=== PATIENT | female | born 1960 | race Caucasian/White ===

== ENCOUNTER → 2020-11-07 16:28 | Outpatient (CLI) | payer MEDICARE, SELFPAY ==
[2020-11-07 17:39] LABS: White Blood Count 5.6 K/mm3 (4.8-10.8)
[2020-11-07 17:40] LABS: Basophils % 0.4 % (0.1-2.0); Eosinophils % 0.1 % (0.1-12.0); Hematocrit 42.1 % (37.0-47.0); Hemoglobin 13.2 g/dL (12.2-16.2); Lymphocytes # 2.1 K/mm3 (0.7-4.5); Lymphocytes % 37.4 % (10-50); Mean Corpuscular HGB Conc 31.3 g/dL (31.8-35.4); Mean Corpuscular Volume 92.4 fl (81-99); Mean Platelet Volume 7.6 fl (7.4-10.4); Monocytes # 0.4 K/mm3 (0.1-1.0); Monocytes % 6.9 % (1.7-9.3); Neutrophils # 3.1 K/mm3 (1.8-7.8); Neutrophils % 55.1 % (37.0-80.0); Platelet Count 271 K/mm3 (142-424); Red Blood Count 4.56 M/mm3 (4.20-5.40); Red Cell Distribution Width 13.4 % (11.5-17.5)
[2020-11-07 21:51] LABS: Alanine Aminotransferase 14 U/L (12-78); Albumin Level 3.7 g/dl (3.5-5.0); Albumin/Globulin Ratio 1.2 (1.1-1.8); Alkaline Phosphatase 194 U/L (38-126); Anion Gap 14.1 mEq/L (5-15); Aspartate Amino Transferase 29 U/L (14-36); Bilirubin,Total 0.5 mg/dl (0.2-1.3); Blood Urea Nitrogen 15 mg/dl (7-17); Calcium 9.1 mg/dl (8.4-10.2); Carbon Dioxide 25 mmol/L (22.0-30.0); Chloride 107 mmol/L (98-107); Cholesterol 174 mg/dl (140-200); Estimated Glomerular Filt Rate 27 ml/min (>60); GFR (African American) 32 ML/MIN (>60); Globulin 3.1 g/dL (1.3-3.2); Glucose 82 mg/dl (74-100); HDL Cholesterol 43 mg/dl (40-60); Magnesium 1.7 mg/dl (1.6-2.3); Potassium 3.1 mmoL/L (3.5-5.1); Sodium 143 mmol/L (136-145); Total Protein,Serum 6.8 g/dl (6.3-8.2); Triglycerides 220 mg/dl (30-150); VLDL Cholesterol 44 mg/dL (0-40)
[2020-11-07 22:02] LABS: Direct LDL Cholesterol 85.76 mg/dL (100-129)
[2020-11-07 22:22] LABS: Thyroid Stimulating Hormone 2.36 uIU/mL (0.465-4.68)
[2020-11-08 09:29] LABS: Ferritin 74.4 ng/ml (11.1-264)
[2020-11-11 08:04] LABS: Levetiracetam (Keppra) 39.8 ug/mL (10.0-40.0)
== END ==
PROVIDERS: Visit Provider Internal Medicine Adolescent Medicine
DX: R19.7 Diarrhea, unspecified (principal); R56.9 Unspecified convulsions; G25.81 Restless legs syndrome; Z51.81 Encounter for therapeutic drug level monitoring; Z79.899 Other long term (current) drug therapy
CPT/HCPCS: 36415; 80053; 80061; 80177; 82728; 83036; 83735; 84443; 85025

== ENCOUNTER → 2021-01-25 16:27 | Outpatient (CLI) | payer MEDICARE, SELFPAY ==
[2021-01-25 17:25] LABS: Chloride 108 mmol/L (98-107); Sodium 140 mmol/L (136-145)
[2021-01-25 17:28] LABS: Blood Urea Nitrogen 13 mg/dl (7-17); Carbon Dioxide 25 mmol/L (22.0-30.0); Estimated Glomerular Filt Rate 33 ml/min (>60); GFR (African American) 40 ML/MIN (>60)
[2021-01-25 17:29] LABS: Calcium 8.9 mg/dl (8.4-10.2); Glucose 88 mg/dl (74-100)
== END ==
PROVIDERS: Visit Provider Internal Medicine Adolescent Medicine
DX: E11.69 Type 2 diabetes mellitus with other specified complication (principal); Z79.4 Long term (current) use of insulin
CPT/HCPCS: 36415; 80048

== ENCOUNTER 2021-01-26 19:05 | Emergency (ER) | payer MEDICARE, SELFPAY ==
--- NOTE | 2021-01-26 19:01 | ECG_ITS ---
APPROVED REPORT Exam: Resting ECG HR:76 bpm ECG Measurements Heart Rate 76 AXES [place] 166 P 65 QRSd 90 QRS 41 QT 430 T 71 QTc 483 Conclusion Normal sinus rhythm Normal ECG Electronically signed by : Zachariah Mercado MD 01/28/2021 08:58:40
[2021-01-26 19:03] VITALS: BP 113/63; PULSE 88; RESP 16; TEMP 36.9; O2SAT 99; BMI 44.6
--- NOTE | 2021-01-26 19:21 | CT_ITS ---
PROCEDURE INFORMATION: Exam: CT Cervical Spine Without Contrast Exam date and time: 01/26/2021 7:21 PM Age: 60 years old Clinical indication: Injury or trauma; Fall TECHNIQUE: Imaging protocol: Computed tomography images of the cervical spine without contrast. Radiation optimization: All CT scans at this facility use at least one of these dose optimization techniques: automated exposure control; mA and/or kV adjustment per patient size (includes targeted exams where dose is matched to clinical indication); or iterative reconstruction. COMPARISON: CT HEAD/BRAIN WO CON 01/26/2021 7:37 PM FINDINGS: Bones/joints: No cervical fracture or subluxation. Severe osteopenia and advanced degenerative changes. No CT evidence of critical stenosis. Discs/Spinal canal/Neural foramina: See Bones/joints finding. Lungs: Lung apices are normal. Soft tissues: Unremarkable. IMPRESSION: No cervical fracture or subluxation.
--- NOTE | 2021-01-26 19:21 | CT_ITS ---
PROCEDURE INFORMATION: Exam: CT Head Without Contrast Exam date and time: 01/26/2021 7:21 PM Age: 60 years old Clinical indication: Injury or trauma; Fall TECHNIQUE: Imaging protocol: Computed tomography of the head without contrast. 3D rendering (Not supervised by radiologist): MIP and/or 3D reconstructed images were created by the technologist. Radiation optimization: All CT scans at this facility use at least one of these dose optimization techniques: automated exposure control; mA and/or kV adjustment per patient size (includes targeted exams where dose is matched to clinical indication); or iterative reconstruction. COMPARISON: No relevant prior studies available. FINDINGS: Brain: No intracranial bleed, suspicious mass, or mass effect. Ventricles appear unremarkable. Cerebral ventricles: See Brain finding. Paranasal sinuses: Visualized sinuses are unremarkable. No fluid levels. Mastoid air cells: Visualized mastoid air cells are well aerated. Bones/joints: Unremarkable. No acute fracture. Soft tissues: Unremarkable. IMPRESSION: No intracranial bleed, suspicious mass, or mass effect. Ventricles appear unremarkable.
--- NOTE | 2021-01-26 19:21 | XR_ITS ---
PROCEDURE INFORMATION: Exam: XR Pelvis Exam date and time: 01/26/2021 7:21 PM Age: 60 years old Clinical indication: Injury or trauma; Fall; Blunt trauma (contusions or hematomas); Bilateral; Hip TECHNIQUE: Imaging protocol: XR pelvis. Views: 1 or 2 view. COMPARISON: CT LUMBAR SPINE WO CON 01/26/2021 7:46 PM FINDINGS: Limitations: External rotation of hip joints limits evaluation of proximal femurs. Bones/joints: No acute fracture or malalignment. Pubic symphysis and bilateral sacroiliac joints are congruent. Soft tissues: Unremarkable. IMPRESSION: No acute osseous abnormality in the pelvis.
--- NOTE | 2021-01-26 19:21 | CT_ITS ---
PROCEDURE INFORMATION: Exam: CT Thoracic Spine Without Contrast Exam date and time: 01/26/2021 7:21 PM Age: 60 years old Clinical indication: Injury or trauma; Fall TECHNIQUE: Imaging protocol: Computed tomography images of the thoracic spine without contrast. Radiation optimization: All CT scans at this facility use at least one of these dose optimization techniques: automated exposure control; mA and/or kV adjustment per patient size (includes targeted exams where dose is matched to clinical indication); or iterative reconstruction. COMPARISON: CT CERVICAL SPINE WO CON 01/26/2021 7:40 PM FINDINGS: Vertebrae: Multilevel bridging osteophytes in the spine, compatible with diffuse idiopathic skeletal hyperostosis (DISH). Dextrocurvature in the midthoracic spine. No acute fracture or malalignment. Discs/Spinal canal/Neural foramina: Multilevel degenerative disc disease. Soft tissues: Unremarkable. IMPRESSION: 1. No acute osseous abnormality in the thoracic spine. 2. Diffuse idiopathic skeletal hyperostosis (DISH). 3. Multilevel degenerative disc disease.
--- NOTE | 2021-01-26 19:21 | XR_ITS ---
PROCEDURE INFORMATION: Exam: XR Chest Exam date and time: 01/26/2021 7:21 PM Age: 60 years old Clinical indication: Injury or trauma; Fall; Blunt trauma (contusions or hematomas) TECHNIQUE: Imaging protocol: XR of the chest. Views: 1 view. COMPARISON: CT THORACIC SPINE WO CON 01/26/2021 7:43 PM FINDINGS: Lungs: Lungs are clear. Pleural spaces: No pleural effusion. No pneumothorax. Heart/Mediastinum: Cardiomediastinal silouhette is within normal limits. Bones/joints: No acute osseous abnormality. Soft tissues: Unremarkable. IMPRESSION: No acute findings.
--- NOTE | 2021-01-26 19:22 | [facility].EDGENADL ---
ED Disposition Condition on Discharge: Fair - Critical Care Critical Care Time: No <RafyJason bates - Last Filed: 01/26/21 20:20> Condition on Discharge: Fair Time of Disposition: 21:41 - Critical Care Critical Care Time: No <Carson Bangura - Last Filed: 01/26/21 21:41> Clinical Impression: Syncope and collapse, Hypokalemia Disposition: Left Against Medical Advice Referrals: Provider,Referral, [Referring] - Zachariah Mercado MD [Primary Care Provider] - 01/27/21 Attestation: On 01/26/21, the high probability of a clinically significant, sudden or life threatening deterioration of the following system(s) required my full and direct attention, intervention and personal management. The time I documented below is in addition to time spent performing reported procedures but includes the following listed in this critical care notation. Medical Decision Making - Harjinder Inquiry Pt receiving controlled substance: No - Lab Data Result diagrams: 01/26/21 19:19 01/26/21 19:19 <Ana MariaJason - Last Filed: 01/26/21 20:20> - Medical Records Medical records reviewed: Yes: I reviewed the patient's medical records. - Harjinder Inquiry Pt receiving controlled substance: No - Lab Data Lab results reviewed: Yes: I reviewed the patient's lab results. Result diagrams: 01/26/21 19:19 01/26/21 19:19 <Carson Bangura - Last Filed: 01/26/21 21:41> Vital Signs: 01/26/21 19:03 Temperature 98.4 F Temperature Source Oral Pulse Rate [Right] 88 Respiratory Rate 16 Blood Pressure [Right Arm] 113/63 Blood Pressure Mean [Right Arm] 79 02 Sat by Pulse Oximetry 99 - Lab Data Lab Results 01/26/21 19:19: WBC 5.1, RBC 4.15 L, Hgb 12.4, Hct 39.2, MCV 94.6, MCH 29.9, MCHC 31.6 L, RDW 14.2, Plt Count 235, MPV 8.1, Neut % (Auto) 59.6, Lymph % (Auto) 33.2, [place] % (Auto) 6.0, Eos % (Auto) 0.3, Baso % (Auto) 1.0, Neut # (Auto) 3.0, Lymph # (Auto) 1.7, [place] # (Auto) 0.3, Eos # (Auto) 0.0, Baso # (Auto) 0.1 01/26/21 19:19: Sodium 140, Potassium 2.8 L*, Chloride 109 H, Carbon Dioxide 27, Anion Gap 6.8, BUN 15, Creatinine 1.80 H, Estimated Creat Clear 28, Estimated GFR 29 L, Est GFR ( Amer) 34 L, Glucose 101 H, Calcium 8.3 L, Total Bilirubin 0.2, AST 32, ALT 10 L, Alkaline Phosphatase 169 H, Troponin I < 0.01, Total Protein 5.8 L, Albumin 2.8 L, Globulin 3.0, Albumin/Globulin Ratio 0.9 L 01/26/21 19:19: Lipase 27 Orders (Tests/Meds): ED MEDICATIONS Discontinued Medications Generic Name Dose Route Start Last Admin Trade Name Freq PRN Reason Stop Dose Admin Potassium Chloride 60 meq 01/26/21 20:03 01/26/21 20:23 Potassium Chloride 20meq Tab PO 01/26/21 20:04 60 meq ONCE ONE Administration Sodium Chloride 1,000 ml 01/26/21 20:00 01/26/21 20:22 Sodium Chloride 0.9% 1000ml Bag IV 01/26/21 20:01 1,000 ml BOLUS ONE Administration ORDERS Category Date Time Status Lactic Acid Stat Lab 01/26/21 19:37 Ordered Rapid PCR Covid and Flu A/B Stat Lab 01/26/21 19:38 Ordered Troponin I Q3H Lab 01/26/21 22:30 Ordered Troponin I Q3H Lab 01/27/21 01:30 Ordered Urinalysis and Microscopic Stat Lab 01/26/21 19:38 Ordered Blood Culture Stat Micro 01/26/21 19:37 Ordered - ECG Data Tracing #1 EKG interpreted by Jason Rodgers MD: Rhythm: sinus Rate: 76 [place]: normal Ectopy: none Conduction: normal ST Segment Changes: none T Wave Changes: none Q Waves: none No evidence of acute ischemia or injury (Jason Rodgers) Medical Decision Narrative: I assumed care of the pt at shift change. She has received 1L bolus and K+ 60meq PO for her hypokalemia. Her BP is normal. She denies any recent illness to me, which is very different from what Dr. Rodgers was told on initial exam. All of her imaging is benign for acute pathology. I have shared the pt's findings with her a bedside. I have also d/w Dr. Cantu. He agrees with admission for reported syncopal episode. When discussed w/ the pt, sanya
[2021-01-26 19:33] LABS: Basophils # 0.1 K/mm3 (0-0.2); Eosinophils % 0.3 % (0.1-12.0); Hematocrit 39.2 % (37.0-47.0); Hemoglobin 12.4 g/dL (12.2-16.2); Lymphocytes # 1.7 K/mm3 (0.7-4.5); Lymphocytes % 33.2 % (10-50); Mean Corpuscular HGB Conc 31.6 g/dL (31.8-35.4); Mean Corpuscular Hemoglobin 29.9 pg (27.0-31.2); Mean Corpuscular Volume 94.6 fl (81-99); Mean Platelet Volume 8.1 fl (7.4-10.4); Monocytes # 0.3 K/mm3 (0.1-1.0); Neutrophils % 59.6 % (37.0-80.0); Platelet Count 235 K/mm3 (142-424); Red Blood Count 4.15 M/mm3 (4.20-5.40); Red Cell Distribution Width 14.2 % (11.5-17.5); White Blood Count 5.1 K/mm3 (4.8-10.8)
--- NOTE | 2021-01-26 19:35 | CT_ITS ---
PROCEDURE INFORMATION: Exam: CT Lumbar Spine Without Contrast Exam date and time: 01/26/2021 7:35 PM Age: 60 years old Clinical indication: Injury or trauma; Additional info: Fall TECHNIQUE: Imaging protocol: Computed tomography images of the lumbar spine without contrast. Radiation optimization: All CT scans at this facility use at least one of these dose optimization techniques: automated exposure control; mA and/or kV adjustment per patient size (includes targeted exams where dose is matched to clinical indication); or iterative reconstruction. COMPARISON: CT THORACIC SPINE WO CON 01/26/2021 7:43 PM FINDINGS: Vertebrae: There are 5 lumbar type vertebral bodies with standard lumbosacral anatomy. No acute fracture or malalignment. Minor anterior wedging at T11, likely physiologic. Lumbar vertebral body heights are maintained. No spondylolisthesis. Discs/Spinal canal/Neural foramina: Multi-level degenerative disc disease. L1-L2: No significant spinal canal stenosis or neuroforaminal narrowing. L2-L3: Mild spinal canal stenosis secondary to epidural lipomatosis and ligamentum flavum hypertrophy. No significant neuroforaminal narrowing. L3-L4: Mild spinal canal stenosis secondary to epidural lipomatosis and ligamentum flavum hypertrophy. No significant neuroforaminal narrowing. L4-L5: Moderate spinal canal stenosis secondary to broad-based posterior disc bulge, epidural lipomatosis and ligamentum flavum hypertrophy. Mild bilateral neuroforaminal narrowing secondary to facet hypertrophy. L5-S1: No significant spinal canal stenosis. Moderate bilateral neuroforaminal narrowing secondary to facet hypertrophy. Soft tissues: Unremarkable. IMPRESSION: 1. No acute osseous abnormality in the lumbar spine. 2. Multi-level degenerative changes, as detailed above.
--- NOTE | 2021-01-26 19:36 | XR_ITS ---
PROCEDURE INFORMATION: Exam: XR Right Knee Exam date and time: 01/26/2021 7:36 PM Age: 60 years old Clinical indication: Injury or trauma; Fall; Blunt trauma; Knee; Right TECHNIQUE: Imaging protocol: XR Right knee. Views: 3 views. COMPARISON: No relevant prior studies available. FINDINGS: Bones/joints: Bones are poorly mineralized. No significant joint effusion. No acute fracture or malalignment. Tricompartmental osteoarthrosis, most prominent in the medial compartment with there is severe joint space narrowing with suggestion of of physiologic varus on this nonweightbearing exam. Soft tissues: Soft tissue edema noted. IMPRESSION: 1. No acute osseous abnormality in the right knee. 2. Tricompartmental osteoarthrosis, most prominent in the medial compartment with there is severe joint space narrowing.
--- NOTE | 2021-01-26 19:36 | XR_ITS ---
PROCEDURE INFORMATION: Exam: XR Left Knee Exam date and time: 01/26/2021 7:36 PM Age: 60 years old Clinical indication: Injury or trauma; Fall; Blunt trauma; Knee; Left TECHNIQUE: Imaging protocol: XR Left knee. Views: 3 views. COMPARISON: No relevant prior studies available. FINDINGS: Bones/joints: Bones are poorly mineralized. No significant joint effusion. No acute fracture or malalignment. Tricompartmental osteoarthrosis, most prominent in the medial compartment where there is severe joint space narrowing. Soft tissues: Soft tissue edema noted. IMPRESSION: 1. No acute osseous abnormality in the left knee. 2. Tricompartmental osteoarthrosis, most prominent in the medial compartment where there is severe joint space narrowing.
--- NOTE | 2021-01-26 19:37 | CT_ITS ---
PROCEDURE INFORMATION: Exam: CT Abdomen And Pelvis Without Contrast Exam date and time: 01/26/2021 7:37 PM Age: 60 years old Clinical indication: Abdominal pain; Patient HX: Fall, abd pain generalized TECHNIQUE: Imaging protocol: Computed tomography of the abdomen and pelvis without contrast. Radiation optimization: All CT scans at this facility use at least one of these dose optimization techniques: automated exposure control; mA and/or kV adjustment per patient size (includes targeted exams where dose is matched to clinical indication); or iterative reconstruction. COMPARISON: CR XR PELVIS 1-2V 01/26/2021 7:59 PM FINDINGS: Liver: Within normal limits. Gallbladder and bile ducts: Status post cholecystectomy. Pancreas: Within normal limits. Spleen: Within normal limits. Adrenal glands: Within normal limits. Kidneys and ureters: Coarse calcification in the mid right renal cortex compatible with chronic sequelae of prior trauma. Punctate (2-3 mm) non-obstructing stone in the lower pole of the left kidney. No hydronephrosis bilaterally. Stomach and bowel: Cecum located in the right upper quadrant. Appendix: Appendix is normal. Intraperitoneal space: No free fluid. No pneumoperitoneum. Vasculature: Mild amount of calcified and non-calcified arterial atherosclerosis. No abdominal aortic aneurysm. Lymph nodes: No enlarged lymph nodes by CT criteria. Urinary bladder: Within normal limits. Reproductive: Within normal limits. Bones/joints: Multiple chronic rib fracture deformities in the posterolateral lower right thorax. No acute osseous abnormality or suspicious bone lesions. Soft tissues: Unremarkable. IMPRESSION: 1. No acute findings in the abdomen or pelvis. 2. Punctate (2-3 mm) non-obstructing stone in the lower pole of the left kidney. 3. Cecum located in the right upper quadrant, compatible with hypermobile cecum. 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 Please correlate with patient history.
[2021-01-26 19:39] LABS: Alanine Aminotransferase 10 U/L (12-78); Albumin Level 2.8 g/dl (3.5-5.0); Albumin/Globulin Ratio 0.9 (1.1-1.8); Alkaline Phosphatase 169 U/L (38-126); Anion Gap 6.8 mEq/L (5-15); Aspartate Amino Transferase 32 U/L (14-36); Bilirubin,Total 0.2 mg/dl (0.2-1.3); Blood Urea Nitrogen 15 mg/dl (7-17); Calcium 8.3 mg/dl (8.4-10.2); Carbon Dioxide 27 mmol/L (22.0-30.0); Chloride 109 mmol/L (98-107); Creatinine Clearance Estimated 28 mL/min (50-200); Estimated Glomerular Filt Rate 29 ml/min (>60); GFR (African American) 34 ML/MIN (>60); Glucose 101 mg/dl (74-100); Sodium 140 mmol/L (136-145); Total Protein,Serum 5.8 g/dl (6.3-8.2)
[2021-01-26 20:00] LABS: Troponin I < 0.01 ng/ml (0.00-0.034)
[2021-01-26 20:01] LABS: Potassium 2.8 mmoL/L (3.5-5.1)
[2021-01-26 20:38] LABS: Lipase 27 U/L (23-300)
--- NOTE | 2021-01-26 21:42 | PC.NURSE ---
pt requesting to leave ama. PELLETIER at bedside and pt pt continues to request to leave.
[2021-01-26 22:33] VITALS: BP 124/75; PULSE 80; RESP 16; TEMP 36.9; O2SAT 99
== END 2021-01-26 22:35 | disposition left against medical advice (07) ==
PROVIDERS: Emergency Provider Emergency Medicine; PCP Internal Medicine Adolescent Medicine
DX: R55 Syncope and collapse (principal); E87.6 Hypokalemia; W01.0XXA Fall on same level from slipping, tripping and stumbling without subsequent striking against object, initial encounter; Y92.129 Unspecified place in nursing home as the place of occurrence of the external cause; S00.90XA Unspecified superficial injury of unspecified part of head, initial encounter; M25.561 Pain in right knee; M25.562 Pain in left knee; M54.50 Low back pain, unspecified
CPT/HCPCS: 70450; 71045; 72125; 72128; 72131; 72170; 73562; 74176; 80053; 83690; 84484; 85025; 93005; 96365; 99282

== ENCOUNTER → 2021-02-08 17:44 | Outpatient (CLI) | payer MEDICARE, SELFPAY ==
--- NOTE | 2021-02-08 | XR_ITS ---
PROCEDURE INFORMATION: Exam: XR Lumbosacral Spine Exam date and time: 02/08/2021 12:00 AM Age: 60 years old Clinical indication: Patient HX: Low back pain; Obesity TECHNIQUE: Imaging protocol: XR of the lumbosacral spine. Views: 4 or 5 views. COMPARISON: CT LUMBAR SPINE WO CON 01/26/2021 7:46 PM FINDINGS: Bones/joints: The lumbar spine demonstrates mild degenerative changes at multiple levels. The facet joints demonstrate mild degenerative hypertrophy and sclerosis. Anterior compression deformity of T12 is present similar to the prior study. Soft tissues: Unremarkable. IMPRESSION: 1. The lumbar spine demonstrates mild degenerative changes at multiple levels. 2. Anterior compression deformity of T12 is present similar to the prior study.
== END ==
PROVIDERS: PCP Internal Medicine Adolescent Medicine; Visit Provider Internal Medicine Adolescent Medicine
DX: M54.50 Low back pain, unspecified (principal)
CPT/HCPCS: 72110

== ENCOUNTER → 2021-03-15 13:29 | Outpatient (CLI) | payer MEDICARE, SELFPAY ==
--- NOTE | 2021-03-15 13:34 | XR_ITS ---
PROCEDURE: XR WRIST RT MIN 3V CLINICAL INDICATION: PAIN IN RT WRIST COMPARISON: No exams were available for comparison FINDINGS: No fracture or dislocation. No lytic or blastic change. There is normal mineralization. Minimal osteoarthritic change 1st carpal metacarpal joint Other findings:There is prominence of the scapholunate space. IMPRESSION: Mild osteoarthritis 1st metacarpal-carpal joint otherwise negative Prominent scapholunate space which may be seen with ligamentous injury. Dictated by: Allan Katz MD 03/15/2021 15:36 Allan Katz MD in [facility] 03/15/2021 15:36
--- NOTE | 2021-03-15 13:34 | XR_ITS ---
PROCEDURE: XR WRIST LT MIN 3V CLINICAL INDICATION: PAIN IN LT WRIST COMPARISON: No exams were available for comparison FINDINGS: Severe osteoarthritic changes are present at the 1st carpal metacarpal junction with bony hypertrophy medially. The scaphoid appears somewhat rotated lying more horizontal with the distal radius than normal. Lunate is abnormal. There appears to be an old lunate fracture with fragments displaced anteriorly and posteriorly. Suggest CT of the wrist for for further evaluation. IMPRESSION: Suspected old lunate fracture with fragments displaced anteriorly and posteriorly with rotated scaphoid. Recommend CT of the wrist for more thorough evaluation. 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
== END ==
PROVIDERS: PCP Internal Medicine Adolescent Medicine; Visit Provider Internal Medicine Adolescent Medicine
DX: M25.531 Pain in right wrist (principal); M25.532 Pain in left wrist
CPT/HCPCS: 73110

== ENCOUNTER → 2021-04-10 14:51 | Outpatient (CLI) | payer MEDICARE, SELFPAY ==
[2021-04-10 15:36] LABS: Basophils % 0.6 % (0.1-2.0); Eosinophils % 0.3 % (0.1-12.0); Hematocrit 40.1 % (37.0-47.0); Hemoglobin 12.5 g/dL (12.2-16.2); Lymphocytes # 1.6 K/mm3 (0.7-4.5); Lymphocytes % 24.9 % (10-50); Mean Corpuscular HGB Conc 31.1 g/dL (31.8-35.4); Mean Corpuscular Hemoglobin 30.1 pg (27.0-31.2); Mean Platelet Volume 8.1 fl (7.4-10.4); Monocytes # 0.3 K/mm3 (0.1-1.0); Monocytes % 4.1 % (1.7-9.3); Neutrophils # 4.5 K/mm3 (1.8-7.8); Neutrophils % 70.2 % (37.0-80.0); Platelet Count 226 K/mm3 (142-424); Red Blood Count 4.13 M/mm3 (4.20-5.40); Red Cell Distribution Width 13.8 % (11.5-17.5); White Blood Count 6.4 K/mm3 (4.8-10.8)
[2021-04-10 16:03] LABS: Albumin Level 3.5 g/dl (3.5-5.0); Anion Gap 12.3 mEq/L (5-15); Blood Urea Nitrogen 22 mg/dl (7-17); Carbon Dioxide 21 mmol/L (22.0-30.0); Chloride 111 mmol/L (98-107); Estimated Glomerular Filt Rate 25 ml/min (>60); GFR (African American) 31 ML/MIN (>60); Glucose 109 mg/dl (74-100); Potassium 4.3 mmoL/L (3.5-5.1); Sodium 140 mmol/L (136-145)
[2021-04-10 16:09] LABS: 25-OH Vitamin D, Total 40.3 ng/mL (30-100)
[2021-04-10 16:14] LABS: Intact Parathyroid Hormone 79.5 pg/mL (7.5-53.5)
== END ==
PROVIDERS: PCP Internal Medicine Adolescent Medicine; Visit Provider Internal Medicine
DX: I12.9 Hypertensive chronic kidney disease with stage 1 through stage 4 chronic kidney disease, or unspecified chronic kidney disease (principal); N18.4 Chronic kidney disease, stage 4 (severe); R79.89 Other specified abnormal findings of blood chemistry; Z72.0 Tobacco use
CPT/HCPCS: 36415; 80069; 82306; 83970; 85025

== ENCOUNTER → 2021-04-11 15:37 | Outpatient (CLI) | payer MEDICARE, SELFPAY ==
[2021-04-11 15:39] LABS: Microscopic, Urine URINE MICROSCOPIC (MICROSCOPIC)
[2021-04-11 16:57] LABS: Appearance,Urine CLEAR (Clear); Bilirubin,Urine Negative (Negative); Blood, Urine Negative (Negative); Color,Urine YELLOW (Yellow); Glucose,Urine (UA) Negative (Negative); Ketones,Urine Negative (Negative); Leukocyte Esterase,Urine 1+ (Negative); Nitrate,Urine Negative (Negative); PH,Urine 5.5 (5.0-8.5); Protein,Urine Negative (Negative); Specific Gravity, Urine >= 1.030 (1.005-1.030); Urobilinogen,Urine 0.2 EU/dl (0.2)
[2021-04-11 17:18] LABS: Bacteria,Urine 1+ /lpf
[2021-04-11 20:37] LABS: Creatinine,Urine Random 142 mg/dL (Not Estab.)
[2021-04-11 20:38] LABS: Microalbumin/Creatinine Ratio 26.1
== END ==
PROVIDERS: Visit Provider Internal Medicine
DX: N18.4 Chronic kidney disease, stage 4 (severe) (principal); I12.9 Hypertensive chronic kidney disease with stage 1 through stage 4 chronic kidney disease, or unspecified chronic kidney disease; R79.89 Other specified abnormal findings of blood chemistry; B96.1 Klebsiella pneumoniae [K. pneumoniae] as the cause of diseases classified elsewhere; B96.20 Unspecified Escherichia coli [E. coli] as the cause of diseases classified elsewhere; Z72.0 Tobacco use; R82.90 Unspecified abnormal findings in urine
CPT/HCPCS: 81001; 82043; 82570; 87086; 87088; 87186

== ENCOUNTER 2021-07-20 22:39 | Observation (INO) | payer MEDICARE, SELFPAY ==
[2021-07-20 22:38] VITALS: BP 105/56; PULSE 65; RESP 16; TEMP 37.3; O2SAT 98; BMI 49.4
--- NOTE | 2021-07-20 22:52 | [facility].EDGENADL ---
ED Disposition Clinical Impression: Osteoarthritis Qualifiers: Osteoarthritis location: knee Osteoarthritis type: primary Laterality: right Qualified Code(s): M17.11 - Unilateral primary osteoarthritis, right knee Disposition: Home, Self-Care Condition on Discharge: Good Additional Instructions: Continue taking home medications as previously directed. Okay to take Tylenol for pain. Follow-up with orthopedics as an outpatient, they will contact you for an appointment time. Return with new, worsening, concerning symptoms. Referrals: Zachariah Mercado MD [Primary Care Provider] - Abelardo Blake MD [Staff Physician] - - Critical Care Critical Care Time: No Attestation: On 07/20/21, the high probability of a clinically significant, sudden or life threatening deterioration of the following system(s) required my full and direct attention, intervention and personal management. The time I documented below is in addition to time spent performing reported procedures but includes the following listed in this critical care notation. Medical Decision Making - Medical Records Medical records reviewed: Yes: I reviewed the patient's medical records. - Harjinder Inquiry Pt receiving controlled substance: No Vital Signs: 07/20/21 22:38 Temperature 99.1 F Temperature Source Oral Pulse Rate [Left] 65 Respiratory Rate 16 Blood Pressure [Right Arm] 105/56 L Blood Pressure Mean [Right Arm] 72 02 Sat by Pulse Oximetry 98 Orders (Tests/Meds): ED MEDICATIONS Discontinued Medications Generic Name Dose Route Start Last Admin Trade Name Freq PRN Reason Stop Dose Admin Acetaminophen 1,000 mg 07/20/21 23:02 07/20/21 23:40 Acetaminophen 500mg Tab PO 07/20/21 23:03 1,000 mg ONCE ONE Administration - Radiology Data #1 Image(s): Pelvis Image Reviewed: Yes I reviewed the patient's radiology results, Yes I reviewed the patient's radiology image FINDINGS: Bones/joints: Unremarkable. No acute fracture. Soft tissues: Unremarkable. IMPRESSION: No acute findings. #2 Image(s): Knee Image Reviewed: Yes I reviewed the patient's radiology results, Yes I reviewed the patient's radiology image FINDINGS: Bones/joints: Moderate tricompartmental primary osteoarthritis is present. Soft tissues: Unremarkable. IMPRESSION: Moderate tricompartmental primary osteoarthritis is present. No acute fracture identified. IMPRESSION: No acute fracture identified. Medical Decision Narrative: 61-year-old female with history of obesity, COPD, chronic back pain, chronic knee pain presenting to the ED with pain in her right leg. Differential diagnoses include patella fracture, tibia fracture, musculoskeletal strain, knee dislocation, deconditioning, osteoarthritis. Given this work-up will include x-rays of the right tibia, femur, knee, pelvis. Vital signs are stable. No other abnormalities on exam, she does have tenderness with flexion of her right knee. I do not feel the labs or further studies are currently indicated. She was given 1 g of Tylenol for pain, 30 mg intramuscular Toradol, 10 mg oral Decadron x-ray with no acute fracture or dislocation, patient does have tricompartmental osteoarthritis of the right knee which is likely why she is experiencing this pain. Patient does not need admission, she is sleeping and appears comfortable on repeat exam. At this point I feel that she is okay for discharge. I will provide referral for outpatient orthopedics for her severe osteoarthritis. She is comfortable this plan. She was subsequently discharged in stable condition. General Adult HPI - General Stated complaint: Pain Time Seen by Provider: 07/20/21 22:52 Mode of Arrival: EMS Source of Information: Patient Limitations: No Limitations - History of Present Illness HPI narrative: 61-year-old female with history of COPD, obesity, chronic back pain, chronic knee pain who is presenting to the E
--- NOTE | 2021-07-20 23:00 | XR_ITS ---
PROCEDURE INFORMATION: Exam: XR Right Femur Exam date and time: 07/20/2021 11:05 PM Age: 61 years old Clinical indication: Pain; Lower leg; Right; Additional info: Right knee pain, diff walking, fell on Saturday TECHNIQUE: Imaging protocol: XR Right femur. Views: 2 views. Total images: 4 COMPARISON: CR XR LUMBAR SPINE MIN 4V 02/08/2021 5:49 PM FINDINGS: Bones/joints: Osseous demineralization is evident. Moderate tricompartmental primary osteoarthritis is present at the knee. Soft tissues: Unremarkable. IMPRESSION: No acute fracture identified.
--- NOTE | 2021-07-20 23:00 | XR_ITS ---
PROCEDURE INFORMATION: Exam: XR Pelvis Exam date and time: 07/20/2021 11:05 PM Age: 61 years old Clinical indication: Hip pain; Right hip; Additional info: Fall, diff walking TECHNIQUE: Imaging protocol: XR pelvis. Views: 1 or 2 view. Total images: 2 COMPARISON: CT ABDOMEN PELVIS WO CON 01/26/2021 8:17 PM FINDINGS: Bones/joints: Unremarkable. No acute fracture. Soft tissues: Unremarkable. IMPRESSION: No acute findings.
--- NOTE | 2021-07-20 23:00 | XR_ITS ---
PROCEDURE INFORMATION: Exam: XR Right Tibia and Fibula Exam date and time: 07/20/2021 11:05 PM Age: 61 years old Clinical indication: Pain; Lower leg; Right; Additional info: Fall, diff walking TECHNIQUE: Imaging protocol: XR Right tibia and fibula. Views: 2 views. Total images: 4 COMPARISON: CR XR KNEE RT 3V 01/26/2021 7:59 PM FINDINGS: Bones/joints: Moderate tricompartmental primary osteoarthritis is present. Osseous demineralization is evident. Degeneration of the dorsal midfoot is present. Soft tissues: Subcutaneous edema diffusely worsens more distal in the lower leg. No soft tissue emphysema. Other findings: Incidental venous phlebolith noted. IMPRESSION: No acute fracture identified.
--- NOTE | 2021-07-20 23:00 | XR_ITS ---
PROCEDURE INFORMATION: Exam: XR Right Knee Exam date and time: 07/20/2021 11:05 PM Age: 61 years old Clinical indication: Pain; Lower leg; Right; Additional info: Fall, diff walking TECHNIQUE: Imaging protocol: XR Right knee. Views: 1 or 2 views. Total images: 2 COMPARISON: CR XR KNEE RT 3V 01/26/2021 7:59 PM FINDINGS: Bones/joints: Moderate tricompartmental primary osteoarthritis is present. Soft tissues: Unremarkable. IMPRESSION: Moderate tricompartmental primary osteoarthritis is present. No acute fracture identified.
[2021-07-21] VITALS (9 sets, daily range): BP systolic 96–140; BP diastolic 52–91; PULSE 51–68; RESP 18–22; TEMP 36.4–37; O2SAT 92–98; BMI 56.4
--- NOTE | 2021-07-21 00:42 | PC.NURSE ---
PT given a drink and crackers
--- NOTE | 2021-07-21 01:42 | PC.NURSE ---
Dr. Marly cuello
--- NOTE | 2021-07-21 01:43 | PC.NURSE ---
attempted to get pt to ambulate. pt was unable to move the left leg and was complaining about pain in the right leg. pt was given a im injection of ketorlac and there was a second attempt to move her. the pt was able to stand but not ambulate. she ultimately decided to be admitted
--- NOTE | 2021-07-21 01:44 | PC.NURSE ---
Dr. Kruger s/w Dr. Luke for poss admission
--- NOTE | 2021-07-21 01:46 | PC.NURSE ---
Dr. Luke agrees to adx, laundry marker supervisor notified for bed assignment.
--- NOTE | 2021-07-21 01:47 | XR_ITS ---
PROCEDURE INFORMATION: Exam: XR Chest Exam date and time: 07/21/2021 1:55 AM Age: 61 years old Clinical indication: Shortness of breath; Additional info: SOA TECHNIQUE: Imaging protocol: XR of the chest. Views: 1 view. Total images: 1 COMPARISON: CR XR CHEST PORTABLE 01/26/2021 7:59 PM FINDINGS: Lungs: Nonspecific bibasilar opacities, favoring atelectasis over pneumonia. Question pulmonary hyperinflation. Pleural spaces: Unremarkable. No pleural effusion. No pneumothorax. Heart/Mediastinum: Mild cardiomegaly. Bones/joints: Unremarkable. IMPRESSION: 1. Nonspecific bibasilar opacities, favoring atelectasis over pneumonia. 2. Question pulmonary hyperinflation. Recommend correlation with smoking history.
[2021-07-21 01:48] LABS: Coronavirus 19, PCR Not Detected (NotDetected); Influenza A, PCR Not Detected (NotDetected); Influenza B, PCR Not Detected (NotDetected)
[2021-07-21 02:00] LABS: Basophils # 0.1 K/mm3 (0-0.2); Basophils % 1.6 % (0.1-2.0); Eosinophils % 0.3 % (0.1-12.0); Hematocrit 39.2 % (37.0-47.0); Hemoglobin 12.6 g/dL (12.2-16.2); Lymphocytes # 1.3 K/mm3 (0.7-4.5); Lymphocytes % 18.3 % (10-50); Mean Corpuscular HGB Conc 32.1 g/dL (31.8-35.4); Mean Corpuscular Hemoglobin 31.2 pg (27.0-31.2); Mean Corpuscular Volume 97.2 fl (81-99); Mean Platelet Volume 9.1 fl (7.4-10.4); Monocytes # 0.4 K/mm3 (0.1-1.0); Monocytes % 5.5 % (1.7-9.3); Neutrophils # 5.3 K/mm3 (1.8-7.8); Neutrophils % 74.3 % (37.0-80.0); Platelet Count 205 K/mm3 (142-424); Red Blood Count 4.03 M/mm3 (4.20-5.40); Red Cell Distribution Width 13.6 % (11.5-17.5); White Blood Count 7.1 K/mm3 (4.8-10.8)
--- NOTE | 2021-07-21 02:06 | PC.NURSE ---
pt has been incontinent during stay, per MD place dia cath. Pt cleaned up and placed in a gown.
[2021-07-21 02:07] LABS: Alanine Aminotransferase 22 U/L (12-78); Albumin Level 3.7 g/dl (3.5-5.0); Albumin/Globulin Ratio 1.2 (1.1-1.8); Alkaline Phosphatase 178 U/L (38-126); Anion Gap 8.5 mEq/L (5-15); Aspartate Amino Transferase 28 U/L (14-36); Bilirubin,Total 0.4 mg/dl (0.2-1.3); Blood Urea Nitrogen 28 mg/dl (7-17); Calcium 8.7 mg/dl (8.4-10.2); Carbon Dioxide 28 mmol/L (22.0-30.0); Chloride 105 mmol/L (98-107); Creatinine Clearance Estimated 20 mL/min (50-200); Estimated Glomerular Filt Rate 24 ml/min (>60); GFR (African American) 29 ML/MIN (>60); Glucose 117 mg/dl (74-100); Potassium 3.5 mmoL/L (3.5-5.1); Sodium 138 mmol/L (136-145); Total Protein,Serum 6.7 g/dl (6.3-8.2)
[2021-07-21 02:16] LABS: NT Pro Brain Natriuretic Pep. 256 pg/mL (0-125)
[2021-07-21 02:43] LABS: Microscopic, Urine URINE MICROSCOPIC (MICROSCOPIC)
--- NOTE | 2021-07-21 03:07 | INFXCTL.NOTE ---
patient up to floor via stretcher @ this time.
[2021-07-21 04:02] LABS: Appearance,Urine CLEAR (Clear); Blood, Urine Negative (Negative); Color,Urine YELLOW (Yellow); Glucose,Urine (UA) Negative (Negative); Ketones,Urine Negative (Negative); Leukocyte Esterase,Urine Negative (Negative); Nitrate,Urine POSITIVE (Negative); PH,Urine 5.5 (5.0-8.5); Protein,Urine Negative (Negative); Specific Gravity, Urine >= 1.030 (1.005-1.030); Urobilinogen,Urine 0.2 EU/dl (0.2)
[2021-07-21 04:03] LABS: Bilirubin,Urine 1+ (Negative)
[2021-07-21 04:15] LABS: Bacteria,Urine Trace /lpf; Squamous Epithelial Cell,Urine Occasional #/hpf (0-5)
--- NOTE | 2021-07-21 07:24 | HMH.PHAVTE ---
[facility] Pharmacy VTE Monitoring - Patient Demographics Admission date: 07/20/21 Report Date: 07/21/21 Time: 07:24 Allergies/Adverse Reactions: Patient Allergies Penicillins Allergy (Verified 01/26/21 19:10) Height: 1.52 m Weight: 130.294 kg Patient Problems: Current Active Problems Osteoarthritis (Acute) - VTE Risk Labs: VTE Related Lab Results Hgb 12.6 g/dL (12.2-16.2) 07/21/21 01:50 Hct 39.2 % (37.0-47.0) 07/21/21 01:50 Plt Count 205 K/mm3 (142-424) 07/21/21 01:50 BUN 28 mg/dl (7-17) H 07/21/21 01:50 Creatinine 2.10 mg/dl (0.52-1.04) H 07/21/21 01:50 Estimated Creat Clear 20 mL/min (50-200) 07/21/21 01:50 Was VTE Risk Assessment Performed: Yes VTE Score: 3 VTE Risk Level: Low Risk - Prophylaxis VTE Prophylaxis Ordered?: Yes Types of VTE Prophylaxis: TEDS Knee High Location of Applied Device: Bilateral Lower Extremeties
--- NOTE | 2021-07-21 08:13 | CA_ITS ---
APPROVED REPORT EXAM: Comprehensive 2D, Doppler, and color-flow Echocardiogram [employer] Sales Manager: Felicia Henderson RVT Ht: 4 ft 11 in Wt: 287lbs BSA: 2.15 BP: 105/56 mmHg Indications: COPD,OBESITY,FLUID RETENTION 2D Dimensions LVOT 2.20 cm (M/F) 1.5-2.5 LA Volume 29.60 mL LA Volume Index 13.76 mL/m2 (M/F) 16-34 M-Mode Dimensions RVDd 2.53 cm (0.9-2.6) LA Diam 3.27 cm (1.9-4.0) LVDd 4.34 cm (3.5-5.7) Ao Diam 3.15 cm (2.0-3.7) LVDs 3.21 cm (3.5-5.7) IVSd 1.24 cm (0.6-1.1) PWd 0.80 cm (0.6-1.1) EF (Teich) 51.40% FS 26.00% EDV (Teich) 84.90 mL TAPSE 2.65 (<1.7) ESV (Teich) 41.30 mL LV Diastology E Decel Time 230.00 (160-240 msec) E/A Ratio 0.8 MED E' 4.60 (< 7 cm/sec) E'/MED E' Ratio 18.85 (>14) LAT E' 9.70 (<10 cm/sec) E/LAT E' Ratio 8.94 (>14) Aortic Valve AO Peak GR. 6.80 mmHg Mitral Valve MV E Max Dale. 87.00 (40-130 cm/s) MV A Velocity 107.00 (40-130 cm/s) E/A Ratio 0.81 MV Decel. Time 230.00 (160-240 ms) MV PHT 67.00 ms Pulmonary Valve PV Peak Velocity 91.00 (50-150 cm/s) Tricuspid Valve TR P. Velocity 266.00 cm/s RAP Estimate 10.00 mmHg RVSP 38.30 mmHg Left Ventricle Left atrium is mildly enlarged, left ventricle is normal size, mild concentric left ventricular hypertrophy, estimated ejection fraction 55% with no regional wall motion abnormality, grade 1 diastolic dysfunction seen without tissue Doppler evidence of raise left atrial pressure. Right Ventricle Right atrium and right ventricle are normal size and contractility. Aortic Valve Aortic valve is minimally thickened and fibrosed there is no aortic stenosis or aortic insufficiency. Mitral Valve Mitral valve grossly normal, there is trace mitral regurgitation. Tricuspid Valve Tricuspid grossly normal, there is trace tricuspid regurgitation, tricuspid regurgitation jet velocity is inadequate for calculation of the right ventricular systolic pressure. Pulmonic Valve Pulmonic valve is poorly visualized. Great Vessels Aortic root is normal size. Inferior vena cava is mildly dilated without significant inspiratory collapse. Pericardium No significant pericardial effusion noted. Conclusion 1. Mildly enlarged left atrium, normal left ventricular size, mild concentric left ventricular hypertrophy, estimated ejection fraction 55% with no regional wall motion abnormality, grade 1 diastolic dysfunction seen without tissue Doppler evidence of raise left atrial pressure. 2. Trace mitral and tricuspid regurgitation. 3. No significant pericardial effusion. 4. Inferior vena cava is mildly dilated without significant inspiratory collapse. Electronically signed by : George Ace MD 07/21/2021 17:00:20
--- NOTE | 2021-07-21 08:31 | HMH.HP ---
*Admission Date: 07/20/21 *Chief complaint: weakness, SOA, SHAYLA on CKD *History of present illness: 61-year-old female with history of obesity, COPD, chronic back pain, chronic knee pain presenting to the ED with pain in her right leg. Work-up initially relatively unremarkable other than significant edema on exam. She was given 1 g of Tylenol for pain, 30 mg intramuscular Toradol, 10 mg oral Decadron x-ray with no acute fracture or dislocation, patient does have tricompartmental osteoarthritis of the right knee which is likely why she is experiencing this pain. Appeared comfortable after treatment in the ER. Unfortunately when attempts were made to walk her to get her home, she was unable to bear weight and therefore felt to be unsafe to go home. Admitted for further assessment and work-up. On exam this morning, she states that she has been having a hard time getting around at home. Has been falling regularly. Has had increased swelling over the past several weeks in her legs. States that she is been having a hard time getting to the bathroom and having accidents with incontinence at home. Lives with her who helps care for her. Is somnolent on exam this morning wakes answers questions but easily falls back to sleep. Has 3+ edema in her lower extremities. Complains of orthopnea. [facility] History I have reviewed the patient's past medical history: Yes Medical History: Reports:: Chronic Obstructive Pulmonary Disease (COPD) Denies:: Cancer, Diabetes Mellitus Type 1, Diabetes Mellitus Type 2, MRSA *Have you ever received a pneumonia vaccine?: Yes *Have you received a flu vaccine this season?: Yes Other Medical History: Reports: Arthritis Other Surgeries: Yes: Cholecystectomy, Amputation: No Fractures: No - *Social History Last grade of school completed: GED Smoking Status: Current every day smoker Tobacco Type: cigarettes # Packs/Day (cigarettes): 1 Alcohol Intake: never *Occupational Status:: disabled Household Members: spouse *Travel in the last 8 weeks: None Family Hx:: No significant family history Review of Systems - Review of Systems Review of systems:: pertinent systems reviewed and negative unless documented below (14 point review of systems performed, pertinent positives and negatives as per HPI) Meds Home Medications Medication Instructions Recorded Confirmed Type ARIPiprazole [Aripiprazole] 10 mg pe PO DAILY 01/26/21 07/21/21 History Buspirone HCl [Buspirone 30mg 30 mg PO BID 01/26/21 07/21/21 History Tablets] Omeprazole [Omeprazole 40mg 40 mg PO DAILY 01/26/21 07/21/21 History Capsule] Topiramate 50 mg PO BID 01/26/21 07/21/21 History Trazodone HCl 100 mg PO HS 01/26/21 07/21/21 History Verapamil HCl [Verapamil ER] 120 mg PO HS 01/26/21 07/21/21 History levETIRAcetam [Levetiracetam] 500 mg PO DAILY 01/26/21 07/21/21 History Duloxetine HCl [Cymbalta] 60 mg PO DAILY 07/21/21 07/21/21 History Furosemide [Furosemide 20mg Tab*] 20 mg PO DAILY 07/21/21 07/21/21 History LORazepam [Lorazepam 0.5mg Tablet] 0.5 mg PO DAILYP PRN 07/21/21 07/21/21 History Potassium Chloride [Klor-Con 10mEq 20 meq PO DAILY 07/21/21 07/21/21 History tab] Propranolol HCl [Inderal 20mg 20 mg PO 1700 07/21/21 07/21/21 History Tablet] Ropinirole HCl [Requip 1mg Tablet] 1 mg PO DAILY 07/21/21 07/21/21 History Venlafaxine HCl [Venlafaxine HCl 150 mg PO DAILY 07/21/21 07/21/21 History ER] Allergies Allergy/AdvReac Type Severity Reaction Status Date / Time Penicillins Allergy Verified 01/26/21 19:10 Exam Vital signs and Labs for Last 24 Hours: Temp Pulse Resp BP Pulse Ox 97.5 F L 65 18 140/91 H 92 L 07/21/21 03:31 07/21/21 06:39 07/21/21 03:31 07/21/21 03:31 07/21/21 03:32 Laboratory Results - last 24 hr 07/21/21 01:44: SARS-CoV-2 (PCR) Not detected, Influenza A Untype (PCR) Not detected, Influenza Type B (PCR) Not detected 07/21/21 01:50: WBC 7.1, RBC 4.03 L, Hgb 12.6,
--- NOTE | 2021-07-21 08:32 | CA_ITS ---
FINAL REPORT CLINICAL HISTORY: PITTING EDEMA TAMEKA,BILATERAL LEG PAIN,OBESITY FINDINGS: Color Doppler, duplex Doppler and compression sonography of the bilateral lower extremities was performed. There is no evidence of deep venous thrombosis from the level of the groin to the calf. The deep veins are patent and compressible. IMPRESSION: No evidence of deep venous thrombosis bilateral lower extremities. Reviewed, Interpreted and Dictated by Levar Shah III, MD Transcribed by Becka Sevilla Authenticated by Levar Shah III, MD on 07/21/2021 11:11:52 AM [facility]
--- NOTE | 2021-07-21 09:55 | HMH.OTEV ---
OT Inpatient Evaluation Rehab OT IP Evaluation Start: 07/21/21 07:13 Freq: ONCE Status: Complete Protocol: Document 07/21/21 09:40 [facility] (Rec: 07/21/21 09:55 [facility] [id number]) Rehab OT IP Assessment Subjective History Pt oriented x 2 on arrival. Pt agreeable to engage in therapy evaluation. Pt was admitted via ED on 07/20/21 due to weakness, SOA, SHAYLA and CKD. Pt reports prior to being admitted she lived at home with her . Pt claims she was able to transfer herself independently from wheelchair. However, pt required assistance from with all ADLs such a dressing and bathing. Pt was able to feed herself with set up. Pt was dependent upon to complete all IADLs. The following information was copied from history and physical report: 61-year-old female with history of obesity, COPD, chronic back pain, chronic knee pain presenting to the ED with pain in her right leg. Work-up initially relatively unremarkable other than significant edema on exam. She was given 1 g of Tylenol for pain, 30 mg intramuscular Toradol, 10 mg oral Decadron x -ray with no acute fracture or dislocation, patient does have tricompartmental osteoarthritis of the right knee which is likely why she is experiencing this pain. Appeared comfortable after treatment in the ER. Unfortunately when attempts were made to walk her to get her home, she was unable to bear weight and therefore felt to be unsafe to go home. Admitted for further assessment and work-up.
[2021-07-21 10:27] LABS: Ammonia < 9 umol/L (9-30)
--- NOTE | 2021-07-21 10:43 | HMH.PHAINT ---
MEDICATION RECONCILIATION COMPLETED ON PATIENT USING EXTERNAL FILL HISTORY FROM PHARMACY. -MILLICENT PONCE, AYLEEND
--- NOTE | 2021-07-21 10:55 | SW/DCPLANNER ---
Addendum entered by [facility] 07/24/21 10:54: COVID is negative and has been faxed. Addendum entered by [facility] 07/24/21 09:31: This patient has been approved for [facility] today per Ryann. Patient will require an additional COVID swab prior to discharge. Patient stated that her will be transporting her. Addendum entered by [facility] 07/21/21 15:15: Ryann mcleod/ [facility] once medically stable for discharge. I have called and updated patient's and MD. Addendum entered by [facility] 07/21/21 14:10: Ananya mcleod/ [facility] has denied this patient at this time. Addendum entered by [facility] 07/21/21 11:44: is now present in patient's room and concurs with the plan of discharging to placement. prefers [facility] or [facility]. understands that I will need to find a facility in network with patient's insurance. Patient information has been faxed to the following facilities: [facility] in [place], [facility] and [facility] and [facility]. I will continue to follow up with facilities. Original Note: PT/OT evaluated this patient and has recommended placement at this time. I attempted to speak with patient this morning regarding discharge plans. Patient was confused and unable to answer any questions at this time. I also have attempted to contact patient's regarding placement: no answer/VM left at this time.
--- NOTE | 2021-07-21 11:36 | HMH.PTEV ---
Physical Therapy Evaluation Rehab PT IP Evaluation Start: 07/21/21 07:13 Freq: ONCE Status: Active Protocol: Document 07/21/21 11:25 [facility] (Rec: 07/21/21 11:36 [facility] [id number]) Subjective/History History History Patient is a 61 year old female admitted to [facility] secondary to COPD exacerbations. Per patient, she previously was independent with transfer but required a wheelchair for locomotion. Her is required for assistance with all ADL's. Subjective Subjective I just have a lot of pain in my legs right now. Rehab PT IP Eval Objective Appearance Patient Behavior Fatigued,Confused Patient Orientation Person,Birthday Difficulty following instructions mild Speech Pattern Delayed Ambulation Patient Able to Ambulate No Balance Ability to Arise Unable Sitting Balance Leans or slides in chair Dynamic Sitting Balance Ability Fair Dynamic Standing Balance Ability Fair Transfers Bed Transfer Ability Moderate x 2 (50% assist) ROM All Extremities PT ROM Status WFL MMT RLE PT MMT ABN Abnormal MMT Grade 3+/5 LLE PT MMT ABN Abnormal MMT Grade 3+/5 Rehab PT IP prob,goals,plan Problems Date of Evaluation: 07/21/21 PT IP Problems Bed Mobility,Transfers,Gait, Balance,Self care,Safety Rehab Potential Rehab Potential Fair Plan PT Intervention Plan Bed Mobility,Transfers,Gait, Balance,Self care,Safety, Therapeutic Exercise PT Plan Frequency BID Duration LOS Discharge Goals Bed Transfer Ability Minimal x 2 (25% assist) Sit to Stand Chair Transfer Ability Minimal x 2 (25% assist) Ambulation Assistive Device Rolling Walker Discharge Plan PT Discharge Plan Patient would benefit from continuing skilled PT services for LOS to address safety/ functional concerns until found medically stable to return home. G -code Required No Eval Complexity Eval Charge Codes 19354 - High Complexity PHYSICIAN CERTIFICATION: I certify the specified therapy services for Destiny
[2021-07-21 14:54] LABS: ABG Base Excess -0.7 mmol/L (-2.4-2.3); ABG HCO3 24.7 mmhg (22.0-26.0); ABG Oxygen Saturation 93 % (90-100); ABG PCO2 44.3 mmhg (35.0-45.0); ABG PH 7.36 mmol/L (7.35-7.45); ABG PO2 61.1 mmhg (80-100); ABG TCO2 26.1 mmhg (23-27)
[2021-07-21 14:58] LABS: Allen's Test ACCEPTABLE; Oxygen ROOM AIR %; Source R RADIAL
[2021-07-21 18:32] LABS: Chloride 105 mmol/L (98-107); Potassium 3.7 mmoL/L (3.5-5.1); Sodium 138 mmol/L (136-145)
[2021-07-21 18:35] LABS: Anion Gap 9.7 mEq/L (5-15); Blood Urea Nitrogen 29 mg/dl (7-17); Calcium 7.9 mg/dl (8.4-10.2); Carbon Dioxide 27 mmol/L (22.0-30.0); Creatinine Clearance Estimated 20 mL/min (50-200); Estimated Glomerular Filt Rate 25 ml/min (>60); GFR (African American) 30 ML/MIN (>60); Glucose 100 mg/dl (74-100)
[2021-07-22] VITALS (9 sets, daily range): BP systolic 94–115; BP diastolic 35–78; PULSE 64–78; RESP 18–20; TEMP 36.8–36.9; O2SAT 91–99; BMI 56.2
[2021-07-22 07:16] LABS: Basophils % 0.6 % (0.1-2.0); Eosinophils % 0.4 % (0.1-12.0); Hematocrit 33.9 % (37.0-47.0); Lymphocytes # 1.5 K/mm3 (0.7-4.5); Lymphocytes % 24.9 % (10-50); Mean Corpuscular HGB Conc 32.3 g/dL (31.8-35.4); Mean Corpuscular Volume 95.9 fl (81-99); Mean Platelet Volume 8.4 fl (7.4-10.4); Monocytes # 0.4 K/mm3 (0.1-1.0); Monocytes % 6.7 % (1.7-9.3); Neutrophils # 4.1 K/mm3 (1.8-7.8); Neutrophils % 67.3 % (37.0-80.0); Platelet Count 190 K/mm3 (142-424); Red Blood Count 3.53 M/mm3 (4.20-5.40); Red Cell Distribution Width 13.5 % (11.5-17.5); White Blood Count 6.1 K/mm3 (4.8-10.8)
[2021-07-22 07:19] LABS: Chloride 107 mmol/L (98-107); Sodium 137 mmol/L (136-145)
[2021-07-22 07:20] LABS: Potassium 3.7 mmoL/L (3.5-5.1)
[2021-07-22 07:22] LABS: Alanine Aminotransferase 15 U/L (12-78); Albumin Level 2.9 g/dl (3.5-5.0); Albumin/Globulin Ratio 1.1 (1.1-1.8); Alkaline Phosphatase 151 U/L (38-126); Anion Gap 7.7 mEq/L (5-15); Aspartate Amino Transferase 27 U/L (14-36); Bilirubin,Total 0.5 mg/dl (0.2-1.3); Blood Urea Nitrogen 30 mg/dl (7-17); Calcium 7.6 mg/dl (8.4-10.2); Carbon Dioxide 26 mmol/L (22.0-30.0); Creatinine Clearance Estimated 20 mL/min (50-200); Estimated Glomerular Filt Rate 25 ml/min (>60); GFR (African American) 30 ML/MIN (>60); Globulin 2.7 g/dL (1.3-3.2); Glucose 90 mg/dl (74-100); Total Protein,Serum 5.6 g/dl (6.3-8.2)
[2021-07-22 07:23] LABS: Magnesium 1.6 mg/dl (1.6-2.3)
--- NOTE | 2021-07-22 08:41 | HMH.ACPN2 ---
Internal Medicine - PN: Subj *Date: 07/22/21 *Time: 08:41 Interval history: Overnight patient did well. Vital signs were normal. This morning she is awake, recognizes me. Alert, responds to commands. Reports that she continues to have right-sided hip pain. Exam Vital signs and Labs for Last 24 Hours: Temp Pulse Resp BP Pulse Ox 98.3 F 73 20 94/35 L 91 L 07/22/21 08:00 07/22/21 08:00 07/22/21 08:00 07/22/21 08:00 07/22/21 08:00 Laboratory Results - last 24 hr 07/21/21 10:00: Ammonia < 9 L 07/21/21 12:28: Specimen Source R radial, O2 % Room air, ABG pH 7.36, ABG pCO2 44.3, ABG pO2 61.1 L, ABG HCO3 24.7, ABG Total CO2 26.1, ABG O2 Saturation 93, ABG Base Excess -0.7, Allan Test Acceptable 07/21/21 18:20: Sodium 138, Potassium 3.7, Chloride 105, Carbon Dioxide 27, Anion Gap 9.7, BUN 29 H, Creatinine 2.00 H, Estimated Creat Clear 20, Estimated GFR 25 L, Est GFR ( Amer) 30 L, Glucose 100, Calcium 7.9 L 07/22/21 06:55: WBC 6.1, RBC 3.53 L, Hgb 11.0 L, Hct 33.9 L, MCV 95.9, MCH 31.0, MCHC 32.3, RDW 13.5, Plt Count 190, MPV 8.4, Neut % (Auto) 67.3, Lymph % (Auto) 24.9, Sherman % (Auto) 6.7, Eos % (Auto) 0.4, Baso % (Auto) 0.6, Neut # (Auto) 4.1, Lymph # (Auto) 1.5, Sherman # (Auto) 0.4, Eos # (Auto) 0.0, Baso # (Auto) 0.0 07/22/21 06:55: Sodium 137, Potassium 3.7, Chloride 107, Carbon Dioxide 26, Anion Gap 7.7, BUN 30 H, Creatinine 2.00 H, Estimated Creat Clear 20, Estimated GFR 25 L, Est GFR ( Amer) 30 L, Glucose 90, Calcium 7.6 L, Magnesium 1.6, Total Bilirubin 0.5, AST 27, ALT 15 D, Alkaline Phosphatase 151 H, Total Protein 5.6 L, Albumin 2.9 L D, Globulin 2.7, Albumin/Globulin Ratio 1.1 I & O for Last 24 hours: Intake & Output 07/19/21 07/20/21 07/21/21 07/22/21 11:59 11:59 11:59 11:59 Intake Total 240 / 240 762 / 762 Output Total 775 / 775 1100 / 1100 Balance -535 / -535 -338 / -338 Weight 287 lb 4 oz 286 lb 3.2 oz Narrative: Alert. Oriented x2. Facial nerves intact. Oropharynx clear. Heart rate regular with previously noted systolic murmur. Lung santos are clear but poor air entry secondary to her morbid obesity which limits her exam and complicates her care. Pérez catheter draining clear yellow urine. 2+ ankle edema which is improved over yesterday's exam. Assessment and Plan (1) Acute kidney injury superimposed on chronic kidney disease Status: Acute Category: Medical Code(s): N17.9 - Acute kidney failure, unspecified; N18.9 - Chronic kidney disease, unspecified (2) Acute worsening of stage 3 chronic kidney disease Status: Acute Category: Medical Code(s): N18.30 - Chronic kidney disease, stage 3 unspecified (3) Edema Status: Acute Category: Medical Code(s): R60.9 - Edema, unspecified (4) Class 3 obesity Status: Chronic Category: Medical Code(s): E66.9 - Obesity, unspecified (5) Weakness Status: Acute Category: Medical Code(s): R53.1 - Weakness - Assessment and plan all Dx Assessment and Plan for all problems:: 1. Creatinine is stabilized. This seems to be her baseline. 2. Edema. Multifactorial secondary to sedentary lifestyle, obesity, possible diastolic heart failure, ejection fraction is hyperdynamic. 3. Orthopedic pain, no evidence of fracture. Arthritis and obesity make this dramatically worse. Agree with need for long-term care placement.
--- NOTE | 2021-07-22 18:35 | PC.NURSE ---
MORE ALERT TODAY. ABLE TO MAKE NEEDS KNOWN TO STAFF AND ANSWER QUESTIONS APPROPRIATELY. DESAT NOTED THIS AM O2 APPLIED AT [facility].
[2021-07-23] VITALS (9 sets, daily range): BP systolic 117–138; BP diastolic 58–68; PULSE 63–87; RESP 15–19; TEMP 36.7–37.6; O2SAT 95–99; BMI 56.7
--- NOTE | 2021-07-23 08:58 | HMH.ACPN2 ---
Internal Medicine - PN: Subj *Date: 07/23/21 *Time: 08:58 Interval history: Patient is much more alert and oriented over the last 24 hours. I wonder if this has to do with her stopping her psych medication such as trazodone, Abilify and BuSpar. She feels better, her IV came out yesterday and she is refused blood draws and IVs restick this morning. She is able to eat and drink well. Exam Vital signs and Labs for Last 24 Hours: Temp Pulse Resp BP Pulse Ox 98.4 F 71 15 117/58 L 98 07/23/21 03:48 07/23/21 08:09 07/23/21 03:48 07/23/21 03:48 07/23/21 08:09 I & O for Last 24 hours: Intake & Output 07/20/21 07/21/21 07/22/21 07/23/21 11:59 11:59 11:59 11:59 Intake Total 240 / 240 762 / 762 720 / 720 Output Total 775 / 775 1100 / 1100 301 / 301 Balance -535 / -535 -338 / -338 419 / 419 Weight 287 lb 4 oz 286 lb 3.2 oz 288 lb 14.4 oz Narrative: Alert, oriented x1. Little fuzzy about the date and the actual name of the hospital. Much more conversant than yesterday. Still globally very weak. Heart rate regular. Lungs are clear, abdomen soft but her morbid obesity limits accurate examination. Distal edema is at baseline. Pérez catheter draining clear yellow urine. Assessment and Plan (1) Acute kidney injury superimposed on chronic kidney disease Status: Acute Category: Medical Code(s): N17.9 - Acute kidney failure, unspecified; N18.9 - Chronic kidney disease, unspecified (2) Acute worsening of stage 3 chronic kidney disease Status: Acute Category: Medical Code(s): N18.30 - Chronic kidney disease, stage 3 unspecified (3) Edema Status: Acute Category: Medical Code(s): R60.9 - Edema, unspecified (4) Class 3 obesity Status: Chronic Category: Medical Code(s): E66.9 - Obesity, unspecified (5) Weakness Status: Acute Category: Medical Code(s): R53.1 - Weakness - Assessment and plan all Dx Assessment and Plan for all problems:: Labs were stable yesterday. Continue supportive care. Restart Abilify cautiously and hold her other medications. Hold her blood pressure medicine today given her relatively low pressures. [facility] if precertification and bed availability is okay for tomorrow.
[2021-07-24 00:05] VITALS: PULSE 81; PULSE 83
[2021-07-24 04:00] VITALS: BP 135/84; PULSE 84; RESP 16; TEMP 37.2; O2SAT 93
[2021-07-24 05:00] VITALS: BMI 43.6
[2021-07-24 06:19] VITALS: PULSE 79; PULSE 81
[2021-07-24 08:00] VITALS: BP 116/53; PULSE 85; RESP 18; TEMP 36.6; O2SAT 98
--- NOTE | 2021-07-24 08:56 | HMH.DCSUM ---
General - General Admission date:: 07/21/21 Discharge date: 07/24/21 HPI HPI: 61-year-old female with history of obesity, COPD, chronic back pain, chronic knee pain presenting to the ED with pain in her right leg. Work-up initially relatively unremarkable other than significant edema on exam. She was given 1 g of Tylenol for pain, 30 mg intramuscular Toradol, 10 mg oral Decadron x-ray with no acute fracture or dislocation, patient does have tricompartmental osteoarthritis of the right knee which is likely why she is experiencing this pain. Appeared comfortable after treatment in the ER. Unfortunately when attempts were made to walk her to get her home, she was unable to bear weight and therefore felt to be unsafe to go home. Admitted for further assessment and work-up. On exam this morning, she states that she has been having a hard time getting around at home. Has been falling regularly. Has had increased swelling over the past several weeks in her legs. States that she is been having a hard time getting to the bathroom and having accidents with incontinence at home. Lives with her who helps care for her. Is somnolent on exam this morning wakes answers questions but easily falls back to sleep. Has 3+ edema in her lower extremities. Complains of orthopnea. Hospital Course Hospital Course: Patient was admitted to hospital. Toradol and Decadron shots were given in the ER which seemed to help her pain over the next 24 hours. Work-up for causes of somnolence and metabolic causes of falls was essentially unrevealing with stable metabolic changes-she has chronic kidney disease stage IIIb with baseline creatinine of 2.0 which remained the same throughout her hospitalization. Chronic anemia was also noted but no worsening over baseline. She is on a host of psychiatric medicines at home including gabapentin, trazodone and Abilify, these were initially held and this seemed to improve her situation regarding cognitive status and cooperation with physical therapy. Patient had been on verapamil at home more so for kidney function help rather than blood pressure this was held during the hospitalization and will not be continued on discharge because of relatively low blood pressure. Her Abilify was restarted a couple of nights ago and this has seemed to go well for her. We have continued to keep her Pérez catheter in because of her fall risk and ongoing incontinence and need for skin care around her perineal and leg area. PT evaluated her and felt that she would be a good candidate for a short-term skilled care facility for strengthening and work on her ADL functioning. She is agreeable to this and her is able to transport her there today. Please note that her complicating factors include morbid obesity. She also has significant psychiatric disease with anxiety, bipolar disorder, major depression with multiple treatment resistant episodes as well as what appears to be baseline cognitive impairment of uncertain etiology. She and her are very nice people but they have very limited functional skills and moved to the [facility] from [facility] in search of cheaper rent. They live out in the [facility] and a small rental house with very limited social support structures. [facility] Would recommend follow-up labs in 1 week to reassess CBC and her kidney function. Would recommend bladder training and hopefully discontinued her Pérez catheter in the next week. Objective Vital signs: Temp Pulse Resp BP Pulse Ox 98.9 F 79 16 135/84 93 L 07/24/21 04:00 07/24/21 06:19 07/24/21 04:00 07/24/21 04:00 07/24/21 04:00 no acute distress, morbidly obese - *Routine HEENT Exam Head: Present: normocephalic Eye: Present: EOMI, PERRL ENT: Present: mucous membranes moist - *Routine Neck Exam Present: supple - *Routine Respiratory Exam Pr
[2021-07-24 09:05] LABS: Coronavirus 19, PCR Not Detected (NotDetected); Influenza A, PCR Not Detected (NotDetected); Influenza B, PCR Not Detected (NotDetected)
--- NOTE | 2021-07-25 16:07 | CARE MANAGER ---
Contacted [facility] and they stated patient is doing well. Denies any questions. RIOS Sibley
== END 2021-07-24 11:45 ==
LOC: ER 07-21 00:39 → 2ND 07-21 02:01
PROVIDERS: Admitting Provider Internal Medicine Adolescent Medicine; Emergency Provider Emergency Medicine; PCP Internal Medicine Adolescent Medicine; Visit Provider Internal Medicine Adolescent Medicine
DX: J44.1 Chronic obstructive pulmonary disease with (acute) exacerbation (principal); N18.30 Chronic kidney disease, stage 3 unspecified; N17.9 Acute kidney failure, unspecified; E66.01 Morbid (severe) obesity due to excess calories; Z68.41 Body mass index [BMI] 40.0-44.9, adult; R53.1 Weakness; Z91.19 Patient's noncompliance with other medical treatment and regimen; M17.11 Unilateral primary osteoarthritis, right knee; Z79.899 Other long term (current) drug therapy; R06.02 Shortness of breath
CPT/HCPCS: G0378; 36415; 51702; 71045; 72170; 73552; 73560; 73590; 80048; 80053; 81001; 82140; 82803; 83735; 83880; 85025; 93306; 93970; 94640; 94760; 96372; 97110; 97163; 97166; 97530; 99285; C9803; U0003; U0005

== ENCOUNTER 2021-08-22 15:25 | Observation (INO) | payer MEDICARE, SELFPAY ==
[2021-08-22 15:22] VITALS: BP 110/58; PULSE 81; RESP 18; TEMP 36.8; O2SAT 99; BMI 48.4
--- NOTE | 2021-08-22 15:31 | XR_ITS ---
PROCEDURE INFORMATION: Exam: XR Chest Exam date and time: 08/22/2021 4:24 PM Age: 61 years old Clinical indication: Shortness of breath; Additional info: AMS TECHNIQUE: Imaging protocol: XR of the chest. Views: 1 view. COMPARISON: CR XR CHEST PORTABLE 07/21/2021 1:55 AM FINDINGS: Lungs: Very faint infiltrate noted at the right lung base. Pleural spaces: Unremarkable. No pleural effusion. No pneumothorax. Heart/Mediastinum: Unremarkable. No cardiomegaly. Bones/joints: Unremarkable. IMPRESSION: Faint right lung base infiltrate may represent pneumonia.
--- NOTE | 2021-08-22 15:32 | HMH.EDGENADL ---
ED Disposition Clinical Impression: Weakness Stage II decubitus ulcer Qualifiers: Pressure injury location: buttock Laterality: unspecified laterality Qualified Code(s): L89.302 - Pressure ulcer of unspecified buttock, stage 2 Cellulitis Qualifiers: Site of cellulitis: buttock Qualified Code(s): L03.317 - Cellulitis of buttock Disposition: Admitted as Observation Condition on Discharge: Fair Time of Disposition: 17:18 - Critical Care Critical Care Time: No Attestation: On 08/22/21, the high probability of a clinically significant, sudden or life threatening deterioration of the following system(s) required my full and direct attention, intervention and personal management. The time I documented below is in addition to time spent performing reported procedures but includes the following listed in this critical care notation. Medical Decision Making - Medical Records Medical records reviewed: Yes: I reviewed the patient's medical records. - Harjinder Inquiry Pt receiving controlled substance: No Vital Signs: 08/22/21 15:22 08/22/21 18:24 08/22/21 18:36 Temperature 98.3 F Temperature Source Oral Pulse Rate 86 88 Pulse Rate [Right Radial] 81 Respiratory Rate 18 Blood Pressure 118/64 135/84 Blood Pressure [Right Arm] 110/58 L Blood Pressure Mean [Right Arm] 75 Blood Pressure Source Automatic Cuff Automatic Cuff Blood Pressure Source [Right Arm] Automatic Cuff Blood Pressure Position Sitting Sitting Blood Pressure Position [Right Arm] Sitting 02 Sat by Pulse Oximetry 99 99 99 Oxygen Delivery Method Room Air Room Air - Lab Data Lab Results 08/22/21 15:26: WBC 9.2, RBC 3.28 L, Hgb 10.1 L, Hct 31.3 L, MCV 95.4, MCH 30.7, MCHC 32.2, RDW 13.2, Plt Count 266, MPV 8.5, Neut % (Auto) 79.3, Lymph % (Auto) 14.7, Gooding % (Auto) 5.2, Eos % (Auto) 0.2, Baso % (Auto) 0.6, Neut # (Auto) 7.3, Lymph # (Auto) 1.4, Gooding # (Auto) 0.5, Eos # (Auto) 0.0, Baso # (Auto) 0.1 08/22/21 15:26: Sodium 138, Potassium 4.0, Chloride 112 H, Carbon Dioxide 21 L, Anion Gap 9.0, BUN 37 H, Creatinine 1.60 H, Estimated GFR 33 L, Est GFR ( Amer) 39 L, Glucose 116 H, Calcium 8.4, Total Bilirubin 0.3, AST 24, ALT 16, Alkaline Phosphatase 178 H, Total Protein 5.1 L, Albumin 2.2 L, Globulin 2.9, Albumin/Globulin Ratio 0.8 L, Procalcitonin 0.153 08/22/21 15:31: VBG pH 7.29 L, VBG pCO2 43.3, VBG pO2 133.8 H, VBG HCO3 20.4 L, VBG Total CO2 21.7 L, VBG O2 Saturation 98.5 H, VBG Base Excess -6.2 L 08/22/21 16:24: Lactate 1.4 08/22/21 17:16: SARS-CoV-2 (PCR) Not detected, Influenza A Untype (PCR) Not detected, Influenza Type B (PCR) Not detected Result diagrams: 08/22/21 15:26 08/22/21 15:26 Orders (Tests/Meds): ED MEDICATIONS Generic Name Dose Route Start Last Admin Trade Name Freq PRN Reason Stop Dose Admin Acetaminophen 650 mg 08/22/21 19:43 Acetaminophen 325mg Tab PO 09/21/21 19:42 Q4HP PRN Fever or Mild Pain Ibuprofen 400 mg 08/22/21 19:43 Ibuprofen 400 Mg Tablet PO 09/21/21 19:42 Q6HP PRN Mild Pain Sodium Chloride 10 ml 08/22/21 19:43 Sodium Chloride 0.9% 10ml Flush Syringe IV 09/21/21 17:08 NEEDED PRN Maintain IV Site Discontinued Medications Generic Name Dose Route Start Last Admin Trade Name Freq PRN Reason Stop Dose Admin Sodium Chloride 1,000 mls @ 250 mls/hr 08/22/21 17:15 08/22/21 18:53 Sod Chlor 0.9% 1000ml Bag IV 09/21/21 17:14 250 mls/hr .Q4H CARLY Administration Clindamycin Phosphate 600 mg/ 104 mls @ 100 mls/hr 08/22/21 17:06 08/22/21 18:53 Sodium Chloride IV 08/22/21 18:08 100 mls/hr ONCE ONE Administration Sodium Chloride 10 ml 08/22/21 17:09 Sodium Chloride 0.9% 10ml Flush Syringe IV 09/21/21 17:08 NEEDED PRN Maintain IV Site ORDERS Category Date Time Status Consult to Case Management [CONS] Routine Cons 08/22/21 19:43 Active Basic Metabolic Panel AMLAB Lab 08/23/21 06:00 Ordered Comple
--- NOTE | 2021-08-22 15:44 | SW/DCPLANNER ---
Addendum entered by [place] [id number] 14:36: Ryann has called stating this patient has been approved to discharge to [facility] today. Patient will require a COVID swab prior to discharge. Addendum entered by [facility] 08/25/21 09:36: Per Ryann w/ [facility] auth is still pending for this patient. Addendum entered by [facility] 08/24/21 11:58: Augusta mcleod/ [facility] has called and stated that Jaci SALAS would be here this afternoon to speak with this patient. Augusta is aware that patient is medically stable for discharge pending auth from insurance to go to [facility]. Addendum entered by [facility] 08/24/21 10:12: I spoke with Ryann from [facility] this AM: auth is still pending at this time. Addendum entered by [facility] 08/23/21 13:43: Ryann w/ [facility] has started a precert on this patient. Addendum entered by [facility] 08/23/21 09:50: Per Central Intake this case did meet criteria: assigned worker for the case is Michael Zeng [phone]. Dr Mercado did have discussion with this patient this AM regarding placement at [facility]. Patient is agreeable and information has been faxed. I will follow up with Michael SALAS. Addendum entered by [facility] 08/22/21 16:20: Patient came into ED covered in urine, feces and bedbugs per nursing staff. Patient is unable to care for herself at home. EMS crew stated that calls for EMS to come to home to assist with changing/cleaning patient every other day. However, has not called EMS for past two weeks and due to this patient has not been moved from mattress. Due to deplorable conditions of this patient I have made a report to Central Intake ID#[id number]. I will follow up with ID# once case is reviewed. Original Note: Per Ryann mcleod/ [facility] patient admitted SNF level of care from [facility] on 07/24/21-07/31/21. Ryann stated that patient left w/ prior to being discharged. yRann stated that she would be interested in patient returning to [facility] if needed once evaluated.
[2021-08-22 15:49] LABS: Chloride 112 mmol/L (98-107); Sodium 138 mmol/L (136-145)
[2021-08-22 15:51] LABS: Alanine Aminotransferase 16 U/L (12-78); Aspartate Amino Transferase 24 U/L (14-36); Blood Urea Nitrogen 37 mg/dl (7-17); Estimated Glomerular Filt Rate 33 ml/min (>60); GFR (African American) 39 ML/MIN (>60)
[2021-08-22 15:52] LABS: Albumin Level 2.2 g/dl (3.5-5.0); Albumin/Globulin Ratio 0.8 (1.1-1.8); Alkaline Phosphatase 178 U/L (38-126); Bilirubin,Total 0.3 mg/dl (0.2-1.3); Calcium 8.4 mg/dl (8.4-10.2); Carbon Dioxide 21 mmol/L (22.0-30.0); Globulin 2.9 g/dL (1.3-3.2); Glucose 116 mg/dl (74-100); Total Protein,Serum 5.1 g/dl (6.3-8.2)
[2021-08-22 15:53] LABS: Basophils # 0.1 K/mm3 (0-0.2); Basophils % 0.6 % (0.1-2.0); Eosinophils % 0.2 % (0.1-12.0); Hematocrit 31.3 % (37.0-47.0); Hemoglobin 10.1 g/dL (12.2-16.2); Lymphocytes # 1.4 K/mm3 (0.7-4.5); Lymphocytes % 14.7 % (10-50); Mean Corpuscular HGB Conc 32.2 g/dL (31.8-35.4); Mean Corpuscular Hemoglobin 30.7 pg (27.0-31.2); Mean Corpuscular Volume 95.4 fl (81-99); Mean Platelet Volume 8.5 fl (7.4-10.4); Monocytes # 0.5 K/mm3 (0.1-1.0); Monocytes % 5.2 % (1.7-9.3); Neutrophils # 7.3 K/mm3 (1.8-7.8); Neutrophils % 79.3 % (37.0-80.0); Platelet Count 266 K/mm3 (142-424); Red Blood Count 3.28 M/mm3 (4.20-5.40); Red Cell Distribution Width 13.2 % (11.5-17.5); White Blood Count 9.2 K/mm3 (4.8-10.8)
[2021-08-22 16:19] LABS: Procalcitonin 0.153 ng/mL (0.0-2.0)
--- NOTE | 2021-08-22 16:25 | ECG_ITS ---
APPROVED REPORT Exam: Resting ECG HR:86 bpm ECG Measurements Heart Rate 86 AXES SC 171 P 75 QRSd 96 QRS 64 QT 361 T 80 QTc 404 Conclusion SINUS RHYTHM NORMAL ECG UNCONFIRMED REPORT Electronically signed by : Zachariah Mercado MD 08/23/2021 17:37:46
[2021-08-22 16:40] VITALS: BMI 48.4
--- NOTE | 2021-08-22 16:42 | PC.NURSE ---
late entry: upon pt arrival to ED via EMS pt decontaminated at ED entrance upon first arrival. EMS brought pts mattress with them as they report they were unable to remove pt from the mattress safely. Upon arrival pt had a sheet between her and her mattress, the sheet was stuck to pts skin on her buttocks and tee legs. Pt was covered in feces and urine. Pt had a depends on that was saturated in urine and stool, pt has red rankin on her tee hip/waist areas when depends waistband was. Bed bugs also noted all over pt body, on her clothes and linens. Multiple staff members present to assist with pt decontamination. Upon pt transport to ED stretcher pt given an extensive bed bath. Pt has multiple wounds on her posterior surfaces from the middle of her back down to tee posterior calves. Wounds are in various stages of breakdown. Pt has weeping from wound on RLE. Pt has scratches on her L buttocks, reports she has been scratching at her skin. Pt has bruising noted on posterior surfaces as well along with multiple areas of excoriation. Pictures obtained of wounds with pt verbal consent per louie lilly witnessed by myself. ER MD into room to view pt wounds, also care management staff present to speak with pt. Pt reports to staff she has not gotten out of her bed in approx 2 weeks. Pt states she was unable to get up of bed, reports pain when trying to move. When bathing pt is she is not bed mobile with in BLE, pt is however able to move BUE independently and raise her head and shoulders off of the bed.
[2021-08-22 16:44] LABS: Lactic Acid 1.4 mmol/L (0.7-2.1)
[2021-08-22 16:49] LABS: VBG Base Excess -6.2 mmol/L (-2.4-2.3); VBG HCO3 20.4 mmol/L (23-30); VBG Oxygen Saturation 98.5 % (50-70); VBG PCO2 43.3 mmol/L (35-51); VBG PH 7.29 mmol/L (7.31-7.41); VBG PO2 133.8 mmol/L (28-40); VBG Total CO2 21.7 mmol/L (23-27)
--- NOTE | 2021-08-22 17:08 | PC.NURSE ---
pt at BS, ER MD at BS to speak with pt and .
--- NOTE | 2021-08-22 17:08 | PC.NURSE ---
DEANA PELLETIER speaking with patient and spouse at
--- NOTE | 2021-08-22 17:19 | PC.NURSE ---
paged framing consultant service for ED
--- NOTE | 2021-08-22 17:20 | PC.NURSE ---
Dr. Dubon speaking with Dr. Nunes
[2021-08-22 17:23] LABS: Coronavirus 19, PCR Not Detected (NotDetected); Influenza A, PCR Not Detected (NotDetected); Influenza B, PCR Not Detected (NotDetected)
--- NOTE | 2021-08-22 17:23 | PC.NURSE ---
Spoke to Rosemarie in care management regarding patients admission
[2021-08-22 17:52] VITALS: BMI 54.1
[2021-08-22 18:24] VITALS: BP 118/64; PULSE 86; O2SAT 99
[2021-08-22 18:36] VITALS: BP 135/84; PULSE 88; O2SAT 99
--- NOTE | 2021-08-22 18:46 | PC.NURSE ---
report called to RIOS Schultz, states she will send staff down to transport pt
[2021-08-22 18:55] VITALS: BP 135/84; PULSE 88; RESP 18; TEMP 36.8; O2SAT 99
--- NOTE | 2021-08-22 19:02 | INFXCTL.NOTE ---
Pt arrived to the floor at this time
[2021-08-22 20:00] VITALS: BP 118/59; PULSE 85; RESP 16; TEMP 37.1; O2SAT 93
[2021-08-22 22:43] LABS: Microscopic, Urine URINE MICROSCOPIC (MICROSCOPIC)
[2021-08-22 22:57] LABS: Appearance,Urine CLOUDY (Clear); Bilirubin,Urine Negative (Negative); Blood, Urine Negative (Negative); Color,Urine YELLOW (Yellow); Glucose,Urine (UA) Negative (Negative); Ketones,Urine Negative (Negative); Leukocyte Esterase,Urine TRACE (Negative); Nitrate,Urine Negative (Negative); Protein,Urine Negative (Negative); Specific Gravity, Urine >= 1.030 (1.005-1.030); Urobilinogen,Urine 0.2 EU/dl (0.2)
[2021-08-22 23:07] LABS: Bacteria,Urine 1+ /lpf; Barbiturates Screen,Urine Negative ng/ml (<200); RBC,Urine Occasional #/hpf (0-3)
[2021-08-22 23:08] LABS: Amphetamine/Metha Screen,Urine Negative ng/ml (<1000); Benzodiazepines Screen,Urine Negative ng/ml (<200)
[2021-08-22 23:09] LABS: Cannabinoid Screen,Urine Negative ng/ml (<50); Cocaine Screen,Urine Negative ng/ml (<300)
[2021-08-22 23:10] LABS: Methadone Screen,Urine Negative ng/ml (<300)
[2021-08-22 23:11] LABS: Opiate Screen,Urine Negative ng/ml (<300); Phencyclidine Screen,Urine Negative ng/ml (<25)
--- NOTE | 2021-08-22 23:16 | PC.NURSE ---
Patient unaware of home medications, unable to complete medication reconciliation at this time.
[2021-08-23 04:00] VITALS: BP 112/64; PULSE 74; RESP 17; TEMP 36.2; O2SAT 98
[2021-08-23 04:59] VITALS: BMI 54.1
--- NOTE | 2021-08-23 05:49 | PC.NURSE ---
Patient has rested well this shift. No acute problems. Pérez catheter placed this shift. Consultations ordered for nutrition and PT wound care. Pressure relieving dressings applied to buttox, bilateral posterior thighs, and pubic area, tolerated well. Staff performed hibaclens bath at 1900 last night, tolerated well. Continuing to reposition patient every 2 hours. Call light within reach and working properly.
[2021-08-23 06:26] LABS: Basophils % 0.3 % (0.1-2.0); Eosinophils % 0.5 % (0.1-12.0); Hematocrit 29.8 % (37.0-47.0); Hemoglobin 9.6 g/dL (12.2-16.2); Lymphocytes # 1.5 K/mm3 (0.7-4.5); Lymphocytes % 17.7 % (10-50); Mean Corpuscular HGB Conc 32.1 g/dL (31.8-35.4); Mean Corpuscular Hemoglobin 30.6 pg (27.0-31.2); Mean Corpuscular Volume 95.5 fl (81-99); Monocytes # 0.5 K/mm3 (0.1-1.0); Neutrophils # 6.2 K/mm3 (1.8-7.8); Neutrophils % 75.5 % (37.0-80.0); Platelet Count 273 K/mm3 (142-424); Red Blood Count 3.12 M/mm3 (4.20-5.40); Red Cell Distribution Width 13.2 % (11.5-17.5); White Blood Count 8.2 K/mm3 (4.8-10.8)
[2021-08-23 06:34] LABS: Anion Gap 8.6 mEq/L (5-15); Blood Urea Nitrogen 37 mg/dl (7-17); Calcium 8.1 mg/dl (8.4-10.2); Carbon Dioxide 22 mmol/L (22.0-30.0); Chloride 113 mmol/L (98-107); Creatinine Clearance Estimated 27 mL/min (50-200); Estimated Glomerular Filt Rate 33 ml/min (>60); GFR (African American) 39 ML/MIN (>60); Glucose 118 mg/dl (74-100); Potassium 3.6 mmoL/L (3.5-5.1); Sodium 140 mmol/L (136-145)
[2021-08-23 08:00] VITALS: BP 109/56; PULSE 75; RESP 18; TEMP 36.6; O2SAT 96; O2SAT 99
--- NOTE | 2021-08-23 08:47 | HMH.HP ---
*Admission Date: 08/22/21 *Chief complaint: Immobility/back/buttock wounds/psychiatric disease *History of present illness: 61-year-old female who started seeing our practice in the fall 2020, when she and her moved here from [facility] to obtain a house with cheaper rent. She and her have a long history of psychosocial difficulties, they both have a mild degree of cognitive impairment/intellectual disability and anxiety disorder and Ms. Diaz has been diagnosed with bipolar disease with depression. They also struggle with medical problems including obesity, poor self-care activities and Ms. Diaz in particular has problems with arthritis and chronic pain issues. She was admitted here last month for dehydration and immobility issues, was transferred to the [facility] [place] for [place], and she stayed there for 7 days before she demanded to be discharged home. She did not complete her physical therapy course at that facility. When she arrived home she essentially has been in bed for the past 2 weeks. She stools and urinates on herself in bed. Her is either unable or unwilling to clean her, and he has called EMS multiple times to come to the house and help get her out of bed to be cleaned. Home health agencies have been contacted multiple times to my office but because of a combination of service problems and insurance issues the only agency that was willing to look at her case was would go but they have not been able to enroll her. The comes to my office multiple times weekly to discuss her situation but has not been able to bring her to the office for a variety of psychosocial and patient body habitus reasons. Patient finally called EMS yesterday, and EMS found her to be lying in a pool/puddle of her own stool and urine. They were unable to get her out of the bed because she was literally stuck to her bed clothes and they had to wheel her out into the yard and with irrigation with water finally got the sheets and bed close off of her body and were able to transferred her to the ER. In the ER she was found to have significant wounds in her back and buttocks. Pérez catheter was placed. Labs were surprisingly normal, and she was admitted for further evaluation, wound care, antibiotics for wound issues and placement discussion. [facility] History I have reviewed the patient's past medical history: Yes Medical History: Reports:: Chronic Obstructive Pulmonary Disease (COPD), Hyperlipidemia, Hypertension Denies:: Cancer, Diabetes Mellitus Type 1, Diabetes Mellitus Type 2, MRSA *Have you ever received a pneumonia vaccine?: Yes *Have you received a flu vaccine this season?: Yes Other Medical History: Reports: Arthritis Other Surgeries: Yes: Cholecystectomy, Amputation: No Fractures: No - *Social History Smoking Status: Current every day smoker Tobacco Type: cigarettes # Packs/Day (cigarettes): 1 Alcohol Intake: never *Occupational Status:: retired Housing: house Household Members: spouse *Travel in the last 8 weeks: None Family Hx:: No significant family history Review of Systems - Review of Systems Review of systems:: pertinent systems reviewed and negative unless documented below - *Neurologic Reports weakness, Denies dizziness, Denies headache(s), Denies numbness Meds Home Medications Medication Instructions Recorded Confirmed Type ARIPiprazole [Aripiprazole] 10 mg pe PO DAILY 01/26/21 07/21/21 History Omeprazole [Omeprazole 40mg 40 mg PO DAILY 01/26/21 07/21/21 History Capsule] levETIRAcetam [Levetiracetam] 500 mg PO DAILY 01/26/21 07/21/21 History Furosemide [Furosemide 20mg Tab*] 20 mg PO DAILY 07/21/21 07/21/21 History Allergies Allergy/AdvReac Type Severity Reaction Status Date / Time Penicillins Allergy Verified 01/26/21 19:10 Exam Vital signs and Labs for Last 24 Hours: Temp Pulse Resp BP Pulse Ox 97.9 F 75 18 109/56 L 99
--- NOTE | 2021-08-23 09:54 | HMH.OTEV ---
OT Inpatient Evaluation Rehab OT IP Evaluation Start: 08/23/21 08:45 Freq: ONCE Status: Complete Protocol: Document 08/23/21 09:44 NIELS (Rec: 08/23/21 09:54 NIELS [id number]) Rehab OT IP Assessment Subjective History 61-year-old female who started seeing our practice in the fall 2020, when she and her moved here from [facility] to obtain a house with cheaper rent. She and her have a long history of psychosocial difficulties, they both have a mild degree of cognitive impairment/intellectual disability and anxiety disorder and Ms. Diaz has been diagnosed with bipolar disease with depression. They also struggle with medical problems including obesity, poor self-care activities and Ms. Diaz in particular has problems with arthritis and chronic pain issues. She was admitted here last month for dehydration and immobility issues, was transferred to the [facility] [place] for rehab, and she stayed there for 7 days before she demanded to be discharged home. She did not complete her physical therapy course at that facility. When she arrived home she essentially has been in bed for the past 2 weeks. She stools and urinates on herself in bed. Her is either unable or unwilling to clean her, and he has called EMS multiple times to come to the house and help get her out of bed to be cleaned. Home health agencies have been contacted multiple times to my office but because of a combination of service
[2021-08-23 10:00] VITALS: BMI 54.1
--- NOTE | 2021-08-23 10:25 | HMH.PHAVTE ---
[facility] Pharmacy VTE Monitoring - Patient Demographics Admission date: 08/22/21 Report Date: 08/23/21 Time: 10:25 Allergies/Adverse Reactions: Patient Allergies Penicillins Allergy (Verified 01/26/21 19:10) Height: 1.57 m Weight: 133.4 kg Patient Problems: Current Active Problems Osteoarthritis (Acute) Class 3 obesity (Chronic) Weakness (Chronic) Stage II decubitus ulcer (Acute) Cellulitis (Acute) - VTE Risk Labs: VTE Related Lab Results Hgb 9.6 g/dL (12.2-16.2) L 08/23/21 06:01 Hct 29.8 % (37.0-47.0) L 08/23/21 06:01 Plt Count 273 K/mm3 (142-424) 08/23/21 06:01 BUN 37 mg/dl (7-17) H 08/23/21 06:01 Creatinine 1.60 mg/dl (0.52-1.04) H 08/23/21 06:01 Estimated Creat Clear 27 mL/min (50-200) 08/23/21 06:01 VTE Score: 5 VTE Risk Level: Low Risk - Prophylaxis VTE Prophylaxis Ordered?: Yes Types of VTE Prophylaxis: TEDS Knee High Location of Applied Device: Bilateral Lower Extremeties
--- NOTE | 2021-08-23 12:06 | HMH.PTEV ---
Physical Therapy Evaluation Rehab PT IP Evaluation Start: 08/23/21 08:45 Freq: ONCE Status: Active Protocol: Document 08/23/21 12:02 MICHELJANINA (Rec: 08/23/21 12:06 PHOJEREMIAH [id number]) Subjective/History History History 61 yowf adm to [facility] with weakness, multiple wounds, and cellulitis. She reports she lives with significant other at home with no steps to enter and has previously been able to ambulate with a walker. Subjective Subjective Pt c/o pain in R hip with movement. Baseline appears to be poor historian. Rehab PT IP Eval Objective Appearance Patient Behavior Appropriate Patient Orientation Person,Place,Time Difficulty following instructions none Speech Pattern Clear Ambulation Patient Able to Ambulate No Balance Ability to Arise Able, uses arms to help Sitting Balance Steady, safe Standing Balance Unsteady Dynamic Sitting Balance Ability Fair Dynamic Standing Balance Ability Poor Transfers Bed Transfer Ability Moderate x 1 (50% assist) Chair Transfer Ability Total/Dependent (100%) Sit to Stand Bed Transfer Ability Maximum x 2 (75% assist) Sit to Stand Chair Transfer Ability Maximum x 2 (75% assist) Rehab PT IP prob,goals,plan Problems Date of Evaluation: 08/23/21 PT IP Problems Bed Mobility,Transfers,Gait, Balance,Self care Rehab Potential Rehab Potential Fair Plan PT Intervention Plan Bed Mobility,Transfers,Gait, Self care,Therapeutic Exercise PT Plan Frequency BID Duration LOS Discharge Goals Bed Transfer Ability Minimal x 2 (25% assist) Sit to Stand Chair Transfer Ability Maximum x 1 (75% assist) Discharge Plan PT Discharge Plan Pt is currently most appropriate for rehab placement once medically stable. G -code Required No Eval Complexity Eval Charge Codes 94132 - High Complexity PHYSICIAN CERTIFICATION: I certify the specified therapy services for Destiny Diaz are required, authorized, and reviewed every 30 days.
--- NOTE | 2021-08-23 12:09 | HMH.PTWOUND ---
Rehab Inpt Wound Evaluation Rehab IP Wound Evaluation Start: 08/23/21 05:26 Freq: ONCE Status: Active Protocol: Document 08/23/21 12:06 PHOJEREMIAH (Rec: 08/23/21 12:09 PHORNE [id number]) Rehab PT Wound Assessment Subjective Subjective 61 yowf adm to [facility] with weakness, multiple wounds, and cellulitis. She reports she lives with significant other at home with no steps to enter and has previously been able to ambulate with a walker. Wound Right Posterior Thigh Wound Type cellulitis Is This a Chronic Wound Yes Wound Staging Unstageable Query Text:Stage I - Unbroken, red skin, no blanching. Stage II - Skin broken, superficial skin loss involving epidermis alone or also dermis. Partial loss of skin layers. Stage III - Pressure area involves epidermis, dermis and subcutaneous tissue, full thickness skin loss. Stage IV - Pressure area involves epidermis, subcutaneous tissue, bone and other supportive tissue. Full thickness skin loss with extensive destruction of underlying tissue and structures. Wound Bed Appearance Yellow Percentage of Slough (%) 100 Wound Margins Description Indistinct Surrounding Tissue Appearance Bright Red Edema Appearance Open Sores,Red Wound Drainage Description Purulent Drainage Amount Small Drainage Odor Foul Odor Dressing Status Dry & Intact Primary Dressing Composite Dressing Change Patient Tolerance Tolerated Well Plan/Recommendation Comment sharp, excisional debridement may be necessary at a later time, will follow at a distance and debride in possible. Nsg to continue dressing changes as currently applied. Eval Complexity Eval Charge Codes 35312 - High Complexity PHYSICIAN CERTIFICATION: I certify the specified therapy services for Destiny Diaz are required, authorized, and reviewed every 30 days.
--- NOTE | 2021-08-23 12:59 | DIET.NUTRFU ---
RD consulted secondary to low rafat scale, multiple areas of skin breakdown. patient is on cardiac diet, poor po intake. Increased protein needs to promote healing. Started ensure even though it is calorie dense it will provide protein. She refused to try the boost breeze for less calories. Patient does not seem to have the desire to improve overall health she had candy bars and soda at bedside and wanted a grilled cheese for lunch. Reviewed and provided handout for high protein foods
[2021-08-23 16:00] VITALS: BP 127/65; PULSE 86; RESP 18; TEMP 37.2; O2SAT 100
--- NOTE | 2021-08-23 16:45 | PC.NURSE ---
PT IS AOX4, ABLE TO MAKE NEEDS KNOWN TO STAFF, SHE SPENT MOST OF THE AFTERNOON UP TO CHAIR AND TOLERATED WELL. REQUIRES LINK LIFT FOR TRANSFER TO BED AND CHAIR. ROMERO CATH REMAINS IN PLACE, SHE WAS MEDICATED WITH OWN TYLENOL ONCE WITH GOOD EFFECTIVENESS, SHE HAS NOT REQUIRED O2 SUPPORT THIS SHIFT. SHE HAS MULTIPLE SKIN ISSUES THAT REQUIRE DRESSINGS AND POSITION CHANGES. WOUND CARE WAS CONSULTED TODAY AND APPLIED DRESSINGS.
--- NOTE | 2021-08-23 18:50 | PC.NURSE ---
Pt is alert and oriented x4, spent most of the afternoon up to the chair per lift. Wound care consult and dressings applied to multiple ulcerations. Pt voices her desire to go home.
[2021-08-23 20:00] VITALS: BP 117/60; PULSE 94; RESP 18; TEMP 36.7; O2SAT 95; O2SAT 98
--- NOTE | 2021-08-24 01:58 | PC.NURSE ---
Patient has rested well this shift. Staff gave hibaclens bath, patient tolerated fairly. Gave PRN medication per JUN. Dressings were changed due to being soiled. Call light within reach and patient turned on side.
[2021-08-24 04:42] VITALS: BP 100/61; PULSE 78; RESP 22; TEMP 36.9; O2SAT 99
[2021-08-24 04:43] VITALS: BMI 54.1
--- NOTE | 2021-08-24 04:43 | PC.NURSE ---
Patient resting well this shift. Continues oxygen saturation >95 on room air. Bilateral lower extremity edema noted earlier shift. No acute changes. Call light within reach and working appropriately.
[2021-08-24 07:01] LABS: Basophils # 0.1 K/mm3 (0-0.2); Basophils % 0.7 % (0.1-2.0); Eosinophils % 0.2 % (0.1-12.0); Hematocrit 29.6 % (37.0-47.0); Hemoglobin 9.4 g/dL (12.2-16.2); Lymphocytes # 1.6 K/mm3 (0.7-4.5); Lymphocytes % 23.2 % (10-50); Mean Corpuscular HGB Conc 31.8 g/dL (31.8-35.4); Mean Corpuscular Hemoglobin 30.7 pg (27.0-31.2); Mean Corpuscular Volume 96.5 fl (81-99); Monocytes # 0.4 K/mm3 (0.1-1.0); Monocytes % 6.3 % (1.7-9.3); Neutrophils # 4.8 K/mm3 (1.8-7.8); Neutrophils % 69.6 % (37.0-80.0); Platelet Count 279 K/mm3 (142-424); Red Blood Count 3.07 M/mm3 (4.20-5.40); Red Cell Distribution Width 13.4 % (11.5-17.5); White Blood Count 6.9 K/mm3 (4.8-10.8)
[2021-08-24 07:04] LABS: Anion Gap 7.4 mEq/L (5-15); Blood Urea Nitrogen 34 mg/dl (7-17); Calcium 8.2 mg/dl (8.4-10.2); Carbon Dioxide 23 mmol/L (22.0-30.0); Chloride 113 mmol/L (98-107); Creatinine Clearance Estimated 26 mL/min (50-200); Estimated Glomerular Filt Rate 30 ml/min (>60); GFR (African American) 37 ML/MIN (>60); Glucose 98 mg/dl (74-100); Potassium 3.4 mmoL/L (3.5-5.1); Sodium 140 mmol/L (136-145)
[2021-08-24 07:20] VITALS: RESP 20; O2SAT 97
[2021-08-24 08:00] VITALS: BP 110/65; PULSE 83; RESP 15; TEMP 36.6; O2SAT 100
--- NOTE | 2021-08-24 11:03 | DIET.NUTRFU ---
reviewed meal intake at 50%, also bringing snacks in at bedside table. She plans to go to rehab at time of discharge, they can help patient continue to meet protein needs to promote healing.
--- NOTE | 2021-08-24 13:45 | HMH.ACPN2 ---
Internal Medicine - PN: Subj *Date: 08/24/21 *Time: 13:45 Interval history: Patient has had a very smooth last day in the hospital. She is slept fairly well at night. PT evaluation noted. Patient has been up in a chair. Wound care has started. Appreciate PT and nursing care for her wounds. Had a long talk with her today about possible disposition. Exam Vital signs and Labs for Last 24 Hours: Temp Pulse Resp BP Pulse Ox 97.9 F 83 15 110/65 100 08/24/21 08:00 08/24/21 08:00 08/24/21 08:00 08/24/21 08:00 08/24/21 08:00 Laboratory Results - last 24 hr 08/24/21 06:41: WBC 6.9, RBC 3.07 L, Hgb 9.4 L, Hct 29.6 L, MCV 96.5, MCH 30.7, MCHC 31.8, RDW 13.4, Plt Count 279, MPV 9.0, Neut % (Auto) 69.6, Lymph % (Auto) 23.2, Wilkin % (Auto) 6.3, Eos % (Auto) 0.2, Baso % (Auto) 0.7, Neut # (Auto) 4.8, Lymph # (Auto) 1.6, Wilkin # (Auto) 0.4, Eos # (Auto) 0.0, Baso # (Auto) 0.1 08/24/21 06:41: Sodium 140, Potassium 3.4 L, Chloride 113 H, Carbon Dioxide 23, Anion Gap 7.4, BUN 34 H, Creatinine 1.70 H, Estimated Creat Clear 26, Estimated GFR 30 L, Est GFR ( Amer) 37 L, Glucose 98, Calcium 8.2 L I & O for Last 24 hours: Intake & Output 08/22/21 08/23/21 08/24/21 08/25/21 11:59 11:59 11:59 11:59 Intake Total 240 / 240 360 / 360 Output Total 500 / 500 Balance 240 / 240 -140 / -140 Weight 294 lb 1.546 oz 294 lb 1.546 oz Narrative: Patient is talkative, alert. Gives me a lot more details of her previous home environment before she and her moved to [facility]. Lungs have good air movement. Heart rate regular. Abdomen soft. Wound care pictures reviewed from nursing staff. Distal edema related to obesity noted. Pérez catheter draining clear yellow urine. Assessment and Plan (1) Cellulitis Status: Acute Qualifiers: Site of cellulitis: buttock Qualified Code(s): L03.317 - Cellulitis of buttock Category: Medical Code(s): L03.90 - Cellulitis, unspecified (2) Stage II decubitus ulcer Status: Acute Qualifiers: Pressure injury location: buttock Laterality: unspecified laterality Qualified Code(s): L89.302 - Pressure ulcer of unspecified buttock, stage 2 Category: Medical Code(s): L89.92 - Pressure ulcer of unspecified site, stage 2 (3) Weakness Status: Chronic Category: Medical Code(s): R53.1 - Weakness (4) Osteoarthritis Status: Acute Qualifiers: Osteoarthritis location: knee Osteoarthritis type: primary Laterality: right Qualified Code(s): M17.11 - Unilateral primary osteoarthritis, right knee Category: Medical Code(s): M19.90 - Unspecified osteoarthritis, unspecified site (5) Class 3 obesity Status: Chronic Category: Medical Code(s): E66.9 - Obesity, unspecified - Assessment and plan all Dx Assessment and Plan for all problems:: Long talk with patient about her living arrangements. I do not think it is ethically or medically sound to discharge her home in the care of her who has demonstrated that he is unable to care for her. APS is involved. In talking with her it sounds like she and her were it at an assisted living situation her personal fdc in [facility]-she cannot remember the name but remembers that they were forced to leave when her brought home a cat. They still have the cat and he is reluctant to give the cat up. She is ready to be discharged to skilled care from my standpoint whenever insurance precertification has been done.
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
[2021-08-24 16:00] VITALS: BP 121/69; PULSE 79; RESP 20; TEMP 36.6; O2SAT 92
[2021-08-24 19:40] VITALS: BP 123/56; PULSE 90; RESP 20; TEMP 36.7; O2SAT 98
[2021-08-24 23:58] VITALS: BP 111/60; PULSE 87; RESP 21; TEMP 37.1; O2SAT 95
--- NOTE | 2021-08-25 03:12 | PC.NURSE ---
Staff gave hibaclens bath, patient tolerated fairly. Dressings changed during bath. Pérez cath in place. Patient A&0 x4. No complaints voiced at this time. Patient awaiting on insurance to approve placement at [place]. S
[2021-08-25 04:00] VITALS: BP 121/61; PULSE 76; RESP 21; TEMP 36.8; O2SAT 100
[2021-08-25 05:00] VITALS: BMI 54.1
--- NOTE | 2021-08-25 07:39 | HMH.DCSUM ---
General - General Admission date:: 08/22/21 Discharge date: 08/25/21 HPI HPI: 61-year-old female who started seeing our practice in the fall 2020, when she and her moved here from [facility] to obtain a house with cheaper rent. She and her have a long history of psychosocial difficulties, they both have a mild degree of cognitive impairment/intellectual disability and anxiety disorder and Ms. Diaz has been diagnosed with bipolar disease with depression. They also struggle with medical problems including obesity, poor self-care activities and Ms. Diaz in particular has problems with arthritis and chronic pain issues. She was admitted here last month for dehydration and immobility issues, was transferred to the [facility] for rehab, and she stayed there for 7 days before she demanded to be discharged home. She did not complete her physical therapy course at that facility. When she arrived home she essentially has been in bed for the past 2 weeks. She stools and urinates on herself in bed. Her is either unable or unwilling to clean her, and he has called EMS multiple times to come to the house and help get her out of bed to be cleaned. Home health agencies have been contacted multiple times to my office but because of a combination of service problems and insurance issues the only agency that was willing to look at her case was would go but they have not been able to enroll her. The comes to my office multiple times weekly to discuss her situation but has not been able to bring her to the office for a variety of psychosocial and patient body habitus reasons. Patient finally called EMS yesterday, and EMS found her to be lying in a pool/puddle of her own stool and urine. They were unable to get her out of the bed because she was literally stuck to her bed clothes and they had to wheel her out into the yard and with irrigation with water finally got the sheets and bed close off of her body and were able to transferred her to the ER. In the ER she was found to have significant wounds in her back and buttocks. Pérez catheter was placed. Labs were surprisingly normal, and she was admitted for further evaluation, wound care, antibiotics for wound issues and placement discussion. Hospital Course Hospital Course: 61-year-old female with obesity, debility, depression who has been at home in bed for extended period of time and become debilitated and weak. Unable to ambulate. Requiring Manoj lift to transfer. Admitted with significant decubitus wounds and edema. Initially received a single dose of clindamycin but has not had any fever, elevation white count, or other markers concerning for significant infection. Wound nurse assisting with decubitus wound management. Due to debility and nursing needs, patient is not safe to go home. Had previously been discharged to [facility] at her last hospitalization. Has been referred and accepted to the same facility for further management of her acute on chronic conditions. At this time she is medically stable for discharge for continued wound care and physical therapy. Diagnosed with cellulitis however in the setting of normal white cell count, low procalcitonin, no fever, and no clinical worsening with holding antibiotics during admission, did not discharge on antibiotics. Would have low threshold to add if symptoms change. 3+ edema, blood pressure normal. No diuretics during admission as patient is in no respiratory distress. Consider diuretics in the fpc/outpatient setting Examined on day of discharge. Medically stable for discharge to skilled care. Recommend PT/OT/speech eval and treatment Objective Vital signs: Temp Pulse Resp BP Pulse Ox 98.3 F 76 21 121/61 100 08/25/21 04:00 08/25/21 04:00 08/25/21 04:00 08/25/21 04:00 08/25/21 04:00 Narrative: - Constitutional
[2021-08-25 08:00] VITALS: BP 115/63; PULSE 82; RESP 20; TEMP 36.4; O2SAT 99
--- NOTE | 2021-08-25 10:34 | PC.NURSE ---
Pt is RA 86%
--- NOTE | 2021-08-25 11:58 | PC.NURSE ---
rounded on patient this morning. patient stating she has been pleased with stay. no concerns or questions in regards to medications or plan of care. awaiting approval for rehab.
[2021-08-25 12:00] VITALS: BP 122/63; PULSE 84; RESP 20; TEMP 36.9; O2SAT 100
[2021-08-25 14:58] LABS: Influenza A, PCR Not Detected (NotDetected); Influenza B, PCR Not Detected (NotDetected)
[2021-08-25 14:59] LABS: Coronavirus 19, PCR Not Detected (NotDetected)
--- NOTE | 2021-08-25 15:34 | PC.NURSE ---
Spoke with Des office we are keeping the dia in place for wound care healing.
[2021-08-25 16:00] VITALS: BP 114/57; PULSE 90; RESP 22; TEMP 36.9; O2SAT 97
--- NOTE | 2021-08-25 17:22 | PC.NURSE ---
Spoke with Marquita NATION at [facility]. I was on hold for over an hour attempting to give report.
--- NOTE | 2021-08-25 17:24 | PC.NURSE ---
Called EMS for transport.
--- NOTE | 2021-08-25 19:45 | PC.NURSE ---
Pt had a very uneventful day. She was transfered out to [facility]. She complained of a RODRIGUEZ twice which was resolved by po tylenol. She stayed A/Ox4, RA, and no issues. She was d/c'd with a dia per Markie. Her was contacted and told were she was an was given directions.
--- NOTE | 2021-08-28 15:07 | CARE MANAGER ---
Spoke with nurse at [facility], she states that patient is doing well and is up to the activity room watching tv.
== END 2021-08-25 18:11 ==
LOC: ER 15:26 → 2ND 17:49
PROVIDERS: Internal Medicine Adolescent Medicine; Admitting Provider Emergency Medicine; Emergency Provider Emergency Medicine; PCP Internal Medicine Adolescent Medicine; Visit Provider Internal Medicine Adolescent Medicine
DX: L89.312 Pressure ulcer of right buttock, stage 2 (principal); L03.317 Cellulitis of buttock; N18.30 Chronic kidney disease, stage 3 unspecified; M17.11 Unilateral primary osteoarthritis, right knee; J44.9 Chronic obstructive pulmonary disease, unspecified; I12.9 Hypertensive chronic kidney disease with stage 1 through stage 4 chronic kidney disease, or unspecified chronic kidney disease; E78.5 Hyperlipidemia, unspecified; F17.210 Nicotine dependence, cigarettes, uncomplicated; Z20.822 Contact with and (suspected) exposure to COVID-19; R53.1 Weakness; Z79.899 Other long term (current) drug therapy; Z59.1 Inadequate housing; Z63.8 Other specified problems related to primary support group; T74.01XA Adult neglect or abandonment, confirmed, initial encounter; Z74.2 Need for assistance at home and no other household member able to render care
CPT/HCPCS: G0378; 36415; 71045; 80048; 80053; 80305; 81001; 82803; 83605; 84145; 85025; 87040; 93005; 97110; 97163; 97165; 97530; 99285; C9803; U0003; U0005

== ENCOUNTER 2022-04-13 12:18 | Emergency (ER) | payer MEDICARE, MEDICAID, SELFPAY ==
[2022-04-13 12:21] VITALS: BP 135/88; PULSE 90; RESP 20; TEMP 36.6; O2SAT 98; BMI 52.7
--- NOTE | 2022-04-13 13:15 | XR_ITS ---
FINAL REPORT CLINICAL HISTORY: Fall, distal radius pain PT UNABLE TO SUPINATE HAND FINDINGS: RIGHT FOREARM 2 views were obtained. There is a nondisplaced fracture of the distal ulna. There are mild degenerative changes. There is soft tissue swelling. IMPRESSION: Nondisplaced fracture of the distal ulna. Reviewed, Interpreted and Dictated by Leavr Shah III, MD Transcribed by Becka Sevilla Authenticated and . [facility]
--- NOTE | 2022-04-13 13:15 | XR_ITS ---
FINAL REPORT CLINICAL HISTORY: fall, lateral elbow tendderness FINDINGS: RIGHT ELBOW 2 views were obtained. There is no acute fracture or dislocation. The joint spaces are intact. There is no soft tissue abnormality. IMPRESSION: No acute bony abnormality. Reviewed, Interpreted and Dictated by Levar Shah III, MD Transcribed by Becka Sevilla Authenticated and [facility]
--- NOTE | 2022-04-13 13:15 | XR_ITS ---
FINAL REPORT CLINICAL HISTORY: fall, tendernessdistal humerus COMPARISON: Chest radiograph dated July 21, 2021 FINDINGS: RIGHT HUMERUS 2 views were obtained. There is deformity of the proximal humerus felt to represent a chronic fracture. There is no definite acute fracture and no dislocation. There are mild degenerative changes. There is no soft tissue abnormality. IMPRESSION: No acute bony abnormality. Reviewed, Interpreted and Dictated by Levar Shah III, MD Transcribed by Becka Sevilla Authenticated and [facility]
--- NOTE | 2022-04-13 13:15 | XR_ITS ---
FINAL REPORT CLINICAL HISTORY: Fall, distal radius pain COMPARISON: March 15, 2021 FINDINGS: RIGHT WRIST Three views demonstrate a mildly displaced fracture of the distal ulna. The fracture line extends to the distal radioulnar joint. The visualized joint spaces are normally aligned. There are mild degenerative changes. There is soft tissue swelling. IMPRESSION: Mildly displaced fracture of the distal ulna. Reviewed, Interpreted and Dictated by Levar Shah III, MD Transcribed by Becka Sevilla Authenticated and [facility]
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
[2022-04-13 13:57] VITALS: BMI 52.7
[2022-04-13 15:30] VITALS: BP 123/78; PULSE 89; RESP 18; TEMP 36.8; O2SAT 98
== END 2022-04-13 15:30 | disposition home or self-care (01) ==
PROVIDERS: Emergency Provider Emergency Medicine; PCP Internal Medicine Adolescent Medicine
DX: M25.531 Pain in right wrist (principal); S52.601A Unspecified fracture of lower end of right ulna, initial encounter for closed fracture; W05.0XXA Fall from non-moving wheelchair, initial encounter
CPT/HCPCS: 29125; 73060; 73070; 73090; 73110; 96372; 99284

== ENCOUNTER → 2022-05-08 15:08 | Outpatient (CLI) | payer MEDICARE, MEDICAID, SELFPAY ==
--- NOTE | 2022-05-08 15:12 | XR_ITS ---
FINAL REPORT CLINICAL HISTORY: wrist fracture, f/u out of splint. COMPARISON: 04/13/2022 FINDINGS: Right wrist Three views were obtained. There is an oblique fracture of the distal ulna with mild displacement, similar to previous. There is generalized osteopenia. There is widening of the scapholunate space suggesting ligamentous injury. IMPRESSION: Stable appearance of the wrist. Reviewed, Interpreted and Dictated by Dwaine Cabrera MD Transcribed by Elodia Valdes Authenticated and [facility]
== END ==
PROVIDERS: PCP Internal Medicine Adolescent Medicine; Visit Provider Physician Assistant Surgical
DX: S52.601A Unspecified fracture of lower end of right ulna, initial encounter for closed fracture (principal)
CPT/HCPCS: 73110

== ENCOUNTER 2022-05-08 16:00 | Outpatient (RCR) | payer MEDICARE, SELFPAY | END 2022-05-08 17:00 | disposition home or self-care (01) | LOC: OT 16:00 | PROVIDERS: Visit Provider Orthopaedic Surgery | DX: S52.601A Unspecified fracture of lower end of right ulna, initial encounter for closed fracture (principal) ==

== ENCOUNTER 2022-08-06 13:19 | Observation (INO) | payer MEDICARE, MEDICAID, SELFPAY ==
[2022-08-06] VITALS (18 sets, daily range): BP systolic 63–136; BP diastolic 35–110; PULSE 61–80; RESP 16–20; TEMP 36.3–36.9; O2SAT 83–100; BMI 60.3; BMI 55.0
--- NOTE | 2022-08-06 13:49 | ECG_ITS ---
APPROVED REPORT Exam: Resting ECG HR:80 bpm ECG Measurements Heart Rate 80 AXES CA 176 P 83 QRSd 97 QRS 57 QT 350 T 61 QTc 386 Conclusion SINUS RHYTHM NORMAL ECG UNCONFIRMED REPORT Electronically signed by : Zachariah Mercado MD 08/06/2022 19:42:46
[2022-08-06 14:14] LABS: Microscopic,Cath URINE MICROSCOPIC (MICROSCOPIC)
--- NOTE | 2022-08-06 14:33 | PC.NURSE ---
Attempted to place ultrasound guided PIV without success. Patient has poor vascularities to BUE. Attending notified, and primary RN notified.
[2022-08-06 14:51] LABS: Appearance,Urine/Cath CLEAR (Clear); Bilirubin,Cath Negative (Negative); Blood, Urine/Cath Negative (Negative); Color,Urine/Cath YELLOW (Yellow); Glucose,Urine/Cath (UA) Negative (Negative); Ketones,Urine/Cath Negative (Negative); Leukocyte Esterase,Cath TRACE (Negative); Nitrate,Cath POSITIVE (Negative); PH,Urine/Cath 5.5 (5.0-8.5); Protein,Urine/Cath TRACE (Negative); Specific Gravity, Urine/Cath 1.025 (1.005-1.030); Urobilinogen,Cath 0.2 EU/dl (0.2)
[2022-08-06 14:52] LABS: Basophils % 0.2 % (0.1-2.0); Eosinophils # 0.5 K/mm3 (0.0-0.4); Eosinophils % 5.9 % (0.1-12.0); Lymphocytes # 1.2 K/mm3 (0.7-4.5); Lymphocytes % 15.5 % (10-50); Mean Corpuscular HGB Conc 28.8 g/dL (31.8-35.4); Mean Corpuscular Volume 97.2 fl (81-99); Mean Platelet Volume 9.2 fl (7.4-10.4); Monocytes # 0.5 K/mm3 (0.1-1.0); Neutrophils # 5.6 K/mm3 (1.8-7.8); Neutrophils % 72.5 % (37.0-80.0); Platelet Count 277 K/mm3 (142-424); Red Blood Count 2.37 M/mm3 (4.20-5.40); Red Cell Distribution Width 17.3 % (11.5-17.5); White Blood Count 7.7 K/mm3 (4.8-10.8)
--- NOTE | 2022-08-06 15:01 | HMH.EDGENADL ---
Discharge Plan Disposition Patient Disposition: Admitted As Inpatient Condition: Fair Prescriptions Prescriptions: No Action trazodone 100 mg tablet 200 mg PO QHS Qty: 60 1RF aripiprazole [Abilify] 20 mg tablet 20 mg PO DAILY Qty: 30 1RF verapamil 120 MG tablet 120 mg PO HS propranolol 20 MG tablet 20 mg PO 1700 duloxetine 60 MG capsule,delayed release(DR/EC) 60 mg PO DAILY multivitamin 1 EACH tablet 1 each PO DAILY ropinirole 1 MG tablet 1 mg PO DAILY sumatriptan succinate 100 MG tablet 100 mg PO NEEDED PRN (Reason: MIGRAINES) venlafaxine 150 MG capsule,extended release 24hr 150 mg PO DAILY potassium chloride 10 MEQ tablet extended release 20 meq PO DAILY magnesium oxide 400 MG tablet 400 mg PO DAILY buspirone 30 MG tablet 30 mg PO BID topiramate 50 MG tablet 50 mg PO BID levetiracetam 500 MG tablet 500 mg PO DAILY omeprazole 40 MG capsule,delayed release(DR/EC) 40 mg PO DAILY furosemide 20 MG tablet 20 mg PO DAILY Referrals Follow up/Referrals: Provider,Referral, MD [Referring] - See instructions Clinical Impressions Clinical Impression: Acute anemia, UTI (urinary tract infection), Falls, Bedbug bite, SHAYLA (acute kidney injury) Discharge ED Provider: Carson Bangura General Adult HPI General Chief complaint: Fall Stated complaint: fall Time Seen by Provider: 08/06/22 13:38 Mode of Arrival: EMS Source of Information: Patient Limitations: No Limitations Description of Symptoms (Recalled from ER Triage Doc. by RN): pt states she fell out of bed last night at 10pm and has been in the floor all night, denies LOC or hitting her head, denies chest pain or shortness of breath, denies any pain, just states her body is sore, states she rolls out of bed often History of Present Illness HPI narrative: 62yo F presents to the ER secondary to falling out of bed. Patient rolls out of bed frequently. Reports she fell out of bed last night at approximately 2200. Denies LOC or hitting her head. Denies chest pain or shortness of breath. Related Data Home Medications Medication Instructions Recorded Confirmed levetiracetam 500 mg tablet 500 mg PO DAILY SEIZURES 01/26/21 05/08/22 omeprazole 40 mg capsule,delayed 40 mg PO DAILY GERD 01/26/21 05/08/22 release furosemide 20 mg tablet 20 mg PO DAILY Fluid 07/21/21 05/08/22 buspirone 30 mg tablet 30 mg PO BID MOOD 08/23/21 05/08/22 duloxetine 60 mg capsule,delayed 60 mg PO DAILY MOOD 08/23/21 05/08/22 release magnesium oxide 400 mg (241.3 mg 400 mg PO DAILY Supplement 08/23/21 05/08/22 magnesium) tablet multivitamin 1 each PO DAILY Supplement 08/23/21 05/08/22 potassium chloride 10 mEq 20 meq PO DAILY POTASSIUM 08/23/21 05/08/22 tablet,extended release SUPPLEMENT propranolol 20 mg tablet 20 mg PO 1700 Tremors 08/23/21 05/08/22 ropinirole 1 mg tablet 1 mg PO DAILY RESTLESS LEG SYNDROME 08/23/21 05/08/22 sumatriptan succinate 100 mg tablet 100 mg PO NEEDED PRN MIGRAINES 08/23/21 05/08/22 topiramate 50 mg tablet 50 mg PO BID MIGRAINE 08/23/21 05/08/22 venlafaxine 150 mg 150 mg PO DAILY Depression 08/23/21 05/08/22 capsule,extended release 24 hr verapamil 120 mg tablet 120 mg PO HS BLOOD PRESSURE 08/23/21 05/08/22 Previous Rx's Medication Instructions Recorded aripiprazole 20 mg tablet (Abilify) 20 mg PO DAILY #30 tabs 04/20/22 trazodone 100 mg tablet 200 mg PO QHS #60 tabs 05/31/22 Allergies Allergy/AdvReac Type Severity Reaction Status Date / Time Penicillins Allergy Verified 08/06/22 14:11 [facility] Disclaimer: The information contained in this section may have been updated after the patient was seen, as this information can be updated by other users. Social History Smoking Status: Current every day smoker tobacco type: cigarettes packs per day: 1 second hand exposure: Yes alcohol
[2022-08-06 15:02] LABS: Alanine Aminotransferase 21 U/L (12-78); Albumin Level 2.4 g/dl (3.5-5.0); Albumin/Globulin Ratio 0.6 (1.1-1.8); Alkaline Phosphatase 272 U/L (38-126); Aspartate Amino Transferase 38 U/L (14-36); Bilirubin,Total 0.2 mg/dl (0.2-1.3); Blood Urea Nitrogen 32 mg/dl (7-17); Calcium 7.4 mg/dl (8.4-10.2); Carbon Dioxide 32 mmol/L (22.0-30.0); Chloride 106 mmol/L (98-107); Creatine Kinase 51 U/L (30-135); Creatinine Clearance Estimated 18 mL/min (50-200); Estimated Glomerular Filt Rate 19 ml/min (>60); GFR (African American) 23 ML/MIN (>60); Globulin 3.7 g/dL (1.3-3.2); Glucose 82 mg/dl (74-100); Hemoglobin 6.6 g/dL (12.2-16.2); Sodium 140 mmol/L (136-145); Total Protein,Serum 6.1 g/dl (6.3-8.2)
--- NOTE | 2022-08-06 15:03 | PC.NURSE ---
MD Bangura notified of critical hemoglobin of 6.6, see orders.
[2022-08-06 15:17] LABS: Bacteria,Urine/Cath 1+ /lpf
--- NOTE | 2022-08-06 15:19 | PC.NURSE ---
called care management for admission.
--- NOTE | 2022-08-06 15:20 | PC.NURSE ---
rehab aware of PT/OT consult.
[2022-08-06 15:27] LABS: Coronavirus 19, PCR Not Detected (NotDetected); Influenza A, PCR Not Detected (NotDetected); Influenza B, PCR Not Detected (NotDetected)
--- NOTE | 2022-08-06 15:56 | PC.NURSE ---
called report to Catrachita NATION.
--- NOTE | 2022-08-06 16:01 | PC.NURSE ---
ATTEMPTED TO UPDATE MED LIST ON PT. PT UNABLE TO TELL ME ALL OF HER HOME MEDS AND NO MED LIST AVAILABLE.
--- NOTE | 2022-08-06 16:16 | PC.NURSE ---
arrived to floor by stretcher from ED
--- NOTE | 2022-08-06 17:28 | PC.WOUNDNOTE ---
skin tear noted to the rle open area noted to the left buttock open area noted to lower back
--- NOTE | 2022-08-06 17:30 | EXP.HP ---
History of Present Illness *Admission Date: 08/06/22 *Reason for visit:: fall at home, anemia *History of present illness: pt states she fell out of bed last night at 10pm and has been in the floor all night, denies LOC or hitting her head, denies chest pain or shortness of breath, denies any pain, just states her body is sore, states she rolls out of bed often History of Present Illness HPI narrative: 62yo F presents to the ER secondary to falling out of bed.? Patient rolls out of bed frequently.? Reports she fell out of bed last night at approximately 2200.? Denies LOC or hitting her head.? Denies chest pain or shortness of breath. Above note per ER... Patient has a long history of poor self-care activities. She and her moved here from [facility] for a cheaper rental house about 2 years ago. Since that time they have been in and out of healthcare facilities because of events like the above. Their house is infested with roaches and bedbugs and EMS and home health services have both stopped going for nonemergency reasons because of the cleanliness issues. She and her both have psychological decision making problems. I have recommended multiple times in the past that they moved to a personal chcf but the has declined because of his wish to smoke and to have cats. [facility] Disclaimer: The information contained in this section may have been updated after the patient was seen, as this information can be updated by other users. Medical History (Updated 08/06/22 @ 16:49 by Catrachita Glez) COPD (chronic obstructive pulmonary disease) Seizure disorder Family History (Updated 08/06/22 @ 16:49 by Catrachita Glez) Family history of cancer Social History (Updated 08/06/22 @ 16:49 by Catrachita Glez) Smoking Status: Current every day smoker tobacco type: cigarettes packs per day: 1 second hand exposure: Yes alcohol intake: never counseling given: No substance use type: denies use counseling given: No current occupational status: retired and disabled Travel in the last 8 weeks: None adopted: No caregiver/support person: No foster care: No household members: spouse housing: house marital status: 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; 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 pets and animals: Yes pets and animals: cat(s) Hx Recent Travel: No sexually active: No caffeine: Yes physical activity: none cony/druze: [employer] special cony needs: No working smoke detector in home: Yes fire extinguisher in home: Yes carbon monox detector in home: No firearms in home: No do you feel safe at home: Yes victim of physical abuse: No victim of emotional abuse: No victim of sexual abuse: No would you like helpful sources: No Meds Home Medications and Allergies Home Medications Medication Instructions Recorded Confirmed Type levetiracetam 500 mg tablet 500 mg PO DAILY SEIZURES 01/26/21 05/08/22 History omeprazole 40 mg capsule,delayed 40 mg PO DAILY GERD 01/26/21 05/08/22 History release furosemide 20 mg tablet 20 mg PO DAILY Fluid 07/21/21 05/08/22 History buspirone 30 mg tablet 30 mg PO BID MOOD 08/23/21 05/08/22 History duloxetine 60 mg capsule,delayed 60 mg PO DAILY MOOD 08/23/21 05/08/22 History release magnesium oxide 400 mg (241.3 mg 400 mg PO DAILY Supplement 08/23/21 05/08/22 History magnesium) tablet multivitamin 1 each PO DAILY Supplement 08/23/21 05/08/22 History potassium chloride 10 mEq 20 meq PO DAILY POTASSIUM 08/23/21 05/08/22 History tablet,extended release SUPPLEMENT propranolol 20 mg tablet 20 mg PO 1700 Tremors 08/23/21 05/08/22 History ropinirole 1 mg tablet 1 mg PO DAILY RESTLESS LEG SYNDROME 08/23/21 05/08/22 History sumatriptan succinate 100 mg tablet 100 mg PO NEEDED PRN MIGRAINES 08/23/21 05/08/22 History topiramate 50 mg tablet 50 mg PO BID MIGRAINE 08/23/21 05/08/22 History venlafaxine 150 mg 150
--- NOTE | 2022-08-06 17:47 | PC.NURSE ---
Patient arrived from ER via stretcher. VSS. On 2L O2. Type and screen pending with order to transfuse 2 units PRBC's. Multiple skin issues noted with pictures on chart. Pérez patent. One soft BM. Case management consult ordered for multiple issues identified on screening
--- NOTE | 2022-08-06 18:35 | PC.NURSE ---
Patient informed of Medicare observation rules. Patient states that no one can bring her home meds. Home medications confirmed with spouse via phone using home medication bottles
[2022-08-07] VITALS (16 sets, daily range): BP systolic 87–133; BP diastolic 53–97; PULSE 74–94; RESP 16–22; TEMP 36.6–37.2; O2SAT 2–100; BMI 60.1
[2022-08-07 07:05] LABS: Basophils % 0.2 % (0.1-2.0); Lymphocytes # 1.4 K/mm3 (0.7-4.5); Monocytes # 0.4 K/mm3 (0.1-1.0)
[2022-08-07 07:09] LABS: Eosinophils # 0.7 K/mm3 (0.0-0.4); Hematocrit 27.5 % (37.0-47.0); Hemoglobin 8.4 g/dL (12.2-16.2); Lymphocytes % 21.1 % (10-50); Mean Corpuscular HGB Conc 30.6 g/dL (31.8-35.4); Mean Corpuscular Hemoglobin 27.9 pg (27.0-31.2); Mean Platelet Volume 9.1 fl (7.4-10.4); Monocytes % 6.6 % (1.7-9.3); Neutrophils # 3.9 K/mm3 (1.8-7.8); Neutrophils % 61.1 % (37.0-80.0); Platelet Count 212 K/mm3 (142-424); Red Blood Count 3.02 M/mm3 (4.20-5.40); Red Cell Distribution Width 18.4 % (11.5-17.5); White Blood Count 6.4 K/mm3 (4.8-10.8)
--- NOTE | 2022-08-07 07:26 | HMH.PHAINT1 ---
Pharmacy Intervention Comments: Reconciled patient's home medications using pharmacy fill history and patient interview.
[2022-08-07 08:04] LABS: Chloride 106 mmol/L (98-107); Potassium 4.2 mmoL/L (3.5-5.1); Sodium 140 mmol/L (136-145)
--- NOTE | 2022-08-07 08:05 | EXP.ACUTE.PN ---
Subjective *Date: 08/07/22 *Time: 08:05 Interval history: Patient is alert. Pleasant. States that she feels better. On low-flow oxygen with acceptable saturations and her vital signs are normal. She appears dysthymic but states that she would be willing to go to skilled care if warranted. Medical Exam Vital signs and Labs for Last 24 Hours: Vital Signs Temp Pulse Pulse Resp BP BP Pulse Ox 08/07/22 07:28 98.5 F 86 20 120/54 L 100 08/07/22 05:09 98.9 F 79 16 113/68 94 L 08/07/22 03:45 98.7 F 79 16 118/64 100 08/07/22 02:45 98.5 F 80 16 105/61 L 100 08/07/22 02:30 98.6 F 80 16 122/68 95 08/07/22 02:15 98.6 F 83 16 133/71 96 08/07/22 02:00 98.6 F 80 16 100/64 L 100 08/07/22 01:55 98.6 F 77 16 100/60 L 96 08/07/22 01:50 98.9 F 78 16 119/68 100 08/07/22 01:40 98.8 F 74 16 107/65 L 95 08/07/22 01:24 98 F 77 16 115/56 L 95 08/07/22 00:55 98.9 F 79 16 113/58 L 92 L 08/06/22 23:55 98.3 F 77 16 115/68 94 L 08/06/22 23:40 97.8 F 77 16 112/57 L 100 08/06/22 23:25 98 F 76 16 111/66 94 L 08/06/22 23:10 97.9 F 73 16 99/51 L 91 L 08/06/22 23:05 98.4 F 73 16 99/63 L 93 L 08/06/22 23:00 98 F 74 16 108/57 L 94 L 08/06/22 22:56 97.4 F L 73 16 120/55 L 94 L 08/06/22 22:44 97.9 F 74 16 96 08/06/22 19:52 97.7 F 80 18 98/35 L 83 L 08/06/22 16:40 98.1 F 73 18 136/70 91 L 08/06/22 16:01 74 20 119/56 L 96 08/06/22 15:57 97.9 F 78 18 115/63 08/06/22 15:30 78 18 115/63 100 08/06/22 15:00 76 18 124/67 100 08/06/22 14:44 61 109/73 L 99 08/06/22 14:13 78 18 63/49 L 95 08/06/22 14:01 68 18 130/110 H 89 L 08/06/22 13:30 97.7 F 78 18 118/67 100 Intake and Output 08/06/22 08/07/22 08/07/22 19:59 03:59 11:59 Intake Total 240 / 1490 1000 / 1490 250 / 1490 Output Total 1050 / 2150 900 / 2150 200 / 2150 Balance -810 / -660 100 / -660 50 / -660 Intake: Intake, Oral Amount 240 / 240 Intake, Total IV Amount 750 / 750 0.9 % Sodium Chloride 1000ML 1, 750 / 750 000 ml @ 150 mls/hr IV .[id number] [facility] Rx#:[id number] Intake (Blood Product) Amt 250 / 500 250 / 500 Red Blood Cells Unit 250 / 250 [id number] Red Blood Cells Unit 0 / 250 250 / 250 [id number] Output: Output, Urine Amount 1050 / 2150 900 / 2150 200 / 2150 Other: Number of Voids 0 Number of Unmeasured Voids 0 0 0 Number of Bowel Movements 1 Weight 301 lb 2.423 oz 326 lb 15.128 oz Patient Weight 08/07/22 11:59 Weight 326 lb 15.128 oz Laboratory Results - last 24 hr 08/06/22 13:57: Urine Color Yellow, Urine Appearance Clear, Urine pH 5.5, Ur Specific [place] 1.025, Urine Protein Trace, Urine Glucose (UA) Negative, Urine Ketones Negative, Urine Blood Negative, Urine Nitrate Positive, Urine Bilirubin Negative, Urine Urobilinogen 0.2, Ur Leukocyte Esterase Trace, Urine RBC None, Urine WBC 10-20 A, Ur Squamous Epith Cells 5-10, Urine Bacteria 1+ 08/06/22 14:20: WBC 7.7, RBC 2.37 L, Hgb 6.6 L*, Hct 23.0 L, MCV 97.2, MCH 28.0, MCHC 28.8 L, RDW 17.3, Plt Count 277, MPV 9.2, Neut % (Auto) 72.5, Lymph % (Auto) 15.5, [place] % (Auto) 6.0, Eos % (Auto) 5.9, Baso % (Auto) 0.2, Neut # (Auto) 5.6, Lymph # (Auto) 1.2, [place] # (Auto) 0.5, Eos # (Auto) 0.5 H, Baso # (Auto) 0.0 08/06/22 14:20: Sodium 140, Potassium 4.0, Chloride 106, Carbon Dioxide 32 H, Anion Gap 6.0, BUN 32 H, Creatinine 2.50 H, Estimated Creat Clear 18, Estimated GFR 19 L*, Est GFR ( Amer) 23 L, Glucose 82, Calcium 7.4 L, Total Bilirubin 0.2, AST 38 H, ALT 21, Alkaline Phosphatase 272 H, Total Creatine Kinase 51, Total Protein 6.1 L, Albumin 2.4 L, Globulin 3.7 H, Albumin/Globulin Ratio 0.6 L 08/06/22 14:20: Blood Type Confirm O Positive 08/06/22 15:14: Blood Type O Positive, Antibody Screen Negative, Crossmatch (AHG) See Detail 08/06/22
[2022-08-07 08:07] LABS: Blood Urea Nitrogen 31 mg/dl (7-17); Creatinine Clearance Estimated 19 mL/min (50-200); Estimated Glomerular Filt Rate 21 ml/min (>60); GFR (African American) 26 ML/MIN (>60)
[2022-08-07 08:08] LABS: Anion Gap 5.2 mEq/L (5-15); Calcium 7.1 mg/dl (8.4-10.2); Carbon Dioxide 33 mmol/L (22.0-30.0); Glucose 76 mg/dl (74-100)
--- NOTE | 2022-08-07 08:21 | SW/DCPLANNER ---
Addendum entered by Meghan Swain 08/08/22 07:43: Per [facility] patient has been approved via insurance and can admit today. I have updated MD this AM. Addendum entered by Meghan Swain 08/07/22 10:28: [facility] stated that she can accept this patient and precert will be started. Original Note: Patient has expressed an interest in [facility] level of care once medically stable for discharge. PT/OT will evaluate patient this AM. [facility] information [facility].
--- NOTE | 2022-08-07 08:28 | PC.NURSE ---
Called pts for patients medication list. Left message.
--- NOTE | 2022-08-07 10:01 | HMH.PTEV ---
Physical Therapy Evaluation Rehab PT IP Evaluation Start: 08/07/22 07:57 Freq: ONCE Status: Active Protocol: Document 08/07/22 08:44 PHOJEREMIAH (Rec: 08/07/22 08:57 PHORNE [id number]) Subjective/History History History 62 yowf adm to [facility] with anemia and S/P fall out of bed. No serious acute injuries on presentation, but extremely poor hygiene upon arrival to ED. Pt reports she falls out of bed a lot and has had extremely poor mobility for some time now. She reports she lives with , 2 steps to enter the home, and she uses a walker for ambulation at baseline. She reports she has been unable to ambulate in her home or get up/down her steps to leave the home for some time now. She also presents with several small open soreson extremities and one on her low back. Subjective Subjective Pt c/o feeling weak at this time, but no c/o pain. Rehab PT IP Eval Objective Appearance Patient Behavior Appropriate,Cooperative, Aggressive Patient Orientation Person,Place,Time Speech Pattern Clear Ambulation Patient Able to Ambulate No Balance Ability to Arise Able, uses arms to help Sitting Balance Leans or slides in chair Standing Balance Unsteady Dynamic Sitting Balance Ability Fair Dynamic Standing Balance Ability Poor Transfers Bed Transfer Ability Minimal x 1 (25% assist) Chair Transfer Ability Maximum x 2 (75% assist) Sit to Stand Bed Transfer Ability Maximum x 2 (75% assist) Sit to Stand Chair Transfer Ability Maximum x 2 (75% assist) ROM All Extremities PT ROM Status WFL MMT All Extremities PT MMT ABN Abnormal MMT Grade grossly 3/5 Rehab PT IP prob,goals,plan Problems Date of Evaluation: 08/07/22 PT IP Problems Bed Mobility,Transfers,Gait, Self care,Safety Rehab Potential Rehab Potential Fair Plan PT Intervention Plan Bed Mobility,Transfers,Gait, Self care,Safety,Therapeutic Exercise PT Plan Frequency Daily
--- NOTE | 2022-08-07 10:15 | HMH.OTEV ---
OT Inpatient Evaluation Rehab OT IP Evaluation Start: 08/07/22 07:57 Freq: ONCE Status: Active Protocol: Document 08/07/22 10:06 [email or web address] (Rec: 08/07/22 10:13 [facility] [id number]) Rehab OT IP Assessment Subjective History Pt oriented x 3 on arrival. Pt agreeable to engage in therapy evaluation. Pt was admitted on 08/06/22 due to a fall at home. Prior to being in the hospital, pt lived at home with her . Pt claims she was independent with all ADLs. However, she reports she has not been able to complete self care tasks for ~3 weeks because she has not been feeling well. Her did assist her with IADLs. Pt used a walker during functional transfers. However, after reading ER documentation, pt's information provided is not trustworthy due to the poor living circumstances: Patient has a long history of poor self-care activities. She and her moved here from [facility] for a cheaper rental house about 2 years ago. Since that time they have been in and out of healthcare facilities because of events like the above. Their house is infested with roaches and bedbugs and EMS and home health services have both stopped going for nonemergency reasons because of the cleanliness issues. She and her both have psychological decision making problems. I have recommended multiple times in the past that they moved to a personal assisted but the has declined because of his wish to smoke and to have cats. Pt has a past medical history of:
--- NOTE | 2022-08-07 11:31 | HMH.PTWOUND ---
Rehab Inpt Wound Evaluation Rehab IP Wound Evaluation Start: 08/07/22 07:57 Freq: AM Status: Active Protocol: Document 08/07/22 11:27 PHOFrancineJANINA (Rec: 08/07/22 11:31 PHORNE [id number]) Rehab PT Wound Assessment Subjective Subjective 62 yowf adm to [facility] with anemia and S/P fall out of bed. No serious acute injuries on presentation, but extremely poor hygiene upon arrival to ED. Pt reports she falls out of bed a lot and has had extremely poor mobility for some time now. She reports she lives with , 2 steps to enter the home, and she uses a walker for ambulation at baseline. She reports she has been unable to ambulate in her home or get up/down her steps to leave the home for some time now. She also presents with several small open soreson extremities and one on her low back. Wound Lower Back Wound Type Avulsion Is This a Chronic Wound Yes Wound Length (cm) 0.5 Wound Width (cm) 1.5 Wound Depth (cm) 0.1 Wound Bed Appearance [place] Percentage Granulated (%) 100 Wound Margins Description Well Defined Surrounding Tissue Appearance [place] Primary Dressing Composite Comment polymem 2 x 2 Wound Debridement Amount of Tissue None Removed Dressing Change Patient Tolerance Tolerated Well Plan/Recommendation Comment Multiple small wounds to B UE and LE in various stages of healing that appear to be excoriation related. Low back wound possible from pressure, but more likely shear/avulsion . No debridement necessary at this time. Recommend nsg to dress wounds with non-adherent foam or tegaderm as needed. No need for further PT wound care at this time. Eval Complexity Eval Charge Codes 01302 - Moderate Complexity PHYSICIAN CERTIFICATION: I certify the specified therapy
--- NOTE | 2022-08-07 14:38 | DIET.NUTRFU ---
RD saw patient today after breakfast, consumed 50% for breakfast and 75% for lunch. Patient reports she does not eat barely at all when at home. She lives with under poor health conditions. manager payroll working on placement for rehab. Based on labs patient has CKD stage 3 with GFR at 26. RD was consulted to review renal diet, multiple handouts were provided and reviewed. Patient seemed to be listening but may need further followup at rehab facility in order to practice at home. Currently if diet recall is accurate she is lacking in her nutritional needs. She reports she takes some kind of supplement but she could not recall name, may be a medication instead of supplement she was unsure
--- NOTE | 2022-08-07 16:42 | PC.NURSE ---
Pérez Catheter removed, purewick placed.
[2022-08-08] VITALS: BP 135/72; PULSE 92; RESP 18; TEMP 37; O2SAT 98
[2022-08-08 04:00] VITALS: BP 112/62; PULSE 90; RESP 18; TEMP 37; O2SAT 98; BMI 60.8
[2022-08-08 06:44] LABS: Basophils % 0.3 % (0.1-2.0); Eosinophils # 0.6 K/mm3 (0.0-0.4); Eosinophils % 10.7 % (0.1-12.0); Hemoglobin 7.6 g/dL (12.2-16.2); Lymphocytes # 1.3 K/mm3 (0.7-4.5); Lymphocytes % 24.1 % (10-50); Mean Corpuscular HGB Conc 30.5 g/dL (31.8-35.4); Mean Corpuscular Hemoglobin 27.8 pg (27.0-31.2); Mean Corpuscular Volume 91.1 fl (81-99); Mean Platelet Volume 8.9 fl (7.4-10.4); Monocytes # 0.4 K/mm3 (0.1-1.0); Monocytes % 8.3 % (1.7-9.3); Neutrophils % 56.7 % (37.0-80.0); Platelet Count 192 K/mm3 (142-424); Red Blood Count 2.74 M/mm3 (4.20-5.40); Red Cell Distribution Width 18.4 % (11.5-17.5); White Blood Count 5.3 K/mm3 (4.8-10.8)
[2022-08-08 06:55] LABS: Chloride 110 mmol/L (98-107)
[2022-08-08 06:56] LABS: Potassium 4.4 mmoL/L (3.5-5.1); Sodium 141 mmol/L (136-145)
[2022-08-08 06:58] LABS: Blood Urea Nitrogen 29 mg/dl (7-17); Creatinine Clearance Estimated 23 mL/min (50-200); Estimated Glomerular Filt Rate 27 ml/min (>60); GFR (African American) 32 ML/MIN (>60)
[2022-08-08 06:59] LABS: Anion Gap 4.4 mEq/L (5-15); Carbon Dioxide 31 mmol/L (22.0-30.0); Glucose 89 mg/dl (74-100)
[2022-08-08 07:55] VITALS: BP 138/57; PULSE 90; RESP 18; TEMP 37.3; O2SAT 100
--- NOTE | 2022-08-08 07:59 | EXP.DC.SUM ---
General Admission date:: 08/06/22 Discharge date: 08/08/22 HPI HPI HPI: pt states she fell out of bed last night at 10pm and has been in the floor all night, denies LOC or hitting her head, denies chest pain or shortness of breath, denies any pain, just states her body is sore, states she rolls out of bed often History of Present Illness HPI narrative: 62yo F presents to the ER secondary to falling out of bed.? Patient rolls out of bed frequently.? Reports she fell out of bed last night at approximately 2200.? Denies LOC or hitting her head.? Denies chest pain or shortness of breath. Above note per ER... Patient has a long history of poor self-care activities. She and her moved here from [facility] for a cheaper rental house about 2 years ago. Since that time they have been in and out of healthcare facilities because of events like the above. Their house is infested with roaches and bedbugs and EMS and home health services have both stopped going for nonemergency reasons because of the cleanliness issues. She and her both have psychological decision making problems. I have recommended multiple times in the past that they moved to a personal half-way but the has declined because of his wish to smoke and to have cats. Hospital Course Hospital Course Hospital Course: Patient was admitted to hospital. Found to have anemia related to chronic disease and given 2 packs of red cells. Did well and appropriately responded to transfusion. Over the last couple days with hydration her hemoglobin did slightly decline down to 7.6 but not yet meeting read transfusion criteria. No evidence of bleeding, and I feel that her anemia is from chronic disease and renal disease. I would recommend that she have a CBC and BMP in 4 days at her extended care facility. Found to be significantly weak and PT and OT recommended that she go to a skilled care facility. I think this is also a good idea given the absolute disaster of her home life with her inability to care for self, get out of bed or do even basic personal hygiene. I would like the social services aide at the [facility] to discuss with her going to a personal half-way when she meets her goals of skilled care. I absolutely do not think that it is appropriate for her to go home and live in the dirty and bug infested environment that her has chosen for her and himself. She was also found to have a UTI, E. coli, pansensitive. We will do cefdinir 300 twice daily for 5 days on discharge. Other medications remain the same. She will need PT/OT/dietary/consultations at the extended care facility. Exam Data for Last 24 hours Vital signs and Labs for Last 24 Hours: Temp Pulse Resp BP Pulse Ox 99.1 F 90 18 138/57 L 100 08/08/22 07:55 08/08/22 07:55 08/08/22 07:55 08/08/22 07:55 08/08/22 07:55 Laboratory Results - last 24 hr 08/07/22 06:55: Sodium 140, Potassium 4.2, Chloride 106, Carbon Dioxide 33 H, Anion Gap 5.2, BUN 31 H, Creatinine 2.30 H, Estimated Creat Clear 19, Estimated GFR 21 L, Est GFR ( Amer) 26 L, Glucose 76, Calcium 7.1 L 08/08/22 06:30: WBC 5.3, RBC 2.74 L, Hgb 7.6 L, Hct 25.0 L, MCV 91.1, MCH 27.8, MCHC 30.5 L, RDW 18.4 H, Plt Count 192, MPV 8.9, Neut % (Auto) 56.7, Lymph % (Auto) 24.1, [place] % (Auto) 8.3, Eos % (Auto) 10.7, Baso % (Auto) 0.3, Neut # (Auto) 3.0, Lymph # (Auto) 1.3, [place] # (Auto) 0.4, Eos # (Auto) 0.6 H, Baso # (Auto) 0.0 08/08/22 06:30: Sodium 141, Potassium 4.4, Chloride 110 H, Carbon Dioxide 31 H, Anion Gap 4.4 L, BUN 29 H, Creatinine 1.90 H, Estimated Creat Clear 23, Estimated GFR 27 L, Est GFR ( Amer) 32 L D, Glucose 89, Calcium 7.0 L I & O for Last 24 hours: Intake & Output 08/05/22 08/06/22 08/07/22 08/08/22 11:59 11:59 11:59 11:59 Intake Total 1610 / 1610 1040 / 1040 Output Total 2150 / 2150 600 / 600 Balance -540 / -540 440 / 440 Weight 326 lb 15.128 oz 330 lb 11.094 oz Microbiology
--- NOTE | 2022-08-08 10:28 | PC.NURSE ---
Called report to [facility], spoke to RIOS Wilson
--- NOTE | 2022-08-08 11:35 | PC.NURSE ---
EMS here for patient transport to [facility]
--- NOTE | 2022-08-08 11:45 | PC.NURSE ---
Called patient spouse, provided patient update, provided number to [facility].
--- NOTE | 2022-08-09 13:39 | CARE MANAGER ---
Contacted [facility] to follow up on patient following discharge from the hospital. They report she is doing well. RIOS Sibley
== END 2022-08-08 11:46 | DRG 812 ==
LOC: ER 15:22 → 2ND 15:49
PROVIDERS: Admitting Provider Internal Medicine Adolescent Medicine; Emergency Provider Family Medicine; PCP Internal Medicine Adolescent Medicine; Visit Provider Internal Medicine Adolescent Medicine
DX: D53.9 Nutritional anemia, unspecified (principal); N17.9 Acute kidney failure, unspecified; N39.0 Urinary tract infection, site not specified; F17.210 Nicotine dependence, cigarettes, uncomplicated; G43.909 Migraine, unspecified, not intractable, without status migrainosus; I10 Essential (primary) hypertension; R29.6 Repeated falls; W06.XXXA Fall from bed, initial encounter; Y92.013 Bedroom of single-family (private) house as the place of occurrence of the external cause; J44.9 Chronic obstructive pulmonary disease, unspecified; Z59.19 Other inadequate housing; T14.8XXA Other injury of unspecified body region, initial encounter; W57.XXXA Bitten or stung by nonvenomous insect and other nonvenomous arthropods, initial encounter; Z59.819 Housing instability, housed unspecified; Z79.899 Other long term (current) drug therapy
CPT/HCPCS: G0378; 36415; 51702; 80048; 80053; 81001; 82550; 85025; 86850; 87086; 87088; 87186; 93005; 97162; 97166; 97530; 99291; C9803; J0696; P9016; U0003; U0005

== ENCOUNTER 2023-04-17 12:43 | Outpatient (CLI) | payer MEDICARE, MEDICAID, SELFPAY ==
--- NOTE | 2023-04-17 13:12 | ECG_ITS ---
APPROVED REPORT Exam: Resting ECG HR:69 bpm ECG Measurements Heart Rate 69 AXES MS 173 P 51 QRSd 97 QRS 127 QT 407 T 26 QTc 426 Conclusion SINUS RHYTHM INDETERMINATE AXIS ABNORMAL ECG UNCONFIRMED REPORT Electronically signed by : Zachariah Mercado MD 04/18/2023 20:33:16
== END 2023-04-17 23:59 ==
LOC: RT 12:46
PROVIDERS: PCP Internal Medicine Adolescent Medicine; Visit Provider Internal Medicine Adolescent Medicine
DX: E11.69 Type 2 diabetes mellitus with other specified complication (principal)
CPT/HCPCS: 93005

== ENCOUNTER 2023-05-07 16:12 | Emergency (ER) | payer MEDICARE, MEDICAID, SELFPAY ==
[2023-05-07 16:31] VITALS: BP 143/79; PULSE 76; RESP 20; TEMP 36.9; O2SAT 97; BMI 51.9
--- NOTE | 2023-05-07 16:41 | XR_ITS ---
PROCEDURE INFORMATION: Exam: XR Chest Exam date and time: 05/07/2023 4:42 PM Age: 63 years old Clinical indication: Shortness of breath; Additional info: SOA TECHNIQUE: Imaging protocol: Radiologic exam of the chest. Views: 1 view. COMPARISON: CR XR CHEST PORTABLE 08/22/2021 4:24 PM FINDINGS: Lungs: No evidence of acute pulmonary disease or infiltrates Pleural spaces: No large effusion or pneumothorax. Heart/Mediastinum: No evidence of mediastinal widening or cardiac silhouette enlargement; the mediastinum and heart appear within normal limits for contour and size. Vasculature: There are calcifications of the aortic arch. Bones/joints: No evidence of acute osseous abnormalities within the visualized portions of the thoracic spine and ribs. Osseous structures appear appropriate for patient age. IMPRESSION: No dense parenchymal consolidation, pleural effusion, or pneumothorax.
--- NOTE | 2023-05-07 16:48 | ED_ITS ---
Discharge Plan Disposition Patient Disposition: Home, Self-Care Prescriptions Prescriptions: New prednisone 20 mg tablet 40 mg PO DAILY 5 Days Qty: 10 0RF cefdinir 300 mg capsule 300 mg PO BID 5 Days Qty: 10 0RF No Action verapamil 120 MG tablet 120 mg PO HS propranolol 20 MG tablet 20 mg PO 1700 duloxetine 60 MG capsule,delayed release(DR/EC) 60 mg PO DAILY multivitamin 1 EACH tablet 1 each PO DAILY ropinirole 1 MG tablet 1 mg PO DAILY sumatriptan succinate 100 MG tablet 100 mg PO NEEDED PRN (Reason: MIGRAINES) venlafaxine 150 MG capsule,extended release 24hr 150 mg PO DAILY potassium chloride 10 MEQ tablet extended release 10 meq PO DAILY magnesium oxide 400 MG tablet 400 mg PO DAILY buspirone 30 MG tablet 30 mg PO DAILY topiramate 50 MG tablet 50 mg PO BID trazodone 100 mg tablet 200 mg PO HS Patient Comments: TAKE TWO TABLETS BY MOUTH EVERY DAY AT BEDTIME MAY CAUSE DROWSINESS aripiprazole 5 mg tablet 5 mg PO DAILY Patient Comments: TAKE ONE TABLET BY MOUTH EVERY DAY cefdinir 300 mg capsule 300 mg PO BID Qty: 10 0RF levetiracetam 500 MG tablet 500 mg PO DAILY omeprazole 40 MG capsule,delayed release(DR/EC) 40 mg PO DAILY furosemide 20 MG tablet 20 mg PO DAILY Referrals Follow up/Referrals: Zachariah Mercado MD [Primary Care Provider] - See instructions Activity Restrictions/Add. Instructions Additional Instructions/Restrictions: Call your family doctor to establish care for this visit to the emergency department and schedule follow-up within 48 hours to ensure improvement. If you have any worsening of your condition or any other concerning signs or symptoms, return to the emergency department or your primary care doctor for further evaluation. Prednisone and cefdinir as prescribed for the next 5 days. Clinical Impressions Clinical Impression: CHF exacerbation, Acute exacerbation of chronic obstructive pulmonary disease Discharge ED Provider: Richmond Barkley General Chief Complaint: Shortness of Breath/Dyspnea Stated Complaint: SOA Time Seen by Provider: 05/07/23 16:17 Mode of Arrival: Wheelchair Source of Information: Patient and Spouse Limitations: No Limitations Description of Symptoms (Recalled from ER Triage Doc. by RN): Patient reports her home health nurse told her to come to the ED because her O2 sat was low. Patient reports increased SOA, denies fever, N/V/D. History of Present Illness HPI narrative: 63-year-old female history of hypertension, hyperlipidemia, obesity COPD not on home oxygen, CHF presenting with shortness of breath. Patient states that she had a home health visit today. Home health states that she had water on her lungs, worsening in the past couple of days, so told her to come to the emergency department. Patient does not wear oxygen at home, reportedly, oxygen saturation was low at home with home health as well. Patient states she been having worsening PND/orthopnea, but denies cough, nausea or vomiting, fevers or chills, lower extremity edema, productive cough, chest pain, or any other concerns. Related Data Home Medications Medication Instructions Recorded Confirmed levetiracetam 500 mg tablet 500 mg PO DAILY SEIZURES 01/26/21 08/23/22 omeprazole 40 mg capsule,delayed 40 mg PO DAILY Acid reflux 01/26/21 08/23/22 release furosemide 20 mg tablet 20 mg PO DAILY Fluid 07/21/21 08/23/22 buspirone 30 mg tablet 30 mg PO DAILY MOOD 08/23/21 08/23/22 duloxetine 60 mg capsule,delayed 60 mg PO DAILY MOOD 08/23/21 08/23/22 release magnesium oxide 400 mg (241.3 mg 400 mg PO DAILY Supplement 08/23/21 08/23/22 magnesium) tablet multivitamin 1 each PO DAILY Supplement 08/23/21 08/23/22 potassium chloride 10 mEq 10 meq PO DAILY POTASSIUM 08/23/21 08/23/22 tablet,extended release SUPPLEMENT propranolol 20 mg tablet 20 mg PO 1700 Tremors 08/23/21 08/23/22 ropinirole 1 mg tablet 1 mg PO DAILY RESTLESS LEG SYNDROME 08/23/21 08/23/22 sumatriptan succinate 100 mg tablet 100 mg PO NEEDED PRN MIGRAINES 08/23/21 08/23/22 topiramate 50 mg tablet 50 mg PO BID MIGRAINE 08/23/21 08/23/22 venlafaxine 150 mg 150 mg PO DAILY Migraine 08/23/21 08/23/22 capsule,extended release 24 hr verapamil 120 mg tablet 120 mg PO HS High blood pressure 08/23/21 08/23/22 aripiprazole 5 mg tablet 5 mg PO DAILY Mood 08/07/22 08/23/22 trazodone 100 mg tablet 200 mg PO HS Mood 08/07/22 08/23/22 Previous Rx's Medication Instructions Recorded cefdinir 300 mg capsule 300 mg PO BID #10 caps 08/08/22 cefdinir 300 mg capsule 300 mg PO BID 5 days #10 caps 05/07/23 prednisone 20 mg tablet 40 mg PO DAILY 5 days #10 tabs 05/07/23 Allergies Allergy/AdvReac Type Severity Reaction Status Date / Time Penicillins Allergy Verified 08/06/22 14:[address] [facility] Disclaimer: The information contained in this section may have been updated after the patient was seen, as this information can be updated by other users. Medical History (Updated 05/07/23 @ 18:20 by Richmond Barkley MD) COPD (chronic obstructive pulmonary disease) Seizure disorder Family History (Updated 08/06/22 @ 16:49 by Catrachita Glez) Other Family history of cancer Social History (Updated 08/06/22 @ 16:49 by Catrachita Glez) Smoking Status: Current every day smoker tobacco type: cigarettes packs per day: 1 second hand exposure: Yes alcohol intake: never counseling given: No substance use type: denies use counseling given: No current occupational status: retired and disabled Travel in the last 8 weeks: None adopted: No caregiver/support person: No foster care: No household members: spouse housing: house marital status: 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; 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 pets and animals: Yes pets and animals: cat(s) Hx Recent Travel: No sexually active: No caffeine: Yes physical activity: none cony/congregational: Muslim special cony needs: No working smoke detector in home: Yes fire extinguisher in home: Yes carbon monox detector in home: No firearms in home: No do you feel safe at home: Yes victim of physical abuse: No victim of emotional abuse: No victim of sexual abuse: No would you like helpful sources: No ROS Obtained: Yes All systems reviewed & no additional complaints except as do cumented Physical Exam General General appearance: alert Neck Neck exam: Present trachea midline Chest Chest inspection: Present normal inspection and symmetric chest wall rise Respiratory Respiratory exam: Present wheezes (diffuse, but primarily LLL santos. with associated inspiratory rales); Absent respiratory distress, stridor, accessory muscle use or prolonged expiratory phase Cardiovascular Cardiovascular exam: Present regular rate and normal rhythm Extremities Exam Extremities exam: Absent edema Neurological Exam Neurological exam: Present alert, oriented X3 and CN II-XII intact Skin Skin exam: Present warm and dry; Absent cyanosis, diaphoresis or pallor HEART Score HEART Score HEART Score assessment performed?: Yes History (anamnesis): Slightly suspicious ECG: Normal Age: 45-65 years Risk factors: 3 or more risk factors Troponin: </= normal limit HEART Score: 3 Critical Care Critical Care Time Critical Care Time: No Medical Decision Making Medical Records Medical records reviewed: Yes I reviewed the patient's medical records. Harjinder Inquiry Pt receiving controlled substance: No Harjinder was queried for this patient: No Vital Signs Vital Signs: 05/07/23 16:31 Temperature 98.5 F Temperature Source Oral Pulse Rate [Right Radial] 76 Respiratory Rate 20 Blood Pressure [Right Arm] 143/79 H Blood Pressure Mean [Right Arm] 100 Blood Pressure Source [Right Arm] Automatic Cuff Blood Pressure Position [Right Arm] Sitting 02 Sat by Pulse Oximetry 97 Oxygen Delivery Method Nasal Cannula Oxygen Flow Rate (LPM) 4 Lab Data Labs: Lab Results 05/07/23 16:40: WBC 4.3 L, RBC 4.24, Hgb 13.3, Hct 40.7, MCV 95.9, MCH 31.4 H, MCHC 32.8, RDW 12.9, Plt Count 156, MPV 8.2, Neut % (Auto) 62.1, Lymph % (Auto) 29.2, [place] % (Auto) 7.0, Eos % (Auto) 0.7, Baso % (Auto) 1.1, Neut # (Auto) 2.7, Lymph # (Auto) 1.3, [place] # (Auto) 0.3, Eos # (Auto) 0.0, Baso # (Auto) 0.1, Sodium 139, Potassium 4.2, Chloride 99, Carbon Dioxide 37 H, Anion Gap 7.2, BUN 41 H, Creatinine 2.30 H, Estimated Creat Clear 18, Estimated GFR 21 L, Est GFR ( Amer) 26 L, Glucose 99, Calcium 8.4, Total Bilirubin 0.4, AST 29, ALT 14, Alkaline Phosphatase 135 H, Troponin I 0.01, NT-Pro-B Natriuret Pep 1680 H, Total Protein 7.1, Albumin 3.6, Globulin 3.5 H, Albumin/Globulin Ratio 1.0 L 05/07/23 16:40 05/07/23 16:40 Response Orders (Tests/Meds): ED MEDICATIONS Discontinued Medications Generic Name Dose Route Start Last Admin Trade Name Zoey PRN Reason Stop Dose Admin Albuterol/Ipratropium 6 ml 05/07/23 16:41 05/07/23 16:52 Ipratropium/Albuterol 3 Ml Neb IH 05/07/23 16:42 6 ml ONCE ONE Administration Furosemide 40 mg 05/07/23 18:07 Furosemide 40mg/4ml Vial IV 05/07/23 18:08 ONCE ONE Methylprednisolone Sodium Succinate 125 mg 05/07/23 16:41 05/07/23 16:53 Methylprednisolone Sod Succ 125mg Vial IV 05/07/23 16:42 125 mg ONCE ONE Administration ORDERS Category Date Time Status XR chest portable Stat Exams 05/07/23 16:41 Completed Brain Natriuretic Peptide Stat Lab 05/07/23 16:40 Completed Complete Blood Count Auto Diff Stat Lab 05/07/23 16:40 Completed Comprehensive Metabolic Panel Stat Lab 05/07/23 16:40 Completed Troponin I Q3H Lab 05/07/23 19:45 Ordered Troponin I Q3H Lab 05/07/23 22:45 Ordered Troponin I Stat Lab 05/07/23 16:40 Completed MDM Narrative Medical Decision Narrative: 63-year-old female history of hypertension, hyperlipidemia, obesity COPD not on home oxygen, CHF presenting with shortness of breath. Patient states that she had a home health visit today. Home health states that she had water on her lungs, worsening in the past couple of days, so told her to come to the emergency department. Patient does not wear oxygen at home, reportedly, oxygen saturation was low at home with home health as well. Patient states she been having worsening PND/orthopnea, but denies cough, nausea or vomiting, fevers or chills, lower extremity edema, productive cough, chest pain, or any other concerns. History was obtained via conversation with patient. On arrival, patient hemodynamically stable, alert, oriented x4, appropriate, GCS 15, moving all extremities spontaneously, pupils equal and reactive to light. Full physical exam performed and significant for morbidly obese, chronically ill appearing patient in no acute distress. Wearing oxygen, but I turned it off and patient saturating appropriately on room air 95% and above. No increased work of breathing. Patient does have diffuse end expiratory wheezes, but she does also have associated left lower lung field inspiratory wheezes/Rales that are worse than the right. No lower extremity edema, abdominal tenderness. Hemodynamically stable and afebrile. Differential includes COPD, CHF, pneumonia, bronchitis, ACS, [place], pneumothorax, PE, dissection, pneumothorax, aortic aneurysm, among others. Patient was given DuoNeb x 2, Solu-Medrol for symptomatic management and correction of underlying abnormalities. Workup independently interpreted and significant for mild leukopenia, but largely nonactionable. Negative troponin. Patient does have mildly elevated BNP and kidney function, Lasix given. Because patient does have isolated wheezes on exam with associated rales, first dose of given here. Chest x-ray without acute cardiopulmonary or consolidative airspace disease. See radiology read for full review of final results. Independent interpretation of EKG shows sinus rhythm 69 beats a minute. No ST or T wave changes concerning for acute ischemia. Good R wave progression. [place] normal. [place], QRS, QT intervals within normal limits. Heart score 3. On reevaluation, patient feeling much better after DuoNebs and Solu-Medrol, cefdinir given without issue. Patient was also given 40 mg IV Lasix to help with BNP and shortness of breath. Given patient presentation, workup, history, this most likely represents mild fluid overloaded state and COPD exacerbation. Because patient at baseline without signs or symptoms of clinical decomp ensation, deemed appropriate for discharge. Results were relayed to patient who voiced understanding and were agreeable to outpatient management and follow up. At the time of discharge the patient was hemodynamically stable, tolerating PO, and mobilizing appropriately.
[2023-05-07] MEDS: IPRATROPIUM/ALBUTEROL 3 ML NEB 6 ML IH (16:52)
[2023-05-07] MEDS: METHYLPREDNISOLONE SOD SUCC 125MG VIAL 125 MG IV (16:53)
[2023-05-07 17:01] LABS: Basophils # 0.1 K/mm3 (0-0.2); Basophils % 1.1 % (0.1-2.0); Eosinophils % 0.7 % (0.1-12.0); Hematocrit 40.7 % (37.0-47.0); Hemoglobin 13.3 g/dL (12.2-16.2); Lymphocytes # 1.3 K/mm3 (0.7-4.5); Lymphocytes % 29.2 % (10-50); Mean Corpuscular HGB Conc 32.8 g/dL (31.8-35.4); Mean Corpuscular Hemoglobin 31.4 pg (27.0-31.2); Mean Corpuscular Volume 95.9 fl (81-99); Mean Platelet Volume 8.2 fl (7.4-10.4); Monocytes # 0.3 K/mm3 (0.1-1.0); Neutrophils # 2.7 K/mm3 (1.8-7.8); Neutrophils % 62.1 % (37.0-80.0); Platelet Count 156 K/mm3 (142-424); Red Blood Count 4.24 M/mm3 (4.20-5.40); Red Cell Distribution Width 12.9 % (11.5-17.5); White Blood Count 4.3 K/mm3 (4.8-10.8)
[2023-05-07 17:02] LABS: Chloride 99 mmol/L (98-107)
[2023-05-07 17:03] LABS: Potassium 4.2 mmoL/L (3.5-5.1); Sodium 139 mmol/L (136-145)
[2023-05-07 17:05] LABS: Alanine Aminotransferase 14 U/L (12-78); Alkaline Phosphatase 135 U/L (38-126); Aspartate Amino Transferase 29 U/L (14-36); Bilirubin,Total 0.4 mg/dl (0.2-1.3); Blood Urea Nitrogen 41 mg/dl (7-17); Creatinine Clearance Estimated 18 mL/min (50-200); Estimated Glomerular Filt Rate 21 ml/min (>60); GFR (African American) 26 ML/MIN (>60)
--- NOTE | 2023-05-07 17:05 | ECG_ITS ---
APPROVED REPORT Exam: Resting ECG HR:69 bpm ECG Measurements Heart Rate 69 AXES ME 172 P 70 QRSd 111 QRS 54 QT 430 T 66 QTc 448 Conclusion SINUS RHYTHM Normal ECG UNCONFIRMED REPORT Electronically signed by : Zachariah Mercado MD 05/10/2023 14:47:09
[2023-05-07 17:06] LABS: Albumin Level 3.6 g/dl (3.5-5.0); Anion Gap 7.2 mEq/L (5-15); Calcium 8.4 mg/dl (8.4-10.2); Carbon Dioxide 37 mmol/L (22.0-30.0); Globulin 3.5 g/dL (1.3-3.2); Glucose 99 mg/dl (74-100); Total Protein,Serum 7.1 g/dl (6.3-8.2)
[2023-05-07 17:15] LABS: NT Pro Brain Natriuretic Pep. 1680 pg/mL (0-125)
[2023-05-07 17:20] LABS: Troponin I 0.01 ng/ml (0.00-0.034)
[2023-05-07] MEDS: FUROSEMIDE 40MG/4ML VIAL 40 MG IV (18:19)
[2023-05-07] MEDS: CEFDINIR 300MG CAPSULE 300 MG PO (18:19)
--- NOTE | 2023-05-07 18:31 | PC.NURSE ---
Patient 92% on room air.
[2023-05-07 18:47] VITALS: BP 140/70; PULSE 72; RESP 20; TEMP 36.8; O2SAT 92
== END 2023-05-07 18:48 | disposition home or self-care (01) ==
PROVIDERS: Emergency Provider Emergency Medicine; PCP Internal Medicine Adolescent Medicine
DX: J44.1 Chronic obstructive pulmonary disease with (acute) exacerbation (principal); I11.0 Hypertensive heart disease with heart failure; I50.9 Heart failure, unspecified; E78.5 Hyperlipidemia, unspecified; R06.02 Shortness of breath; G40.909 Epilepsy, unspecified, not intractable, without status epilepticus; F17.210 Nicotine dependence, cigarettes, uncomplicated
CPT/HCPCS: 71045; 80053; 83880; 84484; 85025; 93005; 96374; 96375; 99285

== ENCOUNTER 2023-06-19 13:55 | Inpatient (IN) | payer MEDICARE, MEDICAID, SELFPAY ==
[2023-06-19] VITALS (14 sets, daily range): BP systolic 108–155; BP diastolic 57–89; PULSE 62–99; RESP 12–22; TEMP 36.4–37; O2SAT 89–98; BMI 51.7; BMI 54.8
--- NOTE | 2023-06-19 13:59 | ECG_ITS ---
APPROVED REPORT Exam: Resting ECG HR:97 bpm ECG Measurements Heart Rate 97 AXES PA 205 P 75 QRSd 103 QRS 73 QT 336 T 77 QTc 390 Conclusion SINUS RHYTHM INDETERMINATE AXIS NORMAL ECG UNCONFIRMED REPORT Electronically signed by : Michale Castillo, 06/19/2023 15:07:01
--- NOTE | 2023-06-19 14:01 | ED_ITS ---
<Statement entered by Abi Castillo MD - 06/20/23 07:18> I was consulted by the LARON, and we discussed the complexity of the problems being addressed. I approved the treatment and management plan for this patient's care in the emergency department, thus performing a substantive portion of the medical decision making. Abi Castillo MD, NAILA, FACEP Discharge Plan Disposition Chief Complaint: Chest Pain Prescriptions Prescriptions: No Action verapamil 120 MG tablet 120 mg PO HS propranolol 20 MG tablet 20 mg PO 1700 duloxetine 60 MG capsule,delayed release(DR/EC) 60 mg PO DAILY multivitamin 1 EACH tablet 1 each PO DAILY ropinirole 1 MG tablet 1 mg PO DAILY sumatriptan succinate 100 MG tablet 100 mg PO NEEDED PRN (Reason: MIGRAINES) venlafaxine 150 MG capsule,extended release 24hr 150 mg PO DAILY potassium chloride 10 MEQ tablet extended release 10 meq PO DAILY magnesium oxide 400 MG tablet 400 mg PO DAILY buspirone 30 MG tablet 30 mg PO DAILY topiramate 50 MG tablet 50 mg PO BID trazodone 100 mg tablet 200 mg PO HS Patient Comments: TAKE TWO TABLETS BY MOUTH EVERY DAY AT BEDTIME MAY CAUSE DROWSINESS aripiprazole 5 mg tablet 5 mg PO DAILY Patient Comments: TAKE ONE TABLET BY MOUTH EVERY DAY cefdinir 300 mg capsule 300 mg PO BID Qty: 10 0RF levetiracetam 500 MG tablet 500 mg PO DAILY omeprazole 40 MG capsule,delayed release(DR/EC) 40 mg PO DAILY furosemide 20 MG tablet 20 mg PO DAILY prednisone 20 mg tablet 40 mg PO DAILY 5 Days Qty: 10 0RF cefdinir 300 mg capsule 300 mg PO BID 5 Days Qty: 10 0RF Referrals Follow up/Referrals: Zachariah Mercado MD [Primary Care Provider] - See instructions Clinical Impressions Clinical Impression: Acute exacerbation of chronic obstructive pulmonary disease, Acute hypoxemic respiratory failure CHF exacerbation Qualifiers: Heart failure type: unspecified Qualified Code(s): I50.9 - Heart failure, unspecified Discharge ED Provider: Chely Hernandez HPI General Chief Complaint: Chest Pain Stated Complaint: CHEST PAIN Time Seen by Provider: 06/19/23 14:01 History of Present Illness HPI narrative: Patient presents for evaluation of cough wheezing and chest pain for 3 days. Patient is a pack-a-day smoker and does have a history of COPD but is not on chronic oxygen. Patient also has history of CHF. Patient denies sick contacts. She denies fever or chills hemoptysis hematochezia melena nausea vomiting diarrhea. She does endorse having increased swelling of her bilateral lower extremities, left greater than right and swelling of her left hand. Related Data Home Medications Medication Instructions Recorded Confirmed levetiracetam 500 mg tablet 500 mg PO DAILY SEIZURES 01/26/21 08/23/22 omeprazole 40 mg capsule,delayed 40 mg PO DAILY Acid reflux 01/26/21 08/23/22 release furosemide 20 mg tablet 20 mg PO DAILY Fluid 07/21/21 08/23/22 buspirone 30 mg tablet 30 mg PO DAILY MOOD 08/23/21 08/23/22 duloxetine 60 mg capsule,delayed 60 mg PO DAILY MOOD 08/23/21 08/23/22 release magnesium oxide 400 mg (241.3 mg 400 mg PO DAILY Supplement 08/23/21 08/23/22 magnesium) tablet multivitamin 1 each PO DAILY Supplement 08/23/21 08/23/22 potassium chloride 10 mEq 10 meq PO DAILY POTASSIUM 08/23/21 08/23/22 tablet,extended release SUPPLEMENT propranolol 20 mg tablet 20 mg PO 1700 Tremors 08/23/21 08/23/22 ropinirole 1 mg tablet 1 mg PO DAILY RESTLESS LEG SYNDROME 08/23/21 08/23/22 sumatriptan succinate 100 mg tablet 100 mg PO NEEDED PRN MIGRAINES 08/23/21 08/23/22 topiramate 50 mg tablet 50 mg PO BID MIGRAINE 08/23/21 08/23/22 venlafaxine 150 mg 150 mg PO DAILY Migraine 08/23/21 08/23/22 capsule,extended release 24 hr verapamil 120 mg tablet 120 mg PO HS High blood pressure 08/23/21 08/23/22 aripiprazole 5 mg tablet 5 mg PO DAILY Mood 08/07/22 08/23/22 trazodone 100 mg tablet 200 mg PO HS Mood 08/07/22 08/23/22 Previous Rx's Medication Instructions Recorded cefdinir 300 mg capsule 300 mg PO BID #10 caps 08/08/22 cefdinir 300 mg capsule 300 mg PO BID 5 days #10 caps 05/07/23 prednisone 20 mg tablet 40 mg (2 x 20 mg) PO DAILY 5 days 05/07/23 #10 tabs Allergies Allergy/AdvReac Type Severity Reaction Status Date / Time Penicillins Allergy Verified 08/06/22 14:11 [facility] Disclaimer: The information contained in this section may have been updated after the patient was seen, as this information can be updated by other users. Medical History (Updated 06/19/23 @ 15:39 by SEPIDEH Mitchell) Seizure disorder COPD (chronic obstructive pulmonary disease) Family History (Updated 08/06/22 @ 16:49 by Catrachita Glez) Other Family history of cancer Social History (Updated 08/06/22 @ 16:49 by Catrachita Glez) Smoking Status: Current every day smoker tobacco type: cigarettes packs per day: 1 second hand exposure: Yes alcohol intake: never counseling given: No substance use type: denies use counseling given: No current occupational status: retired and disabled Travel in the last 8 weeks: None adopted: No caregiver/support person: No foster care: No household members: spouse housing: house marital status: 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; 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 pets and animals: Yes pets and animals: cat(s) Hx Recent Travel: No sexually active: No caffeine: Yes physical activity: none cony/shinto: Mandaen special cony needs: No working smoke detector in home: Yes fire extinguisher in home: Yes carbon monox detector in home: No firearms in home: No do you feel safe at home: Yes victim of physical abuse: No victim of emotional abuse: No victim of sexual abuse: No would you like helpful sources: No ROS Obtained: Yes Systems reviewed as appropriate & no additional complaints except as documented Physical Exam General General appearance: alert and in no apparent distress Head Head exam: atraumatic and normal inspection Eye Eye exam: Present normal appearance, PERRL and EOMI ENT ENT exam: Present normal exam, normal oropharynx and mucous membranes moist Neck Neck exam: Present normal inspection, full ROM and trachea midline; Absent lymphadenopathy Chest Chest inspection: Present normal inspection and symmetric chest wall rise; Absent tenderness Respiratory Respiratory exam: Present other (Patient has diminished air entry in all 4 santos with end expiratory rales diffusely and end expiratory wheezes in the lower lung santos without accessory muscle use or tachypnea) Cardiovascular Cardiovascular exam: Present regular rate, normal rhythm and normal heart sounds Abdominal Exam Abdominal exam: Present soft (Obese) and normal bowel sounds; Absent tenderness, guarding or rebound Extremities Exam Extremities exam: Present normal inspection, full ROM and edema (Patient has left greater than right bilateral lower extremity pitting edema and +1 pitting edema in the left upper distal extremity without erythema) Back Exam Back exam: Present normal inspection and full ROM Neurological Exam Neurological exam: Present alert, oriented X3 and CN II-XII intact Psychiatric Psychiatric exam: Present normal affect and normal mood Skin Skin exam: Present warm, dry and normal color (Patient has chronic skin changes in the bilateral lower extremities with dark pigmentation but no evidence of erythema induration or fluctuance. Remainder of skin exam is warm and dry) HEART Score HEART Score HEART Score assessment performed?: Yes History (anamnesis): Slightly suspicious ECG: Normal Age: 45-65 years Risk factors: 3 or more risk factors Troponin: </= normal limit HEART Score: 3 Critical Care Critical Care Time Critical Care Time: Yes Attestation: On 06/19/23, the high probability of a clinically significant, sudden or life threatening deterioration of the following system(s) required my full and direct attention, intervention and personal management. The time I documented below is in addition to time spent performing reported procedures but includes the following listed in this critical care notation. Total Time Total Critical Care Time: 30 Medical Decision Making Medical Records Medical records reviewed: Yes I reviewed the patient's medical records. Harjinder Nathan Pt receiving controlled substance: No Vital Signs Vital Signs: 06/19/23 13:55 06/19/23 14:31 06/19/23 15:01 Temperature 98.4 F Temperature Source Oral Pulse Rate 81 80 Pulse Rate [Radial] 93 H Respiratory Rate 18 20 12 Blood Pressure 110/57 L 108/62 L Blood Pressure [Right Arm] 144/72 H Blood Pressure Mean [Right Arm] 96 Blood Pressure Source [Right Arm] Automatic Cuff Blood Pressure Position [Right Arm] Sitting 02 Sat by Pulse Oximetry 90 L 96 97 Oxygen Delivery Method Room Air Room Air Room Air 06/19/23 15:31 06/19/23 16:01 Temperature Temperature Source Pulse Rate 88 Pulse Rate [Radial] Respiratory Rate 21 20 Blood Pressure 130/60 155/68 H Blood Pressure [Right Arm] Blood Pressure Mean [Right Arm] Blood Pressure Source [Right Arm] Blood Pressure Position [Right Arm] 02 Sat by Pulse Oximetry 96 97 Oxygen Delivery Method Room Air Room Air Lab Data Lab results reviewed: Yes I reviewed the patient's lab results. Labs: Lab Results 06/19/23 14:12: WBC 6.0, RBC 4.37, Hgb 13.8, Hct 44.0, MCV 100.6 H, MCH 31.5 H, MCHC 31.3 L, RDW 12.8, Plt Count 166, MPV 8.4, Neut % (Auto) 62.1, Lymph % (Auto) 28.0, Kaufman % (Auto) 8.4, Eos % (Auto) 0.7, Baso % (Auto) 0.9, Neut # (Auto) 3.7, Lymph # (Auto) 1.7, Kaufman # (Auto) 0.5, Eos # (Auto) 0.0, Baso # (Auto) 0.1, PT 10.2, INR 0.94, D-Dimer 1.19 H, Sodium 140, Potassium 4.3, Chloride 102, Carbon Dioxide 31 H, Anion Gap 11.3, BUN 28 H, Creatinine 2.20 H, Estimated Creat Clear 18, Estimated GFR 22 L, Est GFR ( Amer) 27 L, Glucose 96, Calcium 9.0, Magnesium 1.9, Total Bilirubin 0.4, AST 33, ALT 18, A lkaline Phosphatase 156 H, Troponin I < 0.01, NT-Pro-B Natriuret Pep 1320 H, Total Protein 7.4, Albumin 4.1, Globulin 3.3 H, Albumin/Globulin Ratio 1.2 06/19/23 14:21: SARS-CoV-2 (PCR) Not detected, Influenza A Untype (PCR) Not detected, Influenza Type B (PCR) Not detected 06/19/23 14:33: VBG pH 7.26 L, VBG pCO2 66.0 H, VBG pO2 50.3 H, VBG HCO3 29.0, V BG Total CO2 31.0 H, VBG O2 Saturation 86.1 H, VBG Base Excess 2.0 06/19/23 14:38: VBG Lactic Acid 3.0 H 06/19/23 14:12 06/19/23 14:12 Response Orders (Tests/Meds): ED MEDICATIONS Discontinued Medications Generic Name Dose Route Start Last Admin Trade Name Freq PRN Reason Stop Dose Admin Acetaminophen 1,000 mg 06/19/23 14:07 06/19/23 14:29 Acetaminophen 1,000mg/100ml Vial IV 06/19/23 14:08 1,000 mg ONCE ONE Administration Albuterol/Ipratropium 3 ml 06/19/23 14:07 06/19/23 14:29 Ipratropium/Albuterol 3 Ml Neb IH 06/19/23 14:08 3 ml ONCE ONE Administration Dexamethasone Sodium Phosphate 10 mg 06/19/23 14:07 06/19/23 14:30 Dexamethasone 4mg/Ml 1ml Vial IM 06/19/23 14:08 Not Given ONCE ONE Dexamethasone Sodium Phosphate 10 mg 06/19/23 14:29 06/19/23 14:33 Dexamethasone 4mg/Ml 1ml Vial IV 06/19/23 14:30 10 mg ONCE ONE Administration Furosemide 80 mg 06/19/23 15:45 06/19/23 16:13 Furosemide 100mg/10ml Vial IV 06/19/23 15:46 Not Given ONCE ONE Ketorolac Tromethamine 15 mg 06/19/23 14:07 06/19/23 14:27 Ketorolac 30mg/Ml Vial IV 06/19/23 14:08 15 mg ONCE ONE Administration ORDERS Category Date Time Status Chest XR -- portable [XR chest portable] Stat Exams 06/19/23 14:07 Completed BNP [Brain Natriuretic Peptide] Stat Lab 06/19/23 14:12 Completed CBC w/Auto Diff [Complete Blood Count Auto Diff] Stat Lab 06/19/23 14:12 Completed CMP [Comprehensive Metabolic Panel] Stat Lab 06/19/23 14:12 Completed Complete Blood Count Auto Diff AMLAB Lab 06/20/23 06:00 Ordered Comprehensive Metabolic Panel AMLAB Lab 06/20/23 06:00 Ordered D-Dimer Stat Lab 06/19/23 14:12 Completed INR [Prothrombin Time INR] Stat Lab 06/19/23 14:12 Completed Lactate Venous Stat Lab 06/19/23 14:38 Results Magnesium AMLAB Lab 06/20/23 06:00 Ordered Magnesium Stat Lab 06/19/23 14:12 Completed Rapid PCR Covid and Flu A/B Stat Lab 06/19/23 14:21 Completed Trop I [Troponin I] Stat Lab 06/19/23 14:12 Completed Troponin I Q3H Lab 06/19/23 17:15 Ordered Troponin I Q3H Lab 06/19/23 20:15 Ordered VBG [Venous Blood Gas] Stat RT 06/19/23 14:33 Completed VBG [Venous Blood Gas] Stat RT 06/19/23 14:38 Results MDM Narrative Medical Decision Narrative: In summary patient is a 63-year-old female who presents to the emergency department for evaluation of chest pain cough and shortness of breath. Patient is normotensive with heart rate of 93 and satting at 90% on room air upon arriva, and afebrile. Physical exam shows a morbidly obese 63-year-old female who is pursed lip breathing in the expiratory phase. Auscultation of breath sounds reveals diminished air entry diminished breath sounds at the bases end expiratory wheezes and slight rhonchi in all 4 santos. Heart sounds are normal. Rhythm on the bedside monitor appears to be normal sinus rhythm with a rate of 93. Patient has bilateral lower extremity edema, left greater than right brawny pigmentation of her bilateral lower extremities without evidence of erythema induration or infection, patient also has edema of the left upper extremity distally including the hand. Differential diagnosis includes ACS versus PE versus viral bacterial respiratory tract infection versus COPD exacerbation versus CHF exacerbation etc. Initial workup will be conducted with hematologic labs EKG plain film x-ray. Initial interventions include DuoNeb, Decadron, acetaminophen, Toradol, supplemental O2. Initial workup reviewed by me shows a creatinine of greater than 2 which is likely very close to her baseline with a GFR of 12, undetectable troponins, normal white count with no shift, elevated NT proBNP. Upon repeat evaluation patient reports improved subjective symptoms of chest pain and dyspnea however still was satting at 89% on room air/started her on 2 L by nasal cannula with coarse wet cough. Given this discussed with the patient her findings and whether or not she would be agreeable to hospital [facility] which she was. I then discussed patient management with Dr. Luke of [facility] medicine who agreed to accept the patient for admission.
--- NOTE | 2023-06-19 14:07 | XR_ITS ---
FINAL REPORT CLINICAL HISTORY: cough wheezing COMPARISON: 05/07/2023 FINDINGS: SINGLE-VIEW CHEST The heart size is normal. The mediastinum is normal. There are bibasilar opacities, may represent atelectasis versus pneumonia, somewhat worse. There is no pneumothorax. IMPRESSION: Worsening bibasilar atelectasis versus pneumonia. Reviewed, Interpreted and Dictated by Levar Shah III, MD Transcribed by Elodia Valdes Authenticated and [facility]
[2023-06-19] MEDS: KETOROLAC 30MG/ML VIAL 15 MG IV (14:27)
[2023-06-19 14:28] LABS: Coronavirus 19, PCR Not Detected (NotDetected); Influenza A, PCR Not Detected (NotDetected); Influenza B, PCR Not Detected (NotDetected)
[2023-06-19] MEDS: IPRATROPIUM/ALBUTEROL 3 ML NEB IH ×2 (14:29→19:04)
[2023-06-19] MEDS: ACETAMINOPHEN 1,000MG/100ML VIAL 1000 MG IV (14:29)
[2023-06-19 14:31] LABS: Basophils # 0.1 K/mm3 (0-0.2); Basophils % 0.9 % (0.1-2.0); Eosinophils % 0.7 % (0.1-12.0); Hemoglobin 13.8 g/dL (12.2-16.2); Lymphocytes # 1.7 K/mm3 (0.7-4.5); Mean Corpuscular HGB Conc 31.3 g/dL (31.8-35.4); Mean Corpuscular Hemoglobin 31.5 pg (27.0-31.2); Mean Corpuscular Volume 100.6 fl (81-99); Mean Platelet Volume 8.4 fl (7.4-10.4); Monocytes # 0.5 K/mm3 (0.1-1.0); Monocytes % 8.4 % (1.7-9.3); Neutrophils # 3.7 K/mm3 (1.8-7.8); Neutrophils % 62.1 % (37.0-80.0); Platelet Count 166 K/mm3 (142-424); Red Blood Count 4.37 M/mm3 (4.20-5.40); Red Cell Distribution Width 12.8 % (11.5-17.5)
[2023-06-19 14:33] LABS: VBG Oxygen Saturation 86.1 % (50-70); VBG PH 7.26 mmol/L (7.31-7.41); VBG PO2 50.3 mmol/L (28-40)
[2023-06-19] MEDS: DEXAMETHASONE 4MG/ML 1ML VIAL 10 MG IV (14:33)
[2023-06-19 14:37] LABS: Alanine Aminotransferase 18 U/L (12-78); Albumin Level 4.1 g/dl (3.5-5.0); Albumin/Globulin Ratio 1.2 (1.1-1.8); Alkaline Phosphatase 156 U/L (38-126); Anion Gap 11.3 mEq/L (5-15); Aspartate Amino Transferase 33 U/L (14-36); Bilirubin,Total 0.4 mg/dl (0.2-1.3); Blood Urea Nitrogen 28 mg/dl (7-17); Carbon Dioxide 31 mmol/L (22.0-30.0); Chloride 102 mmol/L (98-107); Creatinine Clearance Estimated 18 mL/min (50-200); Estimated Glomerular Filt Rate 22 ml/min (>60); GFR (African American) 27 ML/MIN (>60); Globulin 3.3 g/dL (1.3-3.2); Glucose 96 mg/dl (74-100); INR 0.94 (0.9-1.1); Magnesium 1.9 mg/dl (1.6-2.3); Potassium 4.3 mmoL/L (3.5-5.1); Prothrombin Time 10.2 seconds (10.1-12.5); Sodium 140 mmol/L (136-145); Total Protein,Serum 7.4 g/dl (6.3-8.2)
[2023-06-19 14:49] LABS: D-Dimer 1.19 ug/mL (0.0-0.5)
[2023-06-19 14:50] LABS: Troponin I < 0.01 ng/ml (0.00-0.034)
[2023-06-19 15:12] LABS: NT Pro Brain Natriuretic Pep. 1320 pg/mL (0-125)
[2023-06-19] MEDS: FUROSEMIDE 100MG/10ML VIAL 80 MG IV (15:37)
--- NOTE | 2023-06-19 16:43 | PC.NURSE ---
pt assigned to room 209. pt to be decon prior to admission to second floor.
--- NOTE | 2023-06-19 17:06 | PC.NURSE ---
Report called to Med Surg.
--- NOTE | 2023-06-19 17:38 | PC.NURSE ---
michelle kauffman prior to transport to [address] [place] [address]
--- NOTE | 2023-06-19 17:39 | PC.NURSE ---
PT WAS DECOMPOSED BY [facility] AND [facility] AND PT IS NOW BEING TRANSPORTED VIA WHEELCHAIR TO ROOM 209 BY [facility]
--- NOTE | 2023-06-19 17:40 | PC.NURSE ---
arrived by w/c from ED
--- NOTE | 2023-06-19 19:15 | PC.NURSE ---
Phone call made to patient's Zay to update on POC for tonight and that Dr. Luke will call him tomorrow after cardiology consult and give him update on POC
--- NOTE | 2023-06-19 19:22 | EXP.HP ---
History of Present Illness *Admission Date: 06/19/23 *Reason for visit:: shortnss of breath, leg swelling *History of present illness: Ms. Diaz is a 3-year old female with CKD 4, depression, through BCD, CHF, COPD who presented to the ER with worsening cough, wheeze, chest discomfort for 3 days. Smokes at least a pack a day. States she has been seeing significant swelling in her legs over the past several days to week. Does not wear oxygen at home. Legs have been more heavy. Denies any fever, nausea, vomiting, diarrhea. Said intermittent chest pressure but nothing persistent. Comes intermittently, not brought on by rest or work. Worse with her cough. Initial evaluation in the ER, found to be hypoxic. Initiated on supplemental oxygen. Chest imaging with bibasilar atelectasis, no focal pneumonia. Labs positive for elevated BNP of 1300, troponin less than 0.01. Creatinine elevated at 2.2. Electrolytes normal. White cell count normal at 6. Given oxygen requirement, volume overload, CHF exacerbation concern, ER consulted medicine for further management and admission. On evaluation after arriving to the floor, patient appears in no acute distress. Has had urine output since receiving diuretics in the ER. Tolerated breathing treatments well with improvement in her shortness of breath. No longer having any chest discomfort. On 1 L nasal cannula oxygen with sats in the mid 90s. [facility] Disclaimer: The information contained in this section may have been updated after the patient was seen, as this information can be updated by other users. Medical History (Updated 06/19/23 @ 19:29 by Michael Luke MD) Kidney stone Chronic kidney disease Sinus headache History of back pain History of gastroesophageal reflux (GERD) Congestive heart failure Seizure disorder COPD (chronic obstructive pulmonary disease) Surgical History History of cholecystectomy History of section Family History Family history of acute congestive heart failure Family history of cancer Family history of myocardial infarction Social History Smoking Status: Current every day smoker tobacco type: cigarettes packs per day: 1 second hand exposure: Yes alcohol intake: never counseling given: No substance use type: denies use counseling given: No current occupational status: retired and disabled Travel in the last 8 weeks: None adopted: No caregiver/support person: No foster care: No household members: spouse housing: house marital status: 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; 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 pets and animals: Yes pets and animals: cat(s) Hx Recent Travel: No sexually active: No caffeine: Yes physical activity: none cony/synagogue: Denominational special cony needs: No working smoke detector in home: Yes fire extinguisher in home: Yes carbon monox detector in home: No firearms in home: No do you feel safe at home: Yes victim of physical abuse: No victim of emotional abuse: No victim of sexual abuse: No would you like helpful sources: No Review of Systems Review of Systems Review of systems (narrative): 14 point review of systems performed, pertinent positives and negatives as per [facility] Meds Home Medications and Allergies Home Medications Medication Instructions Recorded Confirmed Type levetiracetam 500 mg tablet 500 mg PO BID SEIZURES 01/26/21 06/19/23 History omeprazole 40 mg capsule,delayed 40 mg PO DAILY Acid reflux 01/26/21 06/19/23 History release furosemide 20 mg tablet 40 mg PO DAILY Fluid 07/21/21 06/19/23 History buspirone 30 mg tablet 20 mg PO DAILY MOOD 08/23/21 06/19/23 History magnesium oxide 400 mg (241.3 mg 400 mg PO DAILY Supplement 08/23/21 06/19/23 History magnesium) tablet multivitamin 1 each PO DAILY Supplement 08/23/21 06/19/23 History potassium chloride 10 mEq 10 meq PO BID POTASSIUM SUPPLEMENT 08/23/21 06/19/23 History tablet,extended release propranolol 20 mg tablet 20 mg PO 1700 Tremors 08/23/21 06/19/23 History ropinirole 1 mg tablet 1 mg PO DAILY RESTLESS LEG SYNDROME 08/23/21 06/19/23 History sumatriptan succinate 100 mg tablet 100 mg PO NEEDED PRN MIGRAINES 08/23/21 06/19/23 History topiramate 50 mg tablet 50 mg PO BID MIGRAINE 08/23/21 06/19/23 History venlafaxine 150 mg 75 mg PO DAILY Migraine 08/23/21 06/19/23 History capsule,extended release 24 hr verapamil 120 mg tablet 120 mg PO HS High blood pressure 08/23/21 06/19/23 History aripiprazole 5 mg tablet 5 mg PO DAILY Mood 08/07/22 06/19/23 History trazodone 100 mg tablet 100 mg PO HS Mood 08/07/22 06/19/23 History New Prescriptions to Start Prescriptions: Allergies Allergy/AdvReac Type Severity Reaction Status Date / Time Penicillins Allergy Verified 08/06/22 14:11 Exam Data for Last 24 hours Vital signs and Labs for Last 24 Hours: Temp Pulse Resp BP Pulse Ox O2 Del Method O2 Flow Rate 97.6 F 62 22 137/74 96 Nasal Cannula 1 06/19/23 18:10 06/19/23 19:05 06/19/23 18:10 06/19/23 18:10 06/19/23 18:42 06/19/23 18:43 06/19/23 18:43 Laboratory Results - last 24 hr 06/19/23 14:12: WBC 6.0, RBC 4.37, Hgb 13.8, Hct 44.0, MCV 100.6 H, MCH 31.5 H, MCHC 31.3 L, RDW 12.8, Plt Count 166, MPV 8.4, Neut % (Auto) 62.1, Lymph % (Auto) 28.0, [place] % (Auto) 8.4, Eos % (Auto) 0.7, Baso % (Auto) 0.9, Neut # (Auto) 3.7, Lymph # (Auto) 1.7, [place] # (Auto) 0.5, Eos # (Auto) 0.0, Baso # (Auto) 0.1, PT 10.2, INR 0.94, D-Dimer 1.19 H, Sodium 140, Potassium 4.3, Chloride 102, Carbon Dioxide 31 H, Anion Gap 11.3, BUN 28 H, Creatinine 2.20 H, Estimated Creat Clear 18, Estimated GFR 22 L, Est GFR ( Amer) 27 L, Glucose 96, Calcium 9.0, Magnesium 1.9, Total Bilirubin 0.4, AST 33, ALT 18, Alkaline Phosphatase 156 H, Troponin I < 0.01, NT-Pro-B Natriuret Pep 1320 H, Total Protein 7.4, Albumin 4.1, Globulin 3.3 H, Albumin/Globulin Ratio 1.2 06/19/23 14:21: SARS-CoV-2 (PCR) Not detected, Influenza A Untype (PCR) Not detected, Influenza Type B (PCR) Not detected 06/19/23 14:33: VBG pH 7.26 L, VBG pCO2 66.0 H, VBG pO2 50.3 H, VBG HCO3 29.0, VBG Total CO2 31.0 H, VBG O2 Saturation 86.1 H, VBG Base Excess 2.0 06/19/23 14:38: VBG Lactic Acid 3.0 H I & O for Last 24 hours: Intake & Output 06/16/23 06/17/23 06/18/23 06/19/23 23:59 23:59 23:59 23:59 Weight 127.414 kg Constitutional Constitutional: no acute distress, morbidly obese, chronically ill appearing, disheveled and cooperative *Routine HEENT Exam Head: Present normocephalic Eye: Present EOMI and PERRL ENT: Present mucous membranes moist *Routine Neck Exam Neck: Present supple; Absent lymphadenopathy *Routine Respiratory Exam Respiratory: Present distant breath sounds and diminished air movement; Absent rhonchi, wheezes or crackles *Routine Cardiovascular Exam Cardiovascular: Present RRR *Routine Abdominal Exam Abdominal: Present soft and normoactive bowel sounds; Absent tenderness *Routine Rectal Exam Rectal:: deferred *Routine Genitalia Exam Genitalia:: deferred *Routine Extremities Exam Extremities: Present edema (3+ edema to thighs and legs); Absent cyanosis or clubbing *Routine Skin Exam Skin: Present warm; Absent rash *Routine Neurological Exam Neurological: Present alert, oriented X3 and moving all extremities; Absent altered mental status Assessment and Plan *Assessment and plan (1) Acute exacerbation of chronic obstructive pulmonary disease: Status: Acute Category: Medical Code(s): J44.1 - Chronic obstructive pulmonary disease with (acute) exacerbation (2) CHF exacerbation: Status: Acute Qualifiers: Heart failure type: unspecified Qualified Code(s): I50.9 - Heart failure, unspecified Category: Medical Code(s): I50.9 - Heart failure, unspecified (3) Chronic kidney disease: Status: Acute Qualifiers: Chronic kidney disease stage: stage 4 (severe) Qualified Code(s): N18.4 - Chronic kidney disease, stage 4 (severe) Category: Medical Code(s): N18.9 - Chronic kidney disease, unspecified (4) Major depression: Status: Chronic Qualifiers: Major depression recurrence: recurrent Active/Remission status: currently active Major depression episode severity: severe Psychotic features: with psychotic features Qualified Code(s): F33.3 - Major depressive disorder, recurrent, severe with psychotic symptoms Category: Medical Code(s): F32.9 - Major depressive disorder, single episode, unspecified (5) Class 3 obesity: Status: Chronic Category: Medical Code(s): E66.9 - Obesity, unspecified Plan 63-year-old female with multiple, these who presents with new oxygen or vent, edema, presentation consistent with CHF and COPD exacerbations. Discussed case with ER, request admission for diuresis, cardiology eval, and echo. Medicine agreed to admit for further management. Administered 80 mg Lasix in the ER. Problems addressed as follows: CHF exacerbation Hypertension - History of diastolic heart failure. EF 55% in 2021. Repeat echo pending. -Diurese aggressively, Lasix 80 mg IV x 1 in the ER, repeat 40 mg twice daily. Goal output 2 L a day, strict I's and O's -Monitor kidney function closely during admission, creatinine elevated 2.2. Repeat CBC, CMP, magnesium ordered for the morning - Potassium 4.3, BUN 1320 -Will set her cardiology consult in the morning pending patient's symptoms Mood disorder with major depression: Migraine disorder - Continue complex home regimen including trazodone 100 mg nightly, aripiprazole 5 mg daily, BuSpar 20 mg daily - venlafaxine 75 mg daily, Topamax 50 mg twice daily Hypertension: Continue verapamil 120 mg nightly Seizure disorder: Continue Keppra 500 mg twice daily Restless leg: Continue ropinirole 1 mg daily Tremor: Continue propranolol 20 mg nightly GERD: Continue PPI daily PT and OT to evaluate patient in the morning, patient may necessitate placement. Case management to assist with dispo recommendations Full code Cardiac diet lovenox 30mg subcu daily
[2023-06-19 19:37] LABS: Lactate Venous 2.9 mmol/L (0.4-2.0)
[2023-06-19 20:12] LABS: Troponin I < 0.01 ng/ml (0.00-0.034)
[2023-06-19 21:08] LABS: Troponin I < 0.01 ng/ml (0.00-0.034)
[2023-06-19] MEDS: POTASSIUM CHLORIDE 10 MEQ 10 EACH PO (21:27)
[2023-06-19] MEDS: PANTOPRAZOLE 40MG TABLET 40 MG PO (21:27)
[2023-06-19] MEDS: levETIRAcetam 500 MG TABLET PO (21:27)
[2023-06-19] MEDS: TOPIRAMATE 50 MG 50 EACH PO (21:28)
[2023-06-19] MEDS: VERAPAMIL 120 MG 120 EACH PO (21:29)
[2023-06-19] MEDS: FUROSEMIDE 40MG/4ML VIAL 80 MG IV (21:30)
[2023-06-20] VITALS (11 sets, daily range): BP systolic 94–140; BP diastolic 51–73; PULSE 60–87; RESP 16–22; TEMP 36.4–36.9; O2SAT 89–96; BMI 55.1
[2023-06-20] MEDS: IPRATROPIUM/ALBUTEROL 3 ML NEB IH ×5 (00:38→22:56)
--- NOTE | 2023-06-20 01:01 | PC.NURSE ---
RESTING IN BED. HOB UP 30 DEGREES. HAS MILD TREMORS TO HANDS. CONTACT PRECAUTIONS IN EFFECT DUE TO BED BUG INFESTATION UPON PATIENTS ED ARRIVAL. SEIZURE PRECATIONS. SIDE RAILS PADDED. 02 AT 1LNC IN USE. NO RESP DISTRESS. LUNGS C/D BILAT. DRY COUGH NOTED.
[2023-06-20 03:09] LABS: Lactate Venous 1.3 mmol/L (0.4-2.0)
[2023-06-20 06:07] LABS: Basophils % 0.4 % (0.1-2.0); Eosinophils % 0.2 % (0.1-12.0); Hemoglobin 12.5 g/dL (12.2-16.2); Lymphocytes # 0.9 K/mm3 (0.7-4.5); Lymphocytes % 19.5 % (10-50); Mean Corpuscular HGB Conc 31.3 g/dL (31.8-35.4); Mean Corpuscular Hemoglobin 30.7 pg (27.0-31.2); Mean Corpuscular Volume 98.2 fl (81-99); Mean Platelet Volume 8.9 fl (7.4-10.4); Monocytes # 0.3 K/mm3 (0.1-1.0); Monocytes % 5.6 % (1.7-9.3); Neutrophils # 3.3 K/mm3 (1.8-7.8); Neutrophils % 74.3 % (37.0-80.0); Platelet Count 142 K/mm3 (142-424); Red Blood Count 4.07 M/mm3 (4.20-5.40); White Blood Count 4.5 K/mm3 (4.8-10.8)
[2023-06-20 06:15] LABS: Alanine Aminotransferase 15 U/L (12-78); Albumin Level 3.4 g/dl (3.5-5.0); Albumin/Globulin Ratio 1.1 (1.1-1.8); Alkaline Phosphatase 120 U/L (38-126); Anion Gap 10.1 mEq/L (5-15); Aspartate Amino Transferase 28 U/L (14-36); Bilirubin,Total 0.3 mg/dl (0.2-1.3); Blood Urea Nitrogen 33 mg/dl (7-17); Calcium 8.4 mg/dl (8.4-10.2); Carbon Dioxide 31 mmol/L (22.0-30.0); Chloride 102 mmol/L (98-107); Creatinine Clearance Estimated 17 mL/min (50-200); Estimated Glomerular Filt Rate 21 ml/min (>60); GFR (African American) 26 ML/MIN (>60); Globulin 3.1 g/dL (1.3-3.2); Glucose 114 mg/dl (74-100); Magnesium 2.1 mg/dl (1.6-2.3); Potassium 5.1 mmoL/L (3.5-5.1); Sodium 138 mmol/L (136-145); Total Protein,Serum 6.5 g/dl (6.3-8.2)
--- NOTE | 2023-06-20 07:52 | EXP.ACUTE.PN ---
Subjective *Date: 06/20/23 *Time: 16:18 Interval history: Patient afebrile overnight. No nausea or vomiting. Tolerating diuresis well. Breathing somewhat better. On 9 L supplemental oxygen this morning. Denies any chest pain. Working with therapy Medical Exam Vital signs and Labs for Last 24 Hours: Vital Signs Temp Pulse Pulse Resp BP BP Pulse Ox 06/20/23 06:50 06/20/23 06:36 79 06/20/23 06:36 78 06/20/23 05:00 06/20/23 04:00 97.9 F 77 20 140/73 90 L 06/20/23 04:00 77 06/20/23 03:00 06/20/23 01:00 06/20/23 00:38 80 06/20/23 00:38 85 06/20/23 00:00 97.6 F 87 20 124/67 93 L 06/20/23 00:00 80 06/19/23 23:00 06/19/23 21:00 06/19/23 20:00 95 06/19/23 20:00 99 H 06/19/23 20:00 98.6 F 95 H 17 122/89 95 06/19/23 19:05 62 06/19/23 19:05 69 06/19/23 18:43 06/19/23 18:42 96 06/19/23 18:10 97.6 F 82 22 137/74 90 L 06/19/23 18:00 90 L 06/19/23 17:38 98.1 F 83 22 131/66 06/19/23 16:31 83 22 131/66 98 06/19/23 16:01 88 20 155/68 H 97 06/19/23 15:37 98 06/19/23 15:36 89 L 06/19/23 15:31 21 130/60 96 06/19/23 15:01 80 12 108/62 L 97 06/19/23 14:31 81 20 110/57 L 96 06/19/23 13:55 98.4 F 93 H 18 144/72 H 90 L O2 Del Method O2 Flow Rate 06/20/23 06:50 Nasal Cannula 1 06/20/23 06:36 06/20/23 06:36 06/20/23 05:00 Nasal Cannula 1 06/20/23 04:00 Nasal Cannula 06/20/23 04:00 06/20/23 03:00 Nasal Cannula 1 06/20/23 01:00 Nasal Cannula 1 06/20/23 00:38 06/20/23 00:38 06/20/23 00:00 Nasal Cannula 1 06/20/23 00:00 06/19/23 23:00 Nasal Cannula 2 06/19/23 21:00 Nasal Cannula 2 06/19/23 20:00 Nasal Cannula 2 06/19/23 20:00 06/19/23 20:00 Nasal Cannula 2 06/19/23 19:05 06/19/23 19:05 06/19/23 18:43 Nasal Cannula 1 06/19/23 18:42 Nasal Cannula 1 06/19/23 18:10 Room Air 06/19/23 18:00 Room Air 06/19/23 17:38 Room Air 06/19/23 16:31 Room Air 06/19/23 16:01 Room Air 06/19/23 15:37 Nasal Cannula 2 06/19/23 15:36 Room Air 06/19/23 15:31 Room Air 06/19/23 15:01 Room Air 06/19/23 14:31 Room Air 06/19/23 13:55 Room Air Intake and Output 06/19/23 06/19/23 06/20/23 15:59 23:59 07:59 Intake Total 240 / 240 Output Total 400 / 500 500 / 500 Balance -400 / -260 -260 / -260 Intake: Intake, Oral Amount 240 / 240 Output: Output, Urine Amount 400 / 500 500 / 500 Other: Number of Unmeasured Voids 0 1 Weight 120.202 kg 127.414 kg 127.416 kg Patient Weight 06/20/23 23:59 Weight 127.416 kg Laboratory Results - last 24 hr 06/19/23 14:12: WBC 6.0, RBC 4.37, Hgb 13.8, Hct 44.0, MCV 100.6 H, MCH 31.5 H, MCHC 31.3 L, RDW 12.8, Plt Count 166, MPV 8.4, Neut % (Auto) 62.1, Lymph % (Auto) 28.0, [place] % (Auto) 8.4, Eos % (Auto) 0.7, Baso % (Auto) 0.9, Neut # (Auto) 3.7, Lymph # (Auto) 1.7, [place] # (Auto) 0.5, Eos # (Auto) 0.0, Baso # (Auto) 0.1, PT 10.2, INR 0.94, D-Dimer 1.19 H, Sodium 140, Potassium 4.3, Chloride 102, Carbon Dioxide 31 H, Anion Gap 11.3, BUN 28 H, Creatinine 2.20 H, Estimated Creat Clear 18, Estimated GFR 22 L, Est GFR ( Amer) 27 L, Glucose 96, Calcium 9.0, Magnesium 1.9, Total Bilirubin 0.4, AST 33, ALT 18, Alkaline Phosphatase 156 H, Troponin I < 0.01, NT-Pro-B Natriuret Pep 1320 H, Total Protein 7.4, Albumin 4.1, Globulin 3.3 H, Albumin/Globulin Ratio 1.2 06/19/23 14:21: SARS-CoV-2 (PCR) Not detected, Influenza A Untype (PCR) Not detected, Influenza Type B (PCR) Not detected 06/19/23 14:33: VBG pH 7.26 L, VBG pCO2 66.0 H, VBG pO2 50.3 H, VBG HCO3 29.0, VBG Total CO2 31.0 H, VBG O2 Saturation 86.1 H, VBG Base Excess 2.0 06/19/23 14:38: VBG Lactic Acid 3.0 H 06/19/23 18:40: VBG Lactic Acid 2.9 H 06/19/23 19:09: Troponin I < 0.01 06/19/23 20:25: Troponin I < 0.01 06/19/23 22:40: VBG Lactic Acid 2.0 06/20/23 02:40: VBG Lactic Acid 1.3 06/20/23 05:48: WBC 4.5 L, RBC 4.07 L, Hgb 12.5, Hct 40.0, MCV 98.2, MCH 30.7, MCHC 31.3 L, RDW 13.0, Plt Count 142, MPV 8.9, Neut % (Auto) 74.3, Lymph % (Auto) 19.5, [place] % (Auto) 5.6, Eos % (Auto) 0.2, Baso % (Auto) 0.4, Neut # (Auto) 3.3, Lymph # (Auto) 0.9, [place] # (Auto) 0.3, Eos # (Auto) 0.0, Baso # (Auto) 0.0, Sodium 138, Potassium 5.1, Chloride 102, Carbon Dioxide 31 H, Anion Gap 10.1, BUN 33 H, Creatinine 2.30 H, Estimated Creat Clear 17, Estimated GFR 21 L, Est GFR ( Amer) 26 L, Glucose 114 H, Calcium 8.4, Magnesium 2.1 D, Total Bilirubin 0.3, AST 28, ALT 15, Alkaline Phosphatase 120, Total Protein 6.5, Albumin 3.4 L D, Globulin 3.1, Albumin/Globulin Ratio 1.1 I & O for Labs for Last 24 Hours: Intake & Output 06/17/23 06/18/23 06/19/23 06/20/23 23:59 23:59 23:59 23:59 Intake Total 240 / 240 Output Total 400 / 500 500 / 500 Balance -400 / -260 -260 / -260 Weight 127.414 kg 127.416 kg Constitutional: Present no acute distress, morbidly obese, chronically ill appearing and cooperative Head: Present atraumatic and normocephalic ENT: Present normal exam Neck: Present normal inspection Respiratory: Present crackles (bases) and normal respiratory effort; Absent rhonchi or wheezes Cardiac: Present Reg Rate and Rhythm GI: Present soft and normal bowel sounds; Absent distention or tenderness Extremities: Present normal inspection, full ROM and edema (2+ in BLE to thighs) Skin: Present intact; Absent erythema Comment:: dry, scale on BLE Neuro: Present Grossly Intact, alert, awake, oriented x 3 and moves all extremities Assessment and Plan *Assessment and plan (1) CHF exacerbation: Status: Acute Qualifiers: Heart failure type: unspecified Qualified Code(s): I50.9 - Heart failure, unspecified Category: Medical Code(s): I50.9 - Heart failure, unspecified (2) Acute exacerbation of chronic obstructive pulmonary disease: Status: Acute Category: Medical Code(s): J44.1 - Chronic obstructive pulmonary disease with (acute) exacerbation (3) Chronic kidney disease: Status: Acute Qualifiers: Chronic kidney disease stage: stage 4 (severe) Qualified Code(s): N18.4 - Chronic kidney disease, stage 4 (severe) Category: Medical Code(s): N18.9 - Chronic kidney disease, unspecified (4) Major depression: Status: Chronic Qualifiers: Major depression recurrence: recurrent Active/Remission status: currently active Major depression episode severity: severe Psychotic features: with psychotic features Qualified Code(s): F33.3 - Major depressive disorder, recurrent, severe with psychotic symptoms Category: Medical Code(s): F32.9 - Major depressive disorder, single episode, unspecified (5) Class 3 obesity: Status: Chronic Category: Medical Code(s): E66.9 - Obesity, unspecified Plan 63-year-old female with multiple, these who presents with new oxygen or vent, edema, presentation consistent with CHF and COPD exacerbations. Discussed case with ER, request admission for diuresis, cardiology eval, and echo. Medicine agreed to admit for further management. Tolerating diuresis. Continues to require oxygen, 1 L. Anticipate discharge in the next day or 2. Problems addressed as follows: CHF exacerbation Hypertension - History of diastolic heart failure. EF 55% in 2021. Repeat echo her obtained, [facility] shows elevated RVSP. -Diurese aggressively, Lasix 80 mg IV x 1 in the ER, transition to Bumex 1 mg IV twice daily. Goal output 2 L a day, strict I's and O's -Monitor kidney function closely during admission, creatinine elevated 2.3, appears at baseline. Repeat CBC, CMP, magnesium ordered for the morning -Potassium 5.1, Sodium 138. Mood disorder with major depression: Migraine disorder - Continue complex home regimen including trazodone 100 mg nightly, aripiprazole 5 mg daily, BuSpar 20 mg daily - venlafaxine 75 mg daily, Topamax 50 mg twice daily Hypertension: Continue verapamil 120 mg nightly Seizure disorder: Continue Keppra 500 mg twice daily Restless leg: Continue ropinirole 1 mg daily Tremor: Continue propranolol 20 mg nightly GERD: Continue PPI daily PT and OT working with patient, which safely discharge from the coming home. Full code Cardiac diet lovenox 30mg subcu daily
--- NOTE | 2023-06-20 08:26 | HMH.PHAINT1 ---
Pharmacy Intervention Comments: Verified home medications using external fill history and spoke with patient at bedside.
[2023-06-20] MEDS: VENLAFAXINE XR 75MG CAPSULE 75 MG PO (10:01)
[2023-06-20] MEDS: ENOXAPARIN 30MG/0.3ML SYRINGE 30 MG SQ (10:01)
[2023-06-20] MEDS: BUSPIRONE HCL 10 MG TABLET 20 MG PO (10:01)
[2023-06-20] MEDS: MAGNESIUM OXIDE 400MG TABLET 400 MG PO (10:02)
[2023-06-20] MEDS: TOPIRAMATE 100MG TABLET 50 MG PO ×2 (10:02→20:45)
[2023-06-20] MEDS: levETIRAcetam 500 MG TABLET PO ×2 (10:03→20:44)
[2023-06-20] MEDS: BUMETANIDE 1MG/4ML VIAL 1 MG IV ×2 (10:04→17:05)
[2023-06-20] MEDS: ARIPiprazole 10MG TABLET 5 MG PO (10:04)
--- NOTE | 2023-06-20 11:06 | HMH.OTEV ---
OT Inpatient Evaluation Rehab OT IP Evaluation Start: 06/20/23 07:52 Freq: ONCE Status: Active Protocol: Document 06/20/23 11:00 [facility] (Rec: 06/20/23 11:06 [facility] [id number]) Rehab OT IP Assessment Subjective History Pt oriented x 3 on arrival. Pt agreeable to engage in therapy evaluation. Pt admitted on 06/19/23 due to CHF and COPD. History and PHysical report: Ms. Diaz is a 3-year old female with CKD 4, depression, through BCD, CHF, COPD who presented to the ER with worsening cough, wheeze, chest discomfort for 3 days. Smokes at least a pack a day. States she has been seeing significant swelling in her legs over the past several days to week. Does not wear oxygen at home. Legs have been more heavy. Denies any fever, nausea, vomiting, diarrhea. Said intermittent chest pressure but nothing persistent. Comes intermittently, not brought on by rest or work. Worse with her cough. Initial evaluation in the ER, found to be hypoxic. Initiated on supplemental oxygen. Chest imaging with bibasilar atelectasis, no focal pneumonia. Labs positive for elevated BNP of 1300, troponin less than 0.01. Creatinine elevated at 2.2. Electrolytes normal. White cell count normal at 6. Given oxygen requirement, volume overload, CHF exacerbation concern, ER consulted medicine for further management and admission. Subjective I am tired this morning. Pt reports prior to being in the hospital, pt lived at home with her . Pt reports normally she requires assistance with ADLs such as dressing and bathing. However , she is dependent upon her for completion of all IADLs. Pt normally does not ambulate often, she uses a wheelchair to get around. Pt claims normally she is able to complete stand pivot transfers to and from wheelchair independently. Objective Patient Orientation Person,Place,Birthday Right Upper Extremity Gross ROM WFL Left Upper Extremity Gross ROM WFL Bed Mobility bed mobility-scooting,bed mobility - supine/sit Assist Level Minimal x 1 (25% assist) Transfer Training Sit/Stand Transfer Assist Level Minimal x 2 (25% assist) Rehab OT IP prob,goals,plan Problems Date of Evaluation: 06/20/23 OT IP Problems Bed Mobility,Transfers,Balance ,Self care,Safety Rehab Potential Rehab Potential Good Equipment Needs Assistive Devices Rolling / Wheeled Walker Plan OT intervention Plan Bed Mobility,Transfers,Balance ,Self care,Safety,Therapeutic Exercise OT Plan Frequency Daily Duration LOS Discharge Goals Bed Mobility Ability Standby Assistance Sit to Stand Chair Transfer Ability Minimal x 1 (25% assist) Chair Transfer Ability Minimal x 1 (25% assist) Chair Transfer Technique Sit to/from Ambulatory Chair Transfer Assistive Devices Rolling Walker Feeding Ability Assist with Tray Set Up Lower Body Dressing Ability Minimal Assistance Upper Body Dressing Ability Standby Assistance Bathing Ability Moderate Assistance Performing Toilet Hygiene Ability Minimal Assistance Overall Commode/Toilet Transfer Ability Minimal Assistance Commode/Toilet Transfer Technique Sit to/from Ambulatory Commode/Toilet Transfer Assistive Grab Bars Devices Oral Care Assist Standby Assistance Decrease in Endurance Yes Discharge Plan OT Discharge Plan Pt will continue to be seen for OT services while at [facility]. Pt appears to be close to baseline with functional transfers and ADL independence . Pt can return home with husbands assistance once she is medically stable per physician. Therapist recommends OT evaluation as needed. Eval Complexity Eval Charge Codes 77025 - Moderate Complexity PHYSICIAN CERTIFICATION: I certify the specified therapy services for Destiny Diaz are required, authorized, and reviewed every 30 days.
--- NOTE | 2023-06-20 12:37 | HMH.PTEV ---
Physical Therapy Evaluation Rehab PT IP Evaluation Start: 06/20/23 07:52 Freq: ONCE Status: Active Protocol: Document 06/20/23 12:31 ASHLEY (Rec: 06/20/23 12:36 ASHLEY [email or web address]) Subjective/History History History per H&P: Ms. Diaz is a 3-year old female with CKD 4, depression, through BCD, CHF, COPD who presented to the ER with worsening cough, wheeze, chest discomfort for 3 days. Smokes at least a pack a day. States she has been seeing significant swelling in her legs over the past several days to week. Does not wear oxygen at home. Legs have been more heavy. Denies any fever, nausea, vomiting, diarrhea. Said intermittent chest pressure but nothing persistent. Comes intermittently, not brought on by rest or work. Worse with her cough. Initial evaluation in the ER, found to be hypoxic. Initiated on supplemental oxygen. Chest imaging with bibasilar atelectasis, no focal pneumonia. Labs positive for elevated BNP of 1300, troponin less than 0.01. Creatinine elevated at 2.2. Electrolytes normal. White cell count normal at 6. Given oxygen requirement, volume overload, CHF exacerbation concern, ER consulted medicine for further management and admission. Subjective Subjective PLOF per pt report: Lives at home with . Needs assistance with ADLs. Reports using primarily w/c for mobility. Able to stand and transfer IND. No JANNY single story home. New diagnosis of cancer in past 12 No months? Rehab PT IP Eval Objective Appearance Patient Behavior Appropriate,Cooperative Patient Orientation Person,Place Difficulty following instructions none Speech Pattern Clear Ambulation Patient Able to Ambulate No Balance Ability to Arise Able, uses arms to help Sitting Balance Steady, safe Standing Balance Unsteady Transfers Bed Transfer Ability Minimal x 1 (25% assist) Sit to Stand Bed Transfer Ability Minimal x 2 (25% assist) Rehab PT IP prob,goals,plan Problems Date of Evaluation: 06/20/23 PT IP Problems Bed Mobility,Transfers,Gait, Balance,Safety Rehab Potential Rehab Potential Good Plan PT Intervention Plan Bed Mobility,Transfers,Gait, Balance,Safety,Therapeutic Exercise Other Intervention Plan 1-2 times PT Plan Frequency Daily Duration LOS Discharge Goals Bed Transfer Ability Supervision/Stand by Sit to Stand Chair Transfer Ability Moderate x 1 (50% assist) Ambulation Assistive Device Rolling Walker Discharge Plan PT Discharge Plan Pt safe to d/c home when deemed medically necessary d/t almost baseline mobility, home set-up, and support. PT recommending HH services to address deficits. Pt would benefit from skilled PT while at [facility] to prevent further functional decline and maximize safety with mobility . Eval Complexity Eval Charge Codes 72659 - High Complexity PHYSICIAN CERTIFICATION: I certify the specified therapy services for Destiny Diaz are required, authorized, and reviewed every 30 days.
--- NOTE | 2023-06-20 13:37 | SW/DCPLANNER ---
Addendum entered by Meghan Swain 06/21/23 09:52: Pream w/ [facility] stated they can accept this patient. Addendum entered by Meghan Swain 06/21/23 09:20: Patient information/order has been faxed to [facility]. Addendum entered by Meghan Swain 06/20/23 13:59: Patient and are not interested in SNF at time of discharge. I explained to patient and that we may not be able to established home health services: stated that if we can not find home health he will take care of her. I will continue to follow up w/ patient and until medically stable for discharge. I will set up home health services once medically stable. Original Note: I spoke w/ patient and her regarding plans once medically stable for discharge. Patient is currently established w/ [facility] and they stated they are unable to accept patient back for services due to needing higher level of care. I will relay information to patient and her . PT/OT evaluated patient and stated that she is safe to return home at time of discharge. Discharge date is unknown at this time.
[2023-06-20] MEDS: PROPRANOLOL 20MG TAB 20 MG PO (17:05)
[2023-06-20 17:46] LABS: Chloride 101 mmol/L (98-107); Potassium 4.3 mmoL/L (3.5-5.1); Sodium 137 mmol/L (136-145)
[2023-06-20 17:49] LABS: Anion Gap 4.3 mEq/L (5-15); Blood Urea Nitrogen 38 mg/dl (7-17); Carbon Dioxide 36 mmol/L (22.0-30.0); Creatinine Clearance Estimated 15 mL/min (50-200); Estimated Glomerular Filt Rate 18 ml/min (>60); GFR (African American) 22 ML/MIN (>60)
[2023-06-20 17:50] LABS: Calcium 8.4 mg/dl (8.4-10.2); Glucose 109 mg/dl (74-100)
[2023-06-20] MEDS: NICOTINE 21MG/24HR PATCH 21 MG TD (19:07)
--- NOTE | 2023-06-20 19:10 | PC.NURSE ---
patient remains alert and oriented x4, VSS. Pt remains on 2L NC, 96%. Pure wick in place, pt had 650ml UOP during my shift. Nicotine patch applied at 1908. Pt has been up to chair this afternoon, no complaints from pt, call light within reach.
--- NOTE | 2023-06-20 19:30 | CA_ITS ---
APPROVED REPORT EXAM: Comprehensive 2D, Doppler, and color-flow Echocardiogram Shrimp Peeler: Ade Cervantes CRT Ht: 5 ft 0 in Wt: 280lbs BSA: 2.15 BP: 137/74 mmHg Indications: Congestive Heart Failure, COPD, Peripheral Edema, smoker 2D Dimensions Left Atrium 3.41 cm LVEF (Nielson's) 55.90 % LVOT 1.88 cm (M/F) 1.5-2.5 LV Volume 143.20 mL LA Volume 32.70 mL LA Volume Index 15.20 mL/m2 (M/F) 16-34 EF AP4 52.50 % EF AP2 56.8 % EF BP 55.9 % GL Strain -11.0 % M-Mode Dimensions RVDd 2.71 cm (0.9-2.6) LVDd 5.53 cm (3.5-5.7) Ao Diam 4.27 cm (2.0-3.7) LVDs 3.64 cm (3.5-5.7) IVSd 1.37 cm (0.6-1.1) PWd 0.72 cm (0.6-1.1) EF (Teich) 62.60% FS 34.20% EDV (Teich) 149.30 mL TAPSE 2.35 (<1.7) ESV (Teich) 55.90 mL LV Diastology E Decel Time 247 (160-240 msec) E/A Ratio 0.76 MED E' 6.2 (>= 7 cm/sec) MED A' 15.80 cm/s E'/MED E' Ratio 12.87 (<= 14) LAT E' 9.3 (>= 10 cm/sec) LAT A' 16.10 cm/s E/LAT E' Ratio 8.58 (<= 14) Aortic Valve AoV Peak Dale. 160.0 (50-130 cm/s) AO Peak GR. 10.20 mmHg Mitral Valve MV E Max Dale. 80.0 (40-130 cm/s) MV A Velocity 105.0 (40-130 cm/s) E/A Ratio 0.76 MV Decel. Time 247 (160-240 ms) Tricuspid Valve TR P. Velocity 367.00 cm/s RAP Estimate 10.00 mmHg RVSP 63.80 mmHg Left Ventricle The left ventricle is normal size. The left ventricular systolic function is normal. The left ventricular ejection fraction is within the normal range. Proximal septal thickening is noted. There is normal LV segmental wall motion. Transmitral Doppler flow pattern suggests impaired LV relaxation. LVEF is 55%. Right Ventricle The right ventricle is mildly dilated. The right ventricular systolic function is mildly reduced. Atria The left atrium size is normal. The right atrium size is normal. There is no Doppler evidence of interatrial shunt. Aortic Valve The aortic valve is mildly thickened. There is no aortic valvular stenosis. Trace aortic regurgitation. Mitral Valve The mitral valve leaflets are mildly thickened. No evidence of mitral valve stenosis. Trace mitral regurgitation. Tricuspid Valve The tricuspid valve leaflets are thin and pliable. Trace tricuspid regurgitation. There is insufficient TR jet to estimate RVSP. Pulmonic Valve The pulmonary valve is normal in structure. Trace pulmonic regurgitation. Great Vessels The aortic root is normal in size. The ascending aorta is not well-visualized. The IVC is not well-visualized. Pericardium There is a small sized, anterior pericardial effusion present. The largest pocket measures 0.4 cm in diastole. No evidence of chamber collapse. Other Information Study Quality: Fair Conclusion Normal LV systolic function. Mild RV dilation with mild reduction in RV function. No significant valvular stenosis or regurgitation. Small, anterior pericardial effusion. No echo indications of tamponade. Electronically signed by : Santa Ramos MD 06/23/2023 00:34:15
[2023-06-20] MEDS: PANTOPRAZOLE 40MG TABLET 40 MG PO (20:44)
[2023-06-20] MEDS: TRAZODONE 50MG TABLET 100 MG PO (20:45)
[2023-06-20] MEDS: VERAPAMIL SR 120MG TABLET 120 MG PO (20:45)
[2023-06-20] MEDS: ROPINIROLE 1MG TABLET 1 MG PO (20:45)
--- NOTE | 2023-06-21 02:34 | PC.NURSE ---
PATIENT QUIET. DOES NOT OFFER CONVERSATION UNLESS QUESTIONED. A/O X 4. AFFECT FLAT. 02 IN USE AT 2LNC, 02 SAT 92 % WITH 02. VITALSIGNS STABLE. BREATH SOUND DECREASED THROUGHOUT. CHRONIC LYMPHEDEMA REMAINS IN BLEs. WAS UP IN CHAIR TILL 0100. TOOK 2 ASSIST TO TRANSFER FROM CHAIR TO BED.
[2023-06-21 04:00] VITALS: BP 110/63; PULSE 66; RESP 18; TEMP 36.4; O2SAT 96; BMI 55.1
[2023-06-21] MEDS: IPRATROPIUM/ALBUTEROL 3 ML NEB IH ×2 (06:51→11:47)
[2023-06-21 06:52] VITALS: PULSE 67; O2SAT 95
[2023-06-21 07:40] LABS: Basophils # 0.1 K/mm3 (0-0.2); Basophils % 1.1 % (0.1-2.0); Eosinophils # 0.1 K/mm3 (0.0-0.4); Eosinophils % 1.1 % (0.1-12.0); Hematocrit 39.7 % (37.0-47.0); Lymphocytes # 1.8 K/mm3 (0.7-4.5); Lymphocytes % 37.1 % (10-50); Mean Corpuscular HGB Conc 30.4 g/dL (31.8-35.4); Mean Corpuscular Hemoglobin 30.7 pg (27.0-31.2); Mean Corpuscular Volume 101.1 fl (81-99); Mean Platelet Volume 8.7 fl (7.4-10.4); Monocytes # 0.4 K/mm3 (0.1-1.0); Neutrophils # 2.6 K/mm3 (1.8-7.8); Neutrophils % 52.7 % (37.0-80.0); Platelet Count 133 K/mm3 (142-424); Red Blood Count 3.92 M/mm3 (4.20-5.40); Red Cell Distribution Width 12.7 % (11.5-17.5)
[2023-06-21 07:51] VITALS: O2SAT 85
--- NOTE | 2023-06-21 07:51 | P.DS_ITS ---
General Admission date:: 06/19/23 Discharge date: 06/21/23 HPI HPI HPI: Ms. Diaz is a 3-year old female with CKD 4, depression, through BCD, CHF, COPD who presented to the ER with worsening cough, wheeze, chest discomfort for 3 days. Smokes at least a pack a day. States she has been seeing significant swelling in her legs over the past several days to week. Does not wear oxygen at home. Legs have been more heavy. Denies any fever, nausea, vomiting, diarrhea. Said intermittent chest pressure but nothing persistent. Comes intermittently, not brought on by rest or work. Worse with her cough. Initial evaluation in the ER, found to be hypoxic. Initiated on supplemental oxygen. Chest imaging with bibasilar atelectasis, no focal pneumonia. Labs positive for elevated BNP of 1300, troponin less than 0.01. Creatinine elevated at 2.2. Electrolytes normal. White cell count normal at 6. Given oxygen requirement, volume overload, CHF exacerbation concern, ER consulted medicine for further management and admission. On evaluation after arriving to the floor, patient appears in no acute distress. Has had urine output since receiving diuretics in the ER. Tolerated breathing treatments well with improvement in her shortness of breath. No longer having any chest discomfort. On 1 L nasal cannula oxygen with sats in the mid 90s. Hospital Course Hospital Course Hospital Course: 63-year-old female with multiple, these who presents with new oxygen or vent, edema, presentation consistent with CHF and COPD exacerbations. Discussed case with ER, request admission for diuresis, cardiology eval, and echo. Medicine agreed to admit for further management. Tolerating diuresis. Continues to re quire oxygen, 1 L. Stable for discharge home with home health. Will continue oxygen at discharge. Problems addressed as follows: CHF exacerbation Hypertension - History of diastolic heart failure. EF 55% in 2021. Repeat echo her obtained, preliminary shows elevated RVSP. Diuresed aggressively during admission. Transitioned to oral Bumex at discharge. Kidney function elevated w/ creatinine 2.4 and BUN 44 on day of discharge, within the range of her normal baseline. Electrolytes stable with sodium and potassium in the normal range. Stable to discharge home for further outpatient diuresis. Recommend follow-up with PCP in the next 1 to 2 weeks and repeat labs. Mood disorder with major depression: Migraine disorder - Continue complex home regimen including trazodone 100 mg nightly, aripiprazole 5 mg daily, BuSpar 20 mg daily - venlafaxine 75 mg daily, Topamax 50 mg twice daily Hypertension: Continue verapamil 120 mg nightly Seizure disorder: Continue Keppra 500 mg twice daily Restless leg: Continue ropinirole 1 mg daily Tremor: Continue propranolol 20 mg nightly GERD: Continue PPI daily PT and OT working with patient, will discharge home with home health. Total time spent on discharge 35 minutes in counseling, documentation, chart review, and direct care with patient. Exam Data for Last 24 hours Vital signs and Labs for Last 24 Hours: Temp Pulse Resp BP Pulse Ox O2 Del Method O2 Flow Rate 97.6 F 67 18 110/63 95 Nasal Cannula 2.5 06/21/23 04:00 06/21/23 06:52 06/21/23 04:00 06/21/23 04:00 06/21/23 06:52 06/21/23 06:52 06/21/23 06:52 Laboratory Results - last 24 hr 06/20/23 17:03: Sodium 137, Potassium 4.3, Chloride 101, Carbon Dioxide 36 H, Anion Gap 4.3 L, BUN 38 H, Creatinine 2.60 H, Estimated Creat Clear 15, Estimated GFR 18 L*, Est GFR ( Amer) 22 L, Glucose 109 H, Calcium 8.4 06/21/23 06:40: WBC 5.0, RBC 3.92 L, Hgb 12.0 L, Hct 39.7, MCV 101.1 H, MCH 30.7, MCHC 30.4 L, RDW 12.7, Plt Count 133 L, MPV 8.7, Neut % (Auto) 52.7, Lymph % (Auto) 37.1, Winkler % (Auto) 8.0, Eos % (Auto) 1.1, Baso % (Auto) 1.1, Neut # (Auto) 2.6, Lymph # (Auto) 1.8, Winkler # (Auto) 0.4, Eos # (Auto) 0.1, Baso # (Auto) 0.1 I & O for Last 24 hours: Intake & Output 06/18/23 06/19/23 06/20/23 06/21/23 23:59 23:59 23:59 23:59 Intake Total 1060 / 1300 240 / 240 Output Total 400 / 500 1100 / 1100 0 / 0 Balance -400 / -260 -40 / 200 240 / 240 Weight 127.414 kg 127.416 kg 127.417 kg Constitutional Constitutional: no acute distress, morbidly obese and chronically ill appearing *Routine HEENT Exam Head: Present normocephalic Eye: Present EOMI and PERRL ENT: Present mucous membranes moist *Routine Neck Exam Neck: Present supple; Absent lymphadenopathy *Routine Respiratory Exam Respiratory: Present crackles (bases), distant breath sounds and diminished air movement; Absent rhonchi or wheezes *Routine Cardiovascular Exam Cardiovascular: Present RRR *Routine Abdominal Exam Abdominal: Present soft and normoactive bowel sounds; Absent tenderness *Routine Rectal Exam Patient deferred: visual exam *Routine Exam Patient deferred: external exam *Routine Extremities Exam Extremities: Present edema (2+ in LLE, 1+ in RLE); Absent cyanosis or clubbing *Routine Skin Exam Skin: Present dry and warm; Absent rash *Routine Neurological Exam Neurological: Present alert, oriented X3 and moving all extremities; Absent altered mental status Results Data Completed and Pending Labs on day of discharge: Labs from last 24 hours 06/21/23 06/20/23 06:40 17:03 WBC 5.0 RBC 3.92 L Hgb 12.0 L Hct 39.7 MCV 101.1 H MCH 30.7 MCHC 30.4 L RDW 12.7 Plt Count 133 L MPV 8.7 Neut % (Auto) 52.7 Lymph % (Auto) 37.1 Winkler % (Auto) 8.0 Eos % (Auto) 1.1 Baso % (Auto) 1.1 Neut # (Auto) 2.6 Lymph # (Auto) 1.8 Winkler # (Auto) 0.4 Eos # (Auto) 0.1 Baso # (Auto) 0.1 Sodium 137 Potassium 4.3 Chloride 101 Carbon Dioxide 36 H Anion Gap 4.3 L BUN 38 H Creatinine 2.60 H Estimated Creat Clear 15 Estimated GFR 18 L* Est GFR ( Amer) 22 L Glucose 109 H Calcium 8.4 DS: Diagnosis Discharge Diagnosis (1) CHF exacerbation: Status: Acute Code(s): I50.9 - Heart failure, unspecified Qualifiers: Heart failure type: unspecified Qualified Code(s): I50.9 - Heart failure, unspecified (2) Acute exacerbation of chronic obstructive pulmonary disease: Status: Acute Code(s): J44.1 - Chronic obstructive pulmonary disease with (acute) exacerbation (3) Chronic kidney disease: Status: Acute Code(s): N18.9 - Chronic kidney disease, unspecified Qualifiers: Chronic kidney disease stage: stage 4 (severe) Qualified Code(s): N18.4 - Chronic kidney disease, stage 4 (severe) (4) Major depression: Status: Chronic Code(s): F32.9 - Major depressive disorder, single episode, unspecified Qualifiers: Active/Remission status: currently active Major depression episode severity: severe Major depression recurrence: recurrent Psychotic features: with psychotic features Qualified Code(s): F33.3 - Major depressive disorder, recurrent, severe with psychotic symptoms (5) Class 3 obesity: Status: Chronic Code(s): E66.9 - Obesity, unspecified Meds Home Medications and Allergies Home Medications Medication Instructions Recorded Confirmed Type levetiracetam 500 mg tablet 500 mg PO BID SEIZURES 01/26/21 06/19/23 History magnesium oxide 400 mg (241.3 mg 400 mg PO DAILY Supplement 08/23/21 06/19/23 History magnesium) tablet multivitamin 1 each PO DAILY Supplement 08/23/21 06/19/23 History potassium chloride 10 mEq 10 meq PO BID 08/23/21 06/19/23 History tablet,extended release propranolol 20 mg tablet 20 mg PO 1700 Tremors 08/23/21 06/19/23 History ropinirole 1 mg tablet 1 mg PO DAILY RESTLESS LEG SYNDROME 08/23/21 06/19/23 History sumatriptan succinate 100 mg tablet 100 mg PO NEEDED PRN MIGRAINES 08/23/21 06/19/23 History topiramate 50 mg tablet 50 mg PO BID MIGRAINE 08/23/21 06/19/23 History verapamil 120 mg tablet 120 mg PO HS High blood pressure 08/23/21 06/19/23 History aripiprazole 5 mg tablet 5 mg PO DAILY Mood 08/07/22 06/19/23 History trazodone 100 mg tablet 100 mg PO HS 08/07/22 06/19/23 History budesonide-formoterol HFA 160 2 puff inhalation BID 06/20/23 06/20/23 History mcg-4.5 mcg/actuation aerosol inhaler buspirone 10 mg tablet 20 mg PO DAILY 06/20/23 06/20/23 History cholecalciferol (vitamin D3) 125 125 mcg PO DAILY 06/20/23 06/20/23 History mcg (5,000 unit) capsule ibuprofen 200 mg tablet (Advil) 200 mg PO DAILYP PRN Pain 06/20/23 06/20/23 History omeprazole 40 mg capsule,delayed 40 mg PO DAILY 06/20/23 06/20/23 History release venlafaxine 75 mg tablet 75 mg PO DAILY Mood 06/20/23 06/20/23 History azithromycin 250 mg tablet 500 mg (2 x 250 mg) PO DAILY 2 06/21/23 Rx days #4 tabs furosemide 40 mg tablet 40 mg PO BIDL 30 days #60 tabs 06/21/23 Rx prednisone 20 mg tablet 40 mg (2 x 20 mg) PO DAILY 4 days 06/21/23 Rx #8 tabs New Prescriptions to Start Prescriptions: Michael Pierre furosemide Marly,Michael prednisone Michael Luke Allergies Allergy/AdvReac Type Severity Reaction Status Date / Time Penicillins Allergy Verified 08/06/22 14:11 Discharge Plan Disposition Patient Disposition: Home Health Service Condition: Fair Discharge Order Discharge Orders: Discharge Order (Routine); Ordered 06/21/23 Ordered By: Michael Luke Follow up Plan Follow up with: Zachariah Mercado MD [Primary Care Provider] - 06/26/23 12:15 pm Prescriptions/Medication Reconciliation: New azithromycin 250 mg Tablet 500 mg PO DAILY 2 Days Qty: 4 0RF prednisone 20 mg Tablet 40 mg PO DAILY 4 Days Qty: 8 0RF Continued verapamil 120 MG tablet 120 mg PO HS propranolol 20 MG tablet 20 mg PO 1700 multivitamin 1 EACH tablet 1 each PO DAILY ropinirole 1 MG tablet 1 mg PO DAILY sumatriptan succinate 100 MG tablet 100 mg PO NEEDED PRN (Reason: MIGRAINES) potassium chloride 10 MEQ tablet extended release 10 meq PO BID magnesium oxide 400 MG tablet 400 mg PO DAILY topiramate 50 MG tablet 50 mg PO BID trazodone 100 mg tablet 100 mg PO HS Patient Comments: TAKE TWO TABLETS BY MOUTH EVERY DAY AT BEDTIME MAY CAUSE DROWSINESS aripiprazole 5 mg tablet 5 mg PO DAILY Patient Comments: TAKE ONE TABLET BY MOUTH EVERY DAY buspirone 10 mg tablet 20 mg PO DAILY Patient Comments: TAKE TWO TABLETS BY MOUTH EVERY DAY cholecalciferol (vitamin D3) 125 mcg (5,000 unit) capsule 125 mcg PO DAILY Patient Comments: TAKE ONE CAPSULE BY MOUTH EVERY DAY budesonide-formoterol 160-4.5 mcg/actuation HFA aerosol inhaler 2 puff INHALATION BID Patient Comments: INHALE TWO PUFFS BY MOUTH TWICE DAILY omeprazole 40 mg Capsule,Delayed Release(Dr/Ec) 40 mg PO DAILY ibuprofen [Advil] 200 mg Tablet 200 mg PO DAILYP PRN (Reason: Pain) Rx Instructions: Pt states taking 1-2 tablets per day. venlafaxine 75 mg tablet 75 mg PO DAILY Patient Comments: TAKE ONE TABLET BY MOUTH EVERY DAY levetiracetam 500 MG tablet 500 mg PO BID Changed furosemide 40 mg tablet 40 mg PO BIDL 30 Days Qty: 60 0RF Other Ambulatory Orders: Home Medical Equipment (Routine) Location: None Selected Ordered By: Michael Luke Problem Reconciliation Problems Reviewed?: Yes Patient Discharge Instructions ACTIVITY: Ambulate as tolerated and Up with assistance DIET: continue same diet Patient Instructions: DI for Heart Failure, DI for Chronic Obstructive Pulmonary Disease Providers Primary Care Provider: Zachariah Mercado Admit Provider: Michael Luke Attending Provider: Michael Luke
--- NOTE | 2023-06-21 07:52 | PC.NURSE ---
Patient in 85 % on room air. 2lnc reapplied
[2023-06-21 08:00] VITALS: BP 109/59; PULSE 66; RESP 18; TEMP 36.8; O2SAT 99
[2023-06-21 08:00] LABS: Alanine Aminotransferase 10 U/L (12-78); Albumin Level 3.4 g/dl (3.5-5.0); Albumin/Globulin Ratio 1.2 (1.1-1.8); Alkaline Phosphatase 119 U/L (38-126); Anion Gap 5.6 mEq/L (5-15); Aspartate Amino Transferase 30 U/L (14-36); Bilirubin,Total 0.3 mg/dl (0.2-1.3); Blood Urea Nitrogen 44 mg/dl (7-17); Calcium 8.2 mg/dl (8.4-10.2); Carbon Dioxide 34 mmol/L (22.0-30.0); Chloride 101 mmol/L (98-107); Creatinine Clearance Estimated 16 mL/min (50-200); Estimated Glomerular Filt Rate 20 ml/min (>60); GFR (African American) 25 ML/MIN (>60); Globulin 2.8 g/dL (1.3-3.2); Glucose 87 mg/dl (74-100); Magnesium 2.2 mg/dl (1.6-2.3); Potassium 4.6 mmoL/L (3.5-5.1); Sodium 136 mmol/L (136-145); Total Protein,Serum 6.2 g/dl (6.3-8.2)
[2023-06-21] MEDS: VENLAFAXINE XR 75MG CAPSULE 75 MG PO (08:20)
[2023-06-21] MEDS: TOPIRAMATE 100MG TABLET 50 MG PO (08:21)
[2023-06-21] MEDS: levETIRAcetam 500 MG TABLET PO (08:23)
[2023-06-21] MEDS: MAGNESIUM OXIDE 400MG TABLET 400 MG PO (08:23)
[2023-06-21] MEDS: ARIPiprazole 10MG TABLET 5 MG PO (08:23)
[2023-06-21] MEDS: ENOXAPARIN 30MG/0.3ML SYRINGE 30 MG SQ (08:24)
[2023-06-21] MEDS: BUMETANIDE 1MG/4ML VIAL 1 MG IV (08:24)
[2023-06-21] MEDS: BUSPIRONE HCL 10 MG TABLET 20 MG PO (08:24)
--- NOTE | 2023-06-21 09:54 | CARE MANAGER ---
Patient will require O2 at home. RA sat 85% at rest. Patient chose [facility] as provider. Information faxed. RIOS Sibley
[2023-06-21] MEDS: predniSONE 20MG TAB 40 MG PO (10:05)
[2023-06-21] MEDS: AZITHROMYCIN 250MG TABLET 500 MG PO (10:05)
--- NOTE | 2023-06-25 09:29 | CARE MANAGER ---
Attempted post-discharge follow-up phone call, no answer. Voicemail was left on [phone].
--- NOTE | 2023-06-25 09:34 | CARE MANAGER ---
Spoke with patient regarding recent discharge from [facility], reminded her of follow-up appointment with Dr. Mercado on 06/26/23. She states that she has it down and will go to the appointment. No issues noted.
== END 2023-06-21 13:47 | disposition home health service (06) | DRG 291 ==
LOC: ER 15:26 → 2ND 17:18
PROVIDERS: Physician Assistant; Admitting Provider Internal Medicine Adolescent Medicine; Emergency Provider Emergency Medicine; PCP Internal Medicine Adolescent Medicine; Visit Provider Internal Medicine Adolescent Medicine
DX: I13.0 Hypertensive heart and chronic kidney disease with heart failure and stage 1 through stage 4 chronic kidney disease, or unspecified chronic kidney disease (principal); I50.33 Acute on chronic diastolic (congestive) heart failure; J96.01 Acute respiratory failure with hypoxia; J44.1 Chronic obstructive pulmonary disease with (acute) exacerbation; F33.3 Major depressive disorder, recurrent, severe with psychotic symptoms; N18.4 Chronic kidney disease, stage 4 (severe); Z68.43 Body mass index [BMI] 50.0-59.9, adult; E66.9 Obesity, unspecified; G40.909 Epilepsy, unspecified, not intractable, without status epilepticus; F17.210 Nicotine dependence, cigarettes, uncomplicated; R25.1 Tremor, unspecified; K21.9 Gastro-esophageal reflux disease without esophagitis
CPT/HCPCS: 36415; 71045; 80048; 80053; 82803; 83605; 83735; 83880; 84484; 85025; 85378; 85610; 87636; 93005; 93306; 94640; 94761; 97110; 97163; 97166; 97530; 99291; J0131

== ENCOUNTER 2023-07-04 14:56 | Outpatient (CLI) | payer MEDICARE, MEDICAID, SELFPAY ==
--- NOTE | 2023-07-04 15:06 | XR_ITS ---
FINAL REPORT CLINICAL HISTORY: right knee pain FINDINGS: RIGHT KNEE 3 views of the right knee were obtained. There is no acute fracture or dislocation. There are moderate degenerative changes. Medial compartment joint space narrowing is seen. Visualized joint spaces are normally aligned. Soft tissues are unremarkable. IMPRESSION: No acute bony abnormality. Reviewed, Interpreted and Dictated by Levar Shah III, MD Transcribed by Lynnette Lopez Authenticated and [facility]
--- NOTE | 2023-07-04 15:06 | XR_ITS ---
FINAL REPORT CLINICAL HISTORY: left knee pain FINDINGS: LEFT KNEE: 3 views of the left knee were obtained. There is no acute fracture or dislocation. There are moderate degenerative changes. Medial compartment joint space narrowing is seen. Visualized joint spaces are normally aligned. Soft tissues are unremarkable. IMPRESSION: No acute bony abnormality. Reviewed, Interpreted and Dictated by Levar Shah III, MD Transcribed by Lynnette Lopez Authenticated and [facility]
== END 2023-07-04 23:59 ==
LOC: RAD 14:58
PROVIDERS: PCP Internal Medicine Adolescent Medicine; Visit Provider Orthopaedic Surgery
DX: M25.562 Pain in left knee (principal); M25.561 Pain in right knee
CPT/HCPCS: 73562

== ENCOUNTER 2023-08-08 23:45 | Inpatient (IN) | payer MEDICARE, MEDICAID, SELFPAY ==
[2023-08-08 23:45] VITALS: BP 128/81; PULSE 90; RESP 30; TEMP 36.9; O2SAT 94; BMI 62.4
--- NOTE | 2023-08-08 23:46 | XR_ITS ---
PROCEDURE INFORMATION: Exam: XR Chest Exam date and time: 08/09/2023 12:21 AM Age: 63 years old Clinical indication: Cough and shortness of breath; Additional info: SOA, rales, cough TECHNIQUE: Imaging protocol: Radiologic exam of the chest. Views: 1 view. COMPARISON: No relevant prior studies available. FINDINGS: Lungs: There is mild coarsening of the bronchovascular markings with hyperinflation suggesting underlying obstructive airways disease. Pleural spaces: No large effusion or pneumothorax. Heart/Mediastinum: No evidence of mediastinal widening or cardiac silhouette enlargement; the mediastinum and heart appear within normal limits for contour and size. Vasculature: There are calcifications of the aortic arch. Bones/joints: No evidence of acute osseous abnormalities within the visualized portions of the thoracic spine and ribs. Osseous structures appear appropriate for patient age. IMPRESSION: No dense parenchymal consolidation, pleural effusion, or pneumothorax.
--- NOTE | 2023-08-08 23:46 | CT_ITS ---
PROCEDURE INFORMATION: Exam: CTA Chest With Contrast Exam date and time: 08/09/2023 1:38 AM Age: 63 years old Clinical indication: Cough and shortness of breath; Additional info: SOA, rales, cough, hypoxia TECHNIQUE: Imaging protocol: Computed tomographic angiography of the chest with contrast. Exam focused on the arteries. 3D rendering (Not supervised by radiologist): MIP and/or 3D reconstructed images were created by the technologist. Radiation optimization: All CT scans at this facility use at least one of these dose optimization techniques: automated exposure control; mA and/or kV adjustment per patient size (includes targeted exams where dose is matched to clinical indication); or iterative reconstruction. Contrast material: ISOVUE; Contrast route: INTRAVENOUS (IV); COMPARISON: CR XR CHEST PORTABLE 08/09/2023 12:21 AM FINDINGS: Limitations: No significant contrast enhancement is seen. Pulmonary arteries: No pulmonary emboli. Aorta: No aortic aneurysm. No aortic dissection. Lungs: No acute consolidation or airspace disease. Mild atelectasis Chronic appearing peripheral interstitial changes. Pleural spaces: No pneumothorax. No pleural effusion. Heart: No cardiomegaly. No pericardial effusion. Lymph nodes: No pathologically enlarged lymph nodes. Gallbladder and bile ducts: The patient is status post cholecystectomy. Bones/joints: Dextrocurvature of the thoracic spine is noted with multilevel moderate degenerative changes. Chronic appearing left-sided rib deformities in the 10th and 11th ribs. Advanced degenerative changes in the bilateral glenohumeral joints. Soft tissues: No acute findings. IMPRESSION: 1. Limited evaluation for pulmonary embolus secondary to contrast extravasation. 2. No acute consolidation. Mild atelectasis. Chronic appearing peripheral interstitial changes.
[2023-08-08 23:47] VITALS: BP 128/81
--- NOTE | 2023-08-08 23:48 | ECG_ITS ---
APPROVED REPORT Exam: Resting ECG HR:88 bpm ECG Measurements Heart Rate [address] 176 P 70 QRSd 90 QRS 114 QT 363 T 56 QTc 409 Conclusion SINUS RHYTHM POSSIBLE RIGHT VENTRICULAR HYPERTROPHY [SOME/ALL OF: PROMINENT R IN V1, LATE TRANSITION, RAD, CALI, SSS] ABNORMAL ECG No STEMI Electronically signed by : LUIS CARLOS CORCORAN, 08/09/2023 05:11:21
--- NOTE | 2023-08-08 23:48 | [facility].EDCP ---
Discharge Plan Disposition Patient Disposition: Admitted Referrals Follow up/Referrals: Zachariah Mercado MD [Primary Care Provider] - See instructions Clinical Impressions Clinical Impression: Acute exacerbation of chronic obstructive pulmonary disease (COPD), Hypercarbia, Acute respiratory acidosis Discharge ED Provider: Noelle Earl General Chief Complaint: Shortness of Breath/Dyspnea Stated Complaint: SOA Time Seen by Provider: 08/08/23 23:46 History of Present Illness HPI narrative: 63-year-old female with history of obesity, lymphedema, heart failure who states she takes inhalers but has not taken them since yesterday presents to the ER with concerns of chest pain and shortness of breath. Patient reportedly wears 2 L nasal cannula at home at baseline. She lives at home with her who cares for her. Patient states she started having chest pain earlier today. Patient has also been having a dry cough. She reports subjective fevers. EMS was called this evening and found her at 74% on room air. Patient was placed on nonrebreather, they were unable to obtain IV access so patient did not receive any medications in route. Patient's oxygenation improved to 100% on nonrebreather. Patient states she does take a water pill. Related Data Allergies Allergy/AdvReac Type Severity Reaction Status Date / Time Penicillins AdvReac Verified 08/09/23 00:55 [facility] Disclaimer: The information contained in this section may have been updated after the patient was seen, as this information can be updated by other users. Social History Smoking Status: Current every day smoker alcohol intake: never current occupational status: other Travel in the last 8 weeks: None ROS Obtained: Yes All systems reviewed & no additional complaints except as documented Constitutional Constitutional: Denies chills, Reports fever(s), Denies headache(s) and Denies weakness Eyes Eyes: Denies change in vision ENT Ears, Nose, Mouth, and Throat: Denies dizziness, Denies headache(s), Denies nasal congestion and Denies sore throat Cardiovascular Cardiovascular: Reports chest pain, Reports dyspnea, Reports edema and Reports leg edema Respiratory Respiratory: Reports cough and Reports dyspnea Gastrointestinal Gastrointestingal: Denies constipation, diarrhea, nausea or vomiting Genitourinary Female Genitourinary: Denies dysuria Musculoskeletal Musculoskeletal: Denies arthralgias, Denies myalgias, Denies numbness and Denies tingling Integumentary/Breasts Skin/Breast: Denies change in pigmentation Neurologic Neurologic: Denies dizziness, Denies headache(s), Denies numbness, Denies tingling and Denies weakness Physical Exam General General appearance: alert and in distress (Obvious increased work of breathing) Comment: Chronically ill-appearing Head Head exam: atraumatic and normocephalic Eye Eye exam: Present PERRL and EOMI ENT ENT exam: Present mucous membranes moist Neck Neck exam: Present normal inspection and full ROM Chest Chest inspection: Present symmetric chest wall rise Respiratory Respiratory exam: Present wheezes, prolonged expiratory phase and other (Breath sounds diminished in all lung santos, wheezes throughout, Rales at bilateral bases); Absent stridor Cardiovascular Cardiovascular exam: Present regular rate and normal rhythm Abdominal Exam Abdominal exam: Present soft; Absent distention or tenderness Extremities Exam Extremities exam: Present full ROM and edema (Bilateral lower extremity pitting edema, worse on the left than the right) Neurological Exam Neurological exam: Present alert and oriented X3; Absent motor sensory deficit Psychiatric Psychiatric exam: Present normal affect and normal mood Skin Skin exam: Present warm, dry and rash (Erythematous patch with few punctate satellite lesions in the right axilla, under the left inframammary fold) HEART Score HEART Score HEART Score assessment performed?: Yes History (anamnesis): Slightly suspicious ECG: Non-specific disturbance Age: >65 years Risk factors: 3 or more risk factors Troponin: </= normal limit HEART Score: 5 Procedures Central Line Placement Left IJ: Time Out Performed: Yes Patient Placed on Monitor/Pulse Ox: Yes MD Prep: mask, gown, gloves and other (Bouffant) Central Line Prep: Chlorhexidine scrub (x2) and sterile drapes applied Local Anesthetic: lidocaine 1% Amount of anesthesia used (mL): 4 Ultrasound Used for Placement: Yes Central Line Lumen Inserted: triple Post Procedure: sutured in place, good blood return, all ports aspirated, flushed, capped and sterile dressing applied (Biopatch, Tegaderm) Post Procedure X-Ray: tip of catheter in good position and no pneumothorax seen Patient Tolerated Procedure: well Complications: none Additional Comments: Patient consented for procedure. Risks and benefits discussed. Catheter was placed successfully, patient had extremely tough tissues and it was difficult to enter the vessel wall, however this was done successfully. This was done under ultrasound guidance, wire also confirmed within the IJ prior to dilation and placement of the catheter. Procedure was done with patient partially upright due to her respiratory concerns. Patient not experience any hypoxia or other complications during the procedure. Critical Care Critical Care Time Critical Care Time: Yes Attestation: On , the high probability of a clinically significant, sudden or life threatening deterioration of the following system(s) (respiratory, cardiac) required my full and direct attention, intervention and personal management. The time I documented below is in addition to time spent performing reported procedures but includes the following listed in this critical care notation. Total Time Total Critical Care Time: 65 Medical Decision Making Harjinder Inquiry Pt receiving controlled substance: No Vital Signs Vital Signs: 08/08/23 23:45 08/08/23 23:47 08/09/23 00:00 Temperature 98.5 F Temperature Source Oral Pulse Rate 86 Pulse Rate [Right Radial] 90 Respiratory Rate 30 H Blood Pressure 128/81 Blood Pressure [Right Arm] 128/81 Blood Pressure Mean 97 Blood Pressure Mean [Right Arm] 96 Blood Pressure Source Blood Pressure Position 02 Sat by Pulse Oximetry 94 L Oxygen Delivery Method Non-Rebreather Oxygen Flow Rate (LPM) 10 08/09/23 00:25 08/09/23 00:56 08/09/23 02:51 Temperature Temperature Source Pulse Rate 96 H 92 H Pulse Rate [Right Radial] Respiratory Rate Blood Pressure Blood Pressure [Right Arm] Blood Pressure Mean 219 Blood Pressure Mean [Right Arm] Blood Pressure Source Blood Pressure Position 02 Sat by Pulse Oximetry Oxygen Delivery Method Oxygen Flow Rate (LPM) 08/09/23 02:54 08/09/23 03:32 08/09/23 03:41 Temperature Temperature Source Pulse Rate 93 H 95 H Pulse Rate [Right Radial] Respiratory Rate Blood Pressure 145/75 H Blood Pressure [Right Arm] Blood Pressure Mean 225 Blood Pressure Mean [Right Arm] Blood Pressure Source Manual Cuff/ Auscultation Blood Pressure Position Supine 02 Sat by Pulse Oximetry 98 Oxygen Delivery Method BiPAP Oxygen Flow Rate (LPM) 08/09/23 04:26 Temperature Temperature Source Pulse Rate 94 H Pulse Rate [Right Radial] Respiratory Rate Blood Pressure 120/70 Blood Pressure [Right Arm] Blood Pressure Mean Blood Pressure Mean [Right Arm] Blood Pressure Source Automatic Cuff Blood Pressure Position Supine 02 Sat by Pulse Oximetry 91 L Oxygen Delivery Method BiPAP Oxygen Flow Rate (LPM) Lab Data Labs: Lab Results 08/08/23 23:46: VBG pH 7.24 L, VBG pCO2 72.9 H, VBG pO2 196.2 H, VBG HCO3 30.5 H, VBG Total CO2 32.8 H, VBG O2 Saturation 99.1 H, VBG Base Excess 3.1 H, VBG Lactic Acid 0.9 08/09/23 00:01: Sodium 142, Potassium 5.3 H, Chloride 104, Carbon Dioxide 36 H, Anion Gap 7.3, BUN 40 H, Creatinine 2.30 H, Estimated Creat Clear 18, Estimated GFR 21 L, Est GFR ( Amer) 26 L, Glucose 108 H, Calcium 8.8, Total Bilirubin 0.4, AST 32, ALT 15, Alkaline Phosphatase 139 H, Troponin I < 0.01, NT-Pro-B Natriuret Pep 7950 H, Total Protein 6.9, Albumin 3.7, Globulin 3.2, Albumin/Globulin Ratio 1.2 08/09/23 01:07: WBC 4.7 L, RBC 4.19 L, Hgb 12.8, Hct 43.3, MCV 103.4 H, MCH 30.7, MCHC 29.6 L, RDW 14.5, Plt Count 137 L, MPV 8.4, Neut % (Auto) 69.2, Lymph % (Auto) 23.1, [place] % (Auto) 6.6, Eos % (Auto) 0.4, Baso % (Auto) 0.7, Neut # (Auto) 3.3, Lymph # (Auto) 1.1, [place] # (Auto) 0.3, Eos # (Auto) 0.0, Baso # (Auto) 0.0, Lactate 0.8 08/09/23 02:24: Urine Color Yellow, Urine Appearance Clear, Urine pH 5.5, Ur Specific Berger 1.025, Urine Protein Negative, Urine Glucose (UA) Negative, Urine Ketones Negative, Urine Blood Negative, Urine Nitrate Negative, Urine Bilirubin Negative, Urine Urobilinogen 0.2, Ur Leukocyte Esterase Negative, Urine RBC None, Urine WBC Occasional, Ur Squamous Epith Cells 3-5, Urine Bacteria Trace 08/09/23 02:48: VBG pH 7.17 L, VBG pCO2 78.8 H, VBG pO2 109.7 H, VBG HCO3 28.0, VBG Total CO2 30.4 H, VBG O2 Saturation 97.8 H, VBG Base Excess -0.6, VBG Lactic Acid 1.0 08/09/23 03:09: Troponin I < 0.01 08/09/23 03:53: VBG pH 7.19 L, VBG pCO2 66.1 H, VBG pO2 50.8 H, VBG HCO3 24.7, VBG Total CO2 26.8, VBG O2 Saturation 86.2 H, VBG Base Excess -3.4 L, VBG Lactic Acid 1.5 08/09/23 01:07 08/09/23 00:01 Response Orders (Tests/Meds): ED MEDICATIONS Generic Name Dose Route Start Last Admin Trade Name Freq PRN Reason Stop Dose Admin Heparin Sodium (Porcine) 5,000 unit 08/09/23 04:15 Heparin Sodium 5,000 Unit/Ml Vial SQ 09/08/23 04:14 Q8H CARLY Morphine Sulfate 4 mg 08/09/23 04:14 Morphine 4mg/Ml Syringe IV 09/08/23 04:13 Q4HP PRN Severe Pain (7-10) Ondansetron HCl 4 mg 08/09/23 04:14 Ondansetron 4mg/2ml Vial IV 09/08/23 04:13 Q8HP PRN Nausea Pantoprazole Sodium 40 mg 08/09/23 21:00 Pantoprazole 40mg Vial IV 09/08/23 20:59 HS [facility] Discontinued Medications Generic Name Dose Route Start Last Admin Trade Name Freq PRN Reason Stop Dose Admin Albuterol Sulfate 20 mg 08/09/23 00:29 08/09/23 00:42 Albuterol 0.083% 2.5 Mg/3 Ml [facility] 08/09/23 00:30 20 mg ONCE ONE Administration Albuterol Sulfate 20 mg 08/09/23 00:51 08/09/23 00:52 Albuterol 0.083% 2.5 Mg/3 Ml [facility] 08/09/23 00:52 20 mg ONCE ONE Administration Albuterol/Ipratropium 9 ml 08/08/23 23:46 08/09/23 00:00 Ipratropium/Albuterol 3 Ml [facility] 08/08/23 23:47 9 ml ONCE ONE Administration Fentanyl Citrate 50 mcg 08/09/23 04:11 08/09/23 04:13 Fentanyl 100mcg/2ml Vial IV 08/09/23 04:12 50 mcg ONCE ONE Administration Ceftriaxone Sodium 1 gm/ 50 mls @ 100 mls/hr 08/09/23 00:26 08/09/23 02:53 Sodium Chloride IV 08/09/23 00:55 100 mls/hr ONCE ONE Administration Azithromycin 500 mg/ Sodium 250 mls @ 250 mls/hr 08/09/23 00:29 08/09/23 03:00 Chloride IV 08/09/23 00:30 250 mls/hr ONCE ONE Administration Lactated Ringer's 500 mls @ 999 mls/hr 08/09/23 03:46 08/09/23 03:54 Lactated Ringer's 500ml IV 08/09/23 04:16 999 mls/hr .Q31M ONE Administration Levetiracetam 500 mg/ Sodium 105 mls @ 210 mls/hr 08/09/23 03:52 08/09/23 04:14 Chloride IV 08/09/23 03:53 210 mls/hr ONCE ONE Administration Iopamidol 70 ml 08/09/23 02:50 08/09/23 02:51 Iopamidol-370 (76%);100ml Bottle IV 08/09/23 02:51 70 ml ONCE ONE Administration Methylprednisolone Sodium Succinate 125 mg 08/09/23 00:25 08/09/23 01:01 Methylprednisolone Sod Succ 125mg Vial IV 08/09/23 00:26 125 mg ONCE ONE Administration Sodium Chloride 50 ml 08/09/23 02:50 08/09/23 02:52 0.9 % Sodium Chloride 50 Ml Vial IV 08/09/23 02:51 50 ml ONCE ONE Administration Sodium Chloride 10 ml 08/09/23 02:50 08/09/23 02:52 Sodium Chloride 0.9% 10ml Syr (Rad Only) IV 08/09/23 02:51 10 ml ONCE ONE Administration ORDERS Category Date Time Status CT angio chest PE protocol Stat Cat Scan 08/08/23 23:46 Completed Pulmonology Consult [Consult to Pulmonology] [CONS] Cons 08/09/23 04:14 Active Routine CXR --portable [XR chest portable] Stat Exams 08/08/23 23:46 Completed Chest XR -- portable [XR chest portable] Stat Exams 08/09/23 02:43 Completed BNP [NT Pro Brain Natriuretic Pep.] Stat Lab 08/08/23 23:48 Completed CBC w/Auto Diff [Complete Blood Count Auto Diff] Stat Lab 08/08/23 23:46 Completed CMP [Comprehensive Metabolic Panel] Stat Lab 08/08/23 23:46 Completed Complete Blood Count Auto Diff AMLAB Lab 08/09/23 06:00 Ordered Comprehensive Metabolic Panel AMLAB Lab 08/09/23 06:00 Ordered Lactic Acid Stat Lab 08/08/23 23:46 Completed Magnesium AMLAB Lab 08/09/23 06:00 Ordered Trop I [Troponin I] Stat Lab 08/08/23 23:46 Completed Troponin I Q3H Lab 08/09/23 03:09 Completed Troponin I Q3H Lab 08/09/23 06:00 Ordered Urinalysis and Microscopic Stat Lab 08/09/23 02:24 Completed VBG [Venous Blood Gas] Stat RT 08/08/23 23:46 Completed VBG [Venous Blood Gas] Stat RT 08/09/23 03:53 Completed Venous Blood Gas Stat RT 08/09/23 02:48 Completed MDM Narrative Medical Decision Narrative: In summary, this 63year old female presents to the emergency department today with chest pain, shortness of breath, fever, cough. On initial evaluation patient is hemodynamically stable, afebrile, she is hypoxic requiring nonrebreather on arrival, tachypnea, bilaterally diminished breath sounds with wheezes and rales at the bases, peripheral edema present. Differential diagnosis includes but is not limited to pneumonia, COPD exacerbation, heart failure exacerbation, fluid overload, I considered the possibility of sepsis but patient is not tachycardic or hypotensive, labs pending, also considered possibility of pneumothorax, ACS, PE. Based on these concerns, I ordered broad workup including CTA PE, cardiac workup, chest x-ray, metabolic panel, VBG. ECG personally interpreted demonstrates normal sinus rhythm, rate 88, normal axis, normal intervals, no STEMI. Patient received DuoNebs initially for treatment. Labs were personally reviewed. Initial blood gas according to nursing was likely arterial, pH 7.24, significant hypercarbia with pCO2 72.9. Patient started on BiPAP 28/11. XR personally interpreted demonstrates bilateral lower lobe infiltrates versus edema, see radiology read. Based on her clinical presentation with findings of COPD exacerbation and fluid overload with subjective fever at home, I am going to treat this as pneumonia with Rocephin and azithromycin. Patient is also receiving Solu-Medrol for COPD exacerbation. Patient was started on BiPAP but did not tolerate it, she became more hypoxic than she was on nonrebreather. She was switched back to nonrebreather and continuous albuterol treatment was started. Additional labs resulted demonstrate patient has significant underlying kidney disease. I was able to find patient's merged chart which demonstrates this is a baseline problem for her, her GFR today is similar to prior. I do believe patient requires contrasted exam though there is a chance for contrast-induced nephropathy. At this time I believe it is clinically significant to be able to identify intrathoracic pathology including pulmonary embolism because patient is having difficulties with oxygenation though she is not significantly tachycardic or hypotensive. Patient received contrast bolus but unfortunately had contrast extravasation. Ice was applied to the area. She has not had any distal neurovascular changes. We are having significant difficulties with IV access and IVs blowing, so I decided to place central line. See procedure note for details. CT chest interpretation was limited secondary to lack of contrast due to extravasation, however on my personal interpretation of the exam patient does not have obvious consolidation, she does have atelectasis, some interstitial changes, no other obvious acute intrathoracic abnormality. See radiology read for full interpretation. With initial troponin being less than 0.01, patient not having hypotension or tachycardia over 100, and is now having improved oxygenation, I have significantly decreased concern for hemodynamically significant PE at this time. I do not believe she requires contrasted scan. Further labs were reviewed, patient actually has mild leukopenia, on review of her other chart, she has previously had WBC of 5.0, today 4.7, no significant change, she also has slight hyperkalemia but she did not have any hyperacute changes on her ECG, initial troponin less than 0.01. BNP elevated to 7950. No previous BNP for comparison. On comparison to previous chest x-ray, the infiltrate present today is not significantly worse so since she received contrast and already has kidney dysfunction, I am not going to aggressively diurese her at this time. I am going to give her 500 mL fluid bolus to help flush the contrast from her system. Patient received Keppra in the ED because this is a daily baseline medication for her history of seizures. Patient has had tremors while in the ER, but she states these are baseline. 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 Repeat VBG after IJ was placed demonstrates worsening pH and hypercarbia. This is due to not having positive pressure due to lack of toleration of the BiPAP and inability to be on BiPAP while undergoing procedure. We now have better access on the patient and have had better success with continued oxygen monitoring. I again attempted placing the patient on BiPAP. She is currently on BiPAP 16/8, 30% FiO2 and tolerating it well with good oxygenation around 93-95%. Chest x-ray personally interpreted after left IJ placement does not demonstrate any new acute intrathoracic abnormality, no pneumothorax, left IJ CVC appears in appropriate position. See radiology read for final interpretation. Patient completed continuous albuterol treatment. Patient had been tolerating BiPAP for over 30 minutes a repeat VBG was sent again to assess her acidosis and hypercarbia. This demonstrates that patient is now having improvement in her pH and her hypercarbia. pH is up to 7.19 from 7.16, pCO2 down to 66.1 from 78.8. Patient did have an episode of desaturation again, I believe she has mucous plugging because I removed the circuit and had her cough, replace the BiPAP, and she quickly had improvement in her oxygenation again. I did increase her FiO2 to 35%. Due to concerns for mucous plugging, contacted respiratory therapy and discussed saline nebs and suction. Patient requires admission due to her significant burden of disease, needing BiPAP, and persistent hypercarbia and acidosis though they are improving. I discussed this patient with the hospitalist, we reviewed her labs, imaging, current status. She has been accepted for admission.
[2023-08-09] VITALS (30 sets, daily range): BP systolic 103–169; BP diastolic 36–80; PULSE 79–104; RESP 14–27; TEMP 36.7–37.4; O2SAT 90–98; BMI 62.7
[2023-08-09] MEDS: IPRATROPIUM/ALBUTEROL 3 ML NEB 9 ML IH
--- NOTE | 2023-08-09 | PC.NURSE ---
audiovisual lead technician notified RN with IV extravasation from 20G right A/C IV with contrast. notified. IV removed, Ice pack placed in area at this time.
[2023-08-09 00:15] LABS: Lactate Venous 0.9 mmol/L (0.4-2.0); VBG Base Excess 3.1 mmol/L (-2.4-2.3); VBG HCO3 30.5 mmol/L (23-30); VBG Oxygen Saturation 99.1 % (50-70); VBG PH 7.24 mmol/L (7.31-7.41); VBG PO2 196.2 mmol/L (28-40); VBG Total CO2 32.8 mmol/L (23-27)
[2023-08-09 00:16] LABS: VBG PCO2 72.9 mmol/L (35-51)
[2023-08-09] MEDS: ALBUTEROL 0.083% 2.5 MG/3 ML NEB 20 MG IH ×2 (00:42→00:52)
[2023-08-09 00:54] LABS: Alanine Aminotransferase 15 U/L (12-78); Albumin Level 3.7 g/dl (3.5-5.0); Albumin/Globulin Ratio 1.2 (1.1-1.8); Alkaline Phosphatase 139 U/L (38-126); Anion Gap 7.3 mEq/L (5-15); Aspartate Amino Transferase 32 U/L (14-36); Bilirubin,Total 0.4 mg/dl (0.2-1.3); Blood Urea Nitrogen 40 mg/dl (7-17); Calcium 8.8 mg/dl (8.4-10.2); Carbon Dioxide 36 mmol/L (22.0-30.0); Chloride 104 mmol/L (98-107); Creatinine Clearance Estimated 18 mL/min (50-200); Estimated Glomerular Filt Rate 21 ml/min (>60); GFR (African American) 26 ML/MIN (>60); Globulin 3.2 g/dL (1.3-3.2); Glucose 108 mg/dl (74-100); Potassium 5.3 mmoL/L (3.5-5.1); Sodium 142 mmol/L (136-145); Total Protein,Serum 6.9 g/dl (6.3-8.2)
--- NOTE | 2023-08-09 00:59 | PC.NURSE ---
Lab bedside to collect blood cultures and Lactic
[2023-08-09] MEDS: METHYLPREDNISOLONE SOD SUCC 125MG VIAL 125 MG IV (01:01)
[2023-08-09 01:04] LABS: NT Pro Brain Natriuretic Pep. 7950 pg/mL (0-125)
[2023-08-09 01:06] LABS: Troponin I < 0.01 ng/ml (0.00-0.034)
[2023-08-09 01:27] LABS: Lactic Acid 0.8 mmol/L (0.7-2.1)
[2023-08-09 01:28] LABS: Basophils % 0.7 % (0.1-2.0); Eosinophils % 0.4 % (0.1-12.0); Hematocrit 43.3 % (37.0-47.0); Hemoglobin 12.8 g/dL (12.2-16.2); Lymphocytes # 1.1 K/mm3 (0.7-4.5); Lymphocytes % 23.1 % (10-50); Mean Corpuscular HGB Conc 29.6 g/dL (31.8-35.4); Mean Corpuscular Hemoglobin 30.7 pg (27.0-31.2); Mean Corpuscular Volume 103.4 fl (81-99); Mean Platelet Volume 8.4 fl (7.4-10.4); Monocytes # 0.3 K/mm3 (0.1-1.0); Monocytes % 6.6 % (1.7-9.3); Neutrophils # 3.3 K/mm3 (1.8-7.8); Neutrophils % 69.2 % (37.0-80.0); Platelet Count 137 K/mm3 (142-424); Red Blood Count 4.19 M/mm3 (4.20-5.40); Red Cell Distribution Width 14.5 % (11.5-17.5); White Blood Count 4.7 K/mm3 (4.8-10.8)
--- NOTE | 2023-08-09 01:45 | PC.NURSE ---
pts IV infiltrated while receiving IV contrast
--- NOTE | 2023-08-09 02:43 | XR_ITS ---
PROCEDURE INFORMATION: Exam: XR Chest Exam date and time: 08/09/2023 2:42 AM Age: 63 years old Clinical indication: Device placement; Other: Line placement TECHNIQUE: Imaging protocol: Radiologic exam of the chest. Views: 1 view. COMPARISON: CT ANGIO CHEST PE PROTOCOL 08/09/2023 1:38 AM FINDINGS: Tubes, catheters and devices: Left IJ central venous catheter is seen with the tip at the level of the upper SVC. Lungs: No acute consolidation. Bibasilar atelectasis. Pleural spaces: No pleural effusion. No pneumothorax. Heart/Mediastinum: No acute findings or cardiomegaly. Bones/joints: Chronic changes in the left-sided ribs. IMPRESSION: Left IJ central venous catheter tip at the level of the upper SVC.
[2023-08-09] MEDS: IOPAMIDOL-370 (76%);100ML BOTTLE 70 ML IV (02:51)
[2023-08-09] MEDS: 0.9 % SODIUM CHLORIDE 50 ML VIAL IV (02:52)
[2023-08-09] MEDS: SODIUM CHLORIDE 0.9% 10ML SYR (RAD ONLY) 10 ML IV (02:52)
[2023-08-09 02:53] LABS: VBG Base Excess -0.6 mmol/L (-2.4-2.3); VBG Oxygen Saturation 97.8 % (50-70); VBG PO2 109.7 mmol/L (28-40); VBG Total CO2 30.4 mmol/L (23-27)
[2023-08-09] MEDS: CEFTRIAXONE SODIUM 1 GM in 0.9 % SODIUM CHLORIDE 50 ML IV (02:53)
[2023-08-09 02:54] LABS: VBG PCO2 78.8 mmol/L (35-51); VBG PH 7.17 mmol/L (7.31-7.41)
[2023-08-09] MEDS: AZITHROMYCIN 500 MG in 0.9 % SODIUM CHLORIDE 250 ML 250 MG IV ×2 (03:00→22:26)
[2023-08-09 03:38] LABS: Troponin I < 0.01 ng/ml (0.00-0.034)
[2023-08-09] MEDS: RINGERS SOLUTION,LACTATED 500 ML 999 ML IV (03:54)
[2023-08-09 04:01] LABS: Microscopic, Urine URINE MICROSCOPIC (MICROSCOPIC)
[2023-08-09 04:03] LABS: Appearance,Urine CLEAR (Clear); Bilirubin,Urine Negative (Negative); Blood, Urine Negative (Negative); Color,Urine YELLOW (Yellow); Glucose,Urine (UA) Negative (Negative); Ketones,Urine Negative (Negative); Leukocyte Esterase,Urine Negative (Negative); Nitrate,Urine Negative (Negative); PH,Urine 5.5 (5.0-8.5); Protein,Urine Negative (Negative); Specific Gravity, Urine 1.025 (1.005-1.030); Urobilinogen,Urine 0.2 EU/dl (0.2)
[2023-08-09 04:04] LABS: Lactate Venous 1.5 mmol/L (0.4-2.0); VBG Base Excess -3.4 mmol/L (-2.4-2.3); VBG HCO3 24.7 mmol/L (23-30); VBG Oxygen Saturation 86.2 % (50-70); VBG PO2 50.8 mmol/L (28-40); VBG Total CO2 26.8 mmol/L (23-27)
[2023-08-09 04:06] LABS: VBG PCO2 66.1 mmol/L (35-51); VBG PH 7.19 mmol/L (7.31-7.41)
[2023-08-09 04:13] LABS: Bacteria,Urine Trace /lpf; WBC,Urine Occasional #/hpf (0-3)
[2023-08-09] MEDS: FENTANYL 100MCG/2ML VIAL 50 MCG IV (04:13)
[2023-08-09] MEDS: levETIRAcetam 500 MG in 0.9 % SODIUM CHLORIDE 100 ML 210 MG IV (04:14)
--- NOTE | 2023-08-09 04:16 | EXP.HP ---
History of Present Illness *Admission Date: 08/09/23 *Reason for visit:: SOB *History of present illness: This is a 63-year-old female with PMHx of morbid obesity, lymphedema, heart failure who states she takes inhalers but has not taken them since yesterday presents to the ER with concerns of chest pain and shortness of breath. At the time of this evaluation patient on AMS, on continuous BIPAP. unable to contribute any history Per ED: Patient reportedly wears 2 L nasal cannula at home at baseline. She lives at home with her who cares for her. Patient states she started having chest pain earlier today. Patient has also been having a dry cough. She reports subjective fevers. EMS was called this evening and found her at 74% on room air. Patient was placed on nonrebreather, they were unable to obtain IV access so patient did not receive any medications in route. Patient's oxygenation improved to 100% on nonrebreather. Patient states she does take a water pill. Admitted for further work up and treatment. [facility] Disclaimer: The information contained in this section may have been updated after the patient was seen, as this information can be updated by other users. Medical History (Updated 08/09/23 @ 17:18 by Michael Luke MD) Pneumonia Respiratory failure with hypoxia and hypercapnia Kidney stone Chronic kidney disease Sinus headache History of back pain History of gastroesophageal reflux (GERD) Congestive heart failure Seizure disorder COPD (chronic obstructive pulmonary disease) Surgical History (System 08/09/23 @ 06:26 by Stanton Lizarraga) History of cholecystectomy History of section Family History Other Family history of acute congestive heart failure Family history of cancer Family history of myocardial infarction Social History (System 08/09/23 @ 06:26 by Stanton Lizarraga) Smoking Status: Current every day smoker tobacco type: cigarettes packs per day: 1 second hand exposure: Yes alcohol intake: never counseling given: No substance use type: denies use counseling given: No current occupational status: retired, disabled and other Travel in the last 8 weeks: None adopted: No caregiver/support person: No foster care: No household members: spouse housing: house marital status: 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; 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 pets and animals: Yes pets and animals: cat(s) Hx Recent Travel: No sexually active: No caffeine: Yes physical activity: none cony/synagogue: [employer] special cony needs: No working smoke detector in home: Yes fire extinguisher in home: Yes carbon monox detector in home: No firearms in home: No do you feel safe at home: Yes victim of physical abuse: No victim of emotional abuse: No victim of sexual abuse: No would you like helpful sources: No Review of Systems Review of Systems Review of systems:: unable to obtain Constitutional Constitutional: Denies headache(s) and Denies weakness ENT Ears, Nose, Mouth, and Throat: Denies dizziness and Denies headache(s) *Musculoskeletal Musculoskeletal: Denies numbness and Denies tingling *Neurologic Neurologic: Denies dizziness, Denies headache(s), Denies numbness, Denies tingling and Denies weakness Meds Home Medications and Allergies Home Medications Medication Instructions Recorded Confirmed Type levetiracetam 500 mg tablet 500 mg PO BID 01/26/21 08/09/23 History magnesium oxide 400 mg (241.3 mg 400 mg PO DAILY 08/23/21 08/09/23 History magnesium) tablet multivitamin 1 each PO DAILY 08/23/21 08/09/23 History potassium chloride 10 mEq 10 meq PO BID 08/23/21 08/09/23 History tablet,extended release propranolol 20 mg tablet 20 mg PO 1700 08/23/21 08/09/23 History ropinirole 1 mg tablet 1 mg PO HS 08/23/21 08/09/23 History sumatriptan succinate 100 mg tablet 100 mg PO DAILYP PRN Migraine 08/23/21 08/09/23 History Headache topiramate 50 mg tablet 50 mg PO BID 08/23/21 08/09/23 History verapamil 120 mg tablet 120 mg PO HS 08/23/21 08/09/23 History aripiprazole 5 mg tablet 5 mg PO DAILY 08/07/22 08/09/23 History trazodone 100 mg tablet 100 mg PO HS 08/07/22 08/09/23 History budesonide-formoterol HFA 160 2 puff inhalation BID 06/20/23 08/09/23 History mcg-4.5 mcg/actuation aerosol inhaler buspirone 10 mg tablet 20 mg PO DAILY 06/20/23 08/09/23 History cholecalciferol (vitamin D3) 125 125 mcg PO DAILY 06/20/23 08/09/23 History mcg (5,000 unit) capsule omeprazole 40 mg capsule,delayed 40 mg PO DAILY 06/20/23 08/09/23 History release venlafaxine 75 mg tablet 75 mg PO DAILY 06/20/23 08/09/23 History furosemide 40 mg tablet 40 mg PO BIDL 30 days #60 tabs 06/21/23 08/09/23 Rx nitroglycerin 0.4 mg sublingual 0.4 mg sublingual Q5MINP PRN Chest 08/09/23 08/09/23 History tablet Pain New Prescriptions to Start Prescriptions: Allergies Allergy/AdvReac Type Severity Reaction Status Date / Time Penicillins Allergy Verified 08/09/23 06:26 Exam Data for Last 24 hours Vital signs and Labs for Last 24 Hours: Temp Pulse Resp BP Pulse Ox O2 Del Method O2 Flow Rate 98.5 F 95 H 30 H 145/75 H 98 BiPAP 10 08/08/23 23:45 08/09/23 03:41 08/08/23 23:45 08/09/23 03:32 08/09/23 03:32 08/09/23 03:32 08/08/23 23:45 Laboratory Results - last 24 hr 08/08/23 23:46: VBG pH 7.24 L, VBG pCO2 72.9 H, VBG pO2 196.2 H, VBG HCO3 30.5 H, VBG Total CO2 32.8 H, VBG O2 Saturation 99.1 H, VBG Base Excess 3.1 H, VBG Lactic Acid 0.9 08/09/23 00:01: Sodium 142, Potassium 5.3 H, Chloride 104, Carbon Dioxide 36 H, Anion Gap 7.3, BUN 40 H, Creatinine 2.30 H, Estimated Creat Clear 18, Estimated GFR 21 L, Est GFR ( Amer) 26 L, Glucose 108 H, Calcium 8.8, Total Bilirubin 0.4, AST 32, ALT 15, Alkaline Phosphatase 139 H, Troponin I < 0.01, NT-Pro-B Natriuret Pep 7950 H, Total Protein 6.9, Albumin 3.7, Globulin 3.2, Albumin/Globulin Ratio 1.2 08/09/23 01:07: WBC 4.7 L, RBC 4.19 L, Hgb 12.8, Hct 43.3, MCV 103.4 H, MCH 30.7, MCHC 29.6 L, RDW 14.5, Plt Count 137 L, MPV 8.4, Neut % (Auto) 69.2, Lymph % (Auto) 23.1, [place] % (Auto) 6.6, Eos % (Auto) 0.4, Baso % (Auto) 0.7, Neut # (Auto) 3.3, Lymph # (Auto) 1.1, [place] # (Auto) 0.3, Eos # (Auto) 0.0, Baso # (Auto) 0.0, Lactate 0.8 08/09/23 02:24: Urine Color Yellow, Urine Appearance Clear, Urine pH 5.5, Ur Specific [place] 1.025, Urine Protein Negative, Urine Glucose (UA) Negative, Urine Ketones Negative, Urine Blood Negative, Urine Nitrate Negative, Urine Bilirubin Negative, Urine Urobilinogen 0.2, Ur Leukocyte Esterase Negative, Urine RBC None, Urine WBC Occasional, Ur Squamous Epith Cells 3-5, Urine Bacteria Trace 08/09/23 02:48: VBG pH 7.17 L, VBG pCO2 78.8 H, VBG pO2 109.7 H, VBG HCO3 28.0, VBG Total CO2 30.4 H, VBG O2 Saturation 97.8 H, VBG Base Excess -0.6, VBG Lactic Acid 1.0 08/09/23 03:09: Troponin I < 0.01 08/09/23 03:53: VBG pH 7.19 L, VBG pCO2 66.1 H, VBG pO2 50.8 H, VBG HCO3 24.7, VBG Total CO2 26.8, VBG O2 Saturation 86.2 H, VBG Base Excess -3.4 L, VBG Lactic Acid 1.5 I & O for Last 24 hours: Intake & Output 08/06/23 08/07/23 08/08/23 08/09/23 23:59 23:59 23:59 23:59 Weight 145.15 kg Constitutional Constitutional: morbidly obese, chronically ill appearing and obtunded *Routine HEENT Exam Head: Present normocephalic Eye: Present EOMI and PERRL ENT: Present mucous membranes moist *Routine Neck Exam Neck: Present supple; Absent lymphadenopathy *Routine Respiratory Exam Respiratory: Present decreased breath sounds, CTA bilaterally, rales, wheezes and diminished air movement *Routine Cardiovascular Exam Cardiovascular: Present RRR *Routine Abdominal Exam Abdominal: Present soft and normoactive bowel sounds; Absent tenderness *Routine Rectal Exam Rectal:: deferred *Routine Genitalia Exam Genitalia:: deferred *Routine Extremities Exam Extremities: Absent cyanosis, clubbing or edema *Routine Skin Exam Skin: Present warm; Absent rash *Routine Neurological Exam Neurological: Present altered mental status Routine Psychiatric Exam Psychiatric: Present unable to assess H&P: Result Imaging and Cardiology EKG: Status: image reviewed by me, Preliminary report and final report Chest x-ray: Status: image reviewed by me, Preliminary report and final report CT scan - chest: Status: image reviewed by me, Preliminary report and final report Assessment and Plan *Assessment and plan (1) Respiratory failure with hypoxia and hypercapnia: Status: Acute Category: Medical Code(s): J96.91 - Respiratory failure, unspecified with hypoxia; J96.92 - Respiratory failure, unspecified with hypercapnia (2) Pneumonia: Status: Acute Category: Medical Code(s): J18.9 - Pneumonia, unspecified organism (3) Morbid obesity: Status: Acute Category: Medical Code(s): E66.01 - Morbid (severe) obesity due to excess calories (4) SHALYA (acute kidney injury): Status: Acute Category: Medical Code(s): N17.9 - Acute kidney failure, unspecified (5) Congestive cardiac failure: Status: Acute Qualifiers: Heart failure chronicity: unspecified Heart failure type: unspecified Qualified Code(s): I50.9 - Heart failure, unspecified Category: Medical Code(s): I50.9 - Heart failure, unspecified (6) Chronic kidney disease: Status: Acute Qualifiers: Chronic kidney disease stage: stage 4 (severe) Qualified Code(s): N18.4 - Chronic kidney disease, stage 4 (severe) Category: Medical Code(s): N18.9 - Chronic kidney disease, unspecified (7) Major depression: Status: Chronic Qualifiers: Active/Remission status: currently active Major depression episode severity: severe Major depression recurrence: recurrent Psychotic features: with psychotic features Qualified Code(s): F33.3 - Major depressive disorder, recurrent, severe with psychotic symptoms Category: Medical Code(s): F32.9 - Major depressive disorder, single episode, unspecified (8) Seizure disorder: Status: Acute Category: Medical Code(s): G40.909 - Epilepsy, unspecified, not intractable, without status epilepticus Plan 63-year-old female with PMHx of morbid obesity, lymphedema, heart failure who states she takes inhalers but has not taken them since yesterday presents to the ER with concerns of chest pain and shortness of breath. Presented to the ER via EMS altered and respiratory distress. Placed on BiPAP. Medicine consulted for admission. Patient necessitating inpatient management. Medicine agreed to admit. Treated respiratory failure with BiPAP overnight. Pulmonology consulted. Problems addressed as follows: -Respiratory failure with hypercapnia: respiratory acidosis suspected COPD exacerbation versus pneumonia can not rule out Congestive cardiac failure: Pulmonology consulted, discussed case, recommend continuing BiPAP with current settings of 818, FiO2 40%, rate 20. Blood gas showing slow improvement. Hypercarbia improving. -Continue broad-spectrum antibiotics with ceftriaxone and azithromycin daily -Continue DuoNebs every 4 hour along with Pulmicort every 12 hours. -Continue methylprednisolone 60 mg IV daily -White cell count 6.5 this morning. -BNP elevated at 7000 -Repeat CBC, CMP, magnesium ordered for the morning. -Reevaluate need for Lasix in the morning. SHAYLA: BUN 38, creatinine 2.4. Slightly above her baseline but not far off. Caution with nephrotoxins. Renally dose medications. Mood disorder: Continue Abilify 5 mg daily, BuSpar 20 mg daily Seizure disorder: Continue Keppra 500 Tran twice daily Hypertension: Continue propranolol 20 mg nightly, verapamil 120 mg nightly Morbidly obese: Complicates all aspects of her care Heparin SQ twice daily Full code Protonix -N.p.o. while on BiPAP
--- NOTE | 2023-08-09 04:30 | PC.NURSE ---
House notified of admission
[2023-08-09] MEDS: SODIUM CHLORIDE 3% 15ML NEB 3 ML IH (04:45)
--- NOTE | 2023-08-09 04:45 | PC.NURSE ---
RT at bedside
--- NOTE | 2023-08-09 04:45 | PC.NURSE ---
Report given to RIOS Galeas at this time. ER staff will transport patient to second floor after RT suctions patient.
--- NOTE | 2023-08-09 04:54 | PC.NURSE ---
Patient arrived to floor via stretcher from ED at 4:53.
[2023-08-09] MEDS: HEPARIN SODIUM 5,000 UNIT/ML VIAL 5000 UNIT SQ ×2 (05:52→20:27)
[2023-08-09 06:02] LABS: Eosinophils % 0.1 % (0.1-12.0); Hematocrit 40.8 % (37.0-47.0); Hemoglobin 12.2 g/dL (12.2-16.2); Lymphocytes # 0.4 K/mm3 (0.7-4.5); Lymphocytes % 5.5 % (10-50); Mean Corpuscular HGB Conc 29.8 g/dL (31.8-35.4); Mean Corpuscular Hemoglobin 30.7 pg (27.0-31.2); Mean Corpuscular Volume 102.9 fl (81-99); Mean Platelet Volume 10.3 fl (7.4-10.4); Monocytes # 0.1 K/mm3 (0.1-1.0); Monocytes % 1.5 % (1.7-9.3); Neutrophils % 92.8 % (37.0-80.0); Platelet Count 137 K/mm3 (142-424); Red Blood Count 3.96 M/mm3 (4.20-5.40); Red Cell Distribution Width 14.6 % (11.5-17.5); White Blood Count 6.4 K/mm3 (4.8-10.8)
[2023-08-09 06:03] LABS: MANUAL DIFFERENTIAL MANUAL DIFFERENTIAL (MANUAL DIFF)
[2023-08-09 06:07] LABS: Chloride 105 mmol/L (98-107); Potassium 4.8 mmoL/L (3.5-5.1); Sodium 142 mmol/L (136-145)
[2023-08-09 06:09] LABS: Alanine Aminotransferase 18 U/L (12-78); Aspartate Amino Transferase 27 U/L (14-36); Blood Urea Nitrogen 38 mg/dl (7-17); Creatinine Clearance Estimated 17 mL/min (50-200); Estimated Glomerular Filt Rate 20 ml/min (>60); GFR (African American) 25 ML/MIN (>60)
[2023-08-09 06:10] LABS: Albumin Level 3.3 g/dl (3.5-5.0); Albumin/Globulin Ratio 1.1 (1.1-1.8); Alkaline Phosphatase 144 U/L (38-126); Anion Gap 6.8 mEq/L (5-15); Bilirubin,Total 0.3 mg/dl (0.2-1.3); Calcium 8.7 mg/dl (8.4-10.2); Carbon Dioxide 35 mmol/L (22.0-30.0); Globulin 3.1 g/dL (1.3-3.2); Glucose 155 mg/dl (74-100); Magnesium 1.9 mg/dl (1.6-2.3); Total Protein,Serum 6.4 g/dl (6.3-8.2)
[2023-08-09 06:17] LABS: Hypochromasia 1+; Lymphocytes % 6 % (10-50); Macrocytosis 1+; Monocytes % 3 % (2-9); Neutrophils % 91 % (42-76); Platelet Estimate Slight Decrease; Total Cells Counted 100
[2023-08-09] MEDS: FUROSEMIDE 40MG/4ML VIAL 40 MG IV (06:37)
--- NOTE | 2023-08-09 07:48 | HMH.PHAINT1 ---
Pharmacy Intervention Comments: MEDICATION RECONCILIATION COMPLETED ON PATIENT USING EXTERNAL FILL HISTORY FROM PHARMACY AND DISCHARGE SUMMARY FROM PREVIOUS ADMISSION. -MILLICENT PONCE, AYLEEND
[2023-08-09 08:07] LABS: Troponin I 0.01 ng/ml (0.00-0.034)
--- NOTE | 2023-08-09 09:02 | P.CONS_ITS ---
History of Present Illness History of present illness: Ms. Diaz is a 63-year-old female with reported history of COPD, CKD stage IV, morbid obesity, heart failure presented to the ER with worsening respiratory distress patient admitted noncompliance her inhaler therapy was admitted for further evaluation and management. [facility] Disclaimer: The information contained in this section may have been updated after the patient was seen, as this information can be updated by other users. Medical History (Updated 08/09/23 @ 10:03 by Armen Sheffield MD) Pneumonia Respiratory failure with hypoxia and hypercapnia Kidney stone Chronic kidney disease Sinus headache History of back pain History of gastroesophageal reflux (GERD) Congestive heart failure Seizure disorder COPD (chronic obstructive pulmonary disease) Surgical History (System 08/09/23 @ 06:26 by Stanton Lizarraga) History of cholecystectomy History of section Family History Other Family history of acute congestive heart failure Family history of cancer Family history of myocardial infarction Social History (System 08/09/23 @ 06:26 by Stanton Lizarraga) Smoking Status: Current every day smoker tobacco type: cigarettes packs per day: 1 second hand exposure: Yes alcohol intake: never counseling given: No substance use type: denies use counseling given: No current occupational status: retired and disabled Travel in the last 8 weeks: None adopted: No caregiver/support person: No foster care: No household members: spouse housing: house marital status: 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; 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 pets and animals: Yes pets and animals: cat(s) Hx Recent Travel: No sexually active: No caffeine: Yes physical activity: none cony/religious: Religion special cony needs: No working smoke detector in home: Yes fire extinguisher in home: Yes carbon monox detector in home: No firearms in home: No do you feel safe at home: Yes victim of physical abuse: No victim of emotional abuse: No victim of sexual abuse: No would you like helpful sources: No Review of Systems Review of Systems Review of systems:: unable to obtain Pulmonology Exam Inpatient Vital signs and Labs for Last 24 Hours: Temp Pulse Resp BP Pulse Ox O2 Del Method O2 Flow Rate 98.0 F 90 14 123/56 L 94 L BiPAP 10 08/09/23 05:28 08/09/23 06:00 08/09/23 06:00 08/09/23 06:00 08/09/23 06:00 08/09/23 06:45 08/08/23 23:45 FiO2 35 08/09/23 05:15 Laboratory Results - last 24 hr 08/08/23 23:46: VBG pH 7.24 L, VBG pCO2 72.9 H, VBG pO2 196.2 H, VBG HCO3 30.5 H , VBG Total CO2 32.8 H, VBG O2 Saturation 99.1 H, VBG Base Excess 3.1 H, VBG Lactic Acid 0.9 08/09/23 00:01: Sodium 142, Potassium 5.3 H, Chloride 104, Carbon Dioxide 36 H, Anion Gap 7.3, BUN 40 H, Creatinine 2.30 H, Estimated Creat Clear 18, Estimated GFR 21 L, Est GFR ( Amer) 26 L, Glucose 108 H, Calcium 8.8, Total Bilirubin 0.4, AST 32, ALT 15, Alkaline Phosphatase 139 H, Troponin I < 0.01, N T-Pro-B Natriuret Pep 7950 H, Total Protein 6.9, Albumin 3.7, Globulin 3.2, Albumin/Globulin Ratio 1.2 08/09/23 01:07: WBC 4.7 L, RBC 4.19 L, Hgb 12.8, Hct 43.3, MCV 103.4 H, MCH 30.7, MCHC 29.6 L, RDW 14.5, Plt Count 137 L, MPV 8.4, Neut % (Auto) 69.2, Lymph % (Auto) 23.1, [place] % (Auto) 6.6, Eos % (Auto) 0.4, Baso % (Auto) 0.7, Neut # (Auto) 3.3, Lymph # (Auto) 1.1, [place] # (Auto) 0.3, Eos # (Auto) 0.0, Baso # (Auto) 0.0, Lactate 0.8 08/09/23 02:24: Urine Color Yellow, Urine Appearance Clear, Urine pH 5.5, Ur Specific [place] 1.025, Urine Protein Negative, Urine Glucose (UA) Negative, Urine Ketones Negative, Urine Blood Negative, Urine Nitrate Negative, Urine Bilirubin Negative, Urine Urobilinogen 0.2, Ur Leukocyte Esterase Negative, Urine RBC None, Urine WBC Occasional, Ur Squamous Epith Cells 3-5, Urine Bacteria Trace 08/09/23 02:48: VBG pH 7.17 L, VBG pCO2 78.8 H, VBG pO2 109.7 H, VBG HCO3 28.0, VBG Total CO2 30.4 H, VBG O2 Saturation 97.8 H, VBG Base Excess -0.6, VBG Lactic Acid 1.0 08/09/23 03:09: Troponin I < 0.01 08/09/23 03:53: VBG pH 7.19 L, VBG pCO2 66.1 H, VBG pO2 50.8 H, VBG HCO3 24.7, VBG Total CO2 26.8, VBG O2 Saturation 86.2 H, VBG Base Excess -3.4 L, VBG Lactic Acid 1.5 08/09/23 : WBC 6.4 D, RBC 3.96 L, Hgb 12.2, Hct 40.8, MCV 102.9 H, MCH 30.7, M CHC 29.8 L, RDW 14.6, Plt Count 137 L, MPV 10.3, Neut % (Auto) 92.8 H, Lymph % (Auto) 5.5 L, [place] % (Auto) 1.5 L, Eos % (Auto) 0.1, Baso % (Auto) 0.0 L, Neut # (Auto) 6.0, Lymph # (Auto) 0.4 L, [place] # (Auto) 0.1, Eos # (Auto) 0.0, Baso # (Auto) 0.0, Total Counted 100, Neutrophils % (Manual) 91 H, Lymphocytes % (Manual) 6 L, Monocytes % (Manual) 3, Platelet Estimate Slight decrease, Hypochromasia 1+, Macrocytosis 1+, Sodium 142, Potassium 4.8, Chloride 105, C arbon Dioxide 35 H, Anion Gap 6.8, BUN 38 H, Creatinine 2.40 H, Estimated Creat Clear 17, Estimated GFR 20 L, Est GFR ( Amer) 25 L, Glucose 155 H D, Calcium 8.7, Magnesium 1.9, Total Bilirubin 0.3, AST 27, ALT 18, Alkaline Phosphatase 144 H, Troponin I 0.01, Total Protein 6.4, Albumin 3.3 L D, Globulin 3.1, Albumin/Globulin Ratio 1.1 I & O for Labs for Last 24 Hours: Intake & Output 08/06/23 08/07/23 08/08/23 08/09/23 23:59 23:59 23:59 23:59 Output Total 150 / 150 Balance -150 / -150 Weight 320 lb Constitutional: Present severe distress Head: Present normocephalic and atraumatic ENT: Present normal exam, normal oropharynx and mucous membranes moist Neck: Present normal inspection and full ROM Respiratory: Present prolonged expiratory phase, respiratory distress, rhonchi, wheezes and diminished air movement; Absent able to speak in complete sentences Cardiac: Present S1/S2, Tachycardia and radial pulses present GI: Present soft and distention; Absent tenderness or guarding Rectal (female): Present deferred (female): Present deferred Skin: Present intact; Absent cyanosis or jaundice Neuro: Present awake Extremities: Present normal inspection; Absent clubbing or cyanosis Psychiatric: Present unable to assess Meds Home Medications and Allergies Home Medications Medication Instructions Recorded Confirmed Type levetiracetam 500 mg tablet 500 mg PO BID 01/26/21 08/09/23 History magnesium oxide 400 mg (241.3 mg 400 mg PO DAILY 08/23/21 08/09/23 History magnesium) tablet multivitamin 1 each PO DAILY 08/23/21 08/09/23 History potassium chloride 10 mEq 10 meq PO BID 08/23/21 08/09/23 History tablet,extended release propranolol 20 mg tablet 20 mg PO 1700 08/23/21 08/09/23 History ropinirole 1 mg tablet 1 mg PO HS 08/23/21 08/09/23 History sumatriptan succinate 100 mg tablet 100 mg PO DAILYP PRN Migraine 08/23/21 08/09/23 History Headache topiramate 50 mg tablet 50 mg PO BID 08/23/21 08/09/23 History verapamil 120 mg tablet 120 mg PO HS 08/23/21 08/09/23 History aripiprazole 5 mg tablet 5 mg PO DAILY 08/07/22 08/09/23 History trazodone 100 mg tablet 100 mg PO HS 08/07/22 08/09/23 History budesonide-formoterol HFA 160 2 puff inhalation BID 06/20/23 08/09/23 History mcg-4.5 mcg/actuation aerosol inhaler buspirone 10 mg tablet 20 mg PO DAILY 06/20/23 08/09/23 History cholecalciferol (vitamin D3) 125 125 mcg PO DAILY 06/20/23 08/09/23 History mcg (5,000 unit) capsule omeprazole 40 mg capsule,delayed 40 mg PO DAILY 06/20/23 08/09/23 History release venlafaxine 75 mg tablet 75 mg PO DAILY 06/20/23 08/09/23 History furosemide 40 mg tablet 40 mg PO BIDL 30 days #60 tabs 06/21/23 08/09/23 Rx nitroglycerin 0.4 mg sublingual 0.4 mg sublingual Q5MINP PRN Chest 08/09/23 08/09/23 History tablet Pain New Prescriptions to Start Prescriptions: Allergies Allergy/AdvReac Type Severity Reaction Status Date / Time Penicillins Allergy Verified 08/09/23 06:26 Results Laboratory Findings 08/09/23 Unknown 08/09/23 Unknown Abnormal lab findings: Abnormal Labs 08/08/23 08/09/23 08/09/23 23:46 00:01 01:07 WBC 4.7 L RBC 4.19 L MCV 103.4 H MCHC 29.6 L Plt Count 137 L Neut % (Auto) Lymph % (Auto) [place] % (Auto) Baso % (Auto) Lymph # (Auto) Neutrophils % (Manual) Lymphocytes % (Manual) VBG pH 7.24 L VBG pCO2 72.9 H VBG pO2 196.2 H VBG HCO3 30.5 H VBG Total CO2 32.8 H VBG O2 Saturation 99.1 H VBG Base Excess 3.1 H Potassium 5.3 H Carbon Dioxide 36 H BUN 40 H Creatinine 2.30 H Estimated GFR 21 L Est GFR ( Amer) 26 L Glucose 108 H Alkaline Phosphatase 139 H NT-Pro-B Natriuret Pep 7950 H Albumin 08/09/23 08/09/23 08/09/23 02:48 03:53 Unknown WBC RBC 3.96 L MCV 102.9 H MCHC 29.8 L Plt Count 137 L Neut % (Auto) 92.8 H Lymph % (Auto) 5.5 L [place] % (Auto) 1.5 L Baso % (Auto) 0.0 L Lymph # (Auto) 0.4 L Neutrophils % (Manual) 91 H Lymphocytes % (Manual) 6 L VBG pH 7.17 L 7.19 L VBG pCO2 78.8 H 66.1 H VBG pO2 109.7 H 50.8 H VBG HCO3 VBG Total CO2 30.4 H VBG O2 Saturation 97.8 H 86.2 H VBG Base Excess -3.4 L Potassium Carbon Dioxide 35 H BUN 38 H Creatinine 2.40 H Estimated GFR 20 L Est GFR ( Amer) 25 L Glucose 155 H D Alkaline Phosphatase 144 H NT-Pro-B Natriuret Pep Albumin 3.3 L D Assessment and Plan *Assessment and plan (1) Respiratory failure with hypoxia and hypercapnia: Status: Acute Category: Medical Code(s): J96.91 - Respiratory failure, unspecified with hypoxia; J96.92 - Respiratory failure, unspecified with hypercapnia (2) Pneumonia: Status: Acute Category: Medical Code(s): J18.9 - Pneumonia, unspecified organism Plan Ms. Diaz is a 63-year-old female with reported history of COPD, CKD stage IV, morbid obesity, heart failure presented to the ER with worsening respiratory distress patient admitted noncompliance her inhaler therapy was admitted for further evaluation and management. Patient also complained of chest pain upon admission, cardiology consulted. Leukopenia upon admission improving. Afebrile. Hemodynamically stable. VBG upon admission showed severe hypercarbic respiratory failure with a pH of 7.17 and pCO2 of 78.8. Patient has a recent hospital admission for hypercarbic respiratory failure in June 2023. CTA upon admission no obvious evidence of pulmonary embolism no dense consolidations or airspace disease noted. Upper lobe prominent interstitial/fibrotic changes noted likely appear chronic. Patient on admission was initiated on ceftriaxone and azithromycin for community-acquired pneumonia along with nebulization therapies. She is also receiving diuretics for possible congestive heart failure exacerbation. Patient exam severe respiratory distress. Continued to have hypercarbic respiratory failure. Plan: Continue BiPAP at current settings, 8/18 FiO2 40% and rate of 20. PEEP blood gas showed improving hypercarbic respiratory failure. Given patient's morbid obesity and concern for recurrent hypercarbic respiratory failure she will benefit from using noninvasive ventilator therapy upon discharge. Will follow with daytime blood gases to determine the need. DuoNebs every 4 hours along with Pulmicort every 12 scheduled Continuous uptrend azithromycin pending community-acquired pneumonia Continue methylprednisolone 60mg IV daily # Thank you for involving pulmonary in this patient care. Will continue to follow.
[2023-08-09 09:55] LABS: VBG PO2 60.2 mmol/L (28-40)
[2023-08-09 09:56] LABS: Lactate Venous 2.7 mmol/L (0.4-2.0); VBG Base Excess 3.2 mmol/L (-2.4-2.3); VBG HCO3 31.1 mmol/L (23-30); VBG Oxygen Saturation 92.5 % (50-70); VBG Total CO2 33.1 mmol/L (23-27)
[2023-08-09] MEDS: IPRATROPIUM/ALBUTEROL 3 ML NEB IH ×4 (10:09→21:40)
[2023-08-09] MEDS: METHYLPREDNISOLONE SOD SUCC 125MG VIAL 60 MG IV (10:24)
[2023-08-09] MEDS: NYSTATIN TOPICAL POWDER 30GM TP ×3 (10:25→20:27)
[2023-08-09 13:55] LABS: Reflex Lactic Add Lactic Reflex
[2023-08-09] MEDS: PROPRANOLOL 20MG TAB 20 MG PO (16:05)
--- NOTE | 2023-08-09 17:21 | PC.NURSE ---
pt has appeared to rest in her room this shift. pt was turned q2h without issue. pt has no open areas noted to coccyx. pt is able to converse/respond to staff during conversation. pt is a/o x 3. pt has dia cath in place draining clear yellow urine.
[2023-08-09] MEDS: BUDESONIDE 0.5MG/2ML NEB 0.5 MG IH (17:35)
[2023-08-09 18:40] LABS: Lactic Acid Follow Up (RFLX 1) 0.8 mmol/L (0.7-2.1)
[2023-08-09] MEDS: VERAPAMIL SR 120MG TABLET 120 MG PO (20:26)
[2023-08-09] MEDS: PANTOPRAZOLE 40MG VIAL 40 MG IV (20:27)
[2023-08-09] MEDS: CEFTRIAXONE 1 GM 1 GM in 0.9 % SODIUM CHLORIDE 50 ML IV (20:27)
[2023-08-09] MEDS: levETIRAcetam 500 MG TABLET PO (20:27)
[2023-08-09] MEDS: ROPINIROLE 1MG TABLET 1 MG PO (20:27)
[2023-08-09] MEDS: SODIUM CHLORIDE 0.9% 10ML VIAL 10 ML IV (20:27)
--- NOTE | 2023-08-09 21:21 | PC.NURSE ---
Central line dressing changed. Report was given to Leticia NATION to resume care at 2100.
[2023-08-10] VITALS (20 sets, daily range): BP systolic 100–139; BP diastolic 55–80; PULSE 66–100; RESP 18–26; TEMP 36.3–36.9; O2SAT 92–100; BMI 64.6
[2023-08-10] MEDS: IPRATROPIUM/ALBUTEROL 3 ML NEB IH ×6 (02:01→22:11)
[2023-08-10] MEDS: BUDESONIDE 0.5MG/2ML NEB 0.5 MG IH ×2 (05:17→18:33)
[2023-08-10 07:01] LABS: Basophils # 0.1 K/mm3 (0-0.2); Basophils % 0.8 % (0.1-2.0); Eosinophils % 0.6 % (0.1-12.0); Hematocrit 36.8 % (37.0-47.0); Hemoglobin 11.4 g/dL (12.2-16.2); Lymphocytes % 15.2 % (10-50); Mean Corpuscular Hemoglobin 30.9 pg (27.0-31.2); Mean Corpuscular Volume 99.7 fl (81-99); Mean Platelet Volume 8.9 fl (7.4-10.4); Monocytes # 0.6 K/mm3 (0.1-1.0); Monocytes % 9.1 % (1.7-9.3); Neutrophils # 4.9 K/mm3 (1.8-7.8); Neutrophils % 74.2 % (37.0-80.0); Platelet Count 138 K/mm3 (142-424); Red Blood Count 3.69 M/mm3 (4.20-5.40); Red Cell Distribution Width 14.8 % (11.5-17.5); White Blood Count 6.5 K/mm3 (4.8-10.8)
[2023-08-10 07:14] LABS: Chloride 104 mmol/L (98-107)
[2023-08-10 07:15] LABS: Potassium 4.9 mmoL/L (3.5-5.1); Sodium 142 mmol/L (136-145)
[2023-08-10 07:17] LABS: Alanine Aminotransferase 16 U/L (12-78); Alkaline Phosphatase 120 U/L (38-126); Aspartate Amino Transferase 31 U/L (14-36); Bilirubin,Total 0.3 mg/dl (0.2-1.3); Blood Urea Nitrogen 43 mg/dl (7-17); Creatinine Clearance Estimated 17 mL/min (50-200); Estimated Glomerular Filt Rate 22 ml/min (>60); GFR (African American) 27 ML/MIN (>60)
[2023-08-10 07:18] LABS: Albumin Level 3.1 g/dl (3.5-5.0); Albumin/Globulin Ratio 1.1 (1.1-1.8); Anion Gap 4.9 mEq/L (5-15); Calcium 8.9 mg/dl (8.4-10.2); Carbon Dioxide 38 mmol/L (22.0-30.0); Globulin 2.7 g/dL (1.3-3.2); Glucose 87 mg/dl (74-100); Phosphorous 4.3 mg/dl (2.5-4.5); Total Protein,Serum 5.8 g/dl (6.3-8.2)
--- NOTE | 2023-08-10 08:07 | P.PN_ITS ---
Subjective *Date: 08/10/23 *Time: 12:58 Interval history: Remains on BiPAP. Tolerated for the past 24 hours. Repeat blood gas pending this morning. No nausea or vomiting. A little bit more alert today. Afebrile. Medical Exam Vital signs and Labs for Last 24 Hours: Vital Signs Temp Pulse Pulse Resp BP Pulse Ox O2 Del Method 08/10/23 07:31 98.2 F 08/10/23 06:51 BiPAP 08/10/23 05:57 88 22 119/57 L 92 L BiPAP 08/10/23 05:17 86 08/10/23 05:17 87 08/10/23 05:17 08/10/23 05:00 BiPAP 08/10/23 04:00 92 L BiPAP 08/10/23 04:00 90 08/10/23 04:00 97.6 F 87 22 113/63 93 L BiPAP 08/10/23 03:00 BiPAP 08/10/23 02:01 85 08/10/23 02:00 08/10/23 02:00 86 21 104/55 L 94 L BiPAP 08/10/23 01:00 BiPAP 08/10/23 00:00 100 H 08/10/23 00:00 97.4 F L 91 H 23 100/57 L 94 L BiPAP 08/09/23 23:00 BiPAP 08/09/23 22:00 91 H 23 115/57 L 95 BiPAP 08/09/23 21:55 08/09/23 21:40 86 08/09/23 20:00 80 08/09/23 20:00 98.6 F 88 22 114/61 95 BiPAP 08/09/23 20:00 95 BiPAP 08/09/23 18:48 BiPAP 08/09/23 18:00 88 20 115/61 95 BiPAP 08/09/23 17:35 79 08/09/23 17:30 08/09/23 17:00 BiPAP 08/09/23 16:00 98.8 F 08/09/23 16:00 102 H 20 124/68 95 BiPAP 08/09/23 16:00 100 H 08/09/23 15:00 BiPAP 08/09/23 14:33 96 BiPAP 08/09/23 14:00 91 H 20 155/61 H 91 L BiPAP 08/09/23 14:00 94 H 21 155/61 H 97 BiPAP 08/09/23 13:42 08/09/23 13:00 BiPAP 08/09/23 12:00 97 H 20 103/36 L 93 L BiPAP 08/09/23 12:00 95 H 08/09/23 12:00 99.4 F 08/09/23 11:30 BiPAP 08/09/23 11:24 BiPAP 08/09/23 10:11 104 H 08/09/23 10:11 102 H 08/09/23 10:00 98 H 22 169/70 H 90 L BiPAP 08/09/23 09:42 BiPAP 08/09/23 08:45 FiO2 08/10/23 07:31 08/10/23 06:51 08/10/23 05:57 08/10/23 05:17 08/10/23 05:17 08/10/23 05:17 40 08/10/23 05:00 08/10/23 04:00 08/10/23 04:00 08/10/23 04:00 08/10/23 03:00 08/10/23 02:01 08/10/23 02:00 40 08/10/23 02:00 08/10/23 01:00 08/10/23 00:00 08/10/23 00:00 08/09/23 23:00 08/09/23 22:00 08/09/23 21:55 40 08/09/23 21:40 08/09/23 20:00 08/09/23 20:00 40 08/09/23 20:00 40 08/09/23 18:48 08/09/23 18:00 40 08/09/23 17:35 08/09/23 17:30 40 08/09/23 17:00 08/09/23 16:00 08/09/23 16:00 40 08/09/23 16:00 08/09/23 15:00 08/09/23 14:33 40 08/09/23 14:00 40 08/09/23 14:00 40 08/09/23 13:42 40 08/09/23 13:00 08/09/23 12:00 40 08/09/23 12:00 08/09/23 12:00 08/09/23 11:30 08/09/23 11:24 08/09/23 10:11 08/09/23 10:11 08/09/23 10:00 40 08/09/23 09:42 08/09/23 08:45 40 Intake and Output 08/09/23 08/10/23 08/10/23 23:59 07:59 15:59 Intake Total 350 / 350 Output Total 0 / 1250 600 / 600 Balance 0 / -900 -250 / -250 Intake: Intake, Total IV Amount 350 / 350 Azithromycin 500 mg In 0.9 % 250 / 250 Sodium Chloride 250 ml @ 250 mls/hr IV Q24H [facility] Rx#:[id number] Ceftriaxone 1 gm 1 gm In 0.9 % 100 / 100 Sodium Chloride 50 ml @ 100 mls /hr IV Q24H [facility] Rx#:[id number] Output: Output, Urine Amount 0 / 1250 600 / 600 Other: Number of Voids 0 Number of Unmeasured Voids 0 1 Number of Bowel Movements 1 Weight 149.4 kg Patient Weight 08/10/23 23:59 Weight 149.4 kg Laboratory Results - last 24 hr 08/09/23 09:54: VBG pH 7.30 L, VBG pCO2 64.0 H, VBG pO2 60.2 H, VBG HCO3 31.1 H, VBG Total CO2 33.1 H, VBG O2 Saturation 92.5 H, VBG Base Excess 3.2 H, VBG Lactic Acid 2.7 H 08/09/23 17:56: Lactate 0.8 08/09/23 : Troponin I 0.01 08/10/23 06:45: WBC 6.5, RBC 3.69 L, Hgb 11.4 L, Hct 36.8 L, MCV 99.7 H, MCH 30.9, MCHC 31.0 L, RDW 14.8, Plt Count 138 L, MPV 8.9, Neut % (Auto) 74.2, Lymph % (Auto) 15.2, [place] % (Auto) 9.1, Eos % (Auto) 0.6, Baso % (Auto) 0.8, Neut # (Auto) 4.9, Lymph # (Auto) 1.0, [place] # (Auto) 0.6, Eos # (Auto) 0.0, Baso # (Auto) 0.1, Sodium 142, Potassium 4.9, Chloride 104, Carbon Dioxide 38 H, Anion Gap 4.9 L, BUN 43 H, Creatinine 2.20 H, Estimated Creat Clear 17, Estimated GFR 22 L, Est GFR ( Amer) 27 L, Glucose 87, Calcium 8.9, Phosphorus 4.3, Magnesium 2.0, Total Bilirubin 0.3, AST 31, ALT 16, Alkaline Phosphatase 120, Total Protein 5.8 L, Albumin 3.1 L, Globulin 2.7, Albumin/Globulin Ratio 1.1 I & O for Labs for Last 24 Hours: Intake & Output 08/07/23 08/08/23 08/09/23 08/10/23 23:59 23:59 23:59 23:59 Intake Total 350 / 350 Output Total 1250 / 1250 600 / 600 Balance -1250 / -900 -250 / -250 Weight 145.15 kg 145 kg 149.4 kg Constitutional: Present mild distress, morbidly obese, chronically ill appearing and cooperative Head: Present atraumatic and normocephalic ENT: Present normal exam Neck: Present normal inspection Respiratory: Present accessory muscle use, prolonged expiratory phase and crackles (bases); Absent rhonchi or wheezes Comment:: BiPAP in place Cardiac: Present Reg Rate and Rhythm GI: Present soft and normal bowel sounds; Absent distention or tenderness Extremities: Present normal inspection, full ROM and edema (2+ in BLE to thighs) Skin: Present intact; Absent erythema Comment:: dry, scale on BLE Neuro: Present Grossly Intact, alert, awake and moves all extremities Comment:: Oriented to self and place Assessment and Plan *Assessment and plan (1) Respiratory failure with hypoxia and hypercapnia: Status: Acute Category: Medical Code(s): J96.91 - Respiratory failure, unspecified with hypoxia; J96.92 - Respiratory failure, unspecified with hypercapnia (2) Pneumonia: Status: Acute Category: Medical Code(s): J18.9 - Pneumonia, unspecified organism (3) Morbid obesity: Status: Acute Category: Medical Code(s): E66.01 - Morbid (severe) obesity due to excess calories (4) SHAYLA (acute kidney injury): Status: Acute Category: Medical Code(s): N17.9 - Acute kidney failure, unspecified (5) Congestive cardiac failure: Status: Acute Qualifiers: Heart failure type: unspecified Heart failure chronicity: unspecified Qualified Code(s): I50.9 - Heart failure, unspecified Category: Medical Code(s): I50.9 - Heart failure, unspecified (6) Chronic kidney disease: Status: Acute Qualifiers: Chronic kidney disease stage: stage 4 (severe) Qualified Code(s): N18.4 - Chronic kidney disease, stage 4 (severe) Category: Medical Code(s): N18.9 - Chronic kidney disease, unspecified (7) Major depression: Status: Chronic Qualifiers: Major depression recurrence: recurrent Active/Remission status: currently active Major depression episode severity: severe Psychotic features: with psychotic features Qualified Code(s): F33.3 - Major depressive disorder, recurrent, severe with psychotic symptoms Category: Medical Code(s): F32.9 - Major depressive disorder, single episode, unspecified (8) Seizure disorder: Status: Acute Category: Medical Code(s): G40.909 - Epilepsy, unspecified, not intractable, without status epilepticus Plan 63-year-old female with PMHx of morbid obesity, lymphedema, heart failure who s tates she takes inhalers but has not taken them since yesterday presents to the ER with concerns of chest pain and shortness of breath. Presented to the ER via EMS altered and respiratory distress. Placed on BiPAP. Medicine consulted for admission. Patient necessitating inpatient management. Medicine agreed to admit. Treated respiratory failure with BiPAP overnight. Pulmonology consulted. Continues to require continuous BiPAP. VBG this morning shows persistent hypercapnic respiratory failure. Problems addressed as follows: -Respiratory failure with hypercapnia: respiratory acidosis suspected COPD exacerbation versus pneumonia can not rule out Congestive cardiac failure: Pulmonology consulted, discussed case, recommend continuing BiPAP with settings changed to 10/20, FiO2 40%, rate 22. Hypercarbia improving but persistent -Continue broad-spectrum antibiotics with ceftriaxone and azithromycin daily -Continue DuoNebs every 4 hour along with Pulmicort every 12 hours. -Continue methylprednisolone 60 mg IV daily -White cell count 6.5 this morning. Hemoglobin 11.4. -Bumex 1 mg IV x 1 today. Monitor for output. -Repeat CBC, CMP, magnesium ordered for the morning. -Reevaluate need for Lasix in the morning. SHAYLA: BUN 43, creatinine 2.2. This is around her baseline. Caution with nephrotoxins. Renally dose medications. Mood disorder: Continue Abilify 5 mg daily, BuSpar 20 mg daily Seizure disorder: Continue Keppra 500 Tran twice daily Hypertension: Continue propranolol 20 mg nightly, verapamil 120 mg nightly Morbidly obese: Complicates all aspects of her care Heparin SQ twice daily Full code Protonix -N.p.o. while on BiPAP
[2023-08-10] MEDS: VENLAFAXINE XR 75MG CAPSULE 75 MG PO (08:21)
[2023-08-10] MEDS: levETIRAcetam 500 MG TABLET PO ×2 (08:21→20:12)
[2023-08-10] MEDS: METHYLPREDNISOLONE SOD SUCC 125MG VIAL 60 MG IV (08:21)
[2023-08-10] MEDS: MAGNESIUM OXIDE 400MG TABLET 400 MG PO (08:21)
[2023-08-10] MEDS: HEPARIN SODIUM 5,000 UNIT/ML VIAL 5000 UNIT SQ ×2 (08:21→20:12)
[2023-08-10] MEDS: BUSPIRONE HCL 10 MG TABLET 20 MG PO (08:22)
[2023-08-10] MEDS: NYSTATIN TOPICAL POWDER 30GM TP ×4 (08:22→20:12)
[2023-08-10] MEDS: ARIPiprazole 10MG TABLET 5 MG PO (08:23)
[2023-08-10 10:20] LABS: Lactate Venous 1.1 mmol/L (0.4-2.0); VBG Base Excess 4.9 mmol/L (-2.4-2.3); VBG HCO3 31.8 mmol/L (23-30); VBG Oxygen Saturation 88.9 % (50-70); VBG PH 7.27 mmol/L (7.31-7.41); VBG PO2 60.4 mmol/L (28-40); VBG Total CO2 33.9 mmol/L (23-27)
[2023-08-10 10:25] LABS: VBG PCO2 70.1 mmol/L (35-51)
[2023-08-10] MEDS: BUMETANIDE 1MG/4ML VIAL 1 MG IV (11:18)
--- NOTE | 2023-08-10 14:38 | XR_ITS ---
PROCEDURE INFORMATION: Exam: XR Chest Exam date and time: 08/10/2023 3:22 PM Age: 63 years old Clinical indication: Other vascular access device placement or adjustment; Other: Central line; Additional info: Confirm central line placement TECHNIQUE: Imaging protocol: Radiologic exam of the chest. Views: 1 view. Total images: 2 COMPARISON: CR XR CHEST PORTABLE 06/19/2023 2:11 PM FINDINGS: Tubes, catheters and devices: Left-sided central catheter is in place with the tip overlying the proximal portion of the superior vena cava. Lungs: Atelectatic changes noted within both lung bases. Bilateral hyperinflation is present. Pleural spaces: No evidence of pneumothorax. No pleural effusions. Heart/Mediastinum: The heart is not enlarged. Bones/joints: Scoliotic curvature of the thoracic spine with mild degenerative changes. IMPRESSION: 1. Left-sided central catheter is in place with the tip overlying the proximal portion of the superior vena cava. 2. Atelectatic changes noted within both lung bases. 3. Bilateral hyperinflation is present. 4. No evidence of pneumothorax.
[2023-08-10 14:47] LABS: Lactate Venous 1.2 mmol/L (0.4-2.0); VBG Base Excess 3.4 mmol/L (-2.4-2.3); VBG HCO3 30.1 mmol/L (23-30); VBG Oxygen Saturation 87.6 % (50-70); VBG PH 7.28 mmol/L (7.31-7.41); VBG PO2 55.5 mmol/L (28-40); VBG Total CO2 32.1 mmol/L (23-27)
[2023-08-10 14:52] LABS: VBG PCO2 65.1 mmol/L (35-51)
--- NOTE | 2023-08-10 15:13 | PC.NURSE ---
Bipap settings changed to 05/04, 22, 50%. Per
[2023-08-10] MEDS: PROPRANOLOL 20MG TAB 20 MG PO (17:47)
[2023-08-10] MEDS: CEFTRIAXONE 1 GM 1 GM in 0.9 % SODIUM CHLORIDE 50 ML IV (20:12)
[2023-08-10] MEDS: PANTOPRAZOLE 40MG VIAL 40 MG IV (20:12)
[2023-08-10] MEDS: VERAPAMIL SR 120MG TABLET 120 MG PO (20:12)
[2023-08-10] MEDS: ROPINIROLE 1MG TABLET 1 MG PO (20:12)
[2023-08-10] MEDS: SODIUM CHLORIDE 0.9% 10ML VIAL 10 ML IV (20:12)
[2023-08-10] MEDS: AZITHROMYCIN 500 MG in 0.9 % SODIUM CHLORIDE 250 ML 250 MG IV (21:29)
[2023-08-11] VITALS (27 sets, daily range): BP systolic 99–140; BP diastolic 51–83; PULSE 64–87; RESP 16–24; TEMP 36.9–37.1; O2SAT 90–100; BMI 64.8
[2023-08-11] MEDS: IPRATROPIUM/ALBUTEROL 3 ML NEB IH ×6 (01:32→21:34)
--- NOTE | 2023-08-11 05:06 | PC.NURSE ---
Patient has had a decent night. Has not slept much. Maybe a little off and on. Patient has been more restless with the bipap and wanting it off. Patient does understand that she needs the Bipap but she would like a break from it. PAtient did state she was hungry and would like it eat. Patient has remained NPO. Patient did receive oral care when giving medication and was given a bath. No other issue through the night.
[2023-08-11 06:17] LABS: Basophils % 0.5 % (0.1-2.0); Eosinophils # 0.1 K/mm3 (0.0-0.4); Eosinophils % 1.2 % (0.1-12.0); Hematocrit 35.2 % (37.0-47.0); Hemoglobin 10.8 g/dL (12.2-16.2); Lymphocytes # 1.1 K/mm3 (0.7-4.5); Lymphocytes % 19.2 % (10-50); Mean Corpuscular HGB Conc 30.8 g/dL (31.8-35.4); Mean Corpuscular Hemoglobin 30.2 pg (27.0-31.2); Mean Corpuscular Volume 98.1 fl (81-99); Mean Platelet Volume 8.2 fl (7.4-10.4); Monocytes # 0.5 K/mm3 (0.1-1.0); Monocytes % 8.5 % (1.7-9.3); Neutrophils # 4.1 K/mm3 (1.8-7.8); Neutrophils % 70.7 % (37.0-80.0); Platelet Count 139 K/mm3 (142-424); Red Blood Count 3.59 M/mm3 (4.20-5.40); Red Cell Distribution Width 14.3 % (11.5-17.5); White Blood Count 5.7 K/mm3 (4.8-10.8)
[2023-08-11 06:19] LABS: Chloride 104 mmol/L (98-107); Sodium 140 mmol/L (136-145)
[2023-08-11 06:20] LABS: Potassium 4.8 mmoL/L (3.5-5.1)
[2023-08-11 06:22] LABS: Alanine Aminotransferase 17 U/L (12-78); Alkaline Phosphatase 102 U/L (38-126); Anion Gap 5.8 mEq/L (5-15); Aspartate Amino Transferase 30 U/L (14-36); Bilirubin,Total 0.4 mg/dl (0.2-1.3); Blood Urea Nitrogen 51 mg/dl (7-17); Carbon Dioxide 35 mmol/L (22.0-30.0); Creatinine Clearance Estimated 19 mL/min (50-200); Estimated Glomerular Filt Rate 25 ml/min (>60); GFR (African American) 30 ML/MIN (>60)
[2023-08-11 06:23] LABS: Albumin/Globulin Ratio 1.2 (1.1-1.8); Calcium 8.7 mg/dl (8.4-10.2); Globulin 2.6 g/dL (1.3-3.2); Glucose 70 mg/dl (74-100); Total Protein,Serum 5.6 g/dl (6.3-8.2)
[2023-08-11 06:31] LABS: Magnesium 2.1 mg/dl (1.6-2.3)
[2023-08-11] MEDS: BUDESONIDE 0.5MG/2ML NEB 0.5 MG IH ×2 (06:43→18:28)
[2023-08-11 07:02] LABS: Lactate Venous 1.1 mmol/L (0.4-2.0); VBG HCO3 30.5 mmol/L (23-30); VBG Oxygen Saturation 83.9 % (50-70); VBG PO2 51.2 mmol/L (28-40); VBG Total CO2 32.4 mmol/L (23-27)
[2023-08-11 07:05] LABS: VBG PCO2 63.8 mmol/L (35-51)
--- NOTE | 2023-08-11 07:49 | EXP.ACUTE.PN ---
Subjective *Date: 08/11/23 *Time: 13:34 Interval history: Patient more alert this morning. Appears at baseline mentation. Blood gas stable with pH 7.3. Wore BiPAP overnight. Getting a break this morning on nasal cannula. Patient complains of being hungry. Denies chest pain, nausea, vomiting. Afebrile overnight. Medical Exam Vital signs and Labs for Last 24 Hours: Vital Signs Temp Pulse Pulse Resp BP Pulse Ox O2 Del Method 08/11/23 07:37 98.5 F 08/11/23 06:58 BiPAP 08/11/23 06:43 64 08/11/23 06:43 68 08/11/23 06:43 08/11/23 06:00 77 22 122/57 L 100 BiPAP 08/11/23 05:00 BiPAP 08/11/23 04:00 80 08/11/23 04:00 77 22 115/83 100 BiPAP 08/11/23 04:00 BiPAP 08/11/23 03:00 BiPAP 08/11/23 02:04 83 08/11/23 02:04 77 08/11/23 02:00 77 22 119/51 L 100 BiPAP 08/11/23 01:00 BiPAP 08/11/23 00:00 80 08/11/23 00:00 69 23 140/64 100 BiPAP 08/10/23 23:19 83 08/10/23 23:19 81 08/10/23 23:00 BiPAP 08/10/23 22:00 70 24 124/65 100 BiPAP 08/10/23 21:00 BiPAP 08/10/23 20:02 08/10/23 20:01 84 08/10/23 20:01 83 08/10/23 20:00 70 08/10/23 20:00 71 22 121/70 96 BiPAP 08/10/23 20:00 BiPAP 08/10/23 19:00 BiPAP 08/10/23 18:00 66 22 139/76 97 BiPAP 08/10/23 17:00 BiPAP 08/10/23 16:00 85 08/10/23 16:00 BiPAP 08/10/23 16:00 81 22 129/66 97 BiPAP 08/10/23 16:00 98.2 F 08/10/23 15:00 BiPAP 08/10/23 14:11 86 08/10/23 14:11 83 08/10/23 14:11 08/10/23 14:00 86 22 128/66 98 BiPAP 08/10/23 13:00 BiPAP 08/10/23 12:00 84 08/10/23 12:00 98.5 F 85 22 118/64 96 BiPAP 08/10/23 10:59 BiPAP 08/10/23 10:07 92 H 08/10/23 10:07 83 08/10/23 10:07 08/10/23 10:00 82 18 131/65 98 BiPAP 08/10/23 09:00 BiPAP 08/10/23 08:00 87 08/10/23 08:00 88 20 130/80 93 L BiPAP 08/10/23 08:00 BiPAP FiO2 08/11/23 07:37 08/11/23 06:58 08/11/23 06:43 08/11/23 06:43 08/11/23 06:43 50 08/11/23 06:00 08/11/23 05:00 08/11/23 04:00 08/11/23 04:00 08/11/23 04:00 08/11/23 03:00 08/11/23 02:04 08/11/23 02:04 08/11/23 02:00 08/11/23 01:00 08/11/23 00:00 08/11/23 00:00 08/10/23 23:19 08/10/23 23:19 08/10/23 23:00 08/10/23 22:00 08/10/23 21:00 08/10/23 20:02 40 08/10/23 20:01 08/10/23 20:01 08/10/23 20:00 08/10/23 20:00 08/10/23 20:00 08/10/23 19:00 08/10/23 18:00 08/10/23 17:00 08/10/23 16:00 08/10/23 16:00 08/10/23 16:00 08/10/23 16:00 08/10/23 15:00 08/10/23 14:11 08/10/23 14:11 08/10/23 14:11 40 08/10/23 14:00 08/10/23 13:00 08/10/23 12:00 08/10/23 12:00 08/10/23 10:59 08/10/23 10:07 08/10/23 10:07 08/10/23 10:07 40 08/10/23 10:00 08/10/23 09:00 08/10/23 08:00 08/10/23 08:00 08/10/23 08:00 Intake and Output 08/10/23 08/10/23 08/11/23 15:59 23:59 07:59 Intake Total 350 / 350 Output Total 900 / 1900 0 / 1900 400 / 400 Balance -900 / -1200 0 / -1200 -50 / -50 Intake: Intake, Oral Amount 0 / 0 Intake, Total IV Amount 350 / 350 Azithromycin 500 mg In 0.9 % 250 / 250 Sodium Chloride 250 ml @ 250 mls/hr IV Q24H [facility] Rx#:[id number] Ceftriaxone 1 gm 1 gm In 0.9 % 100 / 100 Sodium Chloride 50 ml @ 100 mls /hr IV Q24H [facility] Rx#:[id number] Output: Output, Urine Amount 900 / 1500 0 / 1500 0 / 0 Output, Urine Amount (Catheter) 400 / 400 Pérez 400 / 400 Other: Number of Unmeasured Voids 0 0 Weight 149.8 kg Patient Weight 08/11/23 23:59 Weight 149.8 kg Laboratory Results - last 24 hr 08/10/23 09:40: VBG pH 7.27 L, VBG pCO2 70.1 H, VBG pO2 60.4 H, VBG HCO3 31.8 H, VBG Total CO2 33.9 H, VBG O2 Saturation 88.9 H, VBG Base Excess 4.9 H, VBG Lactic Acid 1.1 08/10/23 14:43: VBG pH 7.28 L, VBG pCO2 65.1 H, VBG pO2 55.5 H, VBG HCO3 30.1 H, VBG Total CO2 32.1 H, VBG O2 Saturation 87.6 H, VBG Base Excess 3.4 H, VBG Lactic Acid 1.2 08/11/23 06:00: WBC 5.7, RBC 3.59 L, Hgb 10.8 L, Hct 35.2 L, MCV 98.1, MCH 30.2, MCHC 30.8 L, RDW 14.3, Plt Count 139 L, MPV 8.2, Neut % (Auto) 70.7, Lymph % (Auto) 19.2, [place] % (Auto) 8.5, Eos % (Auto) 1.2, Baso % (Auto) 0.5, Neut # (Auto) 4.1, Lymph # (Auto) 1.1, [place] # (Auto) 0.5, Eos # (Auto) 0.1, Baso # (Auto) 0.0, Sodium 140, Potassium 4.8, Chloride 104, Carbon Dioxide 35 H, Anion Gap 5.8, BUN 51 H, Creatinine 2.00 H, Estimated Creat Clear 19, Estimated GFR 25 L, Est GFR ( Amer) 30 L, Glucose 70 L, Calcium 8.7, Magnesium 2.1, Total Bilirubin 0.4, AST 30, ALT 17, Alkaline Phosphatase 102, Total Protein 5.6 L, Albumin 3.0 L, Globulin 2.6, Albumin/Globulin Ratio 1.2 08/11/23 06:41: VBG pH 7.30 L, VBG pCO2 63.8 H, VBG pO2 51.2 H, VBG HCO3 30.5 H, VBG Total CO2 32.4 H, VBG O2 Saturation 83.9 H, VBG Base Excess 4.0 H, VBG Lactic Acid 1.1 I & O for Labs for Last 24 Hours: Intake & Output 08/08/23 08/09/23 08/10/23 08/11/23 23:59 23:59 23:59 23:59 Intake Total 350 / 700 350 / 350 Output Total 1250 / 1250 1500 / 1900 400 / 400 Balance -1250 / -900 -1150 / -1200 -50 / -50 Weight 145.15 kg 145 kg 149.4 kg 149.8 kg Constitutional: Present no acute distress, morbidly obese, chronically ill appearing and cooperative Head: Present atraumatic and normocephalic ENT: Present normal exam Neck: Present normal inspection Respiratory: Present accessory muscle use, prolonged expiratory phase and crackles (bases); Absent rhonchi or wheezes Comment:: BiPAP in place Cardiac: Present Reg Rate and Rhythm GI: Present soft and normal bowel sounds; Absent distention or tenderness Extremities: Present normal inspection, full ROM and edema (2+ in BLE to thighs) Skin: Present intact; Absent erythema Comment:: dry, scale on BLE Neuro: Present Grossly Intact, alert, awake and moves all extremities Comment:: Oriented to self and place Assessment and Plan *Assessment and plan (1) Respiratory failure with hypoxia and hypercapnia: Status: Acute Category: Medical Code(s): J96.91 - Respiratory failure, unspecified with hypoxia; J96.92 - Respiratory failure, unspecified with hypercapnia (2) Pneumonia: Status: Acute Category: Medical Code(s): J18.9 - Pneumonia, unspecified organism (3) Morbid obesity: Status: Acute Category: Medical Code(s): E66.01 - Morbid (severe) obesity due to excess calories (4) SHAYLA (acute kidney injury): Status: Acute Category: Medical Code(s): N17.9 - Acute kidney failure, unspecified (5) Congestive cardiac failure: Status: Acute Qualifiers: Heart failure chronicity: unspecified Heart failure type: unspecified Qualified Code(s): I50.9 - Heart failure, unspecified Category: Medical Code(s): I50.9 - Heart failure, unspecified (6) Chronic kidney disease: Status: Acute Qualifiers: Chronic kidney disease stage: stage 4 (severe) Qualified Code(s): N18.4 - Chronic kidney disease, stage 4 (severe) Category: Medical Code(s): N18.9 - Chronic kidney disease, unspecified (7) Major depression: Status: Chronic Qualifiers: Active/Remission status: currently active Major depression episode severity: severe Major depression recurrence: recurrent Psychotic features: with psychotic features Qualified Code(s): F33.3 - Major depressive disorder, recurrent, severe with psychotic symptoms Category: Medical Code(s): F32.9 - Major depressive disorder, single episode, unspecified (8) Seizure disorder: Status: Acute Category: Medical Code(s): G40.909 - Epilepsy, unspecified, not intractable, without status epilepticus Plan 63-year-old female with PMHx of morbid obesity, lymphedema, heart failure who states she takes inhalers but has not taken them since yesterday presents to the ER with concerns of chest pain and shortness of breath. Presented to the ER via EMS altered and respiratory distress. Placed on BiPAP. Medicine consulted for admission. Patient necessitating inpatient management. Medicine agreed to admit. Treated respiratory failure with BiPAP overnight. Pulmonology consulted. Gas stable this morning. pH 7.3. Taking a break from BiPAP. Repeat VBG and will reevaluate needs for BiPAP continuous versus just when sleeping. Continues to require inpatient management. Problems addressed as follows: -Respiratory failure with hypercapnia: respiratory acidosis suspected COPD exacerbation versus pneumonia can not rule out Congestive cardiac failure: Pulmonology consulted, appreciate their assistance in care. recommend continuing BiPAP, setting adjustments pending gas after break this morning from BiPAP. Continue supplemental oxygen for sats greater than 90%. -Continue broad-spectrum antibiotics with ceftriaxone and azithromycin daily -Continue DuoNebs every 4 hour along with Pulmicort every 12 hours. -Continue methylprednisolone 60 mg IV daily -White cell count 5.7, hemoglobin 10.8. Repeat CBC, CMP, magnesium ordered for the morning -Bumex 1 mg IV x 1 today. Monitor for output. -Repeat CBC, CMP, magnesium ordered for the morning. SHAYLA: BUN 51, creatinine 2.2. This is around her baseline. Caution with nephrotoxins. Renally dose medications. Mood disorder: Continue Abilify 5 mg daily, BuSpar 20 mg daily Seizure disorder: Continue Keppra 500 Tran twice daily Hypertension: Continue propranolol 20 mg nightly, verapamil 120 mg nightly Morbidly obese: Complicates all aspects of her care Heparin SQ twice daily Full code Protonix Will allow her to drink while off BiPAP. Advance diet pending respiratory support needs.
[2023-08-11 08:11] LABS: ABG Base Excess 5.8 mmol/L (-2.4-2.3); ABG HCO3 32.3 mmhg (22.0-26.0); ABG Oxygen Saturation 99 % (90-100); ABG PO2 132.3 mmhg (80-100); ABG TCO2 34.4 mmhg (23-27)
[2023-08-11 08:12] LABS: Oxygen 50% Bipap22/12 %
[2023-08-11 08:13] LABS: Allen's Test Patient Unable; Source Right Radial; Vent Rate 22
[2023-08-11 08:15] LABS: ABG PCO2 67.6 mmhg (35.0-45.0)
[2023-08-11] MEDS: VENLAFAXINE XR 75MG CAPSULE 75 MG PO (08:35)
[2023-08-11] MEDS: MAGNESIUM OXIDE 400MG TABLET 400 MG PO (08:35)
[2023-08-11] MEDS: METHYLPREDNISOLONE SOD SUCC 125MG VIAL 60 MG IV (08:36)
[2023-08-11] MEDS: BUSPIRONE HCL 10 MG TABLET 20 MG PO (08:36)
[2023-08-11] MEDS: HEPARIN SODIUM 5,000 UNIT/ML VIAL 5000 UNIT SQ ×2 (08:36→20:04)
[2023-08-11] MEDS: NYSTATIN TOPICAL POWDER 30GM TP ×4 (08:37→20:03)
[2023-08-11] MEDS: levETIRAcetam 500 MG TABLET PO ×2 (08:37→20:03)
[2023-08-11] MEDS: ARIPiprazole 10MG TABLET 5 MG PO (08:37)
--- NOTE | 2023-08-11 09:40 | PC.NURSE ---
0836 Pt placed on 4 lpm nc per v/o from Dr austin for pt to receive am meds. pt able to take meds with no issue with pepsi to drink. pt ok to be off of bipap for 2 hours, then placed back on bipap by RT with new settings. vbg/abg to be drawn 4 hrs after initiation of new settings per RT. RT notified pt off of bipap at 0836
[2023-08-11] MEDS: BUMETANIDE 1MG/4ML VIAL 1 MG IV (14:27)
[2023-08-11 14:36] LABS: Lactate Venous 1.2 mmol/L (0.4-2.0); VBG HCO3 31.7 mmol/L (23-30); VBG Oxygen Saturation 82.9 % (50-70); VBG PH 7.28 mmol/L (7.31-7.41); VBG PO2 50.2 mmol/L (28-40); VBG Total CO2 33.8 mmol/L (23-27)
[2023-08-11 14:38] LABS: VBG PCO2 68.7 mmol/L (35-51)
[2023-08-11] MEDS: PROPRANOLOL 20MG TAB 20 MG PO (17:10)
[2023-08-11] MEDS: ROPINIROLE 1MG TABLET 1 MG PO (20:03)
[2023-08-11] MEDS: PANTOPRAZOLE 40MG VIAL 40 MG IV (20:03)
[2023-08-11] MEDS: VERAPAMIL SR 120MG TABLET 120 MG PO (20:03)
[2023-08-11] MEDS: CEFTRIAXONE 1 GM 1 GM in 0.9 % SODIUM CHLORIDE 50 ML IV (20:03)
[2023-08-11] MEDS: AZITHROMYCIN 500 MG in 0.9 % SODIUM CHLORIDE 250 ML 250 MG IV (21:22)
[2023-08-12] VITALS (16 sets, daily range): BP systolic 102–129; BP diastolic 42–66; PULSE 63–80; RESP 14–25; TEMP 36.4–37.2; O2SAT 91–100; BMI 64.0
--- NOTE | 2023-08-12 05:15 | PC.NURSE ---
Patient has had a decent night. The patient got to sleep off and on. Patient is expressing concern on how long she will have to wear the bipap as she is tired of wearing it so much. Patient educated that it is important to wear it for now as it is helping her breathing. Patient is still agreeable to wear it. When RN came on shift patient was on 4L NC stating appropriately and AxO x4. Patient did have a large BM this shift and got cleaned up and had a bath and linens were changed. No other issues noted
[2023-08-12 05:44] LABS: Chloride 104 mmol/L (98-107); Potassium 4.3 mmoL/L (3.5-5.1); Sodium 140 mmol/L (136-145)
[2023-08-12 05:46] LABS: Blood Urea Nitrogen 51 mg/dl (7-17); Creatinine Clearance Estimated 21 mL/min (50-200); Estimated Glomerular Filt Rate 28 ml/min (>60); GFR (African American) 34 ML/MIN (>60)
[2023-08-12 05:47] LABS: Alanine Aminotransferase 17 U/L (12-78); Albumin Level 2.9 g/dl (3.5-5.0); Alkaline Phosphatase 106 U/L (38-126); Anion Gap 4.3 mEq/L (5-15); Aspartate Amino Transferase 30 U/L (14-36); Bilirubin,Total 0.5 mg/dl (0.2-1.3); Calcium 8.7 mg/dl (8.4-10.2); Carbon Dioxide 36 mmol/L (22.0-30.0); Globulin 2.9 g/dL (1.3-3.2); Glucose 83 mg/dl (74-100); Total Protein,Serum 5.8 g/dl (6.3-8.2)
[2023-08-12] MEDS: BUDESONIDE 0.5MG/2ML NEB 0.5 MG IH (06:50)
[2023-08-12] MEDS: IPRATROPIUM/ALBUTEROL 3 ML NEB IH ×2 (06:50→09:15)
--- NOTE | 2023-08-12 07:25 | PC.NURSE ---
pt noted at 88% on 3L NC. Turned pt from 3 to 4L NC noted at 92% tolerating well.
--- NOTE | 2023-08-12 07:54 | P.PN_ITS ---
Subjective *Date: 08/12/23 *Time: 07:54 Medical Exam Vital signs and Labs for Last 24 Hours: Vital Signs Temp Pulse Pulse Resp BP Pulse Ox O2 Del Method 08/12/23 07:30 92 L Nasal Cannula 08/12/23 06:51 BiPAP 08/12/23 06:50 75 08/12/23 06:50 75 08/12/23 06:50 94 L Nasal Cannula 08/12/23 06:00 73 24 109/52 L 96 BiPAP 08/12/23 05:00 BiPAP 08/12/23 04:00 68 08/12/23 04:00 99 F 68 24 118/63 92 L BiPAP 08/12/23 04:00 BiPAP 08/12/23 03:00 BiPAP 08/12/23 02:00 98.9 F 67 24 114/58 L 95 BiPAP 08/12/23 01:00 BiPAP 08/12/23 00:00 63 08/12/23 00:00 65 24 118/65 100 BiPAP 08/11/23 23:54 08/11/23 23:00 BiPAP 08/11/23 22:30 77 08/11/23 22:15 73 08/11/23 22:00 70 24 113/64 97 BiPAP 08/11/23 21:00 BiPAP 08/11/23 20:00 77 08/11/23 20:00 98.5 F 78 24 104/51 L 94 L BiPAP 08/11/23 20:00 Nasal Cannula 08/11/23 19:22 Nasal Cannula, CPAP 08/11/23 19:21 78 08/11/23 19:21 77 08/11/23 18:43 Nasal Cannula 08/11/23 18:00 70 20 105/83 L 94 L Nasal Cannula 08/11/23 17:14 Nasal Cannula 08/11/23 16:00 82 20 122/71 99 Nasal Cannula 08/11/23 16:00 78 08/11/23 15:52 Nasal Cannula 08/11/23 15:45 98 Nasal Cannula 08/11/23 15:40 98.5 F BiPAP 08/11/23 14:06 78 08/11/23 14:06 79 08/11/23 14:06 08/11/23 14:00 78 16 137/74 92 L BiPAP 08/11/23 13:15 BiPAP 08/11/23 12:11 82 08/11/23 12:00 75 18 128/54 L 100 BiPAP 08/11/23 11:15 BiPAP 08/11/23 11:13 98.8 F 87 100 BiPAP 08/11/23 10:56 08/11/23 10:39 85 08/11/23 10:39 85 08/11/23 10:39 99 Nasal Cannula 08/11/23 10:00 84 20 99/65 L 90 L Nasal Cannula 08/11/23 09:43 Nasal Cannula 08/11/23 08:00 81 08/11/23 08:00 82 20 115/57 L 100 BiPAP O2 Flow Rate FiO2 08/12/23 07:30 4 08/12/23 06:51 08/12/23 06:50 08/12/23 06:50 08/12/23 06:50 3 08/12/23 06:00 08/12/23 05:00 08/12/23 04:00 08/12/23 04:00 40 08/12/23 04:00 08/12/23 03:00 08/12/23 02:00 40 08/12/23 01:00 08/12/23 00:00 08/12/23 00:00 08/11/23 23:54 40 08/11/23 23:00 08/11/23 22:30 08/11/23 22:15 08/11/23 22:00 08/11/23 21:00 08/11/23 20:00 08/11/23 20:00 40 08/11/23 20:00 4 08/11/23 19:22 4 08/11/23 19:21 08/11/23 19:21 08/11/23 18:43 4 08/11/23 18:00 4 08/11/23 17:14 4 08/11/23 16:00 4 08/11/23 16:00 08/11/23 15:52 4 08/11/23 15:45 4 08/11/23 15:40 08/11/23 14:06 08/11/23 14:06 08/11/23 14:06 40 08/11/23 14:00 40 08/11/23 13:15 08/11/23 12:11 08/11/23 12:00 40 08/11/23 11:15 08/11/23 11:13 08/11/23 10:56 40 08/11/23 10:39 08/11/23 10:39 08/11/23 10:39 4 08/11/23 10:00 4 08/11/23 09:43 4 08/11/23 08:00 08/11/23 08:00 50 Intake and Output 08/11/23 08/11/23 08/12/23 15:59 23:59 07:59 Intake Total 488 / 1238 400 / 400 Output Total 900 / 1300 0 / 1300 700 / 700 Balance -900 / -62 488 / -62 -300 / -300 Intake: Intake, Oral Amount 488 / 588 100 / 100 Intake, Total IV Amount 300 / 300 Azithromycin 500 mg In 0.9 % 250 / 250 Sodium Chloride 250 ml @ 250 mls/hr IV Q24H [facility] Rx#:[id number] Ceftriaxone 1 gm 1 gm In 0.9 % 50 / 50 Sodium Chloride 50 ml @ 100 mls /hr IV Q24H [facility] Rx#:[id number] Output: Output, Urine Amount 900 / 900 0 / 900 0 / 0 Output, Urine Amount (Catheter) 700 / 700 Pérez 700 / 700 Other: Number of Unmeasured Voids 0 0 0 Number of Bowel Movements 1 1 Weight 148 kg Patient Weight 08/12/23 23:59 Weight 148 kg Laboratory Results - last 24 hr 08/11/23 08:10: Specimen Source Right radial, O2 % 50% bipap22/12, ABG pH 7.30 L , ABG pCO2 67.6 H, ABG pO2 132.3 H, ABG HCO3 32.3 H, ABG Total CO2 34.4 H, ABG O2 Saturation 99, ABG Base Excess 5.8 H, Allan Test Patient unable, Vent Rate 22 08/11/23 14:33: VBG pH 7.28 L, VBG pCO2 68.7 H, VBG pO2 50.2 H, VBG HCO3 31.7 H, VBG Total CO2 33.8 H, VBG O2 Saturation 82.9 H, VBG Base Excess 5.0 H, VBG Lactic Acid 1.2 08/12/23 05:30: Sodium 140, Potassium 4.3, Chloride 104, Carbon Dioxide 36 H, Anion Gap 4.3 L, BUN 51 H, Creatinine 1.80 H, Estimated Creat Clear 21, Estimated GFR 28 L, Est GFR ( Amer) 34 L, Glucose 83, Calcium 8.7, Total Bilirubin 0.5, AST 30, ALT 17, Alkaline Phosphatase 106, Total Protein 5.8 L, Albumin 2.9 L, Globulin 2.9, Albumin/Globulin Ratio 1.0 L I & O for Labs for Last 24 Hours: Intake & Output 08/09/23 08/10/23 08/11/23 08/12/23 23:59 23:59 23:59 23:59 Intake Total 350 / 700 838 / 1238 400 / 400 Output Total 1250 / 1250 1500 / 1900 1300 / 1300 700 / 700 Balance -1250 / -900 -1150 / -1200 -462 / -62 -300 / -300 Weight 145 kg 149.4 kg 149.8 kg 148 kg The patient's infection will respond to the chosen ABx?: Yes (SPUTUM UNCOLLECTED, AFEBRILE OVER 24 HR, RESP. FAILURE/COPD EXACERBATION) Is the patient receiving the right drug, dose, and route?: Yes Could a more targeted ABx be ordered?: No How long ABx needed (days)?: 7
[2023-08-12] MEDS: MAGNESIUM OXIDE 400MG TABLET 400 MG PO (08:06)
[2023-08-12] MEDS: HEPARIN SODIUM 5,000 UNIT/ML VIAL 5000 UNIT SQ ×2 (08:06→20:07)
[2023-08-12] MEDS: ARIPiprazole 10MG TABLET 5 MG PO (08:07)
[2023-08-12] MEDS: METHYLPREDNISOLONE SOD SUCC 125MG VIAL 60 MG IV (08:07)
[2023-08-12] MEDS: BUMETANIDE 1MG/4ML VIAL 1 MG IV (08:07)
[2023-08-12] MEDS: BUSPIRONE HCL 10 MG TABLET 20 MG PO (08:07)
[2023-08-12] MEDS: levETIRAcetam 500 MG TABLET PO ×2 (08:07→20:07)
[2023-08-12] MEDS: VENLAFAXINE XR 75MG CAPSULE 75 MG PO (08:07)
[2023-08-12] MEDS: NYSTATIN TOPICAL POWDER 30GM TP ×4 (08:08→20:15)
--- NOTE | 2023-08-12 09:15 | PC.NURSE ---
pt/ot at bedside
--- NOTE | 2023-08-12 09:23 | P.PN_ITS ---
Subjective *Date: 08/12/23 *Time: 13:23 Interval history: No acute respiratory events overnight. Pulmonology Exam Inpatient Vital signs and Labs for Last 24 Hours: Temp Pulse Resp BP Pulse Ox O2 Del Method O2 Flow Rate 99 F 80 16 104/50 L 91 L Nasal Cannula 4 08/12/23 04:00 08/12/23 09:16 08/12/23 08:05 08/12/23 08:05 08/12/23 08:05 08/12/23 08:05 08/12/23 08:05 FiO2 40 08/12/23 04:00 Laboratory Results - last 24 hr 08/11/23 14:33: VBG pH 7.28 L, VBG pCO2 68.7 H, VBG pO2 50.2 H, VBG HCO3 31.7 H, VBG Total CO2 33.8 H, VBG O2 Saturation 82.9 H, VBG Base Excess 5.0 H, VBG Lactic Acid 1.2 08/12/23 05:30: Sodium 140, Potassium 4.3, Chloride 104, Carbon Dioxide 36 H, Anion Gap 4.3 L, BUN 51 H, Creatinine 1.80 H, Estimated Creat Clear 21, Estimated GFR 28 L, Est GFR ( Amer) 34 L, Glucose 83, Calcium 8.7, Total Bilirubin 0.5, AST 30, ALT 17, Alkaline Phosphatase 106, Total Protein 5.8 L, Albumin 2.9 L, Globulin 2.9, Albumin/Globulin Ratio 1.0 L Temp Pulse Resp BP Pulse Ox O2 Del Method O2 Flow Rate 98.0 F 90 14 123/56 L 94 L BiPAP 10 08/09/23 05:28 08/09/23 06:00 08/09/23 06:00 08/09/23 06:00 08/09/23 06:00 08/09/23 06:45 08/08/23 23:45 FiO2 35 08/09/23 05:15 Laboratory Results - last 24 hr 08/08/23 23:46: VBG pH 7.24 L, VBG pCO2 72.9 H, VBG pO2 196.2 H, VBG HCO3 30.5 H , VBG Total CO2 32.8 H, VBG O2 Saturation 99.1 H, VBG Base Excess 3.1 H, VBG Lactic Acid 0.9 08/09/23 00:01: Sodium 142, Potassium 5.3 H, Chloride 104, Carbon Dioxide 36 H, Anion Gap 7.3, BUN 40 H, Creatinine 2.30 H, Estimated Creat Clear 18, Estimated GFR 21 L, Est GFR ( Amer) 26 L, Glucose 108 H, Calcium 8.8, Total Bilirubin 0.4, AST 32, ALT 15, Alkaline Phosphatase 139 H, Troponin I < 0.01, NT-Pro-B Natriuret Pep 7950 H, Total Protein 6.9, Albumin 3.7, Globulin 3.2, Albumin/Globulin Ratio 1.2 08/09/23 01:07: WBC 4.7 L, RBC 4.19 L, Hgb 12.8, Hct 43.3, MCV 103.4 H, MCH 30.7, MCHC 29.6 L, RDW 14.5, Plt Count 137 L, MPV 8.4, Neut % (Auto) 69.2, Lymph % (Auto) 23.1, Hooker % (Auto) 6.6, Eos % (Auto) 0.4, Baso % (Auto) 0.7, Neut # (Auto) 3.3, Lymph # (Auto) 1.1, Hooker # (Auto) 0.3, Eos # (Auto) 0.0, Baso # (Auto) 0.0, Lactate 0.8 08/09/23 02:24: Urine Color Yellow, Urine Appearance Clear, Urine pH 5.5, Ur Specific [place] 1.025, Urine Protein Negative, Urine Glucose (UA) Negative, Urine Ketones Negative, Urine Blood Negative, Urine Nitrate Negative, Urine Bilirubin Negative, Urine Urobilinogen 0.2, Ur Leukocyte Esterase Negative, Urine RBC None, Urine WBC Occasional, Ur Squamous Epith Cells 3-5, Urine Bacteria Trace 08/09/23 02:48: VBG pH 7.17 L, VBG pCO2 78.8 H, VBG pO2 109.7 H, VBG HCO3 28.0, VBG Total CO2 30.4 H, VBG O2 Saturation 97.8 H, VBG Base Excess -0.6, VBG Lactic Acid 1.0 08/09/23 03:09: Troponin I < 0.01 08/09/23 03:53: VBG pH 7.19 L, VBG pCO2 66.1 H, VBG pO2 50.8 H, VBG HCO3 24.7, VBG Total CO2 26.8, VBG O2 Saturation 86.2 H, VBG Base Excess -3.4 L, VBG Lactic Acid 1.5 08/09/23 : WBC 6.4 D, RBC 3.96 L, Hgb 12.2, Hct 40.8, MCV 102.9 H, MCH 30.7, MCHC 29.8 L, RDW 14.6, Plt Count 137 L, MPV 10.3, Neut % (Auto) 92.8 H, Lymph % (Auto) 5.5 L, Hooker % (Auto) 1.5 L, Eos % (Auto) 0.1, Baso % (Auto) 0.0 L, Neut # (Auto) 6.0, Lymph # (Auto) 0.4 L, Hooker # (Auto) 0.1, Eos # (Auto) 0.0, Baso # (Auto) 0.0, Total Counted 100, Neutrophils % (Manual) 91 H, Lymphocytes % (Manual) 6 L, Monocytes % (Manual) 3, Platelet Estimate Slight decrease, Hypochromasia 1+, Macrocytosis 1+, Sodium 142, Potassium 4.8, Chloride 105, Carbon Dioxide 35 H, Anion Gap 6.8, BUN 38 H, Creatinine 2.40 H, Estimated Creat Clear 17, Estimated GFR 20 L, Est GFR ( Amer) 25 L, Glucose 155 H D, Calcium 8.7, Magnesium 1.9, Total Bilirubin 0.3, AST 27, ALT 18, Alkaline Phosphatase 144 H, Troponin I 0.01, Total Protein 6.4, Albumin 3.3 L D, Globulin 3.1, Albumin/Globulin Ratio 1.1 I & O for Labs for Last 24 Hours: Intake & Output 08/09/23 08/10/23 08/11/23 08/12/23 23:59 23:59 23:59 23:59 Intake Total 350 / 700 838 / 1238 400 / 400 Output Total 1250 / 1250 1500 / 1900 1300 / 1300 700 / 700 Balance -1250 / -900 -1150 / -1200 -462 / -62 -300 / -300 Weight 319 lb 10.724 oz 329 lb 5.93 oz 330 lb 4.039 oz 326 lb 4.546 oz Intake & Output 04/08/07/23 08/08/23 08/09/23 23:59 23:59 23:59 23:59 Output Total 150 / 150 Balance -150 / -150 Weight 320 lb Constitutional: Present moderate distress Head: Present normocephalic and atraumatic ENT: Present normal exam, normal oropharynx and mucous membranes moist Neck: Present normal inspection and full ROM Respiratory: Present prolonged expiratory phase, respiratory distress, rhonchi, diminished air movement and able to speak in complete sentences Cardiac: Present S1/S2, Tachycardia and radial pulses present GI: Present soft and distention; Absent tenderness or guarding Rectal (female): Present deferred (female): Present deferred Skin: Present intact; Absent cyanosis or jaundice Neuro: Present alert, awake and oriented x 3 Extremities: Present normal inspection; Absent clubbing or cyanosis Psychiatric: Present normal affect and cooperative Assessment and Plan *Assessment and plan (1) Respiratory failure with hypoxia and hypercapnia: Status: Acute Category: Medical Code(s): J96.91 - Respiratory failure, unspecified with hypoxia; J96.92 - Respiratory failure, unspecified with hypercapnia (2) Pneumonia: Status: Acute Category: Medical Code(s): J18.9 - Pneumonia, unspecified organism (3) Obesity hypoventilation syndrome: Status: Acute Category: Medical Code(s): E66.2 - Morbid (severe) obesity with alveolar hypoventilation Plan Ms. Diaz is a 63-year-old female with reported history of COPD, CKD stage IV, morbid obesity, heart failure presented to the ER with worsening respiratory distress patient admitted noncompliance her inhaler therapy was admitted for further evaluation and management. Patient also complained of chest pain upon admission, cardiology consulted. Leukopenia upon admission improving. Afebrile. Hemodynamically stable. VBG upon admission showed severe hypercarbic respiratory failure with a pH of 7.17 and pCO2 of 78.8. Patient has a recent hospital admission for hypercarbic respiratory failure in June 2023. CTA upon admission no obvious evidence of pulmonary embolism no dense consolidations or airspace disease noted. Upper lobe prominent interstitial/fibrotic changes noted likely appear chronic. Patient on admission was initiated on ceftriaxone and azithromycin for community-acquired pneumonia along with nebulization therapies. She is also receiving diuretics for possible congestive heart failure exacerbation. Interval update: Patient continued to be needing significant duration of noninvasive ventilator therapy to manage her hypercarbic respiratory failure. Multiple venous blood gases over the weekend continue to show hypercarbic respiratory failure. Noninvasive ventilator settings were changed. Currently on BiPAP therapy at 04/07 FiO2 of 50% and rate of 24. VBG off BiPAP from this morning improved from prior, continue to show hypercarbic respiratory failure with a pH of 7.30 with a pCO2 of 63.1. Plan: Continue BiPAP therapy at current settings while asleep and at night. Given patient's morbid obesity and concern for recurrent hypercarbic respiratory failure she will need noninvasive ventilator therapy upon discharge. Trelegy inhaler along with DuoNebs every 6 hours on as-needed basis Continuous ceftriaxone and azithromycin pending community-acquired pneumonia, antibiotics can be weaned to cefdinir upon discharge Wean steroids to prednisone 40 mg daily for 3 more days # Thank you for involving pulmonary in this patient care. Will continue to follow.
--- NOTE | 2023-08-12 09:39 | SW/DCPLANNER ---
Addendum entered by [facility] 08/13/23 12:51: I have also updated patient's . Addendum entered by [facility] 08/13/23 12:47: This patient has been approved SNF level of care. I have updated MD. Addendum entered by [facility] 08/13/23 11:09: Per Seth precert is still pending at this time. Addendum entered by [facility] 08/12/23 13:14: Seth w/ [facility] is able to accept this patient and started precert today. Original Note: I spoke w/ this patient and her regarding plans once medically stable for discharge. PT/OT recommended SNF level of care at time of discharge. Patient's preferred that patient return home w/ home health services rather than SNF. After a lengthy discussion w/ patient's he and patient are agreeable for information to be faxed to [facility], [facility], [facility] and [facility]. I will continue to follow up w/ fransisca, and patient/family. Discharge date is unknown at this time.
--- NOTE | 2023-08-12 09:48 | PC.NURSE ---
spoke with patient's via phone. He stated when the pt is ready for discharge he would like for her to come home with home health instead of going to a [place] [facility] for [facility]. also requesting for md to call him sometime today with an update. will notify dr ewing.
--- NOTE | 2023-08-12 09:50 | HMH.OTEV ---
OT Inpatient Evaluation Rehab OT IP Evaluation Start: 08/12/23 08:58 Freq: ONCE Status: Active Protocol: Document 08/12/23 09:40 [facility] (Rec: 08/12/23 09:49 [facility] [id number]) Rehab OT IP Assessment Subjective History Pt oriented x 2 on arrival. Pt admitted on 08/09/23 due to SOB, respiratory acidosis, and copd. History and physical: This is a 63-year-old female with PMHx of morbid obesity, lymphedema, heart failure who states she takes inhalers but has not taken them since yesterday presents to the ER with concerns of chest pain and shortness of breath. At the time of this evaluation patient on AMS, on continuous BIPAP. unable to contribute any history Per ED: Patient reportedly wears 2 L nasal cannula at home at baseline. She lives at home with her who cares for her. Patient states she started having chest pain earlier today. Patient has also been having a dry cough. She reports subjective fevers . EMS was called this evening and found her at 74% on room air. Patient was placed on nonrebreather, they were unable to obtain IV access so patient did not receive any medications in route. Patient 's oxygenation improved to 100 % on nonrebreather. Patient states she does take a water pill. Admitted for further work up and treatment Subjective I live with my . Prior to being in the hospital , pt lived at home with her . Pt claims normally she requires assistance with all ADLs. Pt is able to transfer herself to and from wheelchair with assistance from her . Pt uses a rolling walker. Pt is dependent upon for completion of all IADLs. Pt is on oxygen at home. Objective Patient Orientation Person,Birthday Right Upper Extremity Gross ROM Min Limitation <25% Left Upper Extremity Gross ROM Min Limitation <25% Shoulder ROM Limitations Muscle Weakness Elbow ROM Limitations Muscle Weakness Wrist Limitations of Range of Motion Muscle Weakness Bed Mobility bed mobility-scooting,bed mobility - supine/sit Assist Level Moderate x 2 (50% assist) Rehab OT IP prob,goals,plan Problems Date of Evaluation: 08/12/23 OT IP Problems Bed Mobility,Transfers,Balance ,Self care,Safety Rehab Potential Rehab Potential Good Equipment Needs Assistive Devices Rolling / Wheeled Walker Plan OT intervention Plan Bed Mobility,Transfers,Balance ,Self care,Safety,Therapeutic Exercise OT Plan Frequency Daily Duration LOS Discharge Goals Bed Mobility Ability Assistance x2 Sit to Stand Chair Transfer Ability Moderate x 2 (50% assist) Chair Transfer Ability Moderate x 2 (50% assist) Chair Transfer Technique Sit to/from Ambulatory Chair Transfer Assistive Devices Rolling Walker Feeding Ability Assist with Tray Set Up Lower Body Dressing Ability Moderate Assistance Upper Body Dressing Ability Minimal Assistance Bathing Ability Moderate Assistance,Maximum Assistance Performing Toilet Hygiene Ability Moderate Assistance Overall Commode/Toilet Transfer Ability Moderate Assistance Commode/Toilet Transfer Technique Sit to/from Ambulatory Commode/Toilet Transfer Assistive Grab Bars Devices Oral Care Assist Contact Guard Decrease in Endurance Yes Discharge Plan OT Discharge Plan Pt will continue to be seen for OT services while at [facility]. Pt would benefit most from short term rehab at [facility] following discharge. Continued skilled therapy is important in order for patient to improve strength, safety, endurance, ALD indepenence, and functional transfers to reach PLOF. Eval Complexity Eval Charge Codes 37873 - Moderate Complexity PHYSICIAN CERTIFICATION: I certify the specified therapy services for Destiny Diaz are required, authorized, and reviewed every 30 days.
[2023-08-12 10:18] LABS: Lactate Venous 1.1 mmol/L (0.4-2.0); VBG Base Excess 4.7 mmol/L (-2.4-2.3); VBG Oxygen Saturation 88.5 % (50-70); VBG PH 7.31 mmol/L (7.31-7.41); VBG PO2 57.9 mmol/L (28-40); VBG Total CO2 32.9 mmol/L (23-27)
[2023-08-12 10:21] LABS: VBG PCO2 63.1 mmol/L (35-51)
--- NOTE | 2023-08-12 12:04 | HMH.PTEV ---
Physical Therapy Evaluation Rehab PT IP Evaluation Start: 08/09/23 11:24 Freq: ONCE Status: Active Protocol: Document 08/12/23 11:53 [facility] (Rec: 08/12/23 12:04 [facility] [email or web address]) Subjective/History History History Per H&P: Patient reportedly wears 2 L nasal cannula at home at baseline. She lives at home with her who cares for her. Patient states she started having chest pain earlier today. Patient has also been having a dry cough. She reports subjective fevers . EMS was called this evening and found her at 74% on room air. Patient was placed on nonrebreather, they were unable to obtain IV access so patient did not receive any medications in route. Patient 's oxygenation improved to 100 % on nonrebreather. Patient states she does take a water pill. Admitted for further work up and treatment. Subjective Subjective PLOF per pt report: Lived at home with her . Used a RW and w/c for mobility. Required to assist with transfers, dressing, bathing, and bed mobility. Dependent upon for IADLs. Pt reports her is home most of the time to assist her as needed. Pt is on oxygen at home. Pt is questionable historian. New diagnosis of cancer in past 12 No months? Rehab PT IP Eval Objective Appearance Patient Behavior Appropriate,Cooperative Patient Orientation Person Difficulty following instructions none Speech Pattern Clear Ambulation Patient Able to Ambulate No Balance Ability to Arise Unable Sitting Balance Leans or slides in chair Transfers Bed Transfer Ability Maximum x 2 (75% assist) Rehab PT IP prob,goals,plan Problems Date of Evaluation: 08/12/23 PT IP Problems Bed Mobility,Transfers,Gait, Balance,Self care,Safety Rehab Potential Rehab Potential Fair Equipment Needs Assistive Devices Wheelchair Plan PT Intervention Plan Bed Mobility,Transfers,Balance ,Safety,Therapeutic Exercise Other Intervention Plan 1-2 times PT Plan Frequency Daily Duration LOS Discharge Goals Bed Transfer Ability Moderate x 2 (50% assist) Sit to Stand Chair Transfer Ability Maximum x 2 (75% assist) Discharge Plan PT Discharge Plan Initial physical therapy evaluation performed. Patient presents below baseline at this time in functional mobility, transfers, and strength. Pt not safe to return home at this time d/t current level of functional mobility. PT recommending short-term rehabilitation stay upon d/c from [facility]. Pt would benefit from skilled PT while at [facility] to prevent further functional decline and maximize safety with mobility. Eval Complexity Eval Charge Codes 94965 - High Complexity PHYSICIAN CERTIFICATION: I certify the specified therapy services for Destiny Joe are required, authorized, and reviewed every 30 days.
--- NOTE | 2023-08-12 14:16 | PC.NURSE ---
called Dr Colin regarding bed status and diet. he stated pt could come out of stepdown and be a med surg pt and could go from npo to cardiac diet. orderes repeated and verified. orders placed under him. pt aware.
--- NOTE | 2023-08-12 17:10 | EXP.PN ---
Subjective *Date: 08/12/23 *Time: 17:10 Interval history: seen at bedside, benoit DEVINE, SOB, N/V, she is lying in bed comfortably, holding conversations Exam Data for Last 24 hours Vital signs and Labs for Last 24 Hours: Temp Pulse Resp BP Pulse Ox O2 Del Method O2 Flow Rate 97.8 F 76 18 119/54 L 93 L Nasal Cannula 2 08/12/23 16:00 08/12/23 16:00 08/12/23 16:00 08/12/23 16:00 08/12/23 16:00 08/12/23 16:00 08/12/23 16:00 FiO2 40 08/12/23 04:00 Laboratory Results - last 24 hr 08/12/23 05:30: Sodium 140, Potassium 4.3, Chloride 104, Carbon Dioxide 36 H, Anion Gap 4.3 L, BUN 51 H, Creatinine 1.80 H, Estimated Creat Clear 21, Estimated GFR 28 L, Est GFR ( Amer) 34 L, Glucose 83, Calcium 8.7, Total Bilirubin 0.5, AST 30, ALT 17, Alkaline Phosphatase 106, Total Protein 5.8 L, Albumin 2.9 L, Globulin 2.9, Albumin/Globulin Ratio 1.0 L 08/12/23 10:12: VBG pH 7.31, VBG pCO2 63.1 H, VBG pO2 57.9 H, VBG HCO3 31.0 H, VBG Total CO2 32.9 H, VBG O2 Saturation 88.5 H, VBG Base Excess 4.7 H, VBG Lactic Acid 1.1 I & O for Last 24 hours: Intake & Output 08/09/23 08/10/23 08/11/23 08/12/23 23:59 23:59 23:59 23:59 Intake Total 350 / 700 838 / 1238 400 / 400 Output Total 1250 / 1250 1500 / 1900 1300 / 1300 1850 / 1850 Balance -1250 / -900 -1150 / -1200 -462 / -62 -1450 / -1450 Weight 145 kg 149.4 kg 149.8 kg 148 kg Constitutional Constitutional: no acute distress *Routine HEENT Exam Head: Present normocephalic Eye: Present EOMI and PERRL ENT: Present mucous membranes moist *Routine Neck Exam Neck: Present supple; Absent lymphadenopathy *Routine Respiratory Exam Respiratory: Present wheezes and distant breath sounds *Routine Cardiovascular Exam Cardiovascular: Present RRR *Routine Abdominal Exam Abdominal: Present soft and normoactive bowel sounds; Absent tenderness *Routine Extremities Exam Extremities: Absent cyanosis, clubbing or edema *Routine Skin Exam Skin: Present warm; Absent rash *Routine Neurological Exam Neurological: Present alert and oriented X3 Assessment and Plan *Assessment and plan (1) Respiratory failure with hypoxia and hypercapnia: Status: Acute Category: Medical Code(s): J96.91 - Respiratory failure, unspecified with hypoxia; J96.92 - Respiratory failure, unspecified with hypercapnia (2) Pneumonia: Status: Acute Category: Medical Code(s): J18.9 - Pneumonia, unspecified organism (3) Morbid obesity: Status: Acute Category: Medical Code(s): E66.01 - Morbid (severe) obesity due to excess calories (4) SHAYLA (acute kidney injury): Status: Acute Category: Medical Code(s): N17.9 - Acute kidney failure, unspecified (5) Congestive cardiac failure: Status: Acute Qualifiers: Heart failure type: unspecified Heart failure chronicity: unspecified Qualified Code(s): I50.9 - Heart failure, unspecified Category: Medical Code(s): I50.9 - Heart failure, unspecified (6) Chronic kidney disease: Status: Acute Qualifiers: Chronic kidney disease stage: stage 4 (severe) Qualified Code(s): N18.4 - Chronic kidney disease, stage 4 (severe) Category: Medical Code(s): N18.9 - Chronic kidney disease, unspecified (7) Major depression: Status: Chronic Qualifiers: Major depression recurrence: recurrent Active/Remission status: currently active Major depression episode severity: severe Psychotic features: with psychotic features Qualified Code(s): F33.3 - Major depressive disorder, recurrent, severe with psychotic symptoms Category: Medical Code(s): F32.9 - Major depressive disorder, single episode, unspecified (8) Seizure disorder: Status: Acute Category: Medical Code(s): G40.909 - Epilepsy, unspecified, not intractable, without status epilepticus Plan 63-year-old female with PMHx of morbid obesity, lymphedema, heart failure who states she takes inhalers but has not taken them since yesterday presents to the ER with concerns of chest pain and shortness of breath. Presented to the ER via EMS altered and respiratory distress. Placed on BiPAP. Medicine consulted for admission. Patient necessitating inpatient management. Medicine agreed to admit. Treated respiratory failure with BiPAP overnight. Pulmonology consulted. Gas stable this morning. pH 7.3. Taking a break from BiPAP. Repeat VBG and will reevaluate needs for BiPAP continuous versus just when sleeping. Continues to require inpatient management. Problems addressed as follows: -Respiratory failure with hypercapnia: respiratory acidosis suspected COPD exacerbation versus pneumonia can not rule out Congestive cardiac failure: Pulmonology consulted, recommend continuing BiPAP, wean as tolerated, setting adjustments pending gas after break this morning from BiPAP. Continue supplemental oxygen for sats greater than 90%. -Continue broad-spectrum antibiotics with ceftriaxone and azithromycin daily -Continue DuoNebs every 4 hour along with Pulmicort every 12 hours. -Continue methylprednisolone 60 mg IV daily SHAYLA: Cr is improving, monitor This is around her baseline. Caution with nephrotoxins. Renally dose medications. Mood disorder: Continue Abilify 5 mg daily, BuSpar 20 mg daily Seizure disorder: Continue Keppra 500 Tran twice daily Hypertension: Continue propranolol 20 mg nightly, verapamil 120 mg nightly Morbidly obese: Complicates all aspects of her care Heparin SQ twice daily wean BIPAP as tolerated, patient may need placement per PT/OT, however family is not decided about rehab placement social services manager following DC 1-2 days
[2023-08-12] MEDS: PROPRANOLOL 20MG TAB 20 MG PO (17:26)
--- NOTE | 2023-08-12 18:08 | PC.NURSE ---
A&OX4. PT HAS TOLERATED OXYGEN WELL TODAY. CURRENTLY ON 2L NC AT 97%. RESPIRATIONS REGULAR AND UNLABORED. LUNG SOUNDS DIMINISHED THROUGHOUT. HAND FIELD SUPPORT SPECIALIST EQUAL. +1 PULSES NOTED THROUGHOUT. ACTIVE BOWEL SOUNDS HEARD IN ALL 4 QUADRANTS. SOFT AND NONTENDER. NO BM THUS FAR. ROMERO CATH IN PLACE WITH CLEAR YELLOW URINE NOTED. NO KINKS NOTED. HAND FIELD SUPPORT SPECIALIST EQUAL. +1 PITTING EDEMA NOTED TO LLE AND NONPITTING EDEMA NOTED TO RLE. DENIES ANY SOB OR CP AT THIS TIME. PT TURNED Q2 HOURS TO PREVENT SKIN BREAKDOWN. MEDS ADMINISTERED PER JUN. SPOKE WITH PATIENT'S EARLIER ON THE PHONE AND UPDATED HIM ON CARE PER PT REQUEST. NOTIFIED DR [facility] WANTED HIM TO CALL THEM. VERBALIZED UNDERSTANDING. PT AWARE OF NEED FOR SPUTUM SAMPLE. UNABLE TO PRODUCE ONE THUS FAR. BED ALARM ON TO PROMOTE SAFETY. BED IN LOWEST POSITION. CALL LIGHT WITHIN REACH. NO QUESTIONS OR CONCERNS VOICED AT THIS TIME.
[2023-08-12] MEDS: SODIUM CHLORIDE 0.9% 10ML VIAL 10 ML IV (20:07)
[2023-08-12] MEDS: PANTOPRAZOLE 40MG VIAL 40 MG IV (20:07)
[2023-08-12] MEDS: ROPINIROLE 1MG TABLET 1 MG PO (20:07)
[2023-08-12] MEDS: CEFTRIAXONE 1 GM 1 GM in 0.9 % SODIUM CHLORIDE 50 ML IV (20:07)
[2023-08-12] MEDS: VERAPAMIL SR 120MG TABLET 120 MG PO (20:07)
[2023-08-12] MEDS: AZITHROMYCIN 500 MG in 0.9 % SODIUM CHLORIDE 250 ML 250 MG IV (21:25)
[2023-08-13] VITALS (7 sets, daily range): BP systolic 102–130; BP diastolic 47–61; PULSE 62–80; RESP 17–33; TEMP 36.7–37.2; O2SAT 92–100; BMI 64.3
[2023-08-13] MEDS: MORPHINE 4MG/ML SYRINGE 4 MG IV (04:11)
--- NOTE | 2023-08-13 05:25 | PC.NURSE ---
Patient has had a good shift. Patient did get a bath this shift and her hair was washed and braided. Patient remains with a dia for I&O. Patient tolerated the Bipap well through the night. Patient did complain of pain and was medicated per mar. No other issues
[2023-08-13 05:51] LABS: Basophils % 0.1 % (0.1-2.0); Eosinophils % 0.8 % (0.1-12.0); Hematocrit 36.6 % (37.0-47.0); Hemoglobin 11.2 g/dL (12.2-16.2); Lymphocytes # 0.7 K/mm3 (0.7-4.5); Lymphocytes % 17.4 % (10-50); Mean Corpuscular HGB Conc 30.6 g/dL (31.8-35.4); Mean Corpuscular Hemoglobin 30.4 pg (27.0-31.2); Mean Corpuscular Volume 99.3 fl (81-99); Mean Platelet Volume 8.5 fl (7.4-10.4); Monocytes # 0.5 K/mm3 (0.1-1.0); Monocytes % 11.5 % (1.7-9.3); Neutrophils # 2.9 K/mm3 (1.8-7.8); Neutrophils % 70.2 % (37.0-80.0); Platelet Count 119 K/mm3 (142-424); Red Blood Count 3.68 M/mm3 (4.20-5.40); Red Cell Distribution Width 14.4 % (11.5-17.5); White Blood Count 4.2 K/mm3 (4.8-10.8)
[2023-08-13 06:01] LABS: Chloride 102 mmol/L (98-107); Potassium 4.1 mmoL/L (3.5-5.1); Sodium 140 mmol/L (136-145)
[2023-08-13 06:04] LABS: Anion Gap 4.1 mEq/L (5-15); Blood Urea Nitrogen 53 mg/dl (7-17); Carbon Dioxide 38 mmol/L (22.0-30.0); Creatinine Clearance Estimated 24 mL/min (50-200); Estimated Glomerular Filt Rate 32 ml/min (>60); GFR (African American) 39 ML/MIN (>60)
[2023-08-13 06:05] LABS: Calcium 8.5 mg/dl (8.4-10.2); Glucose 94 mg/dl (74-100)
[2023-08-13] MEDS: FLUTICASONE/UMECLIDIN/VILANTER 100/62.5/25MCG INHALER 1 PUFF IH (06:21)
[2023-08-13] MEDS: VENLAFAXINE XR 75MG CAPSULE 75 MG PO (08:32)
[2023-08-13] MEDS: predniSONE 20MG TAB 40 MG PO (08:32)
[2023-08-13] MEDS: BUMETANIDE 1MG/4ML VIAL 1 MG IV (08:33)
[2023-08-13] MEDS: BUSPIRONE HCL 10 MG TABLET 20 MG PO (08:33)
[2023-08-13] MEDS: MAGNESIUM OXIDE 400MG TABLET 400 MG PO (08:33)
[2023-08-13] MEDS: ARIPiprazole 10MG TABLET 5 MG PO (08:33)
[2023-08-13] MEDS: NYSTATIN TOPICAL POWDER 30GM TP ×2 (08:33→13:34)
[2023-08-13] MEDS: HEPARIN SODIUM 5,000 UNIT/ML VIAL 5000 UNIT SQ (08:33)
[2023-08-13] MEDS: levETIRAcetam 500 MG TABLET PO (08:33)
--- NOTE | 2023-08-13 09:58 | EXP.PULM.PN ---
Subjective *Date: 08/13/23 *Time: 11:52 Interval history: No acute respiratory events overnight. Patient denies any new respiratory complaints. Pulmonology Exam Inpatient Vital signs and Labs for Last 24 Hours: Temp Pulse Resp BP Pulse Ox O2 Del Method O2 Flow Rate 98.3 F 77 17 102/49 L 98 Nasal Cannula 2 08/13/23 08:00 08/13/23 08:00 08/13/23 08:00 08/13/23 08:00 08/13/23 08:00 08/13/23 08:00 08/13/23 08:00 FiO2 40 08/13/23 01:58 Laboratory Results - last 24 hr 08/12/23 10:12: VBG pH 7.31, VBG pCO2 63.1 H, VBG pO2 57.9 H, VBG HCO3 31.0 H, VBG Total CO2 32.9 H, VBG O2 Saturation 88.5 H, VBG Base Excess 4.7 H, VBG Lactic Acid 1.1 08/13/23 05:19: WBC 4.2 L D, RBC 3.68 L, Hgb 11.2 L, Hct 36.6 L, MCV 99.3 H, MCH 30.4, MCHC 30.6 L, RDW 14.4, Plt Count 119 L, MPV 8.5, Neut % (Auto) 70.2, Lymph % (Auto) 17.4, [place] % (Auto) 11.5 H, Eos % (Auto) 0.8, Baso % (Auto) 0.1, Neut # (Auto) 2.9, Lymph # (Auto) 0.7, [place] # (Auto) 0.5, Eos # (Auto) 0.0, Baso # (Auto) 0.0, Sodium 140, Potassium 4.1, Chloride 102, Carbon Dioxide 38 H, Anion Gap 4.1 L, BUN 53 H, Creatinine 1.60 H, Estimated Creat Clear 24, Estimated GFR 32 L, Est GFR ( Amer) 39 L, Glucose 94, Calcium 8.5 Temp Pulse Resp BP Pulse Ox O2 Del Method O2 Flow Rate 98.0 F 90 14 123/56 L 94 L BiPAP 10 08/09/23 05:28 08/09/23 06:00 08/09/23 06:00 08/09/23 06:00 08/09/23 06:00 08/09/23 06:45 08/08/23 23:45 FiO2 35 08/09/23 05:15 Laboratory Results - last 24 hr 08/08/23 23:46: VBG pH 7.24 L, VBG pCO2 72.9 H, VBG pO2 196.2 H, VBG HCO3 30.5 H, VBG Total CO2 32.8 H, VBG O2 Saturation 99.1 H, VBG Base Excess 3.1 H, VBG Lactic Acid 0.9 08/09/23 00:01: Sodium 142, Potassium 5.3 H, Chloride 104, Carbon Dioxide 36 H, Anion Gap 7.3, BUN 40 H, Creatinine 2.30 H, Estimated Creat Clear 18, Estimated GFR 21 L, Est GFR ( Amer) 26 L, Glucose 108 H, Calcium 8.8, Total Bilirubin 0.4, AST 32, ALT 15, Alkaline Phosphatase 139 H, Troponin I < 0.01, NT-Pro-B Natriuret Pep 7950 H, Total Protein 6.9, Albumin 3.7, Globulin 3.2, Albumin/Globulin Ratio 1.2 08/09/23 01:07: WBC 4.7 L, RBC 4.19 L, Hgb 12.8, Hct 43.3, MCV 103.4 H, MCH 30.7, MCHC 29.6 L, RDW 14.5, Plt Count 137 L, MPV 8.4, Neut % (Auto) 69.2, Lymph % (Auto) 23.1, [place] % (Auto) 6.6, Eos % (Auto) 0.4, Baso % (Auto) 0.7, Neut # (Auto) 3.3, Lymph # (Auto) 1.1, [place] # (Auto) 0.3, Eos # (Auto) 0.0, Baso # (Auto) 0.0, Lactate 0.8 08/09/23 02:24: Urine Color Yellow, Urine Appearance Clear, Urine pH 5.5, Ur Specific [place] 1.025, Urine Protein Negative, Urine Glucose (UA) Negative, Urine Ketones Negative, Urine Blood Negative, Urine Nitrate Negative, Urine Bilirubin Negative, Urine Urobilinogen 0.2, Ur Leukocyte Esterase Negative, Urine RBC None, Urine WBC Occasional, Ur Squamous Epith Cells 3-5, Urine Bacteria Trace 08/09/23 02:48: VBG pH 7.17 L, VBG pCO2 78.8 H, VBG pO2 109.7 H, VBG HCO3 28.0, VBG Total CO2 30.4 H, VBG O2 Saturation 97.8 H, VBG Base Excess -0.6, VBG Lactic Acid 1.0 08/09/23 03:09: Troponin I < 0.01 08/09/23 03:53: VBG pH 7.19 L, VBG pCO2 66.1 H, VBG pO2 50.8 H, VBG HCO3 24.7, VBG Total CO2 26.8, VBG O2 Saturation 86.2 H, VBG Base Excess -3.4 L, VBG Lactic Acid 1.5 08/09/23 : WBC 6.4 D, RBC 3.96 L, Hgb 12.2, Hct 40.8, MCV 102.9 H, MCH 30.7, MCHC 29.8 L, RDW 14.6, Plt Count 137 L, MPV 10.3, Neut % (Auto) 92.8 H, Lymph % (Auto) 5.5 L, [place] % (Auto) 1.5 L, Eos % (Auto) 0.1, Baso % (Auto) 0.0 L, Neut # (Auto) 6.0, Lymph # (Auto) 0.4 L, [place] # (Auto) 0.1, Eos # (Auto) 0.0, Baso # (Auto) 0.0, Total Counted 100, Neutrophils % (Manual) 91 H, Lymphocytes % (Manual) 6 L, Monocytes % (Manual) 3, Platelet Estimate Slight decrease, Hypochromasia 1+, Macrocytosis 1+, Sodium 142, Potassium 4.8, Chloride 105, Carbon Dioxide 35 H, Anion Gap 6.8, BUN 38 H, Creatinine 2.40 H, Estimated Creat Clear 17, Estimated GFR 20 L, Est GFR ( Amer) 25 L, Glucose 155 H D, Calcium 8.7, Magnesium 1.9, Total Bilirubin 0.3, AST 27, ALT 18, Alkaline Phosphatase 144 H, Troponin I 0.01, Total Protein 6.4, Albumin 3.3 L D, Globulin 3.1, Albumin/Globulin Ratio 1.1 I & O for Labs for Last 24 Hours: Intake & Output 08/10/23 08/11/23 08/12/23 08/13/23 23:59 23:59 23:59 23:59 Intake Total 350 / 700 838 / 1238 760 / 1110 710 / 710 Output Total 1500 / 1900 1300 / 1300 1850 / 1850 400 / 400 Balance -1150 / -1200 -462 / -62 -1090 / -740 310 / 310 Weight 329 lb 5.93 oz 330 lb 4.039 oz 326 lb 4.546 oz 327 lb 6.183 oz Intake & Output 08/06/23 08/07/23 08/08/23 08/09/23 23:59 23:59 23:59 23:59 Output Total 150 / 150 Balance -150 / -150 Weight 320 lb Constitutional: Present moderate distress Head: Present normocephalic and atraumatic ENT: Present normal exam, normal oropharynx and mucous membranes moist Neck: Present normal inspection and full ROM Respiratory: Present diminished air movement and able to speak in complete sentences; Absent prolonged expiratory phase, respiratory distress or wheezes Cardiac: Present S1/S2, Tachycardia and radial pulses present GI: Present soft and distention; Absent tenderness or guarding Rectal (female): Present deferred (female): Present deferred Skin: Present intact; Absent cyanosis or jaundice Neuro: Present alert, awake and oriented x 3 Extremities: Present normal inspection; Absent clubbing or cyanosis Psychiatric: Present normal affect and cooperative Assessment and Plan *Assessment and plan (1) Respiratory failure with hypoxia and hypercapnia: Status: Acute Category: Medical Code(s): J96.91 - Respiratory failure, unspecified with hypoxia; J96.92 - Respiratory failure, unspecified with hypercapnia (2) Pneumonia: Status: Acute Category: Medical Code(s): J18.9 - Pneumonia, unspecified organism (3) Obesity hypoventilation syndrome: Status: Acute Category: Medical Code(s): E66.2 - Morbid (severe) obesity with alveolar hypoventilation Plan Ms. Diaz is a 63-year-old female with reported history of COPD, CKD stage IV, morbid obesity, heart failure presented to the ER with worsening respiratory distress patient admitted noncompliance her inhaler therapy was admitted for further evaluation and management. Patient also complained of chest pain upon admission, cardiology consulted. Leukopenia upon admission improving. Afebrile. Hemodynamically stable. VBG upon admission showed severe hypercarbic respiratory failure with a pH of 7.17 and pCO2 of 78.8. Patient has a recent hospital admission for hypercarbic respiratory failure in June 2023. CTA upon admission no obvious evidence of pulmonary embolism no dense consolidations or airspace disease noted. Upper lobe prominent interstitial/fibrotic changes noted likely appear chronic. Patient on admission was initiated on ceftriaxone and azithromycin for community-acquired pneumonia along with nebulization therapies. She is also receiving diuretics for possible congestive heart failure exacerbation. Interval update: No acute respiratory events overnight. Currently on BiPAP therapy at night for possible sleep apnea and obesity hypoventilation syndrome. Tolerating nasal cannula well during the daytime. Awaiting placement. Continue BiPAP therapy at at night and while asleep 12/24 FiO2 of 50% and rate of 24. Plan: Follow with daytime ABG Continue BiPAP therapy at current settings while asleep and at night. Given patient's morbid obesity and concern for recurrent hypercarbic respiratory failure she will need noninvasive ventilator therapy upon discharge. Trelegy inhaler along with DuoNebs every 6 hours on as-needed basis Continuous ceftriaxone and azithromycin pending community-acquired pneumonia, antibiotics can be weaned to cefdinir upon discharge Wean steroids to prednisone 40 mg daily for 3 more days # Thank you for involving pulmonary in this patient care. Will continue to follow.
--- NOTE | 2023-08-13 10:52 | PC.NURSE ---
IJ D/C at this time per Marly. Was coming out of place. Two new IVs placed per ultrasound. Patient tolerated well.
[2023-08-13 11:29] LABS: ABG HCO3 33.2 mmhg (22.0-26.0); ABG Oxygen Saturation 88 % (90-100); ABG PH 7.32 mmol/L (7.35-7.45); ABG PO2 54.7 mmhg (80-100); ABG TCO2 35.2 mmhg (23-27)
[2023-08-13 11:32] LABS: Allen's Test ACCEPTABLE; Oxygen 1 LPM %
[2023-08-13 11:33] LABS: ABG PCO2 66.5 mmhg (35.0-45.0); Source Right Radial
--- NOTE | 2023-08-13 12:28 | P.PN_ITS ---
Subjective *Date: 08/13/23 *Time: 12:28 Interval history: No acute events overnight. Wore BiPAP overnight. Doing better this morning. Blood gas remaining controlled with use of BiPAP. Tolerating p.o. intake. Will remove central line and Pérez catheter today. Stable on 2 L nasal cannula during the day. Afebrile overnight. No nausea or vomiting. Medical Exam Vital signs and Labs for Last 24 Hours: Vital Signs Temp Pulse Pulse Resp BP Pulse Ox O2 Del Method 08/13/23 11:56 98.9 F 71 18 116/47 L 92 L Nasal Cannula 08/13/23 10:53 Nasal Cannula 08/13/23 09:00 Nasal Cannula 08/13/23 08:00 98 Nasal Cannula 08/13/23 08:00 80 08/13/23 08:00 98 Nasal Cannula 08/13/23 08:00 98.3 F 77 17 102/49 L 98 Nasal Cannula 08/13/23 06:55 Nasal Cannula 08/13/23 06:22 93 L Nasal Cannula 08/13/23 05:00 BiPAP 08/13/23 04:00 98.2 F 62 33 H 115/61 100 BiPAP 08/13/23 04:00 66 08/13/23 03:00 BiPAP 08/13/23 01:58 08/13/23 01:00 BiPAP 08/13/23 00:00 98.0 F 62 24 130/52 L 100 BiPAP 08/13/23 00:00 68 08/12/23 23:00 BiPAP 08/12/23 21:35 BiPAP 08/12/23 21:33 08/12/23 21:00 BiPAP 08/12/23 20:00 69 08/12/23 20:00 Nasal Cannula 08/12/23 20:00 97.6 F 68 14 119/54 L 100 08/12/23 18:49 Nasal Cannula 08/12/23 17:05 Nasal Cannula 08/12/23 16:00 70 08/12/23 16:00 Nasal Cannula 08/12/23 16:00 97.8 F 76 18 119/54 L 93 L Nasal Cannula 08/12/23 15:00 Nasal Cannula 08/12/23 13:59 76 14 102/42 L 93 L Nasal Cannula 08/12/23 12:58 Nasal Cannula O2 Flow Rate FiO2 08/13/23 11:56 1 04/30/24 10:53 2 08/13/23 09:00 2 08/13/23 08:00 2 08/13/23 08:00 08/13/23 08:00 2 08/13/23 08:00 2 08/13/23 06:55 2 08/13/23 06:22 2 08/13/23 05:00 08/13/23 04:00 08/13/23 04:00 08/13/23 03:00 08/13/23 01:58 40 08/13/23 01:00 08/13/23 00:00 08/13/23 00:00 08/12/23 23:00 08/12/23 21:35 08/12/23 21:33 40 08/12/23 21:00 08/12/23 20:00 08/12/23 20:00 2 08/12/23 20:00 2 08/12/23 18:49 2 08/12/23 17:05 2 08/12/23 16:00 08/12/23 16:00 2 08/12/23 16:00 3 08/12/23 15:00 2 08/12/23 13:59 2 08/12/23 12:58 3 Intake and Output 08/12/23 08/13/23 08/13/23 23:59 07:59 15:59 Intake Total 360 / 1110 350 / 710 360 / 710 Output Total 200 / 1850 400 / 600 200 / 600 Balance 160 / -740 -50 / 110 160 / 110 Intake: Intake, Oral Amount 360 / 460 360 / 360 Intake, Total IV Amount 350 / 350 Azithromycin 500 mg In 0.9 % 250 / 250 Sodium Chloride 250 ml @ 250 mls/hr IV Q24H [facility] Rx#:[id number] Ceftriaxone 1 gm 1 gm In 0.9 % 100 / 100 Sodium Chloride 50 ml @ 100 mls /hr IV Q24H [facility] Rx#:[id number] Output: Output, Urine Amount 200 / 1150 400 / 600 200 / 600 Other: Number of Unmeasured Voids 0 0 Weight 148.5 kg Patient Weight 08/13/23 23:59 Weight 148.5 kg Laboratory Results - last 24 hr 08/13/23 05:19: WBC 4.2 L D, RBC 3.68 L, Hgb 11.2 L, Hct 36.6 L, MCV 99.3 H, MCH 30.4, MCHC 30.6 L, RDW 14.4, Plt Count 119 L, MPV 8.5, Neut % (Auto) 70.2, Lymph % (Auto) 17.4, [place] % (Auto) 11.5 H, Eos % (Auto) 0.8, Baso % (Auto) 0.1, Neut # (Auto) 2.9, Lymph # (Auto) 0.7, [place] # (Auto) 0.5, Eos # (Auto) 0.0, Baso # (Auto) 0.0, Sodium 140, Potassium 4.1, Chloride 102, Carbon Dioxide 38 H, Anion Gap 4.1 L, BUN 53 H, Creatinine 1.60 H, Estimated Creat Clear 24, Estimated GFR 32 L, Est GFR ( Amer) 39 L, Glucose 94, Calcium 8.5 08/13/23 11:03: Specimen Source Right radial, O2 % 1 lpm, ABG pH 7.32 L, ABG pCO2 66.5 H, ABG pO2 54.7 L, ABG HCO3 33.2 H, ABG Total CO2 35.2 H, ABG O2 Saturation 88 L, ABG Base Excess 7.0 H, Allan Test Acceptable I & O for Labs for Last 24 Hours: Intake & Output 08/10/23 08/11/23 08/12/23 08/13/23 23:59 23:59 23:59 23:59 Intake Total 350 / 700 838 / 1238 760 / 1110 710 / 710 Output Total 1500 / 1900 1300 / 1300 1850 / 1850 600 / 600 Balance -1150 / -1200 -462 / -62 -1090 / -740 110 / 110 Weight 149.4 kg 149.8 kg 148 kg 148.5 kg Constitutional: Present no acute distress, morbidly obese, chronically ill appearing and cooperative Head: Present atraumatic and normocephalic ENT: Present normal exam Neck: Present normal inspection Comment:: Central line and left IJ Respiratory: Present accessory muscle use, prolonged expiratory phase and crackles (bases); Absent rhonchi or wheezes Comment:: BiPAP in place Cardiac: Present Reg Rate and Rhythm GI: Present soft and normal bowel sounds; Absent distention or tenderness Comment:: Pérez in place Extremities: Present normal inspection, full ROM and edema (2+ in BLE to thighs) Skin: Present intact; Absent erythema Comment:: dry, scale on BLE Neuro: Present Grossly Intact, alert, awake and moves all extremities Comment:: Oriented to self and place Assessment and Plan *Assessment and plan (1) Respiratory failure with hypoxia and hypercapnia: Status: Acute Category: Medical Code(s): J96.91 - Respiratory failure, unspecified with hypoxia; J96.92 - Respiratory failure, unspecified with hypercapnia (2) Pneumonia: Status: Acute Category: Medical Code(s): J18.9 - Pneumonia, unspecified organism (3) Morbid obesity: Status: Acute Category: Medical Code(s): E66.01 - Morbid (severe) obesity due to excess calories (4) SHAYLA (acute kidney injury): Status: Acute Category: Medical Code(s): N17.9 - Acute kidney failure, unspecified (5) Congestive cardiac failure: Status: Acute Qualifiers: Heart failure type: unspecified Heart failure chronicity: unspecified Qualified Code(s): I50.9 - Heart failure, unspecified Category: Medical Code(s): I50.9 - Heart failure, unspecified (6) Chronic kidney disease: Status: Acute Qualifiers: Chronic kidney disease stage: stage 4 (severe) Qualified Code(s): N18.4 - Chronic kidney disease, stage 4 (severe) Category: Medical Code(s): N18.9 - Chronic kidney disease, unspecified (7) Major depression: Status: Chronic Qualifiers: Major depression recurrence: recurrent Active/Remission status: currently active Major depression episode severity: severe Psychotic features: with psychotic features Qualified Code(s): F33.3 - Major depressive disorder, recurrent, severe with psychotic symptoms Category: Medical Code(s): F32.9 - Major depressive disorder, single episode, unspecified (8) Seizure disorder: Status: Acute Category: Medical Code(s): G40.909 - Epilepsy, unspecified, not intractable, without status epilepticus Plan 63-year-old female with PMHx of morbid obesity, lymphedema, heart failure who states she takes inhalers but has not taken them since yesterday presents to the ER with concerns of chest pain and shortness of breath. Presented to the ER via EMS altered and respiratory distress. Placed on BiPAP. Medicine consulted for admission. Patient necessitating inpatient management. Medicine agreed to admit. Treated respiratory failure with BiPAP overnight. Pulmonology consulted. Gas stable this morning. Showing improvement. Stable for discharge to placement when accepted and approved by insurance. Problems addressed as follows: -Respiratory failure with hypercapnia: respiratory acidosis suspected COPD exacerbation versus pneumonia can not rule out Congestive cardiac failure: Pulmonology consulted, discussed dates this morning. Continue BiPAP therapy at night on current settings. Will need to discharge on BiPAP to rehab. Continue Trelegy inhaler daily along with DuoNebs every 6 hours as needed. Complete 5 days of antibiotics while admitted. If discharged before completing antibiotics, transition to cefdinir. Steroids wean to prednisone 40 mg daily for 3 more days - White cell count 4.2. Hemoglobin 11.2. Repeat CBC, CMP, magnesium ordered for the morning -Bumex 1 mg IV daily. Monitor for output. -Repeat CBC, BMP ordered for the morning. SHAYLA: BUN 53, creatinine 1.6. At her baseline. Caution with nephrotoxins. Renally dose medications. Mood disorder: Continue Abilify 5 mg daily, BuSpar 20 mg daily Seizure disorder: Continue Keppra 500 Tran twice daily Hypertension: Continue propranolol 20 mg nightly, verapamil 120 mg nightly Morbidly obese: Complicates all aspects of her care Heparin SQ twice daily Full code Protonix Regular diet
--- NOTE | 2023-08-13 13:15 | EXP.DC.SUM ---
General Admission date:: 08/09/23 Discharge date: 08/13/23 HPI HPI HPI: This is a 63-year-old female with PMHx of morbid obesity, lymphedema, heart failure who states she takes inhalers but has not taken them since yesterday presents to the ER with concerns of chest pain and shortness of breath. At the time of this evaluation patient on AMS, on continuous BIPAP. unable to contribute any history Per ED: Patient reportedly wears 2 L nasal cannula at home at baseline. She lives at home with her who cares for her. Patient states she started having chest pain earlier today. Patient has also been having a dry cough. She reports subjective fevers. EMS was called this evening and found her at 74% on room air. Patient was placed on nonrebreather, they were unable to obtain IV access so patient did not receive any medications in route. Patient's oxygenation improved to 100% on nonrebreather. Patient states she does take a water pill. Admitted for further work up and treatment. Hospital Course Hospital Course Hospital Course: 63-year-old female with PMHx of morbid obesity, lymphedema, heart failure who states she takes inhalers but has not taken them since yesterday presents to the ER with concerns of chest pain and shortness of breath. Presented to the ER via EMS altered and respiratory distress. Placed on BiPAP. Medicine consulted for admission. Patient necessitating inpatient management. Medicine agreed to admit. Treated respiratory failure with BiPAP overnight. Pulmonology consulted. Gas stable this morning. Showing improvement. Stable for discharge to placement, has been graciously excepted by [facility]. Problems addressed as follows: -Respiratory failure with hypercapnia: respiratory acidosis suspected COPD exacerbation versus pneumonia can not rule out Congestive cardiac failure: Pulmonology consulted, and assisted with care during admission. Patient was initiated on BiPAP due to hypercapnic failure. Initiated on antibiotics with ceftriaxone and azithromycin. Completed 5 days of antibiotics by day of discharge. Showing improvement in response to BiPAP nightly. Will continue BiPAP at discharge. See respiratory therapy notes for settings. Stable to discharge to rehab at this time. Continue supplemental oxygen during the day at 2 L to maintain sats greater than 90%. White cell count on day of discharge 4.2. Hemoglobin 11.2. Will complete 3 more days of oral prednisone. Continue Bumex 1 mg p.o. daily for edema. SHAYLA: BUN 53, creatinine 1.6. At her baseline. Mood disorder: Continue Abilify 5 mg daily, BuSpar 20 mg daily Seizure disorder: Continue Keppra 500 Tran twice daily Hypertension: Continue propranolol 20 mg nightly, verapamil 120 mg nightly Morbidly obese: Complicates all aspects of her care Recommend CBC, CMP, magnesium levels in 3 to 5 days. Medication sent electronically to [facility] in [place]. Total time spent on discharge 35 minutes in counseling, documentation, chart review, and direct care with patient. Exam Data for Last 24 hours Vital signs and Labs for Last 24 Hours: Temp Pulse Resp BP Pulse Ox O2 Del Method O2 Flow Rate 98.9 F 71 18 116/47 L 92 L Nasal Cannula 1 08/13/23 11:56 08/13/23 11:56 08/13/23 11:56 08/13/23 11:56 08/13/23 11:56 08/13/23 13:00 08/13/23 13:00 FiO2 40 08/13/23 01:58 Laboratory Results - last 24 hr 08/13/23 05:19: WBC 4.2 L D, RBC 3.68 L, Hgb 11.2 L, Hct 36.6 L, MCV 99.3 H, MCH 30.4, MCHC 30.6 L, RDW 14.4, Plt Count 119 L, MPV 8.5, Neut % (Auto) 70.2, Lymph % (Auto) 17.4, Sebastian % (Auto) 11.5 H, Eos % (Auto) 0.8, Baso % (Auto) 0.1, Neut # (Auto) 2.9, Lymph # (Auto) 0.7, Sebastian # (Auto) 0.5, Eos # (Auto) 0.0, Baso # (Auto) 0.0, Sodium 140, Potassium 4.1, Chloride 102, Carbon Dioxide 38 H, Anion Gap 4.1 L, BUN 53 H, Creatinine 1.60 H, Estimated Creat Clear 24, Estimated GFR 32 L, Est GFR ( Amer) 39 L, Glucose 94, Calcium 8.5 08/13/23 11:03: Specimen Source Right radial, O2 % 1 lpm, ABG pH 7.32 L, ABG pCO2 66.5 H, ABG pO2 54.7 L, ABG HCO3 33.2 H, ABG Total CO2 35.2 H, ABG O2 Saturation 88 L, ABG Base Excess 7.0 H, Allan Test Acceptable I & O for Last 24 hours: Intake & Output 08/10/23 08/11/23 08/12/23 08/13/23 23:59 23:59 23:59 23:59 Intake Total 350 / 700 838 / 1238 760 / 1110 710 / 710 Output Total 1500 / 1900 1300 / 1300 1850 / 1850 900 / 900 Balance -1150 / -1200 -462 / -62 -1090 / -740 -190 / -190 Weight 149.4 kg 149.8 kg 148 kg 148.5 kg Constitutional Constitutional: no acute distress, morbidly obese and chronically ill appearing *Routine HEENT Exam Head: Present normocephalic Eye: Present EOMI and PERRL ENT: Present mucous membranes moist Comments: Small abrasions from mask on nose and right cheek *Routine Neck Exam Neck: Present supple; Absent lymphadenopathy *Routine Respiratory Exam Respiratory: Present distant breath sounds, diminished air movement and normal respiratory effort; Absent rhonchi, wheezes or crackles *Routine Cardiovascular Exam Cardiovascular: Present RRR *Routine Abdominal Exam Abdominal: Present soft and normoactive bowel sounds; Absent tenderness *Routine Rectal Exam Patient deferred: visual exam *Routine Exam Patient deferred: external exam *Routine Extremities Exam Extremities: Present edema (2+ to knees bilaterally.); Absent cyanosis or clubbing *Routine Skin Exam Skin: Present dry and warm; Absent rash *Routine Neurological Exam Neurological: Present alert, oriented X3 and moving all extremities; Absent altered mental status Results Data Completed and Pending Labs on day of discharge: Labs from last 24 hours 08/13/23 08/13/23 11:03 05:19 WBC 4.2 L D RBC 3.68 L Hgb 11.2 L Hct 36.6 L MCV 99.3 H MCH 30.4 MCHC 30.6 L RDW 14.4 Plt Count 119 L MPV 8.5 Neut % (Auto) 70.2 Lymph % (Auto) 17.4 Sebastian % (Auto) 11.5 H Eos % (Auto) 0.8 Baso % (Auto) 0.1 Neut # (Auto) 2.9 Lymph # (Auto) 0.7 Sebastian # (Auto) 0.5 Eos # (Auto) 0.0 Baso # (Auto) 0.0 Specimen Source Right radial O2 % 1 lpm ABG pH 7.32 L ABG pCO2 66.5 H ABG pO2 54.7 L ABG HCO3 33.2 H ABG Total CO2 35.2 H ABG O2 Saturation 88 L ABG Base Excess 7.0 H Allan Test Acceptable Sodium 140 Potassium 4.1 Chloride 102 Carbon Dioxide 38 H Anion Gap 4.1 L BUN 53 H Creatinine 1.60 H Estimated Creat Clear 24 Estimated GFR 32 L Est GFR ( Amer) 39 L Glucose 94 Calcium 8.5 DS: Diagnosis Discharge Diagnosis (1) Respiratory failure with hypoxia and hypercapnia: Status: Acute Code(s): J96.91 - Respiratory failure, unspecified with hypoxia; J96.92 - Respiratory failure, unspecified with hypercapnia (2) Pneumonia: Status: Acute Code(s): J18.9 - Pneumonia, unspecified organism (3) Morbid obesity: Status: Acute Code(s): E66.01 - Morbid (severe) obesity due to excess calories (4) SHAYLA (acute kidney injury): Status: Acute Code(s): N17.9 - Acute kidney failure, unspecified (5) Congestive cardiac failure: Status: Acute Code(s): I50.9 - Heart failure, unspecified Qualifiers: Heart failure type: unspecified Heart failure chronicity: unspecified Qualified Code(s): I50.9 - Heart failure, unspecified (6) Chronic kidney disease: Status: Acute Code(s): N18.9 - Chronic kidney disease, unspecified Qualifiers: Chronic kidney disease stage: stage 4 (severe) Qualified Code(s): N18.4 - Chronic kidney disease, stage 4 (severe) (7) Major depression: Status: Chronic Code(s): F32.9 - Major depressive disorder, single episode, unspecified Qualifiers: Major depression recurrence: recurrent Active/Remission status: currently active Major depression episode severity: severe Psychotic features: with psychotic features Qualified Code(s): F33.3 - Major depressive disorder, recurrent, severe with psychotic symptoms (8) Seizure disorder: Status: Acute Code(s): G40.909 - Epilepsy, unspecified, not intractable, without status epilepticus Meds Home Medications and Allergies Home Medications Medication Instructions Recorded Confirmed Type levetiracetam 500 mg tablet 500 mg PO BID 01/26/21 08/09/23 History magnesium oxide 400 mg (241.3 mg 400 mg PO DAILY 08/23/21 08/09/23 History magnesium) tablet multivitamin 1 each PO DAILY 08/23/21 08/09/23 History potassium chloride 10 mEq 10 meq PO BID 08/23/21 08/09/23 History tablet,extended release propranolol 20 mg tablet 20 mg PO 1700 08/23/21 08/09/23 History ropinirole 1 mg tablet 1 mg PO HS 08/23/21 08/09/23 History sumatriptan succinate 100 mg tablet 100 mg PO DAILYP PRN Migraine 08/23/21 08/09/23 History Headache topiramate 50 mg tablet 50 mg PO BID 08/23/21 08/09/23 History verapamil 120 mg tablet 120 mg PO HS 08/23/21 08/09/23 History aripiprazole 5 mg tablet 5 mg PO DAILY 08/07/22 08/09/23 History trazodone 100 mg tablet 100 mg PO HS 08/07/22 08/09/23 History budesonide-formoterol HFA 160 2 puff inhalation BID 06/20/23 08/09/23 History mcg-4.5 mcg/actuation aerosol inhaler buspirone 10 mg tablet 20 mg PO DAILY 06/20/23 08/09/23 History cholecalciferol (vitamin D3) 125 125 mcg PO DAILY 06/20/23 08/09/23 History mcg (5,000 unit) capsule omeprazole 40 mg capsule,delayed 40 mg PO DAILY 06/20/23 08/09/23 History release venlafaxine 75 mg tablet 75 mg PO DAILY 06/20/23 08/09/23 History nitroglycerin 0.4 mg sublingual 0.4 mg sublingual Q5MINP PRN Chest 08/09/23 08/09/23 History tablet Pain bumetanide 1 mg tablet 1 mg PO DAILY #30 tabs 08/13/23 Rx fluticasone fur. 100 mcg-umeclid 1 inh inhalation DAILY 30 days #1 08/13/23 Rx 62.5 mcg-vilant 25 mcg ea inhalat.powder (Trelegy Ellipta) ipratropium 0.5 mg-albuterol 3 mg 3 ml inhalation Q6HP PRN Shortness 08/13/23 Rx (2.5 mg base)/3 mL nebulization Of Breath #0 mL soln nystatin 100,000 unit/gram topical 1 applic topical QID #0 grams 08/13/23 Rx powder prednisone 20 mg tablet 40 mg (2 x 20 mg) PO DAILY 3 days 08/13/23 Rx #6 tabs New Prescriptions to Start Prescriptions: Michael Flor [id number] [Trelegy Ellipta] Michael Luke prednisone Michael Luke Allergies Allergy/AdvReac Type Severity Reaction Status Date / Time Penicillins Allergy Verified 08/09/23 06:26 Discharge Plan Disposition Patient Disposition: er SNF Condition: Fair Discharge Order Discharge Orders: Discharge Order (Routine); Ordered 08/13/23 Ordered By: Michael Luke Follow up Plan Follow up with: Armen Sheffield MD [Physician] - Enter time for follow up Zachariah Mercado MD [Primary Care Provider] - Enter time for follow up ([facility]) Prescriptions/Medication Reconciliation: New ipratropium-albuterol 0.5 mg-3 mg(2.5 mg base)/3 mL Solution For Nebulization 3 ml inhalation Q6HP PRN (Reason: Shortness Of Breath) Qty: 0 0RF nystatin 100,000 unit/gram Powder 1 applic topical QID Qty: 0 0RF Trelegy Ellipta 100-62.5-25 mcg Blister With Device 1 inh inhalation DAILY 30 Days Qty: 1 0RF bumetanide 1 mg tablet 1 mg PO DAILY Qty: 30 0RF prednisone 20 mg Tablet 40 mg PO DAILY 3 Days Qty: 6 0RF Continued verapamil 120 MG tablet 120 mg PO HS propranolol 20 MG tablet 20 mg PO 1700 multivitamin 1 EACH tablet 1 each PO DAILY ropinirole 1 MG tablet 1 mg PO HS sumatriptan succinate 100 MG tablet 100 mg PO DAILYP PRN (Reason: Migraine Headache) potassium chloride 10 MEQ tablet extended release 10 meq PO BID magnesium oxide 400 MG tablet 400 mg PO DAILY topiramate 50 MG tablet 50 mg PO BID trazodone 100 mg tablet 100 mg PO HS aripiprazole 5 mg tablet 5 mg PO DAILY Patient Comments: TAKE ONE TABLET BY MOUTH EVERY DAY buspirone 10 mg tablet 20 mg PO DAILY cholecalciferol (vitamin D3) 125 mcg (5,000 unit) capsule 125 mcg PO DAILY Patient Comments: TAKE ONE CAPSULE BY MOUTH EVERY DAY budesonide-formoterol 160-4.5 mcg/actuation HFA aerosol inhaler 2 puff INHALATION BID Patient Comments: INHALE TWO PUFFS BY MOUTH TWICE DAILY omeprazole 40 mg Capsule,Delayed Release(Dr/Ec) 40 mg PO DAILY venlafaxine 75 mg tablet 75 mg PO DAILY Patient Comments: TAKE ONE TABLET BY MOUTH EVERY DAY nitroglycerin 0.4 mg tablet, sublingual 0.4 mg sublingual Q5MINP PRN (Reason: Chest Pain) Patient Comments: DISSOLVE 1 TABLET UNDER THE TONGUE EVERY 5 MINUTES NEEDED FOR CHEST PAIN. DO NOT EXCEED A TOTAL OF 3 DOSES IN 15 MINUTES. IF NO RELIEF AFTER 3 DOSES CALL 911/GO TO ER levetiracetam 500 MG tablet 500 mg PO BID Discontinued furosemide 40 mg tablet 40 mg PO BIDL 30 Days Qty: 60 0RF Problem Reconciliation Problems Reviewed?: Yes Patient Discharge Instructions ACTIVITY: Continue current activity DIET: continue same diet Patient Instructions: DI for Chronic Obstructive Pulmonary Disease, DI for Shortness of Breath, DI for Central Line-Associated Bloodstream Infections, Catheter-associated Urinary Tract Infection Providers Primary Care Provider: Zachariah Mercado Admit Provider: Michael Luke Attending Provider: Michael Luke
[2023-08-13] MEDS: AZITHROMYCIN 250MG TABLET 500 MG PO (13:34)
[2023-08-13] MEDS: CEFTRIAXONE 1 GM 1 GM in 0.9 % SODIUM CHLORIDE 50 ML IV (13:35)
--- NOTE | 2023-08-13 13:40 | PC.NURSE ---
Current Medications Destiny Diaz 1960 Albuterol/Ipratropium (Ipratropium/Albuterol 3 Ml Neb) 3 ml IH Q6HP PRN PRN Reason: Shortness Of Breath Stop: 09/11/23 10:29 Aripiprazole (Aripiprazole 10mg Tablet) 5 mg PO DAILY CARLY Stop: 09/09/23 08:59 Last Admin: 08/13/23 08:33 Dose: 5 mg Azithromycin (Azithromycin 250mg Tablet) 500 mg PO 2100 CARLY Stop: 08/19/23 21:01 Last Admin: 08/13/23 13:34 Dose: 500 mg Bumetanide (Bumetanide 1mg/4ml Vial) 1 mg IV DAILY CARLY Stop: 09/10/23 13:44 Last Admin: 08/13/23 08:33 Dose: 1 mg Buspirone HCl (Buspirone Hcl 10 Mg Tablet) 20 mg PO DAILY CARLY Stop: 09/09/23 08:59 Last Admin: 08/13/23 08:33 Dose: 20 mg Fluticasone/Umeclidinium/Vilanterol (Fluticasone/Umeclidin/Vilanter 100/62.5/25mcg Inhaler) 1 puff IH DAILY CARLY Stop: 09/12/23 08:59 Last Admin: 08/13/23 06:21 Dose: 1 puff Heparin Sodium (Porcine) (Heparin Sodium 5,000 Unit/Ml Vial) 5,000 unit SQ BID CARLY Stop: 09/08/23 20:59 Last Admin: 08/13/23 08:33 Dose: 5,000 unit Ceftriaxone Sodium 1 gm/ (Sodium Chloride) 50 mls @ 100 mls/hr IV Q24H CARLY Stop: 08/19/23 20:59 Last Admin: 08/13/23 13:35 Dose: 100 mls/hr Levetiracetam (Levetiracetam 500 Mg Tablet) 500 mg PO BID CARLY Stop: 09/08/23 20:59 Last Admin: 08/13/23 08:33 Dose: 500 mg Magnesium Oxide (Magnesium Oxide 400mg Tablet) 400 mg PO DAILY CARLY Stop: 09/09/23 08:59 Last Admin: 08/13/23 08:33 Dose: 400 mg Morphine Sulfate (Morphine 4mg/Ml Syringe) 4 mg IV Q4HP PRN PRN Reason: Severe Pain (7-10) Stop: 09/08/23 04:13 Last Admin: 08/13/23 04:11 Dose: 4 mg Nystatin (Nystatin Topical Powder 30gm) 0 gm TP QID [facility] Stop: 09/08/23 09:59 Last Admin: 08/13/23 13:34 Dose: 1 applic Ondansetron HCl (Ondansetron 4mg/2ml Vial) 4 mg IV Q8HP PRN PRN Reason: Nausea Stop: 09/08/23 04:13 Pantoprazole Sodium (Pantoprazole 40mg Tablet) 40 mg PO HS [facility] [place] Stop: 09/12/23 20:59 Prednisone (Prednisone 20mg Tab) 40 mg PO DAILY [facility] [place] Stop: 08/16/23 08:59 Last Admin: 08/13/23 08:32 Dose: 40 mg Propranolol HCl (Propranolol 20mg Tab) 20 mg PO 1700 [facility] [place] Stop: 09/08/23 16:59 Last Admin: 08/12/23 17:26 Dose: 20 mg Ropinirole HCl (Ropinirole 1mg Tablet) 1 mg PO HS [facility] [place] Stop: 09/08/23 20:59 Last Admin: 08/12/23 20:07 Dose: 1 mg Sodium Chloride (Sodium Chloride 0.9% 10ml Flush Syringe) 10 ml IV NEEDED PRN PRN Reason: Maintain IV Site Stop: 09/08/23 07:09 Sodium Chloride (Sodium Chloride 3% 15ml Neb) 3 ml IH ONCE PRN PRN Reason: INDUCE [employer]LECTION Stop: 09/09/23 11:37 Venlafaxine HCl (Venlafaxine Xr 75mg Capsule) 75 mg PO DAILY [facility] [place] Stop: 09/09/23 08:59 Last Admin: 08/13/23 08:32 Dose: 75 mg Verapamil HCl (Verapamil Sr 120mg Tablet) 120 mg PO HS [facility] [place] Stop: 09/08/23 20:59 Last Admin: 08/12/23 20:07 Dose: 120 mg
== END 2023-08-13 16:40 | DRG 189 ==
LOC: ER 08-09 04:27 → 2ND 08-09 04:33
PROVIDERS: Internal Medicine; Internal Medicine Pulmonary Disease; Nurse Practitioner Family; Admitting Provider Internal Medicine Adolescent Medicine; Emergency Provider Emergency Medicine; PCP Internal Medicine Adolescent Medicine; Visit Provider Internal Medicine Adolescent Medicine
DX: J96.02 Acute respiratory failure with hypercapnia (principal); J18.9 Pneumonia, unspecified organism; J44.1 Chronic obstructive pulmonary disease with (acute) exacerbation; Z68.44 Body mass index [BMI] 60.0-69.9, adult; N17.9 Acute kidney failure, unspecified; N18.4 Chronic kidney disease, stage 4 (severe); F33.3 Major depressive disorder, recurrent, severe with psychotic symptoms; E87.29 Other acidosis; E66.2 Morbid (severe) obesity with alveolar hypoventilation; J44.0 Chronic obstructive pulmonary disease with (acute) lower respiratory infection; J96.01 Acute respiratory failure with hypoxia; I50.9 Heart failure, unspecified; J44.9 Chronic obstructive pulmonary disease, unspecified; G40.909 Epilepsy, unspecified, not intractable, without status epilepticus
CPT/HCPCS: 36556; 36415; 71045; 71275; 80048; 80053; 81001; 82803; 83605; 83735; 83880; 84100; 84484; 85007; 85025; 93005; 94640; 94660; 97110; 97163; 97166; 97530; 99291; C1751; J0456; J0696; J1953; Q9967

== ENCOUNTER 2023-09-04 16:22 | Inpatient (IN) | payer MEDICARE, MEDICAID, SELFPAY ==
[2023-09-04] VITALS (15 sets, daily range): BP systolic 120–146; BP diastolic 59–87; PULSE 67–88; RESP 16–28; TEMP 36.6–37.7; O2SAT 92–99; BMI 51.7; BMI 51.8
--- NOTE | 2023-09-04 16:21 | ECG_ITS ---
APPROVED REPORT Exam: Resting ECG HR:88 bpm ECG Measurements Heart Rate 88 AXES LA 168 P 68 QRSd 97 QRS 95 QT 357 T 53 QTc 402 Conclusion SINUS RHYTHM POSSIBLE LEFT ATRIAL ENLARGEMENT [-0.1mV P-WAVE IN V1/V2] INDETERMINATE AXIS BORDERLINE ECG Electronically signed by : SELVIN STOKES, 09/04/2023 22:23:04
--- NOTE | 2023-09-04 16:33 | CA_ITS ---
FINAL REPORT TECHNIQUE: Ultrasound images of the deep venous system were obtained from the left groin to the calf veins. CLINICAL HISTORY: LLE swelling/redness/pain, denies trauma, morbid obesity with lymphedema, hx HF, CP, SOB, COPD, smoker. COMPARISON: None FINDINGS: The deep venous system is normally compressible. Normal flow is identified. IMPRESSION: No evidence of left lower extremity DVT. Reviewed, Interpreted and Dictated by Bhaskar Rao MD Transcribed by Joann Grider Authenticated and . [facility]
--- NOTE | 2023-09-04 16:34 | XR_ITS ---
PROCEDURE INFORMATION: Exam: XR Chest Exam date and time: 09/04/2023 4:46 PM Age: 63 years old Clinical indication: Shortness of breath; Additional info: SOA TECHNIQUE: Imaging protocol: Radiologic exam of the chest. Views: 1 view. COMPARISON: CR XR CHEST PORTABLE 08/10/2023 3:22 PM and 06/19/2023 and 05/07/2023 FINDINGS: Lungs: Unremarkable. No consolidation. Pleural spaces: Unremarkable. No pleural effusion. No pneumothorax. Heart/Mediastinum: Unremarkable. No cardiomegaly. Bones/joints: Unremarkable. IMPRESSION: Stable chest x-ray with no acute disease.
--- NOTE | 2023-09-04 16:38 | PC.NURSE ---
CALLED [facility] FOR MEDICAL RECORDS I WAS TRANSFERRED TO CLOTH GRADER(MALA)WHO STATES MEDICAL RECORDS WAS STILL IN FACILITY AND TO LEAVE A MESSAGE AND THEY WOULD TAKE CARE OF WHAT I WAS NEEDING
--- NOTE | 2023-09-04 16:42 | HMH.EDGENADL ---
Discharge Plan Disposition Patient Disposition: Admitted Clinical Impressions Clinical Impression: Acute on chronic respiratory failure with hypoxia and hypercapnia, Acute exacerbation of CHF (congestive heart failure), Acute exacerbation of chronic obstructive pulmonary disease, Body lice infestation Discharge ED Provider: Chely Hernandez General Adult HPI General Chief complaint: Shortness of Breath/Dyspnea Stated complaint: SOA Time Seen by Provider: 09/04/23 16:23 History of Present Illness HPI narrative: This patient is a 63-year-old female with a history of morbid obesity, chronic respiratory failure on 2 to 3 L nasal cannula at home, obesity hypoventilation syndrome, seizure disorder, COPD, CHF, CKD, GERD presenting to the emergency department for evaluation with concern for shortness of breath. Patient reports that she called EMS because she was feeling very short of air. She notes that she was admitted to [facility] for the same thing for approximately 3 weeks and was discharged home yesterday. She stated that she was initially doing okay yesterday until today. She denies any fevers, chills, chest pain, abdominal pain, nausea, vomiting, changes in bowel movements, rashes, swelling, or other concerns. She does complain of cough. At this time, I do not have records available from [place], however these have been requested so that I can review patient's course of treatment and diagnoses. EMS arrived with the patient who noted that she was wheezing with hypoxia on her 3 L nasal cannula, so they bumped up to 4 L and gave her a DuoNeb en route. Otherwise, they noted vitals are stable. Related Data Home Medications Medication Instructions Recorded Confirmed levetiracetam 500 mg tablet 500 mg PO BID 01/26/21 08/09/23 magnesium oxide 400 mg (241.3 mg 400 mg PO DAILY 08/23/21 08/09/23 magnesium) tablet multivitamin 1 each PO DAILY 08/23/21 08/09/23 potassium chloride 10 mEq 10 meq PO BID 08/23/21 08/09/23 tablet,extended release propranolol 20 mg tablet 20 mg PO 1700 08/23/21 08/09/23 ropinirole 1 mg tablet 1 mg PO HS 08/23/21 08/09/23 sumatriptan succinate 100 mg tablet 100 mg PO DAILYP PRN Migraine 08/23/21 08/09/23 Headache topiramate 50 mg tablet 50 mg PO BID 08/23/21 08/09/23 verapamil 120 mg tablet 120 mg PO HS 08/23/21 08/09/23 aripiprazole 5 mg tablet 5 mg PO DAILY 08/07/22 08/09/23 trazodone 100 mg tablet 100 mg PO HS 08/07/22 08/09/23 budesonide-formoterol HFA 160 2 puff inhalation BID 06/20/23 08/09/23 mcg-4.5 mcg/actuation aerosol inhaler buspirone 10 mg tablet 20 mg PO DAILY 06/20/23 08/09/23 cholecalciferol (vitamin D3) 125 125 mcg PO DAILY 06/20/23 08/09/23 mcg (5,000 unit) capsule omeprazole 40 mg capsule,delayed 40 mg PO DAILY 06/20/23 08/09/23 release venlafaxine 75 mg tablet 75 mg PO DAILY 06/20/23 08/09/23 nitroglycerin 0.4 mg sublingual 0.4 mg sublingual Q5MINP PRN Chest 08/09/23 08/09/23 tablet Pain Previous Rx's Medication Instructions Recorded bumetanide 1 mg tablet 1 mg PO DAILY #30 tabs 08/13/23 fluticasone fur. 100 mcg-umeclid 1 inh inhalation DAILY 30 days #1 08/13/23 62.5 mcg-vilant 25 mcg ea inhalat.powder (Trelegy Ellipta) ipratropium 0.5 mg-albuterol 3 mg 3 ml inhalation Q6HP PRN Shortness 08/13/23 (2.5 mg base)/3 mL nebulization Of Breath #0 mL soln nystatin 100,000 unit/gram topical 1 applic topical QID #0 grams 08/13/23 powder prednisone 20 mg tablet 40 mg (2 x 20 mg) PO DAILY 3 days 08/13/23 #6 tabs Allergies Allergy/AdvReac Type Severity Reaction Status Date / Time Penicillins Allergy Verified 08/09/23 06:26 [facility] Disclaimer: The information contained in this section may have been updated after the patient was seen, as this information can be updated by other users. Medical History Obesity hypoventilation syndrome Pneumonia Respiratory failure with hypoxia and hypercapnia Kidney stone Chronic kidney disease Sinus headache History of back pain History of gastroesophageal reflux (GERD) Congestive heart failure Seizure disorder COPD (chronic obstructive pulmonary disease) Surgical History History of cholecystectomy History of section Family History Other Family history of acute congestive heart failure Family history of cancer Family history of myocardial infarction Social History Smoking Status: Current every day smoker tobacco type: cigarettes packs per day: 1 second hand exposure: Yes alcohol intake: never counseling given: No substance use type: denies use counseling given: No current occupational status: retired, disabled and other Travel in the last 8 weeks: None adopted: No caregiver/support person: No foster care: No household members: spouse housing: house marital status: 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; 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 pets and animals: Yes pets and animals: cat(s) Hx Recent Travel: No sexually active: No caffeine: Yes physical activity: none cony/pentecostalism: Holiness special cony needs: No working smoke detector in home: Yes fire extinguisher in home: Yes carbon monox detector in home: No firearms in home: No do you feel safe at home: Yes victim of physical abuse: No victim of emotional abuse: No victim of sexual abuse: No would you like helpful sources: No ROS Obtained: Yes All systems reviewed & no additional complaints except as documented Physical Exam General General appearance: alert, in no apparent distress and obese Head Head exam: atraumatic and normocephalic Eye Eye exam: Present normal appearance, PERRL and EOMI ENT ENT exam: Present normal exam, normal oropharynx, mucous membranes moist and normal external ear exam Neck Neck exam: Present normal inspection, full ROM and trachea midline; Absent tenderness Chest Chest inspection: Present normal inspection and symmetric chest wall rise; Absent tenderness Respiratory Respiratory exam: Present wheezes, accessory muscle use, prolonged expiratory phase and other (Bilateral wheezing noted with obesity hypoventilation. Patient has prolonged expiratory phase and mild accessory muscle use. No tachypnea); Absent stridor Cardiovascular Cardiovascular exam: Present regular rate and normal rhythm Abdominal Exam Abdominal exam: Present soft; Absent distention, tenderness or guarding Extremities Exam Extremities exam: Present full ROM, normal capillary refill and edema (Mild bilateral lower extremity edema, left greater than right. Left lower leg also is red, warm, and tender to palpation); Absent tenderness Back Exam Back exam: Present normal inspection and full ROM; Absent tenderness Neurological Exam Neurological exam: Present alert, oriented X3, CN II-XII intact and normal gait; Absent motor sensory deficit Psychiatric Psychiatric exam: Present normal affect and normal mood Skin Skin exam: Present warm and dry Medical Decision Making Medical Records Medical records reviewed: Yes I reviewed the patient's medical records. Harjinder Inquiry Pt receiving controlled substance: No Vital Signs: 09/04/23 16:22 09/04/23 16:30 09/04/23 17:15 Temperature 98.0 F Temperature Source Axillary Pulse Rate 87 86 Pulse Rate [Right] 70 Respiratory Rate 28 H Blood Pressure 140/77 143/74 H Blood Pressure [Right Arm] 140/77 Blood Pressure Mean [Right Arm] 98 Blood Pressure Source [Right Arm] Automatic Cuff 02 Sat by Pulse Oximetry 98 93 L 94 L Oxygen Delivery Method Room Air Nasal Cannula Nasal Cannula Oxygen Flow Rate (LPM) 3.5 3.5 09/04/23 17:30 09/04/23 17:45 09/04/23 18:00 Temperature Temperature Source Pulse Rate 88 87 75 Pulse Rate [Right] Respiratory Rate Blood Pressure 138/74 120/65 124/59 L Blood Pressure [Right Arm] Blood Pressure Mean [Right Arm] Blood Pressure Source [Right Arm] 02 Sat by Pulse Oximetry 94 L 94 L 98 Oxygen Delivery Method Nasal Cannula Nasal Cannula BiPAP Oxygen Flow Rate (LPM) 3.5 3.5 09/04/23 18:30 Temperature Temperature Source Pulse Rate 82 Pulse Rate [Right] Respiratory Rate Blood Pressure 129/74 Blood Pressure [Right Arm] Blood Pressure Mean [Right Arm] Blood Pressure Source [Right Arm] 02 Sat by Pulse Oximetry 96 Oxygen Delivery Method BiPAP Oxygen Flow Rate (LPM) Lab Data Lab results reviewed: Yes I reviewed the patient's lab results. Lab Results 09/04/23 16:33: VBG pH 7.26 L, VBG pCO2 81.8 H, VBG pO2 37.7, VBG HCO3 35.8 H, VBG Total CO2 38.3 H, VBG O2 Saturation 72.7 H, VBG Base Excess 8.7 H, VBG Lactic Acid 1.6 09/04/23 17:35: WBC 7.0, RBC 4.29, Hgb 12.7, Hct 41.2, MCV 96.2, MCH 29.7, MCHC 30.9 L, RDW 14.3, Plt Count 162, MPV 8.1, Neut % (Auto) 69.6, Lymph % (Auto) 21.5, [place] % (Auto) 7.9, Eos % (Auto) 0.4, Baso % (Auto) 0.7, Neut # (Auto) 4.9, Lymph # (Auto) 1.5, [place] # (Auto) 0.6, Eos # (Auto) 0.0, Baso # (Auto) 0.1, D-Dimer 0.95 H, Sodium 138, Potassium 4.3, Chloride 92 L, Carbon Dioxide 38 H, Anion Gap 12.3, BUN 36 H, Creatinine 1.70 H, Estimated Creat Clear 34, Estimated GFR 30 L, Est GFR ( Amer) 36 L, Glucose 117 H, Calcium 8.9, Total Bilirubin 0.5, AST 33, ALT 18, Alkaline Phosphatase 98, Troponin I 0.03, NT-Pro-B Natriuret Pep 37668 H, Total Protein 7.3 D, Albumin 3.8, Globulin 3.5 H, Albumin/Globulin Ratio 1.1 09/04/23 18:19: SARS-CoV-2 (PCR) Not detected, Influenza A Untype (PCR) Not detected, Influenza Type B (PCR) Not detected 09/04/23 17:35 09/04/23 17:35 Orders (Tests/Meds): ED MEDICATIONS Generic Name Dose Route Start Last Admin Trade Name Freq PRN Reason Stop Dose Admin Acetaminophen 1,000 mg 09/04/23 20:14 Acetaminophen 325mg Tab PO 10/04/23 20:13 Q6HP PRN Fever or Mild Pain (1-3) Hydrocodone Bitart/Acetaminophen 1 tab 09/04/23 20:14 Hydrocodone/Apap 5/325 Mg Tablet PO 10/04/23 20:13 Q4HP PRN Mild to Moderate Pain (1-6) Albuterol/Ipratropium 3 ml 09/05/23 00:00 Ipratropium/Albuterol 3 Ml Neb 10/05/23 00:00 Q6RT COUNT INCLUDES THE [facility] Bisoprolol Fumarate 5 mg 09/04/23 20:30 Bisoprolol 5mg Tablet PO 10/04/23 20:29 DAILY COUNT INCLUDES THE [facility] Budesonide 0.5 mg 09/05/23 06:00 Budesonide 0.5mg/2ml [facility] 10/05/23 05:59 BIDRT COUNT INCLUDES THE [facility] Bumetanide 2 mg 09/04/23 21:00 Bumetanide 1mg/4ml Vial IV 10/04/23 20:59 BID COUNT INCLUDES THE [facility] Docusate Sodium 100 mg 09/04/23 20:30 Docusate Sodium 100 Mg Capsule PO 10/04/23 20:29 DAILY COUNT INCLUDES THE [facility] Heparin Sodium (Porcine) 5,000 unit 09/04/23 20:15 Heparin Sodium 5,000 Unit/Ml Vial SQ 10/04/23 20:14 Q8H COUNT INCLUDES THE [facility] Morphine Sulfate 4 mg 09/04/23 20:14 Morphine 4mg/Ml Syringe IV 10/04/23 20:13 Q4HP PRN Severe Pain (7-10) Nicotine 21 mg 09/04/23 20:14 Nicotine 21mg/24hr Patch TD 10/04/23 20:13 DAILYP PRN Nicotine Cravings Ondansetron HCl 4 mg 09/04/23 20:14 Ondansetron 4mg/2ml Vial IV 10/04/23 20:13 Q8HP PRN Nausea Pantoprazole Sodium 40 mg 09/04/23 20:30 Pantoprazole 40mg Tablet PO 10/04/23 20:29 DAILY COUNT INCLUDES THE [facility] Sodium Chloride 10 ml 09/04/23 20:19 Sodium Chloride 0.9% 10ml Flush Syringe IV 10/04/23 20:18 NEEDED PRN Maintain IV Site Spironolactone 25 mg 09/04/23 20:30 Spironolactone 25mg Tablet PO 10/04/23 20:29 DAILY COUNT INCLUDES THE [facility] Discontinued Medications Generic Name Dose Route Start Last Admin Trade Name Freq PRN Reason Stop Dose Admin Albuterol/Ipratropium 9 ml 09/04/23 16:34 09/04/23 17:01 Ipratropium/Albuterol 3 Ml [facility] 09/04/23 16:35 9 ml ONCE ONE Administration Methylprednisolone Sodium Succinate 125 mg 09/04/23 17:55 09/04/23 18:00 Methylprednisolone Sod Succ 125mg Vial IV 09/04/23 17:56 125 mg ONCE ONE Administration ORDERS Category Date Time Status XR chest portable Stat Exams 09/04/23 16:34 Completed Complete Blood Count Auto Diff Stat Lab 09/04/23 17:35 Completed Comprehensive Metabolic Panel Stat Lab 09/04/23 17:35 Completed D-Dimer Stat Lab 09/04/23 17:35 Completed NT Pro Brain Natriuretic Pep. Stat Lab 09/04/23 17:35 Completed Rapid PCR Covid and Flu A/B Stat Lab 09/04/23 18:19 Completed Troponin I Q3H Lab 09/04/23 19:45 Ordered Troponin I Q3H Lab 09/04/23 22:45 Ordered Troponin I Stat Lab 09/04/23 17:35 Completed Venous Blood Gas Stat RT 09/04/23 16:33 Completed CA venous doppler LE LT Stat Y 09/04/23 16:33 Completed ECG Data Tracing #1: I reviewed this ECG and interpreted as documented below: Normal sinus rhythm with a ventricular rate of [address] changes concerning for ischemia. Normal intervals. ECG initial impression date: 09/04/23 ECG initial impression time: 16:22 Medical Decision Narrative: In summary, this patient is a 63-year-old female presenting to the Emergency Department for evaluation of shortness of breath. Differential diagnoses considered include but are not limited to pneumonia, CHF exacerbation, COPD exacerbation, acute on chronic respiratory failure, PE. Ruling out the most morbid conditions drove assessment. It should be noted patient's history includes COPD, CHF, and obesity hypoventilation which are likely not at goal therapy. This complicates all aspects of care by increasing patient's risk for morbidity. I reviewed patient's past medical records and noted previous admission here for respiratory failure back in July. She was reportedly admitted for the last 3 weeks to [place], for which records been requested.. On exam, patient is alert and oriented but is slow to respond with prolonged expiratory phase and wheezing. Workup included CBC, CMP, PT, PTT, VBG, troponin, BNP, D-dimer, chest x-ray, DVT ultrasound of the left lower extremity. She was given DuoNebs x 3 as well as methylprednisolone. I independently interpreted x-ray and ultrasound prior to the radiologist read and noted no obvious acute focal pneumonia and no acute DVT. Please see their read for final interpretation. Labs were obtained that demonstrated significantly elevated BNP as well as decompensated respiratory acidosis. D-dimer is negative per years criteria. Given the patient's decompensated respiratory failure, she was put on BiPAP. She required frequent reassessments and monitoring while on BiPAP to assess for response, which she tolerated very well with improvement in her mental status and respiratory status. Patient did have significant infestation with either bedbugs or lice, so decontamination was performed and patient care was shampooed. She tolerated this well. Ultimately given her decompensated respiratory failure as well as CHF, I called and had an interactive discussion with the hospitalist who admitted the patient for further evaluation and management. Critical Care Critical Care Time Critical Care Time: Yes Attestation: On 09/04/23, the high probability of a clinically significant, sudden or life threatening deterioration of the following system(s) required my full and direct attention, intervention and personal management. The time I documented below is in addition to time spent performing reported procedures but includes the following listed in this critical care notation. Total Time Total Critical Care Time: 45
[2023-09-04] MEDS: IPRATROPIUM/ALBUTEROL 3 ML NEB 9 ML IH (17:01)
[2023-09-04 17:48] LABS: Basophils # 0.1 K/mm3 (0-0.2); Basophils % 0.7 % (0.1-2.0); Eosinophils % 0.4 % (0.1-12.0); Hematocrit 41.2 % (37.0-47.0); Hemoglobin 12.7 g/dL (12.2-16.2); Lymphocytes # 1.5 K/mm3 (0.7-4.5); Lymphocytes % 21.5 % (10-50); Mean Corpuscular HGB Conc 30.9 g/dL (31.8-35.4); Mean Corpuscular Hemoglobin 29.7 pg (27.0-31.2); Mean Corpuscular Volume 96.2 fl (81-99); Mean Platelet Volume 8.1 fl (7.4-10.4); Monocytes # 0.6 K/mm3 (0.1-1.0); Monocytes % 7.9 % (1.7-9.3); Neutrophils # 4.9 K/mm3 (1.8-7.8); Neutrophils % 69.6 % (37.0-80.0); Platelet Count 162 K/mm3 (142-424); Red Blood Count 4.29 M/mm3 (4.20-5.40); Red Cell Distribution Width 14.3 % (11.5-17.5)
[2023-09-04 17:51] LABS: Lactate Venous 1.6 mmol/L (0.4-2.0); VBG Base Excess 8.7 mmol/L (-2.4-2.3); VBG HCO3 35.8 mmol/L (23-30); VBG Oxygen Saturation 72.7 % (50-70); VBG PH 7.26 mmol/L (7.31-7.41); VBG PO2 37.7 mmol/L (28-40); VBG Total CO2 38.3 mmol/L (23-27)
[2023-09-04 17:54] LABS: VBG PCO2 81.8 mmol/L (35-51)
--- NOTE | 2023-09-04 17:55 | PC.NURSE ---
CALLING RESP FOR PT TO BE PLACED ON BIPAP PER
[2023-09-04 17:59] LABS: Alanine Aminotransferase 18 U/L (12-78); Albumin Level 3.8 g/dl (3.5-5.0); Albumin/Globulin Ratio 1.1 (1.1-1.8); Alkaline Phosphatase 98 U/L (38-126); Aspartate Amino Transferase 33 U/L (14-36); Bilirubin,Total 0.5 mg/dl (0.2-1.3); Blood Urea Nitrogen 36 mg/dl (7-17); Calcium 8.9 mg/dl (8.4-10.2); Chloride 92 mmol/L (98-107); Creatinine Clearance Estimated 34 mL/min (50-200); Estimated Glomerular Filt Rate 30 ml/min (>60); GFR (African American) 36 ML/MIN (>60); Globulin 3.5 g/dL (1.3-3.2); Glucose 117 mg/dl (74-100); Potassium 4.3 mmoL/L (3.5-5.1); Sodium 138 mmol/L (136-145); Total Protein,Serum 7.3 g/dl (6.3-8.2)
[2023-09-04] MEDS: METHYLPREDNISOLONE SOD SUCC 125MG VIAL 125 MG IV (18:00)
--- NOTE | 2023-09-04 18:17 | PC.NURSE ---
PT IS NOW ON BIPAP
[2023-09-04 18:23] LABS: Coronavirus 19, PCR Not Detected (NotDetected); Influenza A, PCR Not Detected (NotDetected); Influenza B, PCR Not Detected (NotDetected)
[2023-09-04 19:10] LABS: Troponin I 0.03 ng/ml (0.00-0.034)
[2023-09-04 19:14] LABS: Carbon Dioxide 38 mmol/L (22.0-30.0)
[2023-09-04 19:15] LABS: Anion Gap 12.3 mEq/L (5-15); D-Dimer 0.95 ug/mL (0.0-0.5)
[2023-09-04 19:41] LABS: NT Pro Brain Natriuretic Pep. 12600 pg/mL (0-125)
--- NOTE | 2023-09-04 19:51 | PC.NURSE ---
Group Reservations Coordinator notified of admission, pt will be going to room 218.
--- NOTE | 2023-09-04 19:54 | PC.NURSE ---
ACUTE ADMISSION TO [address] STEP DOWN WITH DX OF ACUTE COPD WITH EXACERBATION, CHF AND RESP FAILURE TO SERVICE OF THE HOSPITALIST.
--- NOTE | 2023-09-04 20:00 | PC.NURSE ---
Patient currently receiving head to toe bath, along with lice treatment per staff. Patient decontaminated at this time before admission to floor.
--- NOTE | 2023-09-04 20:22 | P.HP_ITS ---
History of Present Illness *Admission Date: 09/04/23 *Reason for visit:: Shortness of air *History of present illness: This is a 63-year-old female that presents to [facility] emergency department with concerns of shortness of air over several days. She describes a recent hospitalization at [facility] with discharge from the hospital a day prior to her ED presentation. Her past medical history is significant for BMI 52 with OHS and COPD overlap with significant tobacco use history. She also has chronic HFpEF with class C and NYHA IV on presentation. She denied associated retrosternal chest pain, palpitations or confusion. In the ED she describes a nonproductive cough with no associated fever, chills or hemoptysis. She denied nausea, vomiting or diarrhea. She reports no recent seizures and describes a history of noncompliance with NIPPV therapy. [facility] Medical History (Updated 09/05/23 @ 05:30 by Gilberto Lim MD) Mood disorder Tobacco dependence CKD (chronic kidney disease) stage 4, GFR 15-29 ml/min BMI 50.0-59.9, adult Obesity hypoventilation syndrome Respiratory failure with hypoxia and hypercapnia Kidney stone History of back pain History of gastroesophageal reflux (GERD) Congestive heart failure Seizure disorder COPD (chronic obstructive pulmonary disease) Surgical History History of cholecystectomy History of section Family History Other Family history of acute congestive heart failure Family history of cancer Family history of myocardial infarction Social History Smoking Status: Current every day smoker tobacco type: cigarettes packs per day: 1 second hand exposure: Yes alcohol intake: never counseling given: No substance use type: denies use counseling given: No current occupational status: retired, disabled and other Travel in the last 8 weeks: None adopted: No caregiver/support person: No foster care: No household members: spouse housing: house marital status: 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; 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 pets and animals: Yes pets and animals: cat(s) Hx Recent Travel: No sexually active: No caffeine: Yes physical activity: none 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 special cony needs: No working smoke detector in home: Yes fire extinguisher in home: Yes carbon monox detector in home: No firearms in home: No do you feel safe at home: Yes victim of physical abuse: No victim of emotional abuse: No victim of sexual abuse: No would you like helpful sources: No Review of Systems Review of Systems Review of systems:: pertinent systems reviewed and negative unless documented below Meds Home Medications and Allergies Home Medications Medication Instructions Recorded Confirmed Type levetiracetam 500 mg tablet 500 mg PO BID 01/26/21 08/09/23 History magnesium oxide 400 mg (241.3 mg 400 mg PO DAILY 08/23/21 08/09/23 History magnesium) tablet multivitamin 1 each PO DAILY 08/23/21 08/09/23 History potassium chloride 10 mEq 10 meq PO BID 08/23/21 08/09/23 History tablet,extended release propranolol 20 mg tablet 20 mg PO 1700 08/23/21 08/09/23 History ropinirole 1 mg tablet 1 mg PO HS 08/23/21 08/09/23 History sumatriptan succinate 100 mg tablet 100 mg PO DAILYP PRN Migraine 08/23/21 08/09/23 History Headache topiramate 50 mg tablet 50 mg PO BID 08/23/21 08/09/23 History verapamil 120 mg tablet 120 mg PO HS 08/23/21 08/09/23 History aripiprazole 5 mg tablet 5 mg PO DAILY 08/07/22 08/09/23 History trazodone 100 mg tablet 100 mg PO HS 08/07/22 08/09/23 History budesonide-formoterol HFA 160 2 puff inhalation BID 06/20/23 08/09/23 History mcg-4.5 mcg/actuation aerosol inhaler buspirone 10 mg tablet 20 mg PO DAILY 06/20/23 08/09/23 History cholecalciferol (vitamin D3) 125 125 mcg PO DAILY 06/20/23 08/09/23 History mcg (5,000 unit) capsule omeprazole 40 mg capsule,delayed 40 mg PO DAILY 06/20/23 08/09/23 History release venlafaxine 75 mg tablet 75 mg PO DAILY 06/20/23 08/09/23 History nitroglycerin 0.4 mg sublingual 0.4 mg sublingual Q5MINP PRN Chest 08/09/23 08/09/23 History tablet Pain bumetanide 1 mg tablet 1 mg PO DAILY #30 tabs 08/13/23 Rx fluticasone fur. 100 mcg-umeclid 1 inh inhalation DAILY 30 days #1 08/13/23 Rx 62.5 mcg-vilant 25 mcg ea inhalat.powder (Trelegy Ellipta) ipratropium 0.5 mg-albuterol 3 mg 3 ml inhalation Q6HP PRN Shortness 08/13/23 Rx (2.5 mg base)/3 mL nebulization Of Breath #0 mL soln nystatin 100,000 unit/gram topical 1 applic topical QID #0 grams 08/13/23 Rx powder prednisone 20 mg tablet 40 mg (2 x 20 mg) PO DAILY 3 days 08/13/23 Rx #6 tabs New Prescriptions to Start Prescriptions: Allergies Allergy/AdvReac Type Severity Reaction Status Date / Time Penicillins Allergy Verified 08/09/23 06:26 Exam Data for Last 24 hours Vital signs and Labs for Last 24 Hours: Temp Pulse Resp BP Pulse Ox O2 Del Method O2 Flow Rate 98.0 F 82 28 H 129/74 96 BiPAP 3.5 09/04/23 16:22 09/04/23 18:30 09/04/23 16:22 09/04/23 18:30 09/04/23 18:30 09/04/23 18:30 09/04/23 17:45 Laboratory Results - last 24 hr 09/04/23 16:33: VBG pH 7.26 L, VBG pCO2 81.8 H, VBG pO2 37.7, VBG HCO3 35.8 H, VBG Total CO2 38.3 H, VBG O2 Saturation 72.7 H, VBG Base Excess 8.7 H, VBG Lactic Acid 1.6 09/04/23 17:35: WBC 7.0, RBC 4.29, Hgb 12.7, Hct 41.2, MCV 96.2, MCH 29.7, MCHC 30.9 L, RDW 14.3, Plt Count 162, MPV 8.1, Neut % (Auto) 69.6, Lymph % (Auto) 21.5, [place] % (Auto) 7.9, Eos % (Auto) 0.4, Baso % (Auto) 0.7, Neut # (Auto) 4.9, Lymph # (Auto) 1.5, [place] # (Auto) 0.6, Eos # (Auto) 0.0, Baso # (Auto) 0.1, D- Dimer 0.95 H, Sodium 138, Potassium 4.3, Chloride 92 L, Carbon Dioxide 38 H, Anion Gap 12.3, BUN 36 H, Creatinine 1.70 H, Estimated Creat Clear 34, Estimated GFR 30 L, Est GFR ( Amer) 36 L, Glucose 117 H, Calcium 8.9, Total Bilir ubin 0.5, AST 33, ALT 18, Alkaline Phosphatase 98, Troponin I 0.03, NT-Pro-B Natriuret Pep 60773 H, Total Protein 7.3 D, Albumin 3.8, Globulin 3.5 H, Albumin/Globulin Ratio 1.1 09/04/23 18:19: SARS-CoV-2 (PCR) Not detected, Influenza A Untype (PCR) Not detected, Influenza Type B (PCR) Not detected I & O for Last 24 hours: Intake & Output 09/01/23 09/02/23 09/03/23 09/04/23 23:59 23:59 23:59 23:59 Weight 158.757 kg Constitutional Constitutional: no acute distress, morbidly obese and chronically ill appearing *Routine HEENT Exam Head: Present normocephalic Eye: Present EOMI and PERRL ENT: Present mucous membranes moist *Routine Neck Exam Neck: Present supple and full ROM; Absent lymphadenopathy *Routine Respiratory Exam Respiratory: Present rhonchi, crackles, diminished air movement and normal respiratory effort *Routine Cardiovascular Exam Cardiovascular: Present Normal S1, Normal S2 and tachycardia *Routine Abdominal Exam Abdominal: Present soft and normoactive bowel sounds; Absent tenderness *Routine Rectal Exam Rectal:: deferred *Routine Genitalia Exam Genitalia:: deferred *Routine Extremities Exam Extremities: Present edema and full ROM *Routine Skin Exam Skin: Present intact; Absent rash *Routine Neurological Exam Neurological: Present alert, oriented X3, vision grossly intact and hearing grossly intact; Absent sensory deficit or motor deficit Routine Psychiatric Exam Psychiatric: Present normal affect, normal thought process, cooperative, good insight and good judgment Assessment and Plan *Assessment and plan (1) Acute on chronic heart failure with preserved ejection fraction (HFpEF): Status: Acute Category: Medical Code(s): I50.33 - Acute on chronic diastolic (congestive) heart failure (2) Acute on chronic respiratory failure with hypoxia and hypercapnia: Status: Acute Category: Medical Code(s): J96.21 - Acute and chronic respiratory failure with hypoxia; J96.22 - Acute and chronic respiratory failure with hypercapnia (3) Obesity hypoventilation syndrome: Status: Acute Category: Medical Code(s): E66.2 - Morbid (severe) obesity with alveolar hypoventilation (4) BMI 50.0-59.9, adult: Status: Acute Category: Medical Code(s): Z68.43 - Body mass index [BMI] 50.0-59.9, adult (5) CKD (chronic kidney disease) stage 4, GFR 15-29 ml/min: Status: Acute Category: Medical Code(s): N18.4 - Chronic kidney disease, stage 4 (severe) (6) Tobacco dependence: Status: Acute Category: Medical Code(s): F17.200 - Nicotine dependence, unspecified, uncomplicated (7) Mood disorder: Status: Acute Category: Medical Code(s): F39 - Unspecified mood [affective] disorder Plan Patient is a 63-year-old female with chronic history of tobacco dependence, obstructive sleep apnea/BMI 52/OHS/COPD overlap on 2 L of oxygen at home who presents with shortness of air with a chronic history of heart failure with preserved ejection fraction with most recent echo EF 60%. She has chronic kidney disease stage IV with a baseline creatinine 1.6 and identified history of medical noncompliance. Problems addressed as follows: Acute on chronic HFpEF (class C/NYHA IV) Telemetry monitoring Accurate I's and O's Sodium and fluid restriction Routine weights IV loop diuretic therapy Drug therapy requiring intensive monitoring for toxicity Routine electrolytes and creatinine Beta-christofer therapy Aldosterone antagonist therapy Avoiding SGLT2 inhibitor therapy with CKD 4 Avoiding ARNI therapy with CKD 4 Echo (06/20/2023): EF 55% Acute on chronic hypoxic and hypercapnic respiratory failure Tobacco dependence BMI 52/ZAKI/OHS/COPD overlap Home oxygen requirement 2 L via nasal cannula Pulse oximetry monitoring Oxygen therapy to maintain appropriate oxygen saturations NIPPV therapy ED VBG with pCO2 82 ED chest x-ray with no acute infiltrates Marguerite/Young inhalation therapy ICS therapy Tobacco cessation education NRT Chronic kidney disease stage IV Baseline creatinine 1.6 Trending electrolytes and creatinine Loop diuretic therapy noted Avoiding NSAIDs Mood disorder Routine nursing interaction SSRI therapy Seizure disorder Seizure precautions Keppra therapy VTE prophylaxis: Heparin CODE STATUS: Full code POA/HCS: Harsh- The length of stay for this patient will be 2 midnights or greater due to above diagnoses.
--- NOTE | 2023-09-04 20:36 | PC.NURSE ---
Report called to RIOS Waddell
--- NOTE | 2023-09-04 20:42 | PC.NURSE ---
pt to floor via stretcher at this time
--- OUTSIDE RECORDS SUMMARY | 2023-09-04 20:48 | XMS_ITS | Encounter Summary ---
Author Name Unknown Organization [facility] Address [facility] [place] [address] Encounter Details Date Type Department Care Team Description 2023-07-22 Telephone [facility] [address] [place] [address] Stacy Crawford Medication Reconciliation was successfully completed by the [facility] Care Team. ASSESSMENT No Information TREATMENT PLAN No Information
--- OUTSIDE RECORDS SUMMARY | 2023-09-04 20:48 | XMS_ITS | Encounter Summary ---
Author Name Unknown Organization [facility] Address [facility] [place] [address] Encounter Details Date Type Department Care Team Description 2023-08-23 Telephone [facility] [place] [address] Salvatore Cook The [facility] care team was unable to complete a Medication Reconciliation with the patient following discharge. ASSESSMENT No Information TREATMENT PLAN No Information
[2023-09-04 21:48] LABS: Troponin I 0.03 ng/ml (0.00-0.034)
[2023-09-04] MEDS: BISOPROLOL 5MG TABLET 5 MG PO (22:10)
[2023-09-04] MEDS: SPIRONOLACTONE 25MG TABLET 25 MG PO (22:10)
[2023-09-04] MEDS: DOCUSATE SODIUM 100 MG CAPSULE PO (22:11)
[2023-09-04] MEDS: BUMETANIDE 1MG/4ML VIAL 2 MG IV (22:11)
[2023-09-04] MEDS: PANTOPRAZOLE 40MG TABLET 40 MG PO (22:11)
[2023-09-04] MEDS: HEPARIN SODIUM 5,000 UNIT/ML VIAL 5000 UNIT SQ (22:11)
[2023-09-04] MEDS: IPRATROPIUM/ALBUTEROL 3 ML NEB IH (23:12)
[2023-09-05] VITALS (18 sets, daily range): BP systolic 100–143; BP diastolic 57–84; PULSE 52–82; RESP 13–30; TEMP 36.7–37.6; O2SAT 90–98; BMI 51.8
[2023-09-05 00:51] LABS: Troponin I 0.03 ng/ml (0.00-0.034)
[2023-09-05] MEDS: HEPARIN SODIUM 5,000 UNIT/ML VIAL 5000 UNIT SQ ×3 (05:19→21:07)
[2023-09-05] MEDS: IPRATROPIUM/ALBUTEROL 3 ML NEB IH ×3 (05:43→18:47)
[2023-09-05] MEDS: BUDESONIDE 0.5MG/2ML NEB 0.5 MG IH ×2 (05:43→18:47)
[2023-09-05 05:56] LABS: Basophils % 0.1 % (0.1-2.0); Hematocrit 35.5 % (37.0-47.0); Lymphocytes # 0.7 K/mm3 (0.7-4.5); Lymphocytes % 17.8 % (10-50); Mean Corpuscular HGB Conc 31.7 g/dL (31.8-35.4); Mean Corpuscular Hemoglobin 30.2 pg (27.0-31.2); Mean Corpuscular Volume 95.2 fl (81-99); Monocytes # 0.1 K/mm3 (0.1-1.0); Monocytes % 2.3 % (1.7-9.3); Neutrophils # 3.2 K/mm3 (1.8-7.8); Neutrophils % 79.7 % (37.0-80.0); Platelet Count 137 K/mm3 (142-424); Red Blood Count 3.73 M/mm3 (4.20-5.40); Red Cell Distribution Width 14.3 % (11.5-17.5)
--- NOTE | 2023-09-05 06:00 | CA_ITS ---
APPROVED REPORT EXAM: Comprehensive 2D, Doppler, and color-flow Echocardiogram River Tester: Sophie Box RDCS Ht: 5 ft 9 in Wt: 350lbs BSA: 2.62 BP: 129/74 mmHg Indications: CHF,ZAKI,COPD M-Mode Dimensions RVDd 2.85 cm (0.9-2.6) LA Diam 3.07 cm (1.9-4.0) LVDd 5.25 cm (3.5-5.7) LVDs 3.85 cm (3.5-5.7) IVSd 0.76 cm (0.6-1.1) PWd 0.84 cm (0.6-1.1) EF (Teich) 51.70% FS 26.70% EDV (Teich) 132.40 mL ESV (Teich) 63.90 mL LV Diastology E Decel Time 263 (160-240 msec) E/A Ratio 0.7 Mitral Valve MV E Max Dale. 62.0 (40-130 cm/s) MV A Velocity 88.0 (40-130 cm/s) E/A Ratio 0.71 MV PHT 77.0 ms Tricuspid Valve TR P. Velocity 323.00 cm/s RAP Estimate 10.00 mmHg RVSP 51.60 mmHg Left Ventricle The left ventricle is normal size. The left ventricular systolic function is normal. The left ventricular ejection fraction is within the normal range. Proximal septal thickening is noted. There is normal LV segmental wall motion. Transmitral Doppler flow pattern suggests impaired LV relaxation. LVEF is 55%. Right Ventricle Right ventricle is moderately dilated. Right ventricle is moderately hypokinetic. Atria The left atrium size is normal. Right atrium is mildly dilated. There is no Doppler evidence of interatrial shunt. Aortic Valve The aortic valve is mildly thickened. There is no aortic valvular stenosis. No aortic regurgitation is present. Mitral Valve The mitral valve is normal in structure. No evidence of mitral valve stenosis. Trace mitral valve regurgitation. Tricuspid Valve The tricuspid valve leaflets are thin and pliable. Mild tricuspid regurgitation. RVSP is 40-45 mmHg. Pulmonic Valve The pulmonary valve is normal in structure. Trace pulmonic regurgitation. Great Vessels The aortic root is normal in size. The ascending aorta is normal in size. IVC is normal in size and collapses >50% with inspiration. Pericardium There is no pericardial effusion. Other Information Study Quality: Technically Difficult Conclusion Technically difficult study due to poor accoustic windows. Normal LV systolic function. Moderate RV dilation with moderate reduction in RV function. Mild RA dilation. Mild TR. Elevated RVSP 40-45 mmHg. Electronically signed by : Santa Ramos MD 09/08/2023 20:50:35
[2023-09-05 06:05] LABS: Hemoglobin 11.3 g/dL (12.2-16.2)
[2023-09-05 06:08] LABS: Blood Urea Nitrogen 32 mg/dl (7-17); Calcium 8.7 mg/dl (8.4-10.2); Chloride 94 mmol/L (98-107); Creatinine Clearance Estimated 33 mL/min (50-200); Estimated Glomerular Filt Rate 30 ml/min (>60); GFR (African American) 36 ML/MIN (>60); Glucose 128 mg/dl (74-100); Magnesium 1.8 mg/dl (1.6-2.3); Potassium 4.3 mmoL/L (3.5-5.1); Sodium 138 mmol/L (136-145)
[2023-09-05 06:16] LABS: Anion Gap 7.3 mEq/L (5-15); Carbon Dioxide 41 mmol/L (22.0-30.0)
[2023-09-05 06:21] LABS: Procalcitonin 0.134 ng/mL (0.0-2.0)
--- NOTE | 2023-09-05 08:26 | P.PN_ITS ---
Subjective *Date: 09/05/23 *Time: 18:47 Interval history: Alert and oriented x 2 this morning. BiPAP while asleep, room air while awake. Showing some improvement today. Tolerating p.o. intake. Complaining of pain in her legs with swelling. Afebrile. No nausea or vomiting. No chest pain. Medical Exam Vital signs and Labs for Last 24 Hours: Vital Signs Temp Pulse Pulse Resp BP BP Pulse Ox 09/05/23 06:00 55 L 13 106/62 L 97 09/05/23 05:46 53 L 09/05/23 05:46 52 L 09/05/23 05:46 96 09/05/23 05:46 09/05/23 05:00 56 L 131/66 95 09/05/23 04:00 98.1 F 09/05/23 04:00 55 L 20 98 09/05/23 04:00 56 L 09/05/23 04:00 82 15 124/83 96 09/05/23 01:44 09/05/23 00:51 60 09/05/23 00:51 59 L 09/05/23 00:00 99.6 F 09/05/23 00:00 60 09/05/23 00:00 59 L 143/84 H 97 09/04/23 23:00 67 131/87 99 09/04/23 22:00 67 120/75 99 09/04/23 21:12 78 09/04/23 20:55 09/04/23 20:50 99.9 F H 09/04/23 20:40 97.8 F 83 16 146/82 H 09/04/23 20:00 20 97 09/04/23 18:30 82 129/74 96 09/04/23 18:08 09/04/23 18:00 75 124/59 L 98 09/04/23 17:45 87 120/65 94 L 09/04/23 17:30 88 138/74 94 L 09/04/23 17:15 86 143/74 H 94 L 09/04/23 16:30 87 140/77 93 L 09/04/23 16:22 98.0 F 70 28 H 140/77 98 O2 Del Method O2 Flow Rate FiO2 09/05/23 06:00 BiPAP 35 09/05/23 05:46 09/05/23 05:46 09/05/23 05:46 BiPAP 35 09/05/23 05:46 35 09/05/23 05:00 BiPAP 35 09/05/23 04:00 09/05/23 04:00 BiPAP 35 09/05/23 04:00 09/05/23 04:00 BiPAP 35 09/05/23 01:44 35 09/05/23 00:51 09/05/23 00:51 09/05/23 00:00 09/05/23 00:00 09/05/23 00:00 BiPAP 09/04/23 23:00 BiPAP 09/04/23 22:00 BiPAP 09/04/23 21:12 09/04/23 20:55 35 09/04/23 20:50 09/04/23 20:40 Nasal Cannula 2 09/04/23 20:00 BiPAP 09/04/23 18:30 BiPAP 09/04/23 18:08 35 09/04/23 18:00 BiPAP 09/04/23 17:45 Nasal Cannula 3.5 09/04/23 17:30 Nasal Cannula 3.5 09/04/23 17:15 Nasal Cannula 3.5 09/04/23 16:30 Nasal Cannula 3.5 09/04/23 16:22 Room Air Intake and Output 09/04/23 09/05/23 09/05/23 23:59 07:59 15:59 Output Total 250 / 750 700 / 700 Balance -250 / -750 -700 / -700 Output: Output, Urine Amount (Catheter) 250 / 750 700 / 700 Pérez 250 / 750 700 / 700 Other: Weight 158.757 kg 158.757 kg Patient Weight 09/05/23 23:59 Weight 158.757 kg Laboratory Results - last 24 hr 09/04/23 16:33: VBG pH 7.26 L, VBG pCO2 81.8 H, VBG pO2 37.7, VBG HCO3 35.8 H, VBG Total CO2 38.3 H, VBG O2 Saturation 72.7 H, VBG Base Excess 8.7 H, VBG Lactic Acid 1.6 09/04/23 17:35: WBC 7.0, RBC 4.29, Hgb 12.7, Hct 41.2, MCV 96.2, MCH 29.7, MCHC 30.9 L, RDW 14.3, Plt Count 162, MPV 8.1, Neut % (Auto) 69.6, Lymph % (Auto) 21.5, [place] % (Auto) 7.9, Eos % (Auto) 0.4, Baso % (Auto) 0.7, Neut # (Auto) 4.9, Lymph # (Auto) 1.5, [place] # (Auto) 0.6, Eos # (Auto) 0.0, Baso # (Auto) 0.1, D- Dimer 0.95 H, Sodium 138, Potassium 4.3, Chloride 92 L, Carbon Dioxide 38 H, Anion Gap 12.3, BUN 36 H, Creatinine 1.70 H, Estimated Creat Clear 34, Estimated GFR 30 L, Est GFR ( Amer) 36 L, Glucose 117 H, Calcium 8.9, Total Bilirubin 0.5, AST 33, ALT 18, Alkaline Phosphatase 98, Troponin I 0.03, NT-Pro- B Natriuret Pep 61772 H, Total Protein 7.3 D, Albumin 3.8, Globulin 3.5 H, Albumin/Globulin Ratio 1.1 09/04/23 18:19: SARS-CoV-2 (PCR) Not detected, Influenza A Untype (PCR) Not detected, Influenza Type B (PCR) Not detected 09/04/23 21:03: Troponin I 0.03 09/04/23 23:59: Troponin I 0.03 09/05/23 05:08: WBC 4.0 L D, RBC 3.73 L, Hgb 11.3 L D, Hct 35.5 L, MCV 95.2, MCH 30.2, MCHC 31.7 L, RDW 14.3, Plt Count 137 L, MPV 9.0, Neut % (Auto) 79.7, Lymph % (Auto) 17.8, [place] % (Auto) 2.3, Eos % (Auto) 0.0 L, Baso % (Auto) 0.1, Neut # (Auto) 3.2, Lymph # (Auto) 0.7, [place] # (Auto) 0.1, Eos # (Auto) 0.0, Baso # (Auto) 0.0, Sodium 138, Potassium 4.3, Chloride 94 L, Carbon Dioxide 41 H*, Anion Gap 7.3, BUN 32 H, Creatinine 1.70 H, Estimated Creat Clear 33, Estimated GFR 30 L, Est GFR ( Amer) 36 L, Glucose 128 H, Calcium 8.7, Magnesium 1.8, Procalcitonin 0.134 I & O for Labs for Last 24 Hours: Intake & Output 09/02/23 09/03/23 09/04/23 09/05/23 23:59 23:59 23:59 23:59 Output Total 250 / 750 700 / 700 Balance -250 / -750 -700 / -700 Weight 158.757 kg 158.757 kg Constitutional: Present no acute distress, morbidly obese, chronically ill appearing and cooperative Head: Present atraumatic and normocephalic ENT: Present normal exam Neck: Present normal inspection Respiratory: Present accessory muscle use, prolonged expiratory phase and crackles (bases); Absent rhonchi or wheezes Cardiac: Present Reg Rate and Rhythm GI: Present soft and normal bowel sounds; Absent distention or tenderness Comment:: Pérez in place Extremities: Present normal inspection, full ROM and edema (2+ in BLE to thighs) Skin: Present intact; Absent erythema Comment:: dry, scale on BLE Neuro: Present Grossly Intact, alert, awake and moves all extremities Comment:: Oriented to self and place Assessment and Plan *Assessment and plan (1) Acute on chronic heart failure with preserved ejection fraction (HFpEF): Status: Acute Category: Medical Code(s): I50.33 - Acute on chronic diastolic (congestive) heart failure (2) Acute on chronic respiratory failure with hypoxia and hypercapnia: Status: Acute Category: Medical Code(s): J96.21 - Acute and chronic respiratory failure with hypoxia; J96.22 - Acute and chronic respiratory failure with hypercapnia (3) Obesity hypoventilation syndrome: Status: Acute Category: Medical Code(s): E66.2 - Morbid (severe) obesity with alveolar hypoventilation (4) BMI 50.0-59.9, adult: Status: Acute Category: Medical Code(s): Z68.43 - Body mass index [BMI] 50.0-59.9, adult (5) CKD (chronic kidney disease) stage 4, GFR 15-29 ml/min: Status: Acute Category: Medical Code(s): N18.4 - Chronic kidney disease, stage 4 (severe) (6) Tobacco dependence: Status: Acute Category: Medical Code(s): F17.200 - Nicotine dependence, unspecified, uncomplicated (7) Mood disorder: Status: Acute Category: Medical Code(s): F39 - Unspecified mood [affective] disorder Plan Patient is a 63-year-old female with chronic history of tobacco dependence, obstructive sleep apnea/BMI 52/OHS/COPD overlap on 2 L of oxygen at home who presents with shortness of air with a chronic history of heart failure with preserved ejection fraction with most recent echo EF 60%. She has chronic kidney disease stage IV with a baseline creatinine 1.6 and identified history of medical noncompliance. Showing some improvement today. Tolerating BiPAP while asleep. Improved mentation, back to baseline by morning. Therapy evaluating and working with patient. Problems addressed as follows: Acute on chronic HFpEF (class C/NYHA IV) Telemetry monitoring Accurate I's and O's Diuresing well, at least 1 L negative since admission. Potassium 4.3, magnesium 1.8. Repeat levels ordered for the morning. IV loop diuretic therapy Drug therapy requiring intensive monitoring for toxicity Beta-christofer therapy Aldosterone antagonist therapy Avoiding SGLT2 inhibitor therapy with CKD 4 Avoiding ARNI therapy with CKD 4 Echo (06/20/2023): EF 55% Acute on chronic hypoxic and hypercapnic respiratory failure Tobacco dependence BMI 52/ZAKI/OHS/COPD overlap Home oxygen requirement 2 L via nasal cannula, continue as needed, goal sats greater 90%. Weaned to room air if able BiPAP while asleep. Patient states she has BiPAP at home, was not aware of her BiPAP. States she did not wear after discharge from rehab. Repeat VBG in the morning to monitor for improvement in tolerance of BiPAP. Marguerite/Young inhalation therapy ICS therapy Tobacco cessation education; NRT Chronic kidney disease stage IV Baseline creatinine 1.6, 0.7 on morning labs, BUN 32. Repeat CBC, CMP, magnesium ordered for the morning Loop diuretic therapy noted Avoiding NSAIDs Mood disorder Routine nursing interaction SSRI therapy Seizure disorder Seizure precautions, Keppra per home regimen with 500 mg twice daily VTE prophylaxis: Heparin CODE STATUS: Full code POA/HCS: Harsh- The length of stay for this patient will be 2 midnights or greater due to above diagnoses.
[2023-09-05] MEDS: DOCUSATE SODIUM 100 MG CAPSULE PO (08:41)
[2023-09-05] MEDS: SPIRONOLACTONE 25MG TABLET 25 MG PO (08:41)
[2023-09-05] MEDS: BISOPROLOL 5MG TABLET 5 MG PO (08:41)
[2023-09-05] MEDS: PANTOPRAZOLE 40MG TABLET 40 MG PO (08:41)
[2023-09-05] MEDS: BUMETANIDE 1MG/4ML VIAL 2 MG IV ×2 (08:42→16:39)
--- NOTE | 2023-09-05 09:54 | HMH.PHAINT1 ---
Pharmacy Intervention Comments: MEDICATION RECONCILIATION COMPLETED ON PATIENT USING EXTERNAL FILL HISTORY FROM PHARMACY AND DISCHARGE SUMMARY FROM PREVIOUS ADMISSION. -MILLICENT PONCE, AYLEEND
--- NOTE | 2023-09-05 10:04 | HMH.PTEV ---
Physical Therapy Evaluation Rehab PT IP Evaluation Start: 09/05/23 08:00 Freq: ONCE Status: Active Protocol: Document 09/05/23 09:59 ASHLEY (Rec: 09/05/23 10:04 ASHLEY [email or web address]) Subjective/History History History Per H&P: This is a 63-year-old female that presents to [facility] emergency department with concerns of shortness of air over several days. She describes a recent hospitalization at [facility] with discharge from the hospital a day prior to her ED presentation. Her past medical history is significant for BMI 52 with OHS and COPD overlap with significant tobacco use history. She also has chronic HFpEF with class C and NYHA IV on presentation. She denied associated retrosternal chest pain, palpitations or confusion. In the ED she describes a nonproductive cough with no associated fever , chills or hemoptysis. She denied nausea, vomiting or diarrhea. She reports no recent seizures and describes a history of noncompliance with NIPPV therapy. Subjective Subjective PLOF per pt report: Lives in a single story home with no JANNY with . IND with bed mobility but required assistance from for transfers and ambulation. Pt used w/c and RW for mobility. New diagnosis of cancer in past 12 No months? Rehab PT IP Eval Objective Appearance Patient Behavior Appropriate,Cooperative Patient Orientation Person,Birthday,Situation Difficulty following instructions none Speech Pattern Clear Ambulation Patient Able to Ambulate Yes Ambulation Observation IP General Gait Pattern Observation Wide Based Gait Ambulation Distance (feet) 3 Ambulation Assistive Device Rolling Walker Ambulation Ability Contact Guard/Hand Hold Balance Ability to Arise Able, uses arms to help Sitting Balance Steady, safe Standing Balance Steady, wide stance Transfers Bed Transfer Ability Supervision/Stand by Sit to Stand Bed Transfer Ability Minimal x 2 (25% assist) Rehab PT IP prob,goals,plan Problems Date of Evaluation: 09/05/23 PT IP Problems Bed Mobility,Transfers,Gait, Balance,Self care,Safety Rehab Potential Rehab Potential Fair Equipment Needs Assistive Devices Rolling / Wheeled Walker, Wheelchair Plan PT Intervention Plan Bed Mobility,Transfers,Gait, Balance,Safety,Therapeutic Exercise Other Intervention Plan 1-2 times PT Plan Frequency Daily Duration LOS Discharge Goals Bed Transfer Ability Independent Sit to Stand Chair Transfer Ability Contact Guard/Hand Hold Ambulation Assistive Device Rolling Walker Ambulation Distance (feet) 10 Discharge Plan PT Discharge Plan Initial physical therapy evaluation performed. Patient presents below baseline at this time in functional mobility, transfers, gait, and strength. Pt would benefit from skilled PT while at [facility] to prevent further functional decline and maximize safety with mobility. Pt safe to d/c home when deemed medically necessary d/t current level of mobility, home set-up, and family support. PT recommending home health PT services to address deficits. Eval Complexity Eval Charge Codes 08598 - High Complexity PHYSICIAN CERTIFICATION: I certify the specified therapy services for Destiny Diaz are required, authorized, and reviewed every 30 days.
--- NOTE | 2023-09-05 10:11 | HMH.OTEV ---
OT Inpatient Evaluation Rehab OT IP Evaluation Start: 09/05/23 08:00 Freq: ONCE Status: Active Protocol: Document 09/05/23 09:55 NIELS (Rec: 09/05/23 10:10 NIELS [id number]) Rehab OT IP Assessment Subjective History Pt is a 63-year-old female that presents to [facility] emergency department with concerns of shortness of air over several days. She describes a recent hospitalization at [facility] with discharge from the hospital a day prior to her ED presentation. Her past medical history is significant for BMI 52 with OHS and COPD overlap with significant tobacco use history. She also has chronic HFpEF with class C and NYHA IV on presentation. She denied associated retrosternal chest pain, palpitations or confusion. In the ED she describes a nonproductive cough with no associated fever , chills or hemoptysis. She denied nausea, vomiting or diarrhea. She reports no recent seizures and describes a history of noncompliance with NIPPV therapy. PLOF: Pt stated they live at home with who is there 05/11 . Pt stated the house does not have steps to get inside the home or within the home. Pt states prior to being admitted to this facility did provide assistance for ADLs/ IADLs and transfers. Pt describes they use a walker to transfer along with assistance from . Pt states they are on 2L of O2 at home. Pt stated they have being frequently falling for the past month. Pt stated their typical day at home is being in bed or if it is nice they do go outside to sit. Pt stated is more active and takes care of the home. Pt states they do not have car at the moment, but public transportation takes them to grocery or doctor. Subjective I'm doing fine. Pt was supine in bed when therapy entered room. Pt was agreeable to participate in OT evaluation this morning. Pt was oriented x3. Pt agreed to get into chair. Pt went from supine to EOB with SBA. Pt was able to hold static sitting balance for ~3 minutes with SBA while therapy went to get sheets and new sallie. Therapy did provide assist to don socks, with pt holding sitting balance. Pt did state typically assists with lower body dressing. Pt was able to complete a sit to stand transfer with Min Assist with walker. Pt was able to take three steps with walker with CGA to get from EOB to chair. Pt was able to take two steps backwards with walker with CGA to sit back to chair. Therapy did provide education to make sure to feel back of chair with legs and reach back before sitting down. Pt was left in chair with call light and all other needs within reach. Objective Patient Orientation Person,Birthday,Situation Right Upper Extremity Gross ROM WFL Left Upper Extremity Gross ROM WFL Bed Mobility bed mobility-scooting,bed mobility - supine/sit Assist Level Supervision/Stand by Transfer Training Sit/Stand/Step Transfer Assist Level Minimal x 2 (25% assist) Lower Body Dressing Ability Maximum Assistance Rehab OT IP prob,goals,plan Problems Date of Evaluation: 09/05/23 OT IP Problems Bed Mobility,Transfers,Balance ,Self care,Safety Rehab Potential Rehab Potential Good Equipment Needs Assistive Devices Standard Walker,Rolling / Wheeled Walker Plan OT intervention Plan Bed Mobility,Transfers,Balance ,Self care,Safety,Therapeutic Exercise OT Plan Frequency Daily Duration LOS Discharge Goals Bed Mobility Ability Standby Assistance Sit to Stand Chair Transfer Ability Contact Guard/Hand Hold Chair Transfer Assistive Devices Standard Walker Lower Body Dressing Ability Maximum Assistance Discharge Plan OT Discharge Plan It is recommended at this time pt go home with home health services pending medical status and doctors orders. Pt will continue to be seen by OT LOS to continue to recieve skilled OT services while at this facility. Eval Complexity Eval Charge Codes 76900 - High Complexity PHYSICIAN CERTIFICATION: I certify the specified therapy services for Destiny Diaz are required, authorized, and reviewed every 30 days.
--- NOTE | 2023-09-05 11:43 | SW/DCPLANNER ---
Addendum entered by Oralia De RN 09/09/23 13:37: Faxed info to [facility] and confirmed resumption of care with Prema there. RIOS Sibley Addendum entered by Meghan Swain 09/06/23 13:56: Seth / [facility] stated that she can not accept this patient due to bed availability. I spoke w/ patient regarding other facilities and patient stated that she prefer to return home w/ her and home health services. Per nursing staff patient did improve w/ PT this afternoon. Patient is currently established w/ [facility] and information/order will be faxed at time of discharge. Patient may discharge later today or tomorrow. Patient and her agree w/ this plan. Addendum entered by Meghan Swain 09/06/23 10:53: Patient is weaker today than yesterday PT/OT is now recommending placement. I spoke w/ patient and she is agreeable to this plan. Patient prefers to return to [facility]. Seth mcleod/ [facility] stated that she does have bed available and is interested in referral. Patient information will be faxed to [facility] today. Per MD patient is medically stable for discharge. Original Note: PT/OT evaluated patient and recommended patient returning home w/ home health services. Patient's plan is to return home w/ and home health. Patient used [facility] in the past and prefers to use this agency again. Patient's stated that patient does NOT have a bi-pap machine at home. I will continue to follow up w/ patient and family regarding discharge plans. Discharge date is unknown at this time.
[2023-09-05] MEDS: levETIRAcetam 500 MG TABLET PO (21:07)
[2023-09-05] MEDS: ROPINIROLE 1MG TABLET 1 MG PO (21:07)
[2023-09-05] MEDS: TRAZODONE 50MG TABLET 100 MG PO (21:07)
[2023-09-05] MEDS: TOPIRAMATE 100MG TABLET 50 MG PO (21:07)
[2023-09-06] VITALS (17 sets, daily range): BP systolic 87–123; BP diastolic 31–69; PULSE 50–82; RESP 16–24; TEMP 36.6–37.2; O2SAT 89–99; BMI 40.8
[2023-09-06] MEDS: IPRATROPIUM/ALBUTEROL 3 ML NEB IH ×4 (00:15→18:39)
[2023-09-06] MEDS: HEPARIN SODIUM 5,000 UNIT/ML VIAL 5000 UNIT SQ ×3 (05:51→20:27)
[2023-09-06 06:06] LABS: Basophils % 0.3 % (0.1-2.0); Eosinophils % 0.3 % (0.1-12.0); Hematocrit 33.7 % (37.0-47.0); Hemoglobin 10.8 g/dL (12.2-16.2); Lymphocytes # 2.2 K/mm3 (0.7-4.5); Lymphocytes % 38.6 % (10-50); Mean Corpuscular Hemoglobin 30.4 pg (27.0-31.2); Mean Corpuscular Volume 94.9 fl (81-99); Mean Platelet Volume 9.1 fl (7.4-10.4); Monocytes # 0.4 K/mm3 (0.1-1.0); Monocytes % 7.4 % (1.7-9.3); Neutrophils % 53.4 % (37.0-80.0); Platelet Count 138 K/mm3 (142-424); Red Blood Count 3.55 M/mm3 (4.20-5.40); Red Cell Distribution Width 14.5 % (11.5-17.5); White Blood Count 5.7 K/mm3 (4.8-10.8)
[2023-09-06 06:13] LABS: Alanine Aminotransferase 13 U/L (12-78); Albumin Level 3.3 g/dl (3.5-5.0); Albumin/Globulin Ratio 1.2 (1.1-1.8); Alkaline Phosphatase 87 U/L (38-126); Aspartate Amino Transferase 22 U/L (14-36); Bilirubin,Total 0.4 mg/dl (0.2-1.3); Blood Urea Nitrogen 41 mg/dl (7-17); Calcium 8.7 mg/dl (8.4-10.2); Chloride 93 mmol/L (98-107); Creatinine Clearance Estimated 27 mL/min (50-200); Estimated Glomerular Filt Rate 24 ml/min (>60); GFR (African American) 29 ML/MIN (>60); Globulin 2.7 g/dL (1.3-3.2); Glucose 95 mg/dl (74-100); Magnesium 1.8 mg/dl (1.6-2.3); Potassium 3.8 mmoL/L (3.5-5.1); Sodium 138 mmol/L (136-145)
[2023-09-06 06:21] LABS: Anion Gap 9.8 mEq/L (5-15); Carbon Dioxide 39 mmol/L (22.0-30.0)
[2023-09-06] MEDS: BUDESONIDE 0.5MG/2ML NEB 0.5 MG IH ×2 (06:37→18:39)
[2023-09-06 07:49] LABS: VBG Base Excess 9.5 mmol/L (-2.4-2.3); VBG HCO3 33.2 mmol/L (23-30); VBG Oxygen Saturation 94.8 % (50-70); VBG PCO2 46.9 mmol/L (35-51); VBG PH 7.47 mmol/L (7.31-7.41); VBG PO2 68.2 mmol/L (28-40); VBG Total CO2 34.7 mmol/L (23-27)
[2023-09-06] MEDS: BISOPROLOL 5MG TABLET 5 MG PO (09:51)
[2023-09-06] MEDS: DOCUSATE SODIUM 100 MG CAPSULE PO (09:53)
[2023-09-06] MEDS: SPIRONOLACTONE 25MG TABLET 25 MG PO (09:54)
[2023-09-06] MEDS: PANTOPRAZOLE 40MG TABLET 40 MG PO (09:54)
[2023-09-06] MEDS: levETIRAcetam 500 MG TABLET PO ×2 (09:54→20:27)
[2023-09-06] MEDS: TOPIRAMATE 100MG TABLET 50 MG PO ×2 (09:55→20:27)
[2023-09-06] MEDS: ARIPiprazole 10MG TABLET 5 MG PO (09:56)
[2023-09-06] MEDS: BUMETANIDE 1MG/4ML VIAL 2 MG IV ×2 (09:57→16:31)
[2023-09-06] MEDS: VENLAFAXINE XR 75MG CAPSULE 75 MG PO (09:57)
--- NOTE | 2023-09-06 11:37 | PC.NURSE ---
Returned call to pts spouse Harsh who had questions regarding DC. He is asking if pt would be able to return home for therapy. Nurse explained difference between inpt therapy vs HH. Informed pt will like be discharged when PA obtained
--- NOTE | 2023-09-06 15:01 | P.PN_ITS ---
Subjective *Date: 09/06/23 *Time: 17:23 Interval history: Patient appears at baseline mentation this morning. Wore BiPAP for part of the evening. Back on baseline nasal cannula this morning of 1 to 2 L. Denies any nausea or vomiting. No chest pain. Working with therapy. Afebrile. Medical Exam Vital signs and Labs for Last 24 Hours: Vital Signs Temp Pulse Pulse Resp BP Pulse Ox O2 Del Method 09/06/23 14:49 Nasal Cannula 09/06/23 13:00 Nasal Cannula 09/06/23 12:00 50 L 09/06/23 12:00 97.9 F 56 L 24 123/69 96 Nasal Cannula 09/06/23 11:35 82 09/06/23 11:35 82 09/06/23 10:00 63 18 103/31 L 94 L Nasal Cannula 09/06/23 10:00 Room Air 09/06/23 09:00 63 18 113/57 L 94 L Nasal Cannula 09/06/23 09:00 Room Air 09/06/23 08:00 67 18 87/46 L 94 L Nasal Cannula 09/06/23 08:00 65 09/06/23 07:49 98.3 F 09/06/23 06:37 60 09/06/23 06:37 69 09/06/23 06:37 93 L Nasal Cannula 09/06/23 06:00 56 L 17 100/51 L 89 L Nasal Cannula 09/06/23 04:00 98.4 F 09/06/23 04:00 92 L Nasal Cannula 09/06/23 04:00 66 22 114/61 94 L Nasal Cannula 09/06/23 04:00 60 09/06/23 02:29 09/06/23 02:00 65 20 121/63 99 BiPAP 09/06/23 01:00 55 L 09/06/23 01:00 61 09/06/23 00:00 98.9 F 09/06/23 00:00 60 09/06/23 00:00 50 L 20 97/49 L 97 BiPAP 09/05/23 22:10 09/05/23 22:00 66 13 117/73 97 BiPAP 09/05/23 20:00 98.1 F 09/05/23 20:00 70 09/05/23 20:00 57 L 91 L Nasal Cannula 09/05/23 20:00 60 19 110/58 L 90 L Nasal Cannula 09/05/23 19:11 64 09/05/23 19:11 66 09/05/23 19:11 91 L Nasal Cannula 09/05/23 18:42 Room Air 09/05/23 18:00 67 26 H 100/57 L 90 L Nasal Cannula 09/05/23 17:00 Nasal Cannula 09/05/23 16:00 70 09/05/23 16:00 64 30 H 117/61 92 L Nasal Cannula 09/05/23 16:00 94 L Nasal Cannula O2 Flow Rate FiO2 09/06/23 14:49 09/06/23 13:00 09/06/23 12:00 09/06/23 12:00 2 09/06/23 11:35 09/06/23 11:35 09/06/23 10:00 2 09/06/23 10:00 09/06/23 09:00 2 09/06/23 09:00 09/06/23 08:00 2 09/06/23 08:00 09/06/23 07:49 09/06/23 06:37 09/06/23 06:37 09/06/23 06:37 1 09/06/23 06:00 1 09/06/23 04:00 09/06/23 04:00 1 09/06/23 04:00 1 09/06/23 04:00 09/06/23 02:29 35 09/06/23 02:00 35 09/06/23 01:00 09/06/23 01:00 09/06/23 00:00 09/06/23 00:00 09/06/23 00:00 35 09/05/23 22:10 35 09/05/23 22:00 35 09/05/23 20:00 09/05/23 20:00 09/05/23 20:00 1 09/05/23 20:00 1 09/05/23 19:11 09/05/23 19:11 09/05/23 19:11 1 09/05/23 18:42 09/05/23 18:00 1 09/05/23 17:00 3 09/05/23 16:00 09/05/23 16:00 1 09/05/23 16:00 3 Intake and Output 09/05/23 09/06/23 09/06/23 23:59 07:59 15:59 Intake Total 360 / 840 360 / 720 360 / 720 Output Total 500 / 1750 550 / 1750 1200 / 1750 Balance -140 / -910 -190 / -1030 -840 / -1030 Intake: Intake, Oral Amount 360 / 840 360 / 720 360 / 720 Output: Output, Urine Amount 500 / 500 0 / 1200 1200 / 1200 Output, Urine Amount (Catheter) 550 / 550 Pérez 550 / 550 Other: Number of Voids 0 Number of Unmeasured Voids 0 0 Weight 125.248 kg Patient Weight 09/06/23 23:59 Weight 125.248 kg Laboratory Results - last 24 hr 09/06/23 05:21: WBC 5.7 D, RBC 3.55 L, Hgb 10.8 L, Hct 33.7 L, MCV 94.9, MCH 30.4, MCHC 32.0, RDW 14.5, Plt Count 138 L, MPV 9.1, Neut % (Auto) 53.4, Lymph % (Auto) 38.6, [place] % (Auto) 7.4, Eos % (Auto) 0.3, Baso % (Auto) 0.3, Neut # (Auto) 3.0, Lymph # (Auto) 2.2, [place] # (Auto) 0.4, Eos # (Auto) 0.0, Baso # (Auto) 0.0, Sodium 138, Potassium 3.8, Chloride 93 L, Carbon Dioxide 39 H, Anion Gap 9.8, BUN 41 H D, Creatinine 2.10 H D, Estimated Creat Clear 27, Estimated GFR 24 L, Est GFR ( Amer) 29 L, Glucose 95, Calcium 8.7, Magnesium 1.8, Total Bilirubin 0.4, AST 22 D, ALT 13 D, Alkaline Phosphatase 87, Total Protein 6.0 L, Albumin 3.3 L D, Globulin 2.7, Albumin/Globulin Ratio 1.2 09/06/23 06:00: VBG pH 7.47 H, VBG pCO2 46.9, VBG pO2 68.2 H, VBG HCO3 33.2 H, VBG Total CO2 34.7 H, VBG O2 Saturation 94.8 H, VBG Base Excess 9.5 H, VBG Lactic Acid 2.0 I & O for Labs for Last 24 Hours: Intake & Output 09/03/23 09/04/23 09/05/23 09/06/23 23:59 23:59 23:59 23:59 Intake Total 840 / 840 720 / 720 Output Total 250 / 750 1200 / 1750 1750 / 1750 Balance -250 / -750 -360 / -910 -1030 / -1030 Weight 158.757 kg 158.76 kg 125.248 kg Constitutional: Present no acute distress, morbidly obese, chronically ill appearing and cooperative Head: Present atraumatic and normocephalic ENT: Present normal exam Neck: Present normal inspection Respiratory: Present accessory muscle use, prolonged expiratory phase and crackles (bases); Absent rhonchi or wheezes Cardiac: Present Reg Rate and Rhythm GI: Present soft and normal bowel sounds; Absent distention or tenderness Comment:: Pérez in place Extremities: Present normal inspection, full ROM and edema (1+ in BLE to thighs, however improved with wrinkling of lower leg) Skin: Present intact; Absent erythema Comment:: dry, scale on BLE Neuro: Present Grossly Intact, alert, awake and moves all extremities Comment:: Oriented to self and place Assessment and Plan *Assessment and plan (1) Acute on chronic heart failure with preserved ejection fraction (HFpEF): Status: Acute Category: Medical Code(s): I50.33 - Acute on chronic diastolic (congestive) heart failure (2) Acute on chronic respiratory failure with hypoxia and hypercapnia: Status: Acute Category: Medical Code(s): J96.21 - Acute and chronic respiratory failure with hypoxia; J96.22 - Acute and chronic respiratory failure with hypercapnia (3) Obesity hypoventilation syndrome: Status: Acute Category: Medical Code(s): E66.2 - Morbid (severe) obesity with alveolar hypoventilation (4) BMI 50.0-59.9, adult: Status: Acute Category: Medical Code(s): Z68.43 - Body mass index [BMI] 50.0-59.9, adult (5) CKD (chronic kidney disease) stage 4, GFR 15-29 ml/min: Status: Acute Category: Medical Code(s): N18.4 - Chronic kidney disease, stage 4 (severe) (6) Tobacco dependence: Status: Acute Category: Medical Code(s): F17.200 - Nicotine dependence, unspecified, uncomplicated (7) Mood disorder: Status: Acute Category: Medical Code(s): F39 - Unspecified mood [affective] disorder Plan Patient is a 63-year-old female with chronic history of tobacco dependence, obstructive sleep apnea/BMI 52/OHS/COPD overlap on 2 L of oxygen at home who presents with shortness of air with a chronic history of heart failure with preserved ejection fraction with most recent echo EF 60%. She has chronic kidney disease stage IV with a baseline creatinine 1.6 and identified history of medical noncompliance. Showing some improvement today. Tolerating BiPAP while asleep. Baseline mentation this morning. Morning blood gas showed normalization with improvement in her pCO2. Therapy working with patient daily. Continues to require inpatient management. Anticipate discharge in the next day or 2. Problems addressed as follows: Acute on chronic HFpEF (class C/NYHA IV) Responding well to diuretics.-1.5 liters since admission. Continue Bumex, give improvement and return back to baseline oxygenation, decrease to 1 mg daily IV Potassium 3.8, magnesium 1.8. Kidney function at baseline range still with BUN of 41, creatinine 2.1. Acceptable bump in creatinine as patient reaches d ry/euvolemic status. drug therapy requiring intensive monitoring for toxicity Beta-christoefr therapy Aldosterone antagonist therapy Avoiding SGLT2 inhibitor therapy with CKD 4 Avoiding ARNI therapy with CKD 4 Echo (06/20/2023): EF 55% Acute on chronic hypoxic and hypercapnic respiratory failure Tobacco dependence BMI 52/OHS/COPD overlap Home oxygen requirement 1-2 L via nasal cannula, continue as needed, goal sats greater 90%. Holding on BiPAP tonight. Will obtain overnight pulse oximetry. Will likely need BiPAP at discharge. Tolerated well while at rehab recently. Readmission likely secondary to not having BiPAP at home and recurrent hypercapnia at night due to her COPD and obesity. ABG in the morning Marguerite/Young inhalation therapy ICS therapy - Patient necessitating BiPAP due to hypercapnia related to her COPD. She does not have a working diagnosis of sleep apnea Tobacco cessation education; NRT Chronic kidney disease stage IV Creatinine 2.1, BUN 41. Had upper limit of patient's normal baseline range. Repeat CBC, CMP, magnesium ordered for the morning Mood disorder Routine nursing interaction SSRI therapy Seizure disorder Seizure precautions, Keppra per home regimen with 500 mg twice daily VTE prophylaxis: Heparin CODE STATUS: Full code POA/HCS: [place] The length of stay for this patient will be 2 midnights or greater due to above diagnoses.
--- NOTE | 2023-09-06 18:07 | PC.NURSE ---
Uneventful day. Pt rested comfortably on and off throughout the day. 02 has remained on at 2 liters per nc. She voided without difficulty after removal of dia. LBM today. No pain reported
[2023-09-06] MEDS: TRAZODONE 50MG TABLET 100 MG PO (20:26)
[2023-09-06] MEDS: ROPINIROLE 1MG TABLET 1 MG PO (20:26)
[2023-09-07] VITALS (12 sets, daily range): BP systolic 107–123; BP diastolic 51–70; PULSE 56–70; RESP 17–20; TEMP 36.2–36.9; O2SAT 93–100; BMI 40.9
[2023-09-07] MEDS: IPRATROPIUM/ALBUTEROL 3 ML NEB IH ×4 (00:43→18:32)
--- NOTE | 2023-09-07 02:13 | PC.NURSE ---
RECEIVED REPORT FROM Azul SIMON RN AT 0130.
--- NOTE | 2023-09-07 04:20 | PC.NURSE ---
SLEPT AT SHORT INTERVALS. NO COMPLAINTS OF PAIN OR SOA. 02 AT 2LNC, SATS 92-95%. PREVIOUS NURSE REPORTS PATIENT DESATS ON ROOM AIR, MID 80s. CONT. PULSEOX AT THIS TIME. SINUS RHYTHM ON TELEMETRY. 2 + EDEMA BLEs. VITAL SIGNS STABLE.
[2023-09-07] MEDS: HEPARIN SODIUM 5,000 UNIT/ML VIAL 5000 UNIT SQ (04:50)
[2023-09-07] MEDS: BUDESONIDE 0.5MG/2ML NEB 0.5 MG IH ×2 (06:44→18:32)
[2023-09-07 06:59] LABS: ABG Base Excess 10.9 mmol/L (-2.4-2.3); ABG HCO3 35.4 mmhg (22.0-26.0); ABG Oxygen Saturation 95 % (90-100); ABG PH 7.42 mmol/L (7.35-7.45); ABG PO2 75.6 mmhg (80-100); ABG TCO2 37.1 mmhg (23-27)
[2023-09-07 07:00] LABS: Allen's Test Acceptable; Oxygen 2L NC %; Source Right Radial
[2023-09-07 07:03] LABS: ABG PCO2 56.1 mmhg (35.0-45.0)
[2023-09-07 07:52] LABS: Alanine Aminotransferase 16 U/L (12-78); Albumin Level 3.5 g/dl (3.5-5.0); Albumin/Globulin Ratio 1.2 (1.1-1.8); Alkaline Phosphatase 95 U/L (38-126); Aspartate Amino Transferase 29 U/L (14-36); Bilirubin,Total 0.3 mg/dl (0.2-1.3); Blood Urea Nitrogen 43 mg/dl (7-17); Calcium 8.9 mg/dl (8.4-10.2); Chloride 94 mmol/L (98-107); Creatinine Clearance Estimated 28 mL/min (50-200); Estimated Glomerular Filt Rate 25 ml/min (>60); GFR (African American) 30 ML/MIN (>60); Glucose 94 mg/dl (74-100); Potassium 3.7 mmoL/L (3.5-5.1); Sodium 139 mmol/L (136-145); Total Protein,Serum 6.5 g/dl (6.3-8.2)
[2023-09-07 07:58] LABS: Anion Gap 10.7 mEq/L (5-15); Carbon Dioxide 38 mmol/L (22.0-30.0)
--- NOTE | 2023-09-07 08:03 | EXP.DC.SUM ---
General Admission date:: 09/04/23 Discharge date: 09/07/23 HPI HPI HPI: This is a 63-year-old female that presents to [facility] emergency department with concerns of shortness of air over several days. She describes a recent hospitalization at [facility] with discharge from the hospital a day prior to her ED presentation. Her past medical history is significant for BMI 52 with OHS and COPD overlap with significant tobacco use history. She also has chronic HFpEF with class C and NYHA IV on presentation. She denied associated retrosternal chest pain, palpitations or confusion. In the ED she describes a nonproductive cough with no associated fever, chills or hemoptysis. She denied nausea, vomiting or diarrhea. She reports no recent seizures and describes a history of noncompliance with NIPPV therapy. Hospital Course Hospital Course Hospital Course: Patient is a 63-year-old female with chronic history of tobacco dependence, obstructive sleep apnea/BMI 52/OHS/COPD overlap on 2 L of oxygen at home who presents with shortness of air with a chronic history of heart failure with preserved ejection fraction with most recent echo EF 60%. She has chronic kidney disease stage IV with a baseline creatinine 1.6 and identified history of medical noncompliance. Showing some improvement today. Tolerating BiPAP while asleep. Returned to baseline mentation by following morning. Therapy worked with her. Deemed appropriate to discharge home with home health. Attempted to qualify for BiPAP during admission. Morning ABG met criteria with pCO2 greater than 52. Unfortunate was unable to wear nocturnal pulse ox for more than 20 minutes. Will continue her baseline 2 L nasal cannula at this time. Working on outpatient eval for overnight pulse ox in conjunction with Melissa'leobardo. Stable to discharge home in care of her . Have expressed concern many times on previous hospitalizations to patient about her ability to safely be at home given her multiple medical complexities. Patient and both adamant that she be at home. High risk for readmission. Problems addressed as follows: Acute on chronic HFpEF (class C/NYHA IV) Initiated on aggressive diuresis. Responded well. Fluid negative several liters during admission. Significant improvement in her lower extremity edema with wrinkling of her legs. Creatinine stable at 2.0 with BUN of 43. Slight bump from her baseline but appropriately elevated given her diuresis and drying her out. Patient breathing better. Stable on 2 L nasal cannula oxygen. Needs repeat labs in 1 week. Continue home medications including beta-christofer therapy Aldosterone antagonist therapy Avoiding SGLT2 inhibitor therapy with CKD 4 Avoiding ARNI therapy with CKD 4 Echo (06/20/2023): EF 55% Acute on chronic hypoxic and hypercapnic respiratory failure Tobacco dependence BMI 52/OHS/COPD overlap Home oxygen requirement 2 L via nasal cannula, continue as needed, goal sats greater 90%. Would benefit from BiPAP at night at home. Will need overnight pulse ox at home. Met criteria with ABG this morning on day of discharge with pCO2 above 52. Continue nebulizer therapy. - Patient necessitating BiPAP due to hypercapnia related to her COPD. She does not have a working diagnosis of sleep apnea Tobacco cessation education; NRT Chronic kidney disease stage IV Patient's creatinine within the range of her normal. BUN 43, creatinine 2.0. Upper limit of her normal baseline stage IV CKD. Mood disorder Routine nursing interaction Continue home for repeat with Abilify milligrams daily, venlafaxine 75 daily, Topamax 50 mg twice daily. Seizure disorder Seizure precautions, Keppra per home regimen with 500 mg twice daily Total time spent on discharge 40 minutes in counseling, documentation, chart review, and direct care with patient. Exam Data for Last 24 hours Vital signs and Labs for Last 24 Hours: Temp Pulse Resp BP Pulse Ox O2 Del Method O2 Flow Rate 98.5 F 60 17 107/51 L 97 Nasal Cannula 2 09/07/23 04:00 09/07/23 06:40 09/07/23 04:00 09/07/23 04:00 09/07/23 06:40 09/07/23 07:40 09/07/23 06:40 FiO2 35 09/06/23 02:29 Laboratory Results - last 24 hr 09/06/23 06:00: VBG pH 7.47 H, VBG pCO2 46.9, VBG pO2 68.2 H, VBG HCO3 33.2 H, VBG Total CO2 34.7 H, VBG O2 Saturation 94.8 H, VBG Base Excess 9.5 H, VBG Lactic Acid 2.0 09/07/23 06:00: Specimen Source Right radial, O2 % 2l nc, ABG pH 7.42, ABG pCO2 56.1 H, ABG pO2 75.6 L, ABG HCO3 35.4 H, ABG Total CO2 37.1 H, ABG O2 Saturation 95, ABG Base Excess 10.9 H, Allan Test Acceptable 09/07/23 06:41: Sodium 139, Potassium 3.7, Chloride 94 L, Carbon Dioxide 38 H, Anion Gap 10.7, BUN 43 H, Creatinine 2.00 H, Estimated Creat Clear 28, Estimated GFR 25 L, Est GFR ( Amer) 30 L, Glucose 94, Calcium 8.9, Total Bilirubin 0.3, AST 29 D, ALT 16, Alkaline Phosphatase 95, Total Protein 6.5, Albumin 3.5, Globulin 3.0, Albumin/Globulin Ratio 1.2 I & O for Last 24 hours: Intake & Output 09/04/23 09/05/23 09/06/23 09/07/23 23:59 23:59 23:59 23:59 Intake Total 840 / 840 1080 / 1080 622 / 622 Output Total 250 / 750 1200 / 1750 2250 / 2250 Balance -250 / -750 -360 / -910 -1170 / -1170 621 / 621 Weight 158.757 kg 158.76 kg 125.248 kg 125.5 kg Constitutional Constitutional: no acute distress, morbidly obese and chronically ill appearing *Routine HEENT Exam Head: Present normocephalic Eye: Present EOMI and PERRL ENT: Present mucous membranes moist *Routine Neck Exam Neck: Present supple; Absent lymphadenopathy *Routine Respiratory Exam Respiratory: Present distant breath sounds, diminished air movement and normal respiratory effort; Absent rhonchi, wheezes or crackles *Routine Cardiovascular Exam Cardiovascular: Present RRR *Routine Abdominal Exam Abdominal: Present soft and normoactive bowel sounds; Absent tenderness *Routine Rectal Exam Patient deferred: visual exam *Routine Exam Patient deferred: external exam *Routine Extremities Exam Extremities: Present edema (Trace, significant wrinkling of skin); Absent cyanosis or clubbing *Routine Skin Exam Skin: Present dry and warm; Absent rash *Routine Neurological Exam Neurological: Present alert, oriented X3 and moving all extremities; Absent altered mental status Results Data Completed and Pending Labs on day of discharge: Labs from last 24 hours 09/07/23 09/07/23 09/06/23 06:41 06:00 06:00 Specimen Source Right radial O2 % 2l nc ABG pH 7.42 ABG pCO2 56.1 H ABG pO2 75.6 L ABG HCO3 35.4 H ABG Total CO2 37.1 H ABG O2 Saturation 95 ABG Base Excess 10.9 H Allan Test Acceptable VBG pH 7.47 H VBG pCO2 46.9 VBG pO2 68.2 H VBG HCO3 33.2 H VBG Total CO2 34.7 H VBG O2 Saturation 94.8 H VBG Base Excess 9.5 H VBG Lactic Acid 2.0 Sodium 139 Potassium 3.7 Chloride 94 L Carbon Dioxide 38 H Anion Gap 10.7 BUN 43 H Creatinine 2.00 H Estimated Creat Clear 28 Estimated GFR 25 L Est GFR ( Amer) 30 L Glucose 94 Calcium 8.9 Total Bilirubin 0.3 AST 29 D ALT 16 Alkaline Phosphatase 95 Total Protein 6.5 Albumin 3.5 Globulin 3.0 Albumin/Globulin Ratio 1.2 DS: Diagnosis Discharge Diagnosis (1) Acute on chronic heart failure with preserved ejection fraction (HFpEF): Status: Acute Code(s): I50.33 - Acute on chronic diastolic (congestive) heart failure (2) Acute on chronic respiratory failure with hypoxia and hypercapnia: Status: Acute Code(s): J96.21 - Acute and chronic respiratory failure with hypoxia; J96.22 - Acute and chronic respiratory failure with hypercapnia (3) Obesity hypoventilation syndrome: Status: Acute Code(s): E66.2 - Morbid (severe) obesity with alveolar hypoventilation (4) BMI 50.0-59.9, adult: Status: Acute Code(s): Z68.43 - Body mass index [BMI] 50.0-59.9, adult (5) CKD (chronic kidney disease) stage 4, GFR 15-29 ml/min: Status: Acute Code(s): N18.4 - Chronic kidney disease, stage 4 (severe) (6) Tobacco dependence: Status: Acute Code(s): F17.200 - Nicotine dependence, unspecified, uncomplicated (7) Mood disorder: Status: Acute Code(s): F39 - Unspecified mood [affective] disorder Meds Home Medications and Allergies Home Medications Medication Instructions Recorded Confirmed Type levetiracetam 500 mg tablet 500 mg PO BID 01/26/21 09/05/23 History magnesium oxide 400 mg (241.3 mg 400 mg PO DAILY 08/23/21 09/05/23 History magnesium) tablet multivitamin 1 each PO DAILY 08/23/21 09/05/23 History ropinirole 1 mg tablet 1 mg PO HS 08/23/21 09/05/23 History sumatriptan succinate 100 mg tablet 100 mg PO DAILYP PRN Migraine 08/23/21 09/05/23 History Headache topiramate 50 mg tablet 50 mg PO BID 08/23/21 09/05/23 History aripiprazole 5 mg tablet 5 mg PO DAILY 08/07/22 09/05/23 History trazodone 100 mg tablet 100 mg PO HS 08/07/22 09/05/23 History buspirone 10 mg tablet 20 mg PO DAILY 06/20/23 09/05/23 History cholecalciferol (vitamin D3) 125 125 mcg PO DAILY 06/20/23 09/05/23 History mcg (5,000 unit) capsule omeprazole 40 mg capsule,delayed 40 mg PO DAILY 06/20/23 09/05/23 History release venlafaxine 75 mg tablet 75 mg PO DAILY 06/20/23 09/05/23 History nitroglycerin 0.4 mg sublingual 0.4 mg sublingual Q5MINP PRN Chest 08/09/23 09/05/23 History tablet Pain bumetanide 1 mg tablet 1 mg PO DAILY #30 tabs 08/13/23 09/05/23 Rx fluticasone fur. 100 mcg-umeclid 1 inh inhalation DAILY 30 days #1 08/13/23 09/05/23 Rx 62.5 mcg-vilant 25 mcg ea inhalat.powder (Trelegy Ellipta) ipratropium 0.5 mg-albuterol 3 mg 3 ml inhalation Q6HP PRN Shortness 08/13/23 09/05/23 Rx (2.5 mg base)/3 mL nebulization Of Breath #0 mL soln bisoprolol fumarate 5 mg tablet 5 mg PO DAILY 30 days #30 tabs 09/07/23 Rx spironolactone 25 mg tablet 25 mg PO DAILY 30 days #30 tabs 09/07/23 Rx New Prescriptions to Start Prescriptions: bisoprolol fumarate Michael Luke spironolactone Michael Luke Allergies Allergy/AdvReac Type Severity Reaction Status Date / Time Penicillins Allergy Verified 08/09/23 06:26 Discharge Plan Disposition Patient Disposition: Home Health Service Condition: Undetermined Discharge Order Discharge Orders: Discharge Order (Routine); Ordered 09/07/23 Ordered By: Michael Luke Follow up Plan Follow up with: Zachariah Mercado MD [Primary Care Provider] - Enter time for follow up Prescriptions/Medication Reconciliation: New spironolactone 25 mg Tablet 25 mg PO DAILY 30 Days Qty: 30 0RF bisoprolol fumarate 5 mg Tablet 5 mg PO DAILY 30 Days Qty: 30 0RF Continued multivitamin 1 EACH tablet 1 each PO DAILY ropinirole 1 MG tablet 1 mg PO HS sumatriptan succinate 100 MG tablet 100 mg PO DAILYP PRN (Reason: Migraine Headache) magnesium oxide 400 MG tablet 400 mg PO DAILY topiramate 50 MG tablet 50 mg PO BID trazodone 100 mg tablet 100 mg PO HS aripiprazole 5 mg tablet 5 mg PO DAILY Patient Comments: TAKE ONE TABLET BY MOUTH EVERY DAY buspirone 10 mg tablet 20 mg PO DAILY cholecalciferol (vitamin D3) 125 mcg (5,000 unit) capsule 125 mcg PO DAILY Patient Comments: TAKE ONE CAPSULE BY MOUTH EVERY DAY omeprazole 40 mg Capsule,Delayed Release(Dr/Ec) 40 mg PO DAILY venlafaxine 75 mg tablet 75 mg PO DAILY Patient Comments: TAKE ONE TABLET BY MOUTH EVERY DAY nitroglycerin 0.4 mg tablet, sublingual 0.4 mg sublingual Q5MINP PRN (Reason: Chest Pain) Patient Comments: DISSOLVE 1 TABLET UNDER THE TONGUE EVERY 5 MINUTES NEEDED FOR CHEST PAIN. DO NOT EXCEED A TOTAL OF 3 DOSES IN 15 MINUTES. IF NO RELIEF AFTER 3 DOSES CALL 911/GO TO ER ipratropium-albuterol 0.5 mg-3 mg(2.5 mg base)/3 mL Solution For Nebulization 3 ml inhalation Q6HP PRN (Reason: Shortness Of Breath) Qty: 0 0RF Trelegy Ellipta 100-62.5-25 mcg Blister With Device 1 inh inhalation DAILY 30 Days Qty: 1 0RF bumetanide 1 mg tablet 1 mg PO DAILY Qty: 30 0RF levetiracetam 500 MG tablet 500 mg PO BID Discontinued verapamil 120 MG tablet 120 mg PO HS propranolol 20 MG tablet 20 mg PO 1700 potassium chloride 10 MEQ tablet extended release 10 meq PO BID carvedilol 12.5 mg tablet 12.5 mg PO BID amlodipine 5 mg tablet 5 mg PO DAILY prednisone 10 mg tablet 10 mg PO DIRECTED Other Ambulatory Orders: RT Overnight Pulse Oximetry (Routine) Timeframe: 2 Days Facility: [facility] - Location: Respiratory Therapy Ordered By: Michael Luke Problem Reconciliation Problems Reviewed?: Yes Patient Discharge Instructions ACTIVITY: Ambulate as tolerated DIET: continue same diet and advance to your usual diet Patient Instructions: Pneumonia-Adult, Seizure Disorder -- Adult, DI for Chronic Obstructive Pulmonary Disease, DI for Obesity -- Adult, DI for Shortness of Breath, DI for Respiratory Failure Providers Primary Care Provider: Zachariah Mercado Admit Provider: Michael Luke Attending Provider: Michael Luke
[2023-09-07 08:07] LABS: Magnesium 1.7 mg/dl (1.6-2.3)
[2023-09-07 08:11] LABS: Basophils % 0.4 % (0.1-2.0); Eosinophils % 0.4 % (0.1-12.0); Hematocrit 37.2 % (37.0-47.0); Hemoglobin 11.5 g/dL (12.2-16.2); Lymphocytes # 1.8 K/mm3 (0.7-4.5); Lymphocytes % 29.1 % (10-50); Mean Corpuscular HGB Conc 30.8 g/dL (31.8-35.4); Mean Corpuscular Hemoglobin 30.3 pg (27.0-31.2); Mean Corpuscular Volume 98.4 fl (81-99); Mean Platelet Volume 8.9 fl (7.4-10.4); Monocytes # 0.5 K/mm3 (0.1-1.0); Monocytes % 7.5 % (1.7-9.3); Neutrophils # 3.9 K/mm3 (1.8-7.8); Neutrophils % 62.6 % (37.0-80.0); Platelet Count 152 K/mm3 (142-424); Red Blood Count 3.78 M/mm3 (4.20-5.40); Red Cell Distribution Width 14.5 % (11.5-17.5); White Blood Count 6.2 K/mm3 (4.8-10.8)
[2023-09-07] MEDS: ARIPiprazole 10MG TABLET 5 MG PO (08:39)
[2023-09-07] MEDS: BUMETANIDE 1MG/4ML VIAL 1 MG IV (08:40)
[2023-09-07] MEDS: levETIRAcetam 500 MG TABLET PO (08:40)
[2023-09-07] MEDS: DOCUSATE SODIUM 100 MG CAPSULE PO (08:40)
[2023-09-07] MEDS: BUSPIRONE HCL 10 MG TABLET PO (08:40)
[2023-09-07] MEDS: BISOPROLOL 5MG TABLET 5 MG PO (08:40)
[2023-09-07] MEDS: PANTOPRAZOLE 40MG TABLET 40 MG PO (08:41)
[2023-09-07] MEDS: TOPIRAMATE 100MG TABLET 50 MG PO (08:41)
[2023-09-07] MEDS: SPIRONOLACTONE 25MG TABLET 25 MG PO (08:41)
[2023-09-07] MEDS: VENLAFAXINE XR 75MG CAPSULE 75 MG PO (08:41)
--- NOTE | 2023-09-07 16:51 | PC.NURSE ---
PT IS BEING DISCHARGED. STAFF WAS UNABLE TO GET PT IN A PRIVATE VEHICLE. NOTIFIED CHARGE NURSE FOR EXTRA STAFF TO ASSIST WITH GETTING PT IN THE VEHICLE THE [employer]BER HANDED THIS NURSE HIS PHONE AND STATED HIS BOSS WANTED TO TALK TO US. ACCORDING TO THE BOSS OVER THE COMPANY STATED THAT THEY WERE UNABLE TO TAKE PT HOME B/C SHE WAS GOING TO NEED A SPECIAL VEHICLE FOR TRANSPORT AND PT WOULD NEED TO CALL THE NUMBER ON HER MEDICARE CARD AND ASK FOR A VEHICLE WITH WHEELCHAIR ACCESS. PT WAS UNABLE TO GET IN TOUCH WITH ANYBODY FROM THE INSURANCE COMPANY. AMBULANCE NOTIFIED AND WAS INFORMED STAFF WAS UNABLE TO GET PT IN THE VEHICLE AND THE STATED TO FILL OUT THE FORM AND THEY WOULD ARRANGE TRANSPORT.
--- NOTE | 2023-09-10 14:22 | CARE MANAGER ---
Contacted patient related to hospital discharge. She states she is doing just fine . She has her medication and has not made a follow up appointment. RIOS Sibley
== END 2023-09-07 20:42 | disposition home health service (06) | DRG 291 ==
LOC: ER 16:56 → 2ND 20:01
PROVIDERS: Family Medicine; Admitting Provider Internal Medicine Adolescent Medicine; Emergency Provider Emergency Medicine; PCP Internal Medicine Adolescent Medicine; Visit Provider Internal Medicine Adolescent Medicine
DX: I13.0 Hypertensive heart and chronic kidney disease with heart failure and stage 1 through stage 4 chronic kidney disease, or unspecified chronic kidney disease (principal); I50.33 Acute on chronic diastolic (congestive) heart failure; J96.22 Acute and chronic respiratory failure with hypercapnia; J96.21 Acute and chronic respiratory failure with hypoxia; N18.4 Chronic kidney disease, stage 4 (severe); E66.2 Morbid (severe) obesity with alveolar hypoventilation; Z68.43 Body mass index [BMI] 50.0-59.9, adult; Z99.81 Dependence on supplemental oxygen; G40.909 Epilepsy, unspecified, not intractable, without status epilepticus; K21.9 Gastro-esophageal reflux disease without esophagitis; F17.210 Nicotine dependence, cigarettes, uncomplicated; G47.33 Obstructive sleep apnea (adult) (pediatric); F39 Unspecified mood [affective] disorder
CPT/HCPCS: 36415; 71045; 80048; 80053; 82803; 83735; 83880; 84145; 84484; 85025; 85378; 87636; 93005; 93306; 93971; 94640; 94660; 94761; 97110; 97163; 97167; 97530; 99291

== ENCOUNTER 2023-10-31 11:53 | Emergency (ER) | payer MEDICARE, MEDICAID, SELFPAY ==
[2023-10-31] VITALS (10 sets, daily range): BP systolic 113–167; BP diastolic 46–91; PULSE 69–88; RESP 18; TEMP 36.6–36.7; O2SAT 96–100; BMI 58.6
--- NOTE | 2023-10-31 11:56 | ED_ITS ---
Discharge Plan Disposition Patient Disposition: Home, Self-Care Prescriptions Prescriptions: New bumetanide 1 mg tablet 1 mg PO DAILY Qty: 30 0RF No Action multivitamin 1 EACH tablet 1 each PO DAILY ropinirole 1 MG tablet 1 mg PO HS sumatriptan succinate 100 MG tablet 100 mg PO DAILYP PRN (Reason: Migraine Headache) magnesium oxide 400 MG tablet 400 mg PO DAILY topiramate 50 MG tablet 50 mg PO BID trazodone 100 mg tablet 100 mg PO HS aripiprazole 5 mg tablet 5 mg PO DAILY Patient Comments: TAKE ONE TABLET BY MOUTH EVERY DAY buspirone 10 mg tablet 20 mg PO DAILY cholecalciferol (vitamin D3) 125 mcg (5,000 unit) capsule 125 mcg PO DAILY Patient Comments: TAKE ONE CAPSULE BY MOUTH EVERY DAY omeprazole 40 mg Capsule,Delayed Release(Dr/Ec) 40 mg PO DAILY venlafaxine 75 mg tablet 75 mg PO DAILY Patient Comments: TAKE ONE TABLET BY MOUTH EVERY DAY nitroglycerin 0.4 mg tablet, sublingual 0.4 mg sublingual Q5MINP PRN (Reason: Chest Pain) Patient Comments: DISSOLVE 1 TABLET UNDER THE TONGUE EVERY 5 MINUTES NEEDED FOR CHEST PAIN. DO NOT EXCEED A TOTAL OF 3 DOSES IN 15 MINUTES. IF NO RELIEF AFTER 3 DOSES CALL 911/GO TO ER ipratropium-albuterol 0.5 mg-3 mg(2.5 mg base)/3 mL Solution For Nebulization 3 ml inhalation Q6HP PRN (Reason: Shortness Of Breath) Qty: 0 0RF Trelegy Ellipta 100-62.5-25 mcg Blister With Device 1 inh inhalation DAILY 30 Days Qty: 1 0RF bumetanide 1 mg tablet 1 mg PO DAILY Qty: 30 0RF spironolactone 25 mg Tablet 25 mg PO DAILY 30 Days Qty: 30 0RF bisoprolol fumarate 5 mg Tablet 5 mg PO DAILY 30 Days Qty: 30 0RF levetiracetam 500 MG tablet 500 mg PO BID Referrals Follow up/Referrals: Provider,Referral, MD [Primary Care Provider] - See instructions Activity Restrictions/Add. Instructions Additional Instructions/Restrictions: Follow-up with your family doctor to have your medications reach, as well as blood work redrawn to check on your BNP, D-dimer, kidney function. Sure to have this done within 72 hours. If you have any worsening of your condition or any other concerning signs or symptoms, return to the emergency department or your primary care doctor for further evaluation. More bumetanide was sent to the pharmacy, take 1 mg of this prescription daily and be sure to stay plenty hydrated. Clinical Impressions Clinical Impression: Acute dyspnea, D-dimer, elevated Discharge ED Provider: [facility]PI <Antonio Lieberman MD - Last Filed: 10/31/23 16:28> General Chief complaint: Shortness of Breath/Dyspnea Stated complaint: SOA Time Seen by Provider: 10/31/23 11:56 History of Present Illness HPI narrative: The patient presents with a chief complaint of difficulty breathing for the past week. The onset of symptoms is not clearly described as sudden or gradual. The patient denies coughing up any sputum and reports no specific pain. No factors that improve or worsen the symptoms are mentioned. The patient has not had any recent changes in medications and normally uses 2 liters of oxygen. The patient reports worsening swelling in the right leg. No missed doses of medications are mentioned. The patient denies experiencing fevers or chills. The patient reports mild pain during bowel movements but does not mention any issues with urination. The patient was brought in from home, where there was no air conditioning or open windows. The patient received a nebulizer treatment from EMS prior to arrival and reports no improvement in symptoms after the treatment. Please note that above description of symptoms, in this electronic medical record under categorization of recalled from ER triage doctor by RN are reflective of an initial nursing assessment, however, is not reflective of my full history and physical exam that was personally taken and clarified. Consequentially, this preceding description of symptoms, which may include the patient's categorized chief complaint in the EMR, do not reflect my personal clinical impression, and the ultimate description of history of present illness and patient stated complaints should be deferred to this section of the note. Unless stated otherwise or congruent with this section of the note, additional signs, symptoms, or incongruence should be interpreted as inaccurate with my clinical impression. Related Data Home Medications Medication Instructions Recorded Confirmed levetiracetam 500 mg tablet 500 mg PO BID 01/26/21 09/05/23 magnesium oxide 400 mg (241.3 mg 400 mg PO DAILY 08/23/21 09/05/23 magnesium) tablet multivitamin 1 each PO DAILY 08/23/21 09/05/23 ropinirole 1 mg tablet 1 mg PO HS 08/23/21 09/05/23 sumatriptan succinate 100 mg tablet 100 mg PO DAILYP PRN Migraine 08/23/21 09/05/23 Headache topiramate 50 mg tablet 50 mg PO BID 08/23/21 09/05/23 aripiprazole 5 mg tablet 5 mg PO DAILY 08/07/22 09/05/23 trazodone 100 mg tablet 100 mg PO HS 08/07/22 09/05/23 buspirone 10 mg tablet 20 mg PO DAILY 06/20/23 09/05/23 cholecalciferol (vitamin D3) 125 125 mcg PO DAILY 06/20/23 09/05/23 mcg (5,000 unit) capsule omeprazole 40 mg capsule,delayed 40 mg PO DAILY 06/20/23 09/05/23 release venlafaxine 75 mg tablet 75 mg PO DAILY 06/20/23 09/05/23 nitroglycerin 0.4 mg sublingual 0.4 mg sublingual Q5MINP PRN Chest 08/09/23 09/05/23 tablet Pain Previous Rx's Medication Instructions Recorded bumetanide 1 mg tablet 1 mg PO DAILY #30 tabs 08/13/23 fluticasone fur. 100 mcg-umeclid 1 inh inhalation DAILY 30 days #1 08/13/23 62.5 mcg-vilant 25 mcg ea inhalat.powder (Trelegy Ellipta) ipratropium 0.5 mg-albuterol 3 mg 3 ml inhalation Q6HP PRN Shortness 08/13/23 (2.5 mg base)/3 mL nebulization Of Breath #0 mL soln bisoprolol fumarate 5 mg tablet 5 mg PO DAILY 30 days #30 tabs 09/07/23 spironolactone 25 mg tablet 25 mg PO DAILY 30 days #30 tabs 09/07/23 bumetanide 1 mg tablet 1 mg PO DAILY #30 tabs 10/31/23 Allergies Allergy/AdvReac Type Severity Reaction Status Date / Time Penicillins Allergy Verified 08/09/23 06:26 [facility] <Antonio Lieberman MD - Last Filed: 10/31/23 16:28> [facility] Disclaimer: The information contained in this section may have been updated after the patient was seen, as this information can be updated by other users. Medical History Mood disorder Tobacco dependence CKD (chronic kidney disease) stage 4, GFR 15-29 ml/min BMI 50.0-59.9, adult Obesity hypoventilation syndrome Respiratory failure with hypoxia and hypercapnia Kidney stone History of back pain History of gastroesophageal reflux (GERD) Congestive heart failure Seizure disorder COPD (chronic obstructive pulmonary disease) Surgical History History of cholecystectomy History of section Family History Family history of acute congestive heart failure Family history of cancer Family history of myocardial infarction Social History Smoking Status: Unknown if ever smoked second hand exposure: Yes alcohol intake: never counseling given: No substance use type: denies use counseling given: No current occupational status: retired, disabled and other Travel in the last 8 weeks: None adopted: No caregiver/support person: No foster care: No household members: spouse housing: house marital status: 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; 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 pets and animals: Yes pets and animals: cat(s) Hx Recent Travel: No sexually active: No caffeine: Yes physical activity: none cony/church: Taoist special cony needs: No working smoke detector in home: Yes fire extinguisher in home: Yes carbon monox detector in home: No firearms in home: No do you feel safe at home: Yes victim of physical abuse: No victim of emotional abuse: No victim of sexual abuse: No would you like helpful sources: No <Antonio Lieberman MD - Last Filed: 10/31/23 16:28> ROS Obtained: Yes other As per HPI Physical Exam <Antonio Lieberman MD - Last Filed: 10/31/23 16:28> General General appearance: lethargic Head Head exam: atraumatic and normocephalic Eye Eye exam: Present normal appearance Neck Neck exam: Present normal inspection Chest Chest inspection: Present normal inspection and symmetric chest wall rise Respiratory Respiratory exam: Present wheezes and other (Diffuse crackles) Cardiovascular Cardiovascular exam: Present regular rate and normal rhythm Abdominal Exam Abdominal exam: Present soft Extremities Exam Extremities exam: Present other (Bilateral lower extremity edema) Neurological Exam Neurological exam: Present alert Psychiatric Psychiatric exam: Present normal affect and normal mood Skin Skin exam: Present warm and dry Medical Decision Making <Antonio Lieberman MD - Last Filed: 10/31/23 16:28> Medical Records Medical records reviewed: Yes I reviewed the patient's medical records. Harjinder Inquiry Pt receiving controlled substance: No Vital Signs: 10/31/23 11:53 10/31/23 12:01 10/31/23 13:00 Temperature 97.9 F Temperature Source Oral Pulse Rate 77 79 Pulse Rate [Radial] 69 Respiratory Rate 18 Blood Pressure 113/47 L 133/52 L Blood Pressure [Right Arm] 117/51 L Blood Pressure Mean 69 Blood Pressure Mean [Right Arm] 73 Blood Pressure Source [Right Arm] Automatic Cuff Blood Pressure Position [Right Arm] Sitting 02 Sat by Pulse Oximetry 97 100 98 Oxygen Delivery Method Nasal Cannula Nasal Cannula Oxygen Flow Rate (LPM) 2 2 10/31/23 13:30 10/31/23 14:00 10/31/23 14:31 Temperature Temperature Source Pulse Rate 78 77 82 Pulse Rate [Radial] Respiratory Rate Blood Pressure 121/46 L 117/48 L 117/48 L Blood Pressure [Right Arm] Blood Pressure Mean Blood Pressure Mean [Right Arm] Blood Pressure Source [Right Arm] Blood Pressure Position [Right Arm] 02 Sat by Pulse Oximetry 100 96 97 Oxygen Delivery Method Nasal Cannula Nasal Cannula Oxygen Flow Rate (LPM) 2 2 10/31/23 15:30 10/31/23 16:30 10/31/23 17:00 Temperature Temperature Source Pulse Rate 88 85 79 Pulse Rate [Radial] Respiratory Rate Blood Pressure 124/64 167/74 H 118/91 H Blood Pressure [Right Arm] Blood Pressure Mean Blood Pressure Mean [Right Arm] Blood Pressure Source [Right Arm] Blood Pressure Position [Right Arm] 02 Sat by Pulse Oximetry 96 96 98 Oxygen Delivery Method Nasal Cannula Nasal Cannula Nasal Cannula Oxygen Flow Rate (LPM) 2 2 2 Lab Data Lab Results 10/31/23 11:54: WBC 7.4, RBC 3.68 L, Hgb 12.2, Hct 35.4 L, MCV 96.0, MCH 33.2 H, MCHC 34.5, RDW 14.0, Plt Count 172, MPV 8.6, Neut % (Auto) 66.7, Lymph % (Auto) 25.5, [place] % (Auto) 6.9, Eos % (Auto) 0.3, Baso % (Auto) 0.7, Neut # (Auto) 4.9, Lymph # (Auto) 1.9, [place] # (Auto) 0.5, Eos # (Auto) 0.0, Baso # (Auto) 0.1, Sodium 139, Potassium 3.9, Chloride 100, Carbon Dioxide 35 H, Anion Gap 7.9, BUN 29 H, Creatinine 2.20 H, Estimated Creat Clear 18, Estimated GFR 22 L, Est GFR ( Amer) 27 L, Glucose 117 H, Calcium 9.1, Magnesium 2.0, Total Bilirubin 0.5, AST 36, ALT 19, Alkaline Phosphatase 146 H, Troponin I < 0.01, NT-Pro-B Natriuret Pep 260 H, Total Protein 7.3, Albumin 3.8, Globulin 3.5 H, Albumin/Globulin Ratio 1.1, TSH 3.73, Free T4 1.53 10/31/23 12:53: VBG pH 7.30 L, VBG pCO2 62.1 H, VBG pO2 63.2 H, VBG HCO3 29.7, V BG Total CO2 31.6 H, VBG O2 Saturation 91.4 H, VBG Base Excess 3.3 H, VBG Lactic Acid 1.0 10/31/23 13:44: D-Dimer 1.72 H 10/31/23 16:43: SARS-CoV-2 (PCR) Not detected, Influenza A Untype (PCR) Not detected, Influenza Type B (PCR) Not detected 10/31/23 17:01: Troponin I < 0.01 10/31/23 11:54 10/31/23 11:54 Orders (Tests/Meds): ED MEDICATIONS Discontinued Medications Generic Name Dose Route Start Last Admin Trade Name Freq PRN Reason Stop Dose Admin Bumetanide 1 mg 10/31/23 12:55 10/31/23 13:05 Bumetanide 1mg/4ml Vial IV 10/31/23 12:56 1 mg ONCE ONE Administration Iopamidol 140 ml 10/31/23 16:23 10/31/23 16:42 Iopamidol-370 (76%);100ml Bottle IV 10/31/23 16:24 140 ml ONCE ONE Administration Nitroglycerin 0.4 mg 10/31/23 12:55 10/31/23 13:05 Nitroglycerin 0.4mg Sl Tablet SL 10/31/23 12:56 0.4 mg ONCE ONE Administration Sodium Chloride 30 ml 10/31/23 16:23 10/31/23 16:42 Sodium Chloride 0.9% 10ml Syr (Rad Only) IV 10/31/23 16:24 30 ml ONCE ONE Administration Sodium Chloride 100 ml 10/31/23 16:23 10/31/23 16:42 0.9 % Sodium Chloride 50 Ml Vial IV 10/31/23 16:24 100 ml ONCE ONE Administration ORDERS Category Date Time Status CTA Chest [CT angio chest PE protocol] Stat Cat Scan 10/31/23 12:57 Completed Consult to Case Management [CONS] Routine Cons 10/31/23 17:33 Active BNP [NT Pro Brain Natriuretic Pep.] Stat Lab 10/31/23 11:54 Completed CBC w/Auto Diff [Complete Blood Count Auto Diff] Stat Lab 10/31/23 11:54 Completed CMP [Comprehensive Metabolic Panel] Stat Lab 10/31/23 11:54 Completed D-Dimer Stat Lab 10/31/23 13:44 Completed Free T4 (Free Thyroxine) Stat Lab 10/31/23 11:54 Completed MAG [Magnesium] Stat Lab 10/31/23 11:54 Completed Rapid PCR Covid and Flu A/B Stat Lab 10/31/23 16:43 Completed TSH [Thyroid Stimulating Hormone] Stat Lab 10/31/23 11:54 Completed Troponin I Q3H Lab 10/31/23 11:54 Completed Troponin I Q3H Lab 10/31/23 17:01 Completed VBG [Venous Blood Gas] Stat RT 10/31/23 12:53 Completed Medical Decision Narrative: Patient with history and exam per above presenting for evaluation of shortness of breath Diagnoses considered include COPD exacerbation, CHF exacerbation, symptomatic hypercarbia, pulmonary embolism, no clinical evidence at this time to suggest ACS, or dissection. On [id number] ultrasound, patient is with plethoric IVC, diffuse B-lines on ultrasound imaging of lung, wheezy with previous neb administered by EMS, however maintained index of suspicion for cardiac wheeze. Patient is clinically chronically immobilized, likely bedbound, difficult to differentiate acute versus chronic leg swelling, however clinically hypervolemic. ED workup and treatment included: ED MEDICATIONS Generic Name Dose Route Start Last Admin Trade Name Freq PRN Reason Stop Dose Admin Iopamidol 140 ml 10/31/23 16:23 Iopamidol-370 (76%);100ml Bottle IV 10/31/23 16:24 ONCE ONE Sodium Chloride 30 ml 10/31/23 16:23 Sodium Chloride 0.9% 10ml Syr (Rad Only) IV 10/31/23 16:24 ONCE ONE Sodium Chloride 100 ml 10/31/23 16:23 0.9 % Sodium Chloride 50 Ml Vial IV 10/31/23 16:24 ONCE ONE Discontinued Medications Generic Name Dose Route Start Last Admin Trade Name Freq PRN Reason Stop Dose Admin Bumetanide 1 mg 10/31/23 12:55 10/31/23 13:05 Bumetanide 1mg/4ml Vial IV 10/31/23 12:56 1 mg ONCE ONE Administration Nitroglycerin 0.4 mg 10/31/23 12:55 10/31/23 13:05 Nitroglycerin 0.4mg Sl Tablet SL 10/31/23 12:56 0.4 mg ONCE ONE Administration ORDERS Category Date Time Status CTA Chest [CT angio chest PE protocol] Stat Cat Scan 10/31/23 12:57 Taken BNP [NT Pro Brain Natriuretic Pep.] Stat Lab 10/31/23 11:54 Completed CBC w/Auto Diff [Complete Blood Count Auto Diff] Stat Lab 10/31/23 11:54 Completed CMP [Comprehensive Metabolic Panel] Stat Lab 10/31/23 11:54 Completed D-Dimer Stat Lab 10/31/23 13:44 Completed Free T4 (Free Thyroxine) Stat Lab 10/31/23 11:54 Completed MAG [Magnesium] Stat Lab 10/31/23 11:54 Completed TSH [Thyroid Stimulating Hormone] Stat Lab 10/31/23 11:54 Completed Troponin I Q3H Lab 10/31/23 11:54 Completed Troponin I Q3H Lab 10/31/23 16:00 Ordered VBG [Venous Blood Gas] Stat RT 10/31/23 12:53 Completed Labs were independently interpreted by me, significant for D-dimer 1.72, VBG with respiratory acidosis, no leukocytosis, BNP 260, other labs pending at this time. Care was transferred to incoming physician. <Richmond Barkley MD - Last Filed: 10/31/23 17:56> Vital Signs: 10/31/23 11:53 10/31/23 12:01 10/31/23 13:00 Temperature 97.9 F Temperature Source Oral Pulse Rate 77 79 Pulse Rate [Radial] 69 Respiratory Rate 18 Blood Pressure 113/47 L 133/52 L Blood Pressure [Right Arm] 117/51 L Blood Pressure Mean 69 Blood Pressure Mean [Right Arm] 73 Blood Pressure Source [Right Arm] Automatic Cuff Blood Pressure Position [Right Arm] Sitting 02 Sat by Pulse Oximetry 97 100 98 Oxygen Delivery Method Nasal Cannula Nasal Cannula Oxygen Flow Rate (LPM) 2 2 10/31/23 13:30 10/31/23 14:00 10/31/23 14:31 Temperature Temperature Source Pulse Rate 78 77 82 Pulse Rate [Radial] Respiratory Rate Blood Pressure 121/46 L 117/48 L 117/48 L Blood Pressure [Right Arm] Blood Pressure Mean Blood Pressure Mean [Right Arm] Blood Pressure Source [Right Arm] Blood Pressure Position [Right Arm] 02 Sat by Pulse Oximetry 100 96 97 Oxygen Delivery Method Nasal Cannula Nasal Cannula Oxygen Flow Rate (LPM) 2 2 10/31/23 15:30 10/31/23 16:30 10/31/23 17:00 Temperature Temperature Source Pulse Rate 88 85 79 Pulse Rate [Radial] Respiratory Rate Blood Pressure 124/64 167/74 H 118/91 H Blood Pressure [Right Arm] Blood Pressure Mean Blood Pressure Mean [Right Arm] Blood Pressure Source [Right Arm] Blood Pressure Position [Right Arm] 02 Sat by Pulse Oximetry 96 96 98 Oxygen Delivery Method Nasal Cannula Nasal Cannula Nasal Cannula Oxygen Flow Rate (LPM) 2 2 2 Lab Data Lab Results 10/31/23 11:54: WBC 7.4, RBC 3.68 L, Hgb 12.2, Hct 35.4 L, MCV 96.0, MCH 33.2 H, MCHC 34.5, RDW 14.0, Plt Count 172, MPV 8.6, Neut % (Auto) 66.7, Lymph % (Auto) 25.5, [place] % (Auto) 6.9, Eos % (Auto) 0.3, Baso % (Auto) 0.7, Neut # (Auto) 4.9, Lymph # (Auto) 1.9, [place] # (Auto) 0.5, Eos # (Auto) 0.0, Baso # (Auto) 0.1, Sodium 139, Potassium 3.9, Chloride 100, Carbon Dioxide 35 H, Anion Gap 7.9, BUN 29 H, Creatinine 2.20 H, Estimated Creat Clear 18, Estimated GFR 22 L, Est GFR ( Amer) 27 L, Glucose 117 H, Calcium 9.1, Magnesium 2.0, Total Bilirubin 0.5, AST 36, ALT 19, Alkaline Phosphatase 146 H, Troponin I < 0.01, NT-Pro-B Natriuret Pep 260 H, Total Protein 7.3, Albumin 3.8, Globulin 3.5 H, Albumin/Globulin Ratio 1.1, TSH 3.73, Free T4 1.53 10/31/23 12:53: VBG pH 7.30 L, VBG pCO2 62.1 H, VBG pO2 63.2 H, VBG HCO3 29.7, V BG Total CO2 31.6 H, VBG O2 Saturation 91.4 H, VBG Base Excess 3.3 H, VBG Lactic Acid 1.0 10/31/23 13:44: D-Dimer 1.72 H 10/31/23 16:43: SARS-CoV-2 (PCR) Not detected, Influenza A Untype (PCR) Not detected, Influenza Type B (PCR) Not detected 10/31/23 17:01: Troponin I < 0.01 Orders (Tests/Meds): ED MEDICATIONS Discontinued Medications Generic Name Dose Route Start Last Admin Trade Name Freq PRN Reason Stop Dose Admin Bumetanide 1 mg 10/31/23 12:55 10/31/23 13:05 Bumetanide 1mg/4ml Vial IV 10/31/23 12:56 1 mg ONCE ONE Administration Iopamidol 140 ml 10/31/23 16:23 10/31/23 16:42 Iopamidol-370 (76%);100ml Bottle IV 10/31/23 16:24 140 ml ONCE ONE Administration Nitroglycerin 0.4 mg 10/31/23 12:55 10/31/23 13:05 Nitroglycerin 0.4mg Sl Tablet SL 10/31/23 12:56 0.4 mg ONCE ONE Administration Sodium Chloride 30 ml 10/31/23 16:23 10/31/23 16:42 Sodium Chloride 0.9% 10ml Syr (Rad Only) IV 10/31/23 16:24 30 ml ONCE ONE Administration Sodium Chloride 100 ml 10/31/23 16:23 10/31/23 16:42 0.9 % Sodium Chloride 50 Ml Vial IV 10/31/23 16:24 100 ml ONCE ONE Administration ORDERS Category Date Time Status CTA Chest [CT angio chest PE protocol] Stat Cat Scan 10/31/23 12:57 Completed Consult to Case Management [CONS] Routine Cons 10/31/23 17:33 Active BNP [NT Pro Brain Natriuretic Pep.] Stat Lab 10/31/23 11:54 Completed CBC w/Auto Diff [Complete Blood Count Auto Diff] Stat Lab 10/31/23 11:54 Completed CMP [Comprehensive Metabolic Panel] Stat Lab 10/31/23 11:54 Completed D-Dimer Stat Lab 10/31/23 13:44 Completed Free T4 (Free Thyroxine) Stat Lab 10/31/23 11:54 Completed MAG [Magnesium] Stat Lab 10/31/23 11:54 Completed Rapid PCR Covid and Flu A/B Stat Lab 10/31/23 16:43 Completed TSH [Thyroid Stimulating Hormone] Stat Lab 10/31/23 11:54 Completed Troponin I Q3H Lab 10/31/23 11:54 Completed Troponin I Q3H Lab 10/31/23 17:01 Completed VBG [Venous Blood Gas] Stat RT 10/31/23 12:53 Completed Medical Decision Narrative: Patient with history and exam per above presenting for evaluation of shortness of breath Diagnoses considered include COPD exacerbation, CHF exacerbation, symptomatic hypercarbia, pulmonary embolism, no clinical evidence at this time to suggest ACS, or dissection. On [id number] ultrasound, patient is with plethoric IVC, diffuse B-lines on ultrasound imaging of lung, wheezy with previous neb administered by EMS, however maintained index of suspicion for cardiac wheeze. Patient is clinically chronically immobilized, likely bedbound, difficult to differentiate acute versus chronic leg swelling, however clinically hypervolemic. ED workup and treatment included: ED MEDICATIONS Generic Name Dose Route Start Last Admin Trade Name Freq PRN Reason Stop Dose Admin Iopamidol 140 ml 10/31/23 16:23 Iopamidol-370 (76%);100ml Bottle IV 10/31/23 16:24 ONCE ONE Sodium Chloride 30 ml 10/31/23 16:23 Sodium Chloride 0.9% 10ml Syr (Rad Only) IV 10/31/23 16:24 ONCE ONE Sodium Chloride 100 ml 10/31/23 16:23 0.9 % Sodium Chloride 50 Ml Vial IV 10/31/23 16:24 ONCE ONE Discontinued Medications Generic Name Dose Route Start Last Admin Trade Name Zoey PRN Reason Stop Dose Admin Bumetanide 1 mg 10/31/23 12:55 10/31/23 13:05 Bumetanide 1mg/4ml Vial IV 10/31/23 12:56 1 mg ONCE ONE Administration Nitroglycerin 0.4 mg 10/31/23 12:55 10/31/23 13:05 Nitroglycerin 0.4mg Sl Tablet SL 10/31/23 12:56 0.4 mg ONCE ONE Administration ORDERS Category Date Time Status CTA Chest [CT angio chest PE protocol] Stat Cat Scan 10/31/23 12:57 Taken BNP [NT Pro Brain Natriuretic Pep.] Stat Lab 10/31/23 11:54 Completed CBC w/Auto Diff [Complete Blood Count Auto Diff] Stat Lab 10/31/23 11:54 Completed CMP [Comprehensive Metabolic Panel] Stat Lab 10/31/23 11:54 Completed D-Dimer Stat Lab 10/31/23 13:44 Completed Free T4 (Free Thyroxine) Stat Lab 10/31/23 11:54 Completed MAG [Magnesium] Stat Lab 10/31/23 11:54 Completed TSH [Thyroid Stimulating Hormone] Stat Lab 10/31/23 11:54 Completed Troponin I Q3H Lab 10/31/23 11:54 Completed Troponin I Q3H Lab 10/31/23 16:00 Ordered VBG [Venous Blood Gas] Stat RT 10/31/23 12:53 Completed Labs were independently interpreted by me, significant for D-dimer 1.72, VBG with respiratory acidosis, no leukocytosis, BNP 260, other labs pending at this time. Care was transferred to incoming physician. Filippo: I assumed primary responsibility for this patient after signout from previous physician. On my evaluation, patient resting in bed, not complaining of anything at this time. States she is not even currently uncomfortable. Lungs are clear to my evaluation, abdomen is soft, nontender, nondistended. Patient on her home 2 L nasal cannula saturating anywhere from 97 to 100%. Normotensive, nontachycardic. Labs independently interpreted and patient has nonactionable CBC, stable CKD with no SHAYLA, nonactionable VBG. Troponin negative, D-dimer elevated at 1.7, BNP negative at 260. Ultrasound-guided IV placed, infiltrated on CT PE. Other physician currently in the emergency department tried, also infiltrated. CT without contrast of the chest was obtained, no evidence of pneumothorax, cardiopulmonary space disease. COVID/flu swab negative. Hospital medicine contacted and case was discussed at length for evaluation and admission. Hospitalist saw patient and on his evaluation with patient, patient reportedly stated that she feels like she is back to her baseline, has no acute complaints, and medicine physician states, given familiarity with her and having admitted her numerous times in the past, that she appears better than she usually does. Conversation was had regarding admission for monitoring kidney function, patient also able to do this outpatient, I feel this is appropriate as well. Case management contacted to set up appointment for patient to follow-up outpatient and have labs redrawn. Because patient at baseline without signs or symptoms of clinical decompensation, deemed appropriate for discharge. Results were relayed to patient who voiced understanding and were agreeable to outpatient management and follow up. I discussed my clinical impression with patient and answered all questions. At this time, the evidence for any other entities in the differential is insufficient to warrant any further testing or ED observation. This was explained as well. Advisory was given that persistent or worsening symptoms require further evaluation. I confirmed the understanding of this discussion. Critical Care <Antonio Lieberman MD - Last Filed: 10/31/23 16:28> Critical Care Time Critical Care Time: No
--- NOTE | 2023-10-31 12:57 | CT_ITS ---
PROCEDURE INFORMATION: Exam: CT Chest Without Contrast; Diagnostic Exam date and time: 10/31/2023 3:49 PM Age: 63 years old Clinical indication: Shortness of breath; Additional info: Pe suspected, high risk. TECHNIQUE: Imaging protocol: Diagnostic computed tomography of the chest without contrast. 3D rendering (Not supervised by radiologist): MIP and/or 3D reconstructed images were created by the technologist. Study was requested as a CTA to exclude PE. Two IV injections were attempted which were unsuccessful as both IV sites blew and physician did not wish to give anymore contrast. Radiation optimization: All CT scans at this facility use at least one of these dose optimization techniques: automated exposure control; mA and/or kV adjustment per patient size (includes targeted exams where dose is matched to clinical indication); or iterative reconstruction. COMPARISON: CR XR CHEST PORTABLE 09/04/2023 4:46 PM FINDINGS: Lungs: Lung santos somewhat degraded by motion artifact. Mild bilateral fibro atelectatic changes. Pleural spaces: Unremarkable. No pneumothorax. No pleural effusion. Heart: Unremarkable. No cardiomegaly. No pericardial effusion. Coronary arteries: Mild coronary artery calcifications are noted. Lymph nodes: Unremarkable. No enlarged lymph nodes. Vasculature: Aorta normal caliber with mild atherosclerotic changes. cannot exclude dissection on this noncontrast CT. Bones/joints: Diffuse increased sclerosis of the bony structures most pronounced in the spine. Soft tissues: Large area of contrast extravasation noted in the upper aspect of the right arm incompletely included in the field of view. This measures 6.5 x 5.8 cm but the entire extent not visualized allow for accurate measurements. IMPRESSION: 1. No acute cardiopulmonary disease. Assessment for PE not possible on this noncontrast CT. 2. Diffuse increased sclerosis of the bony structures most pronounced in the spine. This may be metabolic potentially related to renal osteodystrophy or some other metabolic bone process. Developing blastic bone Mets might also be considered. 3. Large area of extravasated contrast noted in the upper aspect of the right arm incompletely included in the field of view. This finding can be correlated clinically.
[2023-10-31] MEDS: NITROGLYCERIN 0.4MG SL TABLET 0.4 MG SL (13:05)
[2023-10-31] MEDS: BUMETANIDE 1MG/4ML VIAL 1 MG IV (13:05)
[2023-10-31 13:06] LABS: Basophils # 0.1 K/mm3 (0-0.2); Basophils % 0.7 % (0.1-2.0); Eosinophils % 0.3 % (0.1-12.0); Hematocrit 35.4 % (37.0-47.0); Hemoglobin 12.2 g/dL (12.2-16.2); Lymphocytes # 1.9 K/mm3 (0.7-4.5); Lymphocytes % 25.5 % (10-50); Mean Corpuscular HGB Conc 34.5 g/dL (31.8-35.4); Mean Corpuscular Hemoglobin 33.2 pg (27.0-31.2); Mean Platelet Volume 8.6 fl (7.4-10.4); Monocytes # 0.5 K/mm3 (0.1-1.0); Monocytes % 6.9 % (1.7-9.3); Neutrophils # 4.9 K/mm3 (1.8-7.8); Neutrophils % 66.7 % (37.0-80.0); Platelet Count 172 K/mm3 (142-424); Red Blood Count 3.68 M/mm3 (4.20-5.40); White Blood Count 7.4 K/mm3 (4.8-10.8)
[2023-10-31 13:09] LABS: Chloride 100 mmol/L (98-107); Potassium 3.9 mmoL/L (3.5-5.1); Sodium 139 mmol/L (136-145)
[2023-10-31 13:11] LABS: Alanine Aminotransferase 19 U/L (12-78); Aspartate Amino Transferase 36 U/L (14-36); Blood Urea Nitrogen 29 mg/dl (7-17); Creatinine Clearance Estimated 18 mL/min (50-200); Estimated Glomerular Filt Rate 22 ml/min (>60); GFR (African American) 27 ML/MIN (>60)
[2023-10-31 13:12] LABS: Albumin Level 3.8 g/dl (3.5-5.0); Albumin/Globulin Ratio 1.1 (1.1-1.8); Alkaline Phosphatase 146 U/L (38-126); Anion Gap 7.9 mEq/L (5-15); Bilirubin,Total 0.5 mg/dl (0.2-1.3); Calcium 9.1 mg/dl (8.4-10.2); Carbon Dioxide 35 mmol/L (22.0-30.0); Globulin 3.5 g/dL (1.3-3.2); Glucose 117 mg/dl (74-100); Total Protein,Serum 7.3 g/dl (6.3-8.2)
[2023-10-31 13:22] LABS: NT Pro Brain Natriuretic Pep. 260 pg/mL (0-125)
[2023-10-31 13:28] LABS: Free T4 (Free Thyroxine) 1.53 ng/dl (0.78-2.19)
[2023-10-31 13:43] LABS: Thyroid Stimulating Hormone 3.73 uIU/mL (0.465-4.68)
[2023-10-31 13:44] LABS: Troponin I < 0.01 ng/ml (0.00-0.034)
[2023-10-31 14:07] LABS: D-Dimer 1.72 ug/mL (0.0-0.5)
--- NOTE | 2023-10-31 15:25 | PC.NURSE ---
IV PLACED BY DR TRAORE VIA US
[2023-10-31 16:15] LABS: VBG Base Excess 3.3 mmol/L (-2.4-2.3); VBG HCO3 29.7 mmol/L (23-30); VBG Oxygen Saturation 91.4 % (50-70); VBG PO2 63.2 mmol/L (28-40); VBG Total CO2 31.6 mmol/L (23-27)
[2023-10-31 16:17] LABS: VBG PCO2 62.1 mmol/L (35-51)
--- NOTE | 2023-10-31 16:38 | PC.NURSE ---
DR TRAORE SPEAKING WITH HOSPITALIST
[2023-10-31] MEDS: SODIUM CHLORIDE 0.9% 10ML SYR (RAD ONLY) 30 ML IV (16:42)
[2023-10-31] MEDS: IOPAMIDOL-370 (76%);100ML BOTTLE 140 ML IV (16:42)
[2023-10-31] MEDS: 0.9 % SODIUM CHLORIDE 50 ML VIAL 100 ML IV (16:42)
[2023-10-31 16:47] LABS: Coronavirus 19, PCR Not Detected (NotDetected); Influenza A, PCR Not Detected (NotDetected); Influenza B, PCR Not Detected (NotDetected)
--- NOTE | 2023-10-31 16:50 | PC.NURSE ---
DR BRISCOE AT BEDSIDE
--- NOTE | 2023-10-31 17:11 | P.CONS_ITS ---
History of Present Illness *Admission Date: 10/31/23 *Reason for visit:: dyspnea *History of present illness: Ms. Diaz is a 63-year-old female with complex past medical history of morbid obesity, lymphedema, heart failure, chronic respiratory failure, CKD stage IV, significant social determinants with insecure housing, poor air conditioning, medication and healthcare and consistent sleep/noncompliance. She has had multiple admissions over the past 6 months for respiratory failure, kidney injury, volume overload and heart failure. Patient wears 2 L nasal cannula at baseline and is supposed to use a BiPAP at night. She reported to the ER with chief complaint of difficulty breathing over the past week. Onset is gradual. Denies a productive cough. Denies any fever. Continues to remain on her baseline oxygen. Received nebulizers in the ambulance with improvement in breathing. Also reports worsening swelling in her legs. Denies any fever, chills, chest pain, confusion, nausea or vomiting. Workup in the ER, patient's creatinine is at baseline. On baseline oxygen. Hemodynamically stable. Sats in the high 90s on 2 L oxygen. White cell count normal. CT Noncon with no focal consolidation or airspace disease. Medicine was consulted to evaluate for admission versus stability going home given patient's complex comorbidities and unfamiliarity of patient to ER. On my evaluation, patient states she is feeling better. Appears at baseline level of cognition and function. States she has not taken her loop diuretic in the past at least 2 weeks. Reports she is not wearing her BiPAP due to difficulty with tolerance. [facility] Disclaimer: The information contained in this section may have been updated after the patient was seen, as this information can be updated by other users. Medical History Mood disorder Tobacco dependence CKD (chronic kidney disease) stage 4, GFR 15-29 ml/min BMI 50.0-59.9, adult Obesity hypoventilation syndrome Respiratory failure with hypoxia and hypercapnia Kidney stone History of back pain History of gastroesophageal reflux (GERD) Congestive heart failure Seizure disorder COPD (chronic obstructive pulmonary disease) Surgical History History of cholecystectomy History of section Family History Other Family history of acute congestive heart failure Family history of cancer Family history of myocardial infarction Social History Smoking Status: Unknown if ever smoked second hand exposure: Yes alcohol intake: never counseling given: No substance use type: denies use counseling given: No current occupational status: retired, disabled and other Travel in the last 8 weeks: None adopted: No caregiver/support person: No foster care: No household members: spouse housing: house marital status: 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; 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 pets and animals: Yes pets and animals: cat(s) Hx Recent Travel: No sexually active: No caffeine: Yes physical activity: none cony/mu-ism: Hindu special cony needs: No working smoke detector in home: Yes fire extinguisher in home: Yes carbon monox detector in home: No firearms in home: No do you feel safe at home: Yes victim of physical abuse: No victim of emotional abuse: No victim of sexual abuse: No would you like helpful sources: No Review of Systems Review of Systems Review of systems (narrative): 14 point review of systems performed, pertinent positives and negatives as per HPI Exam Data for Last 24 hours Vital signs and Labs for Last 24 Hours: Temp Pulse Resp BP Pulse Ox O2 Del Method O2 Flow Rate 97.9 F 79 18 118/91 H 98 Nasal Cannula 2 10/31/23 11:53 10/31/23 17:00 10/31/23 11:53 10/31/23 17:00 10/31/23 17:00 10/31/23 17:00 10/31/23 17:00 Laboratory Results - last 24 hr 10/31/23 11:54: WBC 7.4, RBC 3.68 L, Hgb 12.2, Hct 35.4 L, MCV 96.0, MCH 33.2 H, MCHC 34.5, RDW 14.0, Plt Count 172, MPV 8.6, Neut % (Auto) 66.7, Lymph % (Auto) 25.5, Whitman % (Auto) 6.9, Eos % (Auto) 0.3, Baso % (Auto) 0.7, Neut # (Auto) 4.9, Lymph # (Auto) 1.9, Whitman # (Auto) 0.5, Eos # (Auto) 0.0, Baso # (Auto) 0.1, Sodium 139, Potassium 3.9, Chloride 100, Carbon Dioxide 35 H, Anion Gap 7.9, BUN 29 H, Creatinine 2.20 H, Estimated Creat Clear 18, Estimated GFR 22 L, Est GFR ( Amer) 27 L, Glucose 117 H, Calcium 9.1, Magnesium 2.0, Total Bilirubin 0.5, AST 36, ALT 19, Alkaline Phosphatase 146 H, Troponin I < 0.01, NT-Pro-B Natriuret Pep 260 H, Total Protein 7.3, Albumin 3.8, Globulin 3.5 H, Albumin/Globulin Ratio 1.1, TSH 3.73, Free T4 1.53 10/31/23 12:53: VBG pH 7.30 L, VBG pCO2 62.1 H, VBG pO2 63.2 H, VBG HCO3 29.7, V BG Total CO2 31.6 H, VBG O2 Saturation 91.4 H, VBG Base Excess 3.3 H, VBG Lactic Acid 1.0 10/31/23 13:44: D-Dimer 1.72 H I & O for Last 24 hours: Intake & Output 10/28/23 10/29/23 10/30/23 10/31/23 23:59 23:59 23:59 23:59 Weight 136.078 kg Constitutional Constitutional: no acute distress, morbidly obese, chronically ill appearing and cooperative *Routine HEENT Exam Head: Present normocephalic Eye: Present EOMI and PERRL ENT: Present mucous membranes moist *Routine Neck Exam Neck: Present supple; Absent lymphadenopathy *Routine Respiratory Exam Respiratory: Present distant breath sounds, diminished air movement and normal respiratory effort; Absent rhonchi, wheezes or crackles *Routine Cardiovascular Exam Cardiovascular: Present RRR *Routine Abdominal Exam Abdominal: Present soft and normoactive bowel sounds; Absent tenderness *Routine Rectal Exam Patient deferred: visual exam *Routine Exam Patient deferred: external exam *Routine Extremities Exam Extremities: Present edema (1-2+ to thighs, significant wrinkling of skin); Absent cyanosis or clubbing *Routine Skin Exam Skin: Present intact, dry and warm; Absent rash *Routine Neurological Exam Neurological: Present alert, oriented X3, moving all extremities and normal speech; Absent altered mental status Comments: Patient at baseline mentation Routine Psychiatric Exam Psychiatric: Present normal affect Meds Home Medications and Allergies Home Medications Medication Instructions Recorded Confirmed Type levetiracetam 500 mg tablet 500 mg PO BID 01/26/21 09/05/23 History magnesium oxide 400 mg (241.3 mg 400 mg PO DAILY 08/23/21 09/05/23 History magnesium) tablet multivitamin 1 each PO DAILY 08/23/21 09/05/23 History ropinirole 1 mg tablet 1 mg PO HS 08/23/21 09/05/23 History sumatriptan succinate 100 mg tablet 100 mg PO DAILYP PRN Migraine 08/23/21 09/05/23 History Headache topiramate 50 mg tablet 50 mg PO BID 08/23/21 09/05/23 History aripiprazole 5 mg tablet 5 mg PO DAILY 08/07/22 09/05/23 History trazodone 100 mg tablet 100 mg PO HS 08/07/22 09/05/23 History buspirone 10 mg tablet 20 mg PO DAILY 06/20/23 09/05/23 History cholecalciferol (vitamin D3) 125 125 mcg PO DAILY 06/20/23 09/05/23 History mcg (5,000 unit) capsule omeprazole 40 mg capsule,delayed 40 mg PO DAILY 06/20/23 09/05/23 History release venlafaxine 75 mg tablet 75 mg PO DAILY 06/20/23 09/05/23 History nitroglycerin 0.4 mg sublingual 0.4 mg sublingual Q5MINP PRN Chest 08/09/23 09/05/23 History tablet Pain bumetanide 1 mg tablet 1 mg PO DAILY #30 tabs 08/13/23 09/05/23 Rx fluticasone fur. 100 mcg-umeclid 1 inh inhalation DAILY 30 days #1 08/13/23 09/05/23 Rx 62.5 mcg-vilant 25 mcg ea inhalat.powder (Trelegy Ellipta) ipratropium 0.5 mg-albuterol 3 mg 3 ml inhalation Q6HP PRN Shortness 08/13/23 09/05/23 Rx (2.5 mg base)/3 mL nebulization Of Breath #0 mL soln bisoprolol fumarate 5 mg tablet 5 mg PO DAILY 30 days #30 tabs 09/07/23 Rx spironolactone 25 mg tablet 25 mg PO DAILY 30 days #30 tabs 09/07/23 Rx bumetanide 1 mg tablet 1 mg PO DAILY #30 tabs 10/31/23 Rx New Prescriptions to Start Prescriptions: bumetanide [place] Allergies Allergy/AdvReac Type Severity Reaction Status Date / Time Penicillins Allergy Verified 08/09/23 06:26 Results Labs 10/31/23 11:54 10/31/23 11:54 Labs: Abnormal lab results 10/31/23 10/31/23 10/31/23 Range/Units 11:54 12:53 13:44 RBC 3.68 L (4.20-5.40) M/mm3 Hct 35.4 L (37.0-47.0) % MCH 33.2 H (27.0-31.2) pg D-Dimer 1.72 H (0.0-0.5) ug/mL VBG pH 7.30 L (7.31-7.41) mmol/L VBG pCO2 62.1 H (35-51) mmol/L VBG pO2 63.2 H (28-40) mmol/L VBG Total CO2 31.6 H (23-27) mmol/L VBG O2 Saturation 91.4 H (50-70) % VBG Base Excess 3.3 H (-2.4-2.3) mmol/L Carbon Dioxide 35 H (22.0-30.0) mmol/L BUN 29 H (7-17) mg/dl Creatinine 2.20 H (0.52-1.04) mg/dl Estimated GFR 22 L (>60) ml/min Est GFR ( Amer) 27 L (>60) ML/MIN Glucose 117 H (74-100) mg/dl Alkaline Phosphatase 146 H (38-126) U/L NT-Pro-B Natriuret Pep 260 H (0-125) pg/mL Globulin 3.5 H (1.3-3.2) g/dL H & H 10/31/23 Range/Units 11:54 Hgb 12.2 (12.2-16.2) g/dL Hct 35.4 L (37.0-47.0) % All other labs normal. Assessment and Plan *Assessment and plan (1) Chronic hypoxemic respiratory failure: Status: Acute Category: Medical Code(s): J96.11 - Chronic respiratory failure with hypoxia (2) CKD (chronic kidney disease) stage 4, GFR 15-29 ml/min: Status: Acute Category: Medical Code(s): N18.4 - Chronic kidney disease, stage 4 (severe) (3) BMI 50.0-59.9, adult: Status: Acute Category: Medical Code(s): Z68.43 - Body mass index [BMI] 50.0-59.9, adult (4) Obesity hypoventilation syndrome: Status: Acute Category: Medical Code(s): E66.2 - Morbid (severe) obesity with alveolar hypoventilation (5) Seizure disorder: Status: Acute Category: Medical Code(s): G40.909 - Epilepsy, unspecified, not intractable, without status epilepticus (6) Mood disorder: Status: Acute Category: Medical Code(s): F39 - Unspecified mood [affective] disorder (7) Tobacco dependence: Status: Acute Category: Medical Code(s): F17.200 - Nicotine dependence, unspecified, uncomplicated Plan 63-year-old female with PMHx of morbid obesity, lymphedema, heart failure, chronic respiratory failure, obesity hypoventilation syndrome who presented to the ER with shortness of breath. Found to be at baseline oxygenation. Kidney function and electrolytes at baseline. No white count. Chest imaging with no consolidation or airspace disease. Patient has not been compliant with her home medications including her diuretic nor her BiPAP. On evaluation, patient is at her baseline level of function and appears to be in the same state if not better than when she was discharged 2 months ago from the hospital. Her social situation complicates her complex medical conditions. In my opinion however given her stability at baseline, she does not necessitate inpatient admission for further management. Recommend addressing problems as follows: Chronic Respiratory failure with hypoxemia and hypercapnia: COPD Heart failure with preserved ejection fraction Recommend resuming Bumex 1 mg daily. Continue breathing treatments at home as tolerated. Patient on baseline oxygen. Continue 2 L as needed. Consulted case management, will have them reach out to [facility] tomorrow to see about troubleshooting/adjusting patient's BiPAP so she can tolerate it at home Will refer to home health, patient would benefit from labs being obtained in 1 week to monitor kidney function and electrolytes. White cell count normal at 7.4. No left shift. Kidney function at baseline with BUN 29, creatinine 2.2. See Prema for stable with BUN 29, creatinine 2.2. At her baseline. Mood disorder: Continue Abilify 5 mg daily, BuSpar 20 mg daily Seizure disorder: Continue Keppra 500 mg twice daily Hypertension: Continue home regimen Morbidly obese: Complicates all aspects of her care At baseline function per my review. Stable to discharge home.
[2023-10-31 17:31] LABS: Troponin I < 0.01 ng/ml (0.00-0.034)
--- NOTE | 2023-10-31 17:55 | INFXCTL.NOTE ---
[facility] NOTIFIED OF PT NEED FOR TRANSFER HOME
--- NOTE | 2023-10-31 18:00 | PC.NURSE ---
ATTEMPTED TO NOTIFY OF PT'S DISCHARGE
--- NOTE | 2023-10-31 18:18 | PC.NURSE ---
MESSAGE LEFT WITH THAT PT IS DISCHARGED
--- NOTE | 2023-11-01 11:25 | SW/DCPLANNER ---
Addendum entered by Meghan Swain 11/01/23 11:34: Patient returned my phone call and stated that Shaina did come to home this AM for machine. Patient stated that she is using bipap machine at home. I also verified w/ Prema at [facility] and she stated that patient is currently receiving OT services. I will send new order for usp and lab draws. Patient stated that she is feeling better at this time. Original Note: I received a referral on this patient regarding discharge plans. Patient discharged home from ED yesterday and MD requested that I follow up regarding home health services, labs in one week to monitor kidney function w/ CMP and bi pap at home. I attempted to contact patient via phone w/ no answer at this time. I did leave a VM to please call me back. I will continue to follow up.
== END 2023-10-31 18:57 | disposition home or self-care (01) ==
PROVIDERS: Emergency Medicine; Emergency Provider Emergency Medicine
DX: N18.4 Chronic kidney disease, stage 4 (severe); E66.2 Morbid (severe) obesity with alveolar hypoventilation; G40.909 Epilepsy, unspecified, not intractable, without status epilepticus; Z68.43 Body mass index [BMI] 50.0-59.9, adult; R06.02 Shortness of breath; E87.29 Other acidosis; F17.210 Nicotine dependence, cigarettes, uncomplicated; J44.9 Chronic obstructive pulmonary disease, unspecified; I11.0 Hypertensive heart disease with heart failure; I50.9 Heart failure, unspecified; K21.9 Gastro-esophageal reflux disease without esophagitis
CPT/HCPCS: 71275; 80050; 80053; 82803; 83735; 83880; 84439; 84443; 84484; 85025; 85378; 87636; 96374; 99284; Q9967

== ENCOUNTER 2023-11-07 13:06 | Outpatient (CLI) | payer MEDICARE, MEDICAID, SELFPAY ==
[2023-11-07 13:40] LABS: Chloride 104 mmol/L (98-107); Potassium 4.1 mmoL/L (3.5-5.1); Sodium 142 mmol/L (136-145)
[2023-11-07 13:43] LABS: Anion Gap 8.1 mEq/L (5-15); Blood Urea Nitrogen 32 mg/dl (7-17); Calcium 8.8 mg/dl (8.4-10.2); Carbon Dioxide 34 mmol/L (22.0-30.0); Estimated Glomerular Filt Rate 24 ml/min (>60); GFR (African American) 29 ML/MIN (>60); Glucose 93 mg/dl (74-100)
== END 2023-11-07 23:59 | disposition home or self-care (01) ==
LOC: LAB.DROPOF 13:08
PROVIDERS: PCP Internal Medicine Adolescent Medicine; Visit Provider Internal Medicine Adolescent Medicine
DX: I50.9 Heart failure, unspecified (principal); J44.0 Chronic obstructive pulmonary disease with (acute) lower respiratory infection
CPT/HCPCS: 80048

== ENCOUNTER 2024-01-22 13:19 | Inpatient (IN) | payer MEDICARE, MEDICAID, SELFPAY ==
[2024-01-22] VITALS (21 sets, daily range): BP systolic 98–168; BP diastolic 48–92; PULSE 60–86; RESP 12–23; TEMP 36.6–36.8; O2SAT 90–98; BMI 60.7; BMI 52.0
--- NOTE | 2024-01-22 13:22 | ECG_ITS ---
APPROVED REPORT Exam: Resting ECG HR:148 bpm ECG Measurements Heart Rate 148 AXES SD 126 P 249 QRSd 202 QRS 225 QT 462 T 0 QTc 547 Conclusion Sinus rhythm T wave inversions anterior and septal leads without reciprocal change Electronically signed by : DAY TRAORE, 01/23/2024 14:58:54
--- NOTE | 2024-01-22 13:29 | XR_ITS ---
FINAL REPORT CLINICAL HISTORY: SOB, hypoxia COMPARISON: 09/04/2023 FINDINGS: A single portable view of the chest was obtained. Cardiomegaly is noted. The mediastinum is within normal limits. Mild bibasilar opacities are favored to represent atelectasis. There is no pneumothorax. The bony thorax is intact. IMPRESSION: Mild bibasilar opacities, favor atelectasis. Reviewed, Interpreted and Dictated by Levar Shah III, MD Transcribed by Evangelina Jones Authenticated and [facility]
--- NOTE | 2024-01-22 13:31 | ED_ITS ---
Discharge Plan Disposition Chief Complaint: Shortness of Breath/Dyspnea Prescriptions Prescriptions: No Action multivitamin 1 EACH tablet 1 each PO DAILY ropinirole 1 MG tablet 1 mg PO HS sumatriptan succinate 100 MG tablet 100 mg PO DAILYP PRN (Reason: Migraine Headache) magnesium oxide 400 MG tablet 400 mg PO DAILY topiramate 50 MG tablet 50 mg PO BID trazodone 100 mg tablet 100 mg PO HS aripiprazole 5 mg tablet 5 mg PO DAILY Patient Comments: TAKE ONE TABLET BY MOUTH EVERY DAY buspirone 10 mg tablet 20 mg PO DAILY cholecalciferol (vitamin D3) 125 mcg (5,000 unit) capsule 125 mcg PO DAILY Patient Comments: TAKE ONE CAPSULE BY MOUTH EVERY DAY omeprazole 40 mg Capsule,Delayed Release(Dr/Ec) 40 mg PO DAILY venlafaxine 75 mg tablet 75 mg PO DAILY Patient Comments: TAKE ONE TABLET BY MOUTH EVERY DAY nitroglycerin 0.4 mg tablet, sublingual 0.4 mg sublingual Q5MINP PRN (Reason: Chest Pain) Patient Comments: DISSOLVE 1 TABLET UNDER THE TONGUE EVERY 5 MINUTES NEEDED FOR CHEST PAIN. DO NOT EXCEED A TOTAL OF 3 DOSES IN 15 MINUTES. IF NO RELIEF AFTER 3 DOSES CALL 911/GO TO ER ipratropium-albuterol 0.5 mg-3 mg(2.5 mg base)/3 mL Solution For Nebulization 3 ml inhalation Q6HP PRN (Reason: Shortness Of Breath) Qty: 0 0RF Trelegy Ellipta 100-62.5-25 mcg Blister With Device 1 inh inhalation DAILY 30 Days Qty: 1 0RF bumetanide 1 mg tablet 1 mg PO DAILY Qty: 30 0RF spironolactone 25 mg Tablet 25 mg PO DAILY 30 Days Qty: 30 0RF bisoprolol fumarate 5 mg Tablet 5 mg PO DAILY 30 Days Qty: 30 0RF levetiracetam 500 MG tablet 500 mg PO BID bumetanide 1 mg tablet 1 mg PO DAILY Qty: 30 0RF Referrals Follow up/Referrals: Provider,Referral, MD [Primary Care Provider] - See instructions Print Language Print Language: Greenlandic Discharge ED Provider: Rohit Gibbons General Adult HPI General Chief complaint: Shortness of Breath/Dyspnea Stated complaint: SOA Time Seen by Provider: 01/22/24 13:24 History of Present Illness HPI narrative: Destiny Diaz is a 63F with a past medical history of COPD on 2 L nasal cannula at baseline, CHF, CKD, morbid obesity hypoventilation syndrome, presenting to the emergency department from home via EMS for shortness of breath. Per patient, approximately 1 hour prior to arrival, while she was watching TV, she became short of breath and called 911. EMS notes that on arrival, she was on her home O2 of 2 L nasal cannula with oxygen saturation of 79%. She was increased to 8 L nasal cannula and was given a breathing treatment and route and had improvement in her oxygen saturation to 97% and subjective improvement in her symptoms. Patient states that she has been taking her inhalers at home. She reports some mild chest pain at this time as well. Patient is a current smoker. Patient was noted to be covered in bedbugs by EMS and was decontaminated prior to entry into the emergency department. At this time, patient reports some improvement in her symptoms. She does report a cough. EMS also notes that she was hypotensive and round, however they did not have an appropriate blood pressure cuff size. Related Data Home Medications ?Medication ?Instructions ?Recorded ?Confirmed levetiracetam 500 mg tablet 500 mg PO BID 01/26/21 09/05/23 magnesium oxide 400 mg (241.3 mg 400 mg PO DAILY 08/23/21 09/05/23 magnesium) tablet multivitamin 1 each PO DAILY 08/23/21 09/05/23 ropinirole 1 mg tablet 1 mg PO HS 08/23/21 09/05/23 sumatriptan succinate 100 mg tablet 100 mg PO DAILYP PRN Migraine 08/23/21 09/05/23 Headache topiramate 50 mg tablet 50 mg PO BID 08/23/21 09/05/23 aripiprazole 5 mg tablet 5 mg PO DAILY 08/07/22 09/05/23 trazodone 100 mg tablet 100 mg PO HS 08/07/22 09/05/23 buspirone 10 mg tablet 20 mg PO DAILY 06/20/23 09/05/23 cholecalciferol (vitamin D3) 125 125 mcg PO DAILY 06/20/23 09/05/23 mcg (5,000 unit) capsule omeprazole 40 mg capsule,delayed 40 mg PO DAILY 06/20/23 09/05/23 release venlafaxine 75 mg tablet 75 mg PO DAILY 06/20/23 09/05/23 nitroglycerin 0.4 mg sublingual 0.4 mg sublingual Q5MINP PRN Chest 08/09/23 09/05/23 tablet Pain Previous Rx's ?Medication ?Instructions ?Recorded bumetanide 1 mg tablet 1 mg PO DAILY #30 tabs 08/13/23 fluticasone fur. 100 mcg-umeclid 1 inh inhalation DAILY 30 days #1 08/13/23 62.5 mcg-vilant 25 mcg ea inhalat.powder (Trelegy Ellipta) ipratropium 0.5 mg-albuterol 3 mg 3 ml inhalation Q6HP PRN Shortness 08/13/23 (2.5 mg base)/3 mL nebulization Of Breath #0 mL soln bisoprolol fumarate 5 mg tablet 5 mg PO DAILY 30 days #30 tabs 09/07/23 spironolactone 25 mg tablet 25 mg PO DAILY 30 days #30 tabs 09/07/23 bumetanide 1 mg tablet 1 mg PO DAILY #30 tabs 10/31/23 Allergies Allergy/AdvReac Type Severity Reaction Status Date / Time Penicillins Allergy Verified 08/09/23 06:26 [facility] Disclaimer: The information contained in this section may have been updated after the patient was seen, as this information can be updated by other users. Medical History Mood disorder Tobacco dependence CKD (chronic kidney disease) stage 4, GFR 15-29 ml/min BMI 50.0-59.9, adult Obesity hypoventilation syndrome Respiratory failure with hypoxia and hypercapnia Kidney stone History of back pain History of gastroesophageal reflux (GERD) Congestive heart failure Seizure disorder COPD (chronic obstructive pulmonary disease) Surgical History History of cholecystectomy History of section Family History Other Family history of acute congestive heart failure Family history of cancer Family history of myocardial infarction Social History Smoking Status: Current every day smoker tobacco type: cigarettes packs per day: 1 second hand exposure: Yes alcohol intake: never counseling given: No substance use type: denies use counseling given: No current occupational status: retired, disabled and other Travel in the last 8 weeks: None adopted: No caregiver/support person: No foster care: No household members: spouse housing: house marital status: 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; 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 pets and animals: Yes pets and animals: cat(s) Hx Recent Travel: No sexually active: No caffeine: Yes physical activity: none cony/baptism: [employer] special cony needs: No working smoke detector in home: Yes fire extinguisher in home: Yes carbon monox detector in home: No firearms in home: No do you feel safe at home: Yes victim of physical abuse: No victim of emotional abuse: No victim of sexual abuse: No would you like helpful sources: No Other Medical History Have you received the Flu Vaccine for this season: No Have you received the Pneumonia Vaccine: No ROS Obtained: Yes Systems reviewed as appropriate & no additional complaints except as documented Physical Exam General General appearance: alert and obese Head Head exam: atraumatic Eye Eye exam: Present normal appearance ENT ENT exam: Present normal external ear exam Neck Neck exam: Present full ROM Chest Chest inspection: Present symmetric chest wall rise Respiratory Respiratory exam: Present respiratory distress (Mild increased work of breathing) and other (Mildly diminished breath sounds bilaterally); Absent wheezes Cardiovascular Cardiovascular exam: Present regular rate and normal rhythm Abdominal Exam Abdominal exam: Present soft; Absent tenderness or guarding Extremities Exam Extremities exam: Present normal inspection Back Exam Back exam: Present normal inspection Neurological Exam Neurological exam: Present alert and oriented X3 Psychiatric Psychiatric exam: Present normal affect Skin Skin exam: Present warm and dry Medical Decision Making Medical Records Medical records reviewed: Yes I reviewed the patient's medical records. Screening: Per USPSTF and CDC recommendations, given the prevalence of disease in our region, it is our hospital?s policy to screen for HIV and viral Hepatitis for all patients aged 18 and over and those with ongoing risk factors. Harjinder Inquiry Pt receiving controlled substance: No Vital Signs: 01/22/24 13:19 01/22/24 13:30 01/22/24 14:00 Temperature 97.9 F Temperature Source Oral Pulse Rate 69 Pulse Rate [Right Radial] 69 Respiratory Rate 21 19 17 Blood Pressure 136/80 132/83 Blood Pressure [Right Arm] 136/80 Blood Pressure Mean [Right Arm] 98 02 Sat by Pulse Oximetry 95 93 L Oxygen Delivery Method Nasal Cannula Oxygen Flow Rate (LPM) 4 01/22/24 14:15 01/22/24 14:15 Temperature Temperature Source Pulse Rate 65 67 Pulse Rate [Right Radial] Respiratory Rate Blood Pressure Blood Pressure [Right Arm] Blood Pressure Mean [Right Arm] 02 Sat by Pulse Oximetry Oxygen Delivery Method Oxygen Flow Rate (LPM) Lab Data Lab Results 01/22/24 13:29: VBG pH 7.11 L, VBG pCO2 87.1 H, VBG pO2 63.0 H, VBG HCO3 27.0, V BG Total CO2 29.7 H, VBG O2 Saturation 88.2 H, VBG Base Excess -2.5 L, VBG Lactic Acid 1.6 01/22/24 13:35: WBC 4.7 L, RBC 3.99 L, Hgb 11.9 L, Hct 39.6, MCV 99.3 H, MCH 29.8, MCHC 30.0 L, RDW 15.1, Plt Count 199, MPV 8.1, Neut % (Auto) 65.7, Lymph % (Auto) 23.8, Bowman % (Auto) 8.8, Eos % (Auto) 0.6, Baso % (Auto) 1.2, Neut # (Auto) 3.1, Lymph # (Auto) 1.1, Bowman # (Auto) 0.4, Eos # (Auto) 0.0, Baso # (Auto) 0.1, D-Dimer 1.06 H, Sodium 139, Potassium 5.0, Chloride 100, Carbon Dioxide 35 H, Anion Gap 9.0, BUN 69 H, Creatinine 2.30 H, Estimated Creat Clear 22, Estimated GFR 21 L, Est GFR ( Amer) 26 L, Glucose 127 H, Calcium 8.8, Total Bilirubin 0.6, AST 40 H, ALT 23, Alkaline Phosphatase 120, Troponin I 0.07 H, Total Protein 7.4, Albumin 3.9, Globulin 3.5 H, Albumin/Globulin Ratio 1.1, HIV 1&2 Antibody Rapid Nonreactive 01/22/24 13:35 01/22/24 13:35 Orders (Tests/Meds): ED MEDICATIONS Discontinued Medications Generic Name Dose Route Start Last Admin Trade Name Freq PRN Reason Stop Dose Admin Albuterol/Ipratropium 3 ml 01/22/24 13:29 01/22/24 14:15 Ipratropium/Albuterol 3 Ml Neb IH 01/22/24 13:30 3 ml ONCE ONE Administration Magnesium Sulfate 2 gm in 50 mls @ 50 mls/hr 01/22/24 13:29 01/22/24 14:08 Magnesium Sulfate 2gm/50ml Premix IV 01/22/24 14:28 50 mls/hr ONCE ONE Administration Methylprednisolone Sodium Succinate 125 mg 01/22/24 13:29 01/22/24 14:08 Methylprednisolone Sod Succ 125mg Vial IV 01/22/24 13:30 125 mg ONCE ONE Administration ORDERS Category Date Time Status CT chest wo con Stat Cat Scan 01/22/24 14:53 Taken Pulmonology Consult [Consult to Pulmonology] [CONS] Cons 01/22/24 15:31 Active Routine CXR --portable [XR chest portable] Stat Exams 01/22/24 13:29 Completed CBC w/Auto Diff [Complete Blood Count Auto Diff] Stat Lab 01/22/24 13:35 Completed CMP [Comprehensive Metabolic Panel] Stat Lab 01/22/24 13:35 Completed Complete Blood Count Auto Diff AMLAB Lab 01/23/24 06:00 Ordered Comprehensive Metabolic Panel AMLAB Lab 01/23/24 06:00 Ordered D-Dimer Stat Lab 01/22/24 13:35 Completed HIV (1&2) Antibody Rapid Stat Lab 01/22/24 13:35 Completed Hep C Ab with Reflex to RNA Stat Lab 01/22/24 13:35 Received Magnesium AMLAB Lab 01/23/24 06:00 Ordered Rapid PCR Covid and Flu A/B Stat Lab 01/22/24 13:40 Received Trop I [Troponin I] Stat Lab 01/22/24 13:35 Completed Troponin I Q3H Lab 01/22/24 16:30 Ordered Troponin I Q3H Lab 01/22/24 19:30 Ordered Blood Culture Stat Micro 01/22/24 13:30 Received ABG [Arterial Blood Gas] Stat RT 01/22/24 15:30 Ordered VBG [Venous Blood Gas] Stat RT 01/22/24 13:29 Completed ECG Data Tracing #1: I reviewed this ECG and interpreted as documented below: EKG interpreted at 1323. Normal sinus rhythm. QTc prolonged at 547. Ventricular rate of approximately [address] elevations or depressions. T wave inversions in V2, V3 and V4. Medical Decision Narrative: Destiny Diaz is a 63-year-old female with history of CKD, COPD on 2 L nasal cannula at baseline, obesity hypoventilation syndrome, CHF, presenting to the emergency department via EMS from home due to shortness of breath. She was found to be hypoxic with oxygen levels in the upper 70s on her home O2 with EMS. She received a breathing treatment prior to arrival and had improvement in her oxygen saturation on 8 L nasal cannula. She was bumped down to 2 L nasal cannula upon arrival to maintain appropriate oxygen saturation. Patient was reporting some improvement in her symptoms since receiving the nebulizer treatment but does report some continued shortness of breath and mild chest pain. EMS crew noted that the patient was covered in bedbugs that she was decontaminated in the ambulance bay prior to entry into the emergency department. Differential diagnosis includes: COPD exacerbation, respiratory acidosis, viral respiratory illness, pneumonia, obesity hypoventilation, heart failure, among others Workup: Chest x-ray, CBC, CMP, VBG, lactate, EKG, troponin, rapid COVID/flu/RSV, blood culture x 2 Patient's workup significant for white blood cell count 4.7, hemoglobin 11.9, CBC otherwise unremarkable nonactionable, initial D-dimer 1.06. Even when adjusted for age, this is still elevated. Considerations were made to obtaining CTA pulmonary embolism protocol, however given the patient's low GFR and risk for contrast-induced nephropathy and fairly low concern for pulmonary embolism at this time, will obtain CT chest Noncon. Initial VBG with pH of 7.11 and pCO2 of 87.1 consistent with noncompensated respiratory acidosis and bicarb of 27. Patient was placed on BiPAP at this time. Lactate normal at 1.6. CMP with electrolytes within normal limits, BUN elevated at 69, creatinine of 2.3 (baseline appears to be around 2), GFR of 21, CMP otherwise unremarkable nonactionable. Initial troponin 0.07. EKG grossly unremarkable as stated above. Viral respiratory panel pending. Blood cultures pending. Patient's arrived and gave further history, stating that over the past week or so, she has been more sleepy than normal, sleeping 20 hours a day and sometimes difficult to wake up. He states that she is not eating well and she normally walks with a walker, however she has been unable to do so successfully even with his help. He notes that she has had to be placed into rehab facilities before and previously had physical therapy at home but was cleared from their perspective according to him. He states that if she is going to require placement into a rehab facility, he would prefer her to go to [facility]. At this time, discussions were had with the hospitalist, , for admission given that the patient has significant respiratory acidosis and is requiring BiPAP with functional decline at home. He agreed to admit the patient requesting ABG at this time. ABG order was placed. Patient remained hemodynamically stable and was appropriate for admission at this time. Critical Care Critical Care Time Critical Care Time: No
[2024-01-22 13:48] LABS: Lactate Venous 1.6 mmol/L (0.4-2.0); VBG Base Excess -2.5 mmol/L (-2.4-2.3); VBG Oxygen Saturation 88.2 % (50-70); VBG Total CO2 29.7 mmol/L (23-27)
[2024-01-22 13:52] LABS: VBG PH 7.11 mmol/L (7.31-7.41)
[2024-01-22 13:53] LABS: VBG PCO2 87.1 mmol/L (35-51)
[2024-01-22 14:02] LABS: D-Dimer 1.06 ug/mL (0.0-0.5)
[2024-01-22 14:04] LABS: Basophils # 0.1 K/mm3 (0-0.2); Basophils % 1.2 % (0.1-2.0); Eosinophils % 0.6 % (0.1-12.0); Hematocrit 39.6 % (37.0-47.0); Hemoglobin 11.9 g/dL (12.2-16.2); Lymphocytes # 1.1 K/mm3 (0.7-4.5); Lymphocytes % 23.8 % (10-50); Mean Corpuscular Hemoglobin 29.8 pg (27.0-31.2); Mean Corpuscular Volume 99.3 fl (81-99); Mean Platelet Volume 8.1 fl (7.4-10.4); Monocytes # 0.4 K/mm3 (0.1-1.0); Monocytes % 8.8 % (1.7-9.3); Neutrophils # 3.1 K/mm3 (1.8-7.8); Neutrophils % 65.7 % (37.0-80.0); Platelet Count 199 K/mm3 (142-424); Red Blood Count 3.99 M/mm3 (4.20-5.40); Red Cell Distribution Width 15.1 % (11.5-17.5); White Blood Count 4.7 K/mm3 (4.8-10.8)
[2024-01-22] MEDS: MAGNESIUM SULFATE IN WATER 2 GM/50 ML PIGGYBACK IV (14:08)
[2024-01-22] MEDS: METHYLPREDNISOLONE SOD SUCC 125MG VIAL 125 MG IV (14:08)
[2024-01-22] MEDS: IPRATROPIUM/ALBUTEROL 3 ML NEB IH ×3 (14:15→23:44)
[2024-01-22 14:42] LABS: HIV (1&2) Antibody Rapid NONREACTIVE (NONREACTIVE)
[2024-01-22 14:46] LABS: Albumin Level 3.9 g/dl (3.5-5.0); Chloride 100 mmol/L (98-107); Sodium 139 mmol/L (136-145)
[2024-01-22 14:49] LABS: Alanine Aminotransferase 23 U/L (12-78); Albumin/Globulin Ratio 1.1 (1.1-1.8); Alkaline Phosphatase 120 U/L (38-126); Aspartate Amino Transferase 40 U/L (14-36); Bilirubin,Total 0.6 mg/dl (0.2-1.3); Blood Urea Nitrogen 69 mg/dl (7-17); Carbon Dioxide 35 mmol/L (22.0-30.0); Creatinine Clearance Estimated 22 mL/min (50-200); Estimated Glomerular Filt Rate 21 ml/min (>60); GFR (African American) 26 ML/MIN (>60); Globulin 3.5 g/dL (1.3-3.2); Total Protein,Serum 7.4 g/dl (6.3-8.2)
[2024-01-22 14:50] LABS: Calcium 8.8 mg/dl (8.4-10.2); Glucose 127 mg/dl (74-100)
--- NOTE | 2024-01-22 14:53 | CT_ITS ---
FINAL REPORT TECHNIQUE: Axial images were obtained from the lung apex to the mid abdomen by computed tomography. Coronal reformatted images were obtained. This study was performed with techniques to keep radiation doses as low as reasonably achievable, (ALARA). Individualized dose reduction techniques using automated exposure control or adjustment of mA and/or kV according to the patient''s size were employed. CLINICAL HISTORY: Elevated D-dimer, low GFR COMPARISON: October 31, 2023 FINDINGS: This study cannot be evaluated for pulmonary embolism or thoracic aortic dissection without contrast. There is no evidence of thoracic aortic aneurysm. Cardiomegaly is noted. No mediastinal mass or adenopathy is identified. No axillary mass or adenopathy is seen.There is no pericardial or pleural effusion. No pulmonary mass or suspicious nodule is identified. Mild bilateral pulmonary scarring is noted. The chest wall is intact. Postoperative changes are seen from cholecystectomy. A small nonobstructing left renal stone is noted. Note is made of diffuse sclerosis of the bony thorax of uncertain etiology but may be due to metabolic bone disease. IMPRESSION: Mild bilateral pulmonary scarring. No acute abnormality identified within the thorax. Small nonobstructing left renal stone. Authenticated and ERN
[2024-01-22 15:01] LABS: Troponin I 0.07 ng/ml (0.00-0.034)
--- NOTE | 2024-01-22 15:03 | PC.NURSE ---
updating at this time.
--- NOTE | 2024-01-22 15:33 | PC.NURSE ---
called [facility] for Admission at this time.
[2024-01-22 15:35] LABS: Coronavirus 19, PCR Not Detected (NotDetected); Influenza A, PCR Not Detected (NotDetected); Influenza B, PCR Not Detected (NotDetected)
--- NOTE | 2024-01-22 15:35 | PC.NURSE ---
spoke with [facility] for admission and bed request
--- NOTE | 2024-01-22 15:35 | EXP.HP ---
History of Present Illness *Admission Date: 01/22/24 *Reason for visit:: Dyspneic, confused *History of present illness: Ms. Diaz is a 63-year-old female well-known to our facility. Multiple comorbidities including diastolic heart failure, obesity hypoventilation syndrome, tobacco use disorder, morbid obesity, mood disorder. Presented to the ER because of worsening shortness of breath at home. Found to be hypercapnic in the ER. Placed on BiPAP prior to my interview. Medicine consulted for admission and further management. Necessitating ICU level of care. Pulmonology consulted to assist with treatment. Patient alert, knows her name and where she is. Is confused from baseline but able to answer simple yes/no questions. Appears in mild distress. Continuing BiPAP overnight. With normal white count, no indication for antibiotics at this time. Does not appear to have pneumonia on imaging. Appears to have purely hypercapnic respiratory failure likely secondary to COPD and obesity hypoventilation. Comprehensive respiratory panel pending [facility] Disclaimer: The information contained in this section may have been updated after the patient was seen, as this information can be updated by other users. Medical History Mood disorder Tobacco dependence CKD (chronic kidney disease) stage 4, GFR 15-29 ml/min BMI 50.0-59.9, adult Obesity hypoventilation syndrome Respiratory failure with hypoxia and hypercapnia Kidney stone History of back pain History of gastroesophageal reflux (GERD) Congestive heart failure Seizure disorder COPD (chronic obstructive pulmonary disease) Surgical History History of cholecystectomy History of section Family History Other Family history of acute congestive heart failure Family history of cancer Family history of myocardial infarction Social History Smoking Status: Current every day smoker tobacco type: cigarettes packs per day: 1 second hand exposure: Yes alcohol intake: never counseling given: No substance use type: denies use counseling given: No current occupational status: retired, disabled and other Travel in the last 8 weeks: None adopted: No caregiver/support person: No foster care: No household members: spouse housing: house marital status: 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; 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 pets and animals: Yes pets and animals: cat(s) Hx Recent Travel: No sexually active: No caffeine: Yes physical activity: none cony/worship: Zoroastrian special cony needs: No working smoke detector in home: Yes fire extinguisher in home: Yes carbon monox detector in home: No firearms in home: No do you feel safe at home: Yes victim of physical abuse: No victim of emotional abuse: No victim of sexual abuse: No would you like helpful sources: No Other Medical History Have you received the Flu Vaccine for this season: No Have you received the Pneumonia Vaccine: No Review of Systems Review of Systems Review of systems (narrative): 14 point review of systems performed, pertinent positives and negatives as per [facility] Meds Home Medications and Allergies Home Medications ?Medication ?Instructions ?Recorded ?Confirmed ?Type levetiracetam 500 mg tablet 500 mg PO BID 01/26/21 09/05/23 History magnesium oxide 400 mg (241.3 mg 400 mg PO DAILY 08/23/21 09/05/23 History magnesium) tablet multivitamin 1 each PO DAILY 08/23/21 09/05/23 History ropinirole 1 mg tablet 1 mg PO HS 08/23/21 09/05/23 History sumatriptan succinate 100 mg tablet 100 mg PO DAILYP PRN Migraine 08/23/21 09/05/23 History Headache topiramate 50 mg tablet 50 mg PO BID 08/23/21 09/05/23 History aripiprazole 5 mg tablet 5 mg PO DAILY 08/07/22 09/05/23 History trazodone 100 mg tablet 100 mg PO HS 08/07/22 09/05/23 History buspirone 10 mg tablet 20 mg PO DAILY 06/20/23 09/05/23 History cholecalciferol (vitamin D3) 125 125 mcg PO DAILY 06/20/23 09/05/23 History mcg (5,000 unit) capsule omeprazole 40 mg capsule,delayed 40 mg PO DAILY 06/20/23 09/05/23 History release venlafaxine 75 mg tablet 75 mg PO DAILY 06/20/23 09/05/23 History nitroglycerin 0.4 mg sublingual 0.4 mg sublingual Q5MINP PRN Chest 08/09/23 09/05/23 History tablet Pain bumetanide 1 mg tablet 1 mg PO DAILY #30 tabs 08/13/23 09/05/23 Rx fluticasone fur. 100 mcg-umeclid 1 inh inhalation DAILY 30 days #1 08/13/23 09/05/23 Rx 62.5 mcg-vilant 25 mcg ea inhalat.powder (Trelegy Ellipta) ipratropium 0.5 mg-albuterol 3 mg 3 ml inhalation Q6HP PRN Shortness 08/13/23 09/05/23 Rx (2.5 mg base)/3 mL nebulization Of Breath #0 mL soln bisoprolol fumarate 5 mg tablet 5 mg PO DAILY 30 days #30 tabs 09/07/23 Rx spironolactone 25 mg tablet 25 mg PO DAILY 30 days #30 tabs 09/07/23 Rx bumetanide 1 mg tablet 1 mg PO DAILY #30 tabs 10/31/23 Rx New Prescriptions to Start Prescriptions: Allergies Allergy/AdvReac Type Severity Reaction Status Date / Time Penicillins Allergy Verified 08/09/23 06:26 Exam Data for Last 24 hours Vital signs and Labs for Last 24 Hours: Temp Pulse Resp BP Pulse Ox O2 Del Method O2 Flow Rate 97.9 F 67 17 132/83 93 L Nasal Cannula 4 01/22/24 13:19 01/22/24 14:15 01/22/24 14:00 01/22/24 14:00 01/22/24 14:00 01/22/24 13:19 01/22/24 13:19 FiO2 30 01/22/24 14:19 Laboratory Results - last 24 hr 01/22/24 13:29: VBG pH 7.11 L, VBG pCO2 87.1 H, VBG pO2 63.0 H, VBG HCO3 27.0, VBG Total CO2 29.7 H, VBG O2 Saturation 88.2 H, VBG Base Excess -2.5 L, VBG Lactic Acid 1.6 01/22/24 13:35: WBC 4.7 L, RBC 3.99 L, Hgb 11.9 L, Hct 39.6, MCV 99.3 H, MCH 29.8, MCHC 30.0 L, RDW 15.1, Plt Count 199, MPV 8.1, Neut % (Auto) 65.7, Lymph % (Auto) 23.8, Shelby % (Auto) 8.8, Eos % (Auto) 0.6, Baso % (Auto) 1.2, Neut # (Auto) 3.1, Lymph # (Auto) 1.1, Shelby # (Auto) 0.4, Eos # (Auto) 0.0, Baso # (Auto) 0.1, D-Dimer 1.06 H, Sodium 139, Potassium 5.0, Chloride 100, Carbon Dioxide 35 H, Anion Gap 9.0, BUN 69 H, Creatinine 2.30 H, Estimated Creat Clear 22, Estimated GFR 21 L, Est GFR ( Amer) 26 L, Glucose 127 H, Calcium 8.8, Total Bilirubin 0.6, AST 40 H, ALT 23, Alkaline Phosphatase 120, Troponin I 0.07 H, Total Protein 7.4, Albumin 3.9, Globulin 3.5 H, Albumin/Globulin Ratio 1.1, HIV 1&2 Antibody Rapid Nonreactive I & O for Last 24 hours: Intake & Output 01/19/24 01/20/24 01/21/24 01/22/24 23:59 23:59 23:59 23:59 Weight 165.561 kg Constitutional Constitutional: mild distress, morbidly obese, chronically ill appearing, disheveled and cooperative *Routine HEENT Exam Head: Present normocephalic and cushingoid faces Eye: Present EOMI and PERRL ENT: Present mucous membranes moist *Routine Neck Exam Neck: Present supple; Absent lymphadenopathy *Routine Respiratory Exam Respiratory: Present wheezes, distant breath sounds and diminished air movement; Absent rhonchi or crackles *Routine Cardiovascular Exam Cardiovascular: Present RRR *Routine Abdominal Exam Abdominal: Present soft and normoactive bowel sounds; Absent tenderness *Routine Rectal Exam Rectal:: deferred *Routine Genitalia Exam Genitalia:: deferred *Routine Extremities Exam Extremities: Present edema (3+ edema to thighs and legs); Absent cyanosis or clubbing *Routine Skin Exam Skin: Present warm; Absent rash Comments: Numerous petechial lesions consistent with bug bites *Routine Neurological Exam Neurological: Present alert, altered mental status and moving all extremities; Absent oriented X3 Assessment and Plan *Assessment and plan (1) Acute on chronic heart failure with preserved ejection fraction (HFpEF): Status: Acute Category: Medical Code(s): I50.33 - Acute on chronic diastolic (congestive) heart failure (2) Acute on chronic respiratory failure with hypoxia and hypercapnia: Status: Acute Category: Medical Code(s): J96.21 - Acute and chronic respiratory failure with hypoxia; J96.22 - Acute and chronic respiratory failure with hypercapnia (3) Obesity hypoventilation syndrome: Status: Acute Category: Medical Code(s): E66.2 - Morbid (severe) obesity with alveolar hypoventilation (4) BMI 50.0-59.9, adult: Status: Acute Category: Medical Code(s): Z68.43 - Body mass index [BMI] 50.0-59.9, adult (5) CKD (chronic kidney disease) stage 4, GFR 15-29 ml/min: Status: Acute Category: Medical Code(s): N18.4 - Chronic kidney disease, stage 4 (severe) (6) Tobacco dependence: Status: Acute Category: Medical Code(s): F17.200 - Nicotine dependence, unspecified, uncomplicated (7) Mood disorder: Status: Acute Category: Medical Code(s): F39 - Unspecified mood [affective] disorder (8) Seizure disorder: Status: Acute Category: Medical Code(s): G40.909 - Epilepsy, unspecified, not intractable, without status epilepticus (9) Bedbug bite: Status: Acute Category: Medical Code(s): W57.XXXA - Bitten or stung by nonvenomous insect and other nonvenomous arthropods, initial encounter (10) Major depression: Status: Chronic Qualifiers: Major depression recurrence: recurrent Active/Remission status: currently active Major depression episode severity: severe Psychotic features: with psychotic features Qualified Code(s): F33.3 - Major depressive disorder, recurrent, severe with psychotic symptoms Category: Medical Code(s): F32.9 - Major depressive disorder, single episode, unspecified Plan Patient is a 63-year-old female with chronic history of tobacco dependence, obstructive sleep apnea/BMI 52/OHS/COPD overlap on 2 L of oxygen at home who presents with shortness of air with a chronic history of heart failure with preserved ejection fraction with most recent echo EF 60%. She has chronic kidney disease stage IV with a baseline creatinine 1.6 and identified history of medical noncompliance. Presented to the ER because of worsening shortness of breath. Found to be hypercapnic in the ER with hypercapnic respiratory failure. Initiated on BiPAP due to her respiratory acidosis and confusion. Discussed case with ER physician, request admission for treatment of possible pneumonia, volume overload, hypercapnic respiratory failure. I agreed to admit for further management. Necessitating ICU level care. Currently on BiPAP. High risk for decompensation. Problems addressed as follows: Acute on chronic hypoxic and hypercapnic respiratory failure Tobacco dependence BMI 52/OHS/COPD overlap Home oxygen requirement 1-2 L via nasal cannula; increased oxygen requirement and elevated CO2 in the ER. White count low at 4.7. pH 7.11 on VBG with pCO2 of 87. Initiated on BiPAP in the ER. Pulmonology consulted to assist with BiPAP management. Chest CT with no focal consolidation. Does not have any effusions per my review. Does have some pulmonary scarring noted. -Reports she is not wearing BiPAP at home. Has been worked up previously for home BiPAP. Will clarify with [employer] as to whether patient has 1 at home. -Numerous admissions in the past for hypercapnic respiratory failure due to her obesity hypoventilation syndrome. likely secondary to not having BiPAP at home and recurrent hypercapnia at night due to her COPD and obesity. -ABG in the morning -DuoNebs every 6 hours scheduled, Trelegy inhaler daily -Comprehensive respiratory panel pending. Negative COVID and flu. Acute on chronic HFpEF (class C/NYHA IV) -2 mg Bumex IV once. Resume Bumex 1 mg twice daily in the morning. Frankly volume overloaded with significant peripheral edema. -Strict I's and O's - Creatinine 2.3, BUN 69. Potassium 5.0. Troponin elevated at 0.07, repeat pending. No ischemic changes on EKG. Suspect supply/demand mismatch from hypoxia. - CBC, CMP, magnesium ordered for the morning. drug therapy requiring intensive monitoring for toxicity Beta-christofer therapy Aldosterone antagonist therapy Avoiding SGLT2 inhibitor therapy with CKD 4 Avoiding ARNI therapy with CKD 4 Echo (06/20/2023): EF 55% Nicotine dependence: Tobacco cessation education; NRT Chronic kidney disease stage IV Baseline creatinine 1.7-2.0. Elevated to 2.3 today. BUN 69. Repeat CBC, CMP, magnesium ordered for the morning Mood disorder Routine nursing interaction Pneumobilia 5 5 mg daily, BuSpar 20 mg daily, trazodone 100 mg nightly, and venlafaxine 75 mg daily Seizure disorder Seizure precautions, Keppra per home regimen with 500 mg twice daily VTE prophylaxis: Heparin CODE STATUS: Full code POA/HCS: Harsh- The length of stay for this patient will be 2 midnights or greater due to above diagnoses.
[2024-01-22 15:48] LABS: ABG Base Excess 2.3 mmol/L (-2.4-2.3); ABG HCO3 29.7 mmhg (22.0-26.0); ABG Oxygen Saturation 93 % (90-100); ABG PH 7.24 mmol/L (7.35-7.45); ABG PO2 69.3 mmhg (80-100); ABG TCO2 31.9 mmhg (23-27)
[2024-01-22 15:50] LABS: Oxygen 40 %; Pressure Support BIPAP 18/8
[2024-01-22 15:51] LABS: Allen's Test ACCEPTABLE; Source Left Radial; Vent Rate 20
[2024-01-22 15:53] LABS: ABG PCO2 71.1 mmhg (35.0-45.0)
[2024-01-22 15:56] LABS: Adenovirus,PCR Not Detected (NotDetected); Bordetella Pertussis Not Detected (NotDetected); Chlamydophila Pneumoniae, PCR Not Detected (NotDetected); Coronavirus 19, PCR Not Detected (NotDetected); Coronavirus 229E Not Detected (NotDetected); Coronavirus NL63 Not Detected (NotDetected); Coronavirus OC43 Not Detected (NotDetected); Coronovirus HKU1,PCR Not Detected (NotDetected); Human Metapneumovirus Not Detected (NotDetected); Influenza A, PCR Not Detected (NotDetected); Influenza AH1, 2009 Not Detected (NotDetected); Influenza AH1, PCR Not Detected (NotDetected); Influenza AH3,PCR Not Detected (NotDetected); Influenza B, PCR Not Detected (NotDetected); Mycoplasma Pneumoniae, PCR Not Detected (NotDetected); Parainfluenza 1, PCR Not Detected (NotDetected); Parainfluenza 2, PCR Not Detected (NotDetected); Parainfluenza 3, PCR Not Detected (NotDetected); Parainfluenza 4, PCR Not Detected (NotDetected); Respiratory Syncytial Virus Not Detected (NotDetected); Rhinovirus/Enterovirus Not Detected (NotDetected)
--- NOTE | 2024-01-22 16:07 | PC.NURSE ---
called report to gio cordero rn on and answered all questions
[2024-01-22] MEDS: BUMETANIDE 1MG/4ML VIAL 2 MG IV (17:55)
[2024-01-22 18:08] LABS: Troponin I 0.06 ng/ml (0.00-0.034)
[2024-01-22 18:55] LABS: POC Glucose,Bedside 103 (70-110)
[2024-01-22] MEDS: ROPINIROLE 1MG TABLET 1 MG PO (20:23)
[2024-01-22] MEDS: PANTOPRAZOLE 40MG TABLET 40 MG PO (20:23)
[2024-01-22] MEDS: HEPARIN SODIUM 5,000 UNIT/ML VIAL 5000 UNIT SQ (20:23)
[2024-01-22] MEDS: levETIRAcetam 500 MG TABLET PO (20:23)
[2024-01-22 20:42] LABS: Troponin I 0.06 ng/ml (0.00-0.034)
--- NOTE | 2024-01-22 22:27 | PC.NURSE ---
pt bathed, new linens placed on bed, new gown and purewick paced on pt. Mepilex applied X3 to buttocks/coccyx area, as well as barrier cream. pillow case placed under abd fold. pt pulled up in bed and repositioned. call light in reach. no needs voiced at this time.
[2024-01-22 22:50] LABS: POC Glucose,Bedside 113 (70-110)
[2024-01-23] VITALS (24 sets, daily range): BP systolic 87–159; BP diastolic 35–81; PULSE 66–90; RESP 14–29; TEMP 36.6–37.1; O2SAT 78–100; BMI 51.7
[2024-01-23] MEDS: IPRATROPIUM/ALBUTEROL 3 ML NEB IH ×3 (06:13→18:19)
[2024-01-23 06:46] LABS: POC Glucose,Bedside 102 (70-110)
[2024-01-23 07:34] LABS: Basophils % 0.2 % (0.1-2.0); Eosinophils % 0.1 % (0.1-12.0); Hematocrit 33.6 % (37.0-47.0); Lymphocytes # 0.7 K/mm3 (0.7-4.5); Lymphocytes % 18.2 % (10-50); Mean Corpuscular HGB Conc 30.5 g/dL (31.8-35.4); Mean Corpuscular Hemoglobin 29.7 pg (27.0-31.2); Mean Corpuscular Volume 97.4 fl (81-99); Mean Platelet Volume 8.4 fl (7.4-10.4); Monocytes # 0.4 K/mm3 (0.1-1.0); Monocytes % 9.6 % (1.7-9.3); Neutrophils # 2.9 K/mm3 (1.8-7.8); Neutrophils % 71.8 % (37.0-80.0); Platelet Count 176 K/mm3 (142-424); Red Blood Count 3.45 M/mm3 (4.20-5.40); Red Cell Distribution Width 15.2 % (11.5-17.5)
[2024-01-23 07:43] LABS: Chloride 100 mmol/L (98-107); Potassium 4.9 mmoL/L (3.5-5.1); Sodium 137 mmol/L (136-145)
[2024-01-23 07:45] LABS: Blood Urea Nitrogen 58 mg/dl (7-17); Creatinine Clearance Estimated 24 mL/min (50-200); Estimated Glomerular Filt Rate 25 ml/min (>60); GFR (African American) 30 ML/MIN (>60)
[2024-01-23 07:46] LABS: Alanine Aminotransferase 16 U/L (12-78); Alkaline Phosphatase 109 U/L (38-126); Anion Gap 6.9 mEq/L (5-15); Aspartate Amino Transferase 25 U/L (14-36); Bilirubin,Total 0.4 mg/dl (0.2-1.3); Calcium 8.3 mg/dl (8.4-10.2); Carbon Dioxide 35 mmol/L (22.0-30.0); Glucose 97 mg/dl (74-100); Magnesium 2.3 mg/dl (1.6-2.3)
--- NOTE | 2024-01-23 08:26 | P.PN_ITS ---
Subjective *Date: 01/23/24 *Time: 19:05 Interval history: Showing some improvement this morning. Wore BiPAP overnight. Back to baseline mentation today. at bedside during the day, discussed need for therapy and rehab. Patient agreeable at this time. No nausea or vomiting. No chest pain. Diuresing well. Currently on 2 L nasal cannula oxygen. -2 L volume status since admission. Medical Exam Vital signs and Labs for Last 24 Hours: Vital Signs Temp Pulse Pulse Resp BP BP Pulse Ox 01/23/24 08:00 80 01/23/24 07:00 76 29 H 107/51 L 95 01/23/24 06:59 01/23/24 06:13 83 01/23/24 06:13 78 01/23/24 06:13 97 01/23/24 06:00 75 20 98/46 L 93 L 01/23/24 06:00 71 25 H 96/48 L 95 01/23/24 05:00 71 23 112/53 L 100 01/23/24 05:00 01/23/24 04:00 70 01/23/24 04:00 01/23/24 04:00 98.7 F 66 27 H 109/49 L 97 01/23/24 03:02 01/23/24 03:00 67 22 98/44 L 95 01/23/24 03:00 01/23/24 02:00 79 18 102/35 L 78 L 01/23/24 01:00 01/23/24 01:00 73 16 159/81 H 97 01/23/24 00:00 70 01/22/24 23:44 70 01/22/24 23:44 72 01/22/24 23:00 78 21 108/59 L 98 01/22/24 23:00 01/22/24 22:09 01/22/24 22:00 81 22 107/66 L 98 01/22/24 21:00 01/22/24 21:00 74 22 117/58 L 95 01/22/24 20:00 70 01/22/24 20:00 97.9 F 86 22 141/80 H 95 01/22/24 19:00 70 17 168/72 H 97 01/22/24 18:50 60 01/22/24 18:50 64 01/22/24 18:50 92 L 01/22/24 18:50 01/22/24 18:40 01/22/24 18:37 01/22/24 18:00 63 18 147/77 H 94 L 01/22/24 17:00 01/22/24 17:00 62 20 138/60 97 01/22/24 16:45 98.0 F 74 18 142/63 H 90 L 01/22/24 16:40 70 01/22/24 16:07 98.2 F 70 20 108/74 L 01/22/24 16:01 65 12 98/48 L 96 01/22/24 15:31 66 13 108/75 L 97 01/22/24 15:14 68 22 122/65 95 01/22/24 14:30 71 22 128/92 H 94 L 01/22/24 14:19 01/22/24 14:15 67 01/22/24 14:15 65 01/22/24 14:15 01/22/24 14:00 69 17 132/83 93 L 01/22/24 13:30 19 136/80 01/22/24 13:19 97.9 F 69 21 136/80 95 O2 Del Method O2 Flow Rate FiO2 01/23/24 08:00 01/23/24 07:00 Nasal Cannula 2 01/23/24 06:59 Nasal Cannula 3 01/23/24 06:13 01/23/24 06:13 01/23/24 06:13 3 01/23/24 06:00 Nasal Cannula 3 01/23/24 06:00 Nasal Cannula 3 01/23/24 05:00 BiPAP 30 01/23/24 05:00 BiPAP 01/23/24 04:00 01/23/24 04:00 BiPAP 01/23/24 04:00 BiPAP 30 01/23/24 03:02 30 01/23/24 03:00 BiPAP 30 01/23/24 03:00 BiPAP 01/23/24 02:00 Nasal Cannula 3 01/23/24 01:00 Nasal Cannula 3 01/23/24 01:00 Nasal Cannula 3 01/23/24 00:00 01/22/24 23:44 01/22/24 23:44 01/22/24 23:00 BiPAP 30 01/22/24 23:00 BiPAP 01/22/24 22:09 30 01/22/24 22:00 BiPAP 30 01/22/24 21:00 BiPAP 01/22/24 21:00 BiPAP 30 01/22/24 20:00 01/22/24 20:00 BiPAP 30 01/22/24 19:00 BiPAP 01/22/24 18:50 01/22/24 18:50 01/22/24 18:50 BiPAP 30 01/22/24 18:50 30 01/22/24 18:40 BiPAP 30 01/22/24 18:37 BiPAP 01/22/24 18:00 BiPAP 01/22/24 17:00 BiPAP 01/22/24 17:00 BiPAP 01/22/24 16:45 BiPAP 01/22/24 16:40 01/22/24 16:07 BiPAP 01/22/24 16:01 01/22/24 15:31 01/22/24 15:14 01/22/24 14:30 BiPAP 01/22/24 14:19 30 01/22/24 14:15 01/22/24 14:15 01/22/24 14:15 40 01/22/24 14:00 01/22/24 13:30 01/22/24 13:19 Nasal Cannula 4 Intake and Output 01/22/24 01/23/24 01/23/24 23:59 07:59 15:59 Intake Total 0 / 0 Output Total 1251 / 1751 800 / 800 Balance -1251 / -1751 -800 / -800 Intake: Intake, Oral Amount 0 / 0 Output: Output, Urine Amount 1251 / 1751 800 / 800 Other: Number of Unmeasured Voids 0 0 Weight 141.719 kg 140.9 kg Patient Weight 01/23/24 23:59 Weight 140.9 kg Laboratory Results - last 24 hr 01/22/24 13:29: VBG pH 7.11 L, VBG pCO2 87.1 H, VBG pO2 63.0 H, VBG HCO3 27.0, VBG Total CO2 29.7 H, VBG O2 Saturation 88.2 H, VBG Base Excess -2.5 L, VBG Lactic Acid 1.6 01/22/24 13:35: WBC 4.7 L, RBC 3.99 L, Hgb 11.9 L, Hct 39.6, MCV 99.3 H, MCH 29.8, MCHC 30.0 L, RDW 15.1, Plt Count 199, MPV 8.1, Neut % (Auto) 65.7, Lymph % (Auto) 23.8, [place] % (Auto) 8.8, Eos % (Auto) 0.6, Baso % (Auto) 1.2, Neut # (Auto) 3.1, Lymph # (Auto) 1.1, [place] # (Auto) 0.4, Eos # (Auto) 0.0, Baso # (Auto) 0.1, D-Dimer 1.06 H, Sodium 139, Potassium 5.0, Chloride 100, Carbon Dioxide 35 H, Anion Gap 9.0, BUN 69 H, Creatinine 2.30 H, Estimated Creat Clear 22, Estimated GFR 21 L, Est GFR ( Amer) 26 L, Glucose 127 H, Calcium 8.8, Total Bilirubin 0.6, AST 40 H, ALT 23, Alkaline Phosphatase 120, Troponin I 0.07 H, Total Protein 7.4, Albumin 3.9, Globulin 3.5 H, Albumin/Globulin Ratio 1.1, HIV 1&2 Antibody Rapid Nonreactive 01/22/24 13:40: Chlamy pneumoniae PCR Not detected, Adenovirus (PCR) Not detected, B. pertussis DNA (PCR) Not detected, Coronavirus OC43 (PCR) Not detected, Coronavirus HKU1 (PCR) Not detected, Coronavirus 229E (PCR) Not detected, SARS-CoV-2 (PCR) Not detected 01/22/24 13:40: SARS-CoV-2 (PCR) Not detected, Coronavirus NL63 (PCR) Not detected, Human Metapneumovir PCR Not detected, Influenza A (H1) PCR Not detected, Influ A (H1N1/09) PCR Not detected, Influenza A (H3) PCR Not detected, Influenza Type A (PCR) Not detected, Influenza A Untype (PCR) Not detected, Influenza Type B (PCR) Not detected 01/22/24 13:40: Influenza Type B (PCR) Not detected, M. pneumoniae (PCR) Not detected, Parainfluenza 1 (PCR) Not detected, Parainfluenza 2 (PCR) Not detecte d, Parainfluenza 3 (PCR) Not detected, Parainfluenza 4 (PCR) Not detected, RSV (PCR) Not detected, Entero/Rhino (PCR) Not detected 01/22/24 15:45: Specimen Source Left radial, O2 % 40, ABG pH 7.24 L*, ABG pCO2 71.1 H, ABG pO2 69.3 L, ABG HCO3 29.7 H, ABG Total CO2 31.9 H, ABG O2 Saturation 93, ABG Base Excess 2.3, Allan Test Acceptable, Vent Rate 20 01/22/24 16:30: Troponin I 0.06 H 01/22/24 18:37: POC Glucose 103 01/22/24 20:07: Troponin I 0.06 H 01/22/24 22:43: POC Glucose 113 H 01/23/24 06:24: POC Glucose 102 01/23/24 06:40: Sodium 137, Potassium 4.9, Chloride 100, Carbon Dioxide 35 H, Anion Gap 6.9, BUN 58 H, Creatinine 2.00 H, Estimated Creat Clear 24, Estimated GFR 25 L, Est GFR ( Amer) 30 L, Glucose 97 D, Calcium 8.3 L, Magnesium 2.3, Total Bilirubin 0.4, AST 25 D, ALT 16 D, Alkaline Phosphatase 109, Total Protein 6.0 L, Albumin 3.0 L D, Globulin 3.0, Albumin/Globulin Ratio 1.0 L I & O for Labs for Last 24 Hours: Intake & Output 01/20/24 01/21/24 01/22/24 01/23/24 23:59 23:59 23:59 23:59 Intake Total 0 / 0 Output Total 1251 / 1751 800 / 800 Balance -1251 / -1751 -800 / -800 Weight 141.719 kg 140.9 kg Constitutional: Present no acute distress, morbidly obese, chronically ill appearing and cooperative Head: Present atraumatic and normocephalic ENT: Present normal exam Neck: Present normal inspection Respiratory: Present accessory muscle use, prolonged expiratory phase and crackles (bases); Absent rhonchi or wheezes Cardiac: Present Reg Rate and Rhythm GI: Present soft and normal bowel sounds; Absent distention or tenderness Comment:: Pérez in place Extremities: Present normal inspection, full ROM and edema (3+ in BLE to thighs, however improving ) Skin: Present intact; Absent erythema Comment:: dry, scale on BLE Neuro: Present Grossly Intact, alert, awake and moves all extremities Comment:: Oriented to self and place Assessment and Plan *Assessment and plan (1) Acute on chronic heart failure with preserved ejection fraction (HFpEF): Status: Acute Category: Medical Code(s): I50.33 - Acute on chronic diastolic (congestive) heart failure (2) Acute on chronic respiratory failure with hypoxia and hypercapnia: Status: Acute Category: Medical Code(s): J96.21 - Acute and chronic respiratory failure with hypoxia; J96.22 - Acute and chronic respiratory failure with hypercapnia (3) Obesity hypoventilation syndrome: Status: Acute Category: Medical Code(s): E66.2 - Morbid (severe) obesity with alveolar hypoventilation (4) BMI 50.0-59.9, adult: Status: Acute Category: Medical Code(s): Z68.43 - Body mass index [BMI] 50.0-59.9, adult (5) CKD (chronic kidney disease) stage 4, GFR 15-29 ml/min: Status: Acute Category: Medical Code(s): N18.4 - Chronic kidney disease, stage 4 (severe) (6) Tobacco dependence: Status: Acute Category: Medical Code(s): F17.200 - Nicotine dependence, unspecified, uncomplicated (7) Mood disorder: Status: Acute Category: Medical Code(s): F39 - Unspecified mood [affective] disorder (8) Seizure disorder: Status: Acute Category: Medical Code(s): G40.909 - Epilepsy, unspecified, not intractable, without status epilepticus (9) Bedbug bite: Status: Acute Category: Medical Code(s): W57.XXXA - Bitten or stung by nonvenomous insect and other nonvenomous arthropods, initial encounter (10) Major depression: Status: Chronic Qualifiers: Active/Remission status: currently active Major depression episode severity: severe Major depression recurrence: recurrent Psychotic features: with psychotic features Qualified Code(s): F33.3 - Major depressive disorder, recurrent, severe with psychotic symptoms Category: Medical Code(s): F32.9 - Major depressive disorder, single episode, unspecified Plan Patient is a 63-year-old female with chronic history of tobacco dependence, obstructive sleep apnea/BMI 52/OHS/COPD overlap on 2 L of oxygen at home who presents with shortness of air with a chronic history of heart failure with preserved ejection fraction with most recent echo EF 60%. She has chronic kidney disease stage IV with a baseline creatinine 1.6 and identified history of medical noncompliance. Presented to the ER because of worsening shortness of breath. Found to be hypercapnic in the ER with hypercapnic respiratory failure. Initiated on BiPAP due to her respiratory acidosis and confusion. Discussed case with ER physician, request admission for treatment of possible pneumonia, volume overload, hypercapnic respiratory failure. I agreed to admit for further management. De-escalating to MedSurg today. Wore BiPAP overnight with good response. Continues to require inpatient management. Problems addressed as follows: Acute on chronic hypoxic and hypercapnic respiratory failure Tobacco dependence BMI 52/OHS/COPD overlap Home oxygen requirement 1-2 L via nasal cannula; increased oxygen requirement and elevated CO2 in the ER. White count low at 4.7. pH 7.11 on VBG with pCO2 of 87. Initiated on BiPAP in the ER. Pulmonology consulted to assist with BiPAP management. Chest CT with no focal consolidation. Does not have any effusions per my review. Does have some pulmonary scarring noted. -Reports she is not wearing BiPAP at home. Has been worked up previously for home BiPAP. Will clarify with [employer] as to whether patient has 1 at home. -Numerous admissions in the past for hypercapnic respiratory failure due to her obesity hypoventilation syndrome. likely secondary to not having BiPAP at home and recurrent hypercapnia at night due to her COPD and obesity. -ABG in the morning; overnight pulse ox. Will take a break from BiPAP tonight. See if patient qualifies for home BiPAP. -DuoNebs every 6 hours scheduled, Trelegy inhaler daily -Comprehensive respiratory panel negative. Acute on chronic HFpEF (class C/NYHA IV) - Bumex 1 mg twice daily. Frankly volume overloaded with significant peripheral edema. -Strict I's and O's; negative at least 2 L today - CBC, CMP, magnesium ordered for the morning. drug therapy requiring intensive monitoring for toxicity Beta-christofer therapy Aldosterone antagonist therapy Avoiding SGLT2 inhibitor therapy with CKD 4 Avoiding ARNI therapy with CKD 4 Echo (06/20/2023): EF 55% Nicotine dependence: Tobacco cessation education; NRT Chronic kidney disease stage IV Baseline creatinine 1.7-2.0. Creatinine 2.0 today, BUN 58. repeat CBC, CMP, magnesium ordered for the morning; monitor for progressive bump as she approaches euvolemia. Mood disorder Routine nursing interaction Continue BuSpar 20 mg daily; Abilify 5 mg daily, trazodone 100 mg nightly, and venlafaxine 75 mg daily Seizure disorder Seizure precautions, Keppra per home regimen with 500 mg twice daily PT and OT evaluated because of deconditioning. Recommend placement. VTE prophylaxis: Heparin CODE STATUS: Full code POA/HCS: Harsh- The length of stay for this patient will be 2 midnights or greater due to above diagnoses.
[2024-01-23 08:28] LABS: Hemoglobin 10.2 g/dL (12.2-16.2)
[2024-01-23] MEDS: HEPARIN SODIUM 5,000 UNIT/ML VIAL 5000 UNIT SQ ×2 (08:30→13:59)
[2024-01-23] MEDS: BUSPIRONE HCL 10 MG TABLET 20 MG PO (08:30)
[2024-01-23] MEDS: BUMETANIDE 1MG/4ML VIAL 1 MG IV ×2 (08:30→16:05)
[2024-01-23] MEDS: NICOTINE 21MG/24HR PATCH 21 MG TD (08:30)
[2024-01-23] MEDS: VENLAFAXINE XR 75MG CAPSULE 75 MG PO (08:30)
[2024-01-23] MEDS: levETIRAcetam 500 MG TABLET PO ×2 (08:30→21:17)
[2024-01-23] MEDS: ARIPiprazole 10MG TABLET 5 MG PO (08:31)
[2024-01-23] MEDS: FLUTICASONE/UMECLIDIN/VILANTER 100/62.5/25MCG INHALER 1 PUFF IH (08:44)
--- NOTE | 2024-01-23 09:42 | PC.NURSE ---
NOTIFIED LAB ABOUT VBG ORDERED
[2024-01-23 10:02] LABS: Lactate Venous 1.4 mmol/L (0.4-2.0); VBG Base Excess 4.1 mmol/L (-2.4-2.3); VBG HCO3 28.7 mmol/L (23-30); VBG PCO2 46.7 mmol/L (35-51); VBG PH 7.41 mmol/L (7.31-7.41); VBG PO2 145.6 mmol/L (28-40); VBG Total CO2 30.2 mmol/L (23-27)
--- NOTE | 2024-01-23 11:19 | HMH.PTWOUND ---
Rehab Inpt Wound Evaluation Rehab IP Wound Evaluation Start: 01/22/24 18:47 Freq: ONCE Status: Active Protocol: Document 01/23/24 10:18 ALBA (Rec: 01/23/24 11:18 ALBA [id number]) Rehab PT Wound Assessment Subjective Subjective 63-year-old female well-known to our facility. Multiple comorbidities including diastolic heart failure, obesity hypoventilation syndrome, tobacco use disorder , morbid obesity, mood disorder. Presented to the ER because of worsening shortness of breath at home. She has very limited mobility at baseline and presents with 2 small wounds on her buttocks area that were present prior to her admission. Wound Left Buttock Wound Type Pressure Ulcer Is This a Chronic Wound Yes Wound Staging Stage II Query Text:Stage I - Unbroken, red skin, no blanching. Stage II - Skin broken, superficial skin loss involving epidermis alone or also dermis. Partial loss of skin layers. Stage III - Pressure area involves epidermis, dermis and subcutaneous tissue, full thickness skin loss. Stage IV - Pressure area involves epidermis, subcutaneous tissue, bone and other supportive tissue. Full thickness skin loss with extensive destruction of underlying tissue and structures. Wound Length (cm) 0.5 Wound Width (cm) 0.5 Wound Depth (cm) 0.1 Wound Bed Appearance [place] Wound Margins Description Well Defined Drainage Amount None Primary Dressing Composite Comment bordered foam Dressing Change Patient Tolerance Tolerated Well Plan/Recommendation Comment Wounds are essentially dry with minimal drainage if any at this time. Nursing staff currently has appropriate dressings applied and there is no current need for extensive debridement. Nsg staff also providing appropriate pressure relief as per protocols. Eval Complexity Eval Charge Codes 49997 - High Complexity PHYSICIAN CERTIFICATION: I certify the specified therapy services for Destiny Diaz are required, authorized, and reviewed every 30 days.
--- NOTE | 2024-01-23 11:36 | SW/DCPLANNER ---
Addendum entered by Meghan Swain 01/23/24 13:16: Per [facility] this case does meet criteria for investigation. Original Note: Due to patient's currently living conditions I did call and make a report to [facility] (ID#[id number]). Patient currently resides at home w/ , home is infested w/ bedbugs and cockroaches, patient has been placed LTC several times in the past but will signed her out AMA, multiple stage 1 sores on bottom and hip area, hospital readmissions, unable to complete ADL's, unable to provide resources at home due to living conditions and concern for patient's wellbeing at home. I will follow up w/ [facility] once reviewed. PT/OT is ordered to evaluate patient today and I will follow up regarding discharge plans. Discharge date is unknown at this time.
--- NOTE | 2024-01-23 11:56 | HMH.PHAINT1 ---
Pharmacy Intervention Comments: MEDICATION RECONCILIATION COMPLETED ON PATIENT USING EXTERNAL FILL HISTORY FROM PHARMACY. -MILLICENT PONCE, AYLEEND
[2024-01-23 11:57] LABS: POC Glucose,Bedside 94 (70-110)
--- NOTE | 2024-01-23 14:12 | HMH.PTEV ---
Physical Therapy Evaluation Rehab PT IP Evaluation Start: 01/23/24 10:18 Freq: ONCE Status: Active Protocol: Document 01/23/24 14:01 ASHLEY (Rec: 01/23/24 14:11 ASHLEY [id number]) Subjective/History History History Per H&P: Ms. Diaz is a 63- year-old female well-known to our facility. Multiple comorbidities including diastolic heart failure, obesity hypoventilation syndrome, tobacco use disorder , morbid obesity, mood disorder. Presented to the ER because of worsening shortness of breath at home. Found to be hypercapnic in the ER. Placed on BiPAP prior to my interview. Medicine consulted for admission and further management. Necessitating ICU level of care. Pulmonology consulted to assist with treatment. Patient alert, knows her name and where she is. Is confused from baseline but able to answer simple yes/no questions . Appears in mild distress. Continuing BiPAP overnight. With normal white count, no indication for antibiotics at this time. Does not appear to have pneumonia on imaging. Appears to have purely hypercapnic respiratory failure likely secondary to COPD and obesity hypoventilation. Comprehensive respiratory panel pending Subjective Subjective Pt reports she lives with her . Pt normally requires her husbands help (1-person assist) with all functional mobility. Pt uses a w/c and performs stand-pivot transfers . Pt uses a hospital bed and has a ramped entrance into her home. New diagnosis of cancer in past 12 No months? Rehab PT IP Eval Objective Appearance Patient Behavior Appropriate,Cooperative Patient Orientation Person Difficulty following instructions none Speech Pattern Clear Ambulation Patient Able to Ambulate No Balance Ability to Arise Unable Sitting Balance Steady, safe Standing Balance Unsteady Transfers Bed Transfer Ability Maximum x 2 (75% assist) Sit to Stand Bed Transfer Ability Moderate x 2 (50% assist) Rehab PT IP prob,goals,plan Problems Date of Evaluation: 01/23/24 PT IP Problems Bed Mobility,Transfers,Gait, Balance,Self care,Safety Rehab Potential Rehab Potential Good Plan PT Intervention Plan Bed Mobility,Transfers,Gait, Balance,Self care,Safety, Therapeutic Exercise Other Intervention Plan 1-2 times PT Plan Frequency Daily Duration LOS Discharge Goals Bed Transfer Ability Moderate x 2 (50% assist) Sit to Stand Chair Transfer Ability Moderate x 1 (50% assist) Discharge Plan PT Discharge Plan Initial physical therapy evaluation performed. Patient presents below baseline at this time in functional mobility, transfers, and strength. Pt not safe to return home at this time d/t current level of functional mobility. Pt requires a minimum of 2-person assist. PT recommending short-term rehabilitation stay upon d/c from [facility] to address deficits, maximize safety, and decrease caregiver burden. Pt would benefit from skilled PT while at [facility] to prevent further functional decline and maximize safety with mobility. Eval Complexity Eval Charge Codes 58346 - High Complexity PHYSICIAN CERTIFICATION: I certify the specified therapy services for Destiny Diaz are required, authorized, and reviewed every 30 days.
--- NOTE | 2024-01-23 14:15 | HMH.OTEV ---
OT Inpatient Evaluation Rehab OT IP Evaluation Start: 01/23/24 10:18 Freq: ONCE Status: Active Protocol: Document [facility]/23/24 13:[facility] (Rec: 01/23/24 14:15 [facility] [id number]) Rehab OT IP Assessment Subjective History Pt oriented x 2 on arrival. Pt agreeable to engage in therapy evaluation. Pt admitted on 01/22/24 due to COPD exacerbation. History and Physical: Ms. Diaz is a 63-year-old female well-known to our facility. Multiple comorbidities including diastolic heart failure, obesity hypoventilation syndrome, tobacco use disorder , morbid obesity, mood disorder. Presented to the ER because of worsening shortness of breath at home. Found to be hypercapnic in the ER. Placed on BiPAP prior to my interview. Medicine consulted for admission and further management. Necessitating ICU level of care. Pulmonology consulted to assist with treatment. Patient alert, knows her name and where she is. Is confused from baseline but able to answer simple yes/no questions . Appears in mild distress. Continuing BiPAP overnight. With normal white count, no indication for antibiotics at this time. Does not appear to have pneumonia on imaging. Appears to have purely hypercapnic respiratory failure likely secondary to COPD and obesity hypoventilation. Comprehensive respiratory panel pending Subjective I have to have quite a bit of help. Prior to being in the hospital , pt lived at home with her . Pt claims recently she has been requiring assistance with most ADLs. She is able to feed herself, but requires assistance from her to dress and bathe . Pt is dependent upon for completion of IADLs. Normally, pt is able to complete stand pivot transfers to and from her wheelchair with assistance from her . However, recently she has not been able to transfer even with her husbands help. She is also oxygen dependent. Objective Patient Orientation Person,Birthday Right Upper Extremity Gross ROM Min Limitation <25% Left Upper Extremity Gross ROM Min Limitation <25% Shoulder ROM Limitations Muscle Weakness Elbow ROM Limitations Muscle Weakness Wrist Limitations of Range of Motion Muscle Weakness Bed Mobility bed mobility-scooting,bed mobility - supine/sit,bed mobility - rolling Assist Level Moderate x 2 (50% assist) Transfer Training Sit/Stand Transfer Assist Level Moderate x 2 (50% assist) Rehab OT IP prob,goals,plan Problems Date of Evaluation: 01/23/24 OT IP Problems Bed Mobility,Transfers,Balance ,Self care,Safety Rehab Potential Rehab Potential Good Equipment Needs Assistive Devices Rolling / Wheeled Walker, Wheelchair Plan OT intervention Plan Bed Mobility,Transfers,Balance ,Self care,Safety,Therapeutic Exercise OT Plan Frequency Daily Duration LOS Discharge Goals Bed Mobility Ability Assistance x1 Sit to Stand Chair Transfer Ability Moderate x 1 (50% assist) Chair Transfer Ability Moderate x 1 (50% assist) Chair Transfer Technique Stand Step Pivot Chair Transfer Assistive Devices Rolling Walker Feeding Ability Assist with Tray Set Up Lower Body Dressing Ability Moderate Assistance Upper Body Dressing Ability Minimal Assistance Bathing Ability Moderate Assistance Performing Toilet Hygiene Ability Moderate Assistance Overall Commode/Toilet Transfer Ability Moderate Assistance Commode/Toilet Transfer Technique Sit to/from Ambulatory Commode/Toilet Transfer Assistive Raised Toilet Seat,Grab Bars Devices Oral Care Assist Minimal Assistance Decrease in Endurance Yes Discharge Plan OT Discharge Plan Pt will continue to be seen for OT services while at [facility]. Pt would benefit most from short term rehab at SNF following discharge from hospital. Continued skilled therapy is important in order for patient to improve strength, safety, endurance, ADL independence, and functional transfers to reach PLOF. Eval Complexity Eval Charge Codes 97955 - Moderate Complexity PHYSICIAN CERTIFICATION: I certify the specified therapy services for Destiny Diaz are required, authorized, and reviewed every 30 days.
[2024-01-23 16:21] LABS: POC Glucose,Bedside 112 (70-110)
--- NOTE | 2024-01-23 18:17 | PC.NURSE ---
SPOKE WITH RT ABOUT OVERNIGHT O2 SENSOR PER DR BRISCOE. SHE VERBALIZED UNDERSTANDING.
--- NOTE | 2024-01-23 18:28 | PC.NURSE ---
63 YEAR OLD FEMALE. A&OX4 THIS AFTERNOON. PT HAS TOLERATED 2L NC WELL THROUGHOUT SHIFT. RESPIRATIONS REGULAR AND UNLABORED. LUNG SOUNDS DIMINISHED THROUGHOUT. DRY, HACKING COUGH NOTED. PROVIDED PT WITH AN INCENTIVE SPIROMETER AND EDUCATED ON HOW TO USE IT. BEST NOTED AT 1000. PT TOLERATED WELL. ENCOURAGED TO USE 10 TIMES EVERY HOUR WHILE AWAKE. BED ALARM ON TO PROMOTE SAFETY. BED IN LOWEST POSITION. ACTIVE BOWEL SOUNDS HEARD IN ALL 4 QUADRANTS. SOFT AND NONTENDER ABDOMEN. NO BM THUS FAR. PT VOIDS PER PURWICK WITH CLEAR YELLOW URINE NOTED. MULTIPLE STAGE 1 PRESSURE ULCERS NOTED TO [facility]. DRESSING IN PLACE. CDI. PT TURNED Q2 HOURS TO PREVENT SKIN BREAKDOWN. HAND PRIMER ASSEMBLER EQUAL. +1 PULSES NOTED THROUGHOUT. VSS. CALL LIGHT WITHIN REACH. PT REFUSED TO HAVE HAIR WASHED TODAY. OFFERED TO GIVE A BED BATH AND A SHOWER.
[2024-01-23] MEDS: TRAZODONE 50MG TABLET 100 MG PO (21:16)
[2024-01-23] MEDS: ROPINIROLE 1MG TABLET 1 MG PO (21:16)
[2024-01-23] MEDS: PANTOPRAZOLE 40MG TABLET 40 MG PO (21:17)
[2024-01-24] VITALS (15 sets, daily range): BP systolic 91–139; BP diastolic 44–69; PULSE 63–85; RESP 13–24; TEMP 36.6–37; O2SAT 90–96; BMI 52.1
[2024-01-24 06:43] LABS: Albumin Level 3.1 g/dl (3.5-5.0); Chloride 102 mmol/L (98-107); Sodium 139 mmol/L (136-145)
[2024-01-24 06:44] LABS: Potassium 4.1 mmoL/L (3.5-5.1)
[2024-01-24 06:46] LABS: Alanine Aminotransferase 14 U/L (12-78); Anion Gap 5.1 mEq/L (5-15); Aspartate Amino Transferase 21 U/L (14-36); Blood Urea Nitrogen 58 mg/dl (7-17); Carbon Dioxide 36 mmol/L (22.0-30.0); Creatinine Clearance Estimated 23 mL/min (50-200); Estimated Glomerular Filt Rate 24 ml/min (>60); GFR (African American) 29 ML/MIN (>60); Total Protein,Serum 6.1 g/dl (6.3-8.2)
[2024-01-24 06:47] LABS: Alkaline Phosphatase 107 U/L (38-126); Bilirubin,Total 0.4 mg/dl (0.2-1.3); Calcium 8.3 mg/dl (8.4-10.2); Glucose 95 mg/dl (74-100); Magnesium 2.1 mg/dl (1.6-2.3)
[2024-01-24] MEDS: FLUTICASONE/UMECLIDIN/VILANTER 100/62.5/25MCG INHALER 1 PUFF IH (06:48)
[2024-01-24] MEDS: IPRATROPIUM/ALBUTEROL 3 ML NEB IH ×2 (06:48→11:44)
[2024-01-24 06:57] LABS: Basophils % 0.7 % (0.1-2.0); Eosinophils % 0.6 % (0.1-12.0); Hematocrit 33.5 % (37.0-47.0); Lymphocytes # 1.5 K/mm3 (0.7-4.5); Lymphocytes % 27.6 % (10-50); Mean Corpuscular HGB Conc 29.7 g/dL (31.8-35.4); Mean Corpuscular Hemoglobin 28.8 pg (27.0-31.2); Mean Corpuscular Volume 96.6 fl (81-99); Mean Platelet Volume 9.2 fl (7.4-10.4); Monocytes # 0.5 K/mm3 (0.1-1.0); Neutrophils # 3.2 K/mm3 (1.8-7.8); Neutrophils % 61.1 % (37.0-80.0); Platelet Count 167 K/mm3 (142-424); Red Blood Count 3.47 M/mm3 (4.20-5.40); Red Cell Distribution Width 15.2 % (11.5-17.5); White Blood Count 5.3 K/mm3 (4.8-10.8)
[2024-01-24 07:09] LABS: ABG Base Excess 7.7 mmol/L (-2.4-2.3); ABG HCO3 34.1 mmhg (22.0-26.0); ABG Oxygen Saturation 94 % (90-100); ABG PO2 78.1 mmhg (80-100); ABG TCO2 36.2 mmhg (23-27)
[2024-01-24 07:10] LABS: Allen's Test Acceptable; Oxygen 2.5L %; Source Right Brachial
[2024-01-24 07:11] LABS: ABG PCO2 70.2 mmhg (35.0-45.0)
[2024-01-24] MEDS: BUMETANIDE 1MG/4ML VIAL 1 MG IV ×2 (07:29→16:08)
[2024-01-24] MEDS: ARIPiprazole 10MG TABLET 5 MG PO (07:29)
[2024-01-24] MEDS: VENLAFAXINE XR 75MG CAPSULE 75 MG PO (07:29)
[2024-01-24] MEDS: BUSPIRONE HCL 10 MG TABLET 20 MG PO (07:29)
[2024-01-24] MEDS: levETIRAcetam 500 MG TABLET PO ×2 (07:29→21:42)
--- NOTE | 2024-01-24 08:11 | SW/DCPLANNER ---
Addendum entered by [facility] 01/28/24 09:15: Per insurance patient has been approved SNF level of care. Patient will discharge to [facility] SNF level of care today. Addendum entered by [facility] 01/28/24 09:01: Per Carly mcleod/ Kendrick Wu insurance has required a P2P. [facility] has updated [facility] regarding P2P. Addendum entered by [facility] 01/27/24 09:17: Updated patient information has been faxed to Carly mcleod/ Kendrick Wu. Carly confirmed that a bed is available and precert will be started today. Addendum entered by [facility] 01/24/24 14:52: [facility] is unable to accept patient. Patient is agreeable to [facility]:information has been faxed. I have updated MD regarding discharge plans. Addendum entered by [facility] 01/24/24 13:28: Carly mcleod/ Kendrick Wu stated that she is able to accept patient but will not have a bed till Saturday 02/03. Patient is agreeable for information to be faxed to Joann mcleod/ Ricardo Harman. Addendum entered by [facility] 01/24/24 13:15: Jaci mcleod/ MARITZA stated that she will speak w/ and see if additional resources can be provided at home. Per Jaci no further action per MARITZA at this time. Jaci [phone] Addendum entered by [facility] 01/24/24 11:10: Carly mcleod/ Kendrick Wu is reviewing patient information. Bren mcleod/ Shannon stated currently no beds available. I am also waiting to hear back from Alberta Hamran. Original Note: I spoke w/ patient this AM regarding plans once medically stable for discharge. PT/OT evaluated patient and recommended SNF level of care. Patient is agreeable to placement this AM at the following facilities: [facility], [facility] and [facility]. Patient information has been faxed to all three facilities and I will continue to follow up. Discharge date is unknown at this time.
[2024-01-24 09:15] LABS: HCV Ab Non Reactive (Non Reactive)
--- NOTE | 2024-01-24 10:15 | EXP.PULM.CON ---
History of Present Illness History of present illness: Ms. Diaz is a 63-year-old female with reported history of COPD, CKD stage IV, morbid obesity, heart failure presented to the ER with worsening respiratory distress found to be hypercarbic respiratory failure not needing noninvasive ventilator therapy pulmonary was called for further evaluation and management. Patient was off BiPAP overnight with morning ABG showed worsening hypercarbic respiratory failure. It is not clear whether patient has been using BiPAP or not at this point of time. [facility] Disclaimer: The information contained in this section may have been updated after the patient was seen, as this information can be updated by other users. Medical History (Updated 01/24/24 @ 11:19 by Armen Sheffield MD) Acute and chronic respiratory failure with hypercapnia Mood disorder Tobacco dependence CKD (chronic kidney disease) stage 4, GFR 15-29 ml/min BMI 50.0-59.9, adult Obesity hypoventilation syndrome Respiratory failure with hypoxia and hypercapnia Kidney stone History of back pain History of gastroesophageal reflux (GERD) Congestive heart failure Seizure disorder COPD (chronic obstructive pulmonary disease) Surgical History History of cholecystectomy History of section Family History Other Family history of acute congestive heart failure Family history of cancer Family history of myocardial infarction Social History Smoking Status: Current every day smoker tobacco type: cigarettes packs per day: 1 second hand exposure: Yes alcohol intake: never counseling given: No substance use type: denies use counseling given: No current occupational status: retired, disabled and other Travel in the last 8 weeks: None adopted: No caregiver/support person: No foster care: No household members: spouse housing: house marital status: 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; 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 pets and animals: Yes pets and animals: cat(s) Hx Recent Travel: No sexually active: No caffeine: Yes physical activity: none cony/pentecostalism: Yazidism special cony needs: No working smoke detector in home: Yes fire extinguisher in home: Yes carbon monox detector in home: No firearms in home: No do you feel safe at home: Yes victim of physical abuse: No victim of emotional abuse: No victim of sexual abuse: No would you like helpful sources: No Review of Systems Review of Systems Review of systems (narrative): Limited Constitutional Constitutional: Reports body ache(s) and Reports fatigue *Cardiovascular Cardiovascular: Reports dyspnea and Reports dyspnea on exertion *Respiratory Respiratory: Denies change in phlegm color, Reports chest congestion, Reports cough, Reports dyspnea, Reports dyspnea on exertion, Denies excessive phlegm production, Denies hemoptysis, Denies pain on inspiration, Denies pain with cough and Denies wheezing *Gastrointestinal Gastrointestinal: Denies abdominal pain, Denies belching and Denies cramping *Musculoskeletal Musculoskeletal: Reports back pain, Reports myalgias and Reports other (No small joint swelling or Pain) Psychiatric Psychiatric: Denies homicidal ideation and Denies suicidal ideation Endocrine Endocrine: Reports fatigue and Denies heat intolerance Hematologic/Lymphatic Hematologic/Lymphatic: Denies easy bleeding and Denies lymphadenopathy Allergic/Immunologic Allergic/Immunologic: Denies wheezing Pulmonology Exam Inpatient Vital signs and Labs for Last 24 Hours: Temp Pulse Resp BP Pulse Ox O2 Del Method O2 Flow Rate 98.0 F 63 23 117/60 95 BiPAP 2 01/24/24 07:57 01/24/24 09:00 01/24/24 09:00 01/24/24 09:00 01/24/24 09:00 01/24/24 09:03 01/24/24 08:00 FiO2 30 01/24/24 08:20 Laboratory Results - last 24 hr 01/22/24 13:35: Hepatitis C Antibody Non reactive 01/23/24 11:50: POC Glucose 94 01/23/24 16:01: POC Glucose 112 H 01/24/24 06:00: Specimen Source Right brachial, O2 % 2.5l, ABG pH 7.30 L, ABG pCO2 70.2 H, ABG pO2 78.1 L, ABG HCO3 34.1 H, ABG Total CO2 36.2 H, ABG O2 Saturation 94, ABG Base Excess 7.7 H, Allan Test Acceptable 01/24/24 06:09: WBC 5.3 D, RBC 3.47 L, Hgb 10.0 L, Hct 33.5 L, MCV 96.6, MCH 28.8, MCHC 29.7 L, RDW 15.2, Plt Count 167, MPV 9.2, Neut % (Auto) 61.1, Lymph % (Auto) 27.6, [place] % (Auto) 10.0 H, Eos % (Auto) 0.6, Baso % (Auto) 0.7, Neut # (Auto) 3.2, Lymph # (Auto) 1.5, [place] # (Auto) 0.5, Eos # (Auto) 0.0, Baso # (Auto) 0.0, Sodium 139, Potassium 4.1, Chloride 102, Carbon Dioxide 36 H, Anion Gap 5.1, BUN 58 H, Creatinine 2.10 H, Estimated Creat Clear 23, Estimated GFR 24 L, Est GFR ( Amer) 29 L, Glucose 95, Calcium 8.3 L, Magnesium 2.1, Total Bilirubin 0.4, AST 21, ALT 14, Alkaline Phosphatase 107, Total Protein 6.1 L, Albumin 3.1 L, Globulin 3.0, Albumin/Globulin Ratio 1.0 L I & O for Labs for Last 24 Hours: Intake & Output 01/21/24 01/22/24 01/23/24 01/24/24 23:59 23:59 23:59 23:59 Intake Total 1200 / 1200 100 / 100 Output Total 1251 / 1751 1750 / 2275 775 / 775 Balance -1251 / -1751 -550 / -1075 -675 / -675 Weight 312 lb 6.99 oz 310 lb 10.101 oz 312 lb 11.2 oz Microbiology Reports for the Last 24 Hours: Microbiology 01/22/24 13:30 Blood Blood Culture - Preliminary NO GROWTH AFTER 24 HOURS 01/22/24 13:30 Blood Blood Culture - Preliminary NO GROWTH AFTER 24 HOURS Constitutional: Present severe distress Head: Present normocephalic and atraumatic ENT: Present normal exam, normal oropharynx and mucous membranes moist Neck: Present normal inspection and full ROM Respiratory: Present prolonged expiratory phase, respiratory distress and diminished air movement; Absent wheezes, crackles or able to speak in complete sentences Cardiac: Present S1/S2, Tachycardia and radial pulses present GI: Present soft and distention; Absent tenderness or guarding Rectal (female): Present deferred (female): Present deferred Skin: Present intact; Absent cyanosis or jaundice Neuro: Present awake; Absent alert or oriented x 3 Extremities: Present normal inspection; Absent clubbing or cyanosis Psychiatric: Present normal affect and cooperative Meds Home Medications and Allergies Home Medications ?Medication ?Instructions ?Recorded ?Confirmed ?Type levetiracetam 500 mg tablet 500 mg PO BID 01/26/21 01/23/24 History magnesium oxide 400 mg (241.3 mg 400 mg PO DAILY 08/23/21 01/23/24 History magnesium) tablet multivitamin 1 each PO DAILY 08/23/21 01/23/24 History ropinirole 1 mg tablet 1 mg PO HS 08/23/21 01/23/24 History trazodone 100 mg tablet 100 mg PO HS 08/07/22 01/23/24 History cholecalciferol (vitamin D3) 125 125 mcg PO DAILY 06/20/23 01/23/24 History mcg (5,000 unit) capsule omeprazole 40 mg capsule,delayed 40 mg PO DAILY 06/20/23 01/23/24 History release venlafaxine 75 mg tablet 75 mg PO DAILY 06/20/23 01/23/24 History nitroglycerin 0.4 mg sublingual 0.4 mg sublingual Q5MINP PRN Chest 08/09/23 01/23/24 History tablet Pain bisoprolol fumarate 5 mg tablet 5 mg PO DAILY 30 days #30 tabs 09/07/23 01/23/24 Rx spironolactone 25 mg tablet 25 mg PO DAILY 30 days #30 tabs 09/07/23 01/23/24 Rx albuterol sulfate 90 mcg/actuation 2 puff inhalation Q6HP PRN 01/23/24 01/23/24 History aerosol inhaler Shortness Of Breath bumetanide 1 mg tablet 1 mg PO Q48H 01/23/24 01/23/24 History New Prescriptions to Start Prescriptions: Allergies Allergy/AdvReac Type Severity Reaction Status Date / Time Penicillins Allergy Verified 08/09/23 06:26 Results Laboratory Findings 01/24/24 06:09 01/24/24 06:09 ABG ABG pH 7.30 mmol/L (7.35-7.45) L 01/24/24 06:00 ABG pCO2 70.2 mmhg (35.0-45.0) H 01/24/24 06:00 ABG pO2 78.1 mmhg (80-100) L 01/24/24 06:00 ABG O2 Saturation 94 % (90-100) 01/24/24 06:00 PT/INR, D-dimer D-Dimer 1.06 ug/mL (0.0-0.5) H 01/22/24 13:35 Abnormal lab findings: Abnormal Labs 01/22/24 01/22/24 01/22/24 13:29 13:35 15:45 WBC 4.7 L RBC 3.99 L Hgb 11.9 L Hct MCV 99.3 H MCHC 30.0 L [place] % (Auto) D-Dimer 1.06 H ABG pH 7.24 L* ABG pCO2 71.1 H ABG pO2 69.3 L ABG HCO3 29.7 H ABG Total CO2 31.9 H ABG Base Excess VBG pH 7.11 L VBG pCO2 87.1 H VBG pO2 63.0 H VBG Total CO2 29.7 H VBG O2 Saturation 88.2 H VBG Base Excess -2.5 L Carbon Dioxide 35 H BUN 69 H Creatinine 2.30 H Estimated GFR 21 L Est GFR ( Amer) 26 L Glucose 127 H POC Glucose Calcium AST 40 H Troponin I 0.07 H Total Protein Albumin Globulin 3.5 H Albumin/Globulin Ratio 01/22/24 01/22/24 01/22/24 16:30 20:07 22:43 WBC RBC Hgb Hct MCV MCHC [place] % (Auto) D-Dimer ABG pH ABG pCO2 ABG pO2 ABG HCO3 ABG Total CO2 ABG Base Excess VBG pH VBG pCO2 VBG pO2 VBG Total CO2 VBG O2 Saturation VBG Base Excess Carbon Dioxide BUN Creatinine Estimated GFR Est GFR ( Amer) Glucose POC Glucose 113 H Calcium AST Troponin I 0.06 H 0.06 H Total Protein Albumin Globulin Albumin/Globulin Ratio 01/23/24 01/23/24 01/23/24 06:40 09:50 16:01 WBC 4.0 L RBC 3.45 L Hgb 10.2 L D Hct 33.6 L MCV MCHC 30.5 L [place] % (Auto) 9.6 H D-Dimer ABG pH ABG pCO2 ABG pO2 ABG HCO3 ABG Total CO2 ABG Base Excess VBG pH VBG pCO2 VBG pO2 145.6 H VBG Total CO2 30.2 H VBG O2 Saturation 99.0 H VBG Base Excess 4.1 H Carbon Dioxide 35 H BUN 58 H Creatinine 2.00 H Estimated GFR 25 L Est GFR ( Amer) 30 L Glucose POC Glucose 112 H Calcium 8.3 L AST Troponin I Total Protein 6.0 L Albumin 3.0 L D Globulin Albumin/Globulin Ratio 1.0 L 01/24/24 01/24/24 06:00 06:09 WBC RBC 3.47 L Hgb 10.0 L Hct 33.5 L MCV MCHC 29.7 L [place] % (Auto) 10.0 H D-Dimer ABG pH 7.30 L ABG pCO2 70.2 H ABG pO2 78.1 L ABG HCO3 34.1 H ABG Total CO2 36.2 H ABG Base Excess 7.7 H VBG pH VBG pCO2 VBG pO2 VBG Total CO2 VBG O2 Saturation VBG Base Excess Carbon Dioxide 36 H BUN 58 H Creatinine 2.10 H Estimated GFR 24 L Est GFR ( Amer) 29 L Glucose POC Glucose Calcium 8.3 L AST Troponin I Total Protein 6.1 L Albumin 3.1 L Globulin Albumin/Globulin Ratio 1.0 L Assessment and Plan *Assessment and plan (1) Obesity hypoventilation syndrome: Status: Acute Category: Medical Code(s): E66.2 - Morbid (severe) obesity with alveolar hypoventilation (2) Acute and chronic respiratory failure with hypercapnia: Status: Acute Category: Medical Code(s): J96.22 - Acute and chronic respiratory failure with hypercapnia Plan Ms. Diaz is a 63-year-old female with reported history of COPD, CKD stage IV, morbid obesity, heart failure presented to the ER with worsening respiratory distress found to be hypercarbic respiratory failure not needing noninvasive ventilator therapy pulmonary was called for further evaluation and management. Patient was off BiPAP overnight with morning ABG showed worsening hypercarbic respiratory failure. It is not clear whether patient has been using BiPAP or not at this point of time. CT chest upon admission, upper lobe interstitial changes left greater than right. No other consolidative/fibrotic changes noted. No significant emphysema appreciated. Afebrile. Hemodynamically stable. No significant leukocytosis. Respiratory viral PCR panel negative. Hospital admission July 2023 for pneumonia and hypercarbic respiratory failure. Patient was discharged home on BiPAP therapy. Continue to receive nebulization therapies. Plan: Continue BiPAP therapy at 8/18 and a rate of 18 and FiO2 of 30%. Will follow-up with social work as patient was supposed to be using BiPAP therapy at night from her prior discharge from July 2023. DuoNebs 4 times daily as needed Establish care with sleep clinic as an outpatient basis.
--- NOTE | 2024-01-24 10:34 | P.PN_ITS ---
Subjective *Date: 01/24/24 *Time: 13:49 Interval history: Patient stayed off BiPAP overnight. Pulse ox obtained. Showed significant desaturations into the 80s. Greater than 120 minutes of sats less than 88%. Mild confusion this morning. Placed back on BiPAP due to her pCO2 of 70. Kj erating p.o. intake. Afebrile. No nausea or vomiting. Awaiting placement. Medical Exam Vital signs and Labs for Last 24 Hours: Vital Signs Temp Pulse Pulse Resp BP Pulse Ox O2 Del Method 01/24/24 09:03 BiPAP 01/24/24 09:00 63 23 117/60 95 BiPAP 01/24/24 08:20 01/24/24 08:00 71 22 91/46 L 94 L Nasal Cannula 01/24/24 07:57 98.0 F 01/24/24 07:38 Nasal Cannula 01/24/24 06:47 Nasal Cannula 01/24/24 06:46 94 L Nasal Cannula 01/24/24 06:00 67 13 112/58 L 94 L Nasal Cannula 01/24/24 05:00 Nasal Cannula 01/24/24 04:00 64 01/24/24 04:00 70 15 100/55 L 91 L Nasal Cannula 01/24/24 04:00 90 L Nasal Cannula 01/24/24 04:00 97.8 F 01/24/24 03:00 Nasal Cannula 01/24/24 02:00 70 16 105/61 L 96 Nasal Cannula 01/24/24 01:00 Nasal Cannula 01/24/24 00:00 80 01/24/24 00:00 83 15 139/69 95 Nasal Cannula 01/23/24 23:15 Nasal Cannula 01/23/24 22:00 79 15 106/51 L 92 L Nasal Cannula 01/23/24 21:15 Nasal Cannula 01/23/24 20:00 93 L Nasal Cannula 01/23/24 20:00 98.7 F 01/23/24 20:00 86 14 87/43 L 90 L Nasal Cannula 01/23/24 19:56 81 01/23/24 18:42 Nasal Cannula 01/23/24 18:19 79 01/23/24 18:19 84 01/23/24 18:19 94 L Nasal Cannula 01/23/24 18:00 83 20 118/63 92 L Nasal Cannula 01/23/24 17:05 Nasal Cannula 01/23/24 16:15 91 L Nasal Cannula 01/23/24 16:00 83 16 102/51 L 91 L Nasal Cannula 01/23/24 16:00 90 01/23/24 16:00 97.8 F 01/23/24 15:20 Nasal Cannula 01/23/24 14:00 80 18 104/53 L 91 L Nasal Cannula 01/23/24 13:10 Nasal Cannula 01/23/24 12:00 80 01/23/24 12:00 73 18 106/54 L 91 L Nasal Cannula 01/23/24 11:17 72 01/23/24 11:17 76 01/23/24 11:17 78 L Nasal Cannula 01/23/24 11:05 Nasal Cannula O2 Flow Rate FiO2 01/24/24 09:03 01/24/24 09:00 01/24/24 08:20 30 01/24/24 08:00 2 01/24/24 07:57 01/24/24 07:38 2 01/24/24 06:47 2 01/24/24 06:46 2.5 01/24/24 06:00 2 01/24/24 05:00 2 01/24/24 04:00 01/24/24 04:00 2 01/24/24 04:00 2 01/24/24 04:00 01/24/24 03:00 2 01/24/24 02:00 2 01/24/24 01:00 2 01/24/24 00:00 01/24/24 00:00 2 01/23/24 23:15 2 01/23/24 22:00 2 01/23/24 21:15 2 01/23/24 20:00 2 01/23/24 20:00 01/23/24 20:00 2 01/23/24 19:56 01/23/24 18:42 2 01/23/24 18:19 01/23/24 18:19 01/23/24 18:19 2 01/23/24 18:00 2 01/23/24 17:05 2 01/23/24 16:15 2 01/23/24 16:00 2 01/23/24 16:00 01/23/24 16:00 01/23/24 15:20 2 01/23/24 14:00 2 01/23/24 13:10 2 01/23/24 12:00 01/23/24 12:00 2 01/23/24 11:17 01/23/24 11:17 01/23/24 11:17 1 01/23/24 11:05 2 Intake and Output 01/23/24 01/24/24 01/24/24 23:59 07:59 15:59 Intake Total 480 / 1200 100 / 100 Output Total 600 / 2275 525 / 775 250 / 775 Balance -120 / -1075 -425 / -675 -250 / -675 Intake: Intake, Oral Amount 480 / 1200 100 / 100 Output: Output, Urine Amount 600 / 2275 525 / 775 250 / 775 Other: Number of Unmeasured Voids 0 1 Weight 141.838 kg Patient Weight 01/24/24 23:59 Weight 141.838 kg Laboratory Results - last 24 hr 01/22/24 13:35: Hepatitis C Antibody Non reactive 01/23/24 11:50: POC Glucose 94 01/23/24 16:01: POC Glucose 112 H 01/24/24 06:00: Specimen Source Right brachial, O2 % 2.5l, ABG pH 7.30 L, ABG pCO2 70.2 H, ABG pO2 78.1 L, ABG HCO3 34.1 H, ABG Total CO2 36.2 H, ABG O2 Saturation 94, ABG Base Excess 7.7 H, Allan Test Acceptable 01/24/24 06:09: WBC 5.3 D, RBC 3.47 L, Hgb 10.0 L, Hct 33.5 L, MCV 96.6, MCH 28.8, MCHC 29.7 L, RDW 15.2, Plt Count 167, MPV 9.2, Neut % (Auto) 61.1, Lymph % (Auto) 27.6, [place] % (Auto) 10.0 H, Eos % (Auto) 0.6, Baso % (Auto) 0.7, Neut # (Auto) 3.2, Lymph # (Auto) 1.5, [place] # (Auto) 0.5, Eos # (Auto) 0.0, Baso # (Auto) 0.0, Sodium 139, Potassium 4.1, Chloride 102, Carbon Dioxide 36 H, Anion Gap 5.1, BUN 58 H, Creatinine 2.10 H, Estimated Creat Clear 23, Estimated GFR 24 L, Est GFR ( Amer) 29 L, Glucose 95, Calcium 8.3 L, Magnesium 2.1, Total Bilirubin 0.4, AST 21, ALT 14, Alkaline Phosphatase 107, Total Protein 6.1 L, Albumin 3.1 L, Globulin 3.0, Albumin/Globulin Ratio 1.0 L I & O for Labs for Last 24 Hours: Intake & Output 01/21/24 01/22/24 01/23/24 01/24/24 23:59 23:59 23:59 23:59 Intake Total 1200 / 1200 100 / 100 Output Total 1251 / 1751 1750 / 2275 775 / 775 Balance -1251 / -1751 -550 / -1075 -675 / -675 Weight 141.719 kg 140.9 kg 141.838 kg Microbiology Reports for the Last 24 Hours: Microbiology 01/22/24 13:30 Blood Blood Culture - Preliminary NO GROWTH AFTER 24 HOURS 01/22/24 13:30 Blood Blood Culture - Preliminary NO GROWTH AFTER 24 HOURS Constitutional: Present no acute distress, morbidly obese, chronically ill appearing and cooperative Head: Present atraumatic and normocephalic ENT: Present normal exam Neck: Present normal inspection Respiratory: Present accessory muscle use, prolonged expiratory phase and crackles (bases); Absent rhonchi or wheezes Cardiac: Present Reg Rate and Rhythm GI: Present soft and normal bowel sounds; Absent distention or tenderness Comment:: Pérez in place Extremities: Present normal inspection, full ROM and edema (3+ in BLE to thighs, however improving ) Skin: Present intact; Absent erythema Comment:: dry, scale on BLE Neuro: Present Grossly Intact, alert, awake and moves all extremities Comment:: Oriented to self and place Assessment and Plan *Assessment and plan (1) Acute on chronic heart failure with preserved ejection fraction (HFpEF): Status: Acute Category: Medical Code(s): I50.33 - Acute on chronic diastolic (congestive) heart failure (2) Acute on chronic respiratory failure with hypoxia and hypercapnia: Status: Acute Category: Medical Code(s): J96.21 - Acute and chronic respiratory failure with hypoxia; J96.22 - Acute and chronic respiratory failure with hypercapnia (3) Obesity hypoventilation syndrome: Status: Acute Category: Medical Code(s): E66.2 - Morbid (severe) obesity with alveolar hypoventilation (4) BMI 50.0-59.9, adult: Status: Acute Category: Medical Code(s): Z68.43 - Body mass index [BMI] 50.0-59.9, adult (5) CKD (chronic kidney disease) stage 4, GFR 15-29 ml/min: Status: Acute Category: Medical Code(s): N18.4 - Chronic kidney disease, stage 4 (severe) (6) Tobacco dependence: Status: Acute Category: Medical Code(s): F17.200 - Nicotine dependence, unspecified, uncomplicated (7) Mood disorder: Status: Acute Category: Medical Code(s): F39 - Unspecified mood [affective] disorder (8) Seizure disorder: Status: Acute Category: Medical Code(s): G40.909 - Epilepsy, unspecified, not intractable, without status epilepticus (9) Bedbug bite: Status: Acute Category: Medical Code(s): W57.XXXA - Bitten or stung by nonvenomous insect and other nonvenomous arthropods, initial encounter (10) Major depression: Status: Chronic Qualifiers: Active/Remission status: currently active Major depression episode severity: severe Major depression recurrence: recurrent Psychotic features: with psychotic features Qualified Code(s): F33.3 - Major depressive disorder, recurrent, severe with psychotic symptoms Category: Medical Code(s): F32.9 - Major depressive disorder, single episode, unspecified Plan Patient is a 63-year-old female with chronic history of tobacco dependence, obstructive sleep apnea/BMI 52/OHS/COPD overlap on 2 L of oxygen at home who presents with shortness of air with a chronic history of heart failure with preserved ejection fraction with most recent echo EF 60%. She has chronic kidney disease stage IV with a baseline creatinine 1.6 and identified history of medical noncompliance. Presented to the ER because of worsening shortness of breath. Found to be hypercapnic in the ER with hypercapnic respiratory failure. Initiated on BiPAP due to her respiratory acidosis and confusion. Discussed case with ER physician, request admission for treatment of possible pneumonia, volume overload, hypercapnic respiratory failure. I agreed to admit for further management. Overnight pulse ox obtained and break from BiPAP last night. Patient had hypercapnia this morning on blood gas with significant desats overnight. Will necessitate BiPAP at discharge. Waiting acceptance to rehab. Continues to require inpatient management. Problems addressed as follows: Acute on chronic hypoxic and hypercapnic respiratory failure Tobacco dependence BMI 52/OHS/COPD overlap Home oxygen requirement 1-2 L via nasal cannula; increased oxygen requirement and elevated CO2 in the ER. -Pulmonology consulted, case this morning, patient qualifies for overnight BiPAP. Continue BiPAP therapy at 18/8 with a rate of 18 and FiO2 30%. DuoNebs every 6 hours scheduled. -Numerous admissions in the past for hypercapnic respiratory failure due to her obesity hypoventilation syndrome. likely secondary to not having BiPAP at home and recurrent hypercapnia at night due to her COPD and obesity. -ABG this morning with pH 7.3, pCO2 70, pO2 78. Qualifies for BiPAP. Over 120 minutes of desats below 88% on overnight pulse ox. - Home oxygen requirement 2 L via nasal cannula, continue as needed, goal sats greater 90%. Met criteria with ABG this morning on day of discharge with pCO2 above 52 (70) - Patient necessitating BiPAP due to hypercapnia related to her COPD. She does not have a working diagnosis of sleep apnea Acute on chronic HFpEF (class C/NYHA IV) - Bumex 1 mg twice daily. Frankly volume overloaded with significant peripheral edema. - Strict I's and O's; negative at least 2 L today - CBC, CMP, magnesium ordered for the morning. drug therapy requiring intensive monitoring for toxicity Beta-christofer therapy Aldosterone antagonist therapy Avoiding SGLT2 inhibitor therapy with CKD 4 Avoiding ARNI therapy with CKD 4 Echo (06/20/2023): EF 55% Nicotine dependence: Tobacco cessation education; NRT Chronic kidney disease stage IV Baseline creatinine 1.7-2.0. Creatinine 2.1 today, BUN 58. repeat CBC, CMP, magnesium ordered for the morning; monitor for progressive bump as she approac hes euvolemia. Mood disorder Routine nursing interaction Continue BuSpar 20 mg daily; Abilify 5 mg daily, trazodone 100 mg nightly, and venlafaxine 75 mg daily Seizure disorder Seizure precautions, Keppra per home regimen with 500 mg twice daily PT and OT evaluated because of deconditioning. Recommend placement. VTE prophylaxis: Heparin CODE STATUS: Full code POA/HCS: Harsh- The length of stay for this patient will be 2 midnights or greater due to above diagnoses.
--- NOTE | 2024-01-24 13:37 | EXP.EVENT.NO ---
Communicated with patient's in regard to visitation. He has been noted to have extensive bedbug infestation by multiple staff members each time he visits. Patient was decontaminated for bedbugs at time of admission. Found to have approximately 2 dozen bugs on her body at the time. has inconsistently been wearing diabetic suit when entering the facility and patient has been noted to have additional bugs in her room and on her person after each visit. It has been requested that patient's not visit in person. We will facilitate video chat's. Informed him that we will treat this infestation as a communicable disease and request he not visit in person unless infestation is managed/eradicated. Mr. Diaz stated understanding. Informed him we will facilitate to a communications if he chooses to call his or if she wants to communicate to him through either phone or video chat. Will also continue to communicate with him daily about her status and prognosis and discharge planning. Expressed concern about potential for infestation of facility and risk of spreading parasite to other patients within the facility. Phone call between myself and Mr. Diaz witnessed by dry house wheeler Jose Manuel Peoples.
[2024-01-24] MEDS: PANTOPRAZOLE 40MG TABLET 40 MG PO (21:42)
[2024-01-24] MEDS: TRAZODONE 50MG TABLET 100 MG PO (21:42)
[2024-01-24] MEDS: ROPINIROLE 1MG TABLET 1 MG PO (21:42)
[2024-01-25] VITALS (11 sets, daily range): BP systolic 111–128; BP diastolic 52–69; PULSE 67–83; RESP 15–22; TEMP 36.8–37.1; O2SAT 88–94; BMI 51.7
--- NOTE | 2024-01-25 07:02 | EXP.ACUTE.PN ---
Subjective *Date: 01/25/24 *Time: 14:33 Interval history: Alert and oriented this morning. Refused to wear BiPAP overnight. Ate breakfast. Stable on 2 L nasal cannula oxygen. No fever. No cough. Medical Exam Vital signs and Labs for Last 24 Hours: Vital Signs Temp Pulse Pulse Resp BP Pulse Ox O2 Del Method 01/25/24 06:55 Nasal Cannula 01/25/24 05:00 Nasal Cannula 01/25/24 04:00 67 01/25/24 04:00 98.2 F 77 20 118/69 88 L Nasal Cannula 01/25/24 03:00 BiPAP 01/25/24 02:07 01/25/24 01:00 BiPAP 01/25/24 00:00 75 01/25/24 00:00 98.2 F 75 22 116/62 93 L BiPAP 01/24/24 23:45 92 L BiPAP 01/24/24 23:45 01/24/24 23:00 Nasal Cannula 01/24/24 21:42 Nasal Cannula 01/24/24 21:00 Nasal Cannula 01/24/24 20:00 85 01/24/24 19:50 98.5 F 82 22 125/56 L 93 L Nasal Cannula 01/24/24 16:52 Nasal Cannula 01/24/24 16:00 80 01/24/24 16:00 98.6 F 77 18 99/52 L 92 L Nasal Cannula 01/24/24 15:08 Nasal Cannula 01/24/24 13:00 Nasal Cannula 01/24/24 12:00 80 01/24/24 12:00 78 24 91/44 L 95 Nasal Cannula 01/24/24 11:43 74 01/24/24 11:43 75 01/24/24 11:05 Nasal Cannula 01/24/24 09:03 BiPAP 01/24/24 09:00 63 23 117/60 95 BiPAP 01/24/24 08:20 01/24/24 08:00 65 01/24/24 08:00 71 22 91/46 L 94 L Nasal Cannula 01/24/24 07:57 98.0 F 01/24/24 07:38 Nasal Cannula O2 Flow Rate FiO2 01/25/24 06:55 3 01/25/24 05:00 3 01/25/24 04:00 01/25/24 04:00 2 01/25/24 03:00 01/25/24 02:07 30 01/25/24 01:00 01/25/24 00:00 01/25/24 00:00 01/24/24 23:45 30 01/24/24 23:45 30 01/24/24 23:00 2 01/24/24 21:42 2 01/24/24 21:00 2 01/24/24 20:00 01/24/24 19:50 01/24/24 16:52 2 01/24/24 16:00 01/24/24 16:00 2 01/24/24 15:08 2 01/24/24 13:00 2 01/24/24 12:00 01/24/24 12:00 2 01/24/24 11:43 01/24/24 11:43 01/24/24 11:05 2 01/24/24 09:03 01/24/24 09:00 01/24/24 08:20 30 01/24/24 08:00 01/24/24 08:00 2 01/24/24 07:57 01/24/24 07:38 2 Intake and Output 01/24/24 01/24/24 01/25/24 15:59 23:59 07:59 Intake Total 370 / 470 Output Total 700 / 1225 0 / 1225 400 / 400 Balance -330 / -755 0 / -755 -400 / -400 Intake: Intake, Oral Amount 370 / 470 Output: Output, Urine Amount 700 / 1225 0 / 1225 400 / 400 Other: Number of Unmeasured Voids 1 1 0 Number of Bowel Movements 1 Weight 141.838 kg 140.795 kg Patient Weight 01/25/24 23:59 Weight 140.795 kg Laboratory Results - last 24 hr 01/22/24 13:35: Hepatitis C Antibody Non reactive 01/24/24 06:00: Specimen Source Right brachial, O2 % 2.5l, ABG pH 7.30 L, ABG pCO2 70.2 H, ABG pO2 78.1 L, ABG HCO3 34.1 H, ABG Total CO2 36.2 H, ABG O2 Saturation 94, ABG Base Excess 7.7 H, Allan Test Acceptable I & O for Labs for Last 24 Hours: Intake & Output 01/22/24 01/23/24 01/24/24 01/25/24 23:59 23:59 23:59 23:59 Intake Total 1200 / 1200 470 / 470 Output Total 1251 / 1751 1750 / 2275 1225 / 1225 400 / 400 Balance -1251 / -1751 -550 / -1075 -755 / -755 -400 / -400 Weight 141.719 kg 140.9 kg 141.838 kg 140.795 kg Microbiology Reports for the Last 24 Hours: Microbiology 01/22/24 13:30 Blood Blood Culture - Preliminary NO GROWTH AFTER 48 HOURS 01/22/24 13:30 Blood Blood Culture - Preliminary NO GROWTH AFTER 48 HOURS Constitutional: Present no acute distress, morbidly obese, chronically ill appearing and cooperative Head: Present atraumatic and normocephalic ENT: Present normal exam Neck: Present normal inspection Respiratory: Present accessory muscle use, prolonged expiratory phase and crackles (bases); Absent rhonchi or wheezes Cardiac: Present Reg Rate and Rhythm GI: Present soft and normal bowel sounds; Absent distention or tenderness Comment:: Pérez in place Extremities: Present normal inspection, full ROM and edema (3+ in BLE to thighs, however improving ) Skin: Present intact; Absent erythema Comment:: dry, scale on BLE Neuro: Present Grossly Intact, alert, awake and moves all extremities Comment:: Oriented to self and place Assessment and Plan *Assessment and plan (1) Acute on chronic heart failure with preserved ejection fraction (HFpEF): Status: Acute Category: Medical Code(s): I50.33 - Acute on chronic diastolic (congestive) heart failure (2) Acute on chronic respiratory failure with hypoxia and hypercapnia: Status: Acute Category: Medical Code(s): J96.21 - Acute and chronic respiratory failure with hypoxia; J96.22 - Acute and chronic respiratory failure with hypercapnia (3) Obesity hypoventilation syndrome: Status: Acute Category: Medical Code(s): E66.2 - Morbid (severe) obesity with alveolar hypoventilation (4) BMI 50.0-59.9, adult: Status: Acute Category: Medical Code(s): Z68.43 - Body mass index [BMI] 50.0-59.9, adult (5) CKD (chronic kidney disease) stage 4, GFR 15-29 ml/min: Status: Acute Category: Medical Code(s): N18.4 - Chronic kidney disease, stage 4 (severe) (6) Tobacco dependence: Status: Acute Category: Medical Code(s): F17.200 - Nicotine dependence, unspecified, uncomplicated (7) Mood disorder: Status: Acute Category: Medical Code(s): F39 - Unspecified mood [affective] disorder (8) Seizure disorder: Status: Acute Category: Medical Code(s): G40.909 - Epilepsy, unspecified, not intractable, without status epilepticus (9) Bedbug bite: Status: Acute Category: Medical Code(s): W57.XXXA - Bitten or stung by nonvenomous insect and other nonvenomous arthropods, initial encounter (10) Major depression: Status: Chronic Qualifiers: Active/Remission status: currently active Major depression episode severity: severe Major depression recurrence: recurrent Psychotic features: with psychotic features Qualified Code(s): F33.3 - Major depressive disorder, recurrent, severe with psychotic symptoms Category: Medical Code(s): F32.9 - Major depressive disorder, single episode, unspecified Plan Patient is a 63-year-old female with chronic history of tobacco dependence, obstructive sleep apnea/BMI 52/OHS/COPD overlap on 2 L of oxygen at home who presents with shortness of air with a chronic history of heart failure with preserved ejection fraction with most recent echo EF 60%. She has chronic kidney disease stage IV with a baseline creatinine 1.6 and identified history of medical noncompliance. Presented to the ER because of worsening shortness of breath. Found to be hypercapnic in the ER with hypercapnic respiratory failure. Initiated on BiPAP due to her respiratory acidosis and confusion. Discussed case with ER physician, request admission for treatment of possible pneumonia, volume overload, hypercapnic respiratory failure. I agreed to admit for further management. Overnight pulse ox obtained and break from BiPAP last night. Patient had hypercapnia this morning on blood gas with significant desats overnight. Will necessitate BiPAP at discharge. Waiting acceptance to rehab. Continues to require inpatient management. Problems addressed as follows: Acute on chronic hypoxic and hypercapnic respiratory failure Tobacco dependence BMI 52/OHS/COPD overlap Home oxygen requirement 1-2 L via nasal cannula; increased oxygen requirement and elevated CO2 in the ER. -Pulmonology consulted, case this morning, patient qualifies for overnight BiPAP. Continue BiPAP therapy at 18/8 with a rate of 18 and FiO2 30%. DuoNebs every 6 hours scheduled. -Numerous admissions in the past for hypercapnic respiratory failure due to her obesity hypoventilation syndrome. likely secondary to not having BiPAP at home and recurrent hypercapnia at night due to her COPD and obesity. -Goal sats greater 90%. Tolerating 2 L daily BiPAP initiating criteria -ABG morning of 01/24/2024 with pH 7.3, pCO2 70, pO2 78. Qualifies for BiPAP. Over 120 minutes of desats below 88% on overnight pulse ox. - Home oxygen requirement 2 L via nasal cannula, continue as needed, goal sats greater 90%. Met criteria with ABG this morning on day of discharge with pCO2 above 52 (70) - Patient necessitating BiPAP due to hypercapnia related to her COPD. She does not have a working diagnosis of sleep apnea Acute on chronic HFpEF (class C/NYHA IV) - Bumex 1 mg twice daily. Frankly volume overloaded with significant peripheral edema. - Strict I's and O's; -3-1/2 L since admission - CBC, CMP, magnesium ordered for the morning. drug therapy requiring intensive monitoring for toxicity Beta-christofer therapy Aldosterone antagonist therapy Avoiding SGLT2 inhibitor therapy with CKD 4 Avoiding ARNI therapy with CKD 4 Echo (06/20/2023): EF 55% Nicotine dependence: Tobacco cessation education; NRT Chronic kidney disease stage IV Baseline creatinine 1.7-2.0. Creatinine 2.1 today, BUN 58. repeat CBC, CMP, magnesium ordered for the morning; monitor for progressive bump as she approaches euvolemia. Mood disorder Routine nursing interaction Continue BuSpar 20 mg daily; Abilify 5 mg daily, trazodone 100 mg nightly, and venlafaxine 75 mg daily Seizure disorder Seizure precautions, Keppra per home regimen with 500 mg twice daily PT and OT evaluated because of deconditioning. Recommend placement VTE prophylaxis: Heparin CODE STATUS: Full code POA/HCS: Harsh- The length of stay for this patient will be 2 midnights or greater due to above diagnoses.
[2024-01-25 07:14] LABS: Albumin Level 2.8 g/dl (3.5-5.0); Chloride 103 mmol/L (98-107); Sodium 141 mmol/L (136-145)
[2024-01-25 07:17] LABS: Alanine Aminotransferase 11 U/L (12-78); Alkaline Phosphatase 96 U/L (38-126); Aspartate Amino Transferase 19 U/L (14-36); Bilirubin,Total 0.4 mg/dl (0.2-1.3); Blood Urea Nitrogen 53 mg/dl (7-17); Calcium 8.3 mg/dl (8.4-10.2); Carbon Dioxide 39 mmol/L (22.0-30.0); Creatinine Clearance Estimated 24 mL/min (50-200); Estimated Glomerular Filt Rate 25 ml/min (>60); GFR (African American) 30 ML/MIN (>60); Globulin 2.8 g/dL (1.3-3.2); Glucose 98 mg/dl (74-100); Total Protein,Serum 5.6 g/dl (6.3-8.2)
[2024-01-25 07:28] LABS: Basophils % 0.4 % (0.1-2.0); Eosinophils % 0.7 % (0.1-12.0); Hematocrit 29.9 % (37.0-47.0); Hemoglobin 9.4 g/dL (12.2-16.2); Lymphocytes % 21.2 % (10-50); Mean Corpuscular HGB Conc 31.3 g/dL (31.8-35.4); Mean Corpuscular Volume 95.8 fl (81-99); Mean Platelet Volume 8.6 fl (7.4-10.4); Monocytes # 0.5 K/mm3 (0.1-1.0); Monocytes % 11.4 % (1.7-9.3); Neutrophils # 3.1 K/mm3 (1.8-7.8); Neutrophils % 66.2 % (37.0-80.0); Platelet Count 150 K/mm3 (142-424); Red Blood Count 3.12 M/mm3 (4.20-5.40); White Blood Count 4.6 K/mm3 (4.8-10.8)
[2024-01-25 08:11] LABS: Magnesium 1.9 mg/dl (1.6-2.3)
[2024-01-25] MEDS: FLUTICASONE/UMECLIDIN/VILANTER 100/62.5/25MCG INHALER 1 PUFF IH (08:26)
[2024-01-25] MEDS: levETIRAcetam 500 MG TABLET PO ×2 (10:26→20:39)
[2024-01-25] MEDS: ARIPiprazole 10MG TABLET 5 MG PO (10:27)
[2024-01-25] MEDS: VENLAFAXINE XR 75MG CAPSULE 75 MG PO (10:27)
[2024-01-25] MEDS: BUSPIRONE HCL 10 MG TABLET 20 MG PO (10:27)
[2024-01-25] MEDS: BUMETANIDE 1MG/4ML VIAL 1 MG IV ×2 (10:29→16:53)
[2024-01-25] MEDS: TRAZODONE 50MG TABLET 100 MG PO (20:38)
[2024-01-25] MEDS: ROPINIROLE 1MG TABLET 1 MG PO (20:39)
[2024-01-25] MEDS: PANTOPRAZOLE 40MG TABLET 40 MG PO (20:39)
[2024-01-26] VITALS (7 sets, daily range): BP systolic 107–128; BP diastolic 58–72; PULSE 70–85; RESP 16–20; TEMP 36.6–37.4; O2SAT 89–95; BMI 51.8
--- NOTE | 2024-01-26 05:33 | PC.NURSE ---
Alert and oriented. No complaints from patient throughout the night. BiPAP placed at patient request at 0200 and remains on at this time. Q2 turn. Refuses FS and heparin. 3L NC, O2 sat >90%. Lung sounds diminished. Bed alarm on. Call light in reach.
[2024-01-26 07:16] LABS: Basophils % 0.3 % (0.1-2.0); Eosinophils % 0.8 % (0.1-12.0); Hematocrit 30.7 % (37.0-47.0); Hemoglobin 9.8 g/dL (12.2-16.2); Lymphocytes % 24.1 % (10-50); Mean Corpuscular HGB Conc 31.8 g/dL (31.8-35.4); Mean Corpuscular Hemoglobin 30.4 pg (27.0-31.2); Mean Corpuscular Volume 95.7 fl (81-99); Mean Platelet Volume 8.8 fl (7.4-10.4); Monocytes # 0.4 K/mm3 (0.1-1.0); Monocytes % 10.3 % (1.7-9.3); Neutrophils # 2.7 K/mm3 (1.8-7.8); Neutrophils % 64.5 % (37.0-80.0); Platelet Count 145 K/mm3 (142-424); Red Blood Count 3.21 M/mm3 (4.20-5.40); Red Cell Distribution Width 14.9 % (11.5-17.5); White Blood Count 4.2 K/mm3 (4.8-10.8)
[2024-01-26 07:41] LABS: Magnesium 1.8 mg/dl (1.6-2.3)
[2024-01-26] MEDS: levETIRAcetam 500 MG TABLET PO ×2 (08:05→20:44)
[2024-01-26] MEDS: BUMETANIDE 1MG/4ML VIAL 1 MG IV ×2 (08:05→16:18)
[2024-01-26] MEDS: BUSPIRONE HCL 10 MG TABLET 20 MG PO (08:05)
[2024-01-26] MEDS: ARIPiprazole 10MG TABLET 5 MG PO (08:05)
[2024-01-26] MEDS: VENLAFAXINE XR 75MG CAPSULE 75 MG PO (08:05)
[2024-01-26] MEDS: FLUTICASONE/UMECLIDIN/VILANTER 100/62.5/25MCG INHALER 1 PUFF IH (08:21)
[2024-01-26 08:43] LABS: Alanine Aminotransferase 10 U/L (12-78); Albumin Level 2.7 g/dl (3.5-5.0); Alkaline Phosphatase 89 U/L (38-126); Aspartate Amino Transferase 19 U/L (14-36); Bilirubin,Total 0.4 mg/dl (0.2-1.3); Blood Urea Nitrogen 46 mg/dl (7-17); Calcium 8.3 mg/dl (8.4-10.2); Chloride 104 mmol/L (98-107); Creatinine Clearance Estimated 27 mL/min (50-200); Estimated Glomerular Filt Rate 28 ml/min (>60); GFR (African American) 34 ML/MIN (>60); Globulin 2.6 g/dL (1.3-3.2); Glucose 93 mg/dl (74-100); Sodium 138 mmol/L (136-145); Total Protein,Serum 5.3 g/dl (6.3-8.2)
[2024-01-26 08:49] LABS: Carbon Dioxide 37 mmol/L (22.0-30.0)
--- NOTE | 2024-01-26 08:49 | P.PN_ITS ---
Subjective *Date: 01/26/24 *Time: 13:06 Interval history: 4 by Overnight. Alert and oriented this morning. No chest pain or nausea or vomiting. Stable on 3 L. Medical Exam Vital signs and Labs for Last 24 Hours: Vital Signs Temp Pulse Pulse Resp BP Pulse Ox O2 Del Method 01/26/24 06:59 Nasal Cannula 01/26/24 04:59 BiPAP 01/26/24 04:00 76 01/26/24 04:00 99.3 F 71 18 122/64 92 L BiPAP 01/26/24 03:00 BiPAP 01/26/24 01:00 Nasal Cannula 01/26/24 00:00 85 01/26/24 00:00 98.7 F 85 20 107/58 L 93 L Nasal Cannula 01/25/24 22:37 Nasal Cannula 01/25/24 21:00 01/25/24 21:00 Nasal Cannula 01/25/24 20:00 83 01/25/24 20:00 Nasal Cannula 01/25/24 20:00 80 18 128/58 L 94 L Nasal Cannula 01/25/24 19:00 Nasal Cannula 01/25/24 18:36 Nasal Cannula 01/25/24 17:00 Nasal Cannula 01/25/24 16:00 80 01/25/24 16:00 Nasal Cannula 01/25/24 16:00 98.8 F 83 20 116/65 93 L 01/25/24 15:00 Nasal Cannula 01/25/24 13:00 Nasal Cannula 01/25/24 12:00 75 01/25/24 11:55 98.7 F 79 15 117/56 L 93 L 01/25/24 11:00 Nasal Cannula 01/25/24 09:00 Nasal Cannula O2 Flow Rate FiO2 01/26/24 06:59 3 01/26/24 04:59 01/26/24 04:00 01/26/24 04:00 01/26/24 03:00 01/26/24 01:00 3 01/26/24 00:00 01/26/24 00:00 2 01/25/24 22:37 3 01/25/24 21:00 30 01/25/24 21:00 3 01/25/24 20:00 01/25/24 20:00 3 01/25/24 20:00 01/25/24 19:00 01/25/24 18:36 3 32 10/12/24 17:00 01/25/24 16:00 01/25/24 16:00 01/25/24 16:00 01/25/24 15:00 01/25/24 13:00 01/25/24 12:00 01/25/24 11:55 01/25/24 11:00 01/25/24 09:00 Intake and Output 01/25/24 01/26/24 01/26/24 23:59 07:59 15:59 Intake Total 350 / 1130 300 / 300 Output Total 850 / 2200 450 / 450 Balance -500 / -1070 -150 / -150 Intake: Intake, Oral Amount 350 / 1130 300 / 300 Output: Output, Urine Amount 850 / 2200 450 / 450 Other: Number of Unmeasured Voids 0 1 Number of Bowel Movements 1 Weight 141.249 kg Patient Weight 01/26/24 23:59 Weight 141.249 kg Laboratory Results - last 24 hr 01/26/24 06:50: WBC 4.2 L, RBC 3.21 L, Hgb 9.8 L, Hct 30.7 L, MCV 95.7, MCH 30.4, MCHC 31.8, RDW 14.9, Plt Count 145, MPV 8.8, Neut % (Auto) 64.5, Lymph % (Auto) 24.1, [place] % (Auto) 10.3 H, Eos % (Auto) 0.8, Baso % (Auto) 0.3, Neut # (Auto) 2.7, Lymph # (Auto) 1.0, [place] # (Auto) 0.4, Eos # (Auto) 0.0, Baso # (Auto) 0.0, Sodium 138, Potassium 4.0, Chloride 104, BUN 46 H, Creatinine 1.80 H , Estimated Creat Clear 27, Estimated GFR 28 L, Est GFR ( Amer) 34 L, Glucose 93, Calcium 8.3 L, Magnesium 1.8, Total Bilirubin 0.4, AST 19, ALT 10 L, Alkaline Phosphatase 89, Total Protein 5.3 L, Albumin 2.7 L, Globulin 2.6, Albumin/Globulin Ratio 1.0 L I & O for Labs for Last 24 Hours: Intake & Output 01/23/24 01/24/24 01/25/24 01/26/24 23:59 23:59 23:59 23:59 Intake Total 1200 / 1200 470 / 470 830 / 1130 300 / 300 Output Total 1750 / 2275 1225 / 1225 2200 / 2200 450 / 450 Balance -550 / -1075 -755 / -755 -1370 / -1070 -150 / -150 Weight 140.9 kg 141.838 kg 140.795 kg 141.249 kg Constitutional: Present no acute distress, morbidly obese, chronically ill appearing and cooperative Head: Present atraumatic and normocephalic ENT: Present normal exam Neck: Present normal inspection Respiratory: Present accessory muscle use, prolonged expiratory phase and crackles (bases); Absent rhonchi or wheezes Cardiac: Present Reg Rate and Rhythm GI: Present soft and normal bowel sounds; Absent distention or tenderness Comment:: Pérez in place Extremities: Present normal inspection, full ROM and edema (3+ in BLE to thighs, however improving ) Skin: Present intact; Absent erythema Comment:: dry, scale on BLE Neuro: Present Grossly Intact, alert, awake and moves all extremities Comment:: Oriented to self and place Assessment and Plan *Assessment and plan (1) Acute on chronic heart failure with preserved ejection fraction (HFpEF): Status: Acute Category: Medical Code(s): I50.33 - Acute on chronic diastolic (congestive) heart failure (2) Acute on chronic respiratory failure with hypoxia and hypercapnia: Status: Acute Category: Medical Code(s): J96.21 - Acute and chronic respiratory failure with hypoxia; J96.22 - Acute and chronic respiratory failure with hypercapnia (3) Obesity hypoventilation syndrome: Status: Acute Category: Medical Code(s): E66.2 - Morbid (severe) obesity with alveolar hypoventilation (4) BMI 50.0-59.9, adult: Status: Acute Category: Medical Code(s): Z68.43 - Body mass index [BMI] 50.0-59.9, adult (5) CKD (chronic kidney disease) stage 4, GFR 15-29 ml/min: Status: Acute Category: Medical Code(s): N18.4 - Chronic kidney disease, stage 4 (severe) (6) Tobacco dependence: Status: Acute Category: Medical Code(s): F17.200 - Nicotine dependence, unspecified, uncomplicated (7) Mood disorder: Status: Acute Category: Medical Code(s): F39 - Unspecified mood [affective] disorder (8) Seizure disorder: Status: Acute Category: Medical Code(s): G40.909 - Epilepsy, unspecified, not intractable, without status epilepticus (9) Bedbug bite: Status: Acute Category: Medical Code(s): W57.XXXA - Bitten or stung by nonvenomous insect and other nonvenomous arthropods, initial encounter (10) Major depression: Status: Chronic Qualifiers: Active/Remission status: currently active Major depression episode severity: severe Major depression recurrence: recurrent Psychotic features: with psychotic features Qualified Code(s): F33.3 - Major depressive disorder, recurrent, severe with psychotic symptoms Category: Medical Code(s): F32.9 - Major depressive disorder, single episode, unspecified Plan Patient is a 63-year-old female with chronic history of tobacco dependence, obstructive sleep apnea/BMI 52/OHS/COPD overlap on 2 L of oxygen at home who presents with shortness of air with a chronic history of heart failure with preserved ejection fraction with most recent echo EF 60%. She has chronic kidney disease stage IV with a baseline creatinine 1.6 and identified history of medical noncompliance. Presented to the ER because of worsening shortness of breath. Found to be hypercapnic in the ER with hypercapnic respiratory failure. Initiated on BiPAP due to her respiratory acidosis and confusion. Discussed case with ER physician, request admission for treatment of possible pneumonia, volume overload, hypercapnic respiratory failure. I agreed to admit for further management. Wore BiPAP. Doing well this morning. Awaiting placement. Continues to require inpatient management. Problems addressed as follows: Acute on chronic hypoxic and hypercapnic respiratory failure Tobacco dependence BMI 52/OHS/COPD overlap Home oxygen requirement 1-2 L via nasal cannula; increased oxygen requirement and elevated CO2 in the ER. -Pulmonology consulted, patient qualifies for overnight BiPAP. Continue BiPAP therapy at 18/8 with a rate of 18 and FiO2 30%. DuoNebs every 6 hours scheduled. -Numerous admissions in the past for hypercapnic respiratory failure due to her obesity hypoventilation syndrome. likely secondary to not having BiPAP at home and recurrent hypercapnia at night due to her COPD and obesity. -Goal sats greater 90%. Tolerating 2 L daily BiPAP initiating criteria -ABG morning of 01/24/2024 with pH 7.3, pCO2 70, pO2 78. Qualifies for BiPAP. Over 120 minutes of desats below 88% on overnight pulse ox. - Home oxygen requirement 2 L via nasal cannula, continue as needed, goal sats greater 90%. Met criteria with ABG this morning on day of discharge with pCO2 above 52 (70) - Patient necessitating BiPAP due to hypercapnia related to her COPD. She does not have a working diagnosis of sleep apnea Acute on chronic HFpEF (class C/NYHA IV) - Bumex 1 mg twice daily. Frankly volume overloaded with significant peripheral edema. - Strict I's and O's; -4.5 L since admission - CBC, CMP, magnesium ordered for the morning. drug therapy requiring intensive monitoring for toxicity Beta-christofer therapy Aldosterone antagonist therapy Avoiding SGLT2 inhibitor therapy with CKD 4 Avoiding ARNI therapy with CKD 4 Echo (06/20/2023): EF 55% Nicotine dependence: Tobacco cessation education; NRT Chronic kidney disease stage IV Baseline creatinine 1.7-2.0. Creatinine 1.8, BUN 46. Magnesium 1.8, potassium 4.0. repeat CBC, CMP, magnesium ordered for the morning; monitor for progressive bump as she approaches euvolemia. Mood disorder Routine nursing interaction Continue BuSpar 20 mg daily; Abilify 5 mg daily, trazodone 100 mg nightly, and venlafaxine 75 mg daily Seizure disorder Seizure precautions, Keppra per home regimen with 500 mg twice daily PT and OT evaluated because of deconditioning. Recommend placement VTE prophylaxis: Heparin CODE STATUS: Full code POA/HCS: Harsh- The length of stay for this patient will be 2 midnights or greater due to above diagnoses.
[2024-01-26 11:25] LABS: POC Glucose,Bedside 105 (70-110)
[2024-01-26] MEDS: TRAZODONE 50MG TABLET 100 MG PO (20:44)
[2024-01-26] MEDS: ROPINIROLE 1MG TABLET 1 MG PO (20:44)
[2024-01-26] MEDS: PANTOPRAZOLE 40MG TABLET 40 MG PO (20:45)
[2024-01-27] VITALS (9 sets, daily range): BP systolic 109–131; BP diastolic 53–72; PULSE 57–90; RESP 17–22; TEMP 36.6–37.1; O2SAT 93–99; BMI 51.7
--- NOTE | 2024-01-27 05:39 | PC.NURSE ---
No acute changes overnight. Patient refused bipap until approximately 0230. Still refusing FSBS and Heparin. Currently maintaining o2 stats >90% on bipap. Bed alarm on for patient safety. Call light within reach.
[2024-01-27 06:55] LABS: Albumin Level 2.9 g/dl (3.5-5.0); Chloride 99 mmol/L (98-107); Sodium 139 mmol/L (136-145)
[2024-01-27 06:57] LABS: Alanine Aminotransferase 8 U/L (12-78); Alkaline Phosphatase 97 U/L (38-126); Aspartate Amino Transferase 20 U/L (14-36); Basophils % 0.6 % (0.1-2.0); Bilirubin,Total 0.6 mg/dl (0.2-1.3); Blood Urea Nitrogen 37 mg/dl (7-17); Creatinine Clearance Estimated 27 mL/min (50-200); Eosinophils % 0.5 % (0.1-12.0); Estimated Glomerular Filt Rate 28 ml/min (>60); GFR (African American) 34 ML/MIN (>60); Hematocrit 32.9 % (37.0-47.0); Hemoglobin 10.3 g/dL (12.2-16.2); Lymphocytes # 0.9 K/mm3 (0.7-4.5); Lymphocytes % 24.2 % (10-50); Mean Corpuscular HGB Conc 31.3 g/dL (31.8-35.4); Mean Corpuscular Volume 95.8 fl (81-99); Mean Platelet Volume 8.4 fl (7.4-10.4); Monocytes # 0.4 K/mm3 (0.1-1.0); Monocytes % 9.7 % (1.7-9.3); Neutrophils # 2.5 K/mm3 (1.8-7.8); Neutrophils % 65.2 % (37.0-80.0); Platelet Count 132 K/mm3 (142-424); Red Blood Count 3.44 M/mm3 (4.20-5.40); Red Cell Distribution Width 14.7 % (11.5-17.5); White Blood Count 3.8 K/mm3 (4.8-10.8)
[2024-01-27 06:58] LABS: Albumin/Globulin Ratio 0.9 (1.1-1.8); Calcium 8.5 mg/dl (8.4-10.2); Globulin 3.1 g/dL (1.3-3.2); Glucose 89 mg/dl (74-100); Magnesium 1.8 mg/dl (1.6-2.3)
[2024-01-27 07:05] LABS: Carbon Dioxide 39 mmol/L (22.0-30.0)
[2024-01-27] MEDS: FLUTICASONE/UMECLIDIN/VILANTER 100/62.5/25MCG INHALER 1 PUFF IH (07:09)
[2024-01-27] MEDS: NICOTINE 21MG/24HR PATCH 21 MG TD (08:16)
[2024-01-27] MEDS: BUSPIRONE HCL 10 MG TABLET 20 MG PO (08:56)
[2024-01-27] MEDS: VENLAFAXINE XR 75MG CAPSULE 75 MG PO (08:57)
[2024-01-27] MEDS: levETIRAcetam 500 MG TABLET PO ×2 (08:57→20:44)
[2024-01-27] MEDS: BUMETANIDE 1MG/4ML VIAL 1 MG IV ×2 (08:59→16:35)
[2024-01-27] MEDS: ARIPiprazole 10MG TABLET 5 MG PO (09:15)
--- NOTE | 2024-01-27 10:01 | EXP.PULM.PN ---
Subjective *Date: 01/27/24 *Time: 11:33 Interval history: No acute respiratory events over the weekend. Pulmonology Exam Inpatient Vital signs and Labs for Last 24 Hours: Temp Pulse Resp BP Pulse Ox O2 Del Method O2 Flow Rate 97.9 F 73 18 114/69 93 L Room Air 3 01/27/24 08:00 01/27/24 08:00 01/27/24 08:00 01/27/24 08:00 01/27/24 08:00 01/27/24 08:00 01/27/24 01:00 FiO2 30 01/27/24 03:02 Laboratory Results - last 24 hr 01/26/24 11:15: POC Glucose 105 01/27/24 05:22: WBC 3.8 L, RBC 3.44 L, Hgb 10.3 L, Hct 32.9 L, MCV 95.8, MCH 30.0, MCHC 31.3 L, RDW 14.7, Plt Count 132 L, MPV 8.4, Neut % (Auto) 65.2, Lymph % (Auto) 24.2, [place] % (Auto) 9.7 H, Eos % (Auto) 0.5, Baso % (Auto) 0.6, Neut # (Auto) 2.5, Lymph # (Auto) 0.9, [place] # (Auto) 0.4, Eos # (Auto) 0.0, Baso # (Auto) 0.0, Sodium 139, Potassium 4.0, Chloride 99, Carbon Dioxide 39 H, Anion Gap 5.0, BUN 37 H, Creatinine 1.80 H, Estimated Creat Clear 27, Estimated GFR 28 L, Est GFR ( Amer) 34 L, Glucose 89, Calcium 8.5, Magnesium 1.8, Total Bilirubin 0.6, AST 20, ALT 8 L, Alkaline Phosphatase 97, Total Protein 6.0 L, Albumin 2.9 L, Globulin 3.1, Albumin/Globulin Ratio 0.9 L Temp Pulse Resp BP Pulse Ox O2 Del Method O2 Flow Rate 98.0 F 63 23 117/60 95 BiPAP 2 01/24/24 07:57 01/24/24 09:00 01/24/24 09:00 01/24/24 09:00 01/24/24 09:00 01/24/24 09:03 01/24/24 08:00 FiO2 30 01/24/24 08:20 Laboratory Results - last 24 hr 01/22/24 13:35: Hepatitis C Antibody Non reactive 01/23/24 11:50: POC Glucose 94 01/23/24 16:01: POC Glucose 112 H 01/24/24 06:00: Specimen Source Right brachial, O2 % 2.5l, ABG pH 7.30 L, ABG pCO2 70.2 H, ABG pO2 78.1 L, ABG HCO3 34.1 H, ABG Total CO2 36.2 H, ABG O2 Saturation 94, ABG Base Excess 7.7 H, Allan Test Acceptable 01/24/24 06:09: WBC 5.3 D, RBC 3.47 L, Hgb 10.0 L, Hct 33.5 L, MCV 96.6, MCH 28.8, MCHC 29.7 L, RDW 15.2, Plt Count 167, MPV 9.2, Neut % (Auto) 61.1, Lymph % (Auto) 27.6, [place] % (Auto) 10.0 H, Eos % (Auto) 0.6, Baso % (Auto) 0.7, Neut # (Auto) 3.2, Lymph # (Auto) 1.5, [place] # (Auto) 0.5, Eos # (Auto) 0.0, Baso # (Auto) 0.0, Sodium 139, Potassium 4.1, Chloride 102, Carbon Dioxide 36 H, Anion Gap 5.1, BUN 58 H, Creatinine 2.10 H, Estimated Creat Clear 23, Estimated GFR 24 L, Est GFR ( Amer) 29 L, Glucose 95, Calcium 8.3 L, Magnesium 2.1, Total Bilirubin 0.4, AST 21, ALT 14, Alkaline Phosphatase 107, Total Protein 6.1 L, Albumin 3.1 L, Globulin 3.0, Albumin/Globulin Ratio 1.0 L I & O for Labs for Last 24 Hours: Intake & Output 01/24/24 01/25/24 01/26/24 01/27/24 23:59 23:59 23:59 23:59 Intake Total 470 / 470 830 / 1130 1740 / 1740 360 / 360 Output Total 1225 / 1225 2200 / 2200 450 / 450 50 / 50 Balance -755 / -755 -1370 / -1070 1290 / 1290 310 / 310 Weight 312 lb 11.188 oz 310 lb 6.4 oz 311 lb 6.4 oz 310 lb 6.574 oz Intake & Output 01/21/24 01/22/24 01/23/24 01/24/24 23:59 23:59 23:59 23:59 Intake Total 1200 / 1200 100 / 100 Output Total 1251 / 1751 1750 / 2275 775 / 775 Balance -1251 / -1751 -550 / -1075 -675 / -675 Weight 312 lb 6.99 oz 310 lb 10.101 oz 312 lb 11.2 oz Microbiology Reports for the Last 24 Hours: Microbiology 01/22/24 13:30 Blood Blood Culture - Preliminary NO GROWTH AFTER 4 DAYS 01/22/24 13:30 Blood Blood Culture - Preliminary NO GROWTH AFTER 4 DAYS Microbiology 01/22/24 13:30 Blood Blood Culture - Preliminary NO GROWTH AFTER 24 HOURS 01/22/24 13:30 Blood Blood Culture - Preliminary NO GROWTH AFTER 24 HOURS Constitutional: Present severe distress Head: Present normocephalic and atraumatic ENT: Present normal exam, normal oropharynx and mucous membranes moist Neck: Present normal inspection and full ROM Respiratory: Present diminished air movement and able to speak in complete sentences; Absent prolonged expiratory phase, respiratory distress, wheezes or crackles Cardiac: Present S1/S2, Tachycardia and radial pulses present GI: Present soft and distention; Absent tenderness or guarding Rectal (female): Present deferred (female): Present deferred Skin: Present intact; Absent cyanosis or jaundice Neuro: Present alert, awake and oriented x 3 Extremities: Present normal inspection; Absent clubbing or cyanosis Psychiatric: Present normal affect and cooperative Assessment and Plan *Assessment and plan (1) Obesity hypoventilation syndrome: Status: Acute Category: Medical Code(s): E66.2 - Morbid (severe) obesity with alveolar hypoventilation (2) Acute and chronic respiratory failure with hypercapnia: Status: Acute Category: Medical Code(s): J96.22 - Acute and chronic respiratory failure with hypercapnia Plan Ms. Diaz is a 63-year-old female with reported history of COPD, CKD stage IV, morbid obesity, heart failure presented to the ER with worsening respiratory distress found to be hypercarbic respiratory failure not needing noninvasive ventilator therapy pulmonary was called for further evaluation and management. Patient was off BiPAP overnight with morning ABG showed worsening hypercarbic respiratory failure. It is not clear whether patient has been using BiPAP or not at this point of time. CT chest upon admission, upper lobe interstitial changes left greater than right. No other consolidative/fibrotic changes noted. No significant emphysema appreciated. Afebrile. Hemodynamically stable. No significant leukocytosis. Respiratory viral PCR panel negative. Hospital admission July 2023 for pneumonia and hypercarbic respiratory failure. Patient was discharged home on BiPAP therapy. Continue to receive nebulization therapies. Interval update: No acute respiratory events over the weekend. Stable oxygen requirements. Continue to receive Trelegy Inhaler, oxygen supplementation during the daytime and BiPAP therapy at night. Plan: Continue BiPAP therapy at 8/18 and a rate of 18 and FiO2 of 30%. Will follow-up with social work as patient was supposed to be using BiPAP therapy at night from her prior discharge from July 2023. DuoNebs 4 times daily as needed Establish care with sleep clinic as an outpatient basis. Thank you for involving pulmonary in this patient care. Will continue to follow.
[2024-01-27 11:58] LABS: POC Glucose,Bedside 102 (70-110)
--- NOTE | 2024-01-27 18:21 | PC.NURSE ---
1820: Pt. alert and orientated x 4. Pt. was up in the chair with therapy help. Pt. states that she feels beeter sitting up . Vital signs stable. Pt. is waiting for insurance approval to be placed in rehab service. Pt. had a good day. She is refusing SQ Heparin and finger sticks for glucose.
--- NOTE | 2024-01-27 18:23 | P.PN_ITS ---
Subjective *Date: 01/27/24 *Time: 22:22 Interval history: Wore BiPAP overnight. Alert and oriented this morning. No chest pain or nausea or vomiting. Stable on 3 L. Medical Exam Vital signs and Labs for Last 24 Hours: Vital Signs Temp Pulse Pulse Resp BP Pulse Ox O2 Del Method 01/27/24 16:00 80 01/27/24 16:00 98.2 F 78 17 123/60 99 01/27/24 15:00 Room Air 01/27/24 13:00 Room Air 01/27/24 12:00 97.9 F 80 17 109/53 L 94 L 01/27/24 12:00 70 01/27/24 11:00 Nasal Cannula 01/27/24 09:00 Nasal Cannula 01/27/24 08:00 70 01/27/24 08:00 Nasal Cannula 01/27/24 08:00 97.9 F 73 18 114/69 93 L Room Air 01/27/24 06:45 BiPAP 01/27/24 05:00 BiPAP 01/27/24 04:00 59 L 01/27/24 04:00 98.0 F 57 L 20 131/72 94 L BiPAP 01/27/24 03:02 01/27/24 03:00 BiPAP 01/27/24 01:00 Nasal Cannula 01/27/24 00:00 71 01/27/24 00:00 98.8 F 72 20 123/57 L 96 01/26/24 23:00 Nasal Cannula 01/26/24 21:00 Nasal Cannula 01/26/24 20:44 Nasal Cannula 01/26/24 20:00 80 01/26/24 20:00 98.3 F 78 20 128/65 95 Nasal Cannula 01/26/24 19:04 Nasal Cannula 01/26/24 18:26 Nasal Cannula O2 Flow Rate FiO2 01/27/24 16:00 01/27/24 16:00 01/27/24 15:00 01/27/24 13:00 01/27/24 12:00 01/27/24 12:00 01/27/24 11:00 3 01/27/24 09:00 3 01/27/24 08:00 01/27/24 08:00 3 01/27/24 08:00 01/27/24 06:45 01/27/24 05:00 01/27/24 04:00 01/27/24 04:00 01/27/24 03:02 30 01/27/24 03:00 01/27/24 01:00 3 01/27/24 00:00 01/27/24 00:00 3 01/26/24 23:00 3 01/26/24 21:00 3 01/26/24 20:44 3 01/26/24 20:00 01/26/24 20:00 3 01/26/24 19:04 3 32 01/26/24 18:26 3 Intake and Output 01/27/24 01/27/24 01/27/24 07:59 15:59 23:59 Intake Total 720 / 1080 360 / 1080 Output Total 50 / 1150 1100 / 1150 Balance -50 / -70 720 / -70 -740 / -70 Intake: Intake, Oral Amount 720 / 1080 360 / 1080 Output: Output, Urine Amount 50 / 1150 1100 / 1150 Other: Number of Unmeasured Voids 0 1 Weight 140.8 kg Patient Weight 01/27/24 23:59 Weight 140.8 kg Laboratory Results - last 24 hr 01/27/24 05:22: WBC 3.8 L, RBC 3.44 L, Hgb 10.3 L, Hct 32.9 L, MCV 95.8, MCH 30.0, MCHC 31.3 L, RDW 14.7, Plt Count 132 L, MPV 8.4, Neut % (Auto) 65.2, Lymph % (Auto) 24.2, [place] % (Auto) 9.7 H, Eos % (Auto) 0.5, Baso % (Auto) 0.6, Neut # (Auto) 2.5, Lymph # (Auto) 0.9, [place] # (Auto) 0.4, Eos # (Auto) 0.0, Baso # (Auto) 0.0, Sodium 139, Potassium 4.0, Chloride 99, Carbon Dioxide 39 H, Anion Gap 5.0, BUN 37 H, Creatinine 1.80 H, Estimated Creat Clear 27, Estimated GFR 28 L, Est GFR ( Amer) 34 L, Glucose 89, Calcium 8.5, Magnesium 1.8, Total Bilirubin 0.6, AST 20, ALT 8 L, Alkaline Phosphatase 97, Total Protein 6.0 L, Albumin 2.9 L, Globulin 3.1, Albumin/Globulin Ratio 0.9 L 01/27/24 11:49: POC Glucose 102 I & O for Labs for Last 24 Hours: Intake & Output 01/24/24 01/25/24 01/26/24 01/27/24 23:59 23:59 23:59 23:59 Intake Total 470 / 470 830 / 1130 1740 / 1740 1080 / 1080 Output Total 1225 / 1225 2200 / 2200 450 / 450 1150 / 1150 Balance -755 / -755 -1370 / -1070 1290 / 1290 -70 / -70 Weight 141.838 kg 140.795 kg 141.249 kg 140.8 kg Microbiology Reports for the Last 24 Hours: Microbiology 01/22/24 13:30 Blood Blood Culture - Final NO GROWTH AFTER 5 DAYS 01/22/24 13:30 Blood Blood Culture - Final NO GROWTH AFTER 5 DAYS Constitutional: Present no acute distress, morbidly obese, chronically ill appearing and cooperative Head: Present atraumatic and normocephalic ENT: Present normal exam Neck: Present normal inspection Respiratory: Present accessory muscle use, prolonged expiratory phase and crackles (bases); Absent rhonchi or wheezes Cardiac: Present Reg Rate and Rhythm GI: Present soft and normal bowel sounds; Absent distention or tenderness Comment:: Pérez in place Extremities: Present normal inspection, full ROM and edema (2+ in BLE to thighs, however improving ) Skin: Present intact; Absent erythema Comment:: dry, scale on BLE Neuro: Present Grossly Intact, alert, awake and moves all extremities Comment:: Oriented to self and place Assessment and Plan *Assessment and plan (1) Acute on chronic heart failure with preserved ejection fraction (HFpEF): Status: Acute Category: Medical Code(s): I50.33 - Acute on chronic diastolic (congestive) heart failure (2) Acute on chronic respiratory failure with hypoxia and hypercapnia: Status: Acute Category: Medical Code(s): J96.21 - Acute and chronic respiratory failure with hypoxia; J96.22 - Acute and chronic respiratory failure with hypercapnia (3) Obesity hypoventilation syndrome: Status: Acute Category: Medical Code(s): E66.2 - Morbid (severe) obesity with alveolar hypoventilation (4) BMI 50.0-59.9, adult: Status: Acute Category: Medical Code(s): Z68.43 - Body mass index [BMI] 50.0-59.9, adult (5) CKD (chronic kidney disease) stage 4, GFR 15-29 ml/min: Status: Acute Category: Medical Code(s): N18.4 - Chronic kidney disease, stage 4 (severe) (6) Tobacco dependence: Status: Acute Category: Medical Code(s): F17.200 - Nicotine dependence, unspecified, uncomplicated (7) Mood disorder: Status: Acute Category: Medical Code(s): F39 - Unspecified mood [affective] disorder (8) Seizure disorder: Status: Acute Category: Medical Code(s): G40.909 - Epilepsy, unspecified, not intractable, without status epilepticus (9) Bedbug bite: Status: Acute Category: Medical Code(s): W57.XXXA - Bitten or stung by nonvenomous insect and other nonvenomous ar thropods, initial encounter (10) Major depression: Status: Chronic Qualifiers: Active/Remission status: currently active Major depression episode severity: severe Major depression recurrence: recurrent Psychotic features: with psychotic features Qualified Code(s): F33.3 - Major depressive disorder, recurrent, severe with psychotic symptoms Category: Medical Code(s): F32.9 - Major depressive disorder, single episode, unspecified Plan Patient is a 63-year-old female with chronic history of tobacco dependence, obstructive sleep apnea/BMI 52/OHS/COPD overlap on 2 L of oxygen at home who presents with shortness of air with a chronic history of heart failure with preserved ejection fraction with most recent echo EF 60%. She has chronic kidney disease stage IV with a baseline creatinine 1.6 and identified history of medical noncompliance. Presented to the ER because of worsening shortness of breath. Found to be hypercapnic in the ER with hypercapnic respiratory failure. Initiated on BiPAP due to her respiratory acidosis and confusion. Discussed case with ER physician, request admission for treatment of possible pneumonia, volume overload, hypercapnic respiratory failure. I agreed to admit for further management. Wore BiPAP. Doing well this morning. Awaiting placement. Continues to require inpatient management. Problems addressed as follows: Acute on chronic hypoxic and hypercapnic respiratory failure Tobacco dependence BMI 52/OHS/COPD overlap Home oxygen requirement 1-2 L via nasal cannula; increased oxygen requirement and elevated CO2 in the ER. -Pulmonology consulted, patient qualifies for overnight BiPAP. Continue BiPAP therapy at 18/8 with a rate of 18 and FiO2 30%. DuoNebs every 6 hours scheduled. -Numerous admissions in the past for hypercapnic respiratory failure due to her obesity hypoventilation syndrome. likely secondary to not having BiPAP at home and recurrent hypercapnia at night due to her COPD and obesity. -Goal sats greater 90%. Tolerating 2 L daily BiPAP initiating criteria -ABG morning of 01/24/2024 with pH 7.3, pCO2 70, pO2 78. Qualifies for BiPAP. Over 120 minutes of desats below 88% on overnight pulse ox. - Home oxygen requirement 2 L via nasal cannula, continue as needed, goal sats greater 90%. Met criteria with ABG this morning on day of discharge with pCO2 above 52 (70) - Patient necessitating BiPAP due to hypercapnia related to her COPD. She does not have a working diagnosis of sleep apnea Acute on chronic HFpEF (class C/NYHA IV) - Bumex 1 mg twice daily. Frankly volume overloaded with significant peripheral edema. - Strict I's and O's - CBC, CMP, magnesium ordered for the morning. drug therapy requiring intensive monitoring for toxicity Beta-christofer therapy Aldosterone antagonist therapy Avoiding SGLT2 inhibitor therapy with CKD 4 Avoiding ARNI therapy with CKD 4 Echo (06/20/2023): EF 55% Nicotine dependence: Tobacco cessation education; NRT Chronic kidney disease stage IV Baseline creatinine 1.7-2.0. Creatinine 1.8, BUN 37 Magnesium 1.8, potassium 4.0. repeat CBC, CMP, magnesium ordered for the morning; monitor for progressive bump as she approaches euvolemia. Mood disorder Routine nursing interaction Continue BuSpar 20 mg daily; Abilify 5 mg daily, trazodone 100 mg nightly, and venlafaxine 75 mg daily Seizure disorder Seizure precautions, Keppra per home regimen with 500 mg twice daily PT and OT evaluated because of deconditioning. Recommend placement VTE prophylaxis: Heparin CODE STATUS: Full code POA/HCS: Harsh- The length of stay for this patient will be 2 midnights or greater due to above diagnoses.
[2024-01-27] MEDS: ROPINIROLE 1MG TABLET 1 MG PO (20:44)
[2024-01-27] MEDS: TRAZODONE 50MG TABLET 100 MG PO (20:44)
[2024-01-27] MEDS: PANTOPRAZOLE 40MG TABLET 40 MG PO (21:28)
[2024-01-28] VITALS: BP 118/61; PULSE 68; PULSE 70; RESP 18; TEMP 36.8; O2SAT 91
[2024-01-28 02:00] VITALS: RESP 18
[2024-01-28 04:00] VITALS: BP 144/83; PULSE 68; PULSE 70; RESP 18; TEMP 36.9; O2SAT 93; BMI 51.2
[2024-01-28 07:41] LABS: Albumin Level 2.9 g/dl (3.5-5.0); Chloride 99 mmol/L (98-107); Potassium 3.8 mmoL/L (3.5-5.1); Sodium 139 mmol/L (136-145)
[2024-01-28 07:44] LABS: Alanine Aminotransferase 9 U/L (12-78); Alkaline Phosphatase 89 U/L (38-126); Aspartate Amino Transferase 24 U/L (14-36); Bilirubin,Total 0.5 mg/dl (0.2-1.3); Blood Urea Nitrogen 40 mg/dl (7-17); Calcium 8.6 mg/dl (8.4-10.2); Creatinine Clearance Estimated 27 mL/min (50-200); Estimated Glomerular Filt Rate 28 ml/min (>60); GFR (African American) 34 ML/MIN (>60); Glucose 92 mg/dl (74-100); Total Protein,Serum 5.9 g/dl (6.3-8.2)
[2024-01-28 07:51] LABS: Anion Gap 7.8 mEq/L (5-15); Carbon Dioxide 36 mmol/L (22.0-30.0)
[2024-01-28 07:52] LABS: Magnesium 1.7 mg/dl (1.6-2.3)
[2024-01-28 08:00] VITALS: BP 124/73; PULSE 73; PULSE 80; RESP 17; TEMP 36.9; O2SAT 94
[2024-01-28] MEDS: VENLAFAXINE XR 75MG CAPSULE 75 MG PO (08:48)
[2024-01-28] MEDS: ARIPiprazole 10MG TABLET 5 MG PO (08:48)
[2024-01-28] MEDS: ACETAMINOPHEN 325MG TAB 650 MG PO (08:48)
[2024-01-28] MEDS: levETIRAcetam 500 MG TABLET PO (08:48)
[2024-01-28] MEDS: FLUTICASONE/UMECLIDIN/VILANTER 100/62.5/25MCG INHALER 1 PUFF IH (08:49)
[2024-01-28] MEDS: BUMETANIDE 1MG/4ML VIAL 1 MG IV (08:49)
[2024-01-28] MEDS: BUSPIRONE HCL 10 MG TABLET 20 MG PO (08:49)
--- NOTE | 2024-01-28 11:16 | EXP.PULM.PN ---
Subjective *Date: 01/28/24 *Time: 11:18 Interval history: No acute resp events overnight Pulmonology Exam Inpatient Vital signs and Labs for Last 24 Hours: Temp Pulse Resp BP Pulse Ox O2 Del Method O2 Flow Rate 98.5 F 73 17 124/73 94 L Nasal Cannula 3 01/28/24 08:00 01/28/24 08:00 01/28/24 08:00 01/28/24 08:00 01/28/24 08:00 01/28/24 08:00 01/28/24 08:00 FiO2 30 01/28/24 02:00 Laboratory Results - last 24 hr 01/27/24 11:49: POC Glucose 102 01/28/24 05:22: Sodium 139, Potassium 3.8, Chloride 99, Carbon Dioxide 36 H, Anion Gap 7.8, BUN 40 H, Creatinine 1.80 H, Estimated Creat Clear 27, Estimated GFR 28 L, Est GFR ( Amer) 34 L, Glucose 92, Calcium 8.6, Magnesium 1.7, Total Bilirubin 0.5, AST 24, ALT 9 L, Alkaline Phosphatase 89, Total Protein 5.9 L, Albumin 2.9 L, Globulin 3.0, Albumin/Globulin Ratio 1.0 L Temp Pulse Resp BP Pulse Ox O2 Del Method O2 Flow Rate 98.0 F 63 23 117/60 95 BiPAP 2 01/24/24 07:57 01/24/24 09:00 01/24/24 09:00 01/24/24 09:00 01/24/24 09:00 01/24/24 09:03 01/24/24 08:00 FiO2 30 01/24/24 08:20 Laboratory Results - last 24 hr 01/22/24 13:35: Hepatitis C Antibody Non reactive 01/23/24 11:50: POC Glucose 94 01/23/24 16:01: POC Glucose 112 H 01/24/24 06:00: Specimen Source Right brachial, O2 % 2.5l, ABG pH 7.30 L, ABG pCO2 70.2 H, ABG pO2 78.1 L, ABG HCO3 34.1 H, ABG Total CO2 36.2 H, ABG O2 Saturation 94, ABG Base Excess 7.7 H, Allan Test Acceptable 01/24/24 06:09: WBC 5.3 D, RBC 3.47 L, Hgb 10.0 L, Hct 33.5 L, MCV 96.6, MCH 28.8, MCHC 29.7 L, RDW 15.2, Plt Count 167, MPV 9.2, Neut % (Auto) 61.1, Lymph % (Auto) 27.6, [place] % (Auto) 10.0 H, Eos % (Auto) 0.6, Baso % (Auto) 0.7, Neut # (Auto) 3.2, Lymph # (Auto) 1.5, [place] # (Auto) 0.5, Eos # (Auto) 0.0, Baso # (Auto) 0.0, Sodium 139, Potassium 4.1, Chloride 102, Carbon Dioxide 36 H, Anion Gap 5.1, BUN 58 H, Creatinine 2.10 H, Estimated Creat Clear 23, Estimated GFR 24 L, Est GFR ( Amer) 29 L, Glucose 95, Calcium 8.3 L, Magnesium 2.1, Total Bilirubin 0.4, AST 21, ALT 14, Alkaline Phosphatase 107, Total Protein 6.1 L, Albumin 3.1 L, Globulin 3.0, Albumin/Globulin Ratio 1.0 L I & O for Labs for Last 24 Hours: Intake & Output 01/25/24 01/26/24 01/27/24 01/28/24 23:59 23:59 23:59 23:59 Intake Total 830 / 1130 1740 / 1740 1080 / 1330 970 / 970 Output Total 2200 / 2200 450 / 450 1150 / 1875 725 / 725 Balance -1370 / -1070 1290 / 1290 -70 / -545 245 / 245 Weight 310 lb 6.4 oz 311 lb 6.4 oz 310 lb 6.574 oz 307 lb 6 oz Intake & Output 01/21/24 01/22/24 01/23/24 01/24/24 23:59 23:59 23:59 23:59 Intake Total 1200 / 1200 100 / 100 Output Total 1251 / 1751 1750 / 2275 775 / 775 Balance -1251 / -1751 -550 / -1075 -675 / -675 Weight 312 lb 6.99 oz 310 lb 10.101 oz 312 lb 11.2 oz Microbiology Reports for the Last 24 Hours: Microbiology 01/22/24 13:30 Blood Blood Culture - Final NO GROWTH AFTER 5 DAYS 01/22/24 13:30 Blood Blood Culture - Final NO GROWTH AFTER 5 DAYS Microbiology 01/22/24 13:30 Blood Blood Culture - Preliminary NO GROWTH AFTER 24 HOURS 01/22/24 13:30 Blood Blood Culture - Preliminary NO GROWTH AFTER 24 HOURS Constitutional: Present severe distress Head: Present normocephalic and atraumatic ENT: Present normal exam, normal oropharynx and mucous membranes moist Neck: Present normal inspection and full ROM Respiratory: Present diminished air movement and able to speak in complete sentences; Absent prolonged expiratory phase, respiratory distress, wheezes or crackles Cardiac: Present S1/S2, Tachycardia and radial pulses present GI: Present soft and distention; Absent tenderness or guarding Rectal (female): Present deferred (female): Present deferred Skin: Present intact; Absent cyanosis or jaundice Neuro: Present alert, awake and oriented x 3 Extremities: Present normal inspection; Absent clubbing or cyanosis Psychiatric: Present normal affect and cooperative Assessment and Plan *Assessment and plan (1) Obesity hypoventilation syndrome: Status: Acute Category: Medical Code(s): E66.2 - Morbid (severe) obesity with alveolar hypoventilation (2) Acute and chronic respiratory failure with hypercapnia: Status: Acute Category: Medical Code(s): J96.22 - Acute and chronic respiratory failure with hypercapnia Plan Ms. Diaz is a 63-year-old female with reported history of COPD, CKD stage IV, morbid obesity, heart failure presented to the ER with worsening respiratory distress found to be hypercarbic respiratory failure not needing noninvasive ventilator therapy pulmonary was called for further evaluation and management. Patient was off BiPAP overnight with morning ABG showed worsening hypercarbic respiratory failure. It is not clear whether patient has been using BiPAP or not at this point of time. CT chest upon admission, upper lobe interstitial changes left greater than right. No other consolidative/fibrotic changes noted. No significant emphysema appreciated. Afebrile. Hemodynamically stable. No significant leukocytosis. Respiratory viral PCR panel negative. Hospital admission July 2023 for pneumonia and hypercarbic respiratory failure. Patient was discharged home on BiPAP therapy. Continue to receive nebulization therapies. Interval update: No acute respiratory events . Stable oxygen requirements. Continue to receive Trelegy Inhaler, oxygen supplementation during the daytime and BiPAP therapy at night. Plan: Continue BiPAP therapy at 8/18 and a rate of 18 and FiO2 of 30%. Will follow-up with social work as patient was supposed to be using BiPAP therapy at night from her prior discharge from July 2023. DuoNebs 4 times daily as needed Establish care with sleep clinic as an outpatient basis. Thank you for involving pulmonary in this patient care. Will continue to follow.
--- OUTSIDE RECORDS SUMMARY | 2024-01-28 11:59 | XMS_ITS | Encounter Summary ---
Author Organization [facility] Address [address] [place] [address] Encounter Details Date Type Department Care Team Description 2023-10-07 Telephone [facility] [address] [place] [address] Stacy Crawford Medication Reconciliation was successfully completed by the [facility]. ASSESSMENT No Information TREATMENT PLAN No Information
--- OUTSIDE RECORDS SUMMARY | 2024-01-28 11:59 | XMS_ITS | Encounter Summary ---
Author Organization [facility] Address [address] [place] [address] Encounter Details Date Type Department Care Team Description 2023-09-27 Telephone [facility] [address] [place] [address] Luis Brantley The [facility] care team was unable to complete a Medication Reconciliation with the patient following discharge. ASSESSMENT No Information TREATMENT PLAN No Information
--- OUTSIDE RECORDS SUMMARY | 2024-01-28 11:59 | XMS_ITS | Encounter Summary ---
Author Organization [facility] Address [address] [place] [address] Encounter Details Date Type Department Care Team Description 2023-10-03 Telephone [facility] [address] [place] [address] Stacy London The [facility] care team was unable to complete a Medication Reconciliation with the patient following discharge. ASSESSMENT No Information TREATMENT PLAN No Information
--- OUTSIDE RECORDS SUMMARY | 2024-01-28 11:59 | XMS_ITS | Encounter Summary ---
Author Organization [facility] Address [address] [place] [address] Encounter Details Date Type Department Care Team Description 2023-10-10 Telephone [facility] [address] [place] [address] Jessica Arce A Medication Reconciliation was successfully completed by the [facility]. ASSESSMENT No Information TREATMENT PLAN No Information
--- OUTSIDE RECORDS SUMMARY | 2024-01-28 11:59 | XMS_ITS | Encounter Summary ---
Author Organization [facility] Address [facility] [place] [address] Encounter Details Date Type Department Care Team Description 2023-10-23 Telephone [facility] [address] [place] [address] Agatha Crawford Medication Reconciliation was successfully completed by the [facility] Team. ASSESSMENT No Information TREATMENT PLAN No Information
--- OUTSIDE RECORDS SUMMARY | 2024-01-28 11:59 | XMS_ITS | Encounter Summary ---
Author Organization [facility] Address [facility] [place] [address] Encounter Details Date Type Department Care Team Description 2023-10-23 Telephone [facility] [address] [place] [address] Agatha Crawford Medication Reconciliation was successfully completed by the [facility] Team. ASSESSMENT No Information TREATMENT PLAN No Information
--- OUTSIDE RECORDS SUMMARY | 2024-01-28 11:59 | XMS_ITS | Encounter Summary ---
Author Organization [facility] Address [facility] [place] [address] Encounter Details Date Type Department Care Team Description 2023-10-04 Telephone [facility] [address] [place] [address] Mareantoine Crawford Medication Reconciliation was successfully completed by the [facility]. ASSESSMENT No Information TREATMENT PLAN No Information
--- OUTSIDE RECORDS SUMMARY | 2024-01-28 11:59 | XMS_ITS | Encounter Summary ---
Author Organization [facility] Address [facility] [place] [address] Encounter Details Date Type Department Care Team Description 2023-10-23 Telephone [facility] [address] [place] [address] Agatha Crawford Medication Reconciliation was successfully completed by the [facility]. ASSESSMENT No Information TREATMENT PLAN No Information
--- OUTSIDE RECORDS SUMMARY | 2024-01-28 11:59 | XMS_ITS | Encounter Summary ---
Author Organization [facility] Address [address] [place] [address] Encounter Details Date Type Department Care Team Description 2023-09-16 Telephone [facility] [address] [place] [address] Luis Crawford Medication Reconciliation was successfully completed by the [facility]. ASSESSMENT No Information TREATMENT PLAN No Information
[2024-01-28 12:00] VITALS: BP 95/56; PULSE 70; PULSE 81; RESP 18; TEMP 36.9; O2SAT 97
--- NOTE | 2024-01-28 13:07 | EXP.DC.SUM ---
General Admission date:: 01/22/24 HPI HPI HPI: Ms. Diaz is a 63-year-old female well-known to our facility. Multiple comorbidities including diastolic heart failure, obesity hypoventilation syndrome, tobacco use disorder, morbid obesity, mood disorder. Presented to the ER because of worsening shortness of breath at home. Found to be hypercapnic in the ER. Placed on BiPAP prior to my interview. Medicine consulted for admission and further management. Necessitating ICU level of care. Pulmonology consulted to assist with treatment. Patient alert, knows her name and where she is. Is confused from baseline but able to answer simple yes/no questions. Appears in mild distress. Continuing BiPAP overnight. With normal white count, no indication for antibiotics at this time. Does not appear to have pneumonia on imaging. Appears to have purely hypercapnic respiratory failure likely secondary to COPD and obesity hypoventilation. Comprehensive respiratory panel pending Hospital Course Hospital Course Hospital Course: Patient is a 63-year-old female with chronic history of tobacco dependence, obstructive sleep apnea/BMI 52/OHS/COPD overlap on 2 L of oxygen at home who presents with shortness of air with a chronic history of heart failure with preserved ejection fraction with most recent echo EF 60%. She has chronic kidney disease stage IV with a baseline creatinine 1.6 and identified history of medical noncompliance. Presented to the ER because of worsening shortness of breath. Found to be hypercapnic in the ER with hypercapnic respiratory failure. Initiated on BiPAP due to her respiratory acidosis and confusion. Discussed case with ER physician, request admission for treatment of possible pneumonia, volume overload, hypercapnic respiratory failure. I agreed to admit for further management. Wore BiPAP. Doing well this morning. Medically stable for discharge. Acute on chronic hypoxic and hypercapnic respiratory failure Tobacco dependence BMI 52/OHS/COPD overlap Home oxygen requirement 1-2 L via nasal cannula; increased oxygen requirement and elevated CO2 in the ER. -Pulmonology consulted, patient qualifies for overnight BiPAP. Continue BiPAP therapy at 18/8 with a rate of 18 and FiO2 30%. DuoNebs every 6 hours scheduled. -Numerous admissions in the past for hypercapnic respiratory failure due to her obesity hypoventilation syndrome. likely secondary to not having BiPAP at home and recurrent hypercapnia at night due to her COPD and obesity. -Goal sats greater 90%. Tolerating 2 L daily BiPAP initiating criteria -ABG morning of 01/24/2024 with pH 7.3, pCO2 70, pO2 78. Qualifies for BiPAP. Over 120 minutes of desats below 88% on overnight pulse ox. - Home oxygen requirement 2 L via nasal cannula, continue as needed, goal sats greater 90%. Met criteria with ABG this morning on day of discharge with pCO2 above 52 (70) - Patient necessitating BiPAP due to hypercapnia related to her COPD. She does not have a working diagnosis of sleep apnea Acute on chronic HFpEF (class C/NYHA IV) - Bumex 1 mg twice daily. Fluid overload has improved. Continue Bumex 1 mg twice daily. ?Continue bisoprolol, spironolactone. Avoiding SGLT2 inhibitor therapy with CKD 4 Avoiding ARNI therapy with CKD 4 Echo (06/20/2023): EF 55% ? Will need to follow-up with cardiology within 1 week. Nicotine dependence: Tobacco cessation education; NRT Chronic kidney disease stage IV Baseline creatinine 1.7-2.0. Creatinine today 1.8, improving from 2.0. Mood disorder Routine nursing interaction Continue BuSpar 20 mg daily; Abilify 5 mg daily, trazodone 100 mg nightly, and venlafaxine 75 mg daily Seizure disorder Seizure precautions, Keppra per home regimen with 500 mg twice daily PT and OT evaluated because of deconditioning. Recommend placement Exam Data for Last 24 hours Vital signs and Labs for Last 24 Hours: Temp Pulse Resp BP Pulse Ox O2 Del Method O2 Flow Rate 98.5 F 73 17 124/73 94 L Nasal Cannula 3 01/28/24 08:00 01/28/24 08:00 01/28/24 08:00 01/28/24 08:00 01/28/24 08:00 01/28/24 08:00 01/28/24 08:00 FiO2 30 01/28/24 02:00 Laboratory Results - last 24 hr 01/28/24 05:22: Sodium 139, Potassium 3.8, Chloride 99, Carbon Dioxide 36 H, Anion Gap 7.8, BUN 40 H, Creatinine 1.80 H, Estimated Creat Clear 27, Estimated GFR 28 L, Est GFR ( Amer) 34 L, Glucose 92, Calcium 8.6, Magnesium 1.7, Total Bilirubin 0.5, AST 24, ALT 9 L, Alkaline Phosphatase 89, Total Protein 5.9 L, Albumin 2.9 L, Globulin 3.0, Albumin/Globulin Ratio 1.0 L I & O for Last 24 hours: Intake & Output 01/25/24 01/26/24 01/27/24 01/28/24 23:59 23:59 23:59 23:59 Intake Total 830 / 1130 1740 / 1740 1080 / 1330 970 / 970 Output Total 2200 / 2200 450 / 450 1150 / 1875 725 / 725 Balance -1370 / -1070 1290 / 1290 -70 / -545 245 / 245 Weight 140.795 kg 141.249 kg 140.8 kg 139.423 kg Microbiology Reports for the Last 24 Hours: Microbiology 01/22/24 13:30 Blood Blood Culture - Final NO GROWTH AFTER 5 DAYS 01/22/24 13:30 Blood Blood Culture - Final NO GROWTH AFTER 5 DAYS Constitutional Constitutional: no acute distress and obese *Routine HEENT Exam Head: Present normocephalic Eye: Present EOMI and PERRL ENT: Present mucous membranes moist *Routine Neck Exam Neck: Present supple; Absent lymphadenopathy *Routine Respiratory Exam Respiratory: Present CTA bilaterally *Routine Cardiovascular Exam Cardiovascular: Present RRR *Routine Abdominal Exam Abdominal: Present soft and normoactive bowel sounds; Absent tenderness *Routine Extremities Exam Extremities: Present edema; Absent cyanosis or clubbing *Routine Skin Exam Skin: Present warm; Absent rash *Routine Neurological Exam Neurological: Present alert and oriented X3 Results Data Completed and Pending Labs on day of discharge: Labs from last 24 hours 01/28/24 05:22 Sodium 139 Potassium 3.8 Chloride 99 Carbon Dioxide 36 H Anion Gap 7.8 BUN 40 H Creatinine 1.80 H Estimated Creat Clear 27 Estimated GFR 28 L Est GFR ( Amer) 34 L Glucose 92 Calcium 8.6 Magnesium 1.7 Total Bilirubin 0.5 AST 24 ALT 9 L Alkaline Phosphatase 89 Total Protein 5.9 L Albumin 2.9 L Globulin 3.0 Albumin/Globulin Ratio 1.0 L DS: Diagnosis Discharge Diagnosis (1) Obesity hypoventilation syndrome: Status: Acute Code(s): E66.2 - Morbid (severe) obesity with alveolar hypoventilation (2) Acute and chronic respiratory failure with hypercapnia: Status: Acute Code(s): J96.22 - Acute and chronic respiratory failure with hypercapnia Meds Home Medications and Allergies Home Medications ?Medication ?Instructions ?Recorded ?Confirmed ?Type levetiracetam 500 mg tablet 500 mg PO BID 01/26/21 01/23/24 History magnesium oxide 400 mg (241.3 mg 400 mg PO DAILY 08/23/21 01/23/24 History magnesium) tablet multivitamin 1 each PO DAILY 08/23/21 01/23/24 History ropinirole 1 mg tablet 1 mg PO HS 08/23/21 01/23/24 History trazodone 100 mg tablet 100 mg PO HS 08/07/22 01/23/24 History cholecalciferol (vitamin D3) 125 125 mcg PO DAILY 06/20/23 01/23/24 History mcg (5,000 unit) capsule omeprazole 40 mg capsule,delayed 40 mg PO DAILY 06/20/23 01/23/24 History release venlafaxine 75 mg tablet 75 mg PO DAILY 06/20/23 01/23/24 History nitroglycerin 0.4 mg sublingual 0.4 mg sublingual Q5MINP PRN Chest 08/09/23 01/23/24 History tablet Pain bisoprolol fumarate 5 mg tablet 5 mg PO DAILY 30 days #30 tabs 09/07/23 01/23/24 Rx spironolactone 25 mg tablet 25 mg PO DAILY 30 days #30 tabs 09/07/23 01/23/24 Rx albuterol sulfate 90 mcg/actuation 2 puff inhalation Q6HP PRN 01/23/24 01/23/24 History aerosol inhaler Shortness Of Breath bumetanide 1 mg tablet 1 mg PO BID #60 tabs 01/28/24 Rx buspirone 10 mg tablet 20 mg (2 x 10 mg) PO DAILY #30 tabs 01/28/24 Rx fluticasone fur. 100 mcg-umeclid 1 inh inhalation DAILY #60 ea 01/28/24 Rx 62.5 mcg-vilant 25 mcg inhalat.powder (Trelegy Ellipta) New Prescriptions to Start Prescriptions: bumetanide Beltran lEizondo buspirone Beltran Elizondo [id number] [Trelegy Ellipta] Beltran Elizondo Allergies Allergy/AdvReac Type Severity Reaction Status Date / Time Penicillins Allergy Verified 08/09/23 06:26 Discharge Plan Disposition Patient Disposition: Xfer SNF Discharge Order Discharge Orders: Discharge Order (Routine); Ordered 01/28/24 Ordered By: Beltran Elizondo Follow up Plan Prescriptions/Medication Reconciliation: New buspirone 10 mg Tablet 20 mg PO DAILY Qty: 30 0RF Trelegy Ellipta 100-62.5-25 mcg Blister With Device 1 inh inhalation DAILY Qty: 60 0RF Continued multivitamin 1 EACH tablet 1 each PO DAILY ropinirole 1 MG tablet 1 mg PO HS magnesium oxide 400 MG tablet 400 mg PO DAILY trazodone 100 mg tablet 100 mg PO HS cholecalciferol (vitamin D3) 125 mcg (5,000 unit) capsule 125 mcg PO DAILY Patient Comments: TAKE ONE CAPSULE BY MOUTH EVERY DAY omeprazole 40 mg Capsule,Delayed Release(Dr/Ec) 40 mg PO DAILY venlafaxine 75 mg tablet 75 mg PO DAILY Patient Comments: TAKE ONE TABLET BY MOUTH EVERY DAY nitroglycerin 0.4 mg tablet, sublingual 0.4 mg sublingual Q5MINP PRN (Reason: Chest Pain) Patient Comments: DISSOLVE 1 TABLET UNDER THE TONGUE EVERY 5 MINUTES NEEDED FOR CHEST PAIN. DO NOT EXCEED A TOTAL OF 3 DOSES IN 15 MINUTES. IF NO RELIEF AFTER 3 DOSES CALL 911/GO TO ER spironolactone 25 mg Tablet 25 mg PO DAILY 30 Days Qty: 30 0RF bisoprolol fumarate 5 mg Tablet 5 mg PO DAILY 30 Days Qty: 30 0RF levetiracetam 500 MG tablet 500 mg PO BID albuterol sulfate 90 mcg/actuation HFA aerosol inhaler 2 puff INHALATION Q6HP PRN (Reason: Shortness Of Breath) Patient Comments: INHALE TWO PUFFS BY MOUTH EVERY 6 HOURS Changed bumetanide 1 mg tablet 1 mg PO BID Qty: 60 0RF Patient Comments: TAKE ONE TABLET BY MOUTH EVERY OTHER DAY Problem Reconciliation Problems Reviewed?: Yes Patient Discharge Instructions ACTIVITY: Continue current activity DIET: continue same diet Patient Instructions: DI for Chronic Obstructive Pulmonary Disease, DI for Respiratory Failure Print Language: Sammarinese Providers Primary Care Provider: Provider,Referral Admit Provider: Michael Luke Attending Provider: Michael Luke
--- NOTE | 2024-01-28 13:22 | PC.NURSE ---
Tried to call report to [facility] and they hung up phone
--- NOTE | 2024-01-28 13:23 | PC.NURSE ---
RN reached the other Nurses station and spoke with Ryann NATION and this RN noted to that nurse that the other nurses station hung up after answering. Ryann to walk number over to nurses station and to have them called back.
--- NOTE | 2024-01-28 13:29 | PC.NURSE ---
[facility] called back and said they did not have a discharge summary. This RN assured it had been faxed over. They have still not taken report.
== END 2024-01-28 16:00 | DRG 291 ==
LOC: ER 13:36 → 2ND 16:40
PROVIDERS: Internal Medicine Pulmonary Disease; Admitting Provider Internal Medicine Adolescent Medicine; Emergency Provider Student in an Organized Health Care Education/Training Program; Visit Provider Internal Medicine Adolescent Medicine
DX: I50.33 Acute on chronic diastolic (congestive) heart failure (principal); J96.21 Acute and chronic respiratory failure with hypoxia; J96.22 Acute and chronic respiratory failure with hypercapnia; E66.2 Morbid (severe) obesity with alveolar hypoventilation; Z68.43 Body mass index [BMI] 50.0-59.9, adult; N18.4 Chronic kidney disease, stage 4 (severe); F33.3 Major depressive disorder, recurrent, severe with psychotic symptoms; F17.210 Nicotine dependence, cigarettes, uncomplicated; G40.909 Epilepsy, unspecified, not intractable, without status epilepticus; Z79.899 Other long term (current) drug therapy; Z99.81 Dependence on supplemental oxygen; T14.8XXA Other injury of unspecified body region, initial encounter; W57.XXXA Bitten or stung by nonvenomous insect and other nonvenomous arthropods, initial encounter
CPT/HCPCS: 36415; 71045; 71250; 80053; 82803; 82962; 83735; 84484; 85025; 85378; 86803; 87040; 87265; 87389; 87486; 87581; 87632; 87635; 87636; 93005; 94640; 94660; 94761; 94762; 97110; 97163; 97166; 97530; 99285; J1644; J1939; J2919; J3475; J7620

== ENCOUNTER 2024-04-02 19:07 | Inpatient (IN) | payer MEDICARE, MEDICAID, SELFPAY ==
[2024-04-02 19:09] VITALS: BP 103/61; PULSE 78; RESP 16; TEMP 36.6; O2SAT 91; BMI 52.7
--- NOTE | 2024-04-02 20:15 | ED_ITS ---
Discharge Plan Disposition Patient Disposition: Admitted Condition: Fair Clinical Impressions Clinical Impression: SHAYLA (acute kidney injury) Discharge ED Provider: Antonio Lieberman Adult HPI General Chief complaint: Weakness Stated complaint: FTT, APS case?/unable to care for self Time Seen by Provider: 04/02/24 20:15 Mode of Arrival: Ambulatory Source of Information: Patient Limitations: No Limitations Description of Symptoms (Recalled from ER Triage Doc. by RN): pt here due to caregiver being seen. pt is bedbound and needs total care and while her is being seen there is no one else to care for her. History of Present Illness HPI narrative: Patient presents for evaluation of generalized weakness. History limited secondary to mental status changes, reportedly chronic in nature. Patient has had decreased p.o. intake and decreased mobility according to at bedside. Denies any pain at this time. Please note that above description of symptoms, in this electronic medical record under categorization of recalled from ER triage doctor by RN are reflective of an initial nursing assessment, however, is not reflective of my full history and physical exam that was personally taken and clarified. Consequentially, this preceding description of symptoms, which may include the patient's categorized chief complaint in the EMR, do not reflect my personal clinical impression, and the ultimate description of history of present illness and patient stated complaints should be deferred to this section of the note. Unless stated otherwise or congruent with this section of the note, additional signs, symptoms, or incongruence should be interpreted as inaccurate with my clinical impression. Related Data Home Medications ?Medication ?Instructions ?Recorded ?Confirmed levetiracetam 500 mg tablet 500 mg PO BID 01/26/21 01/23/24 magnesium oxide 400 mg (241.3 mg 400 mg PO DAILY 08/23/21 01/23/24 magnesium) tablet multivitamin 1 each PO DAILY 08/23/21 01/23/24 ropinirole 1 mg tablet 1 mg PO HS 08/23/21 01/23/24 trazodone 100 mg tablet 100 mg PO HS 08/07/22 01/23/24 cholecalciferol (vitamin D3) 125 125 mcg PO DAILY 06/20/23 01/23/24 mcg (5,000 unit) capsule omeprazole 40 mg capsule,delayed 40 mg PO DAILY 06/20/23 01/23/24 release venlafaxine 75 mg tablet 75 mg PO DAILY 06/20/23 01/23/24 nitroglycerin 0.4 mg sublingual 0.4 mg sublingual Q5MINP PRN Chest 08/09/23 01/23/24 tablet Pain albuterol sulfate 90 mcg/actuation 2 puff inhalation Q6HP PRN 01/23/24 01/23/24 aerosol inhaler Shortness Of Breath Previous Rx's ?Medication ?Instructions ?Recorded bisoprolol fumarate 5 mg tablet 5 mg PO DAILY 30 days #30 tabs 09/07/23 spironolactone 25 mg tablet 25 mg PO DAILY 30 days #30 tabs 09/07/23 bumetanide 1 mg tablet 1 mg PO BID #60 tabs 01/28/24 buspirone 10 mg tablet 20 mg (2 x 10 mg) PO DAILY #30 tabs 01/28/24 fluticasone fur. 100 mcg-umeclid 1 inh inhalation DAILY #60 ea 01/28/24 62.5 mcg-vilant 25 mcg inhalat.powder (Trelegy Ellipta) Allergies Allergy/AdvReac Type Severity Reaction Status Date / Time Penicillins Allergy Verified 08/09/23 06:26 [facility] [place] Disclaimer: The information contained in this section may have been updated after the patient was seen, as this information can be updated by other users. Medical History (Updated 04/02/24 @ 23:40 by Paula Mckeon RN) D-dimer, elevated Body lice infestation Acute and chronic respiratory failure with hypercapnia Mood disorder Tobacco dependence CKD (chronic kidney disease) stage 4, GFR 15-29 ml/min BMI 50.0-59.9, adult Obesity hypoventilation syndrome Respiratory failure with hypoxia and hypercapnia Kidney stone History of back pain History of gastroesophageal reflux (GERD) Congestive heart failure Seizure disorder COPD (chronic obstructive pulmonary disease) Surgical History History of cholecystectomy History of section Family History Other Family history of acute congestive heart failure Family history of cancer Family history of myocardial infarction Social History Smoking Status: Current every day smoker tobacco type: cigarettes packs per day: 1 second hand exposure: Yes alcohol intake: never counseling given: No substance use type: denies use counseling given: No current occupational status: retired, disabled and other Travel in the last 8 weeks: None adopted: No caregiver/support person: No foster care: No household members: spouse housing: house marital status: 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; 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 pets and animals: Yes pets and animals: cat(s) Hx Recent Travel: No sexually active: No caffeine: Yes physical activity: none cony/zoroastrianism: Hoahaoism special cony needs: No working smoke detector in home: Yes fire extinguisher in home: Yes carbon monox detector in home: No firearms in home: No do you feel safe at home: Yes victim of physical abuse: No victim of emotional abuse: No victim of sexual abuse: No would you like helpful sources: No Have you lived/traveled outside [place] in past 30 days?: No Contact w/someone who lives/traveled outside [place] past 30 days?: No Exposure to someone with infectious disease in past 14 days?: No Do you have a fever (greater than 100.4 F or 38 C)?: No Have you tested positive for COVID-19: No Exposed to someone with COVID-19 in past 14 days?: No Do you have a sore throat?: No Do you have a cough?: No Do you have any weakness?: No Do you have any diarrhea?: No Are you experiencing any unusual bleeding?: No Do you have any muscle aches/pain?: No Do you have any abdominal pain?: No Are you experiencing loss of taste or smell?: No Other Medical History Have you received the Flu Vaccine for this season: No Have you received the Pneumonia Vaccine: No ROS Obtained: Yes other As per HPI Physical Exam General General appearance: alert and in no apparent distress Head Head exam: atraumatic and normocephalic Eye Eye exam: Present normal appearance Neck Neck exam: Present normal inspection Chest Chest inspection: Present normal inspection and symmetric chest wall rise Respiratory Respiratory exam: Present normal lung sounds bilaterally; Absent respiratory distress Cardiovascular Cardiovascular exam: Present regular rate and normal rhythm Abdominal Exam Abdominal exam: Present soft Neurological Exam Neurological exam: Present alert and oriented X3 Psychiatric Psychiatric exam: Present normal affect and normal mood Skin Skin exam: Present warm and dry Medical Decision Making Medical Records Medical records reviewed: Yes I reviewed the patient's medical records. Screening: Per USPSTF and CDC recommendations, given the prevalence of disease in our region, it is our hospital?s policy to screen for HIV and viral Hepatitis for all patients aged 18 and over and those with ongoing risk factors. Harjinder Inquiry Pt receiving controlled substance: No Vital Signs: 04/02/24 19:09 04/02/24 23:37 Temperature 97.8 F 97.6 F Temperature Source Oral Oral Pulse Rate 80 Pulse Rate [Left] 78 Respiratory Rate 16 20 Blood Pressure 120/64 Blood Pressure [Left Arm] 103/61 L Blood Pressure Mean [Left Arm] 75 Blood Pressure Source Automatic Cuff Blood Pressure Position Supine 02 Sat by Pulse Oximetry 91 L Oxygen Delivery Method Nasal Cannula Room Air Oxygen Flow Rate (LPM) 2 Lab Data Lab Results 04/02/24 21:16: WBC 5.0, RBC 4.11 L, Hgb 11.7 L, Hct 40.5, MCV 98.5, MCH 28.5, M CHC 28.9 L, RDW 14.2, Plt Count 189, MPV 10.8 H, Neut % (Auto) 71.0, Lymph % (Auto) 19.6, Faulkner % (Auto) 8.6, Eos % (Auto) 0.2, Baso % (Auto) 0.6, Neut # (Auto) 3.6, Lymph # (Auto) 1.0, Faulkner # (Auto) 0.4, Eos # (Auto) 0.0, Baso # (Auto) 0.0, Sodium 136, Potassium 5.3 H, Chloride 104, Carbon Dioxide 34 H, A nion Gap 3.3 L, BUN 68 H, Creatinine 2.80 H, Estimated Creat Clear 14, Estimated GFR 17 L*, Est GFR ( Amer) 21 L, Glucose 110 H, Calcium 8.4, Magnesium 2.4 H, Total Bilirubin 0.3, AST 29, ALT 12, Alkaline Phosphatase 147 H, Total Creatine Kinase 29 L, Total Protein 6.9, Albumin 3.5, Globulin 3.4 H, A lbumin/Globulin Ratio 1.0 L, Lipase 94 04/02/24 21:16 04/02/24 21:16 Orders (Tests/Meds): ED MEDICATIONS Generic Name Dose Route Start Last Admin Trade Name Freq PRN Reason Stop Dose Admin Acetaminophen 650 mg 04/03/24 00:13 Acetaminophen 325mg Tab PO 05/03/24 00:12 Q4HP PRN Fever or Mild Pain (1-3) Al Hydrox/Mg Hydrox/Simethicone 30 ml 04/03/24 00:13 Aluminum/Magnesium/Simethicone 30ml Udc PO 05/03/24 00:12 QIDP PRN Dyspepsia Bisoprolol Fumarate 5 mg 04/03/24 09:00 Bisoprolol 5mg Tablet PO 05/03/24 08:59 DAILY CARLY Buspirone HCl 20 mg 04/03/24 09:00 Buspirone Hcl 10 Mg Tablet PO 05/03/24 08:59 DAILY CARLY Fluticasone/Umeclidinium/Vilanterol 1 puff 04/03/24 09:00 Fluticasone/Umeclidin/Vilanter 100/62.5/25mcg Inhaler IH 05/03/24 08:59 DAILY CARLY Heparin Sodium (Porcine) 5,000 unit 04/03/24 00:15 Heparin Sodium 5,000 Unit/Ml Vial SUBCUT 05/03/24 00:14 Q8H [facility] Sodium Chloride 1,000 mls @ 75 mls/hr 04/03/24 00:15 Sod Chlor 0.9% 1000ml Bag IV 04/04/24 00:14 .[id number] CARLY Levetiracetam 500 mg 04/03/24 09:00 Levetiracetam 500 Mg Tablet PO 05/03/24 08:59 BID CARLY Morphine Sulfate 2 mg 04/03/24 01:09 Morphine 2mg/Ml Syringe IV 05/03/24 01:08 Q6HP PRN Severe Pain (7-10) Nicotine 21 mg 04/03/24 00:13 Nicotine 21mg/24hr Patch TD 05/03/24 00:12 DAILYP PRN Nicotine Cravings Nitroglycerin 0.4 mg 04/03/24 01:13 Nitroglycerin 0.4mg Sl Tablet SL 05/03/24 01:12 Q5MINP PRN Chest Pain Non-Formulary Medication 125 mcg 04/03/24 09:00 Cholecalciferol (Vitamin D3) PO 05/03/24 08:59 DAILY CARLY Non-Formulary Medication 100 mg 04/03/24 21:00 Trazodone PO 05/03/24 20:59 HS CARLY Non-Formulary Medication 75 mg 04/03/24 09:00 Venlafaxine PO 05/03/24 08:59 DAILY CARLY Ondansetron HCl 4 mg 04/03/24 00:13 Ondansetron 4mg/2ml Vial IV 05/03/24 00:12 Q8HP PRN Nausea Oxycodone HCl 5 mg 04/03/24 01:07 Oxycodone 5mg Immediate Release Tablet PO 05/03/24 01:06 Q6HP PRN Moderate Pain (4-6) Promethazine HCl 25 mg 04/03/24 00:13 Promethazine Hcl 25mg/Ml 1ml Vial IV 05/03/24 00:12 Q6HP PRN Nausea And Vomiting Ropinirole HCl 1 mg 04/03/24 21:00 Ropinirole 1mg Tablet PO 05/03/24 20:59 HS CARLY Sodium Chloride 10 ml 04/03/24 00:11 Sodium Chloride 0.9% 10ml Flush Syringe IV 05/03/24 00:10 NEEDED PRN Maintain IV Site Sodium Chloride 25 ml 04/03/24 00:13 Sodium Chloride 0.9% 25ml Bag IV 05/03/24 00:12 NEEDED PRN for Use with IV Promethazine Sodium Zirconium Cyclosilicate 10 gm 04/03/24 00:15 Lokelma 5gm Packet PO 04/03/24 13:01 [facility] ORDERS Category Date Time Status XR chest portable Stat Exams 04/02/24 20:23 Completed CBC w/Auto Diff [Complete Blood Count Auto Diff] Stat Lab 04/02/24 21:16 Completed CK [Creatine Kinase] Stat Lab 04/02/24 21:16 Completed CMP [Comprehensive Metabolic Panel] Stat Lab 04/02/24 21:16 Completed Lipase Stat Lab 04/02/24 21:16 Completed MAG [Magnesium] Stat Lab 04/02/24 21:16 Completed Urinalysis and Microscopic Stat Lab 04/02/24 20:23 Ordered Medical Decision Narrative: Patient with history and exam per above presenting for evaluation of generalized weakness Diagnoses considered include encephalopathy, delirium, no clinical evidence to suggest traumatic etiology, differential also includes electrolyte abnormality, acute kidney injury, among others ED workup and treatment included: ED MEDICATIONS Generic Name Dose Route Start Last Admin Trade Name Freq PRN Reason Stop Dose Admin Acetaminophen 650 mg 04/03/24 00:13 Acetaminophen 325mg Tab PO 05/03/24 00:12 Q4HP PRN Fever or Mild Pain (1-3) Al Hydrox/Mg Hydrox/Simethicone 30 ml 04/03/24 00:13 Aluminum/Magnesium/Simethicone 30ml Udc PO 05/03/24 00:12 QIDP PRN Dyspepsia Bisoprolol Fumarate 5 mg 04/03/24 09:00 Bisoprolol 5mg Tablet PO 05/03/24 08:59 DAILY CARLY Buspirone HCl 20 mg 04/03/24 09:00 Buspirone Hcl 10 Mg Tablet PO 05/03/24 08:59 DAILY CARLY Fluticasone/Umeclidinium/Vilanterol 1 puff 04/03/24 09:00 Fluticasone/Umeclidin/Vilanter 100/62.5/25mcg Inhaler IH 05/03/24 08:59 DAILY CARLY Heparin Sodium (Porcine) 5,000 unit 04/03/24 00:15 Heparin Sodium 5,000 Unit/Ml Vial SUBCUT 05/03/24 00:14 Q8H CARLY Sodium Chloride 1,000 mls @ 75 mls/hr 04/03/24 00:15 Sod Chlor 0.9% 1000ml Bag IV 04/04/24 00:14 .[id number] CARLY Levetiracetam 500 mg 04/03/24 09:00 Levetiracetam 500 Mg Tablet PO 05/03/24 08:59 BID CARLY Morphine Sulfate 2 mg 04/03/24 01:09 Morphine 2mg/Ml Syringe IV 05/03/24 01:08 Q6HP PRN Severe Pain (7-10) Nicotine 21 mg 04/03/24 00:13 Nicotine 21mg/24hr Patch TD 05/03/24 00:12 DAILYP PRN Nicotine Cravings Nitroglycerin 0.4 mg 04/03/24 01:13 Nitroglycerin 0.4mg Sl Tablet SL 05/03/24 01:12 Q5MINP PRN Chest Pain Non-Formulary Medication 125 mcg 04/03/24 09:00 Cholecalciferol (Vitamin D3) PO 05/03/24 08:59 DAILY CARLY Non-Formulary Medication 100 mg 04/03/24 21:00 Trazodone PO 05/03/24 20:59 HS CARLY Non-Formulary Medication 75 mg 04/03/24 09:00 Venlafaxine PO 05/03/24 08:59 DAILY CARLY Ondansetron HCl 4 mg 04/03/24 00:13 Ondansetron 4mg/2ml Vial IV 05/03/24 00:12 Q8HP PRN Nausea Oxycodone HCl 5 mg 04/03/24 01:07 Oxycodone 5mg Immediate Release Tablet PO 05/03/24 01:06 Q6HP PRN Moderate Pain (4-6) Promethazine HCl 25 mg 04/03/24 00:13 Promethazine Hcl 25mg/Ml 1ml Vial IV 05/03/24 00:12 Q6HP PRN Nausea And Vomiting Ropinirole HCl 1 mg 04/03/24 21:00 Ropinirole 1mg Tablet PO 05/03/24 20:59 HS CARLY Sodium Chloride 10 ml 04/03/24 00:11 Sodium Chloride 0.9% 10ml Flush Syringe IV 05/03/24 00:10 NEEDED PRN Maintain IV Site Sodium Chloride 25 ml 04/03/24 00:13 Sodium Chloride 0.9% 25ml Bag IV 05/03/24 00:12 NEEDED PRN for Use with IV Promethazine Sodium Zirconium Cyclosilicate 10 gm 04/03/24 00:15 Lokelma 5gm Packet PO 04/03/24 13:01 [facility] ORDERS Category Date Time Status XR chest portable Stat Exams 04/02/24 20:23 Completed CBC w/Auto Diff [Complete Blood Count Auto Diff] Stat Lab 04/02/24 21:16 Completed CK [Creatine Kinase] Stat Lab 04/02/24 21:16 Completed CMP [Comprehensive Metabolic Panel] Stat Lab 04/02/24 21:16 Completed Lipase Stat Lab 04/02/24 21:16 Completed MAG [Magnesium] Stat Lab 04/02/24 21:16 Completed Urinalysis and Microscopic Stat Lab 04/02/24 20:23 Ordered Labs were independently interpreted by me, significant for acute kidney injury Patient will benefit from [facility] for further workup and treatment. Patient accepted for admission by hospitalist. Critical Care Critical Care Time Critical Care Time: No
--- NOTE | 2024-04-02 20:23 | XR_ITS ---
PROCEDURE INFORMATION: Exam: XR Chest Exam date and time: 04/02/2024 8:30 PM Age: 63 years old Clinical indication: Shortness of breath; Additional info: SOA TECHNIQUE: Imaging protocol: Radiologic exam of the chest. Views: 1 view. COMPARISON: CT CHEST WO CON 01/22/2024 3:08 PM FINDINGS: Lungs: No acute cardiopulmonary findings. Pleural spaces: Unremarkable. No pleural effusion. No pneumothorax. Heart/Mediastinum: Unremarkable. No cardiomegaly. Bones/joints: Healed left-sided rib fractures. IMPRESSION: No acute cardiopulmonary findings.
[2024-04-02 21:56] LABS: Albumin Level 3.5 g/dl (3.5-5.0); Chloride 104 mmol/L (98-107); Sodium 136 mmol/L (136-145)
[2024-04-02 21:57] LABS: Hematocrit 40.5 % (37.0-47.0); Hemoglobin 11.7 g/dL (12.2-16.2); Potassium 5.3 mmoL/L (3.5-5.1); Red Blood Count 4.11 M/mm3 (4.20-5.40)
[2024-04-02 21:58] LABS: Basophils % 0.6 % (0.1-2.0); Eosinophils % 0.2 % (0.1-12.0); Lymphocytes % 19.6 % (10-50); Mean Corpuscular HGB Conc 28.9 g/dL (31.8-35.4); Mean Corpuscular Hemoglobin 28.5 pg (27.0-31.2); Mean Corpuscular Volume 98.5 fl (81-99); Mean Platelet Volume 10.8 fl (7.4-10.4); Monocytes # 0.4 K/mm3 (0.1-1.0); Monocytes % 8.6 % (1.7-9.3); Neutrophils # 3.6 K/mm3 (1.8-7.8); Platelet Count 189 K/mm3 (142-424); Red Cell Distribution Width 14.2 % (11.5-17.5)
[2024-04-02 21:59] LABS: Alanine Aminotransferase 12 U/L (12-78); Alkaline Phosphatase 147 U/L (38-126); Anion Gap 3.3 mEq/L (5-15); Aspartate Amino Transferase 29 U/L (14-36); Bilirubin,Total 0.3 mg/dl (0.2-1.3); Blood Urea Nitrogen 68 mg/dl (7-17); Calcium 8.4 mg/dl (8.4-10.2); Carbon Dioxide 34 mmol/L (22.0-30.0); Creatine Kinase 29 U/L (30-135); Creatinine Clearance Estimated 14 mL/min (50-200); Estimated Glomerular Filt Rate 17 ml/min (>60); GFR (African American) 21 ML/MIN (>60); Globulin 3.4 g/dL (1.3-3.2); Glucose 110 mg/dl (74-100); Lipase 94 U/L (23-300); Total Protein,Serum 6.9 g/dl (6.3-8.2)
[2024-04-02 22:00] LABS: Magnesium 2.4 mg/dl (1.6-2.3)
--- NOTE | 2024-04-02 22:39 | ECG_ITS ---
APPROVED REPORT Exam: Resting ECG HR:71 bpm ECG Measurements Heart Rate 71 AXES SD 179 P 78 QRSd 105 QRS 228 QT 392 T 70 QTc 415 Conclusion SINUS RHYTHM INDETERMINATE AXIS ABNORMAL ECG UNCONFIRMED REPORT Electronically signed by : PAO GRUBER, 04/03/2024 06:48:22
--- NOTE | 2024-04-02 23:19 | PC.NURSE ---
reports called to [facility]
[2024-04-02 23:37] VITALS: BP 120/64; PULSE 80; RESP 20; TEMP 36.4; O2SAT 93
[2024-04-03] VITALS (20 sets, daily range): BP systolic 115–187; BP diastolic 64–89; PULSE 65–99; RESP 15–30; TEMP 36–36.8; O2SAT 93–100; BMI 53.0; BMI 59.3
--- NOTE | 2024-04-03 00:04 | P.HP_ITS ---
History of Present Illness *Admission Date: 04/02/24 *Reason for visit:: Weakness, SOB, decreased p.o. intake, dysuria *History of present illness: 63-year-old with past medical history of diastolic heart failure, obesity hypoventilation syndrome, tobacco use disorder, morbid obesity, seizures, CKD, generalized weakness, GERD, mood disorder. Patient last admitted to this institution 01/21 to 01/27 for acute on chronic respiratory failure management. Patient presents with shortness of breath, malaise, decreased p.o. intake for several days. Patient states at baseline she uses a wheelchair, but recently too weak to perform activities of daily living. Admits to 1.5 months of [facility] ea. Also complains of dysuria x 1 month. Denies any recent antibiotic use. Recently hospitalized at this hospital 01/21 to 01/27 for acute on chronic respiratory distress. States at baseline she uses 2 L oxygen. Denies fevers, known sick contacts, abdominal discomfort, chest pain. Patient's in emergency room with patient and collaborates the story. Creatinine 2.8. Potassium 5.3. BUN 68. Patient admitted for acute on chronic renal dysfunction. I reviewed patient's chest x-ray at time of admission noting no acute findings. [facility] Disclaimer: The information contained in this section may have been updated after the patient was seen, as this information can be updated by other users. Medical History (Updated 04/03/24 @ 01:44 by Montez Pate MD) D-dimer, elevated Body lice infestation Acute and chronic respiratory failure with hypercapnia Mood disorder Tobacco dependence CKD (chronic kidney disease) stage 4, GFR 15-29 ml/min BMI 50.0-59.9, adult Obesity hypoventilation syndrome Respiratory failure with hypoxia and hypercapnia Kidney stone History of back pain History of gastroesophageal reflux (GERD) Congestive heart failure Seizure disorder COPD (chronic obstructive pulmonary disease) Surgical History History of cholecystectomy History of section Family History Other Family history of acute congestive heart failure Family history of cancer Family history of myocardial infarction Social History Smoking Status: Current every day smoker tobacco type: cigarettes packs per day: 1 second hand exposure: Yes alcohol intake: never counseling given: No substance use type: denies use counseling given: No current occupational status: retired, disabled and other Travel in the last 8 weeks: None adopted: No caregiver/support person: No foster care: No household members: spouse housing: house marital status: 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; 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 pets and animals: Yes pets and animals: cat(s) Hx Recent Travel: No sexually active: No caffeine: Yes physical activity: none cony/samaritan: Religious special cony needs: No working smoke detector in home: Yes fire extinguisher in home: Yes carbon monox detector in home: No firearms in home: No do you feel safe at home: Yes victim of physical abuse: No victim of emotional abuse: No victim of sexual abuse: No would you like helpful sources: No Have you lived/traveled outside [place] in past 30 days?: No Contact w/someone who lives/traveled outside US past 30 days?: No Exposure to someone with infectious disease in past 14 days?: No Do you have a fever (greater than 100.4 F or 38 C)?: No Have you tested positive for COVID-19: No Exposed to someone with COVID-19 in past 14 days?: No Do you have a sore throat?: No Do you have a cough?: No Do you have any weakness?: No Do you have any diarrhea?: No Are you experiencing any unusual bleeding?: No Do you have any muscle aches/pain?: No Do you have any abdominal pain?: No Are you experiencing loss of taste or smell?: No Other Medical History Have you received the Flu Vaccine for this season: No Have you received the Pneumonia Vaccine: No Review of Systems Review of Systems Review of systems:: pertinent systems reviewed and negative unless documented below Constitutional Constitutional: Reports system reviewed and no additional complaints, except as documented Meds Home Medications and Allergies Home Medications ?Medication ?Instructions ?Recorded ?Confirmed ?Type levetiracetam 500 mg tablet 500 mg PO BID 01/26/21 01/23/24 History magnesium oxide 400 mg (241.3 mg 400 mg PO DAILY 08/23/21 01/23/24 History magnesium) tablet multivitamin 1 each PO DAILY 08/23/21 01/23/24 History ropinirole 1 mg tablet 1 mg PO HS 08/23/21 01/23/24 History trazodone 100 mg tablet 100 mg PO HS 08/07/22 01/23/24 History cholecalciferol (vitamin D3) 125 125 mcg PO DAILY 06/20/23 01/23/24 History mcg (5,000 unit) capsule omeprazole 40 mg capsule,delayed 40 mg PO DAILY 06/20/23 01/23/24 History release venlafaxine 75 mg tablet 75 mg PO DAILY 06/20/23 01/23/24 History nitroglycerin 0.4 mg sublingual 0.4 mg sublingual Q5MINP PRN Chest 08/09/23 01/23/24 History tablet Pain bisoprolol fumarate 5 mg tablet 5 mg PO DAILY 30 days #30 tabs 09/07/23 01/23/24 Rx spironolactone 25 mg tablet 25 mg PO DAILY 30 days #30 tabs 09/07/23 01/23/24 Rx albuterol sulfate 90 mcg/actuation 2 puff inhalation Q6HP PRN 01/23/24 01/23/24 History aerosol inhaler Shortness Of Breath bumetanide 1 mg tablet 1 mg PO BID #60 tabs 01/28/24 Rx buspirone 10 mg tablet 20 mg (2 x 10 mg) PO DAILY #30 tabs 01/28/24 Rx fluticasone fur. 100 mcg-umeclid 1 inh inhalation DAILY #60 ea 01/28/24 Rx 62.5 mcg-vilant 25 mcg inhalat.powder (Trelegy Ellipta) New Prescriptions to Start Prescriptions: Allergies Allergy/AdvReac Type Severity Reaction Status Date / Time Penicillins Allergy Verified 08/09/23 06:26 Exam Data for Last 24 hours Vital signs and Labs for Last 24 Hours: Temp Pulse Resp BP Pulse Ox O2 Del Method O2 Flow Rate 97.6 F 80 20 120/64 91 L Room Air 2 04/02/24 23:37 04/02/24 23:37 04/02/24 23:37 04/02/24 23:37 04/02/24 19:09 04/02/24 23:37 04/02/24 19:09 Laboratory Results - last 24 hr 04/02/24 21:16: WBC 5.0, RBC 4.11 L, Hgb 11.7 L, Hct 40.5, MCV 98.5, MCH 28.5, MCHC 28.9 L, RDW 14.2, Plt Count 189, MPV 10.8 H, Neut % (Auto) 71.0, Lymph % (Auto) 19.6, Summers % (Auto) 8.6, Eos % (Auto) 0.2, Baso % (Auto) 0.6, Neut # (Auto) 3.6, Lymph # (Auto) 1.0, Summers # (Auto) 0.4, Eos # (Auto) 0.0, Baso # (Auto) 0.0, Sodium 136, Potassium 5.3 H, Chloride 104, Carbon Dioxide 34 H, Anion Gap 3.3 L, BUN 68 H, Creatinine 2.80 H, Estimated Creat Clear 14, Estimated GFR 17 L*, Est GFR ( Amer) 21 L, Glucose 110 H, Calcium 8.4, Magnesium 2.4 H, Total Bilirubin 0.3, AST 29, ALT 12, Alkaline Phosphatase 147 H , Total Creatine Kinase 29 L, Total Protein 6.9, Albumin 3.5, Globulin 3.4 H, Albumin/Globulin Ratio 1.0 L, Lipase 94 I & O for Last 24 hours: Intake & Output 03/31/24 04/01/24 04/02/24 04/03/24 23:59 23:59 23:59 23:59 Weight 122.47 kg Constitutional Constitutional: moderate distress and obese *Routine HEENT Exam Head: Present normocephalic Eye: Present EOMI ENT: Present mucous membranes moist *Routine Neck Exam Neck: Present supple and full ROM *Routine Respiratory Exam Respiratory: Present distant breath sounds *Routine Cardiovascular Exam Cardiovascular: Present RRR, Normal S1 and Normal S2 *Routine Abdominal Exam Abdominal: Present soft, normoactive bowel sounds and obese *Routine Rectal Exam Rectal:: deferred *Routine Genitalia Exam Genitalia:: deferred *Routine Extremities Exam Extremities: Present full ROM, pulses intact and normal capillary refill *Routine Skin Exam Skin: Present intact and dry *Routine Neurological Exam Neurological: Present alert and oriented X3 Assessment and Plan *Assessment and plan (1) SHAYLA (acute kidney injury): Status: Acute Category: Medical Code(s): N17.9 - Acute kidney failure, unspecified (2) Chronic hypoxemic respiratory failure: Status: Acute Category: Medical Code(s): J96.11 - Chronic respiratory failure with hypoxia (3) Mood disorder: Status: Acute Category: Medical Code(s): F39 - Unspecified mood [affective] disorder (4) Tobacco dependence: Status: Acute Category: Medical Code(s): F17.200 - Nicotine dependence, unspecified, uncomplicated (5) CKD (chronic kidney disease) stage 4, GFR 15-29 ml/min: Status: Acute Category: Medical Code(s): N18.4 - Chronic kidney disease, stage 4 (severe) (6) Acute on chronic heart failure with preserved ejection fraction (HFpEF): Status: Acute Category: Medical Code(s): I50.33 - Acute on chronic diastolic (congestive) heart failure (7) Obesity hypoventilation syndrome: Status: Acute Category: Medical Code(s): E66.2 - Morbid (severe) obesity with alveolar hypoventilation (8) Seizure disorder: Status: Acute Category: Medical Code(s): G40.909 - Epilepsy, unspecified, not intractable, without status epilepticus (9) Morbid obesity: Status: Acute Category: Medical Code(s): E66.01 - Morbid (severe) obesity due to excess calories (10) Congestive cardiac failure: Status: Acute Qualifiers: Heart failure type: unspecified Heart failure chronicity: unspecified Qualified Code(s): I50.9 - Heart failure, unspecified Category: Medical Code(s): I50.9 - Heart failure, unspecified (11) Chronic kidney disease: Status: Acute Qualifiers: Chronic kidney disease stage: stage 4 (severe) Qualified Code(s): N18.4 - Chronic kidney disease, stage 4 (severe) Category: Medical Code(s): N18.9 - Chronic kidney disease, unspecified (12) Diarrhea: Status: Acute Category: Medical Code(s): R19.7 - Diarrhea, unspecified (13) Dysuria: Status: Acute Category: Medical Code(s): R30.0 - Dysuria Plan 63-year-old with past medical history of diastolic heart failure, obesity hypoventilation syndrome, tobacco use disorder, morbid obesity, seizures, CKD, generalized weakness, GERD, mood disorder. Patient last admitted to this institution 01/21 to 01/27 for acute on chronic respiratory failure management. Patient presents with shortness of breath, malaise, decreased p.o. intake for several days. Patient also admits to 1 month of dysuria and diarrhea. Patient admitted for acute on chronic renal dysfunction. Problems as listed below. Imaging/labwork reviewed at time of admission: ?N/A 136, K5.3, CL 104, serum bicarb 34, BUN 68, CR 2.8, estimated GFR 17, GLU 110, MAG 2.4, alk phos 147, AST 29, ALT 12, CPK 29, ALB 3.5, WBC 5.0, Hgb 11.7, PLT 189. Lipase 94. CPK 29. I will recheck CMP, CBC, mag in AM. Dysuria: ? Could possibly indicate UTI. However, patient states symptoms have been occurring for 1 month. Will check UA. Patient afebrile without leukocytosis at time of hospital presentation. Will not start antibiotics unless procalcitonin elevated or UA shows definitive signs of infection. Will also check blood cultures at time of hospital admission. ?Start Pyridium 100 mg p.o. 3 times daily x 2 days Acute on chronic diarrhea causing dehydration: ? Check GI panel. Correct electrolytes as needed. No GI available on weekends, so recommend patient follow-up with GI in clinic as outpatient after hospital disposition. Check procalcitonin, and if elevated consider starting antibiotics for infectious gastroenteritis. SHAYLA superimposed on CKD: ?Reviewed records and noted patient's baseline creatinine tends to be around 1.6. Currently 2.8 at time of admission. ? Cautious use of normal saline 75 cc/h x 24 hours, hold. Watch closely for signs of volume overload. Diastolic heart failure: ? Reviewed patient's last echocardiogram noting EF 60% with preserved systolic function. Hold Bumex and cautious use of IV fluids throughout hospitalization. ?I personally reviewed patient's chest x-ray at time of admission noting no cardiopulmonary distress or signs of pulmonary vascular congestion. Obesity hypoventilation syndrome: Ordered CPAP at night and as needed naps. Seizures Keppra 500 mg p.o. twice daily Tobacco use: Nitro patch 21 mg transdermal daily as needed nicotine cravings Generalized weakness: Consult PT/OT. Patient wheelchair-bound at baseline. Doubt patient will except short-term rehab even if she qualifies. GERD: Omeprazole 40 mg p.o. daily Mood disorder: Effexor 75 mg p.o. daily MDM Copa: Moderate. Patient suffering from SHAYLA superimposed on CKD with symptomatic symptoms of weakness, shortness of breath, malaise, decreased p.o. intake. Data: High. See above. Patient's acted as independent historian during my interview with patient emergency room. I spoke at length with the emergency room doctor and we both agree patient requires admission for SHAYLA superimposed on CKD cautious rehydration in the setting of diastolic heart failure. Risk: Moderate. Prescription drug management as noted above including MIVF. 35 minutes of total care time spent on patient by Dr. Pate 04/03/2024
[2024-04-03] MEDS: 0.9 % SODIUM CHLORIDE 1000ML 1,000 ML 75 ML IV (01:05)
[2024-04-03] MEDS: LOKELMA 5GM PACKET 10 GM PO (01:05)
[2024-04-03] MEDS: HEPARIN SODIUM 5,000 UNIT/ML VIAL 5000 UNIT SUBCUT ×3 (01:05→16:35)
[2024-04-03 01:20] LABS: Microscopic, Urine URINE MICROSCOPIC (MICROSCOPIC)
[2024-04-03 01:24] LABS: Appearance,Urine CLEAR (Clear); Bilirubin,Urine Negative (Negative); Blood, Urine Negative (Negative); Color,Urine YELLOW (Yellow); Glucose,Urine (UA) Negative (Negative); Ketones,Urine Negative (Negative); Leukocyte Esterase,Urine TRACE (Negative); Nitrate,Urine POSITIVE (Negative); PH,Urine 5.5 (5.0-8.5); Protein,Urine Negative (Negative); Urobilinogen,Urine 0.2 EU/dl (0.2)
[2024-04-03 01:50] LABS: Bacteria,Urine 1+ /lpf
[2024-04-03] MEDS: NYSTATIN TOPICAL POWDER 30GM 10 GM TP (01:50)
[2024-04-03 01:56] LABS: Adenovirus,PCR Not Detected (NotDetected); Bordetella Pertussis Not Detected (NotDetected); Chlamydophila Pneumoniae, PCR Not Detected (NotDetected); Coronavirus 19, PCR Not Detected (NotDetected); Coronavirus 229E Not Detected (NotDetected); Coronavirus NL63 Not Detected (NotDetected); Coronavirus OC43 Not Detected (NotDetected); Coronovirus HKU1,PCR Not Detected (NotDetected); Human Metapneumovirus Not Detected (NotDetected); Influenza A, PCR Not Detected (NotDetected); Influenza AH1, 2009 Not Detected (NotDetected); Influenza AH1, PCR Not Detected (NotDetected); Influenza AH3,PCR Not Detected (NotDetected); Influenza B, PCR Not Detected (NotDetected); Mycoplasma Pneumoniae, PCR Not Detected (NotDetected); Parainfluenza 1, PCR Not Detected (NotDetected); Parainfluenza 2, PCR Not Detected (NotDetected); Parainfluenza 3, PCR Not Detected (NotDetected); Parainfluenza 4, PCR Not Detected (NotDetected); Respiratory Syncytial Virus Not Detected (NotDetected); Rhinovirus/Enterovirus Not Detected (NotDetected)
[2024-04-03] MEDS: CEFTRIAXONE SODIUM 2 GM in 0.9 % SODIUM CHLORIDE 100 ML IV (03:49)
--- NOTE | 2024-04-03 04:04 | PC.NURSE ---
Med rec completed via external. patient unaware of what she takes.
--- NOTE | 2024-04-03 06:28 | PC.NURSE ---
Patient is alert to self mainly, states her name and birthday, Rio is aware of mentation and stated that is how she was in ER with . Patient stares into space and is slow to respond, but will answer some questions. Patient gets tired of questions and will refuse to answer. Incontinent of the brief, purewick in place. Patient soiled home brief on arrival to floor. Bath was given. Seizure pads in place. 2L NC, baseline home. Patient states she does not use CPAP at home. Call light in reach.
[2024-04-03 07:27] LABS: Albumin Level 3.3 g/dl (3.5-5.0); Chloride 106 mmol/L (98-107); Sodium 139 mmol/L (136-145)
[2024-04-03 07:30] LABS: Alanine Aminotransferase 10 U/L (12-78); Alkaline Phosphatase 142 U/L (38-126); Aspartate Amino Transferase 26 U/L (14-36); Bilirubin,Total 0.2 mg/dl (0.2-1.3); Blood Urea Nitrogen 68 mg/dl (7-17); Calcium 8.4 mg/dl (8.4-10.2); Carbon Dioxide 31 mmol/L (22.0-30.0); Creatinine Clearance Estimated 15 mL/min (50-200); Estimated Glomerular Filt Rate 18 ml/min (>60); GFR (African American) 22 ML/MIN (>60); Globulin 3.4 g/dL (1.3-3.2); Glucose 104 mg/dl (74-100); Total Protein,Serum 6.7 g/dl (6.3-8.2)
[2024-04-03 07:31] LABS: Magnesium 2.3 mg/dl (1.6-2.3)
[2024-04-03 08:15] LABS: Basophils % 0.6 % (0.1-2.0); Eosinophils % 0.9 % (0.1-12.0); Hematocrit 40.2 % (37.0-47.0); Hemoglobin 11.6 g/dL (12.2-16.2); Lymphocytes % 22.1 % (10-50); Mean Corpuscular HGB Conc 28.9 g/dL (31.8-35.4); Mean Corpuscular Hemoglobin 28.6 pg (27.0-31.2); Mean Platelet Volume 10.6 fl (7.4-10.4); Monocytes % 9.8 % (1.7-9.3); Neutrophils # 3.1 K/mm3 (1.8-7.8); Platelet Count 163 K/mm3 (142-424); Red Blood Count 4.06 M/mm3 (4.20-5.40); Red Cell Distribution Width 14.1 % (11.5-17.5); White Blood Count 4.7 K/mm3 (4.8-10.8)
[2024-04-03 08:16] LABS: Monocytes # 0.5 K/mm3 (0.1-1.0)
--- NOTE | 2024-04-03 08:20 | HMH.PHAINT1 ---
Pharmacy Intervention Comments: HOME MEDICATION LIST VERIFIED USING LIST FROM OUTPATIENT PHARMACY
[2024-04-03 09:01] LABS: NT Pro Brain Natriuretic Pep. 16400 pg/mL (0-125)
[2024-04-03] MEDS: FLUTICASONE/UMECLIDIN/VILANTER 100/62.5/25MCG INHALER 1 PUFF IH (09:41)
--- NOTE | 2024-04-03 10:02 | HMH.PTEV ---
Physical Therapy Evaluation Rehab PT IP Evaluation Start: 04/03/24 01:28 Freq: ONCE Status: Active Protocol: Document 04/03/24 09:55 ASHLEY (Rec: 04/03/24 10:01 ASHLEY [id number]) Subjective/History History History Per H&P: 63-year-old with past medical history of diastolic heart failure, obesity hypoventilation syndrome, tobacco use disorder , morbid obesity, seizures, CKD, generalized weakness, GERD, mood disorder. Patient last admitted to this institution 01/21 to 01/27 for acute on chronic respiratory failure management. Patient presents with shortness of breath, malaise, decreased p.o . intake for several days. Patient states at baseline she uses a wheelchair, but recently too weak to perform activities of daily living. Admits to 1.5 months of diarrhea. Also complains of dysuria x 1 month. Denies any recent antibiotic use. Recently hospitalized at this hospital 01/21 to 01/27 for acute on chronic respiratory distress. States at baseline she uses 2 L oxygen. Denies fevers, known sick contacts, abdominal discomfort, chest pain. Patient's in emergency room with patient and collaborates the story. Creatinine 2.8. Potassium 5.3 . BUN 68. Patient admitted for acute on chronic renal dysfunction. I reviewed patient's chest x-ray at time of admission noting no acute findings. Subjective Subjective Pt lethargic and with difficulty answering questions initially. Pt able to confirm she lives at home with her . Pt uses a w/c and a hospital bed. Pt reports she mostly stays in the bed. Pt reports she used to stand and transfer but reports it has been weeks since she last stood. New diagnosis of cancer in past 12 No months? Rehab PT IP Eval Objective Appearance Patient Behavior Appropriate,Cooperative Patient Orientation Person Difficulty following instructions mild Speech Pattern Mumbled Ambulation Patient Able to Ambulate No Balance Ability to Arise Unable Sitting Balance Leans or slides in chair Standing Balance Unsteady Transfers Bed Transfer Ability Total/Dependent (100%) Sit to Stand Bed Transfer Ability Moderate x 2 (50% assist) Rehab PT IP prob,goals,plan Problems Date of Evaluation: 04/03/24 PT IP Problems Bed Mobility,Transfers,Gait, Balance,Safety Rehab Potential Rehab Potential Good Plan PT Intervention Plan Bed Mobility,Transfers,Gait, Balance,Safety,Therapeutic Exercise Other Intervention Plan 1-2 times PT Plan Frequency Daily Duration LOS Discharge Goals Bed Transfer Ability Maximum x 1 (75% assist) Sit to Stand Chair Transfer Ability Moderate x 1 (50% assist) Discharge Plan PT Discharge Plan Initial physical therapy evaluation performed. Patient presents below baseline at this time in functional mobility, transfers, and strength. Pt not safe to return home at this time d/t current level of functional mobility. PT recommending short-term rehabilitation stay upon d/c from [facility]. Pt would benefit from skilled PT while at [facility] to prevent further functional decline and maximize safety with mobility. Eval Complexity Eval Charge Codes 01063 - High Complexity PHYSICIAN CERTIFICATION: I certify the specified therapy services for Destiny Diaz are required, authorized, and reviewed every 30 days.
[2024-04-03] MEDS: 0.9 % SODIUM CHLORIDE 1000ML 1,000 ML 333 ML IV (10:05)
[2024-04-03] MEDS: NYSTATIN TOPICAL POWDER 30GM TP ×4 (10:11→21:29)
--- NOTE | 2024-04-03 10:17 | SW/DCPLANNER ---
Addendum entered by Oralia De RN 04/09/24 11:21: [facility] able [facility] patient today. Number for report is [phone] and fax number is [phone]. Patient is aware of transfer. Attempted to contact , but no answer to phone call. Addendum entered by [facility] 04/07/24 10:46: Patient information has been faxed to [facility]. Clementina mcleod/ [facility] reviewed and stated that she can start a precert on this patient. I will update patient and MD. Addendum entered by [facility] 04/07/24 10:11: Patient information has also been faxed to [facility]. The following facilities are still reviewing information: [facility] and [facility]. Addendum entered by [facility] 04/06/24 15:41: Elizabeth mcleod/ [facility] and [facility] until to accept patient. Patient information has also been faxed to [facility]. Addendum entered by [facility] 04/06/24 08:59: Patient is alert and oriented at this time. I did discuss discharge planning w/ patient this AM. PT/OT evaluated patient and recommended placement. Patient is agreeable to placement at this time. [facility] will not have a bed open till the end of the week. Patient is agreeable for information to be faxed to [facility], [facility], [facility] and [id number]. I will follow up w/ facilities this afternoon. Per MD patient is medically stable for discharge. Original Note: MD and I attempted to speak w/ patient regarding discharge planning. Patient is not able to answer questions at this time. I will follow up w/ patient again later today.
[2024-04-03] MEDS: levETIRAcetam 500 MG in 0.9 % SODIUM CHLORIDE 100 ML 210 MG IV ×2 (10:28→22:19)
--- NOTE | 2024-04-03 10:36 | HMH.OTEV ---
OT Inpatient Evaluation Rehab OT IP Evaluation Start: 04/03/24 01:28 Freq: ONCE Status: Active Protocol: Document 04/03/24 10:32 NIELS (Rec: 04/03/24 10:36 NIELS [id number]) Rehab OT IP Assessment Subjective History 63-year-old with past medical history of diastolic heart failure, obesity hypoventilation syndrome, tobacco use disorder, morbid obesity, seizures, CKD, generalized weakness, GERD, mood disorder. Patient last admitted to this institution 01/21 to 01/27 for acute on chronic respiratory failure management. Patient presents with shortness of breath, malaise, decreased p.o. intake for several days. Patient states at baseline she uses a wheelchair, but recently too weak to perform activities of daily living. Admits to 1.5 months of diarrhea. Also complains of dysuria x 1 month . Denies any recent antibiotic use. Recently hospitalized at this hospital 01/21 to 01/27 for acute on chronic respiratory distress. States at baseline she uses 2 L oxygen. Denies fevers, known sick contacts, abdominal discomfort, chest pain. Patient's in emergency room with patient and collaborates the story. Creatinine 2.8. Potassium 5.3 . BUN 68. Patient admitted for acute on chronic renal dysfunction. I reviewed patient's chest x-ray at time of admission noting no acute findings. I haven't stood for a while. Patient lives at home with in 1 story home with 2 JANNY. provides 05/11 care for patient. Subjective Instructed patient on safety awareness to complete bed mobility from supine->sit @ EOB->stand x3 with needing Max to MOd AX2. Patient demonstrated good dynamic sitting balance while at EOB. Partial standing during each transfer. Stood <30 secs each time. TD from EOB->supine. Objective Patient Orientation Person,Place,Name,Age Right Upper Extremity Gross ROM WFL Left Upper Extremity Gross ROM WFL Bed Mobility bed mobility - supine/sit Assist Level Maximum x 2 (75% assist) Transfer Training Sit/Stand Transfer Assist Level Moderate x 2 (50% assist) Rehab OT IP prob,goals,plan Problems Date of Evaluation: 04/03/24 OT IP Problems Bed Mobility,Transfers,Balance ,Self care,Safety Rehab Potential Rehab Potential Good Equipment Needs Assistive Devices None / NA Plan OT intervention Plan Bed Mobility,Transfers,Balance ,Self care,Safety,Therapeutic Exercise OT Plan Frequency Daily Duration LOS Discharge Goals Bed Mobility Ability Assistance x1 Sit to Stand Chair Transfer Ability Maximum x 2 (75% assist) Discharge Plan OT Discharge Plan REcommend placement at this time or continue 24/ care at home. Patient is requiring increase more assistance for bed mobility and transfers from previous admission. REcommend therapy placement prior to returning home to improve fx'l mobility would benefit patient. Patient to continue skilled OT IP services while here at [facility]. Eval Complexity Eval Charge Codes 01626 - Low Complexity PHYSICIAN CERTIFICATION: I certify the specified therapy services for Destiny Diaz are required, authorized, and reviewed every 30 days.
[2024-04-03 10:41] LABS: Lactate Venous 1.5 mmol/L (0.4-2.0); VBG Base Excess 2.7 mmol/L (-2.4-2.3); VBG HCO3 31.2 mmol/L (23-30); VBG Oxygen Saturation 91.8 % (50-70); VBG PO2 64.9 mmol/L (28-40); VBG Total CO2 33.9 mmol/L (23-27)
[2024-04-03 10:47] LABS: VBG PCO2 87.4 mmol/L (35-51); VBG PH 7.17 mmol/L (7.31-7.41)
--- NOTE | 2024-04-03 12:20 | EXP.PULM.CON ---
History of Present Illness History of present illness: Ms. Diaz is a 63-year-old female with reported history of COPD, CKD stage IV, morbid obesity, heart failure presented presented with worsening respiratory distress weakness decreased p.o. intake. She is also being treated for urinary tract infection. Patient subsequently admitted for hypercarbic respiratory failure needing noninvasive ventilator therapy and pulmonary was called for further evaluation and management. She also supposed to use BiPAP therapy at night at 8/18 and FiO2 of 30%. [facility] Disclaimer: The information contained in this section may have been updated after the patient was seen, as this information can be updated by other users. Medical History D-dimer, elevated Body lice infestation Acute and chronic respiratory failure with hypercapnia Mood disorder Tobacco dependence CKD (chronic kidney disease) stage 4, GFR 15-29 ml/min BMI 50.0-59.9, adult Obesity hypoventilation syndrome Respiratory failure with hypoxia and hypercapnia Kidney stone History of back pain History of gastroesophageal reflux (GERD) Congestive heart failure Seizure disorder COPD (chronic obstructive pulmonary disease) Surgical History History of cholecystectomy History of section Family History Other Family history of acute congestive heart failure Family history of cancer Family history of myocardial infarction Social History (Updated 04/03/24 @ 02:03 by Leticia Shelton RN) Smoking Status: Current every day smoker tobacco type: cigarettes packs per day: 1 second hand exposure: Yes alcohol intake: never counseling given: No substance use type: denies use counseling given: No current occupational status: retired, disabled and other Travel in the last 8 weeks: None adopted: No caregiver/support person: No foster care: No household members: spouse housing: house marital status: 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; 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 pets and animals: Yes pets and animals: cat(s) Hx Recent Travel: No sexually active: No caffeine: Yes physical activity: none cony/yarsanism: [employer] special cony needs: No working smoke detector in home: Yes fire extinguisher in home: Yes carbon monox detector in home: No firearms in home: No do you feel safe at home: Yes victim of physical abuse: No victim of emotional abuse: No victim of sexual abuse: No would you like helpful sources: No Have you lived/traveled outside [place] in past 30 days?: No Contact w/someone who lives/traveled outside US past 30 days?: No Exposure to someone with infectious disease in past 14 days?: No Do you have a fever (greater than 100.4 F or 38 C)?: No Have you tested positive for COVID-19: No Exposed to someone with COVID-19 in past 14 days?: No Do you have a sore throat?: No Do you have a cough?: No Do you have any weakness?: No Are you experiencing any nausea/vomitting?: No Do you have any diarrhea?: No Are you experiencing any unusual bleeding?: No Do you have any muscle aches/pain?: No Do you have any abdominal pain?: No Are you experiencing loss of taste or smell?: No Review of Systems Review of Systems Review of systems:: unable to obtain Review of systems (narrative): Patient lethargic, arousable however not responding appropriately to verbal commands Pulmonology Exam Inpatient Vital signs and Labs for Last 24 Hours: Temp Pulse Resp BP Pulse Ox O2 Del Method O2 Flow Rate 97.5 F L 71 20 116/68 93 L BiPAP 2 04/03/24 08:00 04/03/24 08:00 04/03/24 08:00 04/03/24 08:00 04/03/24 08:00 04/03/24 11:00 04/03/24 09:00 FiO2 40 04/03/24 11:30 Laboratory Results - last 24 hr 04/02/24 21:16: WBC 5.0, RBC 4.11 L, Hgb 11.7 L, Hct 40.5, MCV 98.5, MCH 28.5, MCHC 28.9 L, RDW 14.2, Plt Count 189, MPV 10.8 H, Neut % (Auto) 71.0, Lymph % (Auto) 19.6, [place] % (Auto) 8.6, Eos % (Auto) 0.2, Baso % (Auto) 0.6, Neut # (Auto) 3.6, Lymph # (Auto) 1.0, [place] # (Auto) 0.4, Eos # (Auto) 0.0, Baso # (Auto) 0.0, Sodium 136, Potassium 5.3 H, Chloride 104, Carbon Dioxide 34 H, Anion Gap 3.3 L, BUN 68 H, Creatinine 2.80 H, Estimated Creat Clear 14, Estimated GFR 17 L*, Est GFR ( Amer) 21 L, Glucose 110 H, Calcium 8.4, Magnesium 2.4 H, Total Bilirubin 0.3, AST 29, ALT 12, Alkaline Phosphatase 147 H, Total Creatine Kinase 29 L, Total Protein 6.9, Albumin 3.5, Globulin 3.4 H, Albumin/Globulin Ratio 1.0 L, Lipase 94 04/03/24 00:00: Procalcitonin 0.090 04/03/24 01:10: Urine Color Yellow, Urine Appearance Clear, Urine pH 5.5, Ur Specific [place] 1.020, Urine Protein Negative, Urine Glucose (UA) Negative, Urine Ketones Negative, Urine Blood Negative, Urine Nitrate Positive A, Urine Bilirubin Negative, Urine Urobilinogen 0.2, Ur Leukocyte Esterase Trace, Urine WBC 3-5, Ur Squamous Epith Cells 3-5, Urine Bacteria 1+ 04/03/24 01:40: Chlamy pneumoniae PCR Not detected, Adenovirus (PCR) Not detected, B. pertussis DNA (PCR) Not detected, Coronavirus OC43 (PCR) Not detected, Coronavirus HKU1 (PCR) Not detected, Coronavirus 229E (PCR) Not detected, SARS-CoV-2 (PCR) Not detected, Coronavirus NL63 (PCR) Not detected, Human Metapneumovir PCR Not detected, Influenza A (H1) PCR Not detected, Influ A (H1N1/09) PCR Not detected, Influenza A (H3) PCR Not detected, Influenza Type A (PCR) Not detected, Influenza Type B (PCR) Not detected, M. pneumoniae (PCR) Not detected, Parainfluenza 1 (PCR) Not detected, Parainfluenza 2 (PCR) Not detected, Parainfluenza 3 (PCR) Not detected, Parainfluenza 4 (PCR) Not detected, RSV (PCR) Not detected, Entero/Rhino (PCR) Not detected 04/03/24 06:40: Sodium 139, Potassium 5.0, Chloride 106, Carbon Dioxide 31 H, Anion Gap 7.0, BUN 68 H, Creatinine 2.60 H, Estimated Creat Clear 15, Estimated GFR 18 L*, Est GFR ( Amer) 22 L, Glucose 104 H, Calcium 8.4, Magnesium 2.3, Total Bilirubin 0.2, AST 26, ALT 10 L, Alkaline Phosphatase 142 H, Total Protein 6.7, Albumin 3.3 L, Globulin 3.4 H, Albumin/Globulin Ratio 1.0 L 04/03/24 07:37: WBC 4.7 L, RBC 4.06 L, Hgb 11.6 L, Hct 40.2, MCV 99.0, MCH 28.6, MCHC 28.9 L, RDW 14.1, Plt Count 163, MPV 10.6 H, Neut % (Auto) 66.0, Lymph % (Auto) 22.1, [place] % (Auto) 9.8 H, Eos % (Auto) 0.9, Baso % (Auto) 0.6, Neut # (Auto) 3.1, Lymph # (Auto) 1.0, [place] # (Auto) 0.5, Eos # (Auto) 0.0, Baso # (Auto) 0.0 04/03/24 07:54: NT-Pro-B Natriuret Pep 57247 H, TSH 2.20 04/03/24 10:09: VBG pH 7.17 L, VBG pCO2 87.4 H, VBG pO2 64.9 H, VBG HCO3 31.2 H, VBG Total CO2 33.9 H, VBG O2 Saturation 91.8 H, VBG Base Excess 2.7 H, VBG Lactic Acid 1.5 I & O for Labs for Last 24 Hours: Intake & Output 03/31/24 04/01/24 04/02/24 04/03/24 23:59 23:59 23:59 23:59 Intake Total 0 / 0 Output Total 100 / 100 Balance -100 / -100 Weight 270 lb 302 lb Constitutional: Present severe distress Head: Present normocephalic and atraumatic ENT: Present normal exam, normal oropharynx and mucous membranes moist Neck: Present normal inspection and full ROM Respiratory: Present prolonged expiratory phase and respiratory distress; Absent wheezes or able to speak in complete sentences Cardiac: Present S1/S2, Tachycardia and radial pulses present GI: Present soft and distention; Absent tenderness or guarding Rectal (female): Present deferred (female): Present deferred Skin: Present intact; Absent cyanosis or jaundice Neuro: Present awake; Absent alert or oriented x 3 Extremities: Present normal inspection; Absent clubbing or cyanosis Psychiatric: Present normal affect and cooperative Meds Home Medications and Allergies Home Medications ?Medication ?Instructions ?Recorded ?Confirmed ?Type levetiracetam 500 mg tablet 500 mg PO BID 01/26/21 04/03/24 History magnesium oxide 400 mg (241.3 mg 400 mg PO DAILY 08/23/21 04/03/24 History magnesium) tablet ropinirole 1 mg tablet 1 mg PO HS 08/23/21 04/03/24 History omeprazole 40 mg capsule,delayed 40 mg PO DAILY 06/20/23 04/03/24 History release venlafaxine 75 mg tablet 75 mg PO DAILY 06/20/23 04/03/24 History bisoprolol fumarate 5 mg tablet 5 mg PO DAILY 30 days #30 tabs 09/07/23 04/03/24 Rx spironolactone 25 mg tablet 25 mg PO DAILY 30 days #30 tabs 09/07/23 04/03/24 Rx albuterol sulfate 90 mcg/actuation 2 puff inhalation Q6HP PRN 01/23/24 04/03/24 History aerosol inhaler Shortness Of Breath buspirone 10 mg tablet 20 mg (2 x 10 mg) PO DAILY #30 tabs 01/28/24 04/03/24 Rx bumetanide 1 mg tablet 1 mg PO Q48H 04/03/24 04/03/24 History New Prescriptions to Start Prescriptions: Allergies Allergy/AdvReac Type Severity Reaction Status Date / Time Penicillins Allergy Verified 08/09/23 06:26 Results Laboratory Findings 04/03/24 07:37 04/03/24 06:40 Abnormal lab findings: Abnormal Labs 04/02/24 04/03/24 04/03/24 21:16 01:10 06:40 WBC RBC 4.11 L Hgb 11.7 L MCHC 28.9 L MPV 10.8 H [place] % (Auto) VBG pH VBG pCO2 VBG pO2 VBG HCO3 VBG Total CO2 VBG O2 Saturation VBG Base Excess Potassium 5.3 H Carbon Dioxide 34 H 31 H Anion Gap 3.3 L BUN 68 H 68 H Creatinine 2.80 H 2.60 H Estimated GFR 17 L* 18 L* Est GFR ( Amer) 21 L 22 L Glucose 110 H 104 H Magnesium 2.4 H ALT 10 L Alkaline Phosphatase 147 H 142 H Total Creatine Kinase 29 L NT-Pro-B Natriuret Pep Albumin 3.3 L Globulin 3.4 H 3.4 H Albumin/Globulin Ratio 1.0 L 1.0 L Urine Nitrate Positive A 04/03/24 04/03/24 04/03/24 07:37 07:54 10:09 WBC 4.7 L RBC 4.06 L Hgb 11.6 L MCHC 28.9 L MPV 10.6 H [place] % (Auto) 9.8 H VBG pH 7.17 L VBG pCO2 87.4 H VBG pO2 64.9 H VBG HCO3 31.2 H VBG Total CO2 33.9 H VBG O2 Saturation 91.8 H VBG Base Excess 2.7 H Potassium Carbon Dioxide Anion Gap BUN Creatinine Estimated GFR Est GFR ( Amer) Glucose Magnesium ALT Alkaline Phosphatase Total Creatine Kinase NT-Pro-B Natriuret Pep 95555 H Albumin Globulin Albumin/Globulin Ratio Urine Nitrate Assessment and Plan *Assessment and plan (1) Acute on chronic respiratory failure with hypoxia and hypercapnia: Status: Resolved Category: Medical Code(s): J96.21 - Acute and chronic respiratory failure with hypoxia; J96.22 - Acute and chronic respiratory failure with hypercapnia Plan Ms. Diaz is a 63-year-old female with reported history of COPD, CKD stage IV, morbid obesity, heart failure presented presented with worsening respiratory distress weakness decreased p.o. intake. She is also being treated for urinary tract infection. Patient subsequently admitted for hypercarbic respiratory failure needing noninvasive ventilator therapy and pulmonary was called for further evaluation and management. She also supposed to use BiPAP therapy at night at 8/18 and FiO2 of 30%. Afebrile. Hemodynamically stable. Chest x-ray no dense consolidative/airspace changes. Auscultation no significant wheezing noted. Lethargic arousable but not responding appropriately verbal commands. Blood gas from this morning hypercarbic respectively pH of 7.17 pCO2 87.4. Plan: Continue BiPAP therapy at 8/18 and a rate of 18 and FiO2 to maintain O2 saturation of 90% and above Follow with repeat VBG DuoNebs every 4 hours along with Pulmicort every 12 scheduled No need for steroids or antibiotics from pulmonary standpoint. She is receiving ceftriaxone for possible UTI. Follow with improving hypercarbia and mentation improvement. History of seizure disorder.
[2024-04-03 13:44] LABS: Chloride 108 mmol/L (98-107); Potassium 5.5 mmoL/L (3.5-5.1); Sodium 136 mmol/L (136-145)
[2024-04-03] MEDS: IPRATROPIUM/ALBUTEROL 3 ML NEB IH ×3 (13:45→23:15)
[2024-04-03 13:47] LABS: Anion Gap 2.5 mEq/L (5-15); Blood Urea Nitrogen 68 mg/dl (7-17); Carbon Dioxide 31 mmol/L (22.0-30.0); Creatinine Clearance Estimated 17 mL/min (50-200); Estimated Glomerular Filt Rate 22 ml/min (>60); GFR (African American) 27 ML/MIN (>60); Glucose 86 mg/dl (74-100)
[2024-04-03 13:58] LABS: ABG Base Excess 2.2 mmol/L (-2.4-2.3); ABG HCO3 29.8 mmhg (22.0-26.0); ABG Oxygen Saturation 97 % (90-100); ABG PH 7.23 mmol/L (7.35-7.45); ABG PO2 95.7 mmhg (80-100)
[2024-04-03 14:05] LABS: Oxygen 40 %
[2024-04-03 14:06] LABS: PEEP 10; Pressure Support BIPAP 20/10; Source Left Brachial; Vent Rate 20
[2024-04-03 14:07] LABS: ABG PCO2 73.6 mmhg (35.0-45.0)
[2024-04-03 14:23] LABS: NT Pro Brain Natriuretic Pep. 14200 pg/mL (0-125)
--- NOTE | 2024-04-03 16:14 | CA_ITS ---
APPROVED REPORT EXAM: Comprehensive 2D, Doppler, and color-flow Echocardiogram Refrigeration Service Technician: Marion Lozano RT(R) Ht: 4 ft 11 in Wt: 302lbs BSA: 2.20 BP: 116/78 mmHg Indications: followup to heart failure, COPD, smoker, fatigue, ZAKI, bipap, AMS, seizure disorder, HFpEF. Patient is currently on bipap supine back with obvious tremors and motion throughtout exam. M-Mode Dimensions RVDd 3.99 cm (0.9-2.6) LA Diam 4.33 cm (1.9-4.0) LVDd 5.21 cm (3.5-5.7) LVDs 3.85 cm (3.5-5.7) IVSd 0.66 cm (0.6-1.1) PWd 0.85 cm (0.6-1.1) EF (Teich) 50.90% FS 26.10% EDV (Teich) 130.10 mL ESV (Teich) 63.90 mL LV Diastology E Decel Time 150 (160-240 msec) E/A Ratio 0.9 Mitral Valve MV E Max Dale. 93.0 (40-130 cm/s) MV A Velocity 107.0 (40-130 cm/s) E/A Ratio 0.86 MV PHT 44.0 ms Tricuspid Valve TR P. Velocity 260.00 cm/s RAP Estimate 10.00 mmHg RVSP 37.10 mmHg Left Ventricle The left ventricle is normal size. The left ventricular systolic function is normal. The left ventricular ejection fraction is within the normal range. There is increased LV wall thickness. There is a septal flattening present, suggestive of increased right-sided pressures. Transmitral Doppler flow pattern suggests impaired LV relaxation. LVEF is 60%. Right Ventricle Right ventricle is moderately dilated. Right ventricle is moderately hypokinetic. Atria The left atrium size is normal. Right atrium is moderately dilated. There is no Doppler evidence of interatrial shunt. Aortic Valve The aortic valve is mildly thickened. There is no aortic valvular stenosis. No aortic regurgitation is present. Mitral Valve The mitral valve is normal in structure. No evidence of mitral valve stenosis. Trace mitral regurgitation. Tricuspid Valve The tricuspid valve leaflets are thin and pliable. Mild tricuspid regurgitation. RVSP is 30 mmHg plus RA pressure. Pulmonic Valve The pulmonary valve is normal in structure. Trace pulmonic regurgitation. Great Vessels The aortic root is normal in size. The ascending aorta is not well-visualized. The IVC is not well-visualized. Pericardium Trivial, anterior pericardial effusion is present. No echo indications of tamponade. Other Information Study Quality: Fair Conclusion Normal LV systolic function. Moderate RV dilation with moderate reduction in RV function. RA dilation. Mild TR. RVSP 30 mmHg plus RA pressure. Electronically signed by : Santa Ramos MD 04/06/2024 08:04:55
--- NOTE | 2024-04-03 21:36 | EXP.EVENT.NO ---
#[facility] #Acute on chronic hypercapnic respiratory failure #ACute metabolic encephalopathy - VBG showesd significant CO2 retention, improving but not resolved with Bipap. - Continue Bipap for now, then nightly as CO2 improves.
[2024-04-04] VITALS (31 sets, daily range): BP systolic 93–145; BP diastolic 49–80; PULSE 69–90; RESP 14–23; TEMP 36.7–37.3; O2SAT 82–100; BMI 59.5
[2024-04-04] MEDS: HEPARIN SODIUM 5,000 UNIT/ML VIAL 5000 UNIT SUBCUT ×3 (01:30→16:42)
[2024-04-04] MEDS: CEFTRIAXONE SODIUM 2 GM in 0.9 % SODIUM CHLORIDE 100 ML IV (01:30)
[2024-04-04] MEDS: ACETAMINOPHEN 325MG TAB 650 MG PO (02:02)
--- NOTE | 2024-04-04 05:05 | PC.NURSE ---
Patient had a good night. She has been able to rest. She is easily awoken and does follow commands. She only complained of a headache. Was medicated per MAR. No other complaints.
[2024-04-04] MEDS: IPRATROPIUM/ALBUTEROL 3 ML NEB IH ×4 (06:27→23:33)
[2024-04-04] MEDS: FLUTICASONE/UMECLIDIN/VILANTER 100/62.5/25MCG INHALER 1 PUFF IH (06:28)
[2024-04-04 07:27] LABS: White Blood Count 4.1 K/mm3 (4.8-10.8)
[2024-04-04 07:28] LABS: Basophils % 0.7 % (0.1-2.0); Eosinophils % 0.2 % (0.1-12.0); Hematocrit 34.2 % (37.0-47.0); Lymphocytes % 19.7 % (10-50); Mean Corpuscular HGB Conc 29.2 g/dL (31.8-35.4); Mean Corpuscular Volume 95.8 fl (81-99); Mean Platelet Volume 10.6 fl (7.4-10.4); Monocytes % 9.2 % (1.7-9.3); Platelet Count 160 K/mm3 (142-424); Red Blood Count 3.57 M/mm3 (4.20-5.40); Red Cell Distribution Width 13.8 % (11.5-17.5)
[2024-04-04 07:29] LABS: Lymphocytes # 0.8 K/mm3 (0.7-4.5); Monocytes # 0.4 K/mm3 (0.1-1.0); Neutrophils # 2.9 K/mm3 (1.8-7.8)
[2024-04-04 07:30] LABS: Albumin Level 3.1 g/dl (3.5-5.0); Chloride 110 mmol/L (98-107)
[2024-04-04 07:31] LABS: Potassium 4.8 mmoL/L (3.5-5.1); Sodium 139 mmol/L (136-145)
[2024-04-04 07:33] LABS: Alanine Aminotransferase 10 U/L (12-78); Anion Gap 5.8 mEq/L (5-15); Aspartate Amino Transferase 30 U/L (14-36); Blood Urea Nitrogen 58 mg/dl (7-17); Carbon Dioxide 28 mmol/L (22.0-30.0); Creatinine Clearance Estimated 20 mL/min (50-200); Estimated Glomerular Filt Rate 27 ml/min (>60); GFR (African American) 32 ML/MIN (>60); Total Protein,Serum 6.1 g/dl (6.3-8.2)
[2024-04-04 07:34] LABS: Alkaline Phosphatase 127 U/L (38-126); Bilirubin,Total 0.4 mg/dl (0.2-1.3); Calcium 8.2 mg/dl (8.4-10.2); Glucose 65 mg/dl (74-100); Magnesium 2.2 mg/dl (1.6-2.3)
[2024-04-04 07:59] LABS: Hemoglobin 10.1 g/dL (12.2-16.2)
[2024-04-04 08:31] LABS: Lactate Venous 1.5 mmol/L (0.4-2.0); VBG Base Excess 0.8 mmol/L (-2.4-2.3); VBG HCO3 26.8 mmol/L (23-30); VBG Oxygen Saturation 86.3 % (50-70); VBG PH 7.32 mmol/L (7.31-7.41); VBG PO2 50.6 mmol/L (28-40); VBG Total CO2 28.4 mmol/L (23-27)
[2024-04-04] MEDS: PHENAZOPYRIDINE 200MG TABLET 100 MG PO ×3 (09:06→20:15)
[2024-04-04] MEDS: BUSPIRONE HCL 10 MG TABLET 20 MG PO (09:06)
[2024-04-04] MEDS: BISOPROLOL 5MG TABLET 5 MG PO (09:06)
[2024-04-04] MEDS: MAGNESIUM OXIDE 400MG TABLET 400 MG PO (09:06)
[2024-04-04] MEDS: CHOLECALCIFEROL 1,000 UNITS (25MCG) TABLET 125 MCG PO (09:06)
[2024-04-04] MEDS: VENLAFAXINE 37.5MG TABLET 75 MG PO (09:07)
[2024-04-04] MEDS: NYSTATIN TOPICAL POWDER 30GM TP ×4 (09:27→20:16)
--- NOTE | 2024-04-04 12:04 | [facility].PTWOUND ---
Rehab Inpt Wound Evaluation Rehab IP Wound Evaluation Start: 04/03/24 13:10 Freq: ONCE Status: Active Protocol: Document 04/04/24 12:02 ALBA (Rec: 04/04/24 12:04 ALBA [id number]) Rehab PT Wound Assessment Subjective Subjective Per H&P: 63-year-old with past medical history of diastolic heart failure, obesity hypoventilation syndrome, tobacco use disorder , morbid obesity, seizures, CKD, generalized weakness, GERD, mood disorder. Patient last admitted to this institution 01/21 to 01/27 for acute on chronic respiratory failure management. Patient presents with shortness of breath, malaise, decreased p.o . intake for several days. Patient states at baseline she uses a wheelchair, but recently too weak to perform activities of daily living. Admits to 1.5 months of diarrhea. Also complains of dysuria x 1 month. Denies any recent antibiotic use. Recently hospitalized at this hospital 01/21 to 01/27 for acute on chronic respiratory distress. States at baseline she uses 2 L oxygen. Denies fevers, known sick contacts, abdominal discomfort, chest pain. Patient's in emergency room with patient and collaborates the story. Creatinine 2.8. Potassium 5.3 . BUN 68. Patient admitted for acute on chronic renal dysfunction. I reviewed patient's chest x-ray at time of admission noting no acute findings. Currently no open wounds noted. PT wound consult entered per protocol due to low rafat score. Plan/Recommendation Comment Skin assessment completed and no open sores noted at this time. No further need for PT wound care at this time. Thank you for involving the wound care team in the care of this pt. Eval Complexity Eval Charge Codes 63582 - High Complexity PHYSICIAN CERTIFICATION: I certify the specified therapy services for Destiny Diza are required, authorized, and reviewed every 30 days.
[2024-04-04] MEDS: levETIRAcetam 500 MG in 0.9 % SODIUM CHLORIDE 100 ML 210 MG IV ×2 (13:08→22:10)
[2024-04-04 14:15] LABS: VBG Base Excess 2.4 mmol/L (-2.4-2.3); VBG HCO3 27.9 mmol/L (23-30); VBG Oxygen Saturation 93.8 % (50-70); VBG PH 7.36 mmol/L (7.31-7.41); VBG PO2 65.4 mmol/L (28-40); VBG Total CO2 29.5 mmol/L (23-27)
[2024-04-04 14:19] LABS: VBG PCO2 51.1 mmol/L (35-51)
--- NOTE | 2024-04-04 16:13 | EXP.PN ---
Subjective *Date: 04/04/24 *Time: 16:13 Interval history: Patient is alert and oriented today, no acute signs of distress. Denies chest pain, shortness of breath. States she has not been compliant with her BiPAP for many weeks. Exam Data for Last 24 hours Vital signs and Labs for Last 24 Hours: Temp Pulse Resp BP Pulse Ox O2 Del Method O2 Flow Rate 98.7 F 72 18 122/68 92 L Nasal Cannula 3 04/04/24 13:00 04/04/24 14:01 04/04/24 14:01 04/04/24 14:01 04/04/24 14:01 04/04/24 15:00 04/04/24 15:00 FiO2 40 04/04/24 06:26 Laboratory Results - last 24 hr 04/03/24 01:10: Urine Color Yellow, Urine Appearance Clear, Urine pH 5.5, Ur Specific [place] 1.020, Urine Protein Negative, Urine Glucose (UA) Negative, Urine Ketones Negative, Urine Blood Negative, Urine Nitrate Positive A, Urine Bilirubin Negative, Urine Urobilinogen 0.2, Ur Leukocyte Esterase Trace, Urine WBC 3-5, Ur Squamous Epith Cells 3-5, Urine Bacteria 1+ 04/04/24 06:29: WBC 4.1 L, RBC 3.57 L, Hgb 10.1 L D, Hct 34.2 L, MCV 95.8, MCH 28.0, MCHC 29.2 L, RDW 13.8, Plt Count 160, MPV 10.6 H, Neut % (Auto) 70.0, Lymph % (Auto) 19.7, [place] % (Auto) 9.2, Eos % (Auto) 0.2, Baso % (Auto) 0.7, Neut # (Auto) 2.9, Lymph # (Auto) 0.8, [place] # (Auto) 0.4, Eos # (Auto) 0.0, Baso # (Auto) 0.0, Sodium 139, Potassium 4.8, Chloride 110 H, Carbon Dioxide 28, Anion Gap 5.8, BUN 58 H, Creatinine 1.90 H, Estimated Creat Clear 20, Estimated GFR 27 L, Est GFR ( Amer) 32 L, Glucose 65 L D, Calcium 8.2 L, Magnesium 2.2, Total Bilirubin 0.4, AST 30, ALT 10 L, Alkaline Phosphatase 127 H, Total Protein 6.1 L, Albumin 3.1 L, Globulin 3.0, Albumin/Globulin Ratio 1.0 L 04/04/24 07:44: VBG pH 7.32, VBG pCO2 53.0 H, VBG pO2 50.6 H, VBG HCO3 26.8, VBG Total CO2 28.4 H, VBG O2 Saturation 86.3 H, VBG Base Excess 0.8, VBG Lactic Acid 1.5 04/04/24 14:00: VBG pH 7.36, VBG pCO2 51.1 H, VBG pO2 65.4 H, VBG HCO3 27.9, VBG Total CO2 29.5 H, VBG O2 Saturation 93.8 H, VBG Base Excess 2.4 H, VBG Lactic Acid 2.0 I & O for Last 24 hours: Intake & Output 04/01/24 04/02/24 04/03/24 04/04/24 23:59 23:59 23:59 23:59 Intake Total 1100 / 1100 1020 / 1020 Output Total 550 / 550 950 / 950 Balance 550 / 550 70 / 70 Weight 122.47 kg 136.985 kg 137.48 kg Microbiology Reports for the Last 24 Hours: Microbiology 04/03/24 01:10 Urine,Clean Catch Urine Culture - Preliminary Gram Negative Rods 04/03/24 07:40 Blood Blood Culture - Preliminary NO GROWTH AFTER 24 HOURS 04/03/24 07:37 Blood Blood Culture - Preliminary NO GROWTH AFTER 24 HOURS Constitutional Constitutional: no acute distress and obese *Routine HEENT Exam Head: Present normocephalic Eye: Present EOMI and PERRL ENT: Present mucous membranes moist *Routine Neck Exam Neck: Present supple; Absent lymphadenopathy *Routine Respiratory Exam Respiratory: Present CTA bilaterally *Routine Cardiovascular Exam Cardiovascular: Present RRR *Routine Abdominal Exam Abdominal: Present soft and normoactive bowel sounds; Absent tenderness *Routine Extremities Exam Extremities: Absent cyanosis, clubbing or edema *Routine Skin Exam Skin: Present warm; Absent rash *Routine Neurological Exam Neurological: Present alert and oriented X3 Assessment and Plan *Assessment and plan (1) SHAYLA (acute kidney injury): Status: Acute Category: Medical Code(s): N17.9 - Acute kidney failure, unspecified (2) Chronic hypoxemic respiratory failure: Status: Acute Category: Medical Code(s): J96.11 - Chronic respiratory failure with hypoxia (3) Mood disorder: Status: Acute Category: Medical Code(s): F39 - Unspecified mood [affective] disorder (4) Tobacco dependence: Status: Acute Category: Medical Code(s): F17.200 - Nicotine dependence, unspecified, uncomplicated (5) CKD (chronic kidney disease) stage 4, GFR 15-29 ml/min: Status: Acute Category: Medical Code(s): N18.4 - Chronic kidney disease, stage 4 (severe) (6) Acute on chronic heart failure with preserved ejection fraction (HFpEF): Status: Acute Category: Medical Code(s): I50.33 - Acute on chronic diastolic (congestive) heart failure (7) Obesity hypoventilation syndrome: Status: Acute Category: Medical Code(s): E66.2 - Morbid (severe) obesity with alveolar hypoventilation (8) Seizure disorder: Status: Acute Category: Medical Code(s): G40.909 - Epilepsy, unspecified, not intractable, without status epilepticus (9) Morbid obesity: Status: Acute Category: Medical Code(s): E66.01 - Morbid (severe) obesity due to excess calories (10) Congestive cardiac failure: Status: Acute Qualifiers: Heart failure type: unspecified Heart failure chronicity: unspecified Qualified Code(s): I50.9 - Heart failure, unspecified Category: Medical Code(s): I50.9 - Heart failure, unspecified (11) Chronic kidney disease: Status: Acute Qualifiers: Chronic kidney disease stage: stage 4 (severe) Qualified Code(s): N18.4 - Chronic kidney disease, stage 4 (severe) Category: Medical Code(s): N18.9 - Chronic kidney disease, unspecified (12) Diarrhea: Status: Acute Category: Medical Code(s): R19.7 - Diarrhea, unspecified (13) Dysuria: Status: Acute Category: Medical Code(s): R30.0 - Dysuria Plan Joe Destiny 63-year-old with past medical history of diastolic heart failure, obesity hypoventilation syndrome, tobacco use disorder, morbid obesity, seizures, CKD, generalized weakness, GERD, mood disorder. Patient last admitted to this institution 01/21 to 01/27 for acute on chronic respiratory failure management. Patient presents with shortness of breath, malaise, decreased p.o. intake for several days. Patient also admits to 1 month of dysuria and diarrhea. Patient admitted for acute on chronic renal dysfunction. Problems as listed below. #Acute metabolic encephalopathy #Acute on chronic hypercapnic respiratory failure #CO2 narcosis #Obesity hypoventilation syndrome - Presented with acute metabolic encephalopathy. Initial VBG showed acute on chronic CO2 retention, pH 7.17 pCO2 80. Improved with starting BiPAP, but not resolved. Continued overnight. ? VBG this morning reassuring, no longer showing acute retention. Continue BiPAP nightly with settings 18/8 respiratory rate 18, FiO2 30%. - Patient states she has not been wearing BiPAP for the past 3+ weeks. ? Pulmonology following and assisting with care. #Physical deconditioning ? Was also found to be in a deplorable state, with feces all over her briefs. ? Patient states she is unable to ambulate herself, has been placed at SNF multiple times however her often checks her out of them previously. ? PT/OT consulted, recommended SNF. Case management assisting with placement. #UTI ? UA grossly abnormal, urine culture growing gram-negative rods. No history of MDR UTIs. fluid cultures NGTD 24 hours. ? Continue ceftriaxone day 2. #SHAYLA superimposed on CKD ? Initial creatinine 2.8. Baseline around 1.6. Improved to 1.9 with IV and oral fluid resuscitation. ? Caution with fluids given history of HFpEF. #HFpEF ? Last ECHO noting EF 60% with preserved systolic function. ? Currently stable. However BNP initially 16,400 but no signs of volume overload. In fact, she was volume down on admission with creatinine improving with fluids. ? Follow-up ECHO. ? Hold diuretics for now given SHAYLA. #Seizures - Keppra 500 mg p.o. twice daily #Tobacco use - Nitro patch 21 mg transdermal daily as needed nicotine cravings #GERD -Home PPI. #Mood disorder - Effexor 75 mg p.o.
--- NOTE | 2024-04-04 17:39 | PC.NURSE ---
PT HAS DONE WELL SINCE THIS RN ASSUMED PT CARE. SHE HAS HAD ONE BM SINCE I RECEIVED REPORT. STOOL WAS TOO FORMED TO OBTAIN A SAMPLE. SHE IS TOLERATING 3L NASAL CANNULA WALL. HER LUNG SOUNDS ARE DIMINISHED. SKIN IS C/D/I. SHE IS MORE ALERT AND TALKATIVE THIS EVENING. SHE IS PLEASANT AND LAUGHING WITH STAFF. VSS.
[2024-04-04] MEDS: TRAZODONE 50MG TABLET 100 MG PO (20:15)
[2024-04-04] MEDS: PANTOPRAZOLE 40MG TABLET 40 MG PO (20:15)
[2024-04-04] MEDS: ROPINIROLE 1MG TABLET 1 MG PO (20:15)
[2024-04-05] VITALS (12 sets, daily range): BP systolic 92–123; BP diastolic 54–70; PULSE 66–78; RESP 17–22; TEMP 36.7–37.1; O2SAT 91–98; BMI 60.5
[2024-04-05] MEDS: HEPARIN SODIUM 5,000 UNIT/ML VIAL 5000 UNIT SUBCUT ×4 (00:31→23:56)
[2024-04-05] MEDS: CEFTRIAXONE SODIUM 2 GM in 0.9 % SODIUM CHLORIDE 100 ML IV (02:12)
--- NOTE | 2024-04-05 05:29 | PC.NURSE ---
Patient was only able to tell me her name and upon assessment. She stated the year was 1962 and she was in an unknown medical facility. Lung sounds diminished. Tolerating 3L NC well. Patient wore bipap approximately 6-7 hours this shift. Patient has had a bed-bath given by staff this shift. IV antibiotics administered per JUN. Call light within patient reach.
[2024-04-05] MEDS: FLUTICASONE/UMECLIDIN/VILANTER 100/62.5/25MCG INHALER 1 PUFF IH (06:33)
[2024-04-05] MEDS: IPRATROPIUM/ALBUTEROL 3 ML NEB IH ×4 (06:33→23:00)
[2024-04-05] MEDS: BISOPROLOL 5MG TABLET 5 MG PO (08:10)
[2024-04-05] MEDS: BUSPIRONE HCL 10 MG TABLET 20 MG PO (08:10)
[2024-04-05] MEDS: MAGNESIUM OXIDE 400MG TABLET 400 MG PO (08:10)
[2024-04-05] MEDS: VENLAFAXINE 37.5MG TABLET 75 MG PO (08:10)
[2024-04-05] MEDS: CHOLECALCIFEROL 1,000 UNITS (25MCG) TABLET 125 MCG PO (08:10)
[2024-04-05] MEDS: NYSTATIN TOPICAL POWDER 30GM TP ×3 (08:14→20:13)
[2024-04-05 08:25] LABS: Albumin Level 2.9 g/dl (3.5-5.0); Chloride 107 mmol/L (98-107); Potassium 4.4 mmoL/L (3.5-5.1); Sodium 137 mmol/L (136-145)
[2024-04-05 08:27] LABS: Blood Urea Nitrogen 54 mg/dl (7-17); Creatinine Clearance Estimated 19 mL/min (50-200); Estimated Glomerular Filt Rate 25 ml/min (>60); GFR (African American) 30 ML/MIN (>60)
[2024-04-05 08:28] LABS: Alanine Aminotransferase 10 U/L (12-78); Alkaline Phosphatase 115 U/L (38-126); Anion Gap 0.4 mEq/L (5-15); Aspartate Amino Transferase 25 U/L (14-36); Bilirubin,Total 0.3 mg/dl (0.2-1.3); Calcium 8.1 mg/dl (8.4-10.2); Carbon Dioxide 34 mmol/L (22.0-30.0); Glucose 92 mg/dl (74-100); Magnesium 2.2 mg/dl (1.6-2.3); Total Protein,Serum 5.9 g/dl (6.3-8.2)
[2024-04-05 08:45] LABS: Basophils % 0.5 % (0.1-2.0); Eosinophils % 0.7 % (0.1-12.0); Hematocrit 31.2 % (37.0-47.0); Hemoglobin 9.1 g/dL (12.2-16.2); Lymphocytes # 1.2 K/mm3 (0.7-4.5); Lymphocytes % 30.4 % (10-50); Mean Corpuscular HGB Conc 29.2 g/dL (31.8-35.4); Mean Corpuscular Hemoglobin 27.8 pg (27.0-31.2); Mean Corpuscular Volume 95.4 fl (81-99); Mean Platelet Volume 9.9 fl (7.4-10.4); Monocytes # 0.5 K/mm3 (0.1-1.0); Monocytes % 12.6 % (1.7-9.3); Neutrophils # 2.3 K/mm3 (1.8-7.8); Neutrophils % 55.6 % (37.0-80.0); Platelet Count 145 K/mm3 (142-424); Red Blood Count 3.27 M/mm3 (4.20-5.40); Red Cell Distribution Width 13.9 % (11.5-17.5); White Blood Count 4.1 K/mm3 (4.8-10.8)
[2024-04-05 09:32] LABS: NT Pro Brain Natriuretic Pep. 6730 pg/mL (0-125)
[2024-04-05 10:12] LABS: VBG Base Excess 1.6 mmol/L (-2.4-2.3); VBG HCO3 27.4 mmol/L (23-30); VBG Oxygen Saturation 96.5 % (50-70); VBG PH 7.34 mmol/L (7.31-7.41); VBG PO2 86.1 mmol/L (28-40)
[2024-04-05] MEDS: BUMETANIDE 1 MG TABLET PO (10:12)
[2024-04-05 10:16] LABS: Lactate Venous 2.3 mmol/L (0.4-2.0); VBG PCO2 52.2 mmol/L (35-51)
[2024-04-05] MEDS: levETIRAcetam 500 MG in 0.9 % SODIUM CHLORIDE 100 ML 210 MG IV ×2 (10:25→21:49)
--- NOTE | 2024-04-05 10:35 | PC.NURSE ---
pt has seizure pads in place and call light within reach. no needs voiced at this time. is at [facility].
[2024-04-05 14:14] LABS: Reflex Lactic Add Lactic Reflex
[2024-04-05 15:08] LABS: Lactic Acid Follow Up (RFLX 1) 0.9 mmol/L (0.7-2.1)
[2024-04-05 15:15] LABS: Microscopic, Urine URINE MICROSCOPIC (MICROSCOPIC)
[2024-04-05 15:23] LABS: Appearance,Urine CLEAR (Clear); Bilirubin,Urine Negative (Negative); Blood, Urine Negative (Negative); Color,Urine YELLOW (Yellow); Glucose,Urine (UA) Negative (Negative); Ketones,Urine Negative (Negative); Leukocyte Esterase,Urine Negative (Negative); Nitrate,Urine POSITIVE (Negative); Protein,Urine Negative (Negative); Urobilinogen,Urine 0.2 EU/dl (0.2)
--- NOTE | 2024-04-05 15:38 | P.PN_ITS ---
Subjective *Date: 04/05/24 *Time: 17:30 Interval history: Patient is doing well today, no signs of respiratory distress. Did have orange- tinged urine in her pure wick suction catheter this afternoon. UA suggested resolving UTI but no RBCs. Continue to monitor. Exam Data for Last 24 hours Vital signs and Labs for Last 24 Hours: Temp Pulse Resp BP Pulse Ox O2 Del Method O2 Flow Rate 98.4 F 66 20 123/63 96 Nasal Cannula 3 04/05/24 08:00 04/05/24 11:47 04/05/24 11:47 04/05/24 11:47 04/05/24 11:47 04/05/24 15:00 04/05/24 15:00 FiO2 40 04/05/24 02:00 Laboratory Results - last 24 hr 04/05/24 07:45: WBC 4.1 L, RBC 3.27 L, Hgb 9.1 L, Hct 31.2 L, MCV 95.4, MCH 27.8, MCHC 29.2 L, RDW 13.9, Plt Count 145, MPV 9.9, Neut % (Auto) 55.6, Lymph % (Auto) 30.4, [place] % (Auto) 12.6 H, Eos % (Auto) 0.7, Baso % (Auto) 0.5, Neut # (Auto) 2.3, Lymph # (Auto) 1.2, [place] # (Auto) 0.5, Eos # (Auto) 0.0, Baso # (Auto) 0.0, Sodium 137, Potassium 4.4, Chloride 107, Carbon Dioxide 34 H, Anion Gap 0.4 L, BUN 54 H, Creatinine 2.00 H, Estimated Creat Clear 19, Estimated GFR 25 L, Est GFR ( Amer) 30 L, Glucose 92, Calcium 8.1 L, Magnesium 2.2, Total Bilirubin 0.3, AST 25, ALT 10 L, Alkaline Phosphatase 115, NT-Pro-B Natriuret Pep 6730 H, Total Protein 5.9 L, Albumin 2.9 L, Globulin 3.0, Albumin/Globulin Ratio 1.0 L 04/05/24 09:45: VBG pH 7.34, VBG pCO2 52.2 H, VBG pO2 86.1 H, VBG HCO3 27.4, VBG Total CO2 29.0 H, VBG O2 Saturation 96.5 H, VBG Base Excess 1.6, VBG Lactic Acid 2.3 H 04/05/24 14:45: Lactate 0.9 I & O for Last 24 hours: Intake & Output 04/02/24 04/03/24 04/04/24 04/05/24 23:59 23:59 23:59 23:59 Intake Total 1100 / 1100 1120 / 1120 640 / 640 Output Total 550 / 550 950 / 950 250 / 250 Balance 550 / 550 170 / 170 390 / 390 Weight 122.47 kg 136.985 kg 137.48 kg 139.706 kg Microbiology Reports for the Last 24 Hours: Microbiology 04/03/24 01:10 Urine,Clean Catch Urine Culture - Final Escherichia coli 04/03/24 07:40 Blood Blood Culture - Preliminary NO GROWTH AFTER 48 HOURS 04/03/24 07:37 Blood Blood Culture - Preliminary NO GROWTH AFTER 48 HOURS Constitutional Constitutional: no acute distress and obese *Routine HEENT Exam Head: Present normocephalic Eye: Present EOMI and PERRL ENT: Present mucous membranes moist *Routine Neck Exam Neck: Present supple; Absent lymphadenopathy *Routine Respiratory Exam Respiratory: Present CTA bilaterally *Routine Cardiovascular Exam Cardiovascular: Present RRR *Routine Abdominal Exam Abdominal: Present soft and normoactive bowel sounds; Absent tenderness *Routine Extremities Exam Extremities: Absent cyanosis, clubbing or edema *Routine Skin Exam Skin: Present warm; Absent rash *Routine Neurological Exam Neurological: Present alert and oriented X3 Assessment and Plan *Assessment and plan (1) SHAYLA (acute kidney injury): Status: Acute Category: Medical Code(s): N17.9 - Acute kidney failure, unspecified (2) Chronic hypoxemic respiratory failure: Status: Acute Category: Medical Code(s): J96.11 - Chronic respiratory failure with hypoxia (3) Mood disorder: Status: Acute Category: Medical Code(s): F39 - Unspecified mood [affective] disorder (4) Tobacco dependence: Status: Acute Category: Medical Code(s): F17.200 - Nicotine dependence, unspecified, uncomplicated (5) CKD (chronic kidney disease) stage 4, GFR 15-29 ml/min: Status: Acute Category: Medical Code(s): N18.4 - Chronic kidney disease, stage 4 (severe) (6) Acute on chronic heart failure with preserved ejection fraction (HFpEF): Status: Acute Category: Medical Code(s): I50.33 - Acute on chronic diastolic (congestive) heart failure (7) Obesity hypoventilation syndrome: Status: Acute Category: Medical Code(s): E66.2 - Morbid (severe) obesity with alveolar hypoventilation (8) Seizure disorder: Status: Acute Category: Medical Code(s): G40.909 - Epilepsy, unspecified, not intractable, without status epilepticus (9) Morbid obesity: Status: Acute Category: Medical Code(s): E66.01 - Morbid (severe) obesity due to excess calories (10) Congestive cardiac failure: Status: Acute Qualifiers: Heart failure chronicity: unspecified Heart failure type: unspecified Qualified Code(s): I50.9 - Heart failure, unspecified Category: Medical Code(s): I50.9 - Heart failure, unspecified (11) Chronic kidney disease: Status: Acute Qualifiers: Chronic kidney disease stage: stage 4 (severe) Qualified Code(s): N18.4 - Chronic kidney disease, stage 4 (severe) Category: Medical Code(s): N18.9 - Chronic kidney disease, unspecified (12) Diarrhea: Status: Acute Category: Medical Code(s): R19.7 - Diarrhea, unspecified (13) Dysuria: Status: Acute Category: Medical Code(s): R30.0 - Dysuria Plan Joe Destiny 63-year-old with past medical history of diastolic heart failure, obesity hypoventilation syndrome, tobacco use disorder, morbid obesity, seizures, CKD, generalized weakness, GERD, mood disorder. Patient last admitted to this institution 01/21 to 01/27 for acute on chronic respiratory failure management. Patient presents with shortness of breath, malaise, decreased p.o. intake for several days. Patient also admits to 1 month of dysuria and diarrhea. Patient admitted for acute on chronic renal dysfunction. Problems as listed below. #Acute metabolic encephalopathy, resolved #CO2 narcosis, resolved #Acute on chronic hypercapnic respiratory failure, resolved #Obesity hypoventilation syndrome - Presented with acute metabolic encephalopathy. Initial VBG showed acute on chronic CO2 retention, pH 7.17 pCO2 80. Improved with starting BiPAP, but not resolved. Continued overnight. ? Repeat VBG, no longer showing acute retention. Continue BiPAP nightly with settings 18/8 respiratory rate 18, FiO2 30%. - Patient states she has not been wearing BiPAP for the past 3+ weeks. ? Pulmonology assisting with care. ? VBG this morning was also reassuring. #Physical deconditioning ? Was also found to be in a deplorable state, with feces all over her briefs. ? Patient states she is unable to ambulate herself, has been placed at SNF multiple times however her often checks her out of them previously. Has been is currently at [facility] for severe renal failure requiring new onset dialysis. ? PT/OT consulted, recommended SNF. Case management assisting with placement. #UTI ? UA grossly abnormal, urine culture growing E. coli which is pansensitive. No history of MDR UTIs. Blood cultures NGTD. ? Continue ceftriaxone day 3. #[place] urine ? Patient's pure wick suction container was filled with orange-tinged urine. ? Repeat UA today shows resolving UTI, but no RBCs. ? Review of medications does not show contribution to this problem. ? Continue to monitor. #SHAYLA superimposed on CKD ? Initial creatinine 2.8. Baseline around 1.6. Currently 2.0. ? Caution with fluids given history of HFpEF. #HFpEF ? Last ECHO noting EF 60% with preserved systolic function. ? Currently stable. However BNP initially 16,400 but no signs of volume overload. In fact, she was volume down on admission with creatinine improving with fluids. ? BNP improved to 6730 today. ? Follow-up ECHO. ? Resumed home Bumex every 48 hours. Follow-up renal function. #Seizures - Keppra 500 mg p.o. twice daily #Tobacco use - Nitro patch 21 mg transdermal daily as needed nicotine cravings #GERD -Home PPI. #Mood disorder - Effexor 75 mg p.o.
[2024-04-05 15:46] LABS: Bacteria,Urine 1+ /lpf
--- NOTE | 2024-04-05 18:14 | PC.NURSE ---
pt sitting supine in bed watching tv. pt able to tell name and birthday, but unsure of time or location. lung sounds diminished. pt has orange/red urine draining into purewick canister. MD aware and urine sample sent. pt has not complained of pain this shift. 3L nc in place and pt is tolerating well. no complaints at this time. call light within reach.
[2024-04-05] MEDS: TRAZODONE 50MG TABLET 100 MG PO (20:13)
[2024-04-05] MEDS: ROPINIROLE 1MG TABLET 1 MG PO (20:13)
[2024-04-05] MEDS: PANTOPRAZOLE 40MG TABLET 40 MG PO (20:13)
[2024-04-05] MEDS: ONDANSETRON 4MG/2ML VIAL 4 MG IV (21:53)
[2024-04-05] MEDS: ACETAMINOPHEN 325MG TAB 650 MG PO (21:53)
[2024-04-06] VITALS (14 sets, daily range): BP systolic 105–141; BP diastolic 43–107; PULSE 57–78; RESP 15–21; TEMP 36.6–37.2; O2SAT 90–100; BMI 60.2
[2024-04-06] MEDS: CEFTRIAXONE SODIUM 2 GM in 0.9 % SODIUM CHLORIDE 100 ML IV (02:17)
--- NOTE | 2024-04-06 05:24 | PC.NURSE ---
Patient did not sleep much tonight. Off an on. She wore her bipap very little, she put it on around 8pm and then became nausea and had to be taken off. she put it back on after medication was given for a little but then refused to wear it any longer. Probably had it on for another 3-4hrs total. She did attempt to get up to the bedside to have a BM and the patient was unable to stand and then was placed back in bed with a bed preciado. Purewick was changed and linen was changed. Patient is AxO and on 3L NC when not on bipap
[2024-04-06] MEDS: FLUTICASONE/UMECLIDIN/VILANTER 100/62.5/25MCG INHALER 1 PUFF IH (06:06)
[2024-04-06] MEDS: IPRATROPIUM/ALBUTEROL 3 ML NEB IH ×4 (06:06→23:20)
[2024-04-06] MEDS: CHOLECALCIFEROL 1,000 UNITS (25MCG) TABLET 125 MCG PO (08:09)
[2024-04-06] MEDS: MAGNESIUM OXIDE 400MG TABLET 400 MG PO (08:09)
[2024-04-06] MEDS: BUSPIRONE HCL 10 MG TABLET 20 MG PO (08:09)
[2024-04-06] MEDS: BISOPROLOL 5MG TABLET 5 MG PO (08:09)
[2024-04-06] MEDS: NYSTATIN TOPICAL POWDER 30GM TP ×4 (08:15→20:20)
--- NOTE | 2024-04-06 08:31 | P.PN_ITS ---
Subjective *Date: 04/06/24 *Time: 08:31 Medical Exam Vital signs and Labs for Last 24 Hours: Vital Signs Temp Pulse Pulse Resp BP Pulse Ox O2 Del Method 04/06/24 08:29 Nasal Cannula 04/06/24 08:00 Nasal Cannula 04/06/24 06:58 Nasal Cannula 04/06/24 06:06 72 04/06/24 06:06 78 04/06/24 06:06 96 Nasal Cannula 04/06/24 05:00 Nasal Cannula 04/06/24 04:00 98.0 F 70 18 109/43 L 98 Nasal Cannula 04/06/24 03:00 Nasal Cannula 04/06/24 01:32 04/06/24 01:00 Room Air 04/06/24 00:00 98.0 F 72 20 105/46 L 100 BiPAP 04/05/24 23:00 72 04/05/24 23:00 76 04/05/24 23:00 BiPAP 04/05/24 22:40 04/05/24 21:00 Nasal Cannula, BiPAP 04/05/24 20:00 BiPAP 04/05/24 20:00 98.4 F 74 17 103/59 L 96 Nasal Cannula 04/05/24 18:44 Nasal Cannula 04/05/24 18:17 72 04/05/24 18:17 76 04/05/24 18:17 94 L Nasal Cannula 04/05/24 17:00 Nasal Cannula 04/05/24 16:00 78 22 110/62 98 Nasal Cannula 04/05/24 15:00 Nasal Cannula 04/05/24 13:00 Nasal Cannula 04/05/24 11:47 66 20 123/63 96 Nasal Cannula 04/05/24 11:10 67 04/05/24 11:10 68 04/05/24 11:10 95 Nasal Cannula 04/05/24 11:00 Nasal Cannula 04/05/24 09:00 Nasal Cannula O2 Flow Rate FiO2 04/06/24 08:29 3 04/06/24 08:00 3 04/06/24 06:58 3 04/06/24 06:06 04/06/24 06:06 04/06/24 06:06 3 04/06/24 05:00 3 04/06/24 04:00 04/06/24 03:00 3 04/06/24 01:32 40 04/06/24 01:00 04/06/24 00:00 04/05/24 23:00 04/05/24 23:00 04/05/24 23:00 04/05/24 22:40 40 04/05/24 21:00 04/05/24 20:00 04/05/24 20:00 3 04/05/24 18:44 3 04/05/24 18:17 04/05/24 18:17 04/05/24 18:17 3 04/05/24 17:00 3 04/05/24 16:00 3 04/05/24 15:00 3 04/05/24 13:00 3 04/05/24 11:47 3 04/05/24 11:10 04/05/24 11:10 04/05/24 11:10 3 04/05/24 11:00 3 04/05/24 09:00 3 Intake and Output 04/05/24 04/06/24 04/06/24 23:59 07:59 15:59 Intake Total 820 / 1460 Output Total 1100 / 1350 0 / 0 Balance -280 / 110 0 / 0 Intake: Intake, Oral Amount 630 / 1170 Intake, Total IV Amount 190 / 290 levETIRAcetam 500 mg In 0.9 % 190 / 290 Sodium Chloride 100 ml @ 210 mls/hr IV Q12H [facility] Rx#:[id number] Output: Output, Urine Amount 1100 / 1350 0 / 0 Other: Number of Unmeasured Voids 0 1 Weight 139.253 kg Patient Weight 04/06/24 23:59 Weight 139.253 kg Laboratory Results - last 24 hr 04/05/24 07:45: WBC 4.1 L, RBC 3.27 L, Hgb 9.1 L, Hct 31.2 L, MCV 95.4, MCH 27.8, MCHC 29.2 L, RDW 13.9, Plt Count 145, MPV 9.9, Neut % (Auto) 55.6, Lymph % (Auto) 30.4, [place] % (Auto) 12.6 H, Eos % (Auto) 0.7, Baso % (Auto) 0.5, Neut # (Auto) 2.3, Lymph # (Auto) 1.2, [place] # (Auto) 0.5, Eos # (Auto) 0.0, Baso # (Auto) 0.0, Sodium 137, Potassium 4.4, Chloride 107, Carbon Dioxide 34 H, Anion Gap 0.4 L, BUN 54 H, Creatinine 2.00 H, Estimated Creat Clear 19, Estimated GFR 25 L, Est GFR ( Amer) 30 L, Glucose 92, Calcium 8.1 L, Magnesium 2.2, Total Bilirubin 0.3, AST 25, ALT 10 L, Alkaline Phosphatase 115, NT-Pro-B Natriuret Pep 6730 H, Total Protein 5.9 L, Albumin 2.9 L, Globulin 3.0, Albumin/Globulin Ratio 1.0 L 04/05/24 09:45: VBG pH 7.34, VBG pCO2 52.2 H, VBG pO2 86.1 H, VBG HCO3 27.4, VBG Total CO2 29.0 H, VBG O2 Saturation 96.5 H, VBG Base Excess 1.6, VBG Lactic Acid 2.3 H 04/05/24 14:45: Lactate 0.9 04/05/24 15:10: Urine Color Yellow, Urine Appearance Clear, Urine pH 6.0, Ur Specific [place] 1.020, Urine Protein Negative, Urine Glucose (UA) Negative, Urine Ketones Negative, Urine Blood Negative, Urine Nitrate Positive A, Urine Bilirubin Negative, Urine Urobilinogen 0.2, Ur Leukocyte Esterase Negative, Urine RBC None, Urine WBC 3-5, Ur Squamous Epith Cells 3-5, Urine Bacteria 1+ I & O for Labs for Last 24 Hours: Intake & Output 04/03/24 04/04/24 04/05/24 04/06/24 23:59 23:59 23:59 23:59 Intake Total 1100 / 1100 1120 / 1120 1460 / 1460 Output Total 550 / 550 950 / 950 1350 / 1350 0 / 0 Balance 550 / 550 170 / 170 110 / 110 0 / 0 Weight 136.985 kg 137.48 kg 139.706 kg 139.253 kg Microbiology Reports for the Last 24 Hours: Microbiology 04/03/24 01:10 Urine,Clean Catch Urine Culture - Final Escherichia coli 04/03/24 07:40 Blood Blood Culture - Preliminary NO GROWTH AFTER 48 HOURS 04/03/24 07:37 Blood Blood Culture - Preliminary NO GROWTH AFTER 48 HOURS The patient's infection will respond to the chosen ABx?: Yes (URINE CX (04/03) E COLI SENSITIVE TO ROCEPHIN, AFEBRILE OVER 24 HRS) Is the patient receiving the right drug, dose, and route?: Yes Could a more targeted ABx be ordered?: No (URINE CX (04/03) E COLI SENSITIVE TO ROCEPHIN, REPEAT URINE CX PENDING.) How long ABx needed (days)?: 7
[2024-04-06] MEDS: HEPARIN SODIUM 5,000 UNIT/ML VIAL 5000 UNIT SUBCUT (08:33)
[2024-04-06] MEDS: VENLAFAXINE 37.5MG TABLET 75 MG PO (08:46)
[2024-04-06] MEDS: levETIRAcetam 500 MG in 0.9 % SODIUM CHLORIDE 100 ML 210 MG IV ×2 (09:24→22:03)
[2024-04-06 16:00] LABS: ABG Base Excess 5.8 mmol/L (-2.4-2.3); ABG HCO3 32.6 mmhg (22.0-26.0); ABG Oxygen Saturation 97 % (90-100); ABG PH 7.28 mmol/L (7.35-7.45); ABG PO2 94.9 mmhg (80-100); ABG TCO2 34.8 mmhg (23-27); Lactate Arterial 0.9 mmol/L (0.4-2.0)
[2024-04-06 16:02] LABS: PEEP 8; Vent Rate 20
[2024-04-06 16:03] LABS: Allen's Test Acceptable; Oxygen 40% Bipap18/8 %; Source Right Radial
[2024-04-06 16:05] LABS: ABG PCO2 71.3 mmhg (35.0-45.0)
--- NOTE | 2024-04-06 16:09 | PC.NURSE ---
Aox 4, up with assistance times 2, 02-3 L NC, on bipap some this afternoon while sleeping, PT and OT following along with Pulmonary, 20g R FA SL, purewick in place.
[2024-04-06 16:14] LABS: Levetiracetam (Keppra) 16.9 ug/mL (10.0-40.0)
--- NOTE | 2024-04-06 20:15 | P.PN_ITS ---
Subjective *Date: 04/06/24 *Time: 20:15 Interval history: Patient refused BiPAP last night, evaluated to CO2 narcosis. Placed on BiPAP this morning, repeat ABG this morning continues to show acute on chronic hypercapnia but with improvement. Exam Data for Last 24 hours Vital signs and Labs for Last 24 Hours: Temp Pulse Resp BP Pulse Ox O2 Del Method O2 Flow Rate 99.0 F 68 20 119/69 93 L Nasal Cannula 3 04/06/24 19:39 04/06/24 19:39 04/06/24 19:39 04/06/24 19:39 04/06/24 19:39 04/06/24 19:39 04/06/24 18:51 FiO2 40 04/06/24 15:56 Laboratory Results - last 24 hr 04/03/24 07:37: Levetiracetam 16.9 04/06/24 11:03: Specimen Source Right radial, O2 % 40% bipap18/8, ABG pH 7.28 L, ABG pCO2 71.3 H, ABG pO2 94.9, ABG HCO3 32.6 H, ABG Total CO2 34.8 H, ABG O2 Saturation 97, ABG Base Excess 5.8 H, Allan Test Acceptable, ABG Lactate 0.9, Vent Rate 20, PEEP 8 I & O for Last 24 hours: Intake & Output 04/03/24 04/04/24 04/05/24 04/06/24 23:59 23:59 23:59 23:59 Intake Total 1100 / 1100 1120 / 1120 1460 / 1460 510 / 510 Output Total 550 / 550 950 / 950 1350 / 1350 0 / 0 Balance 550 / 550 170 / 170 110 / 110 510 / 510 Weight 136.985 kg 137.48 kg 139.706 kg 139.253 kg Constitutional Constitutional: no acute distress and obese *Routine HEENT Exam Head: Present normocephalic Eye: Present EOMI and PERRL ENT: Present mucous membranes moist *Routine Neck Exam Neck: Present supple; Absent lymphadenopathy *Routine Respiratory Exam Respiratory: Present CTA bilaterally *Routine Cardiovascular Exam Cardiovascular: Present RRR *Routine Abdominal Exam Abdominal: Present soft and normoactive bowel sounds; Absent tenderness *Routine Extremities Exam Extremities: Absent cyanosis, clubbing or edema *Routine Skin Exam Skin: Present warm; Absent rash *Routine Neurological Exam Neurological: Present alert and oriented X3 Assessment and Plan *Assessment and plan (1) SHAYLA (acute kidney injury): Status: Acute Category: Medical Code(s): N17.9 - Acute kidney failure, unspecified (2) Chronic hypoxemic respiratory failure: Status: Acute Category: Medical Code(s): J96.11 - Chronic respiratory failure with hypoxia (3) Mood disorder: Status: Acute Category: Medical Code(s): F39 - Unspecified mood [affective] disorder (4) Tobacco dependence: Status: Acute Category: Medical Code(s): F17.200 - Nicotine dependence, unspecified, uncomplicated (5) CKD (chronic kidney disease) stage 4, GFR 15-29 ml/min: Status: Acute Category: Medical Code(s): N18.4 - Chronic kidney disease, stage 4 (severe) (6) Acute on chronic heart failure with preserved ejection fraction (HFpEF): Status: Acute Category: Medical Code(s): I50.33 - Acute on chronic diastolic (congestive) heart failure (7) Obesity hypoventilation syndrome: Status: Acute Category: Medical Code(s): E66.2 - Morbid (severe) obesity with alveolar hypoventilation (8) Seizure disorder: Status: Acute Category: Medical Code(s): G40.909 - Epilepsy, unspecified, not intractable, without status epilepticus (9) Morbid obesity: Status: Acute Category: Medical Code(s): E66.01 - Morbid (severe) obesity due to excess calories (10) Congestive cardiac failure: Status: Acute Qualifiers: Heart failure type: unspecified Heart failure chronicity: unspecified Qualified Code(s): I50.9 - Heart failure, unspecified Category: Medical Code(s): I50.9 - Heart failure, unspecified (11) Chronic kidney disease: Status: Acute Qualifiers: Chronic kidney disease stage: stage 4 (severe) Qualified Code(s): N18.4 - Chronic kidney disease, stage 4 (severe) Category: Medical Code(s): N18.9 - Chronic kidney disease, unspecified (12) Diarrhea: Status: Acute Category: Medical Code(s): R19.7 - Diarrhea, unspecified (13) Dysuria: Status: Acute Category: Medical Code(s): R30.0 - Dysuria Plan Joe Destiny 63-year-old with past medical history of diastolic heart failure, obesity hypoventilation syndrome, tobacco use disorder, morbid obesity, seizures, CKD, generalized weakness, GERD, mood disorder. Patient last admitted to this institution 01/21 to 01/27 for acute on chronic respiratory failure management. Patient presents with shortness of breath, malaise, decreased p.o. intake for several days. Patient also admits to 1 month of dysuria and d iarrhea. Patient admitted for acute on chronic renal dysfunction. Problems as listed below. #Acute metabolic encephalopathy #CO2 narcosis #Acute on chronic hypercapnic respiratory failure #Obesity hypoventilation syndrome - Patient states she has not been wearing BiPAP for the past 3+ weeks. ? Patient refused BiPAP last night, rebounded into CO2 narcosis encephalopathy. ? Placed on BiPAP, repeat ABG this afternoon continues to show acute on chronic hypercapnia but with improvement. ? Continue BiPAP nightly with settings 18/8 respiratory rate 18, FiO2 30%. ? Follow-up repeat VBG in the morning. ? Patient is a hard stick, lab unable to get VBG and therefore ABG was obtained. Consider midline/PICC if she continues to be hard stick. #Physical deconditioning ? Was also found to be in a deplorable state, with feces all over her briefs. ? Patient states she is unable to ambulate herself, has been placed at SNF multiple times however her often checks her out of them previously. Of note, is currently at [facility] for severe renal failure requiring new onset dialysis. ? PT/OT consulted, recommended SNF. Case management assisting with placement. #UTI ? UA grossly abnormal, urine culture growing E. coli which is pansensitive. No history of MDR UTIs. Blood cultures NGTD. ? Continue ceftriaxone day 4. #[place] urine ? Patient's pure wick suction container was filled with orange-tinged urine. ? Repeat UA today shows resolving UTI, but no RBCs. ? Upon further MAR review, patient took Pyridium for UTI 2 days ago. #SHAYLA superimposed on CKD ? Initial creatinine 2.8. Baseline around 1.6. Currently 2.0. ? Caution with fluids given history of HFpEF. #HFpEF ? Last ECHO noting EF 60% with preserved systolic function. ? Currently stable. However BNP initially 16,400 but no signs of volume overload. In fact, she was volume down on admission with creatinine improving with fluids. ? BNP improved to 6730 today. ? ECHO shows normal biventricular function, RVSP greater than 30 mmHg. ? Resumed home Bumex every 48 hours. Follow-up renal function. #Seizures - IV Keppra 500 mg p.o. twice daily #Tobacco use - Nitro patch 21 mg transdermal daily as needed nicotine cravings #GERD -Home PPI. #Mood disorder - Effexor 75 mg p.o.
[2024-04-06] MEDS: TRAZODONE 50MG TABLET 100 MG PO (20:21)
[2024-04-06] MEDS: ROPINIROLE 1MG TABLET 1 MG PO (20:21)
[2024-04-06] MEDS: PANTOPRAZOLE 40MG TABLET 40 MG PO (20:21)
[2024-04-07] VITALS (13 sets, daily range): BP systolic 97–161; BP diastolic 57–97; PULSE 56–74; RESP 17–28; TEMP 36.5–36.6; O2SAT 97–99; BMI 60.7
[2024-04-07] MEDS: CEFTRIAXONE SODIUM 2 GM in 0.9 % SODIUM CHLORIDE 100 ML IV (02:28)
[2024-04-07] MEDS: IPRATROPIUM/ALBUTEROL 3 ML NEB IH ×4 (06:04→22:54)
[2024-04-07] MEDS: FLUTICASONE/UMECLIDIN/VILANTER 100/62.5/25MCG INHALER 1 PUFF IH (06:04)
[2024-04-07 07:57] LABS: ABG Base Excess 3.6 mmol/L (-2.4-2.3); ABG HCO3 31.4 mmhg (22.0-26.0); ABG Oxygen Saturation 92 % (90-100); ABG PH 7.22 mmol/L (7.35-7.45); ABG TCO2 33.8 mmhg (23-27)
[2024-04-07 08:06] LABS: Oxygen 3LPM %
[2024-04-07 08:07] LABS: ABG PCO2 79.3 mmhg (35.0-45.0); Source L RADIAL
[2024-04-07] MEDS: NYSTATIN TOPICAL POWDER 30GM TP ×3 (08:37→15:56)
[2024-04-07] MEDS: CHOLECALCIFEROL 1,000 UNITS (25MCG) TABLET 125 MCG PO (08:38)
[2024-04-07] MEDS: HEPARIN SODIUM 5,000 UNIT/ML VIAL 5000 UNIT SUBCUT (08:38)
[2024-04-07] MEDS: BUSPIRONE HCL 10 MG TABLET 20 MG PO (08:38)
[2024-04-07] MEDS: MAGNESIUM OXIDE 400MG TABLET 400 MG PO (08:38)
[2024-04-07] MEDS: BUMETANIDE 1 MG TABLET PO (08:38)
[2024-04-07] MEDS: VENLAFAXINE 37.5MG TABLET 75 MG PO (08:38)
[2024-04-07] MEDS: BISOPROLOL 5MG TABLET 5 MG PO (08:39)
[2024-04-07] MEDS: levETIRAcetam 500 MG in 0.9 % SODIUM CHLORIDE 100 ML 210 MG IV (09:39)
--- NOTE | 2024-04-07 10:59 | EXP.ACUTE.PN ---
Subjective *Date: 04/07/24 *Time: 16:28 Interval history: Wore BiPAP overnight, removed early however and transition to nasal cannula oxygen. Blood gas still showing hypercapnic failure with respiratory acidosis. Opens eyes and responds to questions appropriately. Still somewhat fatigued however. Wearing BiPAP while sleeping or at night. Nasal cannula to eat. Fluid neutral for visit. Will increase diuresis. Medical Exam Vital signs and Labs for Last 24 Hours: Vital Signs Temp Pulse Pulse Resp BP Pulse Ox O2 Del Method 04/07/24 10:40 BiPAP 04/07/24 08:49 04/07/24 08:00 98 F 63 17 115/70 99 Nasal Cannula 04/07/24 07:56 Nasal Cannula 04/07/24 07:52 Nasal Cannula 04/07/24 06:32 Nasal Cannula 04/07/24 06:04 63 04/07/24 06:04 64 04/07/24 06:04 04/07/24 05:00 BiPAP 04/07/24 04:00 97.7 F 56 L 20 122/67 98 BiPAP 04/07/24 03:00 BiPAP 04/07/24 02:04 04/07/24 01:00 BiPAP 04/07/24 00:00 97.7 F 59 L 20 97/59 L 97 BiPAP 04/06/24 23:20 57 L 04/06/24 23:20 60 04/06/24 23:00 BiPAP 04/06/24 21:45 04/06/24 21:00 Nasal Cannula 04/06/24 20:20 Nasal Cannula 04/06/24 19:39 99.0 F 68 20 119/69 93 L Nasal Cannula 04/06/24 18:51 68 04/06/24 18:51 71 04/06/24 18:51 90 L Nasal Cannula 04/06/24 17:15 BiPAP 04/06/24 16:41 BiPAP 04/06/24 16:00 98.2 F 60 20 111/69 100 BiPAP 04/06/24 15:56 04/06/24 13:35 BiPAP 04/06/24 12:00 97.9 F 61 20 117/72 98 BiPAP 04/06/24 11:57 BiPAP 04/06/24 11:05 61 04/06/24 11:05 63 04/06/24 11:05 O2 Flow Rate FiO2 04/07/24 10:40 04/07/24 08:49 40 04/07/24 08:00 3 04/07/24 07:56 3 04/07/24 07:52 3 04/07/24 06:32 3 04/07/24 06:04 04/07/24 06:04 04/07/24 06:04 40 04/07/24 05:00 04/07/24 04:00 04/07/24 03:00 04/07/24 02:04 40 04/07/24 01:00 04/07/24 00:00 04/06/24 23:20 04/06/24 23:20 04/06/24 23:00 04/06/24 21:45 40 04/06/24 21:00 3 04/06/24 20:20 3 04/06/24 19:39 04/06/24 18:51 04/06/24 18:51 04/06/24 18:51 3 04/06/24 17:15 04/06/24 16:41 04/06/24 16:00 04/06/24 15:56 40 04/06/24 13:35 04/06/24 12:00 04/06/24 11:57 04/06/24 11:05 04/06/24 11:05 04/06/24 11:05 40 Intake and Output 04/06/24 04/07/24 04/07/24 23:59 07:59 15:59 Intake Total 240 / 510 Output Total 0 / 0 Balance 240 / 510 0 / 0 Intake: Intake, Oral Amount 240 / 510 Output: Output, Urine Amount 0 / 0 Other: Number of Unmeasured Voids 1 Weight 140.205 kg Patient Weight 04/07/24 23:59 Weight 140.205 kg Laboratory Results - last 24 hr 04/03/24 07:37: Levetiracetam 16.9 04/06/24 11:03: Specimen Source Right radial, O2 % 40% bipap18/8, ABG pH 7.28 L, ABG pCO2 71.3 H, ABG pO2 94.9, ABG HCO3 32.6 H, ABG Total CO2 34.8 H, ABG O2 Saturation 97, ABG Base Excess 5.8 H, Allan Test Acceptable, ABG Lactate 0.9, Vent Rate 20, PEEP 8 12/24/24 07:40: Specimen Source L radial, O2 % 3lpm, ABG pH 7.22 L*, ABG pCO2 79.3 H, ABG pO2 69.0 L, ABG HCO3 31.4 H, ABG Total CO2 33.8 H, ABG O2 Saturation 92, ABG Base Excess 3.6 H I & O for Labs for Last 24 Hours: Intake & Output 04/04/24 04/05/24 04/06/24 04/07/24 23:59 23:59 23:59 23:59 Intake Total 1120 / 1120 1460 / 1460 510 / 510 Output Total 950 / 950 1350 / 1350 0 / 0 0 / 0 Balance 170 / 170 110 / 110 510 / 510 0 / 0 Weight 137.48 kg 139.706 kg 139.253 kg 140.205 kg Microbiology Reports for the Last 24 Hours: Microbiology 04/03/24 07:37 Blood Blood Culture - Preliminary NO GROWTH AFTER 4 DAYS 04/03/24 07:40 Blood Blood Culture - Preliminary NO GROWTH AFTER 4 DAYS 04/05/24 15:10 Urine,Clean Catch Urine Culture - Final No growth. Constitutional: Present no acute distress, morbidly obese, chronically ill appearing and cooperative Head: Present atraumatic and normocephalic ENT: Present normal exam Neck: Present normal inspection Respiratory: Present accessory muscle use, prolonged expiratory phase and crackles (bases); Absent rhonchi or wheezes Cardiac: Present Reg Rate and Rhythm GI: Present soft and normal bowel sounds; Absent distention or tenderness Comment:: Pérez in place Extremities: Present normal inspection, full ROM and edema (3+ in BLE to thighs) Skin: Present intact; Absent erythema Comment:: dry, scale on BLE Neuro: Present Grossly Intact, alert, awake and moves all extremities Comment:: Oriented to self and place Assessment and Plan *Assessment and plan (1) Acute on chronic heart failure with preserved ejection fraction (HFpEF): Status: Acute Category: Medical Code(s): I50.33 - Acute on chronic diastolic (congestive) heart failure (2) Acute hypercapnic respiratory failure: Status: Acute Category: Medical Code(s): J96.02 - Acute respiratory failure with hypercapnia (3) Chronic hypoxemic respiratory failure: Status: Acute Category: Medical Code(s): J96.11 - Chronic respiratory failure with hypoxia (4) SHAYLA (acute kidney injury): Status: Acute Category: Medical Code(s): N17.9 - Acute kidney failure, unspecified (5) Mood disorder: Status: Acute Category: Medical Code(s): F39 - Unspecified mood [affective] disorder (6) Tobacco dependence: Status: Acute Category: Medical Code(s): F17.200 - Nicotine dependence, unspecified, uncomplicated (7) CKD (chronic kidney disease) stage 4, GFR 15-29 ml/min: Status: Acute Category: Medical Code(s): N18.4 - Chronic kidney disease, stage 4 (severe) (8) Obesity hypoventilation syndrome: Status: Acute Category: Medical Code(s): E66.2 - Morbid (severe) obesity with alveolar hypoventilation (9) Seizure disorder: Status: Acute Category: Medical Code(s): G40.909 - Epilepsy, unspecified, not intractable, without status epilepticus (10) Morbid obesity: Status: Acute Category: Medical Code(s): E66.01 - Morbid (severe) obesity due to excess calories (11) Congestive cardiac failure: Status: Acute Qualifiers: Heart failure chronicity: unspecified Heart failure type: unspecified Qualified Code(s): I50.9 - Heart failure, unspecified Category: Medical Code(s): I50.9 - Heart failure, unspecified (12) Chronic kidney disease: Status: Acute Qualifiers: Chronic kidney disease stage: stage 4 (severe) Qualified Code(s): N18.4 - Chronic kidney disease, stage 4 (severe) Category: Medical Code(s): N18.9 - Chronic kidney disease, unspecified (13) Diarrhea: Status: Acute Category: Medical Code(s): R19.7 - Diarrhea, unspecified (14) Dysuria: Status: Acute Category: Medical Code(s): R30.0 - Dysuria Plan Joe Destiny 63-year-old with past medical history of diastolic heart failure, obesity hypoventilation syndrome, tobacco use disorder, morbid obesity, seizures, CKD, generalized weakness, GERD, mood disorder. Patient last admitted to this institution 01/21 to 01/27 for acute on chronic respiratory failure management. Patient presents with shortness of breath, malaise, decreased p.o. intake for several days. Patient also admits to 1 month of dysuria and diarrhea. Patient admitted for acute on chronic renal dysfunction. Increasing diuresis. Continues to require BiPAP. Problems addressed as follows: #Acute metabolic encephalopathy #CO2 narcosis #Acute on chronic hypercapnic respiratory failure #Obesity hypoventilation syndrome - Patient states she has not been wearing BiPAP for the past 3+ weeks. ? Wore BiPAP last night for short period. Blood gas this morning still elevated. pH 7.22, pCO2 79. Continue BiPAP while napping or asleep. -Continue DuoNebs every 6 hours scheduled. ? Continue BiPAP nightly with settings 18/8 respiratory rate 18, FiO2 30%. ? Repeat ABG ordered for the morning #Physical deconditioning ? Was also found to be in a deplorable state, with feces all over her briefs. ? Patient states she is unable to ambulate herself, has been placed at SNF multiple times however her often checks her out of them previously. Of note, is currently at [facility] for severe renal failure requiring new onset dialysis. ? PT/OT consulted, recommended SNF. Case management assisting with placement. #UTI ? UA grossly abnormal, urine culture growing E. coli which is pansensitive. No history of MDR UTIs. Blood cultures NGTD. ? Continue ceftriaxone 2 g daily, today is day 5. #Alger urine ? Patient's pure wick suction container was filled with orange-tinged urine. ? Repeat UA today shows resolving UTI, but no RBCs. ? Upon further MAR review, patient took Pyridium for UTI 2 days ago. #SHAYLA superimposed on CKD ? Initial creatinine 2.8. Baseline around 1.6. Unable to obtain labs today. Repeat CBC, CMP, magnesium ordered for the morning. -Appears volume overloaded, anticipate improvement with aggressive diuresis #HFpEF ? Last ECHO noting EF 60% with preserved systolic function. ? Currently stable. However BNP initially 16,400 but no signs of volume overload. Increase diuretics to Bumex 2 mg twice daily ? ECHO shows normal biventricular function, RVSP greater than 30 mmHg. #Seizures - IV Keppra 500 mg p.o. twice daily #Tobacco use - Nitro patch 21 mg transdermal daily as needed nicotine cravings #GERD -Home PPI. #Mood disorder - Effexor 75 mg p.o. Full code
--- NOTE | 2024-04-07 12:28 | PC.NURSE ---
Yarelis NATION and an ER nurse both tired with US to get labs and couldn't get a vein.
[2024-04-07] MEDS: BUMETANIDE 1MG/4ML VIAL 1 MG IV (15:56)
--- NOTE | 2024-04-07 17:07 | PC.NURSE ---
16:00 charge aware pt needs a new iv and stated we can see if Yarelis NATION can try after her patient leaves the floor.
--- NOTE | 2024-04-07 17:08 | PC.NURSE ---
17:00 charge reminded about iv needing to be replaced and house now aware.
--- NOTE | 2024-04-07 18:27 | PC.NURSE ---
Bg tried an iv and unsuccessful. IV in right arm removed.
[2024-04-07 18:46] LABS: ABG Base Excess 7.9 mmol/L (-2.4-2.3); ABG HCO3 33.6 mmhg (22.0-26.0); ABG Oxygen Saturation 99 % (90-100); ABG PH 7.34 mmol/L (7.35-7.45); ABG PO2 136.9 mmhg (80-100); ABG TCO2 35.5 mmhg (23-27)
[2024-04-07 18:55] LABS: Oxygen 40 %; Vent Rate 22
[2024-04-07 18:56] LABS: ABG PCO2 63.4 mmhg (35.0-45.0); Allen's Test y; Source lr
[2024-04-07] MEDS: BUMETANIDE 1 MG TABLET 2 MG PO (19:26)
[2024-04-07] MEDS: ROPINIROLE 1MG TABLET 1 MG PO (20:01)
[2024-04-07] MEDS: levETIRAcetam 500 MG TABLET PO (20:01)
[2024-04-07] MEDS: PANTOPRAZOLE 40MG TABLET 40 MG PO (20:01)
[2024-04-08] VITALS (9 sets, daily range): BP systolic 85–130; BP diastolic 42–75; PULSE 60–78; RESP 20–22; TEMP 36.9–37.2; O2SAT 94–100; BMI 60.7
[2024-04-08] MEDS: HEPARIN SODIUM 5,000 UNIT/ML VIAL 5000 UNIT SUBCUT ×3 (00:45→15:41)
--- NOTE | 2024-04-08 04:25 | PC.NURSE ---
Patient is alert and oriented. Patient was observed to have occasional wakeful periods and resting periods (eyes closed, respirations even) sporadically throughout the night. BiPAP has been in place for the majority of the shift; 3 L of oxygen via nasal cannula was in place up until around 23:00. Patient's vital signs have remained stable this shift with soft blood pressures. Goal met for oxygen saturations greater than 90%. Upon auscultation, crackling could be heard in both lungs; more diminished air movement could be heard in the right lobes. Patient has active bowel sounds, and abdomen is soft without tenderness to palpation. Mild excoriation was observed in the abdominal/pelvic folds and underneath her breasts. Moderate edema noted in her bilateral lower extremities. Scheduled medications were administered as appropriately (minus Nystatin powder per refusal) per MAR. Medications per IV administration were not administered per utter lack of IV access/veins for gain, also since previous shift (see prior notes); MD aware per day shift report. Patient has been drinking adequate amounts of ice water this shift. She has also been having adequate urine output; purewick remains in place; urine emptied from canister and documented accordingly. Patient has been relying on staff for repositioning in bed. At this time, the patient is resting in bed without further complaints. No acute changes noted thus far. Call light within reach. Seizure pads in place per protocol/history of seizures.
[2024-04-08] MEDS: IPRATROPIUM/ALBUTEROL 3 ML NEB IH ×3 (06:29→18:57)
[2024-04-08] MEDS: FLUTICASONE/UMECLIDIN/VILANTER 100/62.5/25MCG INHALER 1 PUFF IH (06:30)
[2024-04-08 07:20] LABS: Chloride 103 mmol/L (98-107); Sodium 137 mmol/L (136-145)
[2024-04-08 07:23] LABS: Alanine Aminotransferase 11 U/L (12-78); Alkaline Phosphatase 99 U/L (38-126); Aspartate Amino Transferase 25 U/L (14-36); Bilirubin,Total 0.3 mg/dl (0.2-1.3); Blood Urea Nitrogen 47 mg/dl (7-17); Calcium 8.6 mg/dl (8.4-10.2); Carbon Dioxide 36 mmol/L (22.0-30.0); Creatinine Clearance Estimated 20 mL/min (50-200); Estimated Glomerular Filt Rate 27 ml/min (>60); GFR (African American) 32 ML/MIN (>60); Globulin 2.9 g/dL (1.3-3.2); Glucose 81 mg/dl (74-100); Magnesium 2.1 mg/dl (1.6-2.3); Total Protein,Serum 5.9 g/dl (6.3-8.2)
[2024-04-08 07:37] LABS: Hematocrit 32.5 % (37.0-47.0); Hemoglobin 9.2 g/dL (12.2-16.2); Red Blood Count 3.29 M/mm3 (4.20-5.40); White Blood Count 4.1 K/mm3 (4.8-10.8)
[2024-04-08 07:38] LABS: Basophils % 0.5 % (0.1-2.0); Eosinophils % 0.5 % (0.1-12.0); Lymphocytes # 0.9 K/mm3 (0.7-4.5); Lymphocytes % 20.8 % (10-50); Mean Corpuscular HGB Conc 28.3 g/dL (31.8-35.4); Mean Corpuscular Volume 98.8 fl (81-99); Mean Platelet Volume 10.7 fl (7.4-10.4); Monocytes # 0.6 K/mm3 (0.1-1.0); Monocytes % 13.5 % (1.7-9.3); Neutrophils # 2.7 K/mm3 (1.8-7.8); Neutrophils % 64.5 % (37.0-80.0); Platelet Count 133 K/mm3 (142-424); Red Cell Distribution Width 13.7 % (11.5-17.5)
[2024-04-08] MEDS: BUSPIRONE HCL 10 MG TABLET 20 MG PO (08:28)
[2024-04-08] MEDS: CHOLECALCIFEROL 1,000 UNITS (25MCG) TABLET 125 MCG PO (08:28)
[2024-04-08] MEDS: BUMETANIDE 1 MG TABLET 2 MG PO ×2 (08:29→15:41)
[2024-04-08] MEDS: levETIRAcetam 500 MG TABLET PO ×2 (08:29→20:27)
[2024-04-08] MEDS: MAGNESIUM OXIDE 400MG TABLET 400 MG PO (08:29)
[2024-04-08] MEDS: BISOPROLOL 5MG TABLET 5 MG PO (08:29)
[2024-04-08] MEDS: VENLAFAXINE 37.5MG TABLET 75 MG PO (08:29)
--- NOTE | 2024-04-08 09:24 | P.PN_ITS ---
Subjective *Date: 04/08/24 *Time: 09:24 Interval history: Patient more alert this morning. Interactive on exam. Wore BiPAP overnight. Tolerating 3 L nasal cannula, her baseline chronic oxygen. Denies any chest pain or shortness of breath. Diuresing well. -2 L in the past 24 hours. Medical Exam Vital signs and Labs for Last 24 Hours: Vital Signs Temp Pulse Pulse Resp BP Pulse Ox O2 Del Method 04/08/24 08:00 98.4 F 75 22 90/49 L 94 L Nasal Cannula 04/08/24 06:55 Nasal Cannula 04/08/24 06:29 64 04/08/24 06:29 62 04/08/24 06:29 94 L Nasal Cannula 04/08/24 05:00 BiPAP 04/08/24 04:00 98.4 F 62 20 119/75 96 BiPAP 04/08/24 03:00 BiPAP 04/08/24 01:00 BiPAP 04/08/24 00:00 99.0 F 60 20 110/50 L 100 BiPAP 04/07/24 23:34 04/07/24 23:34 66 04/07/24 23:33 63 04/07/24 23:00 BiPAP 04/07/24 21:00 Nasal Cannula 04/07/24 20:00 65 18 97 Nasal Cannula 04/07/24 20:00 97.8 F 65 18 103/57 L 97 Nasal Cannula 04/07/24 19:05 04/07/24 19:05 66 04/07/24 19:05 66 04/07/24 17:46 BiPAP 04/07/24 16:04 BiPAP 04/07/24 16:00 97.7 F 73 19 161/97 H 04/07/24 14:58 BiPAP 04/07/24 12:00 97.7 F 74 20 119/71 99 BiPAP 04/07/24 11:37 BiPAP 04/07/24 11:25 61 04/07/24 11:25 65 04/07/24 11:25 04/07/24 10:40 BiPAP O2 Flow Rate FiO2 04/08/24 08:00 3 04/08/24 06:55 3 04/08/24 06:29 04/08/24 06:29 04/08/24 06:29 2 04/08/24 05:00 04/08/24 04:00 04/08/24 03:00 04/08/24 01:00 04/08/24 00:00 04/07/24 23:34 40 04/07/24 23:34 04/07/24 23:33 04/07/24 23:00 04/07/24 21:00 3 04/07/24 20:00 3 04/07/24 20:00 04/07/24 19:05 40 04/07/24 19:05 04/07/24 19:05 04/07/24 17:46 04/07/24 16:04 04/07/24 16:00 04/07/24 14:58 04/07/24 12:00 04/07/24 11:37 04/07/24 11:25 04/07/24 11:25 04/07/24 11:25 40 04/07/24 10:40 Intake and Output 04/07/24 04/08/24 04/08/24 23:59 07:59 15:59 Intake Total 120 / 918 1152 / 1152 Output Total 1300 / 2625 875 / 875 Balance -1180 / -1707 277 / 277 Intake: Intake, Oral Amount 120 / 918 1152 / 1152 Output: Output, Urine Amount 1300 / 2625 875 / 875 Other: Number of Unmeasured Voids 0 0 Weight 140.341 kg Patient Weight 04/08/24 23:59 Weight 140.341 kg Laboratory Results - last 24 hr 04/07/24 18:12: Specimen Source lr, O2 % 40, ABG pH 7.34 L, ABG pCO2 63.4 H, ABG pO2 136.9 H, ABG HCO3 33.6 H, ABG Total CO2 35.5 H, ABG O2 Saturation 99, ABG Base Excess 7.9 H, Allan Test y, Vent Rate 22 04/08/24 06:55: WBC 4.1 L, RBC 3.29 L, Hgb 9.2 L, Hct 32.5 L, MCV 98.8, MCH 28.0, MCHC 28.3 L, RDW 13.7, Plt Count 133 L, MPV 10.7 H, Neut % (Auto) 64.5, Lymph % (Auto) 20.8, [place] % (Auto) 13.5 H, Eos % (Auto) 0.5, Baso % (Auto) 0.5, Neut # (Auto) 2.7, Lymph # (Auto) 0.9, [place] # (Auto) 0.6, Eos # (Auto) 0.0, Baso # (Auto) 0.0, Sodium 137, Potassium 5.0, Chloride 103, Carbon Dioxide 36 H, Anion Gap 3.0 L, BUN 47 H, Creatinine 1.90 H, Estimated Creat Clear 20, Estimated GFR 27 L, Est GFR ( Amer) 32 L, Glucose 81, Calcium 8.6, Magnesium 2.1, Total Bilirubin 0.3, AST 25, ALT 11 L, Alkaline Phosphatase 99, Total Protein 5.9 L, Albumin 3.0 L, Globulin 2.9, Albumin/Globulin Ratio 1.0 L I & O for Labs for Last 24 Hours: Intake & Output 04/05/24 04/06/24 04/07/24 04/08/24 23:59 23:59 23:59 23:59 Intake Total 1460 / 1460 510 / 510 120 / 918 1152 / 1152 Output Total 1350 / 1350 0 / 0 2300 / 2625 875 / 875 Balance 110 / 110 510 / 510 -2180 / -1707 277 / 277 Weight 139.706 kg 139.253 kg 140.205 kg 140.341 kg Microbiology Reports for the Last 24 Hours: Microbiology 04/03/24 07:40 Blood Blood Culture - Final NO GROWTH AFTER 5 DAYS 04/03/24 07:37 Blood Blood Culture - Final NO GROWTH AFTER 5 DAYS 04/05/24 15:10 Urine,Clean Catch Urine Culture - Final No growth. Constitutional: Present no acute distress, morbidly obese, chronically ill appearing and cooperative Head: Present atraumatic and normocephalic ENT: Present normal exam Neck: Present normal inspection Respiratory: Present accessory muscle use, prolonged expiratory phase and crac kles (bases); Absent rhonchi or wheezes Cardiac: Present Reg Rate and Rhythm GI: Present soft and normal bowel sounds; Absent distention or tenderness Comment:: Pérez in place Extremities: Present normal inspection, full ROM and edema (3+ in BLE to thighs) Skin: Present intact; Absent erythema Comment:: dry, scale on BLE Neuro: Present Grossly Intact, alert, awake, oriented x 3 and moves all extremities Assessment and Plan *Assessment and plan (1) Acute on chronic heart failure with preserved ejection fraction (HFpEF): Status: Acute Category: Medical Code(s): I50.33 - Acute on chronic diastolic (congestive) heart failure (2) Acute hypercapnic respiratory failure: Status: Acute Category: Medical Code(s): J96.02 - Acute respiratory failure with hypercapnia (3) Chronic hypoxemic respiratory failure: Status: Acute Category: Medical Code(s): J96.11 - Chronic respiratory failure with hypoxia (4) SHAYLA (acute kidney injury): Status: Acute Category: Medical Code(s): N17.9 - Acute kidney failure, unspecified (5) Mood disorder: Status: Acute Category: Medical Code(s): F39 - Unspecified mood [affective] disorder (6) Tobacco dependence: Status: Acute Category: Medical Code(s): F17.200 - Nicotine dependence, unspecified, uncomplicated (7) CKD (chronic kidney disease) stage 4, GFR 15-29 ml/min: Status: Acute Category: Medical Code(s): N18.4 - Chronic kidney disease, stage 4 (severe) (8) Obesity hypoventilation syndrome: Status: Acute Category: Medical Code(s): E66.2 - Morbid (severe) obesity with alveolar hypoventilation (9) Seizure disorder: Status: Acute Category: Medical Code(s): G40.909 - Epilepsy, unspecified, not intractable, without status epilepticus (10) Morbid obesity: Status: Acute Category: Medical Code(s): E66.01 - Morbid (severe) obesity due to excess calories (11) Congestive cardiac failure: Status: Acute Qualifiers: Heart failure type: unspecified Heart failure chronicity: unspecified Qualified Code(s): I50.9 - Heart failure, unspecified Category: Medical Code(s): I50.9 - Heart failure, unspecified (12) Chronic kidney disease: Status: Acute Qualifiers: Chronic kidney disease stage: stage 4 (severe) Qualified Code(s): N18.4 - Chronic kidney disease, stage 4 (severe) Category: Medical Code(s): N18.9 - Chronic kidney disease, unspecified (13) Diarrhea: Status: Acute Category: Medical Code(s): R19.7 - Diarrhea, unspecified (14) Dysuria: Status: Acute Category: Medical Code(s): R30.0 - Dysuria Plan Joe Dixon 63-year-old with past medical history of diastolic heart failure, obesity hypoventilation syndrome, tobacco use disorder, morbid obesity, seizures, CKD, generalized weakness, GERD, mood disorder. Patient last admitted to this institution 01/21 to 01/27 for acute on chronic respiratory failure management. Patient presents with shortness of breath, malaise, decreased p.o. intake for several days. Patient also admits to 1 month of dysuria and diarrhea. Patient admitted for acute on chronic renal dysfunction. Increasing diuresis. Continues to require BiPAP. Awaiting placement. Problems addressed as follows: #Acute metabolic encephalopathy #CO2 narcosis #Acute on chronic hypercapnic respiratory failure #Obesity hypoventilation syndrome - Patient states she has not been wearing BiPAP for the past 3+ weeks. ? Wore BiPAP all day yesterday and last night. Improved mentation today. Blood gas obtained yesterday afternoon showed improvement in pH to 7.34, pCO2 60. Continue BiPAP while napping or asleep. - Continue DuoNebs every 6 hours scheduled. ? Continue BiPAP nightly with settings 18/8 respiratory rate 18, FiO2 30%. -Will obtain repeat ABG if patient's mentation changes or has clinical signs of hypercapnia #HFpEF ? Last ECHO noting EF 60% with preserved systolic function. ? Currently stable. However BNP initially 16,400, diuresing well. Continue Bumex 2 mg p.o. twice daily. -2 L in the past 24 hours. Patient breathing more comfortable this morning. -Repeat echo from this visit shows normal biventricular function, RVSP greater t clay 30 mmHg. #Physical deconditioning ? Was also found to be in a deplorable state, with feces all over her briefs. ? Patient states she is unable to ambulate herself, has been placed at SNF multiple times however her often checks her out of them previously. Of note, is currently at [facility] for severe renal failure requiring new onset dialysis. ? PT/OT consulted, recommended SNF. Case management assisting with placement. #UTI ? UA grossly abnormal, urine culture growing E. coli which is pansensitive. No history of MDR UTIs. Blood cultures NGTD. ? Continue ceftriaxone 2 g daily, today is day 6 of 7 #SHAYLA superimposed on CKD ? Initial creatinine 2.8. Baseline around 1.6. Creatinine 1.9 this morning. BUN 47. Repeat CBC, CMP, magnesium ordered for the morning. -Appears volume overloaded, anticipate improvement with aggressive diuresis #Seizures: Transition to p.o. Keppra 500 mg p.o. twice daily #Tobacco use: Nicotine patch 21 mg transdermal daily as needed nicotine cravings #GERD: Home PPI. #Mood disorder: Effexor 75 mg p.o. Full code Cardiac diet Awaiting placement.
[2024-04-08] MEDS: NYSTATIN TOPICAL POWDER 30GM TP (15:41)
--- NOTE | 2024-04-08 17:49 | PC.NURSE ---
pt a/ox4, remains on 3 LNC, tolerating well with sats above 90%. purewick remains in place. MD notified this AM about soft blood pressures. has been sitting up in bed most of the shift watching tv. no complaints at this time, call light within reach.
[2024-04-08] MEDS: PANTOPRAZOLE 40MG TABLET 40 MG PO (20:27)
[2024-04-08] MEDS: ROPINIROLE 1MG TABLET 1 MG PO (20:27)
[2024-04-09] VITALS: BP 125/56; PULSE 62; RESP 22; TEMP 36.8; O2SAT 100
[2024-04-09] MEDS: IPRATROPIUM/ALBUTEROL 3 ML NEB IH ×3 (00:17→11:03)
[2024-04-09] MEDS: HEPARIN SODIUM 5,000 UNIT/ML VIAL 5000 UNIT SUBCUT ×2 (00:30→08:02)
[2024-04-09 00:51] VITALS: PULSE 74; PULSE 75; O2SAT 97
[2024-04-09 04:00] VITALS: BP 112/57; PULSE 91; RESP 18; TEMP 36.7; O2SAT 98; BMI 59.8
--- NOTE | 2024-04-09 04:37 | PC.NURSE ---
63 yo fe pt admitted with UTI and SHAYLA. pt is alert to self this shift. She has only slept for a couple of hours. Pt refused to use Bipap, taking it off on her own. 02 on at 3 liters per nc and has maintained her sats above 90. She was found trying to get OOB. Reminded pt of need to call for assistance due to risk of falling. Purwick in place. No BM this shift. VS have been WNL for pt
[2024-04-09 05:37] VITALS: PULSE 70; PULSE 76; O2SAT 96
[2024-04-09] MEDS: FLUTICASONE/UMECLIDIN/VILANTER 100/62.5/25MCG INHALER 1 PUFF IH (06:04)
[2024-04-09 07:02] LABS: Chloride 102 mmol/L (98-107); Sodium 137 mmol/L (136-145)
[2024-04-09 07:03] LABS: Potassium 4.2 mmoL/L (3.5-5.1)
[2024-04-09 07:06] LABS: Calcium 8.5 mg/dl (8.4-10.2); Glucose 92 mg/dl (74-100)
[2024-04-09 07:20] LABS: Alanine Aminotransferase 12 U/L (12-78); Alkaline Phosphatase 94 U/L (38-126); Anion Gap 0.2 mEq/L (5-15); Aspartate Amino Transferase 30 U/L (14-36); Bilirubin,Total 0.3 mg/dl (0.2-1.3); Blood Urea Nitrogen 52 mg/dl (7-17); Carbon Dioxide 39 mmol/L (22.0-30.0); Creatinine Clearance Estimated 20 mL/min (50-200); Estimated Glomerular Filt Rate 27 ml/min (>60); GFR (African American) 32 ML/MIN (>60)
[2024-04-09 07:21] LABS: Albumin/Globulin Ratio 1.1 (1.1-1.8); Globulin 2.8 g/dL (1.3-3.2); Total Protein,Serum 5.8 g/dl (6.3-8.2)
[2024-04-09 07:26] LABS: Basophils % 0.5 % (0.1-2.0); Eosinophils % 0.5 % (0.1-12.0); Hematocrit 30.4 % (37.0-47.0); Hemoglobin 8.9 g/dL (12.2-16.2); Lymphocytes % 32.6 % (10-50); Mean Corpuscular HGB Conc 29.3 g/dL (31.8-35.4); Mean Corpuscular Volume 95.6 fl (81-99); Mean Platelet Volume 10.5 fl (7.4-10.4); Monocytes % 12.4 % (1.7-9.3); Platelet Count 120 K/mm3 (142-424); Red Blood Count 3.18 M/mm3 (4.20-5.40); Red Cell Distribution Width 13.8 % (11.5-17.5); White Blood Count 4.2 K/mm3 (4.8-10.8)
[2024-04-09 07:27] LABS: Lymphocytes # 1.4 K/mm3 (0.7-4.5); Monocytes # 0.5 K/mm3 (0.1-1.0); Neutrophils # 2.3 K/mm3 (1.8-7.8)
[2024-04-09 08:00] VITALS: BP 111/76; PULSE 74; RESP 19; TEMP 37.1; O2SAT 99
[2024-04-09] MEDS: MAGNESIUM OXIDE 400MG TABLET 400 MG PO (08:01)
[2024-04-09] MEDS: BUMETANIDE 1 MG TABLET 2 MG PO (08:01)
[2024-04-09] MEDS: levETIRAcetam 500 MG TABLET PO (08:01)
[2024-04-09] MEDS: BISOPROLOL 5MG TABLET 5 MG PO (08:01)
[2024-04-09] MEDS: VENLAFAXINE 37.5MG TABLET 75 MG PO (08:01)
[2024-04-09] MEDS: CHOLECALCIFEROL 1,000 UNITS (25MCG) TABLET 125 MCG PO (08:02)
[2024-04-09] MEDS: BUSPIRONE HCL 10 MG TABLET 20 MG PO (08:02)
--- NOTE | 2024-04-09 10:32 | EXP.DC.SUM ---
General Admission date:: 04/02/24 Discharge date: 04/09/24 HPI HPI HPI: 63-year-old with past medical history of diastolic heart failure, obesity hypoventilation syndrome, tobacco use disorder, morbid obesity, seizures, CKD, generalized weakness, GERD, mood disorder. Patient last admitted to this institution 01/21 to 01/27 for acute on chronic respiratory failure management. Patient presents with shortness of breath, malaise, decreased p.o. intake for several days. Patient states at baseline she uses a wheelchair, but recently too weak to perform activities of daily living. Admits to 1.5 months of diarrhea. Also complains of dysuria x 1 month. Denies any recent antibiotic use. Recently hospitalized at this hospital 01/21 to 01/27 for acute on chronic respiratory distress. States at baseline she uses 2 L oxygen. Denies fevers, known sick contacts, abdominal discomfort, chest pain. Patient's in emergency room with patient and collaborates the story. Creatinine 2.8. Potassium 5.3. BUN 68. Patient admitted for acute on chronic renal dysfunction. I reviewed patient's chest x-ray at time of admission noting no acute findings. Hospital Course Hospital Course Hospital Course: Mrs. Destiny Diaz is a 63-year-old with past medical history of diastolic heart failure, obesity hypoventilation syndrome, tobacco use disorder, morbid obesity, seizures, CKD, generalized weakness, GERD, mood disorder. Patient last admitted to this institution 01/21 to 01/27 for acute on chronic respiratory failure management. Patient presents with shortness of breath, malaise, decreased p.o. intake for several days. Patient also admits to 1 month of dysuria and diarrhea. Patient admitted for acute on chronic renal dysfunction. She is responded well to diuresis. Responded well to adjustments in BiPAP. Meeting criteria for discharge to rehab. Problems addressed as follows: #Acute metabolic encephalopathy #CO2 narcosis #Acute on chronic hypercapnic respiratory failure #Obesity hypoventilation syndrome - Patient states she has not been wearing BiPAP for the past 3+ weeks prior to admission. Initiated on BiPAP during hospitalization. Has shown improved mentation, back to baseline. Blood gas normalized to her baseline with pH 7.34 and pCO2 of 60. She has chronic compensated hypercapnia. When she does not wear BiPAP, she has episodes of acute worsening of her hypercapnia leading to admission. Current BiPAP settings are 20/8 with rate of 18 and FiO2 of 30% (3 L) to maintain sats above 90%. Plan to continue BiPAP nightly. No signs of pneumonia. Stable. Continues to require 2 to 3 L oxygen during the day. #HFpEF ? Last ECHO noting EF 60% with preserved systolic function. Currently stable. However BNP initially 16,400, diuresing well. Responding well to Bumex 2 mg twice daily. Negative fluid status since admission. Edema improving. Recommend continuing Bumex at discharge. #Physical deconditioning ?Patient has had waxing and waning deconditioning and inability to care for self. Found in deplorable condition on arrival with feces all over her at time of evaluation and response by EMS. She has been unable to ambulate consistently. In and out of SNF's multiple times over the past year. If does not improve with her functionality. Has graciously been accepted by [facility] for further management. Therapy worked with patient during admission. May benefit from evaluation for long-term care pending response to therapy. #UTI ? UA grossly abnormal, urine culture with pansensitive E. coli. No history of MDR UTIs. Blood cultures NGTD. Completed 7 days therapy during admission. No further treatment at discharge #SHAYLA superimposed on CKD ? Initial creatinine 2.8. Baseline around 1.6. Improved with treatment and diuresis. BUN 52, creatinine 1.9 on day of discharge. Needs repeat CBC, CMP, magnesium in 1 week. Continue daily diuresis due to volume status. #Seizures: Continue oral Keppra 500 mg p.o. twice daily #Tobacco use: Nicotine patch 21 mg transdermal daily as needed nicotine cravings #GERD: Continue omeprazole 40 mg daily #Mood disorder: Effexor 75 mg p.o. Total time spent on discharge 32 minutes in counseling, documentation, chart review, and direct care with patient. Exam Data for Last 24 hours Vital signs and Labs for Last 24 Hours: Temp Pulse Resp BP Pulse Ox O2 Del Method O2 Flow Rate 98.7 F 74 19 111/76 99 Nasal Cannula 3 04/09/24 08:00 04/09/24 08:00 04/09/24 08:00 04/09/24 08:00 04/09/24 08:00 04/09/24 10:27 04/09/24 10:27 FiO2 40 04/09/24 00:51 Laboratory Results - last 24 hr 04/09/24 06:30: WBC 4.2 L, RBC 3.18 L, Hgb 8.9 L, Hct 30.4 L, MCV 95.6, MCH 28.0, MCHC 29.3 L, RDW 13.8, Plt Count 120 L, MPV 10.5 H, Neut % (Auto) 54.0, Lymph % (Auto) 32.6, [place] % (Auto) 12.4 H, Eos % (Auto) 0.5, Baso % (Auto) 0.5, Neut # (Auto) 2.3, Lymph # (Auto) 1.4, [place] # (Auto) 0.5, Eos # (Auto) 0.0, Baso # (Auto) 0.0, Sodium 137, Potassium 4.2, Chloride 102, Carbon Dioxide 39 H, Anion Gap 0.2 L, BUN 52 H, Creatinine 1.90 H, Estimated Creat Clear 20, Estimated GFR 27 L, Est GFR ( Amer) 32 L, Glucose 92, Calcium 8.5, Magnesium 2.0, Total Bilirubin 0.3, AST 30, ALT 12, Alkaline Phosphatase 94, Total Protein 5.8 L, Albumin 3.0 L, Globulin 2.8, Albumin/Globulin Ratio 1.1 I & O for Last 24 hours: Intake & Output 04/06/24 04/07/24 04/08/24 04/09/24 23:59 23:59 23:59 23:59 Intake Total 510 / 510 120 / 918 2142 / 2142 270 / 270 Output Total 0 / 0 2300 / 2625 1375 / 1375 500 / 500 Balance 510 / 510 -2180 / -1707 767 / 767 -230 / -230 Weight 139.253 kg 140.205 kg 140.341 kg 138.3 kg Microbiology Reports for the Last 24 Hours: Microbiology 04/03/24 07:40 Blood Blood Culture - Final NO GROWTH AFTER 5 DAYS 04/03/24 07:37 Blood Blood Culture - Final NO GROWTH AFTER 5 DAYS Constitutional Constitutional: no acute distress, morbidly obese and chronically ill appearing *Routine HEENT Exam Head: Present normocephalic Eye: Present EOMI and PERRL ENT: Present mucous membranes moist *Routine Neck Exam Neck: Present supple; Absent lymphadenopathy *Routine Respiratory Exam Respiratory: Present distant breath sounds, diminished air movement and normal respiratory effort; Absent rhonchi, wheezes or crackles *Routine Cardiovascular Exam Cardiovascular: Present RRR *Routine Abdominal Exam Abdominal: Present soft and normoactive bowel sounds; Absent tenderness *Routine Rectal Exam Patient deferred: visual exam *Routine Exam Patient deferred: external exam *Routine Extremities Exam Extremities: Present edema (2+ to mid loera, significant wrinkling of skin); Absent cyanosis or clubbing *Routine Skin Exam Skin: Present dry and warm; Absent rash *Routine Neurological Exam Neurological: Present alert, oriented X3 and moving all extremities; Absent altered mental status Results Data Completed and Pending Labs on day of discharge: Labs from last 24 hours 04/09/24 06:30 WBC 4.2 L RBC 3.18 L Hgb 8.9 L Hct 30.4 L MCV 95.6 MCH 28.0 MCHC 29.3 L RDW 13.8 Plt Count 120 L MPV 10.5 H Neut % (Auto) 54.0 Lymph % (Auto) 32.6 [place] % (Auto) 12.4 H Eos % (Auto) 0.5 Baso % (Auto) 0.5 Neut # (Auto) 2.3 Lymph # (Auto) 1.4 [place] # (Auto) 0.5 Eos # (Auto) 0.0 Baso # (Auto) 0.0 Sodium 137 Potassium 4.2 Chloride 102 Carbon Dioxide 39 H Anion Gap 0.2 L BUN 52 H Creatinine 1.90 H Estimated Creat Clear 20 Estimated GFR 27 L Est GFR ( Amer) 32 L Glucose 92 Calcium 8.5 Magnesium 2.0 Total Bilirubin 0.3 AST 30 ALT 12 Alkaline Phosphatase 94 Total Protein 5.8 L Albumin 3.0 L Globulin 2.8 Albumin/Globulin Ratio 1.1 DS: Diagnosis Discharge Diagnosis (1) Acute on chronic heart failure with preserved ejection fraction (HFpEF): Status: Acute Code(s): I50.33 - Acute on chronic diastolic (congestive) heart failure (2) Acute hypercapnic respiratory failure: Status: Acute Code(s): J96.02 - Acute respiratory failure with hypercapnia (3) Chronic hypoxemic respiratory failure: Status: Acute Code(s): J96.11 - Chronic respiratory failure with hypoxia (4) SHAYLA (acute kidney injury): Status: Acute Code(s): N17.9 - Acute kidney failure, unspecified (5) Mood disorder: Status: Acute Code(s): F39 - Unspecified mood [affective] disorder (6) Tobacco dependence: Status: Acute Code(s): F17.200 - Nicotine dependence, unspecified, uncomplicated (7) CKD (chronic kidney disease) stage 4, GFR 15-29 ml/min: Status: Acute Code(s): N18.4 - Chronic kidney disease, stage 4 (severe) (8) Obesity hypoventilation syndrome: Status: Acute Code(s): E66.2 - Morbid (severe) obesity with alveolar hypoventilation (9) Seizure disorder: Status: Acute Code(s): G40.909 - Epilepsy, unspecified, not intractable, without status epilepticus (10) Morbid obesity: Status: Acute Code(s): E66.01 - Morbid (severe) obesity due to excess calories (11) Congestive cardiac failure: Status: Acute Code(s): I50.9 - Heart failure, unspecified Qualifiers: Heart failure chronicity: unspecified Heart failure type: unspecified Qualified Code(s): I50.9 - Heart failure, unspecified (12) Chronic kidney disease: Status: Acute Code(s): N18.9 - Chronic kidney disease, unspecified Qualifiers: Chronic kidney disease stage: stage 4 (severe) Qualified Code(s): N18.4 - Chronic kidney disease, stage 4 (severe) (13) Diarrhea: Status: Acute Code(s): R19.7 - Diarrhea, unspecified (14) Dysuria: Status: Acute Code(s): R30.0 - Dysuria Meds Home Medications and Allergies Home Medications ?Medication ?Instructions ?Recorded ?Confirmed ?Type albuterol sulfate 90 mcg/actuation 2 puff inhalation Q6HP PRN 04/09/24 Rx aerosol inhaler Shortness Of Breath #8.5 grams bisoprolol fumarate 5 mg tablet 5 mg PO DAILY 30 days #30 tabs 04/09/24 Rx bumetanide 1 mg tablet 2 mg (2 x 1 mg) PO DAILY 30 days 04/09/24 Rx #60 tabs buspirone 10 mg tablet 20 mg (2 x 10 mg) PO DAILY #30 tabs 04/09/24 Rx cholecalciferol (vitamin D3) 25 125 mcg (5 x 25 mcg (1,000 unit)) 12/26/24 Rx mcg (1,000 unit) tablet PO DAILY 30 days #150 tabs fluticasone fur. 100 mcg-umeclid 1 inh inhalation DAILY 30 days #60 04/09/24 Rx 62.5 mcg-vilant 25 mcg ea inhalat.powder (Trelegy Ellipta) levetiracetam 500 mg tablet 500 mg PO BID 30 days #60 tabs 04/09/24 Rx magnesium oxide 400 mg (241.3 mg 400 mg PO DAILY 30 days #30 tabs 04/09/24 Rx magnesium) tablet nicotine 21 mg/24 hr daily 21 mg transdermal DAILY 30 days 04/09/24 Rx transdermal patch #30 ea nystatin 100,000 unit/gram topical 1 applic topical QID 30 days #60 04/09/24 Rx powder grams omeprazole 40 mg capsule,delayed 40 mg PO DAILY 30 days #30 caps 04/09/24 Rx release ropinirole 1 mg tablet 1 mg PO HS 30 days #30 tabs 04/09/24 Rx spironolactone 25 mg tablet 25 mg PO DAILY 30 days #30 tabs 04/09/24 Rx venlafaxine 75 mg tablet 75 mg PO DAILY 30 days #30 tabs 04/09/24 Rx New Prescriptions to Start Prescriptions: albuterol sulfate Marly,Michael bisoprolol fumarate Marly,Michael bumetanide Marly,Michael buspirone Marly,Michael cholecalciferol (vitamin D3) Marly,Michael [id number] [Trelegy Ellipta] Marly,Michael levetiracetam Marly,Michael magnesium oxide Marly,Michael nicotine Marly,Michael nystatin Marly,Michael omeprazole Marly,Michael ropinirole Marly,Michael spironolactone Marly,Michael venlafaxine Michael Luke Allergies Allergy/AdvReac Type Severity Reaction Status Date / Time Penicillins Allergy Verified 08/09/23 06:26 Discharge Plan Disposition Patient Disposition: Xfer SNF Condition: Fair Discharge Order Discharge Orders: Discharge Order (Routine); Ordered 04/09/24 Ordered By: Michael Luke Follow up Plan Follow up with: Armen Sheffield MD [Physician] - 05/27/24 1:20 pm Prescriptions/Medication Reconciliation: New cholecalciferol (vitamin D3) 25 mcg (1,000 unit) Tablet 125 mcg PO DAILY 30 Days Qty: 150 0RF Trelegy Ellipta 100-62.5-25 mcg Blister With Device 1 inh inhalation DAILY 30 Days Qty: 60 0RF nicotine 21 mg/24 hr Patch 24 Hour 21 mg transdermal DAILY 30 Days Qty: 30 0RF nystatin 100,000 unit/gram Powder 1 applic topical QID 30 Days Qty: 60 0RF Continued ropinirole 1 MG tablet 1 mg PO HS 30 Days Qty: 30 0RF venlafaxine 75 mg tablet 75 mg PO DAILY 30 Days Qty: 30 0RF Patient Comments: TAKE ONE TABLET BY MOUTH EVERY DAY levetiracetam 500 MG tablet 500 mg PO BID 30 Days Qty: 60 0RF omeprazole 40 mg Capsule,Delayed Release(Dr/Ec) 40 mg PO DAILY 30 Days Qty: 30 0RF spironolactone 25 mg Tablet 25 mg PO DAILY 30 Days Qty: 30 0RF bisoprolol fumarate 5 mg Tablet 5 mg PO DAILY 30 Days Qty: 30 0RF magnesium oxide 400 MG tablet 400 mg PO DAILY 30 Days Qty: 30 0RF buspirone 10 mg Tablet 20 mg PO DAILY Qty: 30 0RF albuterol sulfate 90 mcg/actuation HFA aerosol inhaler 2 puff INHALATION Q6HP PRN (Reason: Shortness Of Breath) Qty: 8.5 0RF Changed bumetanide 1 mg tablet 2 mg PO DAILY 30 Days Qty: 60 0RF Problem Reconciliation Problems Reviewed?: Yes Patient Discharge Instructions ACTIVITY: Continue current activity DIET: continue same diet Patient Instructions: DI for Urinary Tract Infection (UTI), DI for Respiratory Failure, DI for Acute Kidney Injury Print Language: Trinidadian Providers Primary Care Provider: Zachariah Mercado Admit Provider: Beltran Elizondo Attending Provider: Beltran Elizondo
[2024-04-09 11:04] VITALS: PULSE 63; PULSE 65; O2SAT 96
[2024-04-09] MEDS: NYSTATIN TOPICAL POWDER 30GM TP (12:20)
== END 2024-04-09 12:48 | DRG 682 ==
LOC: ER 20:12 → 2ND 22:59 → ICU 04-04 23:27
PROVIDERS: Internal Medicine; Internal Medicine Adolescent Medicine; Internal Medicine Pulmonary Disease; Admitting Provider Student in an Organized Health Care Education/Training Program; Emergency Provider Emergency Medicine; PCP Internal Medicine Adolescent Medicine; Visit Provider Student in an Organized Health Care Education/Training Program
DX: N17.9 Acute kidney failure, unspecified (principal); I50.33 Acute on chronic diastolic (congestive) heart failure; J96.22 Acute and chronic respiratory failure with hypercapnia; E66.2 Morbid (severe) obesity with alveolar hypoventilation; Z68.43 Body mass index [BMI] 50.0-59.9, adult; N39.0 Urinary tract infection, site not specified; F17.210 Nicotine dependence, cigarettes, uncomplicated; N18.4 Chronic kidney disease, stage 4 (severe); F39 Unspecified mood [affective] disorder; G40.909 Epilepsy, unspecified, not intractable, without status epilepticus; Z99.81 Dependence on supplemental oxygen; Z74.01 Bed confinement status; Z74.1 Need for assistance with personal care
CPT/HCPCS: 36415; 71045; 80048; 80053; 80177; 81001; 82550; 82803; 83605; 83690; 83735; 83880; 84145; 84443; 85025; 87040; 87045; 87086; 87088; 87186; 87633; 93005; 93306; 94640; 94660; 94761; 97110; 97163; 97165; 97530; 99285; J0696; J1644; J1939; J1953; J2405; J7030; J7620

== ENCOUNTER 2024-05-27 10:57 | Emergency (ER) | payer MEDICARE, MEDICAID, SELFPAY ==
--- NOTE | 2024-05-27 11:14 | ED_ITS ---
Discharge Plan Disposition Patient Disposition: Date/Time: 05/27/24 11:03 Clinical Impressions Clinical Impression: Acute and chronic respiratory failure with hypoxia, Morbid obesity, Cardiac arrest Discharge ED Provider: Chely Hernandez General Adult HPI General Stated complaint: cardiac arrest Time Seen by Provider: 05/27/24 10:57 History of Present Illness HPI narrative: This patient is a 64-year-old female with a history of CKD, morbid obesity, CHF, COPD, obesity hypoventilation syndrome presenting to the emergency department with EMS as a CODE BLUE. History is provided by EMS, as no family is at bedside. EMS notes that they were called to the home of the patient for shortness of breath and patient had a witnessed arrest. They were unable to place ET tube, so supraglottic airway was placed. ACLS was continued en route until arrival with epi administered per ACLS protocol. Patient had asystole on each pulse check. Related Data Previous Rx's ?Medication ?Instructions ?Recorded albuterol sulfate 90 mcg/actuation 2 puff inhalation Q6HP PRN 04/09/24 aerosol inhaler Shortness Of Breath #8.5 grams bisoprolol fumarate 5 mg tablet 5 mg PO DAILY 30 days #30 tabs 04/09/24 bumetanide 1 mg tablet 2 mg (2 x 1 mg) PO DAILY 30 days 04/09/24 #60 tabs buspirone 10 mg tablet 20 mg (2 x 10 mg) PO DAILY #30 tabs 04/09/24 cholecalciferol (vitamin D3) 25 125 mcg (5 x 25 mcg (1,000 unit)) 04/09/24 mcg (1,000 unit) tablet PO DAILY 30 days #150 tabs fluticasone fur. 100 mcg-umeclid 1 inh inhalation DAILY 30 days #60 04/09/24 62.5 mcg-vilant 25 mcg ea inhalat.powder (Trelegy Ellipta) levetiracetam 500 mg tablet 500 mg PO BID 30 days #60 tabs 04/09/24 magnesium oxide 400 mg (241.3 mg 400 mg PO DAILY 30 days #30 tabs 04/09/24 magnesium) tablet nicotine 21 mg/24 hr daily 21 mg transdermal DAILY 30 days 04/09/24 transdermal patch #30 ea nystatin 100,000 unit/gram topical 1 applic topical QID 30 days #60 04/09/24 powder grams omeprazole 40 mg capsule,delayed 40 mg PO DAILY 30 days #30 caps 04/09/24 release ropinirole 1 mg tablet 1 mg PO HS 30 days #30 tabs 04/09/24 spironolactone 25 mg tablet 25 mg PO DAILY 30 days #30 tabs 04/09/24 venlafaxine 75 mg tablet 75 mg PO DAILY 30 days #30 tabs 04/09/24 Allergies Allergy/AdvReac Type Severity Reaction Status Date / Time Penicillins Allergy Verified 08/09/23 06:26 [facility] Disclaimer: The information contained in this section may have been updated after the patient was seen, as this information can be updated by other users. Medical History D-dimer, elevated Body lice infestation Acute and chronic respiratory failure with hypercapnia Mood disorder Tobacco dependence CKD (chronic kidney disease) stage 4, GFR 15-29 ml/min BMI 50.0-59.9, adult Obesity hypoventilation syndrome Respiratory failure with hypoxia and hypercapnia Kidney stone History of back pain History of gastroesophageal reflux (GERD) Congestive heart failure Seizure disorder COPD (chronic obstructive pulmonary disease) Surgical History History of cholecystectomy History of section Family History Other Family history of acute congestive heart failure Family history of cancer Family history of myocardial infarction Social History Smoking Status: Current every day smoker tobacco type: cigarettes packs per day: 1 second hand exposure: Yes alcohol intake: never counseling given: No substance use type: denies use counseling given: No current occupational status: retired, disabled and other Travel in the last 8 weeks: None adopted: No caregiver/support person: No foster care: No household members: spouse housing: house marital status: 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; 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 pets and animals: Yes pets and animals: cat(s) Hx Recent Travel: No sexually active: No caffeine: Yes physical activity: none cony/pentecostal: Yazidism special cony needs: No working smoke detector in home: Yes fire extinguisher in home: Yes carbon monox detector in home: No firearms in home: No do you feel safe at home: Yes victim of physical abuse: No victim of emotional abuse: No victim of sexual abuse: No would you like helpful sources: No Other Medical History Have you received the Flu Vaccine for this season: No Have you received the Pneumonia Vaccine: No ROS Obtained: Yes unobtainable due to mental status Physical Exam General General appearance: in distress and obese Comment: Unkempt, covered in bedbugs Head Head exam: atraumatic and normocephalic Eye Eye exam: Present other (Pupils fixed and dilated) ENT ENT exam: Present other (Cyanotic) Chest Chest inspection: Present other (Auto pulse in place with CPR in progress) Respiratory Respiratory exam: Present other (Breath sounds are bilaterally, ventilated via BVM with supraglottic airway) Cardiovascular Cardiovascular exam: Present other (Asystole noted on pulse check, no pulses) Abdominal Exam Abdominal exam: Absent distention Extremities Exam Extremities exam: Present edema (Bilateral lower extremity edema) Back Exam Back exam: Present normal inspection Neurological Exam Neurological exam: Present other (Unresponsive, GCS 3, no notable residual reflexes such as gag or corneal) Skin Skin exam: Present other (Cool, pale, mottled) Medical Decision Making Medical Records Screening: Per USPSTF and CDC recommendations, given the prevalence of disease in our region, it is our hospital?s policy to screen for HIV and viral Hepatitis for all patients aged 18 and over and those with ongoing risk factors. Harjinder Inquiry Pt receiving controlled substance: No Medical Decision Narrative: In summary, this patient is a 64-year-old female presenting to the Emergency Dep artment for evaluation of CODE BLUE. Differential diagnoses considered include but are not limited to PR, PE, hyperkalemia, hypoglycemia, respiratory failure, CHF exacerbation. Ruling out the most morbid conditions drove assessment. It should be noted patient's history includes morbid obesity, COPD, CHF, CKD which are not at goal therapy. This complicates all aspects of care by increasing patient's risk for morbidity. I reviewed patient's past medical records and noted his admissions for acute on chronic respiratory failure in the past, patient does not appear to follow-up well with pulmonology on an outpatient basis. Patient arrives as a CODE BLUE, pulseless, CPR in progress via auto pulse with supraglottic airway. Patient was intubated by myself. Please see procedure note below for further documentation. ACLS was continued and epi was administered per protocol. Bag ventilations through ET tube given by respiratory therapy. IO x [address] for medication infusion. Given history of CKD, I did give 2 g of calcium in case the patient is hyperkalemic. Patient was also given bicarb in case of severe acidosis. Fingerstick blood glucose was obtained and was normal. Despite multiple rounds of ACLS with CPR continued via auto pulse and BVM ventilations through ET tube, patient remained pulseless and asystolic with no appreciable residual reflexes on exam. At this time, patient has had prolonged downtime of >40 minutes with no ROSC. Given this, decision was made to call time of at 11:03 AM. Intubation: Mac 3 blade was used to place 7.5 ETT at 22 at the lip. 1 attempt. No immediate complications. CPR in progress at time of intubation. Placement confirmed with auscultation of bilateral breath sounds, absent sounds over epigastrum, color change, ETCO2. Critical Care Critical Care Time Critical Care Time: No
--- NOTE | 2024-05-27 11:20 | PC.NURSE ---
called dispatch to have public relations consultant paged
--- NOTE | 2024-05-27 11:24 | P.DN_ITS ---
Pronouncement Note Date and Time of Date of : 05/27/24 Time of : 11:03 PCOD Preliminary cause of : Acute respiratory failure with hypoxia Contributing Factors (1) Cardiac arrest: (2) Morbid obesity: Additional Data Confirmation of : no pulse, no respirations, no heart sounds and pupils fixed and dilated Family: attempt made Attending/PCP notified?: No Was code activated?: Yes Autopsy should be considered if:: Unknown or unanticipated medical complications Cause is not known with certainty on clinical grounds Would allay concerns of the public/family regarding Unexplained/unexpected apparently natural and not subject to a forensic medical jurisdiction DOA Within 24 hours of admission Sustained or apparently sustained injury while in the hospital Result of high risk, infectious and contagious disease Obstetric and pediatric arising from environmental or occupational hazard Unexplained/unexpected from dental, medical, or surgical diagnostic procedures and/or therapies Would disclose a known or suspected illness which also may have a bearing on survivors or recipients of transplanted organs Autopsy requested?: No Does not meet criteria death claim examiner notified?: Yes Organ bank notified?: Yes Advance directives: No
--- NOTE | 2024-05-27 11:28 | PC.NURSE ---
pt presents to ED with CPr in progress. CPR was started at 1025. pt presented with right IO in place. epi given 2x with EMS. arrival: 1053 1055 pulse check performed, no pulse present, PEA on zoll. 1057 1 amp of epi given FSBS 133 1057 1 amp of epi given. 1059 7.5 tube, 22 @ lip, calcium given x2. pule check performed, no pulse, PEA on monitor. 1101 pulse check,. no pulse, asystole on monitor. 1102 bicarb given, epi given 1103 10 LAC placed, luse check performed, no pulse, pea TOD 1103
[2024-05-27 11:45] VITALS: BMI 48.6
--- NOTE | 2024-05-27 11:53 | PC.NURSE ---
1145 [facility] CONTACTED, CASE DECLINED PER WAQAS LUGO
[2024-05-27] MEDS: CALCIUM CHLORIDE 1GM/10ML SYRINGE (CRASH CART) 1 GM IVP (12:04)
[2024-05-27] MEDS: EPINEPHrine 0.1 MG/ML 10ML SYRINGE (CRASH CART) 1 MG IV ×2 (12:04)
[2024-05-27] MEDS: SODIUM BICARB 8.4% 50ML SYRINGE (CRASH CART) 50 MEQ IV (12:04)
--- NOTE | 2024-05-27 12:04 | PC.NURSE ---
spoke with jack win, updated her about [facility].
--- NOTE | 2024-05-27 12:06 | PC.NURSE ---
MD and director of child welfare services speaking with family in triage room.
[2024-05-27 13:14] VITALS: BP 0/0; PULSE 0; RESP 0; TEMP -17.7; TEMP 0
== END 2024-05-27 13:00 | disposition expired ==
LOC: ER 06-02 14:02
PROVIDERS: Emergency Provider Emergency Medicine
DX: I46.9 Cardiac arrest, cause unspecified (principal); J96.21 Acute and chronic respiratory failure with hypoxia; E66.01 Morbid (severe) obesity due to excess calories; Z68.43 Body mass index [BMI] 50.0-59.9, adult; F17.210 Nicotine dependence, cigarettes, uncomplicated
CPT/HCPCS: 92950; 96374; 96375; 99291; J0171